=== PATIENT | female | born 1945 | race African-American/Black ===

== ENCOUNTER → 2016-07-29 | Emergency (ER) | payer OTHER ==
[2016-07-29 15:05] VITALS: BP 192/117; PULSE 115; TEMP 99.6; BMI 33.2
== END | disposition left against medical advice (07) ==
LOC: EDBD → JER 14:40
DX: Z53.21 Procedure and treatment not carried out due to patient leaving prior to being seen by health care provider (principal)
CPT/HCPCS: 99281-25

== ENCOUNTER 2020-01-14 19:24 | Inpatient (IN) | payer OTHER ==
--- NOTE | 2020-01-14 20:00 | PDOC ---
History of Present Illness - General Stated Complaint: WEAKNESS Time Seen by Provider: 01/14/20 19:37 - History of Present Illness Initial Comments: Pt is 74yo F brought by EMS from [facility] for unresponsiveness x2days. Unresponsive to verbal or painful stimulation. Spoke with patients daughter who states that patient had stroke 3 months ago and has been declining since then. States that the patient was awake yesterday, but unwell. States that patient has been awake, responsive, moving extremities, however is bedbound and aphasic. PMH: HTN, HLD, stroke w/ aphasia, pressure ulcer, ESRD on HD Meds: acetaminophen, amlodipine, atorvastatin, clopidogrel, labetalol, ursodiol, valsartan, nephrovite, famotidine, albuterol tPA Exclusion checklist 3-4.5h - Time Elapsed Date last known well: 01/13/20 Time last known well: 16:00 Elaspsed time: 1 Day(s) and 9 Hour(s) and 52 Minutes - Thrombolytic Therapy Candidate Is patient eligible for thrombolytic therapy: No - Exclusion Criteria 3-4.5 hr SBP greater than 185 or DBP greater than 110mmHg despite tx: No Recent IC/spinal surgery,head trauma or stroke<3mos.: Yes Blding diathesis(low plt ct, inc PTT,INR>1.7 or use of NOAC): No Blood glucose concentration less than 50mg/dL (2.7mmol/L): No - Relative Exclusion Criteria 3-4.5 hr IV/IA thrombolysis/thrombectomy @ another hosp prior arrival: No : No Stroke severity too mild (non-disabling): No Recent acute NE (w/in previous 3 months): No Major surgery or serious trauma w/in previous 14 days: No Recent GI or hemorrhage (w/in previous 21 days): No - Add'l Relative Exclusion 3-4.5 hr Age > 80: No Hx of both diabetes AND prior ischemic stroke: No Taking an oral anticoagulant regardless of INR: No - Ineligibility reason(s) Reasons No tPA given: Outside of window - delayed arrival NIH Stroke Scale - Last Known Well Date/Time & Onset Date Last Known Well: 01/13/20 Time Last Known Well: 16:00 - Initial Evaluation Level of consciousness: Not alert, requires repeat stimulation to attend Ask patient the month and their age: Both incorrect Ask patient to open & close eyes; make fist and let go: Both incorrect Best gaze (horizontal eye movement): Normal Visual field testing: Bilateral hemianopia (blind including cortical blindness) Facial paresis (Show teeth/raise eyebrows/close eyes tight): Normal symmetrical movement Motor Function: Left Arm: No movement Motor Function: Right Arm: No movement Motor Function: Left Leg: No movement Motor Function: Right Leg: No movement Limb Ataxia: Untestable (Joint fused or limb amputated), explain: Sensory(Use pinprick test arms,legs,trunk,face/side to side): Mild to moderate decrease in sensation Best language (Describe picture, name items, read sentences): Mute Dysarthria (read several words): Near unintelligible or unable to speak Extinction and Inattention: Profound nickolas-inattention or extinction to more than one modality - Total Score NIH Stroke Scale Score: 33 Past History - Medical History Allergies/Adverse Reactions: Allergies Allergy/AdvReac Type Severity Reaction Status Date / Time propofol AdvReac Verified 07/29/16 15:05 Home Medications: Ambulatory Orders Furosemide [Lasix -] 40 mg PO DAILY 08/07/14 Minoxidil 5 mg PO DAILY 08/07/14 Amlodipine Besylate [Norvasc -] 10 mg PO DAILY #30 tablet 05/14/16 Docusate Sodium [Colace -] 100 mg PO BID #60 capsule 05/14/16 Furosemide [Lasix -] 40 mg PO DAILY #0 tablet 05/14/16 Furosemide [Lasix -] 40 mg PO DAILY #30 tablet 05/14/16 Isosorbide Mononitrate [Imdur -] 60 mg PO DAILY #30 tab.sr.24h 05/14/16 Labetalol HCl [Normodyne -] 300 mg PO TID #270 tablet 05/14/16 Minoxidil 5 mg PO DAILY #60 tablet 05/14/16 Minoxidil [Minoxidil -] 5 mg PO DAILY tablet 05/14/16 Pantoprazole Sodium [Protonix -] 40 mg PO DAILY #30 tablet.ec 05/14/16 hydrALAZINE HCL [Apresoline -] 100 mg PO TID #180 tablet 05/14/16 Anemia: No Asthma: No Cancer: No Cardiac Disorders: No CVA: No COPD: No CHF: No Dementia: No Diabetes: Yes Dialysis: Yes GI Disorders: Yes (GERD) Disorders: No HTN: Yes Hypercholesterolemia: No Liver Disease: No Seizures: No Thyroid Disease: No - Surgical History Abdominal Surgery: No Appendectomy: No Cardiac Surgery: No Cholecystectomy: No Lung Surgery: No Neurologic Surgery: No Orthopedic Surgery: No - Immunization History Immunization Up to Date: Yes - Psycho-Social/Smoking History Smoking Status: No Smoking History: Never smoked Have you smoked in the past 12 months: No Number of Cigarettes Smoked Daily: 0 Review of Systems - Review of Systems Able to Perform ROS?: No Comments:: unable to obtain ROS to due unresponsiveness *Physical Exam - Physical Exam General: thin appearing CV: tachycardic, normal S1,S2, systolic murmur, no peripheral edema Resp: CTA b/l, equal breath sounds b/l, no wheezing, crackles Neuro: 0/5 motor strength b/l extremities, fixed constricted L pupil, minimally responsive to painful stimuli ED Treatment Course - LABORATORY CBC & Chemistry Diagram: 01/14/20 20:10 01/14/20 20:10 - ADDITIONAL ORDERS Additional order review: Laboratory Results 01/14/20 19:49 POC Glucometer 282 01/14/20 19:49 POC Glucometer 282 - RADIOLOGY Radiology Studies Ordered: Category Date Time Status HEAD CT WITHOUT CONTRAST [CT] Stat CT Scan 01/14/20 19:49 Ordered CHEST X-RAY PORTABLE* [RAD] Stat Radiology 01/14/20 19:47 Ordered Medical Decision Making - Medical Decision Making Pt is a 74yo F with Hx of CVA w/ aphasia and L paralysis, ESRD on HD MWF, HTN, HLD, who presents from [facility] for unresponsiveness. Vital Signs Period Temp Pulse Resp BP Sys/Ramirez Pulse Ox Last 24 Hr 98.2 F-98.2 F 111 19 122/69 90 DDx: CVA, sepsis, electrolyte abnormality, uremia Plan: labs, CT head and neck, CXR, EKG CBC with leukocytosis (WBC 17.7), lactate 3.2; CMP with hyperkalemia (5.9), elevated LFTs, elevated troponin (0.22), hypoalbuminemia Head CT with acute cerebral edema in R parietal, temporal, occipital; CT spine with no acute cervical spine fracture or dislocation; CXR with midline airway, appropriate vascular markings, no blunting of costophrenic angle, no cardiomegaly, no consolidation/patchiness On arrival, patient was saturating 90%, and put on 3L NC. On re-assessment, patient is slightly more responsive, grimacing to verbal stimuli, moving all 4 extremities, no gag reflex, continues to be tachycardic. Given tachycardia, leukocytosis, elevated lactate, pt was given 1 dose of vancomycin and 1L bolus of fluids with 75cc/hr drip, as per renal recommendations. She will receive dialysis tomorrow. Consulted Renal (Dr. Chowdhury), consulted neuro (Dr. Newman) Code status discussed with Cristal, patients daughter - DNR, not DNI Repeat Lactate trending up. Ordered ABG, BMP, and repeat lactate. Case discussed with Marguerite Gallo. Accepts for admission to ICU. No intubation at this time. Disposition Admit to ICU Discharge - Discharge Information Problems reviewed: Yes Clinical Impression/Diagnosis: Stroke Condition: Guarded - Admission Yes - Follow up/Referral - Patient Discharge Instructions - Post Discharge Activity
[2020-01-14 20:42] LABS: BASO % 0.7 % (0-2.0); EOS % 0.5 % (0-4.5); HEMOGLOBIN 11.9 GM/dL (10.7-15.3); LYMPH % 10.7 % (8-40); MCH 31.2 pg (25.7-33.7); MCHC 32.1 g/dl (32.0-36.0); MEAN CELL VOLUME 97.1 fl (80-96); MEAN PLT VOLUME 9.3 fl (7.5-11.1); MONO % 6.7 % (3.8-10.2); NEUT % 81.4 % (42.8-82.8); PLATELET COUNT 588 K/MM3 (134-434); RBC 3.81 M/mm3 (3.60-5.2); WHITE BLOOD COUNT 17.7 K/mm3 (4.0-10.0)
[2020-01-14 20:48] LABS: INR 1.02 (0.83-1.09)
[2020-01-14 20:50] LABS: ACTIVATED PTT 29.7 SECONDS (25.2-36.5)
[2020-01-14 21:04] LABS: VENOUS BASE EXCESS -2.2 mmol/L (-2-2); VENOUS O2 SATURATION 91.9 % (70-80); VENOUS PH 7.309 (7.310-7.410)
[2020-01-14 21:08] LABS: ALBUMIN 2.3 g/dl (3.4-5.0); BILIRUBIN,TOTAL 0.7 mg/dL (0.2-1); BLOOD UREA NITROGEN 62.4 mg/dL (7-18); CALCIUM 9.8 mg/dL (8.5-10.1); CREATININE 5.7 mg/dL (0.55-1.3); POTASSIUM 5.9 mmol/L (3.5-5.1); TOT PROT 8.1 g/dl (6.4-8.2)
--- NOTE | 2020-01-14 21:18 | PDOC ---
Documentation entered by Reyna Victor SCRIBE, acting as scribe for Sera Brown MD. Sera Brown MD: This documentation has been prepared by the scribe, Reyna Victor SCRIBE, under my direction and personally reviewed by me in its entirety. I confirm that the documentation accurately reflects all work, treatment, procedures, and medical decision making performed by me. Attending Attestation - Resident Resident Name: Janet Devi - ED Attending Attestation I have performed the following: I have examined & evaluated the patient, The case was reviewed & discussed with the resident, I agree w/resident's findings & plan, Exceptions are as noted - HPI HPI: 01/14/20 19:51 Patient is a 74 year old female with a significant past medical history of ESRD, hypertension, DMII, GERD, HTN, and HL, who presents to the ED, BIBA, for being unresponsive x2 days. HPI is limited to the patient being unresponsive. Allergies: propofol - Physicial Exam PE: 01/14/20 21:12 cachetic 74 yo [facility] who has been nonresponsive today. head no scalp laceration lungs no wheezing cvs tachycardia abdomen flat skin warm and dry neuro nonverbal ,does not respond to sternal rub 01/14/20 22:36 - Medical Decision Making 01/14/20 21:17 PMH DM,dememtia, left sided weakness daughter states this pt had a stroke 3 months ago and has been nonverbal since that time she is bed bound at baseline according to the daughter 01/14/20 22:06 ct scan head reveals : there is right pareital,occipital and temporal lobe suggestive of acute CVA no acute intracranial bleed I spoke with Dr Kelvin Hogan ,radiologist, and there is no midline shift, no mass effect pt is not tpa candidate,outside the time window Neurology was contacted , Dr Plascencia Hogshead Inspector Dr Raman Chowdhury was consulted and will have her go to dialysis Wednesday01/15/20 00:29 pt is now alert,nonverbal at baseline 01/15/20 17:38 Discharge - Discharge Information Problems reviewed: Yes Clinical Impression/Diagnosis: Stroke Condition: Guarded - Follow up/Referral - Patient Discharge Instructions - Post Discharge Activity
[2020-01-14] MEDS ORDERED: VANCOMYCIN 1 GM in D5W (PRE-DOCKED) 1,000 MG/250 ML IVPB STA (22:04)
[2020-01-14] MEDS ORDERED: SODIUM CHLORIDE 250 ML IV PRN (22:28)
[2020-01-14] MEDS ORDERED: SODIUM CHLORIDE 0.9% 500 ML INFUS.BAG IV ONE (22:30)
[2020-01-14] MEDS ORDERED: SODIUM CHLORIDE 1,000 ML IV SCH (22:45)
[2020-01-14] MEDS ORDERED: VANCOMYCIN 1 GRAM (PRE-DOCKED) 1,000 MG/250 ML BAG IVPB ONE (23:01)
[2020-01-14 23:14] LABS: ANISOCYTOSIS 2+
[2020-01-14] MEDS ORDERED: CALCIUM GLUCONATE 10% - 1,000 MG/10 ML VIAL IVPB ONE (23:15)
[2020-01-14] MEDS ORDERED: DEXTROSE 50%-WATER - 25 GM/50 ML VIAL IVPUSH ONE (23:16)
[2020-01-14] MEDS ORDERED: INSULIN REGULAR HUMAN 100 UNITS/ML *VIAL IVPUSH STA (23:17)
[2020-01-14] MEDS ORDERED: DEXTROSE 50%-WATER 25 GM/50 ML DISP.SYRIN ONE (23:20)
[2020-01-14] MEDS ORDERED: CALCIUM GLUCONATE 10% - 1,000 MG/10 ML VIAL ONE (23:20)
[2020-01-15 01:53] LABS: ALLENS TEST POSITIVE
[2020-01-15 01:56] LABS: ARTERIAL BLOOD GAS BASE EXCESS -5.4 mmol/L (-2-2); ARTERIAL BLOOD GAS PO2 161.5 mmHg (80-100); ARTERIAL BLOOD GAS pH 7.333 (7.350-7.450)
[2020-01-15 02:30] LABS: BLOOD UREA NITROGEN 64.9 mg/dL (7-18); CALCIUM 9.6 mg/dL (8.5-10.1); CREATININE 5.8 mg/dL (0.55-1.3); POTASSIUM 3.5 mmol/L (3.5-5.1)
--- NOTE | 2020-01-15 06:23 | CONSULT ---
Consult Consult Specialty:: PULM/CCM Referred by:: Kevin Saleh Reason for Consultation:: AMS - History of Present Illness Chief Complaint: AMS History of Present Illness: 74 year old female with medical history of ESRD (on HD), hypertension, DMII, GERD, HTN, HL, aphasia and stroke 3 months ago, admitted to ICU fro ED for progressive weakness and reported unresponsiveness. Head CT showed (01/13) right pareital, occipital and temporal lobe suggestive of acute CVA no acute intracranial bleed (neurology consulted). Patient is a DNR but not DNI. 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 No: AFIB, Aneurysm, Aortic Insufficiency, Aortic Stenosis, CAD, CHF, Deep Vein Thrombosis, Hyperlipdemia, NH, Mitral Insufficiency, Mitral Stenosis, Other Pulmonary: Yes: Previously Intubated Renal/: Yes: Renal Failure, Hemodialysis. No: Renal Inusuff, Cancer, Hematuria, Neurogenic Bladder, Renal Calculi, UTI, Other ...: No - Past Surgical History Past Surgical History: Yes: AV Fistula/Graft. No: None, AAA Repair, AICD, Amputation, Appendectomy, Arthrosocopy, Bariatric Surgery, Breast Biopsy, Bypass, CABG, Carotid Endarterectomy, Cataract Removal, Cholecystectomy, Colectomy, Colonoscopy, Colostomy, Craniotomy, , Cystectomy, Hernia Repair, Hysterectomy, Ileal Conduit, Ileosotomy, Joint Replacement, Kidney Transplant, Laminectomy, Liver Transplant, Mastectomy, Nephrectomy, Oopherectomy, Permanent Pacemaker, Splenectomy, Stent, Thoracotomy, Tonsillectomy, Tubal Ligation, Upper Endoscopy, Valve Replacement, Vein Stripping/Ligation - Alcohol/Substance Use Hx Alcohol Use: No - Smoking History Smoking history: Never smoked Have you smoked in the past 12 months: No Aproximately how many cigarettes per day: 0 - Social History Usual Living Arrangement: With Child Home Medications - Allergies Allergies/Adverse Reactions: Allergies Allergy/AdvReac Type Severity Reaction Status Date / Time propofol AdvReac Verified 07/29/16 15:05 - Home Medications Home Medications: Ambulatory Orders Albuterol Sulfate Inhaler - [Ventolin Hfa Inhaler -] 1 - 2 inh PO QID 01/15/20 Amlodipine Besylate 10 mg PO DAILY 01/15/20 Atorvastatin Ca [Lipitor] 40 mg PO HS 01/15/20 Clopidogrel Bisulfate [Clopidogrel] 75 mg PO DAILY 01/15/20 Famotidine [Pepcid -] 40 mg PO DAILY 01/15/20 Labetalol HCl [Normodyne -] 200 mg PO BID 01/15/20 Ursodiol [Actigal] 300 mg PO BID 01/15/20 Valsartan 160 mg PO DAILY 01/15/20 Review of Systems Unable to obtain ROS, reason: unable to obtain - Review of Systems Respiratory: reports: Other (intubated) Gastrointestinal: reports: Vomiting Physical Exam Vital Signs: Vital Signs Temperature 100.8 F H 01/15/20 02:00 Pulse Rate 92 H 01/15/20 04:00 Respiratory Rate 15 01/15/20 04:00 Blood Pressure 135/74 01/15/20 04:00 O2 Sat by Pulse Oximetry (%) 100 01/15/20 01:38 Constitutional: Yes: Cachectic Eyes: Yes: WNL, Conjunctiva Clear, EOM Intact HENT: Yes: WNL, Atraumatic, Normocephalic Neck: Yes: WNL, Supple, Trachea Midline Cardiovascular: Yes: WNL, Regular Rate and Rhythm, Pulse Irregular Respiratory: Yes: WNL, Regular, CTA Bilaterally Gastrointestinal: Yes: WNL, Normal Bowel Sounds ...Rectal Exam: Yes: Deferred Renal/: Yes: WNL Breast(s): Yes: WNL Musculoskeletal: Yes: Muscle Weakness, Other (Some movement in RUE and RLE with pain) Edema: Yes Edema: LUE: 1+, RUE: 1+ Integumentary: Yes: WNL Neurological: Yes: Aphasia, Weakness Labs: CBC, BMP 01/14/20 20:10 01/15/20 01:38 Imaging - Results X-ray: Image Reviewed (Personal read: no opacities noted) Problem List - Problems (1) ESRD on dialysis Code(s): N18.6 - END STAGE RENAL DISEASE; Z99.2 - DEPENDENCE ON RENAL DIALYSIS (2) Altered mental status Code(s): R41.82 - ALTERED MENTAL STATUS, UNSPECIFIED (3) Diabetes Code(s): E11.9 - TYPE 2 DIABETES MELLITUS WITHOUT COMPLICATIONS (4) Lactic acidosis Code(s): E87.2 - ACIDOSIS (5) Pneumonia, aspiration Code(s): J69.0 - PNEUMONITIS DUE TO INHALATION OF FOOD AND VOMIT Assessment/Plan 74yo F with Hx of CVA w/ aphasia and L paralysis, ESRD on HD MWF, HTN, HLD admitted to ICU for lethargy/unresponsiveness. -Neuro checks -Neuro consulted -Continue IVF as per renal, will probably receive HD today -Titrate FiO2 for SaO2>92% -Keep NPO -Empiric abx for possible aspiration PNA -Follow up on cultures -Fingersticks -Insulin coverage scale Dispo: Patient DNR not DNI
[2020-01-15] MEDS ORDERED: ACETAMINOPHEN 1000 MG/100 ML VIAL (NON FORMULARY) IVPB ONE (06:39)
[2020-01-15] MEDS: INSULIN SLIDING SCALE (NOVOLOG) 1 VIAL SQ SCH ×4 (07:52→21:15)
[2020-01-15 09:05] LABS: HEMATOCRIT 40.3 % (32.4-45.2); HEMOGLOBIN 12.5 GM/dL (10.7-15.3); MCH 30.6 pg (25.7-33.7); MEAN CELL VOLUME 98.7 fl (80-96); MEAN PLT VOLUME 9.2 fl (7.5-11.1); PLATELET COUNT 504 K/MM3 (134-434); RBC 4.08 M/mm3 (3.60-5.2); RDW 21.6 % (11.6-15.6); WHITE BLOOD COUNT 17.1 K/mm3 (4.0-10.0)
--- NOTE | 2020-01-15 09:35 | EKG ---
Test Reason : Blood Pressure : / mmHG Vent. Rate : 113 BPM Atrial Rate : 113 BPM P-R Int : 152 ms QRS Dur : 120 ms QT Int : 370 ms P-R-T Axes : 075 -09 180 degrees QTc Int : 507 ms SINUS TACHYCARDIA LEFT VENTRICULAR HYPERTROPHY WITH QRS WIDENING IVCD ABNORMAL ECG WHEN COMPARED WITH ECG OF 10-MAY-2016 15:43, No significant changes Confirmed by Olga Lidia Brennan ([id number]) on 01/15/2020 9:35:02 AM Referred By: Confirmed By:Olga Lidia Brennan
[2020-01-15 09:40] LABS: ALBUMIN 2.3 g/dl (3.4-5.0); BILIRUBIN,TOTAL 0.7 mg/dL (0.2-1); CALCIUM 9.7 mg/dL (8.5-10.1); PHOSPHOROUS 2.6 mg/dL (2.5-4.9); POTASSIUM 4.5 mmol/L (3.5-5.1); TOT PROT 8.3 g/dl (6.4-8.2)
--- NOTE | 2020-01-15 09:48 | CON.NEURO ---
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 No: AFIB, Aneurysm, Aortic Insufficiency, Aortic Stenosis, CAD, CHF, Deep Vein Thrombosis, Hyperlipdemia, CA, Mitral Insufficiency, Mitral Stenosis, Other Pulmonary: Yes: Previously Intubated Renal/: Yes: Renal Failure, Hemodialysis. No: Renal Inusuff, Cancer, Hematuria, Neurogenic Bladder, Renal Calculi, UTI, Other ...: No - Past Surgical History Past Surgical History: Yes: AV Fistula/Graft. No: None, AAA Repair, AICD, Amputation, Appendectomy, Arthrosocopy, Bariatric Surgery, Breast Biopsy, Bypass, CABG, Carotid Endarterectomy, Cataract Removal, Cholecystectomy, Colectomy, Colonoscopy, Colostomy, Craniotomy, , Cystectomy, Hernia Repair, Hysterectomy, Ileal Conduit, Ileosotomy, Joint Replacement, Kidney Transplant, Laminectomy, Liver Transplant, Mastectomy, Nephrectomy, Oopherectomy, Permanent Pacemaker, Splenectomy, Stent, Thoracotomy, Tonsillectomy, Tubal Ligation, Upper Endoscopy, Valve Replacement, Vein Stripping/Ligation - Alcohol/Substance Use Hx Alcohol Use: No - Smoking History Smoking history: Never smoked Have you smoked in the past 12 months: No Aproximately how many cigarettes per day: 0 - Social History Usual Living Arrangement: With Child Home Medications - Allergies Allergies/Adverse Reactions: Allergies Allergy/AdvReac Type Severity Reaction Status Date / Time propofol AdvReac Verified 07/29/16 15:05 - Home Medications Home Medications: Ambulatory Orders Albuterol Sulfate Inhaler - [Ventolin Hfa Inhaler -] 1 - 2 inh PO QID 01/15/20 Amlodipine Besylate 10 mg PO DAILY 01/15/20 Atorvastatin Ca [Lipitor] 40 mg PO HS 01/15/20 Clopidogrel Bisulfate [Clopidogrel] 75 mg PO DAILY 01/15/20 Famotidine [Pepcid -] 40 mg PO DAILY 01/15/20 Labetalol HCl [Normodyne -] 200 mg PO BID 01/15/20 Ursodiol [Actigal] 300 mg PO BID 01/15/20 Valsartan 160 mg PO DAILY 01/15/20 Physical Exam-Neuro Vital Signs: Vital Signs Temperature 100.7 F H 01/15/20 08:42 Pulse Rate 90 01/15/20 08:42 Respiratory Rate 17 01/15/20 09:00 Blood Pressure 128/72 01/15/20 08:42 O2 Sat by Pulse Oximetry (%) 100 01/15/20 01:38 Labs: CBC, BMP 01/15/20 08:40 01/15/20 08:40 INR, PTT INR 1.02 (0.83-1.09) 01/14/20 20:10 Assessment/Plan cc Unreponsiveness HPI 74 year old female brought patient from [place] for unreponsivness for two days p rior to admission. Patient has history of stroke three months ago and has been decline since than. Patinet has been awake two days agoa and slowly became aphasic and unreponsive. Patient has no seizure, she has high wbc and suspected to have aspiration pneumonia. Patient has large right mca cerebral edema. She is intubated and not on any sedation and no reponse to painful stimuli her nih score was 33 and she was out of window for tpa on arriaval PMH: HTN, HLD, stroke w/ aphasia, pressure ulcer, ESRD on HD Meds: acetaminophen, amlodipine, atorvastatin, clopidogrel, labetalol, ursodiol, valsartan, nephrovite, famotidine, albuterol Allergies/Adverse Reactions: Allergies Allergy/AdvReac Type Severity Reaction Status Date / Time propofol AdvReac Verified 07/29/16 15:05 Home Medications: Furosemide [Lasix -] 40 mg PO DAILY 08/07/14 Minoxidil 5 mg PO DAILY 08/07/14 Amlodipine Besylate [Norvasc -] 10 mg PO DAILY #30 tablet 05/14/16 Docusate Sodium [Colace -] 100 mg PO BID #60 capsule 05/14/16 Furosemide [Lasix -] 40 mg PO DAILY #0 tablet 05/14/16 Furosemide [Lasix -] 40 mg PO DAILY #30 tablet 05/14/16 Isosorbide Mononitrate [Imdur -] 60 mg PO DAILY #30 tab.sr.24h 05/14/16 Labetalol HCl [Normodyne -] 300 mg PO TID #270 tablet 05/14/16 Minoxidil 5 mg PO DAILY #60 tablet 05/14/16 Minoxidil [Minoxidil -] 5 mg PO DAILY tablet 05/14/16 Pantoprazole Sodium [Protonix -] 40 mg PO DAILY #30 tablet.ec 05/14/16 hydrALAZINE HCL [Apresoline -] 100 mg PO TID #180 tablet 05/14/16 ROS,FH,SH reviewed in chart NEUROLOGICAL EXAMINATION comatose intubated and no reponse to pain or verba stimuli neck is supple afebrile pupils is small sluggsihly reactive gag and corneal reflex is present bp is maintained ct head showed large right mca cerebral edema Assessment/Plan 1. Lare right mca acute stroke with aspiriation pneumoia ,cme with unreponsiveness, no knwn seizure ?? suffered anoxic injury, patient is intuabted and no reponse to pain or verbal stimuli Plan: prongnosis is poor - continue antiplatelet and statin -repeat ct can be obtained tomorrow - eeg can be obtained - supportive care, Abx as per Primary dvt prophylaxis, Pippa sol so much Norman Plascencia MD
[2020-01-15] MEDS ORDERED: PIPERACILLIN/TAZOB 2.25 GM 2.25 GM in DEXTROSE 5%-WATER - 50 ML IVPB SCH (10:00)
--- NOTE | 2020-01-15 10:37 | CON.NEP ---
Consult Consult Specialty:: Nephrology - History of Present Illness History of Present Illness: 74 year old female with medical history of ESRD (on HD), hypertension, DMII, GERD, HTN, HL, aphasia and stroke 3 months ago, admitted to ICU fro ED for progressive weakness and reported unresponsiveness. Head CT showed (01/13) right pareital, occipital and temporal lobe suggestive of acute CVA no acute intracr anial bleed (neurology consulted) Pt is well known to me. She has been losing a lot of weight. Her BP was always an issue but she seemed to be noncomplaint with meds. She was admitted many times to [facility] and after last admission for cva was transferred to SNF where she is dialyzed as well. She has been aphasic since her last stroke. Of note years ago an attempt was made to create a fistula but she became very bradycardic after she was given midazolam, fentanyl and then propofol. 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 No: AFIB, Aneurysm, Aortic Insufficiency, Aortic Stenosis, CAD, CHF, Deep Vein Thrombosis, Hyperlipdemia, PR, Mitral Insufficiency, Mitral Stenosis, Other Pulmonary: Yes: Previously Intubated Renal/: Yes: Renal Failure, Hemodialysis. No: Renal Inusuff, Cancer, Hematuria, Neurogenic Bladder, Renal Calculi, UTI, Other ...: No - Past Surgical History Past Surgical History: Yes: AV Fistula/Graft. No: None, AAA Repair, AICD, Amputation, Appendectomy, Arthrosocopy, Bariatric Surgery, Breast Biopsy, Bypass, CABG, Carotid Endarterectomy, Cataract Removal, Cholecystectomy, Colectomy, Colonoscopy, Colostomy, Craniotomy, , Cystectomy, Hernia Repair, Hysterectomy, Ileal Conduit, Ileosotomy, Joint Replacement, Kidney Transplant, Laminectomy, Liver Transplant, Mastectomy, Nephrectomy, Oopherectomy, Permanent Pacemaker, Splenectomy, Stent, Thoracotomy, Tonsillectomy, Tubal Ligation, Upper Endoscopy, Valve Replacement, Vein Stripping/Ligation - Alcohol/Substance Use Hx Alcohol Use: No - Smoking History Smoking history: Never smoked Have you smoked in the past 12 months: No Aproximately how many cigarettes per day: 0 - Social History Usual Living Arrangement: With Child Home Medications - Allergies Allergies/Adverse Reactions: Allergies Allergy/AdvReac Type Severity Reaction Status Date / Time propofol AdvReac Verified 07/29/16 15:05 - Home Medications Home Medications: Ambulatory Orders Albuterol Sulfate Inhaler - [Ventolin Hfa Inhaler -] 1 - 2 inh PO QID 01/15/20 Amlodipine Besylate 10 mg PO DAILY 01/15/20 Atorvastatin Ca [Lipitor] 40 mg PO HS 01/15/20 Clopidogrel Bisulfate [Clopidogrel] 75 mg PO DAILY 01/15/20 Famotidine [Pepcid -] 40 mg PO DAILY 01/15/20 Labetalol HCl [Normodyne -] 200 mg PO BID 01/15/20 Ursodiol [Actigal] 300 mg PO BID 01/15/20 Valsartan 160 mg PO DAILY 01/15/20 Review of Systems Unable to obtain ROS, reason: pt is unresponsive Nephrology Consult - Height Height: 5 ft 5 in - Weight Weight: 77 lb 5 oz - BMI Body Mass Index (BMI): 12.8 - Lab Results CBC,BMP: CBC, BMP 01/15/20 08:40 01/15/20 08:40 Anion Gap: Anion Gap Anion Gap 15 MMOL/L (8-16) 01/15/20 08:40 - Imaging Chest X-ray: Report Reviewed - Physical Examination Vital Signs: Vital Signs Temperature 100.7 F H 01/15/20 08:42 Pulse Rate 90 01/15/20 08:42 Respiratory Rate 17 01/15/20 09:00 Blood Pressure 128/72 01/15/20 08:42 O2 Sat by Pulse Oximetry (%) 100 01/15/20 01:38 Constitutional: Yes: No Distress, Thin Eyes: Yes: Conjunctiva Clear HENT: Yes: Atraumatic Neck: Yes: Supple, Trachea Midline Cardiovascular: Yes: Regular Rate and Rhythm Respiratory: Yes: Regular, CTA Bilaterally Gastrointestinal: Yes: Normal Bowel Sounds Access for Hemodialysis: Permacath Edema: No Peripheral Pulses WNL: Yes Wound/Incision: Yes: Clean/Dry Neurological: Yes: Unresponsive Assessment/Plan IMPRESSION esrd h/o very poorly controlled htn for years now resulting in 2 cva's. Last one was 3 months ago HTN dementia at baseline PLAN will be dialyzed neurology eval noted continue plavix will follow HD orders [facility]
--- NOTE | 2020-01-15 14:06 | PN ---
Progress Note (short form) - Note Progress Note: TRANSFER NOTE Subjective: Patient was seen and evaluated, on 4L nasal canula satting 98%, and responded only to sternal rub. Objective: General: responsive only to sternal rub, cachectic, on 4L nasal canula Head: nontraumatic, normocephalic Eyes: pinpoint pupils, mildly reactive to light Heart: S1, S2, RRR, mild systolic murmur Lungs: CTAB Abdomen: deflated/shrunken, decreased BS Extremities: cold to touch, cachectic, dry, decreased cap refill Hospital Course: 74 yo F with PMHx of ESRD on HD, HTN, DM, GERD, HLD, CVA who presented from [place] due to two days of non-responsiveness. Per daughter, the patient had a stroke 3 months ago and has been aphasic and bed bound since then. ED course was remarkable for fever, leukocytosis, lactate 3.2 (now risen to 5.8), and head CT showing acute R temporoparietal cortical infarct and subacute L frontal cortical infarct. Patient admitted to ICU for tenuous condition. Patient has been breathing comfortably on 4L nasal canula. Nephrology and Neurology were consulted, HD today per nephro and continue antiplatelet, statin, repeat CT tomorrow, and EEG per neuro. Patient has been optimized for transfer to the stroke floor. #Neuro AMS likely due to stroke - started clopidogrel #Cardio HTN (currently normotensive), HLD - continued home atorvastatin #Renal ESRD lactic acidosis - receiving HD today #Endo DM2 without complications - insulin SS #ID leukocytosis - on broad spectrum abx #FEN - IVF NS - replete lytes PRN - nutrition - dietary consult pending
[2020-01-15 15:19] LABS: ANISOCYTOSIS 1+; MACROCYTOSIS 1+
[2020-01-15 15:21] LABS: PLATELET ESTIMATE ADEQUATE
--- NOTE | 2020-01-15 15:43 | PN ---
Progress Note (short form) - Note Progress Note: ID consult dictated imp/reccd new cva leukocytosis esrd/hd cannot r/o aspiration repeat cxray cultures zosyn got vancomycin last night overall prognosis is poor
--- NOTE | 2020-01-15 16:05 | HP ---
Admitting History and Physical - Primary Care Physician PCP: Frederic Helms - Admission History of Present Illness: Pt seen/ examined in icu chart reviewed Case d/w icu team Pt known to me from recent admission [facility] Unresponsive History Source: Medical Record Limitations to Obtaining History: Clinical Condition - Past Medical History UPPER CUTTER OUT: Yes: CVA, Dementia Cardiovascular: Yes: HTN, Murmur, Pulmonary Hypertension. No: AFIB, Aneurysm, Aortic Insufficiency, Aortic Stenosis, CAD, CHF, Deep Vein Thrombosis, Hyperlipdemia, DE, Mitral Insufficiency, Mitral Stenosis, Other Pulmonary: Yes: Previously Intubated Renal/: Yes: Renal Failure, Hemodialysis. No: Renal Inusuff, Cancer, Hematuria, Neurogenic Bladder, Renal Calculi, UTI, Other ...: No - Past Surgical History Past Surgical History: Yes: AV Fistula/Graft. No: None, AAA Repair, AICD, Amputation, Appendectomy, Arthrosocopy, Bariatric Surgery, Breast Biopsy, Bypass, CABG, Carotid Endarterectomy, Cataract Removal, Cholecystectomy, Colectomy, Colonoscopy, Colostomy, Craniotomy, , Cystectomy, Hernia Repair, Hysterectomy, Ileal Conduit, Ileosotomy, Joint Replacement, Kidney Transplant, Laminectomy, Liver Transplant, Mastectomy, Nephrectomy, Oopherectomy, Permanent Pacemaker, Splenectomy, Stent, Thoracotomy, Tonsillectomy, Tubal Ligation, Upper Endoscopy, Valve Replacement, Vein Stripping/Ligation - Smoking History Smoking history: Never smoked Have you smoked in the past 12 months: No Aproximately how many cigarettes per day: 0 - Alcohol/Substance Use Hx Alcohol Use: No Home Medications - Allergies Allergies/Adverse Reactions: Allergies Allergy/AdvReac Type Severity Reaction Status Date / Time propofol AdvReac Verified 07/29/16 15:05 - Home Medications Home Medications: Ambulatory Orders Albuterol Sulfate Inhaler - [Ventolin Hfa Inhaler -] 1 - 2 inh PO QID 01/15/20 Amlodipine Besylate 10 mg PO DAILY 01/15/20 Atorvastatin Ca [Lipitor] 40 mg PO HS 01/15/20 Clopidogrel Bisulfate [Clopidogrel] 75 mg PO DAILY 01/15/20 Famotidine [Pepcid -] 40 mg PO DAILY 01/15/20 Labetalol HCl [Normodyne -] 200 mg PO BID 01/15/20 Ursodiol [Actigal] 300 mg PO BID 01/15/20 Valsartan 160 mg PO DAILY 01/15/20 Physical Examination Vital Signs: Vital Signs Temperature 100.7 F H 01/15/20 08:42 Pulse Rate 84 01/15/20 15:30 Respiratory Rate 16 01/15/20 15:30 Blood Pressure 93/76 01/15/20 15:30 O2 Sat by Pulse Oximetry (%) 100 01/15/20 01:38 Constitutional: Yes: Other (unresponsive) Neck: Yes: Supple Cardiovascular: Yes: Regular Rate and Rhythm Respiratory: Yes: Diminished Gastrointestinal: Yes: Soft Edema: LLE: 1+, RLE: 1+ Neurological: Yes: Unresponsive Labs: CBC, BMP 01/15/20 08:40 01/15/20 08:40 Imaging - Results Chest X-ray: Report Reviewed Cat Scan: Report Reviewed EKG: Report Reviewed Problem List - Problems (1) Stroke Code(s): I63.9 - CEREBRAL INFARCTION, UNSPECIFIED (2) Pneumonia, aspiration Code(s): J69.0 - PNEUMONITIS DUE TO INHALATION OF FOOD AND VOMIT (3) Diabetes Code(s): E11.9 - TYPE 2 DIABETES MELLITUS WITHOUT COMPLICATIONS (4) ESRD on dialysis Code(s): N18.6 - END STAGE RENAL DISEASE; Z99.2 - DEPENDENCE ON RENAL DIALYSIS Assessment/Plan Discussed with icu team Continue present care Abx NGT Prognosis poor Pt is dnr Will follow Cc time approx 40 min
--- NOTE | 2020-01-15 18:24 | CONS ---
INFECTIOUS DISEASE CONSULTATION DATE OF CONSULTATION: 01/15/2020 REQUESTING PHYSICIAN: The ICU service. This is a 74-year-old woman with a history of end-stage renal disease. She is on dialysis. She is status post multiple admissions to [facility], and she ultimately had a stroke with aphasia 3 months ago and was from there sent to the assisted. She is now admitted to the ICU after she was sent to the ER from the assisted where she was noted to be unresponsive. She had a CAT scan done on arrival to the ER that showed a right parietal, occipital, and temporal lobe CVA that appeared to be acute/subacute. No bleeding was noted. She was out of the window for any kind of tPA and admitted to the ICU. I am asked to see her because now her white count is up, and there is concern for infection. PAST MEDICAL HISTORY: CVA, dementia, hypertension, pulmonary hypertension. She has had respiratory failure and been intubated in the past. End-stage renal disease on dialysis via PermCath. She has never had a fistula. SURGICAL HISTORY: Notable for PermCath. ALLERGIES: She is allergic to PROPOFOL; MULTIPLE OTHER SEDATIVES cause her bradycardia according to the renal notes. MEDICATIONS AT THE LONG TERM: Include albuterol, amlodipine, atorvastatin, Plavix, famotidine, labetalol, Actigall, and losartan. REVIEW OF SYSTEMS: Patient is unresponsive. FAMILY HISTORY: Not obtainable. PHYSICAL EXAMINATION: Vital Signs: Current temperature is 100.7. She is on dialysis. Pulse is 78. Respiratory rate is 15. Blood pressure is 110/81. She is being dialyzed. HEENT: She is normocephalic. She will not open her eyes. Lungs: Diminished breath sounds at the bases. Heart: Regular rate and rhythm. Abdomen: Soft, nontender. Extremities: Without edema. LABORATORY DATA: White count is 17, hemoglobin is 12.5, platelets are 504. BUN is 63 and creatinine 6. Lactic acid is 5.8. AST of 123, ALT is 96, alkaline phosphatase of 185. COVID PCR is pending. Cultures were drawn and are pending as well. She received vancomycin, has just been started on Zosyn. She had a head CT that, as previously stated, showed acute right temporoparietal cortical infarct and a subacute left frontal cortical infarct. In summary, this is an unfortunate, elderly woman with end-stage renal disease on dialysis with new CVA and leukocytosis. Cannot rule out aspiration pneumonia. Would repeat a chest x-ray. Cultures are pending. She got vancomycin. Would continue Zosyn, adjusted for renal failure. Overall prognosis is poor. PIETER MATHEWS M.D. [id number] MTDD
[2020-01-15] MEDS: SODIUM CHLORIDE 1,000 ML IV SCH (18:39)
[2020-01-15] MEDS: PIPERACILLIN/TAZOB 2.25 GM 2.25 GM in DEXTROSE 5%-WATER - 50 ML IVPB SCH (18:44)
[2020-01-15] MEDS ORDERED: PIPERACILLIN/TAZOBACTAM 2.25 GM VIAL IVPB ONE ×2 (18:55→21:12)
[2020-01-15] MEDS ORDERED: DEXTROSE 5%-WATER - 50 ML IVPB ONE ×2 (18:55→21:12)
[2020-01-15] MEDS: CLOPIDOGREL BISULFATE 75 MG TABLET (FP) PO SCH (19:29)
[2020-01-15] MEDS: ATORVASTATIN CA 40 MG TABLET (FP) PO SCH (21:15)
[2020-01-16] MEDS: PIPERACILLIN/TAZOB 2.25 GM 2.25 GM in DEXTROSE 5%-WATER - 50 ML IVPB SCH ×3 (01:28→18:15)
[2020-01-16 06:55] LABS: BASO % 0.4 % (0-2.0); HEMATOCRIT 34.6 % (32.4-45.2); HEMOGLOBIN 11.3 GM/dL (10.7-15.3); LYMPH % 11.8 % (8-40); MCH 32.2 pg (25.7-33.7); MCHC 32.8 g/dl (32.0-36.0); MEAN CELL VOLUME 98.2 fl (80-96); MEAN PLT VOLUME 9.2 fl (7.5-11.1); MONO % 8.4 % (3.8-10.2); NEUT % 78.4 % (42.8-82.8); PLATELET COUNT 367 K/MM3 (134-434); RBC 3.52 M/mm3 (3.60-5.2); RDW 20.8 % (11.6-15.6); WHITE BLOOD COUNT 9.2 K/mm3 (4.0-10.0)
[2020-01-16 06:59] LABS: ALBUMIN 1.7 g/dl (3.4-5.0); BILIRUBIN,TOTAL 0.6 mg/dL (0.2-1); CALCIUM 7.8 mg/dL (8.5-10.1); CREATININE 3.1 mg/dL (0.55-1.3); MAGNESIUM 1.9 mg/dL (1.8-2.4); PHOSPHOROUS 2.7 mg/dL (2.5-4.9); POTASSIUM 3.4 mmol/L (3.5-5.1)
[2020-01-16] MEDS: INSULIN SLIDING SCALE (NOVOLOG) 1 VIAL SQ SCH ×4 (09:17→22:03)
[2020-01-16] MEDS ORDERED: PIPERACILLIN/TAZOBACTAM 2.25 GM VIAL IVPB ONE ×2 (09:36→22:01)
[2020-01-16] MEDS ORDERED: DEXTROSE 5%-WATER - 50 ML IVPB ONE ×2 (09:36→22:01)
[2020-01-16] MEDS: CLOPIDOGREL BISULFATE 75 MG TABLET (FP) PO SCH (09:49)
--- NOTE | 2020-01-16 11:00 | PN ---
Progress Note, Physician Chief Complaint: POORLY RESPONSIVE NOT VERBALLY RESPONSIVE TEMPS DOWN AFEBRILE BREATHING NON-LABORED WBC IMPROVED BC PRELIM NO GROWTH - Current Medication List Current Medications: Active Medications Atorvastatin Calcium (Lipitor -) 40 mg PO HS [facility] Last Admin: 01/15/20 21:15 Dose: 40 mg Documented by: Clopidogrel Bisulfate (Plavix -) 75 mg PO DAILY [facility] Last Admin: 01/16/20 09:49 Dose: 75 mg Documented by: Sodium Chloride (Normal Saline -) 250 mls @ 3,000 mls/hr IV PRN PRN PRN Reason: Hypotension during Dialysis Stop: 01/15/20 22:28 Sodium Chloride (Normal Saline -) 1,000 mls @ 150 mls/hr IV ASDIR [facility] Last Admin: 01/15/20 18:39 Dose: 150 mls/hr Documented by: Piperacillin Sod/Tazobactam (Sod 2.25 gm/ Dextrose) 50 mls @ 100 mls/hr IVPB Q8H-IV [facility]; Protocol Last Admin: 01/16/20 09:49 Dose: 100 mls/hr Documented by: Insulin Aspart (Novolog Vial Sliding Scale -) 1 vial SQ ACHS [facility]; Protocol Last Admin: 01/16/20 09:17 Dose: Not Given Documented by: - Objective Vital Signs: Vital Signs Temperature 98.7 F 01/16/20 08:00 Pulse Rate 100 H 01/16/20 08:00 Respiratory Rate 24 H 01/16/20 09:00 Blood Pressure 109/66 01/16/20 08:00 O2 Sat by Pulse Oximetry (%) 100 01/15/20 01:38 Constitutional: Yes: No Distress Cardiovascular: Yes: Regular Rate and Rhythm, S1, S2 Respiratory: Yes: CTA Bilaterally Gastrointestinal: Yes: Normal Bowel Sounds, Soft. No: Tenderness Extremities: Yes: Other (+ CONTRACTURES LIMBS COOL) Edema: Yes Edema: LLE: 1+, RLE: 1+ Labs: CBC, BMP 01/16/20 06:10 01/16/20 06:10 INR, PTT INR 1.02 (0.83-1.09) 01/14/20 20:10 Assessment/Plan S/P ACUTE CVA ALTERED MENTATION PROBABLE ASP RLL PNEUMONIA ESRD FEVER/ LEUKOCYTOSIS IMPROVED OBS CONTINUE EMPIRIC ZOSYN VENTILATORY SUPPORT CRITICAL CARE TIME 35MIN
--- NOTE | 2020-01-16 11:05 | PN ---
Teaching Attending Note Name of Resident: Susan Butler ATTENDING PHYSICIAN STATEMENT I saw and evaluated the patient. I reviewed the resident's note and discussed the case with the resident. I agree with the resident's findings and plan as documented. SUBJECTIVE: Patient seen and examined in the ICU. Remains lethargic but protecting her airway and hemodynamics have been stable. Breathing is non-labored on NC O2. No acute events overnight. Intake & Output 01/13/20 01/14/20 01/15/20 01/16/20 23:59 23:59 23:59 23:59 Intake Total 2115 1850 Output Total 0 500 Balance 0 1615 1850 Weight 100 lb 77 lb 5 oz 77 lb 5 oz Last Vital Signs Temp Pulse Resp BP Pulse Ox 98.7 F 100 H 24 H 109/66 100 01/16/20 08:00 01/16/20 08:00 01/16/20 09:00 01/16/20 08:00 01/15/20 01:38 Active Medications Atorvastatin Calcium (Lipitor -) 40 mg PO HS [facility] Last Admin: 01/15/20 21:15 Dose: 40 mg Documented by: Clopidogrel Bisulfate (Plavix -) 75 mg PO DAILY [facility] Last Admin: 01/16/20 09:49 Dose: 75 mg Documented by: Sodium Chloride (Normal Saline -) 250 mls @ 3,000 mls/hr IV PRN PRN PRN Reason: Hypotension during Dialysis Stop: 01/15/20 22:28 Sodium Chloride (Normal Saline -) 1,000 mls @ 150 mls/hr IV ASDIR [facility] Last Admin: 01/15/20 18:39 Dose: 150 mls/hr Documented by: Piperacillin Sod/Tazobactam (Sod 2.25 gm/ Dextrose) 50 mls @ 100 mls/hr IVPB Q8H-IV [facility]; Protocol Last Admin: 01/16/20 09:49 Dose: 100 mls/hr Documented by: Insulin Aspart (Novolog Vial Sliding Scale -) 1 vial SQ ACHS [facility]; Protocol Last Admin: 01/16/20 09:17 Dose: Not Given Documented by: Constitutional: Yes: Cachectic Eyes: Yes: WNL, Conjunctiva Clear, EOM Intact HENT: Yes: WNL, Atraumatic, Normocephalic Neck: Yes: WNL, Supple, Trachea Midline Cardiovascular: Yes: WNL, Regular Rate and Rhythm, Pulse Irregular Respiratory: Yes: WNL, Regular, CTA Bilaterally Gastrointestinal: Yes: WNL, Normal Bowel Sounds ...Rectal Exam: Yes: Deferred Renal/: Yes: WNL Breast(s): Yes: WNL Musculoskeletal: Yes: Muscle Weakness, Other (Some movement in RUE and RLE with pain) Edema: Yes Edema: LUE: 1+, RUE: 1+ Integumentary: Yes: WNL Neurological: Yes: Aphasia, Weakness Labs: Laboratory Results - last 24 hr 01/15/20 01/15/20 01/15/20 00:30 08:40 08:40 WBC 17.1 H RBC Hgb Hct MCV MCH MCHC RDW Plt Count MPV Absolute Neuts (auto) Total Counted 100 Neutrophils % Neutrophils % (Manual) 79.0 Band Neutrophils % 2.0 Lymphocytes % Lymphocytes % (Manual) 13.0 Monocytes % Monocytes % (Manual) 4 Eosinophils % Eosinophils % (Manual) 0.0 Basophils % Basophils % (Manual) 1.0 Nucleated RBC % 0 Metamyelocytes 1 Hypochromia 1+ Platelet Estimate Adequate Platelet Comment Large platelets Anisocytosis 1+ Macrocytosis 1+ Sodium 142 Potassium 4.5 Chloride 106 Carbon Dioxide 21 Anion Gap 15 BUN 63.0 H Creatinine 6.0 H Est GFR (CKD-EPI)AfAm 7.26 Est GFR (CKD-EPI)NonAf 6.27 POC Glucometer Random Glucose 239 H Lactic Acid Calcium 9.7 Phosphorus 2.6 Magnesium Total Bilirubin 0.7 AST 123 H ALT 96 H Alkaline Phosphatase 185 H Total Protein 8.3 H Albumin 2.3 L Beta-Hydroxybutyrate 8.7 H COVID-19 ([place]) Not detected 01/15/20 01/15/20 01/15/20 09:58 12:15 18:19 WBC RBC Hgb Hct MCV MCH MCHC RDW Plt Count MPV Absolute Neuts (auto) Total Counted Neutrophils % Neutrophils % (Manual) Band Neutrophils % Lymphocytes % Lymphocytes % (Manual) Monocytes % Monocytes % (Manual) Eosinophils % Eosinophils % (Manual) Basophils % Basophils % (Manual) Nucleated RBC % Metamyelocytes Hypochromia Platelet Estimate Platelet Comment Anisocytosis Macrocytosis Sodium Potassium Chloride Carbon Dioxide Anion Gap BUN Creatinine Est GFR (CKD-EPI)AfAm Est GFR (CKD-EPI)NonAf POC Glucometer 106 150 Random Glucose Lactic Acid 5.8 H* Calcium Phosphorus Magnesium Total Bilirubin AST ALT Alkaline Phosphatase Total Protein Albumin Beta-Hydroxybutyrate COVID-19 ([place]) 01/15/20 01/16/20 01/16/20 21:05 06:10 06:10 WBC 9.2 RBC 3.52 L Hgb 11.3 Hct 34.6 MCV 98.2 H MCH 32.2 MCHC 32.8 RDW 20.8 H Plt Count 367 D MPV 9.2 Absolute Neuts (auto) 7.2 Total Counted Neutrophils % 78.4 Neutrophils % (Manual) Band Neutrophils % Lymphocytes % 11.8 Lymphocytes % (Manual) Monocytes % 8.4 Monocytes % (Manual) Eosinophils % 1.0 D Eosinophils % (Manual) Basophils % 0.4 Basophils % (Manual) Nucleated RBC % 0 Metamyelocytes Hypochromia Platelet Estimate Platelet Comment Anisocytosis Macrocytosis Sodium 145 Potassium 3.4 L Chloride 110 H Carbon Dioxide 24 Anion Gap 11 BUN 28.0 H Creatinine 3.1 H Est GFR (CKD-EPI)AfAm 16.14 Est GFR (CKD-EPI)NonAf 13.92 POC Glucometer 164 Random Glucose 136 H Lactic Acid Calcium 7.8 L Phosphorus 2.7 Magnesium 1.9 Total Bilirubin 0.6 AST 85 H ALT 56 Alkaline Phosphatase 125 H Total Protein 6.0 L Albumin 1.7 L Beta-Hydroxybutyrate COVID-19 ([place]) Imaging - Results X-ray: Image Reviewed (Personal read: no opacities noted) Problem List - Problems (1) ESRD on dialysis Code(s): N18.6 - END STAGE RENAL DISEASE; Z99.2 - DEPENDENCE ON RENAL DIALYSIS (2) Altered mental status Code(s): R41.82 - ALTERED MENTAL STATUS, UNSPECIFIED (3) Diabetes Code(s): E11.9 - TYPE 2 DIABETES MELLITUS WITHOUT COMPLICATIONS (4) Lactic acidosis Code(s): E87.2 - ACIDOSIS (5) Pneumonia, aspiration Code(s): J69.0 - PNEUMONITIS DUE TO INHALATION OF FOOD AND VOMIT Assessment/Plan History of CVA with aphasia and Left paralysis ESRD on HD MWF HTN HLD CT head per Neuro Aspiration precautions Supplemental O2 as needed Empiric ABX per ID Follow cultures VTE prophylaxis DNR / DNI 4W / 4S monitoring Dr Alonzo
[2020-01-16] MEDS ORDERED: POTASSIUM CHLORIDE TABS 20 MEQ TABLET.ER (FP) PO ONE (11:15)
--- NOTE | 2020-01-16 11:20 | PN ---
Progress Note (short form) - Note Progress Note: non verbal events noted pt examined in ICU Vital Signs - 24 hr 01/15/20 01/15/20 01/15/20 13:55 14:00 14:30 Temperature Pulse Rate 99 H 99 H 87 Respiratory 15 17 16 Rate Blood Pressure 120/73 125/75 112/74 01/15/20 01/15/20 01/15/20 15:00 15:30 16:00 Temperature Pulse Rate 100 H 84 15 L Respiratory 16 16 16 Rate Blood Pressure 106/76 93/76 107/85 01/15/20 01/15/20 01/15/20 16:30 17:00 17:05 Temperature Pulse Rate 78 75 80 Respiratory 15 18 18 Rate Blood Pressure 110/81 110/80 121/84 01/15/20 01/15/20 01/15/20 19:37 20:00 22:00 Temperature Pulse Rate 103 H 89 Respiratory 18 23 H 22 H Rate Blood Pressure 105/66 109/66 01/16/20 01/16/20 01/16/20 00:17 02:00 04:00 Temperature 98.7 F Pulse Rate 88 90 86 Respiratory 19 19 20 Rate Blood Pressure 115/63 104/61 116/93 01/16/20 01/16/20 08:00 09:00 Temperature 98.7 F Pulse Rate 100 H Respiratory 24 H 24 H Rate Blood Pressure 109/66 Current Medications Generic Name Dose Route Start Last Admin Trade Name Freq PRN Reason Stop Dose Admin Atorvastatin Calcium 40 mg 01/15/20 22:00 01/15/20 21:15 Lipitor - PO 40 mg HS [facility] Administration Clopidogrel Bisulfate 75 mg 01/15/20 10:00 01/16/20 09:49 Plavix - PO 75 mg DAILY [facility] Administration Sodium Chloride 250 mls @ 3,000 mls/hr 01/14/20 22:28 Normal Saline - IV 01/15/20 22:28 PRN PRN Hypotension during Dialysis Sodium Chloride 1,000 mls @ 150 mls/hr 01/15/20 13:39 01/15/20 18:39 Normal Saline - IV 150 mls/hr ASDIR [facility] Administration Piperacillin Sod/Tazobactam 50 mls @ 100 mls/hr 01/15/20 18:45 01/16/20 09:49 Sod 2.25 gm/ Dextrose IVPB 100 mls/hr Q8H-IV [facility] Administration Protocol Insulin Aspart 1 vial 01/15/20 07:00 01/16/20 09:17 Novolog Vial Sliding Scale - SQ Not Given ACHS [facility] Protocol Laboratory Results - last 24 hr 01/15/20 01/15/20 01/15/20 00:30 08:40 12:15 WBC 17.1 H RBC Hgb Hct MCV MCH MCHC RDW Plt Count MPV Absolute Neuts (auto) Total Counted 100 Neutrophils % Neutrophils % (Manual) 79.0 Band Neutrophils % 2.0 Lymphocytes % Lymphocytes % (Manual) 13.0 Monocytes % Monocytes % (Manual) 4 Eosinophils % Eosinophils % (Manual) 0.0 Basophils % Basophils % (Manual) 1.0 Nucleated RBC % 0 Metamyelocytes 1 Hypochromia 1+ Platelet Estimate Adequate Platelet Comment Large platelets Anisocytosis 1+ Macrocytosis 1+ Sodium Potassium Chloride Carbon Dioxide Anion Gap BUN Creatinine Est GFR (CKD-EPI)AfAm Est GFR (CKD-EPI)NonAf POC Glucometer 106 Random Glucose Calcium Phosphorus Magnesium Total Bilirubin AST ALT Alkaline Phosphatase Total Protein Albumin COVID-19 ([place]) Not detected 01/15/20 01/15/20 01/16/20 18:19 21:05 06:10 WBC 9.2 RBC 3.52 L Hgb 11.3 Hct 34.6 MCV 98.2 H MCH 32.2 MCHC 32.8 RDW 20.8 H Plt Count 367 D MPV 9.2 Absolute Neuts (auto) 7.2 Total Counted Neutrophils % 78.4 Neutrophils % (Manual) Band Neutrophils % Lymphocytes % 11.8 Lymphocytes % (Manual) Monocytes % 8.4 Monocytes % (Manual) Eosinophils % 1.0 D Eosinophils % (Manual) Basophils % 0.4 Basophils % (Manual) Nucleated RBC % 0 Metamyelocytes Hypochromia Platelet Estimate Platelet Comment Anisocytosis Macrocytosis Sodium Potassium Chloride Carbon Dioxide Anion Gap BUN Creatinine Est GFR (CKD-EPI)AfAm Est GFR (CKD-EPI)NonAf POC Glucometer 150 164 Random Glucose Calcium Phosphorus Magnesium Total Bilirubin AST ALT Alkaline Phosphatase Total Protein Albumin COVID-19 ([place]) 01/16/20 01/16/20 06:10 12:11 WBC RBC Hgb Hct MCV MCH MCHC RDW Plt Count MPV Absolute Neuts (auto) Total Counted Neutrophils % Neutrophils % (Manual) Band Neutrophils % Lymphocytes % Lymphocytes % (Manual) Monocytes % Monocytes % (Manual) Eosinophils % Eosinophils % (Manual) Basophils % Basophils % (Manual) Nucleated RBC % Metamyelocytes Hypochromia Platelet Estimate Platelet Comment Anisocytosis Macrocytosis Sodium 145 Potassium 3.4 L Chloride 110 H Carbon Dioxide 24 Anion Gap 11 BUN 28.0 H Creatinine 3.1 H Est GFR (CKD-EPI)AfAm 16.14 Est GFR (CKD-EPI)NonAf 13.92 POC Glucometer 70 Random Glucose 136 H Calcium 7.8 L Phosphorus 2.7 Magnesium 1.9 Total Bilirubin 0.6 AST 85 H ALT 56 Alkaline Phosphatase 125 H Total Protein 6.0 L Albumin 1.7 L COVID-19 ([place]) S1 S2 RRR Lungs decreased Abd- soft, NT No edema awake, not responding to questions A/P Acute right temporoparietal infarct previous CVA ESRD on HD aspiration pneumonia --- mainlining airway on Nasal canula -- NG feeding -- on iv antibiotics -- poor prognosis --- continue with meds Problem List - Problems (1) Altered mental status Code(s): R41.82 - ALTERED MENTAL STATUS, UNSPECIFIED (2) Lactic acidosis Code(s): E87.2 - ACIDOSIS (3) Pneumonia, aspiration Code(s): J69.0 - PNEUMONITIS DUE TO INHALATION OF FOOD AND VOMIT (4) Stroke Code(s): I63.9 - CEREBRAL INFARCTION, UNSPECIFIED (5) ESRD on dialysis Code(s): N18.6 - END STAGE RENAL DISEASE; Z99.2 - DEPENDENCE ON RENAL DIALYSIS (6) Hypertension Code(s): I10 - ESSENTIAL (PRIMARY) HYPERTENSION
--- NOTE | 2020-01-16 14:04 | PN ---
Progress Note (short form) - Note Progress Note: RENAL pt is unresponsive, but comfortable Last Vital Signs Temp Pulse Resp BP Pulse Ox 98.0 F 95 H 26 H 131/76 100 01/16/20 10:00 01/16/20 10:00 01/16/20 10:00 01/16/20 10:00 01/15/20 01:38 lungs clear cvs s1s2 rr abd soft ext no edema neuro unresponsive CBC, BMP 01/16/20 06:10 01/16/20 06:10 Current Medications Generic Name Dose Route Start Last Admin Trade Name Freq PRN Reason Stop Dose Admin Atorvastatin Calcium 40 mg 01/15/20 22:00 01/15/20 21:15 Lipitor - PO 40 mg HS JOSE Administration Clopidogrel Bisulfate 75 mg 01/15/20 10:00 01/16/20 09:49 Plavix - PO 75 mg DAILY [facility] Administration Sodium Chloride 250 mls @ 3,000 mls/hr 01/14/20 22:28 Normal Saline - IV 01/15/20 22:28 PRN PRN Hypotension during Dialysis Sodium Chloride 1,000 mls @ 150 mls/hr 01/15/20 13:39 01/15/20 18:39 Normal Saline - IV 150 mls/hr ASDIR [facility] Administration Piperacillin Sod/Tazobactam 50 mls @ 100 mls/hr 01/15/20 18:45 01/16/20 09:49 Sod 2.25 gm/ Dextrose IVPB 100 mls/hr Q8H-IV [facility] Administration Protocol Insulin Aspart 1 vial 01/15/20 07:00 01/16/20 12:15 Novolog Vial Sliding Scale - SQ Not Given ACHS [facility] Protocol IMPRESSION esrd htn s/p cva x 2 hypokalemia PLAN will dialyze tomorrow await covid test report feed continue other managment MV
[2020-01-16] MEDS ORDERED: SODIUM CHLORIDE 250 ML IV PRN (14:05)
--- NOTE | 2020-01-16 14:14 | PN ---
Physical Exam: SUBJECTIVE: Patient was seen and evaluated, on 3L nasal canula satting 98%, and responded only to sternal rub. No acute events overnight. Patient had an NG tube placed. Had 500cc removed during HD yesterday. OBJECTIVE: Vital Signs Period Temp Pulse Resp BP Sys/Ramirez Pulse Ox Last 24 Hr 97.9 F-98.7 F 15-103 15-26 93-133/61-93 General: responsive only to sternal rub, cachectic, on 4L nasal canula Head: nontraumatic, normocephalic Eyes: pinpoint pupils, mildly reactive to light Heart: S1, S2, RRR, mild systolic murmur Lungs: CTAB Abdomen: deflated/shrunken, decreased BS Extremities: cold to touch, cachectic, dry, decreased cap refill Laboratory Results - last 24 hr 01/15/20 01/15/20 01/15/20 00:30 08:40 18:19 WBC 17.1 H RBC Hgb Hct MCV MCH MCHC RDW Plt Count MPV Absolute Neuts (auto) Total Counted 100 Neutrophils % Neutrophils % (Manual) 79.0 Band Neutrophils % 2.0 Lymphocytes % Lymphocytes % (Manual) 13.0 Monocytes % Monocytes % (Manual) 4 Eosinophils % Eosinophils % (Manual) 0.0 Basophils % Basophils % (Manual) 1.0 Nucleated RBC % 0 Metamyelocytes 1 Hypochromia 1+ Platelet Estimate Adequate Platelet Comment Large platelets Anisocytosis 1+ Macrocytosis 1+ Sodium Potassium Chloride Carbon Dioxide Anion Gap BUN Creatinine Est GFR (CKD-EPI)AfAm Est GFR (CKD-EPI)NonAf POC Glucometer 150 Random Glucose Calcium Phosphorus Magnesium Total Bilirubin AST ALT Alkaline Phosphatase Total Protein Albumin COVID-19 ([facility]) Not detected 01/15/20 01/16/20 01/16/20 21:05 06:10 06:10 WBC 9.2 RBC 3.52 L Hgb 11.3 Hct 34.6 MCV 98.2 H MCH 32.2 MCHC 32.8 RDW 20.8 H Plt Count 367 D MPV 9.2 Absolute Neuts (auto) 7.2 Total Counted Neutrophils % 78.4 Neutrophils % (Manual) Band Neutrophils % Lymphocytes % 11.8 Lymphocytes % (Manual) Monocytes % 8.4 Monocytes % (Manual) Eosinophils % 1.0 D Eosinophils % (Manual) Basophils % 0.4 Basophils % (Manual) Nucleated RBC % 0 Metamyelocytes Hypochromia Platelet Estimate Platelet Comment Anisocytosis Macrocytosis Sodium 145 Potassium 3.4 L Chloride 110 H Carbon Dioxide 24 Anion Gap 11 BUN 28.0 H Creatinine 3.1 H Est GFR (CKD-EPI)AfAm 16.14 Est GFR (CKD-EPI)NonAf 13.92 POC Glucometer 164 Random Glucose 136 H Calcium 7.8 L Phosphorus 2.7 Magnesium 1.9 Total Bilirubin 0.6 AST 85 H ALT 56 Alkaline Phosphatase 125 H Total Protein 6.0 L Albumin 1.7 L COVID-19 ([facility]) 01/16/20 12:11 WBC RBC Hgb Hct MCV MCH MCHC RDW Plt Count MPV Absolute Neuts (auto) Total Counted Neutrophils % Neutrophils % (Manual) Band Neutrophils % Lymphocytes % Lymphocytes % (Manual) Monocytes % Monocytes % (Manual) Eosinophils % Eosinophils % (Manual) Basophils % Basophils % (Manual) Nucleated RBC % Metamyelocytes Hypochromia Platelet Estimate Platelet Comment Anisocytosis Macrocytosis Sodium Potassium Chloride Carbon Dioxide Anion Gap BUN Creatinine Est GFR (CKD-EPI)AfAm Est GFR (CKD-EPI)NonAf POC Glucometer 70 Random Glucose Calcium Phosphorus Magnesium Total Bilirubin AST ALT Alkaline Phosphatase Total Protein Albumin COVID-19 ([facility]) Active Medications Generic Name Dose Route Start Last Admin Trade Name Freq PRN Reason Stop Dose Admin Atorvastatin Calcium 40 mg 01/15/20 22:00 01/15/20 21:15 Lipitor - PO 40 mg HS JOSE Administration Clopidogrel Bisulfate 75 mg 01/15/20 10:00 01/16/20 09:49 Plavix - PO 75 mg DAILY JOSE Administration Sodium Chloride 250 mls @ 3,000 mls/hr 01/14/20 22:28 Normal Saline - IV 01/15/20 22:28 PRN PRN Hypotension during Dialysis Sodium Chloride 1,000 mls @ 150 mls/hr 01/15/20 13:39 01/15/20 18:39 Normal Saline - IV 150 mls/hr ASDIR JOSE Administration Piperacillin Sod/Tazobactam 50 mls @ 100 mls/hr 01/15/20 18:45 01/16/20 09:49 Sod 2.25 gm/ Dextrose IVPB 100 mls/hr Q8H-IV JOSE Administration Protocol Sodium Chloride 250 mls @ 3,000 mls/hr 01/16/20 14:05 Normal Saline - IV 01/17/20 14:05 PRN PRN Hypotension during Dialysis Insulin Aspart 1 vial 01/15/20 07:00 01/16/20 12:15 Novolog Vial Sliding Scale - SQ Not Given ACHS [facility] Protocol ASSESSMENT/PLAN: 74 yo F with PMHx of ESRD on HD, HTN, DM, GERD, HLD, CVA who presented from [place] due to two days of non-responsiveness. Per daughter, the patient had a stroke 3 months ago and has been aphasic and bed bound since then. ED course was remarkable for fever, leukocytosis, lactate 3.2, and head CT showing acute R temporoparietal cortical infarct and subacute L frontal cortical infarct. Patient admitted to ICU for tenuous condition. Patient has been breathing comfortably on 4L nasal canula. Received HD yesterday. Patient has been optimized for transfer to the stroke floor. #Neuro AMS likely due to stroke - continue clopidogrel - repeat head CT today #Cardio HTN (currently normotensive), HLD - continued home atorvastatin #Renal ESRD lactic acidosis - received HD yesterday (-500cc) #Endo DM2 without complications - insulin SS #ID leukocytosis - on broad spectrum abx #FEN - IVF NS - replete lytes PRN - nutrition - glucerna 10cc/h, will increase to 20cc/h tomorrow. #PPX - DVT: SCDs Visit type - Emergency Visit Emergency Visit: Yes ED Registration Date: 01/15/20 Care time: The patient presented to the Emergency Department on the above date and was hospitalized for further evaluation of their emergent condition. - New Patient This patient is new to me today: No - Critical Care Critical Care patient: Yes Total Critical Care Time (in minutes): 37 Critical Care Statement: The care of this patient involved high complexity decision making to prevent further life threatening deterioration of the patient's condition and/or to evaluate & treat vital organ system(s) failure or risk of failure. ATTENDING PHYSICIAN STATEMENT I saw and evaluated the patient. I reviewed the resident's note and discussed the case with the resident. I agree with the resident's findings and plan as documented. SUBJECTIVE: OBJECTIVE: ASSESSMENT AND PLAN:
[2020-01-16] MEDS: SODIUM CHLORIDE 1,000 ML IV SCH (14:39)
[2020-01-16] MEDS ORDERED: POTASSIUM CHLORIDE ORAL LIQUID 20 MEQ/15 ML PO ONE (14:42)
--- NOTE | 2020-01-16 14:46 | PN ---
Progress Note (short form) - Note Progress Note: 74 year old female brought patient from [place] for unreponsivness for two days prior to admission. Patient has history of stroke three months ago and has been decline since than. Sherinet has been awake two days agoa and slowly became aphasic and unreponsive. Patient has no seizure, she has high wbc and suspected to have aspiration pneumonia. Patient has large right mca cerebral edema. She is intubated and not on any sedation and no reponse to painful stimuli her nih score was 33 and she was out of window for tpa on arriaval.Patient is still unreponsive. no seizure like activity. NEUROLOGICAL EXAMINATION comatose and very minimal response to painfl stimuli neck is supple afebrile pupils is small sluggsihly reactive gag and corneal reflex is present bp is maintained ct head showed large right mca cerebral edema Assessment/Plan 1. Lare right mca acute stroke with aspiriation pneumoia ,cme with unreponsiveness, no knwn seizure ?? suffered anoxic injury, patient is intuabted and no reponse to pain or verbal stimuli Plan: prongnosis is poor - continue antiplatelet and statin -repeat ct head - eeg pending - supportive care, Abx as per Primary dvt prophylaxis, Pippa sol so much Norman Plascencia MD
[2020-01-16] MEDS: ATORVASTATIN CA 40 MG TABLET (FP) PO SCH (22:03)
[2020-01-17] MEDS: PIPERACILLIN/TAZOB 2.25 GM 2.25 GM in DEXTROSE 5%-WATER - 50 ML IVPB SCH ×3 (01:35→18:25)
[2020-01-17] MEDS: INSULIN SLIDING SCALE (NOVOLOG) 1 VIAL SQ SCH ×4 (06:20→23:07)
[2020-01-17] MEDS ORDERED: ACETAMINOPHEN 325 MG TABLET (FP) PO PRN (06:23)
--- NOTE | 2020-01-17 08:36 | PN ---
Progress Note (short form) - Note Progress Note: RENAL remains in icu not interactive but breathing spontaneously Last Vital Signs Temp Pulse Resp BP Pulse Ox 100.2 F H 114 H 16 137/78 100 01/17/20 06:00 01/17/20 06:00 01/17/20 06:00 01/17/20 06:00 01/15/20 01:38 lungs clear cvs s1s2 rr abd soft ext no edema neuro poorly responsive CBC, BMP 01/16/20 06:10 01/16/20 06:10 Current Medications Generic Name Dose Route Start Last Admin Trade Name Freq PRN Reason Stop Dose Admin Acetaminophen 650 mg 01/17/20 06:23 Tylenol - PO Q6H PRN Fever Or Pain Atorvastatin Calcium 40 mg 01/15/20 22:00 01/16/20 22:03 Lipitor - PO 40 mg HS JOSE Administration Clopidogrel Bisulfate 75 mg 01/15/20 10:00 01/16/20 09:49 Plavix - PO 75 mg DAILY JOSE Administration Sodium Chloride 1,000 mls @ 150 mls/hr 01/15/20 13:39 01/16/20 14:39 Normal Saline - IV 150 mls/hr ASDIR JOSE Administration Piperacillin Sod/Tazobactam 50 mls @ 100 mls/hr 01/15/20 18:45 01/17/20 01:35 Sod 2.25 gm/ Dextrose IVPB 100 mls/hr Q8H-IV JOSE Administration Protocol Sodium Chloride 250 mls @ 3,000 mls/hr 01/16/20 14:05 Normal Saline - IV 01/17/20 14:05 PRN PRN Hypotension during Dialysis Insulin Aspart 1 vial 01/15/20 07:00 01/17/20 06:20 Novolog Vial Sliding Scale - SQ 2 units ACHS JOSE Administration Protocol IMPRESSION esrd htn s/p cva x 2 hypokalemia covid 19 neg PLAN will dialyze today continue other managment would reduce ivf neuro follow up dialyze against a 3k bath MV
[2020-01-17 08:47] LABS: BASO % 0.2 % (0-2.0); EOS % 1.3 % (0-4.5); HEMATOCRIT 33.2 % (32.4-45.2); HEMOGLOBIN 10.5 GM/dL (10.7-15.3); LYMPH % 7.1 % (8-40); MCH 30.7 pg (25.7-33.7); MCHC 31.7 g/dl (32.0-36.0); MEAN CELL VOLUME 96.8 fl (80-96); MEAN PLT VOLUME 8.9 fl (7.5-11.1); MONO % 7.5 % (3.8-10.2); NEUT % 83.9 % (42.8-82.8); PLATELET COUNT 333 K/MM3 (134-434); RBC 3.43 M/mm3 (3.60-5.2); RDW 20.9 % (11.6-15.6); WHITE BLOOD COUNT 11.1 K/mm3 (4.0-10.0)
--- NOTE | 2020-01-17 09:06 | PN ---
Physical Exam: SUBJECTIVE: Patient was seen and evaluated, on 2L nasal canula satting 100%, and responded only to sternal rub. No acute events overnight but noted that temperature is uptrending to 100.2 max. Patient has an NG tube placed. OBJECTIVE: Vital Signs Period Temp Pulse Resp BP Sys/Ramirez Pulse Ox Last 24 Hr 97.9 F-100.2 F 83-116 14-26 113-144/59-82 General: responsive only to sternal rub, cachectic, on 2L nasal canula Head: nontraumatic, normocephalic Eyes: pinpoint pupils, mildly reactive to light Heart: S1, S2, RRR, mild systolic murmur Lungs: CTAB Abdomen: deflated/shrunken, decreased BS Extremities: feet cold to touch, cachectic, dry, decreased cap refill, hands warm to touch Laboratory Results - last 24 hr 01/15/20 01/15/20 01/15/20 00:30 14:50 14:50 WBC RBC Hgb Hct MCV MCH MCHC RDW Plt Count MPV Absolute Neuts (auto) Neutrophils % Lymphocytes % Monocytes % Eosinophils % Basophils % Nucleated RBC % POC Glucometer COVID-19 ([facility]) Not detected Hep Bs Antigen Negative Hep C Ab Diagnostic 0.1 01/16/20 01/16/20 01/16/20 12:11 18:17 21:59 WBC RBC Hgb Hct MCV MCH MCHC RDW Plt Count MPV Absolute Neuts (auto) Neutrophils % Lymphocytes % Monocytes % Eosinophils % Basophils % Nucleated RBC % POC Glucometer 70 89 77 COVID-19 ([facility]) Hep Bs Antigen Hep C Ab Diagnostic 01/17/20 01/17/20 06:05 08:30 WBC 11.1 H RBC 3.43 L Hgb 10.5 L Hct 33.2 MCV 96.8 H MCH 30.7 MCHC 31.7 L RDW 20.9 H Plt Count 333 MPV 8.9 Absolute Neuts (auto) 9.3 H Neutrophils % 83.9 H Lymphocytes % 7.1 L D Monocytes % 7.5 Eosinophils % 1.3 Basophils % 0.2 Nucleated RBC % 0 POC Glucometer 188 COVID-19 ([facility]) Hep Bs Antigen Hep C Ab Diagnostic Active Medications Generic Name Dose Route Start Last Admin Trade Name Freq PRN Reason Stop Dose Admin Acetaminophen 650 mg 01/17/20 06:23 Tylenol - PO Q6H PRN Fever Or Pain Atorvastatin Calcium 40 mg 01/15/20 22:00 01/16/20 22:03 Lipitor - PO 40 mg HS JOSE Administration Clopidogrel Bisulfate 75 mg 01/15/20 10:00 01/16/20 09:49 Plavix - PO 75 mg DAILY JOSE Administration Piperacillin Sod/Tazobactam 50 mls @ 100 mls/hr 01/15/20 18:45 01/17/20 01:35 Sod 2.25 gm/ Dextrose IVPB 100 mls/hr Q8H-IV JOSE Administration Protocol Sodium Chloride 250 mls @ 3,000 mls/hr 01/16/20 14:05 Normal Saline - IV 01/17/20 14:05 PRN PRN Hypotension during Dialysis Sodium Chloride 1,000 mls @ 50 mls/hr 01/17/20 09:02 Normal Saline - IV ASDIR JOSE Insulin Aspart 1 vial 01/15/20 07:00 01/17/20 06:20 Novolog Vial Sliding Scale - SQ 2 units ACHS JOSE Administration Protocol ASSESSMENT/PLAN: 74 yo F with PMHx of ESRD on HD, HTN, DM, GERD, HLD, CVA who presented from [place] due to two days of non-responsiveness. Per daughter, the patient had a stroke 3 months ago and has been aphasic and bed bound since then. ED course was remark able for fever, leukocytosis, lactate 3.2, and head CT showing acute R temporoparietal cortical infarct and subacute L frontal cortical infarct. Patient admitted to ICU for tenuous condition. Cardio, palliative, neuro, and neuroSurg have been consulted. Patient has been breathing comfortably on 4L nasal canula. Received HD yesterday. Repeat head CT revealed worsening edema of R infarct with midline shift to the L. Per neurology and neurosurgery no further changes in management is indicated. Patient has been optimized for transfer to the stroke floor. #Neuro AMS likely due to stroke - continue clopidogrel - repeat head CT today - showed increase size of R infarct and edema with significant mass effects and midline shift to the L (L infarct comparable to prior CT) - telephone conversation with Dr. Plascencia and Dr. Josh Ortiz: edema most likely due to recent events - sometimes may not see herniation in elderly due to baseline cerebral atrophy. In conclusion, patient is not a candidate for any interventional procedure. - per cardio rec: palliative care eval and they left a message with daughter for call back to discuss GOC #Cardio HTN (currently normotensive), HLD - continued home atorvastatin #Renal ESRD lactic acidosis - received HD 01/15/2020 (-500cc) -- repeat today against 3K bath per nephro recs #Pulm concern for aspiration pneumonia - placed on aspiration precautions - day 3 sozyn #Endo DM2 without complications - BGM ISS ACHS #ID leukocytosis - unclear etiology; possibly reactive vs aspiration pneumonia - on broad spectrum abx -- day 3 of sozyn - temperature uptrending - continue monitoring, tylenol ordered (not administered) - blood cultures NGTD #FEN - IVF NS 50 - replete lytes PRN - nutrition - increased glucerna to 20cc/h #PPX - DVT: SCDs Visit type - Emergency Visit Emergency Visit: Yes ED Registration Date: 01/15/20 Care time: The patient presented to the Emergency Department on the above date and was hospitalized for further evaluation of their emergent condition. - New Patient This patient is new to me today: No - Critical Care Critical Care patient: Yes Total Critical Care Time (in minutes): 37 Critical Care Statement: The care of this patient involved high complexity decision making to prevent further life threatening deterioration of the patient's condition and/or to evaluate & treat vital organ system(s) failure or risk of failure. ATTENDING PHYSICIAN STATEMENT I saw and evaluated the patient. I reviewed the resident's note and discussed the case with the resident. I agree with the resident's findings and plan as documented. SUBJECTIVE: OBJECTIVE: ASSESSMENT AND PLAN:
[2020-01-17 09:15] LABS: ALBUMIN 1.5 g/dl (3.4-5.0); BILIRUBIN,TOTAL 0.6 mg/dL (0.2-1); BLOOD UREA NITROGEN 35.1 mg/dL (7-18); CALCIUM 7.9 mg/dL (8.5-10.1); CREATININE 3.9 mg/dL (0.55-1.3); PHOSPHOROUS 3.2 mg/dL (2.5-4.9); POTASSIUM 4.1 mmol/L (3.5-5.1); TOT PROT 5.6 g/dl (6.4-8.2)
[2020-01-17] MEDS: CLOPIDOGREL BISULFATE 75 MG TABLET (FP) PO SCH (09:22)
[2020-01-17] MEDS: SODIUM CHLORIDE 1,000 ML IV SCH (09:22)
--- NOTE | 2020-01-17 10:57 | PN ---
Teaching Attending Note Name of Resident: Susan Butler ATTENDING PHYSICIAN STATEMENT I saw and evaluated the patient. I reviewed the resident's note and discussed the case with the resident. I agree with the resident's findings and plan as documented. SUBJECTIVE: Pt seen and examined in the ICU. Lethargic, poorly responsive. Low grade temps overnight. OBJECTIVE: Vital Signs Period Temp Pulse Resp BP Sys/Ramirez Pulse Ox Last 24 Hr 97.9 F-100.2 F 83-116 14-26 113-144/59-82 Intake & Output 01/14/20 01/15/20 01/16/20 01/17/20 23:59 23:59 23:59 23:59 Intake Total 2115 4440 1230 Output Total 0 500 Balance 0 1615 4440 1230 Weight 45.359 kg 35.068 kg 34.927 kg 39.463 kg Gen: lethargic Heart: RRR Lung: scattered rhonchi Abd: soft, nontender Ext: no edema CBC, BMP 01/17/20 08:30 01/17/20 08:30 Active Medications Acetaminophen (Tylenol -) 650 mg PO Q6H PRN PRN Reason: Fever Or Pain Atorvastatin Calcium (Lipitor -) 40 mg PO HS JOSE Last Admin: 01/16/20 22:03 Dose: 40 mg Documented by: Clopidogrel Bisulfate (Plavix -) 75 mg PO DAILY JOSE Last Admin: 01/17/20 09:22 Dose: 75 mg Documented by: Piperacillin Sod/Tazobactam (Sod 2.25 gm/ Dextrose) 50 mls @ 100 mls/hr IVPB Q8H-IV JOSE; Protocol Last Admin: 01/17/20 09:22 Dose: 100 mls/hr Documented by: Sodium Chloride (Normal Saline -) 250 mls @ 3,000 mls/hr IV PRN PRN PRN Reason: Hypotension during Dialysis Stop: 01/17/20 14:05 Sodium Chloride (Normal Saline -) 1,000 mls @ 50 mls/hr IV ASDIR JOSE Last Admin: 01/17/20 09:22 Dose: 50 mls/hr Documented by: Insulin Aspart (Novolog Vial Sliding Scale -) 1 vial SQ ACHS JOSE; Protocol Last Admin: 01/17/20 06:20 Dose: 2 units Documented by: ASSESSMENT AND PLAN: Acute CVA Pneumonia likely Aspiration ESRD on HD HTN DM Hyperlipidemia h/o CVA - continue antibiotics - aspiration precautions - O2 to keep SpO2 >90% - statin, plavix - EEG per neuro - DVT prophylaxis - poor prognosis - can monitor on telemetry
--- NOTE | 2020-01-17 11:29 | PN ---
Progress Note, Physician Chief Complaint: POORLY RESPONSIVE LOW GRADE TEMPS BREATHING NON-LABORED WBC SL ELEVATED BC NO GROWTH - Current Medication List Current Medications: Active Medications Acetaminophen (Tylenol -) 650 mg PO Q6H PRN PRN Reason: Fever Or Pain Atorvastatin Calcium (Lipitor -) 40 mg PO HS JOSE Last Admin: 01/16/20 22:03 Dose: 40 mg Documented by: Clopidogrel Bisulfate (Plavix -) 75 mg PO DAILY JOSE Last Admin: 01/17/20 09:22 Dose: 75 mg Documented by: Piperacillin Sod/Tazobactam (Sod 2.25 gm/ Dextrose) 50 mls @ 100 mls/hr IVPB Q8H-IV JOSE; Protocol Last Admin: 01/17/20 09:22 Dose: 100 mls/hr Documented by: Sodium Chloride (Normal Saline -) 250 mls @ 3,000 mls/hr IV PRN PRN PRN Reason: Hypotension during Dialysis Stop: 01/17/20 14:05 Sodium Chloride (Normal Saline -) 1,000 mls @ 50 mls/hr IV ASDIR JOSE Last Admin: 01/17/20 09:22 Dose: 50 mls/hr Documented by: Insulin Aspart (Novolog Vial Sliding Scale -) 1 vial SQ ACHS [facility]; Protocol Last Admin: 01/17/20 06:20 Dose: 2 units Documented by: - Objective Vital Signs: Vital Signs Temperature 100.0 F H 01/17/20 10:00 Pulse Rate 97 H 01/17/20 10:00 Respiratory Rate 24 H 01/17/20 10:00 Blood Pressure 132/74 01/17/20 10:00 O2 Sat by Pulse Oximetry (%) 100 01/15/20 01:38 Constitutional: Yes: No Distress, Cachectic Cardiovascular: Yes: Regular Rate and Rhythm, S1, S2 Respiratory: Yes: Mechanically Ventilated Gastrointestinal: Yes: Normal Bowel Sounds, Soft Edema: No Labs: CBC, BMP 01/17/20 08:30 01/17/20 08:30 INR, PTT INR 1.02 (0.83-1.09) 01/14/20 20:10 Assessment/Plan S/P ACUTE CVA ALTERED MENTATION PROBABLE ASP RLL PNEUMONIA ESRD FEVER/ LEUKOCYTOSIS IMPROVED OBS CONTINUE EMPIRIC ZOSYN VENTILATORY SUPPORT
--- NOTE | 2020-01-17 11:54 | PN ---
Progress Note (short form) - Note Progress Note: non verbal events noted pt examined in ICU lethargic opens eyes to painful stimuli Vital Signs - 24 hr 01/16/20 01/16/20 01/16/20 14:00 16:00 18:00 Temperature 98.2 F 98.6 F Pulse Rate 83 85 91 H Respiratory 18 16 21 H Rate Blood Pressure 133/71 139/71 131/61 01/16/20 01/16/20 01/16/20 20:00 20:37 22:00 Temperature 99.3 F Pulse Rate 103 H 112 H Respiratory 23 H 23 H 14 Rate Blood Pressure 113/59 L 125/64 01/17/20 01/17/20 01/17/20 00:00 02:00 04:00 Temperature 99.8 F H Pulse Rate 116 H 115 H 111 H Respiratory 17 14 17 Rate Blood Pressure 141/77 144/82 133/70 01/17/20 01/17/20 01/17/20 06:00 08:00 09:00 Temperature 100.2 F H Pulse Rate 114 H 109 H Respiratory 16 26 H 24 H Rate Blood Pressure 137/78 135/78 01/17/20 01/17/20 10:00 12:00 Temperature 100.0 F H Pulse Rate 97 H 108 H Respiratory 24 H 24 H Rate Blood Pressure 132/74 144/77 Current Medications Generic Name Dose Route Start Last Admin Trade Name Freq PRN Reason Stop Dose Admin Acetaminophen 650 mg 01/17/20 06:23 Tylenol - PO Q6H PRN Fever Or Pain Atorvastatin Calcium 40 mg 01/15/20 22:00 01/16/20 22:03 Lipitor - PO 40 mg HS JOSE Administration Clopidogrel Bisulfate 75 mg 01/15/20 10:00 01/17/20 09:22 Plavix - PO 75 mg DAILY JOSE Administration Piperacillin Sod/Tazobactam 50 mls @ 100 mls/hr 01/15/20 18:45 01/17/20 09:22 Sod 2.25 gm/ Dextrose IVPB 100 mls/hr Q8H-IV JOSE Administration Protocol Sodium Chloride 250 mls @ 3,000 mls/hr 01/16/20 14:05 Normal Saline - IV 01/17/20 14:05 PRN PRN Hypotension during Dialysis Sodium Chloride 1,000 mls @ 50 mls/hr 01/17/20 09:02 01/17/20 09:22 Normal Saline - IV 50 mls/hr ASDIR JOSE Administration Insulin Aspart 1 vial 01/15/20 07:00 01/17/20 06:20 Novolog Vial Sliding Scale - SQ 2 units ACHS JOSE Administration Protocol Laboratory Results - last 24 hr 01/15/20 01/15/20 01/16/20 14:50 14:50 18:17 WBC RBC Hgb Hct MCV MCH MCHC RDW Plt Count MPV Absolute Neuts (auto) Neutrophils % Lymphocytes % Monocytes % Eosinophils % Basophils % Nucleated RBC % Sodium Potassium Chloride Carbon Dioxide Anion Gap BUN Creatinine Est GFR (CKD-EPI)AfAm Est GFR (CKD-EPI)NonAf POC Glucometer 89 Random Glucose Calcium Phosphorus Magnesium Total Bilirubin AST ALT Alkaline Phosphatase Total Protein Albumin Hep Bs Antigen Negative Hep C Ab Diagnostic 0.1 01/16/20 01/17/20 01/17/20 21:59 06:05 08:30 WBC 11.1 H RBC 3.43 L Hgb 10.5 L Hct 33.2 MCV 96.8 H MCH 30.7 MCHC 31.7 L RDW 20.9 H Plt Count 333 MPV 8.9 Absolute Neuts (auto) 9.3 H Neutrophils % 83.9 H Lymphocytes % 7.1 L D Monocytes % 7.5 Eosinophils % 1.3 Basophils % 0.2 Nucleated RBC % 0 Sodium Potassium Chloride Carbon Dioxide Anion Gap BUN Creatinine Est GFR (CKD-EPI)AfAm Est GFR (CKD-EPI)NonAf POC Glucometer 77 188 Random Glucose Calcium Phosphorus Magnesium Total Bilirubin AST ALT Alkaline Phosphatase Total Protein Albumin Hep Bs Antigen Hep C Ab Diagnostic 01/17/20 08:30 WBC RBC Hgb Hct MCV MCH MCHC RDW Plt Count MPV Absolute Neuts (auto) Neutrophils % Lymphocytes % Monocytes % Eosinophils % Basophils % Nucleated RBC % Sodium 146 H Potassium 4.1 Chloride 116 H Carbon Dioxide 23 Anion Gap 7 L BUN 35.1 H Creatinine 3.9 H Est GFR (CKD-EPI)AfAm 12.23 Est GFR (CKD-EPI)NonAf 10.55 POC Glucometer Random Glucose 196 H Calcium 7.9 L Phosphorus 3.2 Magnesium 2.0 Total Bilirubin 0.6 AST 78 H ALT 45 Alkaline Phosphatase 149 H Total Protein 5.6 L Albumin 1.5 L Hep Bs Antigen Hep C Ab Diagnostic S1 S2 RRR Lungs decreased Abd- soft, NT No edema awake, not responding to questions A/P Acute right temporoparietal infarct previous CVA ESRD on HD aspiration pneumonia --- maintaining airway on Nasal canula -- NG feeding -- CT head repeat shows worsening edema, infarct -- on iv antibiotics -- poor prognosis --- continue with meds -- palliative care eval -- left a message with daughter for call back -- need to discuss GOC Problem List - Problems (1) Altered mental status Code(s): R41.82 - ALTERED MENTAL STATUS, UNSPECIFIED (2) Lactic acidosis Code(s): E87.2 - ACIDOSIS (3) Pneumonia, aspiration Code(s): J69.0 - PNEUMONITIS DUE TO INHALATION OF FOOD AND VOMIT (4) Stroke Code(s): I63.9 - CEREBRAL INFARCTION, UNSPECIFIED (5) ESRD on dialysis Code(s): N18.6 - END STAGE RENAL DISEASE; Z99.2 - DEPENDENCE ON RENAL DIALYSIS (6) Hypertension Code(s): I10 - ESSENTIAL (PRIMARY) HYPERTENSION
--- NOTE | 2020-01-17 14:37 | PN ---
Progress Note (short form) - Note Progress Note: NEUROSURGERY CONSULT DICTATED Chart reviewed Pt examined CT scan reviewed No history available from pt [facility] resident with HTN, HLD, stroke w/ baseline aphasia, pressure ulcer, ESRD on HD brought in for unresponsiveness of two days [employer]. Sstroke three months ago and has continued to decline. Awake previously and became aphasic and unresponsive at that time. No witnessed seizure, and suspected to have aspiration pneumonia. Patient has large right MCA infarct with shift. PE: HEENT- NC/AT; neck- supple; Cor- RR; Lungs- decreased BS at bases; Abd- benign; Ext- no obvious signs of DVT Eyes open to pain; not following commands CN- L facial droop; Motor- slight withdrawing to pain R UE; Sensation- difficult to assess; DTR- 1+, b toes downgoing WCB 11.1 (down); Hgb 10.5; Cr 3.9, BUN 35.[address] (2011): mild periventricular small vessel dz; no stroke or HCP Head CT (01-14-2020): R posterior/lateral fronto-parietal ischemic stroke. L frontal convexity stroke; moderate to marked periventricular small vessel dz Head CT (01-17-2020): Large R MCA well demarcated infarct with mass effect Acute large R MCA and chronic L MCA stroke Prognosis extremely poor given poor neurological condition, large size of MCA stroke, underlying medical conditions including ESRD and prior MCA stroke Neurosurgical intervention not recommended D/w ICU team
--- NOTE | 2020-01-17 22:54 | PN ---
Progress Note (short form) - Note Progress Note: 4 year old female brought patient from [place] for unreponsivness for two days prior to admission. Patient has history of stroke three months ago and has been decline since than. Patinet has been awake two days agoa and slowly became aphasic and unreponsive. Patient has no seizure, she has high wbc and suspected to have aspiration pneumonia. Patient has large right mca cerebral edema. She is intubated and not on any sedation and no reponse to painful stimuli her nih score was 33 and she was out of window for tpa on arriaval.Patient is still unreponsive. no seizure like activity. repeat ct head showed there is interval change with midline shift due to cerebral edema on right side NEUROLOGICAL EXAMINATION comatose and very minimal response to painfl stimuli neck is supple afebrile pupils is small sluggsihly reactive gag and corneal reflex is present bp is maintained ct head showed large right mca cerebral edema repeat ct head on january 16 showed interval change Assessment/Plan 1. Lare right mca acute stroke with aspiriation pneumoia ,came with unreponsiveness, patient has old left mca stroke now she has bihemispheric stroke with minimal reponsivness Plan: prongnosis is poor - neurosurgery consult appreciated - continue antiplatelet and statin - supportive care, Abx as per Primary dvt prophylaxis, 35 minute cc time Pippa sol so much Norman Plascencia MD
[2020-01-17] MEDS: ATORVASTATIN CA 40 MG TABLET (FP) PO SCH (23:06)
[2020-01-18] MEDS ORDERED: DEXTROSE 5%-WATER - 50 ML IVPB ONE ×3 (01:13→16:49)
[2020-01-18] MEDS ORDERED: PIPERACILLIN/TAZOBACTAM 2.25 GM VIAL IVPB ONE ×3 (01:13→16:49)
[2020-01-18] MEDS: PIPERACILLIN/TAZOB 2.25 GM 2.25 GM in DEXTROSE 5%-WATER - 50 ML IVPB SCH ×3 (01:18→17:17)
[2020-01-18] MEDS: INSULIN SLIDING SCALE (NOVOLOG) 1 VIAL SQ SCH ×5 (02:30→22:19)
[2020-01-18 07:23] LABS: BASO % 0.3 % (0-2.0); EOS % 1.7 % (0-4.5); HEMATOCRIT 31.2 % (32.4-45.2); LYMPH % 8.3 % (8-40); MCH 31.2 pg (25.7-33.7); MCHC 32.1 g/dl (32.0-36.0); MEAN CELL VOLUME 97.2 fl (80-96); MEAN PLT VOLUME 9.2 fl (7.5-11.1); MONO % 7.1 % (3.8-10.2); NEUT % 82.6 % (42.8-82.8); PLATELET COUNT 326 K/MM3 (134-434); RBC 3.21 M/mm3 (3.60-5.2); RDW 20.9 % (11.6-15.6); WHITE BLOOD COUNT 12.7 K/mm3 (4.0-10.0)
[2020-01-18 07:42] LABS: ALBUMIN 1.2 g/dl (3.4-5.0); BILIRUBIN,TOTAL 0.4 mg/dL (0.2-1); BLOOD UREA NITROGEN 33.7 mg/dL (7-18); CREATININE 3.7 mg/dL (0.55-1.3); MAGNESIUM 1.6 mg/dL (1.8-2.4); PHOSPHOROUS 2.5 mg/dL (2.5-4.9); POTASSIUM 3.2 mmol/L (3.5-5.1); TOT PROT 4.5 g/dl (6.4-8.2)
[2020-01-18 07:55] LABS: CALCIUM 6.6 mg/dL (8.5-10.1)
--- NOTE | 2020-01-18 08:56 | PN ---
Progress Note (short form) - Note Progress Note: NEUROSURGERY In telemetry [facility] resident with HTN, HLD, stroke w/ baseline aphasia, pressure ulcer, ESRD on HD brought in for unresponsiveness of two days [employer]. Sstroke three months ago and has continued to decline. Awake previously and became aphasic and unresponsive at that time. No witnessed seizure, and suspected to have aspiration pneumonia. Patient has large right MCA infarct with shift. PE: Tmax 100, VSS HEENT- NC/AT; neck- supple; Cor- RR; Lungs- decreased BS at bases; Abd- benign; Ext- no obvious signs of DVT Eyes closed; not following commands CN- L facial droop; Motor- minimal flexing/withdrawing to pain R UE; Sensation- difficult to assess; DTR- B toes downgoing head CT (2014): mild periventricular small vessel dz; no bleed, stroke or HCP Head CT (01-14-2020): R posterior/lateral fronto-parietal ischemic stroke. L frontal convexity stroke; moderate to marked periventricular small vessel dz Head CT (01-17-2020): Large R MCA well demarcated infarct with mass effect Acute large R MCA and chronic L MCA stroke Prognosis extremely poor given poor neurological condition, large size of R MCA stroke, underlying medical conditions including ESRD and prior L MCA stroke Neurosurgical intervention not recommended
[2020-01-18 08:57] LABS: ANISOCYTOSIS 1+; MACROCYTOSIS 0; PLATELET ESTIMATE NORMAL
[2020-01-18] MEDS: SODIUM CHLORIDE 1,000 ML IV SCH ×2 (09:39→22:07)
[2020-01-18] MEDS: CLOPIDOGREL BISULFATE 75 MG TABLET (FP) PO SCH (09:39)
--- NOTE | 2020-01-18 11:16 | PN ---
Progress Note (short form) - Note Progress Note: RENAL pt is being monitored in telemetry Has been found to have a large mca stroke with some deviation but neurosurgery declines intervention Last Vital Signs Temp Pulse Resp BP Pulse Ox 99.8 F H 116 H 21 H 160/93 100 01/18/20 09:28 01/18/20 09:28 01/18/20 09:28 01/18/20 09:28 01/18/20 09:28 lungs clear cvs s1s2 rr abd soft ext no edema neuro unresponsive CBC, BMP 01/18/20 06:10 01/18/20 06:10 Current Medications Generic Name Dose Route Start Last Admin Trade Name Freq PRN Reason Stop Dose Admin Acetaminophen 650 mg 01/17/20 06:23 Tylenol - PO Q6H PRN Fever Or Pain Atorvastatin Calcium 40 mg 01/15/20 22:00 01/17/20 23:06 Lipitor - PO 40 mg HS JOSE Administration Clopidogrel Bisulfate 75 mg 01/18/20 10:00 01/18/20 09:39 Plavix - PO 75 mg DAILY JOSE Administration Piperacillin Sod/Tazobactam 50 mls @ 100 mls/hr 01/15/20 18:45 01/18/20 09:40 Sod 2.25 gm/ Dextrose IVPB 100 mls/hr Q8H-IV JOSE Administration Protocol Sodium Chloride 250 mls @ 3,000 mls/hr 01/16/20 14:05 Normal Saline - IV 01/17/20 14:05 PRN PRN Hypotension during Dialysis Sodium Chloride 1,000 mls @ 50 mls/hr 01/17/20 09:02 01/18/20 09:39 Normal Saline - IV Not Given ASDIR JOSE Insulin Aspart 1 vial 01/17/20 22:15 01/18/20 06:10 Novolog Vial Sliding Scale - SQ Not Given ACHS JOSE Protocol IMPRESSION esrd htn s/p cva x 2 hypokalemia covid 19 neg PLAN will dialyze tomorrow continue other managment would reduce ivf neuro follow up dialyze against a 3k bath GOC- holding dialysis at this point maybe the best option MV
--- NOTE | 2020-01-18 12:33 | PN ---
Progress Note (short form) - Note Progress Note: non verbal events noted lethargic opens eyes to painful stimuli Vital Signs - 24 hr 01/17/20 01/17/20 01/17/20 14:00 16:00 18:00 Temperature 99.8 F H Pulse Rate 96 H 111 H 95 H Respiratory 23 H 22 H 23 H Rate Blood Pressure 137/76 156/80 142/76 O2 Sat by Pulse Oximetry (%) 01/17/20 01/17/20 01/18/20 21:00 22:00 01:30 Temperature 97.7 F 98.3 F Pulse Rate 108 H 107 H Respiratory 24 H 20 24 H Rate Blood Pressure 138/84 131/73 O2 Sat by Pulse 96 96 Oximetry (%) 01/18/20 01/18/20 01/18/20 05:00 09:00 09:28 Temperature 98.3 F 99.8 F H Pulse Rate 101 H 116 H Respiratory 24 H 21 H Rate Blood Pressure 129/68 160/93 O2 Sat by Pulse 100 100 Oximetry (%) 01/18/20 12:09 Temperature 100.1 F H Pulse Rate 113 H Respiratory 20 Rate Blood Pressure 137/83 O2 Sat by Pulse 96 Oximetry (%) Current Medications Generic Name Dose Route Start Last Admin Trade Name Freq PRN Reason Stop Dose Admin Acetaminophen 650 mg 01/17/20 06:23 Tylenol - PO Q6H PRN Fever Or Pain Atorvastatin Calcium 40 mg 01/15/20 22:00 01/17/20 23:06 Lipitor - PO 40 mg HS JOSE Administration Clopidogrel Bisulfate 75 mg 01/18/20 10:00 01/18/20 09:39 Plavix - PO 75 mg DAILY JOSE Administration Piperacillin Sod/Tazobactam 50 mls @ 100 mls/hr 01/15/20 18:45 01/18/20 09:40 Sod 2.25 gm/ Dextrose IVPB 100 mls/hr Q8H-IV JOSE Administration Protocol Sodium Chloride 1,000 mls @ 50 mls/hr 01/17/20 09:02 01/18/20 09:39 Normal Saline - IV Not Given ASDIR JOSE Sodium Chloride 250 mls @ 3,000 mls/hr 01/18/20 11:16 Normal Saline - IV 01/19/20 11:16 PRN PRN Hypotension during Dialysis Insulin Aspart 1 vial 01/17/20 22:15 01/18/20 12:02 Novolog Vial Sliding Scale - SQ 3 units ACHS JOSE Administration Protocol Laboratory Results - last 24 hr 01/17/20 01/17/20 01/17/20 13:36 18:28 23:05 WBC RBC Hgb Hct MCV MCH MCHC RDW Plt Count MPV Absolute Neuts (auto) Neutrophils % Lymphocytes % Monocytes % Eosinophils % Basophils % Nucleated RBC % Hypochromia Platelet Estimate Polychromasia Poikilocytosis Anisocytosis Microcytosis Macrocytosis [place] Cells Sodium Potassium Chloride Carbon Dioxide Anion Gap BUN Creatinine Est GFR (CKD-EPI)AfAm Est GFR (CKD-EPI)NonAf POC Glucometer 86 152 154 Random Glucose Calcium Phosphorus Magnesium Total Bilirubin AST ALT Alkaline Phosphatase Total Protein Albumin 01/18/20 01/18/20 01/18/20 05:26 06:10 06:10 WBC 12.7 H RBC 3.21 L Hgb 10.0 L Hct 31.2 L MCV 97.2 H MCH 31.2 MCHC 32.1 RDW 20.9 H Plt Count 326 MPV 9.2 Absolute Neuts (auto) 10.5 H Neutrophils % 82.6 Lymphocytes % 8.3 Monocytes % 7.1 Eosinophils % 1.7 Basophils % 0.3 Nucleated RBC % 0 Hypochromia 0 Platelet Estimate Normal Polychromasia 1+ Poikilocytosis 1+ Anisocytosis 1+ Microcytosis 1+ Macrocytosis 0 [place] Cells 1+ Sodium 151 H Potassium 3.2 L Chloride 123 H Carbon Dioxide 19 L Anion Gap 9 BUN 33.7 H Creatinine 3.7 H Est GFR (CKD-EPI)AfAm 13.03 Est GFR (CKD-EPI)NonAf 11.24 POC Glucometer 81 Random Glucose 119 H Calcium 6.6 L* Phosphorus 2.5 Magnesium 1.6 L Total Bilirubin 0.4 AST 56 H ALT 32 Alkaline Phosphatase 146 H Total Protein 4.5 L Albumin 1.2 L S1 S2 RRR Lungs decreased Abd- soft, NT No edema awake, not responding to questions A/P Acute right temporoparietal infarct previous CVA ESRD on HD aspiration pneumonia --- maintaining airway on Nasal canula -- NG feeding -- CT head repeat shows worsening edema, infarct -- on iv antibiotics -- poor prognosis --- continue with meds -- palliative care eval -- chance of meaningful recovery is poor Problem List - Problems (1) Altered mental status Code(s): R41.82 - ALTERED MENTAL STATUS, UNSPECIFIED (2) Lactic acidosis Code(s): E87.2 - ACIDOSIS (3) Pneumonia, aspiration Code(s): J69.0 - PNEUMONITIS DUE TO INHALATION OF FOOD AND VOMIT (4) Stroke Code(s): I63.9 - CEREBRAL INFARCTION, UNSPECIFIED (5) ESRD on dialysis Code(s): N18.6 - END STAGE RENAL DISEASE; Z99.2 - DEPENDENCE ON RENAL DIALYSIS (6) Hypertension Code(s): I10 - ESSENTIAL (PRIMARY) HYPERTENSION
--- NOTE | 2020-01-18 13:08 | PN ---
Progress Note (short form) - Note Progress Note: PULMONARY Lethargic, poorly responsive. Vital Signs Period Temp Pulse Resp BP Sys/Ramirez Pulse Ox Last 24 Hr 97.7 F-100.1 F 95-116 20-24 129-160/68-93 96-100 Gen: lethargic Heart: RRR Lung: decreased breath sounds at the bases Abd: soft, nontender Ext: no edema CBC, BMP 01/18/20 06:10 01/18/20 06:10 Active Medications Acetaminophen (Tylenol -) 650 mg PO Q6H PRN PRN Reason: Fever Or Pain Atorvastatin Calcium (Lipitor -) 40 mg PO HS JOSE Last Admin: 01/17/20 23:06 Dose: 40 mg Documented by: Clopidogrel Bisulfate (Plavix -) 75 mg PO DAILY JOSE Last Admin: 01/18/20 09:39 Dose: 75 mg Documented by: Piperacillin Sod/Tazobactam (Sod 2.25 gm/ Dextrose) 50 mls @ 100 mls/hr IVPB Q8H-IV JOSE; Protocol Last Admin: 01/18/20 09:40 Dose: 100 mls/hr Documented by: Sodium Chloride (Normal Saline -) 1,000 mls @ 50 mls/hr IV ASDIR JOSE Last Admin: 01/18/20 09:39 Dose: Not Given Documented by: Sodium Chloride (Normal Saline -) 250 mls @ 3,000 mls/hr IV PRN PRN PRN Reason: Hypotension during Dialysis Stop: 01/19/20 11:16 Insulin Aspart (Novolog Vial Sliding Scale -) 1 vial SQ ACHS JOSE; Protocol Last Admin: 01/18/20 12:02 Dose: 3 units Documented by: A/P Acute CVA Pneumonia likely Aspiration ESRD on HD HTN DM Hyperlipidemia h/o CVA - continue antibiotics - aspiration precautions - O2 to keep SpO2 >90% - statin, plavix - EEG per neuro - DVT prophylaxis - poor prognosis
--- NOTE | 2020-01-18 14:03 | PN ---
Progress Note (short form) - Note Progress Note: 74 year old female brought patient from [place] for unreponsivness for two days prior to admission. Patient has history of stroke three months ago and has been decline since than. Sherinet has been awake two days agoa and slowly became aphasic and unreponsive. Patient has no seizure, she has high wbc and suspected to have aspiration pneumonia. Patient has large right mca cerebral edema. She is intubated and not on any sedation and no reponse to painful stimuli her nih score was 33 and she was out of window for tpa on arriaval.Patient is still unreponsive. no seizure like activity. repeat ct head showed there is interval change with midline shift due to cerebral edema on right side patient transferred to floor, DNR and palliative care has been consulted chart reviewed and spoke to nursing staff. NEUROLOGICAL EXAMINATION comatose and very minimal response to painfl stimuli neck is supple afebrile pupils is small sluggsihly reactive gag and corneal reflex is present bp is maintained ct head showed large right mca cerebral edema repeat ct head on january 16 showed interval change Assessment/Plan 1. Lare right mca acute stroke with aspiriation pneumoia ,came with unreponsiveness, patient has old left mca stroke now she has bihemispheric stroke with minimal reponsivness Plan: prongnosis is poor - neurosurgery consult appreciated - continue antiplatelet and statin - abx for aspiration pneumonia dvt prophylaxis, Pippa sol so much Norman Plascencia MD
--- NOTE | 2020-01-18 16:20 | PN ---
Progress Note, Physician Chief Complaint: POORLY RESPONSIVE LOW GRADE TEMPS BREATHING NON-LABORED WBC SL ELEVATED BC NO GROWTH - Current Medication List Current Medications: Active Medications Acetaminophen (Tylenol -) 650 mg PO Q6H PRN PRN Reason: Fever Or Pain Atorvastatin Calcium (Lipitor -) 40 mg PO HS JOSE Last Admin: 01/17/20 23:06 Dose: 40 mg Documented by: Clopidogrel Bisulfate (Plavix -) 75 mg PO DAILY JOSE Last Admin: 01/18/20 09:39 Dose: 75 mg Documented by: Piperacillin Sod/Tazobactam (Sod 2.25 gm/ Dextrose) 50 mls @ 100 mls/hr IVPB Q8H-IV JOSE; Protocol Last Admin: 01/18/20 09:40 Dose: 100 mls/hr Documented by: Sodium Chloride (Normal Saline -) 1,000 mls @ 50 mls/hr IV ASDIR JOSE Last Admin: 01/18/20 09:39 Dose: Not Given Documented by: Sodium Chloride (Normal Saline -) 250 mls @ 3,000 mls/hr IV PRN PRN PRN Reason: Hypotension during Dialysis Stop: 01/19/20 11:16 Insulin Aspart (Novolog Vial Sliding Scale -) 1 vial SQ ACHS [facility]; Protocol Last Admin: 01/18/20 12:02 Dose: 3 units Documented by: - Objective Vital Signs: Vital Signs Temperature 99.9 F H 01/18/20 14:07 Pulse Rate 112 H 01/18/20 14:07 Respiratory Rate 16 01/18/20 14:07 Blood Pressure 120/66 01/18/20 14:07 O2 Sat by Pulse Oximetry (%) 96 01/18/20 12:09 Constitutional: Yes: No Distress, Cachectic Cardiovascular: Yes: Regular Rate and Rhythm, S1, S2 Respiratory: Yes: CTA Bilaterally, Diminished Gastrointestinal: Yes: Normal Bowel Sounds, Soft. No: Tenderness Edema: No Labs: CBC, BMP 01/18/20 06:10 01/18/20 06:10 INR, PTT INR 1.02 (0.83-1.09) 01/14/20 20:10 Assessment/Plan S/P ACUTE CVA ALTERED MENTATION PROBABLE ASP RLL PNEUMONIA ESRD FEVER/ LEUKOCYTOSIS OBS CONTINUE EMPIRIC ZOSYN VENTILATORY SUPPORT
--- NOTE | 2020-01-18 16:59 | CONS ---
DATE OF CONSULTATION: DATE OF DICTATION: 01/17/2020 REQUESTING PHYSICIAN: Dr. Susan Butler CHIEF COMPLAINT: Large right MCA ischemic stroke. HISTORY OF PRESENT ILLNESS: The patient is a 74-year-old female with history of hypertension, hypercholesterolemia, prior stroke with baseline aphasia, pressure ulcer, and end-stage renal disease on hemodialysis, was [facility] in from [facility] because of unresponsiveness approximately 2 days prior to admission. Her admission to [facility] started approximately 48 hours earlier. She did suffer a stroke 3 months ago and has some baseline speech difficulties, and her neurological status has continued to decline by report. She, however, was awake and became unresponsive a couple days ago. There were no witnessed seizures. She was also suspected of having an aspiration pneumonia. No history was available from the patient. PAST MEDICAL HISTORY: Significant for hypertension, stroke, hypercholesterolemia, end-stage renal disease on hemodialysis. MEDICATIONS: Include Zosyn, Lipitor, insulin, Plavix. ALLERGIES: PROPOFOL. SOCIAL HISTORY: She is a [facility] resident. She is retired. REVIEW OF SYSTEMS: Otherwise negative for major constitutional, head, neck, cardiovascular, pulmonary, gastrointestinal, genitourinary, endocrinologic, neurological, psychological problems except for the above. She has no history of being COVID positive by report. PHYSICAL EXAMINATION: Vital Signs: Maximum temperature 100. Most recent temperature is 99.8. Blood pressure is 137/76 with pulse rate 96. O2 saturation is 98%. HEENT: Examination shows her to be normocephalic, atraumatic, anicteric. Neck: Supple, with no carotid bruit. Coronary: Examination demonstrated regular rhythm but tachycardic. Lungs: Show decreased breath sounds at the bases. Abdomen: Benign. Extremities: Examination shows no obvious signs of DVT. Neurologic: The patient is obtunded. She does not follow commands. She does not verbalize. She does not open her eyes to voice or pain. Cranial nerve examination shows left facial droop. Motor examination shows the right upper extremity to withdraw or flex slightly to pain. Sensory examination is unable to test. Deep tendon reflexes are 1+ throughout. Bilateral toes are downgoing. LABORATORY: Examination shows a white blood cell count 11.1, previously was 17.7. Hemoglobin is 10.5 and platelet count is 333,000. INR is 1.02. Serum sodium is 146 and potassium is 4.1. BUN is 35.1 and creatinine 3.9. Calcium is 7.9. COVID serology was negative. Blood cultures were negative. IMAGING: CT scan of the head initially done on January 13 at approximately 8 p.m. showed a chronic left frontal infarct, likely from her reported stroke 3 months ago. There is a large right temporoparietal cortical infarct noted. There is no midline shift. There is periventricular small vessel disease. This is compared to a prior CT scan from 2014 which demonstrated mild periventricular small vessel disease. There was no hydrocephalus or large territory infarct noted at that time. A followup CT scan from January 16 demonstrated a well-demarcated right MCA stroke of the entire MCA distribution. There is mass effect on the lateral ventricle as well as midline with right to left shift of about 9 mm. The prior lateral frontal convexity stroke is once again noted. IMPRESSION: 1. Acute right middle cerebral artery and chronic left middle cerebral artery infarct. 2. Hypertension. 3. End-stage renal disease on hemodialysis. RECOMMENDATION: The patient presented with neurological deterioration for approximately 48 hours prior to admission. She had a well-defined right MCA infarct at the time of her admission which has further extended to the entire MCA distribution. There is mass effect and midline shift. Because of her very poor baseline neurological function, prior stroke, and her age, she is not likely to make a functional recovery given the extent of the infarct. No neurosurgical intervention is recommended at this time because of the above. Further management by the medical team and neurologist is recommended. Her blood pressure should be maintained, and nutritional support should be considered. The patient is also being treated for presumptive aspiration pneumonia, which is a further complicating issue. The above was discussed with the ICU team, including attending. DENIA NOLEN M.D. [id number] MTDEne
[2020-01-18] MEDS: ATORVASTATIN CA 40 MG TABLET (FP) PO SCH (22:08)
[2020-01-19] MEDS ORDERED: PIPERACILLIN/TAZOBACTAM 2.25 GM VIAL IVPB ONE ×3 (01:26→18:25)
[2020-01-19] MEDS ORDERED: DEXTROSE 5%-WATER - 50 ML IVPB ONE ×3 (01:26→18:25)
[2020-01-19] MEDS: PIPERACILLIN/TAZOB 2.25 GM 2.25 GM in DEXTROSE 5%-WATER - 50 ML IVPB SCH ×3 (01:31→18:29)
[2020-01-19] MEDS: INSULIN SLIDING SCALE (NOVOLOG) 1 VIAL SQ SCH ×4 (06:45→22:13)
--- NOTE | 2020-01-19 09:23 | PN ---
Progress Note (short form) - Note Progress Note: NEUROSURGERY In telemetry PE: Tmax 100.1, VSS; O2 sat 100% HEENT- NC/AT; neck- supple; Cor- RR; Lungs- decreased BS at bases; Abd- benign; Ext- no obvious signs of DVT Eyes closed; not following commands; poorly responsive CN- L facial droop; Motor- minimal flexing to pain L UE; Sensation- difficult to assess; DTR- B toes downgoing Acute large R MCA and chronic L MCA stroke Seen by ID for possible asp pneumonia Prognosis extremely poor given poor neurological condition, large size of R MCA stroke, underlying medical conditions including ESRD and prior L MCA stroke Neurosurgical intervention not recommended, will sign off, please reconsult prn On Zosyn for coverage per ID On Plavix per neurology
--- NOTE | 2020-01-19 10:34 | PN ---
Progress Note, Physician History of Present Illness: PULMONARY POORLY RESPONSIVE ,-RESP DISTRESS,ON NASAL O2 - Current Medication List Current Medications: Active Medications Acetaminophen (Tylenol -) 650 mg PO Q6H PRN PRN Reason: Fever Or Pain Atorvastatin Calcium (Lipitor -) 40 mg PO HS [facility] Last Admin: 01/18/20 22:08 Dose: 40 mg Documented by: Clopidogrel Bisulfate (Plavix -) 75 mg PO DAILY [facility] Last Admin: 01/18/20 09:39 Dose: 75 mg Documented by: Piperacillin Sod/Tazobactam (Sod 2.25 gm/ Dextrose) 50 mls @ 100 mls/hr IVPB Q8H-IV JOSE; Protocol Last Admin: 01/19/20 01:31 Dose: 100 mls/hr Documented by: Sodium Chloride (Normal Saline -) 1,000 mls @ 50 mls/hr IV ASDIR [facility] Last Admin: 01/18/20 22:07 Dose: 50 mls/hr Documented by: Sodium Chloride (Normal Saline -) 250 mls @ 3,000 mls/hr IV PRN PRN PRN Reason: Hypotension during Dialysis Stop: 01/19/20 11:16 Insulin Aspart (Novolog Vial Sliding Scale -) 1 vial SQ ACHS [facility]; Protocol Last Admin: 01/19/20 06:45 Dose: 2 units Documented by: - Objective Vital Signs: Vital Signs Temperature 97.8 F 01/19/20 06:00 Pulse Rate 100 H 01/19/20 06:00 Respiratory Rate 22 H 01/19/20 06:00 Blood Pressure 153/88 01/19/20 06:00 O2 Sat by Pulse Oximetry (%) 100 01/18/20 22:00 Constitutional: Yes: Well Nourished, Obese, Other (POORLY RESPONSIVE) HENT: Yes: WNL Neck: Yes: WNL Cardiovascular: Yes: Regular Rate and Rhythm, S1, S2 Respiratory: Yes: Diminished, Other (POOR INSPIRATORY EFFORT) Gastrointestinal: Yes: Normal Bowel Sounds, Soft Extremities: Yes: WNL Edema: No Labs: Problem List - Problems (1) Altered mental status Code(s): R41.82 - ALTERED MENTAL STATUS, UNSPECIFIED (2) Pneumonia, aspiration Code(s): J69.0 - PNEUMONITIS DUE TO INHALATION OF FOOD AND VOMIT (3) Stroke Code(s): I63.9 - CEREBRAL INFARCTION, UNSPECIFIED (4) Hypertension Code(s): I10 - ESSENTIAL (PRIMARY) HYPERTENSION (5) ESRD on dialysis Code(s): N18.6 - END STAGE RENAL DISEASE; Z99.2 - DEPENDENCE ON RENAL DIALYSIS Assessment/Plan A/P Acute CVA Pneumonia likely Aspiration ESRD on HD HTN DM Hyperlipidemia h/o CVA - continue antibiotics - aspiration precautions - O2 to keep SpO2 >90% - statin, plavix - DVT prophylaxis - poor prognosis - f/u chest x-ray DR RAMIREZ
--- NOTE | 2020-01-19 10:38 | PN ---
Progress Note (short form) - Note Progress Note: VAscular Surgery Sacral ulcer stage 3. Pt has slough in center. Start santyl daily. Please offload area. Will continue to follow Anup Lomax DO
[2020-01-19] MEDS: SODIUM CHLORIDE 1,000 ML IV SCH (10:57)
[2020-01-19] MEDS: CLOPIDOGREL BISULFATE 75 MG TABLET (FP) PO SCH (10:58)
--- NOTE | 2020-01-19 12:04 | PN ---
Progress Note, Physician History of Present Illness: Pt seen/ examined comfortable poorly responsive to painful stimuli only All f/u noted - Current Medication List Current Medications: Active Medications Acetaminophen (Tylenol -) 650 mg PO Q6H PRN PRN Reason: Fever Or Pain Atorvastatin Calcium (Lipitor -) 40 mg PO HS JOSE Last Admin: 01/18/20 22:08 Dose: 40 mg Documented by: Clopidogrel Bisulfate (Plavix -) 75 mg PO DAILY [facility] Last Admin: 01/19/20 10:58 Dose: 75 mg Documented by: Collagenase (Santyl -) 1 applic TP DAILY [facility]; Protocol Piperacillin Sod/Tazobactam (Sod 2.25 gm/ Dextrose) 50 mls @ 100 mls/hr IVPB Q8H-IV JOSE; Protocol Last Admin: 01/19/20 10:58 Dose: 100 mls/hr Documented by: Sodium Chloride (Normal Saline -) 1,000 mls @ 50 mls/hr IV ASDIR [facility] Last Admin: 01/19/20 10:57 Dose: 50 mls/hr Documented by: Sodium Chloride (Normal Saline -) 250 mls @ 3,000 mls/hr IV PRN PRN PRN Reason: Hypotension during Dialysis Stop: 01/19/20 11:16 Insulin Aspart (Novolog Vial Sliding Scale -) 1 vial SQ ACHS [facility]; Protocol Last Admin: 01/19/20 06:45 Dose: 2 units Documented by: - Objective Vital Signs: Vital Signs Temperature 97.8 F 01/19/20 06:00 Pulse Rate 100 H 01/19/20 06:00 Respiratory Rate 22 H 01/19/20 06:00 Blood Pressure 153/88 01/19/20 06:00 O2 Sat by Pulse Oximetry (%) 100 01/18/20 22:00 Constitutional: Yes: Other (poorly responsive) Neck: Yes: Supple Cardiovascular: Yes: Regular Rate and Rhythm Respiratory: Yes: Diminished Gastrointestinal: Yes: Soft Wound/Incision: Yes: Other (sacral decubitus -Stage 3) Labs: CBC, BMP 01/18/20 06:10 01/18/20 06:10 INR, PTT INR 1.02 (0.83-1.09) 01/14/20 20:10 Problem List - Problems (1) Stroke Code(s): I63.9 - CEREBRAL INFARCTION, UNSPECIFIED (2) Pneumonia, aspiration Code(s): J69.0 - PNEUMONITIS DUE TO INHALATION OF FOOD AND VOMIT (3) Diabetes Code(s): E11.9 - TYPE 2 DIABETES MELLITUS WITHOUT COMPLICATIONS (4) ESRD on dialysis Code(s): N18.6 - END STAGE RENAL DISEASE; Z99.2 - DEPENDENCE ON RENAL DIALYSIS Assessment/Plan A/P Acute right temporoparietal infarct -- Large MCA aspiration pneumonia ESRD -HD NG feeding CONTINUE PRESENT CARE ABX PALLIATIVE CARE PROGNOSIS POOR PT IS DNR
--- NOTE | 2020-01-19 12:31 | PN ---
Progress Note, Physician Chief Complaint: POORLY RESPONSIVE AFEBRILE BREATHING NON-LABORED WBC SL ELEVATED BC NO GROWTH - Current Medication List Current Medications: Active Medications Acetaminophen (Tylenol -) 650 mg PO Q6H PRN PRN Reason: Fever Or Pain Atorvastatin Calcium (Lipitor -) 40 mg PO HS JOSE Last Admin: 01/18/20 22:08 Dose: 40 mg Documented by: Clopidogrel Bisulfate (Plavix -) 75 mg PO DAILY JOSE Last Admin: 01/19/20 10:58 Dose: 75 mg Documented by: Collagenase (Santyl -) 1 applic TP DAILY JOSE; Protocol Piperacillin Sod/Tazobactam (Sod 2.25 gm/ Dextrose) 50 mls @ 100 mls/hr IVPB Q8H-IV JOSE; Protocol Last Admin: 01/19/20 10:58 Dose: 100 mls/hr Documented by: Sodium Chloride (Normal Saline -) 1,000 mls @ 50 mls/hr IV ASDIR JOSE Last Admin: 01/19/20 10:57 Dose: 50 mls/hr Documented by: Sodium Chloride (Normal Saline -) 250 mls @ 3,000 mls/hr IV PRN PRN PRN Reason: Hypotension during Dialysis Stop: 01/19/20 11:16 Insulin Aspart (Novolog Vial Sliding Scale -) 1 vial SQ ACHS JOSE; Protocol Last Admin: 01/19/20 06:45 Dose: 2 units Documented by: - Objective Vital Signs: Vital Signs Temperature 97.8 F 01/19/20 06:00 Pulse Rate 100 H 01/19/20 06:00 Respiratory Rate 22 H 01/19/20 06:00 Blood Pressure 153/88 01/19/20 06:00 O2 Sat by Pulse Oximetry (%) 100 01/18/20 22:00 Constitutional: Yes: No Distress Eyes: Yes: Conjunctiva Clear Cardiovascular: Yes: Regular Rate and Rhythm, S1, S2 Respiratory: Yes: Diminished Gastrointestinal: Yes: Normal Bowel Sounds, Soft. No: Tenderness Edema: Yes Edema: LLE: 1+, RLE: 1+ Labs: CBC, BMP 01/18/20 06:10 01/18/20 06:10 INR, PTT INR 1.02 (0.83-1.09) 01/14/20 20:10 Assessment/Plan S/P ACUTE CVA ALTERED MENTATION PROBABLE ASP RLL PNEUMONIA ESRD FEVER/ LEUKOCYTOSIS OBS CONTINUE EMPIRIC ZOSYN VENTILATORY SUPPORT
[2020-01-19] MEDS: COLLAGENASE CLOSTRIDIUM HIST. 30 GRAMS TUBE TP SCH (12:32)
--- NOTE | 2020-01-19 12:51 | PN ---
Progress Note (short form) - Note Progress Note: 74 year old female brought patient from [place] for unreponsivness for two days prior to admission. Patient has history of stroke three months ago and has been decline since than. Sherinet has been awake two days agoa and slowly became aphasic and unreponsive. Patient has no seizure, she has high wbc and suspected to have aspiration pneumonia. Patient has large right mca cerebral edema. She is intubated and not on any sedation and no reponse to painful stimuli her nih score was 33 and she was out of window for tpa on arriaval.Patient is still unreponsive. no seizure like activity. repeat ct head showed there is interval change with midline shift due to cerebral edema on right side no new compalin, continue to remain less responsive , and afebril NEUROLOGICAL EXAMINATION comatose and very minimal response to painfl stimuli neck is supple afebrile pupils is small sluggsihly reactive gag and corneal reflex is present bp is maintained ct head showed large right mca cerebral edema repeat ct head on january 16 showed interval change Assessment/Plan 1. 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
--- NOTE | 2020-01-19 16:04 | PN ---
Progress Note (short form) - Note Progress Note: RENAL pt is being monitored in telemetry Has been found to have a large mca stroke with some deviation but neurosurgery declines intervention today appears status quo I ordered hd for today but due to logistical issues she wont be able to get dialyzed Last Vital Signs Temp Pulse Resp BP Pulse Ox 97.8 F 100 H 22 H 153/88 100 01/19/20 06:00 01/19/20 06:00 01/19/20 06:00 01/19/20 06:00 01/18/20 22:00 lungs clear cvs s1s2 rr abd soft ext no edema neuro unresponsive CBC, BMP 01/18/20 06:10 01/18/20 06:10 Current Medications Generic Name Dose Route Start Last Admin Trade Name Freq PRN Reason Stop Dose Admin Acetaminophen 650 mg 01/17/20 06:23 Tylenol - PO Q6H PRN Fever Or Pain Atorvastatin Calcium 40 mg 01/15/20 22:00 01/18/20 22:08 Lipitor - PO 40 mg HS JOSE Administration Clopidogrel Bisulfate 75 mg 01/18/20 10:00 01/19/20 10:58 Plavix - PO 75 mg DAILY JOSE Administration Collagenase 1 applic 01/19/20 10:45 01/19/20 12:32 Santyl - TP 1 applic DAILY JOSE Administration Protocol Piperacillin Sod/Tazobactam 50 mls @ 100 mls/hr 01/15/20 18:45 01/19/20 10:58 Sod 2.25 gm/ Dextrose IVPB 100 mls/hr Q8H-IV JOSE Administration Protocol Sodium Chloride 1,000 mls @ 50 mls/hr 01/17/20 09:02 01/19/20 10:57 Normal Saline - IV 50 mls/hr ASDIR JOSE Administration Sodium Chloride 250 mls @ 3,000 mls/hr 01/18/20 11:16 Normal Saline - IV 01/19/20 11:16 PRN PRN Hypotension during Dialysis Insulin Aspart 1 vial 01/17/20 22:15 01/19/20 12:36 Novolog Vial Sliding Scale - SQ 2 units ACHS JOSE Administration Protocol IMPRESSION esrd htn s/p cva x 2 hypokalemia covid 19 neg PLAN Will plan to dialyze tomorrow unless there is a change in overall plan would repeat labs agaion tomorrow would use orders written for today, tomorrow MV MV
[2020-01-19] MEDS: ATORVASTATIN CA 40 MG TABLET (FP) PO SCH (21:56)
[2020-01-20] MEDS ORDERED: PIPERACILLIN/TAZOBACTAM 2.25 GM VIAL IVPB ONE ×3 (01:22→18:21)
[2020-01-20] MEDS ORDERED: DEXTROSE 5%-WATER - 50 ML IVPB ONE ×3 (01:23→18:21)
[2020-01-20] MEDS: PIPERACILLIN/TAZOB 2.25 GM 2.25 GM in DEXTROSE 5%-WATER - 50 ML IVPB SCH ×3 (01:42→17:24)
[2020-01-20] MEDS: INSULIN SLIDING SCALE (NOVOLOG) 1 VIAL SQ SCH ×4 (06:26→23:35)
--- NOTE | 2020-01-20 10:24 | PN ---
Progress Note, Physician Chief Complaint: UNRESPONSIVE JUST COMPLETED DIALYSIS AFEBRILE BREATHING NON-LABORED WBC SL ELEVATED BC NO GROWTH - Current Medication List Current Medications: Active Medications Acetaminophen (Tylenol -) 650 mg PO Q6H PRN PRN Reason: Fever Or Pain Atorvastatin Calcium (Lipitor -) 40 mg PO HS JOSE Last Admin: 01/19/20 21:56 Dose: 40 mg Documented by: Clopidogrel Bisulfate (Plavix -) 75 mg PO DAILY JOSE Last Admin: 01/19/20 10:58 Dose: 75 mg Documented by: Collagenase (Santyl -) 1 applic TP DAILY [facility]; Protocol Last Admin: 01/19/20 12:32 Dose: 1 applic Documented by: Piperacillin Sod/Tazobactam (Sod 2.25 gm/ Dextrose) 50 mls @ 100 mls/hr IVPB Q8H-IV JOSE; Protocol Last Admin: 01/20/20 01:42 Dose: 100 mls/hr Documented by: Sodium Chloride (Normal Saline -) 1,000 mls @ 50 mls/hr IV ASDIR [facility] Last Admin: 01/19/20 10:57 Dose: 50 mls/hr Documented by: Sodium Chloride (Normal Saline -) 250 mls @ 3,000 mls/hr IV PRN PRN PRN Reason: Hypotension during Dialysis Stop: 01/20/20 11:17 Insulin Aspart (Novolog Vial Sliding Scale -) 1 vial SQ ACHS [facility]; Protocol Last Admin: 01/20/20 06:26 Dose: Not Given Documented by: - Objective Vital Signs: Vital Signs Temperature 97.7 F 01/20/20 06:55 Pulse Rate 120 H 01/20/20 08:30 Respiratory Rate 20 01/20/20 08:30 Blood Pressure 114/77 01/20/20 08:30 O2 Sat by Pulse Oximetry (%) 100 01/20/20 06:00 Constitutional: Yes: No Distress Eyes: Yes: Conjunctiva Clear Cardiovascular: Yes: Regular Rate and Rhythm, S1, S2 Respiratory: Yes: CTA Bilaterally, Diminished Gastrointestinal: Yes: Normal Bowel Sounds, Soft. No: Tenderness Edema: No Labs: CBC, BMP 01/18/20 06:10 01/18/20 06:10 INR, PTT INR 1.02 (0.83-1.09) 01/14/20 20:10 Assessment/Plan S/P ACUTE CVA ALTERED MENTATION PROBABLE ASP RLL PNEUMONIA ESRD FEVER/ LEUKOCYTOSIS OBS CONTINUE EMPIRIC ZOSYN VENTILATORY SUPPORT PROGNOSIS POOR
[2020-01-20] MEDS: SODIUM CHLORIDE 1,000 ML IV SCH (11:11)
[2020-01-20] MEDS: CLOPIDOGREL BISULFATE 75 MG TABLET (FP) PO SCH (11:11)
[2020-01-20] MEDS: COLLAGENASE CLOSTRIDIUM HIST. 30 GRAMS TUBE TP SCH (11:12)
[2020-01-20] MEDS ORDERED: SODIUM CHLORIDE 250 ML IV PRN (11:16)
--- NOTE | 2020-01-20 12:16 | PN ---
Progress Note (short form) - Note Progress Note: non verbal events noted lethargic opens eyes to painful stimuli Vital Signs - 24 hr 01/19/20 01/19/20 01/19/20 14:00 18:00 21:00 Temperature 97.7 F 98.4 F Pulse Rate 110 H 107 H Respiratory 18 20 Rate Blood Pressure 141/79 145/89 O2 Sat by Pulse 100 100 Oximetry (%) 01/19/20 01/20/20 01/20/20 22:00 02:00 06:00 Temperature 98.9 F 98.9 F 98.4 F Pulse Rate 114 H 112 H 108 H Respiratory 20 18 18 Rate Blood Pressure 159/90 160/96 157/91 O2 Sat by Pulse 100 100 Oximetry (%) 01/20/20 01/20/20 01/20/20 06:55 07:00 07:15 Temperature 97.7 F Pulse Rate 108 H 105 H 113 H Respiratory 20 20 20 Rate Blood Pressure 151/95 154/82 162/104 H O2 Sat by Pulse Oximetry (%) 01/20/20 01/20/20 01/20/20 07:30 08:00 08:15 Temperature Pulse Rate 122 H 124 H 124 H Respiratory 20 20 20 Rate Blood Pressure 142/97 137/73 114/77 O2 Sat by Pulse Oximetry (%) 01/20/20 01/20/20 01/20/20 08:30 09:00 09:30 Temperature Pulse Rate 120 H 112 H 112 H Respiratory 20 20 20 Rate Blood Pressure 114/77 126/84 132/84 O2 Sat by Pulse Oximetry (%) 01/20/20 01/20/20 10:00 10:10 Temperature 0 F L 98.2 F Pulse Rate 110 H 108 H Respiratory 20 20 Rate Blood Pressure 112/72 156/78 O2 Sat by Pulse Oximetry (%) Current Medications Generic Name Dose Route Start Last Admin Trade Name Freq PRN Reason Stop Dose Admin Acetaminophen 650 mg 01/17/20 06:23 Tylenol - PO Q6H PRN Fever Or Pain Atorvastatin Calcium 40 mg 01/15/20 22:00 01/19/20 21:56 Lipitor - PO 40 mg HS JOSE Administration Clopidogrel Bisulfate 75 mg 01/18/20 10:00 01/20/20 11:11 Plavix - PO 75 mg DAILY JOSE Administration Collagenase 1 applic 01/19/20 10:45 01/20/20 11:12 Santyl - TP 1 applic DAILY JOSE Administration Protocol Piperacillin Sod/Tazobactam 50 mls @ 100 mls/hr 01/15/20 18:45 01/20/20 11:13 Sod 2.25 gm/ Dextrose IVPB 100 mls/hr Q8H-IV JOSE Administration Protocol Sodium Chloride 1,000 mls @ 50 mls/hr 01/17/20 09:02 01/20/20 11:11 Normal Saline - IV 50 mls/hr ASDIR JOSE Administration Insulin Aspart 1 vial 01/17/20 22:15 01/20/20 11:13 Novolog Vial Sliding Scale - SQ 2 units ACHS JOSE Administration Protocol Laboratory Results - last 24 hr 01/19/20 22:09 POC Glucometer 176 S1 S2 RRR Lungs decreased Abd- soft, NT No edema awake, not responding to questions A/P Acute right temporoparietal infarct previous CVA ESRD on HD aspiration pneumonia --- maintaining airway on Nasal canula -- NG feeding -- CT head repeat shows worsening edema, infarct -- on iv antibiotics -- poor prognosis --- continue with meds -- palliative care eval -- chance of meaningful recovery is poor Problem List - Problems (1) Altered mental status Code(s): R41.82 - ALTERED MENTAL STATUS, UNSPECIFIED (2) Lactic acidosis Code(s): E87.2 - ACIDOSIS (3) Pneumonia, aspiration Code(s): J69.0 - PNEUMONITIS DUE TO INHALATION OF FOOD AND VOMIT (4) Stroke Code(s): I63.9 - CEREBRAL INFARCTION, UNSPECIFIED (5) ESRD on dialysis Code(s): N18.6 - END STAGE RENAL DISEASE; Z99.2 - DEPENDENCE ON RENAL DIALYSIS (6) Hypertension Code(s): I10 - ESSENTIAL (PRIMARY) HYPERTENSION
--- NOTE | 2020-01-20 14:45 | PN ---
Progress Note (short form) - Note Progress Note: Lethargic but arousbale to noxious stimuli. Not able to answer questions. No acute events overnight. Intake & Output 01/17/20 01/18/20 01/19/20 01/20/20 23:59 23:59 23:59 23:59 Intake Total 1310 1085 1660 1360 Output Total 0 1800 Balance 1310 1085 1660 -440 Weight 87 lb 90 lb 94 lb 0.4 oz Last Vital Signs Temp Pulse Resp BP Pulse Ox 98.2 F 108 H 20 156/78 100 01/20/20 10:10 01/20/20 10:10 01/20/20 10:10 01/20/20 10:10 01/20/20 09:00 Active Medications Acetaminophen (Tylenol -) 650 mg PO Q6H PRN PRN Reason: Fever Or Pain Atorvastatin Calcium (Lipitor -) 40 mg PO HS [facility] Last Admin: 01/19/20 21:56 Dose: 40 mg Documented by: Clopidogrel Bisulfate (Plavix -) 75 mg PO DAILY [facility] Last Admin: 01/20/20 11:11 Dose: 75 mg Documented by: Collagenase (Santyl -) 1 applic TP DAILY [facility]; Protocol Last Admin: 01/20/20 11:12 Dose: 1 applic Documented by: Piperacillin Sod/Tazobactam (Sod 2.25 gm/ Dextrose) 50 mls @ 100 mls/hr IVPB Q8H-IV JOSE; Protocol Last Admin: 01/20/20 11:13 Dose: 100 mls/hr Documented by: Sodium Chloride (Normal Saline -) 1,000 mls @ 50 mls/hr IV ASDIR JOSE Last Admin: 01/20/20 11:11 Dose: 50 mls/hr Documented by: Insulin Aspart (Novolog Vial Sliding Scale -) 1 vial SQ ACHS JOSE; Protocol Last Admin: 01/20/20 11:13 Dose: 2 units Documented by: Constitutional: Yes: Lethargic, NAD HENT: Yes: WNL Neck: Yes: WNL Cardiovascular: Yes: Regular Rate and Rhythm, S1, S2 Respiratory: Yes: Diminished Gastrointestinal: Yes: Normal Bowel Sounds, Soft Extremities: Yes: WNL Edema: No Labs: Laboratory Results - last 24 hr 01/19/20 22:09 POC Glucometer 176 Problem List - Problems (1) Altered mental status Code(s): R41.82 - ALTERED MENTAL STATUS, UNSPECIFIED (2) Pneumonia, aspiration Code(s): J69.0 - PNEUMONITIS DUE TO INHALATION OF FOOD AND VOMIT (3) Stroke Code(s): I63.9 - CEREBRAL INFARCTION, UNSPECIFIED (4) Hypertension Code(s): I10 - ESSENTIAL (PRIMARY) HYPERTENSION (5) ESRD on dialysis Code(s): N18.6 - END STAGE RENAL DISEASE; Z99.2 - DEPENDENCE ON RENAL DIALYSIS Assessment/Plan Acute CVA Pneumonia likely Aspiration ESRD on HD HTN DM Hyperlipidemia h/o CVA - ABX - aspiration precautions - O2 to keep SpO2 >90% - statin, plavix - DVT prophylaxis - poor prognosis - GOC being discussed Dr Alonzo
--- NOTE | 2020-01-20 14:59 | PN ---
Progress Note, Physician Chief Complaint: Pt dialyzed earlier today She is poorly responsive and in no distress Will need a PEG and to be resuscitated if necessary as per dtr No recent labs - Current Medication List Current Medications: Active Medications Acetaminophen (Tylenol -) 650 mg PO Q6H PRN PRN Reason: Fever Or Pain Atorvastatin Calcium (Lipitor -) 40 mg PO HS JOSE Last Admin: 01/19/20 21:56 Dose: 40 mg Documented by: Clopidogrel Bisulfate (Plavix -) 75 mg PO DAILY JOSE Last Admin: 01/20/20 11:11 Dose: 75 mg Documented by: Collagenase (Santyl -) 1 applic TP DAILY JOSE; Protocol Last Admin: 01/20/20 11:12 Dose: 1 applic Documented by: Piperacillin Sod/Tazobactam (Sod 2.25 gm/ Dextrose) 50 mls @ 100 mls/hr IVPB Q8H-IV JOSE; Protocol Last Admin: 01/20/20 11:13 Dose: 100 mls/hr Documented by: Sodium Chloride (Normal Saline -) 1,000 mls @ 50 mls/hr IV ASDIR [facility]SE Last Admin: 01/20/20 11:11 Dose: 50 mls/hr Documented by: Insulin Aspart (Novolog Vial Sliding Scale -) 1 vial SQ ACHS JOSE; Protocol Last Admin: 01/20/20 11:13 Dose: 2 units Documented by: - Objective Vital Signs: Vital Signs Temperature 98.2 F 01/20/20 10:10 Pulse Rate 108 H 01/20/20 10:10 Respiratory Rate 20 01/20/20 10:10 Blood Pressure 156/78 01/20/20 10:10 O2 Sat by Pulse Oximetry (%) 100 01/20/20 09:00 Constitutional: Yes: No Distress Neck: Yes: Other (RIJ Perm Cath) Cardiovascular: Yes: S1, S2 Respiratory: Yes: CTA Bilaterally Gastrointestinal: Yes: Soft. No: Tenderness Edema: No Neurological: Yes: Other (Poorly responsive) Labs: CBC, BMP 01/18/20 06:10 01/18/20 06:10 INR, PTT INR 1.02 (0.83-1.09) 01/14/20 20:10 Assessment/Plan Acute CVA Pneumonia likely Aspiration ESRD on HD HTN DM Hyperlipidemia Anemia Plan For PEG Replace K as needed Rpt labs in am and if still hypernatremic change to D5 1/2 NS Statin Plavix DVT and GI prophylaxis as per primary care Dr Horta
[2020-01-20] MEDS: ATORVASTATIN CA 40 MG TABLET (FP) PO SCH (23:31)
[2020-01-21] MEDS ORDERED: DEXTROSE 5%-WATER - 50 ML IVPB ONE ×3 (01:19→16:48)
[2020-01-21] MEDS ORDERED: PIPERACILLIN/TAZOBACTAM 2.25 GM VIAL IVPB ONE ×3 (01:19→16:48)
[2020-01-21] MEDS: PIPERACILLIN/TAZOB 2.25 GM 2.25 GM in DEXTROSE 5%-WATER - 50 ML IVPB SCH ×3 (01:35→17:55)
[2020-01-21] MEDS: INSULIN SLIDING SCALE (NOVOLOG) 1 VIAL SQ SCH ×4 (06:02→22:24)
--- NOTE | 2020-01-21 07:47 | PN ---
Progress Note (short form) - Note Progress Note: GI CONSULT DICTATED ATTEMPTED TO CONTACT FAMILY AT [phone] WELL [phone] WITHOUT RESPONSE . WE WILL F/U WITH THEM TOMORROW AND DISCUSS THE RISK AND BENEFIT OF PEG TUBE PLACEMENT FOR NOW REC NGT FEEDS / PALLIATIVE CARE F/U
[2020-01-21] MEDS: SODIUM CHLORIDE 1,000 ML IV SCH (09:57)
[2020-01-21] MEDS: COLLAGENASE CLOSTRIDIUM HIST. 30 GRAMS TUBE TP SCH (09:57)
[2020-01-21] MEDS: CLOPIDOGREL BISULFATE 75 MG TABLET (FP) PO SCH (10:01)
--- NOTE | 2020-01-21 10:26 | PN ---
Progress Note, Physician Chief Complaint: Pt remains poorly responsive and in no distress Will need a PEG and to be resuscitated if necessary as per dtr No recent labs since they could not be drawn given her poor venous access - Current Medication List Current Medications: Active Medications Acetaminophen (Tylenol -) 650 mg PO Q6H PRN PRN Reason: Fever Or Pain Atorvastatin Calcium (Lipitor -) 40 mg PO HS JOSE Last Admin: 01/20/20 23:31 Dose: Not Given Documented by: Clopidogrel Bisulfate (Plavix -) 75 mg PO DAILY JOSE Last Admin: 01/21/20 10:01 Dose: 75 mg Documented by: Collagenase (Santyl -) 1 applic TP DAILY JOSE; Protocol Last Admin: 01/21/20 09:57 Dose: 1 applic Documented by: Piperacillin Sod/Tazobactam (Sod 2.25 gm/ Dextrose) 50 mls @ 100 mls/hr IVPB Q8H-IV JOSE; Protocol Last Admin: 01/21/20 09:58 Dose: 100 mls/hr Documented by: Sodium Chloride (Normal Saline -) 1,000 mls @ 50 mls/hr IV ASDIR JOSE Last Admin: 01/21/20 09:57 Dose: 50 mls/hr Documented by: Insulin Aspart (Novolog Vial Sliding Scale -) 1 vial SQ ACHS JOSE; Protocol Last Admin: 01/21/20 06:02 Dose: Not Given Documented by: - Objective Vital Signs: Vital Signs Temperature 98.4 F 01/21/20 09:56 Pulse Rate 100 H 01/21/20 09:56 Respiratory Rate 20 01/21/20 09:56 Blood Pressure 150/80 01/21/20 09:56 O2 Sat by Pulse Oximetry (%) 100 01/20/20 22:00 Constitutional: Yes: No Distress Cardiovascular: Yes: S1, S2 Respiratory: Yes: Other (Equal air entry B/L) Gastrointestinal: Yes: Soft. No: Distention Edema: No Labs: CBC, BMP 01/18/20 06:10 01/18/20 06:10 INR, PTT INR 1.02 (0.83-1.09) 01/14/20 20:10 Assessment/Plan Acute CVA Pneumonia likely Aspiration ESRD on HD HTN DM Hyperlipidemia Anemia Plan Next HD 01/22 and to rpt labs pre HD if they can not be drawn peripherally Abx GI to see pt for PEG insertion Statin Plavix DVT and GI prophylaxis as per primary care- Consider addition of an antacid Prognosis poor Dr Horta
--- NOTE | 2020-01-21 12:53 | PN ---
Progress Note (short form) - Note Progress Note: non verbal events noted lethargic opens eyes to painful stimuli Vital Signs - 24 hr 01/20/20 01/20/20 01/20/20 18:00 21:00 22:00 Temperature 99.5 F 98.0 F Pulse Rate 115 H 116 H Respiratory 20 20 Rate Blood Pressure 148/87 141/82 O2 Sat by Pulse 100 100 100 Oximetry (%) 01/21/20 01/21/20 01/21/20 02:00 06:59 09:00 Temperature 100.7 F H 98.7 F Pulse Rate 111 H 113 H Respiratory 19 20 20 Rate Blood Pressure 139/77 137/71 O2 Sat by Pulse 100 Oximetry (%) 01/21/20 09:56 Temperature 98.4 F Pulse Rate 100 H Respiratory 20 Rate Blood Pressure 150/80 O2 Sat by Pulse Oximetry (%) Current Medications Generic Name Dose Route Start Last Admin Trade Name Freq PRN Reason Stop Dose Admin Acetaminophen 650 mg 01/17/20 06:23 Tylenol - PO Q6H PRN Fever Or Pain Atorvastatin Calcium 40 mg 01/15/20 22:00 01/20/20 23:31 Lipitor - PO Not Given HS JOSE Clopidogrel Bisulfate 75 mg 01/18/20 10:00 01/21/20 10:01 Plavix - PO 75 mg DAILY JOSE Administration Collagenase 1 applic 01/19/20 10:45 01/21/20 09:57 Santyl - TP 1 applic DAILY JOSE Administration Protocol Piperacillin Sod/Tazobactam 50 mls @ 100 mls/hr 01/15/20 18:45 01/21/20 09:58 Sod 2.25 gm/ Dextrose IVPB 100 mls/hr Q8H-IV JOSE Administration Protocol Sodium Chloride 1,000 mls @ 50 mls/hr 01/17/20 09:02 01/21/20 09:57 Normal Saline - IV 50 mls/hr ASDIR JOSE Administration Insulin Aspart 1 vial 01/17/20 22:15 01/21/20 11:35 Novolog Vial Sliding Scale - SQ 2 units ACHS JOSE Administration Protocol Laboratory Results - last 24 hr 01/20/20 01/20/20 01/21/20 17:19 23:34 05:54 POC Glucometer 97 153 136 S1 S2 RRR Lungs decreased Abd- soft, NT No edema awake, not responding to questions A/P Acute right temporoparietal infarct previous CVA ESRD on HD aspiration pneumonia --- maintaining airway on Nasal canula -- NG feeding -- CT head repeat shows worsening edema, infarct -- on iv antibiotics -- poor prognosis --- continue with meds -- palliative care eval -- chance of meaningful recovery is poor Problem List - Problems (1) Altered mental status Code(s): R41.82 - ALTERED MENTAL STATUS, UNSPECIFIED (2) Lactic acidosis Code(s): E87.2 - ACIDOSIS (3) Pneumonia, aspiration Code(s): J69.0 - PNEUMONITIS DUE TO INHALATION OF FOOD AND VOMIT (4) Stroke Code(s): I63.9 - CEREBRAL INFARCTION, UNSPECIFIED (5) ESRD on dialysis Code(s): N18.6 - END STAGE RENAL DISEASE; Z99.2 - DEPENDENCE ON RENAL DIALYSIS (6) Hypertension Code(s): I10 - ESSENTIAL (PRIMARY) HYPERTENSION
--- NOTE | 2020-01-21 14:15 | PN ---
Progress Note (short form) - Note Progress Note: Lethargic but arousbale to noxious stimuli. Not able to answer questions. No acute events overnight. Intake & Output 01/18/20 01/19/20 01/20/20 01/21/20 23:59 23:59 23:59 23:59 Intake Total 1085 1660 2440 350 Output Total 1800 Balance 1085 1660 640 350 Weight 90 lb 94 lb 0.4 oz Last Vital Signs Temp Pulse Resp BP Pulse Ox 98.4 F 100 H 20 150/80 100 01/21/20 09:56 01/21/20 09:56 01/21/20 09:56 01/21/20 09:56 01/21/20 09:00 Last Vital Signs Temp Pulse Resp BP Pulse Ox 98.4 F 100 H 20 150/80 100 01/21/20 09:56 01/21/20 09:56 01/21/20 09:56 01/21/20 09:56 01/21/20 09:00 Constitutional: Yes: Lethargic, NAD HENT: Yes: WNL Neck: Yes: WNL Cardiovascular: Yes: Regular Rate and Rhythm, S1, S2 Respiratory: Yes: Diminished Gastrointestinal: Yes: Normal Bowel Sounds, Soft Extremities: Yes: WNL Edema: No Labs: Laboratory Results - last 24 hr 01/20/20 01/20/20 01/21/20 17:19 23:34 05:54 POC Glucometer 97 153 136 Problem List - Problems (1) Altered mental status Code(s): R41.82 - ALTERED MENTAL STATUS, UNSPECIFIED (2) Pneumonia, aspiration Code(s): J69.0 - PNEUMONITIS DUE TO INHALATION OF FOOD AND VOMIT (3) Stroke Code(s): I63.9 - CEREBRAL INFARCTION, UNSPECIFIED (4) Hypertension Code(s): I10 - ESSENTIAL (PRIMARY) HYPERTENSION (5) ESRD on dialysis Code(s): N18.6 - END STAGE RENAL DISEASE; Z99.2 - DEPENDENCE ON RENAL DIALYSIS Assessment/Plan Acute CVA Pneumonia likely Aspiration ESRD on HD HTN DM Hyperlipidemia h/o CVA - ABX - aspiration precautions - O2 to keep SpO2 >90% - statin, plavix - DVT prophylaxis - poor prognosis - GOC being discussed Dr Alonzo
[2020-01-21] MEDS: ATORVASTATIN CA 40 MG TABLET (FP) PO SCH (22:24)
[2020-01-22] MEDS ORDERED: PIPERACILLIN/TAZOBACTAM 2.25 GM VIAL IVPB ONE ×3 (01:51→16:35)
[2020-01-22] MEDS ORDERED: DEXTROSE 5%-WATER - 50 ML IVPB ONE ×3 (01:51→16:35)
[2020-01-22] MEDS: PIPERACILLIN/TAZOB 2.25 GM 2.25 GM in DEXTROSE 5%-WATER - 50 ML IVPB SCH ×3 (02:13→17:10)
[2020-01-22] MEDS: INSULIN SLIDING SCALE (NOVOLOG) 1 VIAL SQ SCH ×4 (06:31→21:28)
--- NOTE | 2020-01-22 09:34 | CONS ---
DATE OF CONSULTATION: DATE OF DICTATION: 01/21/2020 HISTORY OF PRESENT ILLNESS: The patient is a 74-year-old female with a past medical history of end stage renal disease on hemodialysis, hypertension, diabetes, reflux disease, hyperlipidemia, a stroke 3 months ago who was admitted to the ICU for complaints of weakness and unresponsiveness. Her CT of the head on the revealed a right parietal occipital temporal lobe acute CVA. This consultation is for PEG tube placement. This patient has not been able to swallow secondary to underlying comorbidity and stroke. The patient is nonverbal and does not offer any additional surgery. PAST MEDICAL AND SURGICAL HISTORY: As listed in the HPI with the addition of aortic stenosis, CHF, DVT, ALLERGIES: PROPOFOL. SOCIAL HISTORY: Does not smoke, drink, or use drugs. FAMILY HISTORY: Noncontributory. REVIEW OF SYSTEMS: Unable to obtain secondary to underlying CVA. MEDICATIONS: Reviewed including albuterol, amlodipine, atorvastatin, clopidogrel, Pepcid, labetalol, ursodiol, valsartan. PHYSICAL EXAMINATION: Vital Signs: Temperature max from the is 100.7, presently 98.4, pulse 100, blood pressure 150/80, respiratory rate 12, and pulse oximetry 100% on room air. General: No acute distress. HEENT: Anicteric sclera. Cardiovascular: S1 and S2. Regular, rate, and rhythm. Lungs: Bilaterally clear anteriorly with auscultation. Abdomen: Soft and nontender. No surgical scar. Extremities: Without edema. LABORATORY DATA: White blood cell count 12.7, hemoglobin 10, hematocrit 31, MCV 97, platelet count 326. INR 1. Sodium 151, potassium 3.2, BUN 33, creatinine 3.7. Lactic acid was not drawn today. Total bilirubin 0.4, AST 56, ALT 32, alkaline phosphatase 146. COVID testing is negative from the . She had a chest x-ray on the which revealed the NG tube in the tip of the stomach. IMPRESSION: Dysphagia secondary to underlying cerebrovascular accident. PLAN: Continue with NG tube feeds. Full aspiration precaution. Correct electrolyte abnormalities. I reached out to the family at 2 separate numbers with no response today regarding the risk and benefit of potential percutaneous gastrostomy tube placement. We will try to get in contact with the family once again tomorrow. For now, palliative care should be involved with the case regarding goals of care and a family meeting. We will follow up with the family regarding further management of this patient. DO SHAWANDA QUIJANO/[id number]
[2020-01-22] MEDS: COLLAGENASE CLOSTRIDIUM HIST. 30 GRAMS TUBE TP SCH (10:11)
[2020-01-22] MEDS: CLOPIDOGREL BISULFATE 75 MG TABLET (FP) PO SCH (10:11)
[2020-01-22] MEDS: SODIUM CHLORIDE 1,000 ML IV SCH (10:12)
--- NOTE | 2020-01-22 10:25 | PN ---
Progress Note, Physician History of Present Illness: Pt seen/ examined chart reviewed d/w Rn also poorly responsive to painful stimuli All f/u noted Peg to be planned per family wishes - Current Medication List Current Medications: Active Medications Acetaminophen (Tylenol -) 650 mg PO Q6H PRN PRN Reason: Fever Or Pain Atorvastatin Calcium (Lipitor -) 40 mg PO HS [facility] Last Admin: 01/21/20 22:24 Dose: 40 mg Documented by: Clopidogrel Bisulfate (Plavix -) 75 mg PO DAILY [facility] Last Admin: 01/21/20 10:01 Dose: 75 mg Documented by: Collagenase (Santyl -) 1 applic TP DAILY JOSE; Protocol Last Admin: 01/21/20 09:57 Dose: 1 applic Documented by: Piperacillin Sod/Tazobactam (Sod 2.25 gm/ Dextrose) 50 mls @ 100 mls/hr IVPB Q8H-IV JOSE; Protocol Last Admin: 01/22/20 02:13 Dose: 100 mls/hr Documented by: Sodium Chloride (Normal Saline -) 1,000 mls @ 50 mls/hr IV ASDIR [facility] Last Admin: 01/21/20 09:57 Dose: 50 mls/hr Documented by: Insulin Aspart (Novolog Vial Sliding Scale -) 1 vial SQ ACHS [facility]; Protocol Last Admin: 01/22/20 06:31 Dose: 3 units Documented by: - Objective Vital Signs: Vital Signs Temperature 98.5 F 01/22/20 06:59 Pulse Rate 123 H 01/22/20 06:59 Respiratory Rate 20 01/22/20 06:59 Blood Pressure 159/86 01/22/20 06:59 O2 Sat by Pulse Oximetry (%) 97 01/21/20 22:00 Constitutional: Yes: Other (poorly responsive) Neck: Yes: Supple Cardiovascular: Yes: Regular Rate and Rhythm Respiratory: Yes: Diminished Gastrointestinal: Yes: Soft Labs: CBC, BMP 01/18/20 06:10 01/18/20 06:10 INR, PTT INR 1.02 (0.83-1.09) 01/14/20 20:10 Problem List - Problems (1) Stroke Code(s): I63.9 - CEREBRAL INFARCTION, UNSPECIFIED (2) Pneumonia, aspiration Code(s): J69.0 - PNEUMONITIS DUE TO INHALATION OF FOOD AND VOMIT (3) Diabetes Code(s): E11.9 - TYPE 2 DIABETES MELLITUS WITHOUT COMPLICATIONS (4) ESRD on dialysis Code(s): N18.6 - END STAGE RENAL DISEASE; Z99.2 - DEPENDENCE ON RENAL DIALYSIS Assessment/Plan A/P Acute right temporoparietal infarct -- Large MCA aspiration pneumonia ESRD -HD NG feeding CONTINUE PRESENT CARE ABX PALLIATIVE CARE following PEg to be planned Prognosis poor Pt is DNR Labs ordered Will follow
--- NOTE | 2020-01-22 11:29 | PN ---
Progress Note (short form) - Note Progress Note: RENAL pt is being monitored in telemetry Has been found to have a large mca stroke with some deviation but neurosurgery declines intervention today appears status quo I ordered hd for today but due to logistical issues she wont be able to get dialyzed Last Vital Signs Temp Pulse Resp BP Pulse Ox 98.8 F 98 H 19 140/79 96 01/22/20 10:00 01/22/20 10:00 01/22/20 10:00 01/22/20 10:00 01/22/20 10:00 lungs clear cvs s1s2 rr abd soft ext no edema neuro unresponsive CBC, BMP 01/18/20 06:10 01/18/20 06:10 Current Medications Generic Name Dose Route Start Last Admin Trade Name Freq PRN Reason Stop Dose Admin Acetaminophen 650 mg 01/17/20 06:23 Tylenol - PO Q6H PRN Fever Or Pain Atorvastatin Calcium 40 mg 01/15/20 22:00 01/21/20 22:24 Lipitor - PO 40 mg HS JOSE Administration Clopidogrel Bisulfate 75 mg 01/18/20 10:00 01/22/20 10:11 Plavix - PO 75 mg DAILY JOSE Administration Collagenase 1 applic 01/19/20 10:45 01/22/20 10:11 Santyl - TP 1 applic DAILY JOSE Administration Protocol Piperacillin Sod/Tazobactam 50 mls @ 100 mls/hr 01/15/20 18:45 01/22/20 10:11 Sod 2.25 gm/ Dextrose IVPB 100 mls/hr Q8H-IV JOSE Administration Protocol Sodium Chloride 1,000 mls @ 50 mls/hr 01/17/20 09:02 01/22/20 10:12 Normal Saline - IV Not Given ASDIR JOSE Insulin Aspart 1 vial 01/17/20 22:15 01/22/20 06:31 Novolog Vial Sliding Scale - SQ 3 units ACHS JOSE Administration Protocol IMPRESSION esrd htn s/p cva x 2 hypokalemia covid 19 neg PLAN would repeat labs again tomorrow will write orders continue other management MV
--- NOTE | 2020-01-22 11:37 | PN ---
Progress Note, Physician Chief Complaint: UNRESPONSIVE LOW GRADE TEMP BREATHING NON-LABORED WBC SL ELEVATED BC NO GROWTH - Current Medication List Current Medications: Active Medications Acetaminophen (Tylenol -) 650 mg PO Q6H PRN PRN Reason: Fever Or Pain Atorvastatin Calcium (Lipitor -) 40 mg PO HS [facility] Last Admin: 01/21/20 22:24 Dose: 40 mg Documented by: Clopidogrel Bisulfate (Plavix -) 75 mg PO DAILY [facility] Last Admin: 01/22/20 10:11 Dose: 75 mg Documented by: Collagenase (Santyl -) 1 applic TP DAILY JOSE; Protocol Last Admin: 01/22/20 10:11 Dose: 1 applic Documented by: Piperacillin Sod/Tazobactam (Sod 2.25 gm/ Dextrose) 50 mls @ 100 mls/hr IVPB Q8H-IV JOSE; Protocol Last Admin: 01/22/20 10:11 Dose: 100 mls/hr Documented by: Sodium Chloride (Normal Saline -) 1,000 mls @ 50 mls/hr IV ASDIR [facility]SE Last Admin: 01/22/20 10:12 Dose: Not Given Documented by: Insulin Aspart (Novolog Vial Sliding Scale -) 1 vial SQ ACHS JOSE; Protocol Last Admin: 01/22/20 06:31 Dose: 3 units Documented by: - Objective Vital Signs: Vital Signs Temperature 98.8 F 01/22/20 10:00 Pulse Rate 98 H 01/22/20 10:00 Respiratory Rate 19 01/22/20 10:00 Blood Pressure 140/79 01/22/20 10:00 O2 Sat by Pulse Oximetry (%) 96 01/22/20 10:00 Eyes: Yes: Conjunctiva Clear Cardiovascular: Yes: Regular Rate and Rhythm, S1 Respiratory: Yes: Diminished Gastrointestinal: Yes: Soft, Abdomen, Obese. No: Tenderness Labs: CBC, BMP 01/18/20 06:10 01/18/20 06:10 INR, PTT INR 1.02 (0.83-1.09) 01/14/20 20:10 Assessment/Plan S/P ACUTE CVA ALTERED MENTATION PROBABLE ASP RLL PNEUMONIA ESRD FEVER/ LEUKOCYTOSIS OBS CONTINUE EMPIRIC ZOSYN FOR FEEDING TUBE- WILL SWITCH TO ANTIBIOTICS VIA GT WHEN PLACED VENTILATORY SUPPORT PROGNOSIS POOR
--- NOTE | 2020-01-22 13:57 | PN ---
Progress Note (short form) - Note Progress Note: Poorly responsive. No intervention due to poor overall outcome. No acute events overnight. Intake & Output 01/19/20 01/20/20 01/21/20 01/22/20 23:59 23:59 23:59 23:59 Intake Total 1660 2440 1750 630 Output Total 1800 Balance 1682 486 9684 630 Weight 94 lb 0.4 oz 92 lb 0.4 oz Last Vital Signs Temp Pulse Resp BP Pulse Ox 99.4 F 99 H 19 149/78 100 01/22/20 13:42 01/22/20 13:42 01/22/20 13:42 01/22/20 13:42 01/22/20 13:42 Active Medications Acetaminophen (Tylenol -) 650 mg PO Q6H PRN PRN Reason: Fever Or Pain Atorvastatin Calcium (Lipitor -) 40 mg PO HS [facility] Last Admin: 01/21/20 22:24 Dose: 40 mg Documented by: Clopidogrel Bisulfate (Plavix -) 75 mg PO DAILY [facility] Last Admin: 01/22/20 10:11 Dose: 75 mg Documented by: Collagenase (Santyl -) 1 applic TP DAILY [facility]; Protocol Last Admin: 01/22/20 10:11 Dose: 1 applic Documented by: Piperacillin Sod/Tazobactam (Sod 2.25 gm/ Dextrose) 50 mls @ 100 mls/hr IVPB Q8H-IV [facility]; Protocol Last Admin: 01/22/20 10:11 Dose: 100 mls/hr Documented by: Sodium Chloride (Normal Saline -) 1,000 mls @ 50 mls/hr IV ASDIR [facility] Last Admin: 01/22/20 10:12 Dose: Not Given Documented by: Insulin Aspart (Novolog Vial Sliding Scale -) 1 vial SQ ACHS [facility]; Protocol Last Admin: 01/22/20 11:36 Dose: 2 units Documented by: Constitutional: Yes: Poorly responsive, NAD HENT: Yes: WNL Neck: Yes: WNL Cardiovascular: Yes: Regular Rate and Rhythm, S1, S2 Respiratory: Yes: Diminished Gastrointestinal: Yes: Normal Bowel Sounds, Soft Extremities: Yes: WNL Edema: No Labs: Problem List - Problems (1) Altered mental status Code(s): R41.82 - ALTERED MENTAL STATUS, UNSPECIFIED (2) Pneumonia, aspiration Code(s): J69.0 - PNEUMONITIS DUE TO INHALATION OF FOOD AND VOMIT (3) Stroke Code(s): I63.9 - CEREBRAL INFARCTION, UNSPECIFIED (4) Hypertension Code(s): I10 - ESSENTIAL (PRIMARY) HYPERTENSION (5) ESRD on dialysis Code(s): N18.6 - END STAGE RENAL DISEASE; Z99.2 - DEPENDENCE ON RENAL DIALYSIS Assessment/Plan Acute CVA : poor overall outcome for intervention Pneumonia likely Aspiration ESRD on HD HTN DM Hyperlipidemia h/o CVA - ABX - aspiration precautions - O2 to keep SpO2 >90% - VTE prophylaxis - poor prognosis - GOC being discussed Dr Alonzo
--- NOTE | 2020-01-22 16:18 | PN ---
Progress Note (short form) - Note Progress Note: Per Dr. Hernandez's note from today, family want G tube placed. Would consider IR placement of gastrostomy. Consult placed for Dr. Peng.
--- NOTE | 2020-01-22 16:32 | PN ---
Progress Note (short form) - Note Progress Note: 74 year old female brought patient from [place] for unreponsivness for two days prior to admission. Patient has history of stroke three months ago and has been decline since than. Patinet has been awake two days agoa and slowly became aphasic and unreponsive. Patient has no seizure, she has high wbc and suspected to have aspiration pneumonia. Patient has large right mca cerebral edema. She is intubated and not on any sedation and no reponse to painful stimuli her nih score was 33 and she was out of window for tpa on arriaval.Patient is still unreponsive. no seizure like activity. repeat ct head showed there is interval change with midline shift due to cerebral edema on right side Patient remains unreponsive, peg tube is being planned NEUROLOGICAL EXAMINATION comatose and very minimal response to painfl stimuli neck is supple afebrile pupils is small sluggsihly reactive gag and corneal reflex is present bp is maintained ct head showed large right mca cerebral edema repeat ct head on january 16 showed interval change Assessment/Plan 1. Lare right mca acute stroke with aspiriation pneumoia ,came with unreponsiveness, patient has old left mca stroke now she has bihemispheric stroke with minimal reponsivness, no seizure , no fever , wbc remain high Plan: prongnosis is poor - peg tube is being planned - continue antiplatelet and statin - abx for aspiration pneumonia as Per ID dvt prophylaxis, Pippa sol so much Norman Plascencia MD
[2020-01-22] MEDS: ATORVASTATIN CA 40 MG TABLET (FP) PO SCH (21:28)
[2020-01-23] MEDS ORDERED: PIPERACILLIN/TAZOBACTAM 2.25 GM VIAL IVPB ONE ×3 (01:08→16:25)
[2020-01-23] MEDS ORDERED: DEXTROSE 5%-WATER - 50 ML IVPB ONE ×3 (01:08→16:25)
[2020-01-23] MEDS: SODIUM CHLORIDE 1,000 ML IV SCH ×2 (02:50→10:41)
[2020-01-23] MEDS: PIPERACILLIN/TAZOB 2.25 GM 2.25 GM in DEXTROSE 5%-WATER - 50 ML IVPB SCH ×3 (02:51→17:12)
[2020-01-23] MEDS: INSULIN SLIDING SCALE (NOVOLOG) 1 VIAL SQ SCH ×4 (06:19→21:56)
--- NOTE | 2020-01-23 09:53 | PN ---
Progress Note, Physician History of Present Illness: pulmonary unresponsive,-resp distress - Current Medication List Current Medications: Active Medications Acetaminophen (Tylenol -) 650 mg PO Q6H PRN PRN Reason: Fever Or Pain Atorvastatin Calcium (Lipitor -) 40 mg PO HS [facility] Last Admin: 01/22/20 21:28 Dose: 40 mg Documented by: Clopidogrel Bisulfate (Plavix -) 75 mg PO DAILY [facility] Last Admin: 01/22/20 10:11 Dose: 75 mg Documented by: Collagenase (Santyl -) 1 applic TP DAILY JOSE; Protocol Last Admin: 01/22/20 10:11 Dose: 1 applic Documented by: Piperacillin Sod/Tazobactam (Sod 2.25 gm/ Dextrose) 50 mls @ 100 mls/hr IVPB Q8H-IV JOSE; Protocol Last Admin: 01/23/20 02:51 Dose: 100 mls/hr Documented by: Sodium Chloride (Normal Saline -) 1,000 mls @ 50 mls/hr IV ASDIR JOSE Last Admin: 01/23/20 02:50 Dose: 50 mls/hr Documented by: Insulin Aspart (Novolog Vial Sliding Scale -) 1 vial SQ ACHS JOSE; Protocol Last Admin: 01/23/20 06:19 Dose: 3 units Documented by: - Objective Vital Signs: Vital Signs Temperature 99.3 F 01/23/20 08:30 Pulse Rate 102 H 01/23/20 08:30 Respiratory Rate 18 01/23/20 08:30 Blood Pressure 161/74 01/23/20 08:30 O2 Sat by Pulse Oximetry (%) 100 01/23/20 08:31 Constitutional: Yes: Well Nourished, Other (unresponsive) Eyes: Yes: WNL HENT: Yes: WNL Neck: Yes: WNL Cardiovascular: Yes: Regular Rate and Rhythm, S1, S2 Respiratory: Yes: Diminished Gastrointestinal: Yes: Normal Bowel Sounds, Soft Extremities: Yes: WNL Edema: No Labs: Problem List - Problems (1) Altered mental status Code(s): R41.82 - ALTERED MENTAL STATUS, UNSPECIFIED (2) Pneumonia, aspiration Code(s): J69.0 - PNEUMONITIS DUE TO INHALATION OF FOOD AND VOMIT (3) Stroke Code(s): I63.9 - CEREBRAL INFARCTION, UNSPECIFIED (4) Hypertension Code(s): I10 - ESSENTIAL (PRIMARY) HYPERTENSION (5) ESRD on dialysis Code(s): N18.6 - END STAGE RENAL DISEASE; Z99.2 - DEPENDENCE ON RENAL DIALYSIS Assessment/Plan A/P Acute CVA Pneumonia likely Aspiration ESRD on HD HTN DM Hyperlipidemia h/o CVA - continue antibiotics - aspiration precautions - O2 to keep SpO2 >90% - statin, plavix - DVT prophylaxis - poor prognosis DR RAMIREZ
[2020-01-23] MEDS ORDERED: SODIUM CHLORIDE 250 ML IV PRN ×2 (10:04→10:08)
[2020-01-23] MEDS: COLLAGENASE CLOSTRIDIUM HIST. 30 GRAMS TUBE TP SCH (10:41)
[2020-01-23] MEDS: CLOPIDOGREL BISULFATE 75 MG TABLET (FP) PO SCH (10:41)
--- NOTE | 2020-01-23 13:06 | PN ---
Progress Note (short form) - Note Progress Note: non verbal events noted lethargic opens eyes to painful stimuli Vital Signs - 24 hr 01/22/20 01/22/20 01/22/20 13:42 18:00 21:00 Temperature 99.4 F 97.9 F Pulse Rate 99 H 94 H Respiratory 19 20 Rate Blood Pressure 149/78 134/68 O2 Sat by Pulse 100 99 Oximetry (%) 01/22/20 01/23/20 01/23/20 22:10 02:00 06:00 Temperature 99 F 98.8 F 98.9 F Pulse Rate 102 H 96 H 102 H Respiratory 20 19 20 Rate Blood Pressure 147/75 169/91 152/70 O2 Sat by Pulse 99 Oximetry (%) 01/23/20 01/23/20 01/23/20 08:30 08:31 12:10 Temperature 99.3 F 99.1 F Pulse Rate 102 H 114 H Respiratory 18 18 Rate Blood Pressure 161/74 188/109 H O2 Sat by Pulse 100 100 Oximetry (%) 01/23/20 01/23/20 12:15 12:45 Temperature Pulse Rate 120 H 119 H Respiratory 18 18 Rate Blood Pressure 189/118 H 161/101 H O2 Sat by Pulse Oximetry (%) Current Medications Generic Name Dose Route Start Last Admin Trade Name Freq PRN Reason Stop Dose Admin Acetaminophen 650 mg 01/17/20 06:23 Tylenol - PO Q6H PRN Fever Or Pain Atorvastatin Calcium 40 mg 01/15/20 22:00 01/22/20 21:28 Lipitor - PO 40 mg HS JOSE Administration Clopidogrel Bisulfate 75 mg 01/18/20 10:00 01/23/20 10:41 Plavix - PO 75 mg DAILY JOSE Administration Collagenase 1 applic 01/19/20 10:45 01/23/20 10:41 Santyl - TP 1 applic DAILY JOSE Administration Protocol Piperacillin Sod/Tazobactam 50 mls @ 100 mls/hr 01/15/20 18:45 01/23/20 10:41 Sod 2.25 gm/ Dextrose IVPB 100 mls/hr Q8H-IV JOSE Administration Protocol Sodium Chloride 1,000 mls @ 50 mls/hr 01/17/20 09:02 01/23/20 10:41 Normal Saline - IV 50 mls/hr ASDIR JOSE Administration Sodium Chloride 250 mls @ 3,000 mls/hr 01/23/20 10:08 Normal Saline - IV PRN PRN Hypotension during Dialysis Insulin Aspart 1 vial 01/17/20 22:15 01/23/20 11:34 Novolog Vial Sliding Scale - SQ 2 units ACHS JOSE Administration Protocol Laboratory Results - last 24 hr 01/22/20 01/23/20 16:51 05:56 POC Glucometer 151 218 S1 S2 RRR Lungs decreased Abd- soft, NT No edema awake, not responding to questions A/P Acute right temporoparietal infarct previous CVA ESRD on HD aspiration pneumonia --- maintaining airway on Nasal canula -- NG feeding -- CT head repeat shows worsening edema, infarct -- on iv antibiotics -- poor prognosis --- continue with meds -- palliative care eval -- chance of meaningful recovery is poor -- GI eval noted, for IR to placepeg tube -- will hold off plavix Problem List - Problems (1) Altered mental status Code(s): R41.82 - ALTERED MENTAL STATUS, UNSPECIFIED (2) Lactic acidosis Code(s): E87.2 - ACIDOSIS (3) Pneumonia, aspiration Code(s): J69.0 - PNEUMONITIS DUE TO INHALATION OF FOOD AND VOMIT (4) Stroke Code(s): I63.9 - CEREBRAL INFARCTION, UNSPECIFIED (5) ESRD on dialysis Code(s): N18.6 - END STAGE RENAL DISEASE; Z99.2 - DEPENDENCE ON RENAL DIALYSIS (6) Hypertension Code(s): I10 - ESSENTIAL (PRIMARY) HYPERTENSION
[2020-01-23 13:12] LABS: BASO % 0.5 % (0-2.0); EOS % 2.1 % (0-4.5); HEMATOCRIT 32.6 % (32.4-45.2); HEMOGLOBIN 10.3 GM/dL (10.7-15.3); LYMPH % 10.5 % (8-40); MCH 30.8 pg (25.7-33.7); MCHC 31.5 g/dl (32.0-36.0); MEAN CELL VOLUME 97.9 fl (80-96); MEAN PLT VOLUME 9.6 fl (7.5-11.1); MONO % 6.1 % (3.8-10.2); NEUT % 80.8 % (42.8-82.8); PLATELET COUNT 354 K/MM3 (134-434); RBC 3.33 M/mm3 (3.60-5.2); RDW 20.1 % (11.6-15.6); WHITE BLOOD COUNT 14.5 K/mm3 (4.0-10.0)
[2020-01-23 13:23] LABS: INR 1.11 (0.83-1.09); PROTHROMBIN TIME (PATIENT) 13.1 SEC (9.7-13.0)
[2020-01-23 13:38] LABS: ALBUMIN 1.4 g/dl (3.4-5.0); BILIRUBIN,TOTAL 0.3 mg/dL (0.2-1); BLOOD UREA NITROGEN 52.7 mg/dL (7-18); CALCIUM 8.2 mg/dL (8.5-10.1); CREATININE 5.1 mg/dL (0.55-1.3); PHOSPHOROUS 3.6 mg/dL (2.5-4.9); POTASSIUM 4.6 mmol/L (3.5-5.1); TOT PROT 5.8 g/dl (6.4-8.2)
--- NOTE | 2020-01-23 18:22 | PN ---
Progress Note (short form) - Note Progress Note: RENAL pt is being monitored in telemetry Has been found to have a large mca stroke with some deviation but neurosurgery declines intervention today appears status quo was dialyzed today without problems, i ordered pre hd blood work Last Vital Signs Temp Pulse Resp BP Pulse Ox 99.1 F 111 H 18 132/83 100 01/23/20 12:10 01/23/20 15:20 01/23/20 15:20 01/23/20 15:20 01/23/20 08:31 lungs clear cvs s1s2 rr abd soft ext upper ext edema neuro unresponsive CBC, BMP 01/23/20 12:25 01/23/20 12:25 Current Medications Generic Name Dose Route Start Last Admin Trade Name Freq PRN Reason Stop Dose Admin Acetaminophen 650 mg 01/17/20 06:23 Tylenol - PO Q6H PRN Fever Or Pain Atorvastatin Calcium 40 mg 01/15/20 22:00 01/22/20 21:28 Lipitor - PO 40 mg HS JOSE Administration Collagenase 1 applic 01/19/20 10:45 01/23/20 10:41 Santyl - TP 1 applic DAILY JOSE Administration Protocol Enalapril Maleate 10 mg 01/24/20 10:00 Vasotec - PO DAILY JOSE Piperacillin Sod/Tazobactam 50 mls @ 100 mls/hr 01/15/20 18:45 01/23/20 17:12 Sod 2.25 gm/ Dextrose IVPB 100 mls/hr Q8H-IV JOSE Administration Protocol Sodium Chloride 250 mls @ 3,000 mls/hr 01/23/20 10:08 Normal Saline - IV PRN PRN Hypotension during Dialysis Insulin Aspart 1 vial 01/17/20 22:15 01/23/20 16:44 Novolog Vial Sliding Scale - SQ Not Given ACHS JOSE Protocol IMPRESSION esrd htn s/p cva x 2 hypokalemia covid 19 neg hypernatremia PLAN would consider increasing free water contiue feeding palliative care consult might be useful to help with end of life care MV
[2020-01-23] MEDS: ATORVASTATIN CA 40 MG TABLET (FP) PO SCH (21:53)
--- NOTE | 2020-01-23 23:05 | PN ---
Progress Note (short form) - Note Progress Note: 74 year old female brought patient from [place] for unreponsivness for two days prior to admission. Patient has history of stroke three months ago and has been decline since than. Patinet has been awake two days agoa and slowly became aphasic and unreponsive. Patient has no seizure, she has high wbc and suspected to have aspiration pneumonia. Patient has large right mca cerebral edema. still waiting for peg tube placement, patient is stable. NEUROLOGICAL EXAMINATION comatose and very minimal response to painfl stimuli neck is supple afebrile pupils is small sluggsihly reactive gag and corneal reflex is present bp is maintained ct head showed large right mca cerebral edema repeat ct head on january 16 showed interval change Assessment/Plan 1. Lare right mca acute stroke with aspiriation pneumoia ,came with unreponsiveness, patient has old left mca stroke now she has bihemispheric stroke with minimal reponsivness, no seizure , no fever , wbc remain high Plan: prongnosis is poor - peg tube is being planned - continue antiplatelet and statin dvt prophylaxis, Pippa sol so much Norman Plascencia MD
[2020-01-24] MEDS ORDERED: DEXTROSE 5%-WATER - 50 ML IVPB ONE ×3 (01:20→17:18)
[2020-01-24] MEDS ORDERED: PIPERACILLIN/TAZOBACTAM 2.25 GM VIAL IVPB ONE ×3 (01:20→17:17)
[2020-01-24] MEDS: PIPERACILLIN/TAZOB 2.25 GM 2.25 GM in DEXTROSE 5%-WATER - 50 ML IVPB SCH ×3 (02:00→17:19)
[2020-01-24] MEDS: INSULIN SLIDING SCALE (NOVOLOG) 1 VIAL SQ SCH ×4 (06:41→21:46)
[2020-01-24] MEDS: ENALAPRIL MALEATE 10 MG TABLET (FP) PO SCH (10:35)
[2020-01-24] MEDS: COLLAGENASE CLOSTRIDIUM HIST. 30 GRAMS TUBE TP SCH (10:35)
--- NOTE | 2020-01-24 11:56 | PN ---
Progress Note, Physician History of Present Illness: PULMONARY NO CHANGE,UNRESPONSIVE ON NASAL O2,SATTING WELL. FEBRILE - Current Medication List Current Medications: Active Medications Acetaminophen (Tylenol -) 650 mg PO Q6H PRN PRN Reason: Fever Or Pain Last Admin: 01/24/20 11:16 Dose: 650 mg Documented by: Atorvastatin Calcium (Lipitor -) 40 mg PO HS [facility] Last Admin: 01/23/20 21:53 Dose: 40 mg Documented by: Collagenase (Santyl -) 1 applic TP DAILY [facility]; Protocol Last Admin: 01/24/20 10:35 Dose: 1 applic Documented by: Enalapril Maleate (Vasotec -) 10 mg PO DAILY [facility] Last Admin: 01/24/20 10:35 Dose: 10 mg Documented by: Piperacillin Sod/Tazobactam (Sod 2.25 gm/ Dextrose) 50 mls @ 100 mls/hr IVPB Q8H-IV [facility]; Protocol Last Admin: 01/24/20 10:34 Dose: 100 mls/hr Documented by: Sodium Chloride (Normal Saline -) 250 mls @ 3,000 mls/hr IV PRN PRN PRN Reason: Hypotension during Dialysis Insulin Aspart (Novolog Vial Sliding Scale -) 1 vial SQ ACHS [facility]; Protocol Last Admin: 01/24/20 11:16 Dose: 2 units Documented by: - Objective Vital Signs: Vital Signs Temperature 101.1 F H 01/24/20 10:00 Pulse Rate 109 H 01/24/20 10:00 Respiratory Rate 18 01/24/20 10:00 Blood Pressure 129/68 01/24/20 10:00 O2 Sat by Pulse Oximetry (%) 99 01/24/20 10:00 Constitutional: Yes: Thin, Other (UNRESPONSIVE) Eyes: Yes: WNL HENT: Yes: WNL Neck: Yes: WNL Cardiovascular: Yes: Regular Rate and Rhythm, S1, S2 Respiratory: Yes: Diminished Gastrointestinal: Yes: Normal Bowel Sounds, Soft Extremities: Yes: WNL Edema: No Labs: CBC, BMP 01/23/20 12:25 Problem List - Problems (1) Altered mental status Code(s): R41.82 - ALTERED MENTAL STATUS, UNSPECIFIED (2) Pneumonia, aspiration Code(s): J69.0 - PNEUMONITIS DUE TO INHALATION OF FOOD AND VOMIT (3) Stroke Code(s): I63.9 - CEREBRAL INFARCTION, UNSPECIFIED (4) Hypertension Code(s): I10 - ESSENTIAL (PRIMARY) HYPERTENSION (5) ESRD on dialysis Code(s): N18.6 - END STAGE RENAL DISEASE; Z99.2 - DEPENDENCE ON RENAL DIALYSIS Assessment/Plan A/P Acute CVA Pneumonia likely Aspiration ESRD on HD HTN DM Hyperlipidemia h/o CVA Fever - antibiotics aas per ID - aspiration precautions - O2 to keep SpO2 >90% - statin, plavix - DVT prophylaxis - poor prognosis - chest x-ray today DR RAMIREZ
--- NOTE | 2020-01-24 15:14 | PN ---
Progress Note (short form) - Note Progress Note: non verbal spiked temp this AM events noted lethargic opens eyes to painful stimuli Vital Signs - 24 hr 01/23/20 01/23/20 01/23/20 18:00 21:00 22:00 Temperature 97.4 F L 97.7 F Pulse Rate 101 H 104 H Respiratory 20 20 Rate Blood Pressure 135/81 143/78 O2 Sat by Pulse 96 96 Oximetry (%) 01/24/20 01/24/20 01/24/20 02:00 06:00 10:00 Temperature 99.5 F 99.7 F H 101.1 F H Pulse Rate 105 H 121 H 109 H Respiratory 19 20 18 Rate Blood Pressure 156/82 159/86 129/68 O2 Sat by Pulse 99 Oximetry (%) 01/24/20 14:32 Temperature 100.9 F H Pulse Rate 116 H Respiratory 18 Rate Blood Pressure 124/78 O2 Sat by Pulse 96 Oximetry (%) Current Medications Generic Name Dose Route Start Last Admin Trade Name Freq PRN Reason Stop Dose Admin Acetaminophen 650 mg 01/17/20 06:23 01/24/20 11:16 Tylenol - PO 650 mg Q6H PRN Administration Fever Or Pain Atorvastatin Calcium 40 mg 01/15/20 22:00 01/23/20 21:53 Lipitor - PO 40 mg HS JO[facility] Administration Collagenase 1 applic 01/19/20 10:45 01/24/20 10:35 Santyl - TP 1 applic DAILY [facility] Administration Protocol Enalapril Maleate 10 mg 01/24/20 10:00 01/24/20 10:35 Vasotec - PO 10 mg DAILY [facility] Administration Piperacillin Sod/Tazobactam 50 mls @ 100 mls/hr 01/15/20 18:45 01/24/20 10:34 Sod 2.25 gm/ Dextrose IVPB 100 mls/hr Q8H-IV [facility] Administration Protocol Sodium Chloride 250 mls @ 3,000 mls/hr 01/23/20 10:08 Normal Saline - IV PRN PRN Hypotension during Dialysis Insulin Aspart 1 vial 01/17/20 22:15 01/24/20 11:16 Novolog Vial Sliding Scale - SQ 2 units ACHS JOSE Administration Protocol Laboratory Results - last 24 hr 01/23/20 01/23/20 01/24/20 16:39 21:55 11:16 POC Glucometer 145 215 151 S1 S2 RRR Lungs decreased Abd- soft, NT No edema awake, not responding to questions A/P Acute right temporoparietal infarct previous CVA ESRD on HD aspiration pneumonia --- maintaining airway on Nasal canula -- NG feeding -- CT head repeat shows worsening edema, infarct -- on iv antibiotics -- reculture -- no diarrhea -- poor prognosis --- continue with meds -- palliative care eval -- chance of meaningful recovery is poor -- GI eval noted, for IR to place peg tube -- will hold off plavix Problem List - Problems (1) Altered mental status Code(s): R41.82 - ALTERED MENTAL STATUS, UNSPECIFIED (2) Lactic acidosis Code(s): E87.2 - ACIDOSIS (3) Pneumonia, aspiration Code(s): J69.0 - PNEUMONITIS DUE TO INHALATION OF FOOD AND VOMIT (4) Stroke Code(s): I63.9 - CEREBRAL INFARCTION, UNSPECIFIED (5) ESRD on dialysis Code(s): N18.6 - END STAGE RENAL DISEASE; Z99.2 - DEPENDENCE ON RENAL DIALYSIS (6) Hypertension Code(s): I10 - ESSENTIAL (PRIMARY) HYPERTENSION
[2020-01-24] MEDS: ATORVASTATIN CA 40 MG TABLET (FP) PO SCH (21:46)
--- NOTE | 2020-01-24 23:06 | PN ---
Progress Note (short form) - Note Progress Note: 74 year old female brought patient from [place] for unreponsivness for two days prior to admission. Patient has history of stroke three months ago and has been decline since than. Patinet has been awake two days agoa and slowly became aphasic and unreponsive. Patient has no seizure, she has high wbc and suspected to have aspiration pneumonia. Patient has large right mca cerebral edema. still unreponsive, spikes fever today, aspiration penumonia NEUROLOGICAL EXAMINATION comatose and very minimal response to painfl stimuli neck is supple afebrile pupils is small sluggsihly reactive gag and corneal reflex is present bp is maintained ct head showed large right mca cerebral edema repeat ct head on january 16 showed interval change Assessment/Plan 1. Lare right mca acute stroke with aspiriation pneumoia ,came with unreponsiveness, patient has old left mca stroke now she has bihemispheric stroke with minimal reponsivness, no seizure , no fever , wbc remain high Plan: prongnosis is poor - continue abx - continue antiplatelet and statin dvt prophylaxis, Pippa sol so much Norman Plascencia MD
[2020-01-25] MEDS ORDERED: PIPERACILLIN/TAZOBACTAM 2.25 GM VIAL IVPB ONE ×3 (00:52→16:53)
[2020-01-25] MEDS ORDERED: DEXTROSE 5%-WATER - 50 ML IVPB ONE ×3 (00:52→16:53)
[2020-01-25] MEDS: PIPERACILLIN/TAZOB 2.25 GM 2.25 GM in DEXTROSE 5%-WATER - 50 ML IVPB SCH ×3 (01:06→17:02)
[2020-01-25] MEDS: INSULIN SLIDING SCALE (NOVOLOG) 1 VIAL SQ SCH ×4 (06:31→22:08)
[2020-01-25 09:54] LABS: HEMATOCRIT 30.5 % (32.4-45.2); HEMOGLOBIN 9.7 GM/dL (10.7-15.3); MCH 31.4 pg (25.7-33.7); MCHC 31.8 g/dl (32.0-36.0); MEAN CELL VOLUME 98.5 fl (80-96); MEAN PLT VOLUME 9.8 fl (7.5-11.1); PLATELET COUNT 349 K/MM3 (134-434); RBC 3.09 M/mm3 (3.60-5.2); RDW 20.1 % (11.6-15.6); WHITE BLOOD COUNT 14.3 K/mm3 (4.0-10.0)
[2020-01-25 10:13] LABS: BLOOD UREA NITROGEN 43.6 mg/dL (7-18); CALCIUM 8.1 mg/dL (8.5-10.1); CREATININE 4.1 mg/dL (0.55-1.3); POTASSIUM 4.9 mmol/L (3.5-5.1)
[2020-01-25] MEDS ORDERED: SODIUM CHLORIDE 250 ML IV PRN ×2 (10:29→10:30)
--- NOTE | 2020-01-25 10:29 | PN ---
Progress Note (short form) - Note Progress Note: RENAL Being dialyzed currently no apparent changes Last Vital Signs Temp Pulse Resp BP Pulse Ox 98.6 F 109 H 21 H 120/71 96 01/25/20 10:00 01/25/20 10:00 01/25/20 10:00 01/25/20 10:00 01/25/20 10:00 lungs clear cvs s1s2 rr abd soft ext upper ext edema neuro unresponsive CBC, BMP 01/25/20 08:40 01/25/20 08:40 Current Medications Generic Name Dose Route Start Last Admin Trade Name Freq PRN Reason Stop Dose Admin Acetaminophen 650 mg 01/17/20 06:23 01/24/20 11:16 Tylenol - PO 650 mg Q6H PRN Administration Fever Or Pain Atorvastatin Calcium 40 mg 01/15/20 22:00 01/24/20 21:46 Lipitor - PO 40 mg HS JOSE Administration Collagenase 1 applic 01/19/20 10:45 01/24/20 10:35 Santyl - TP 1 applic DAILY JOSE Administration Protocol Enalapril Maleate 10 mg 01/24/20 10:00 01/24/20 10:35 Vasotec - PO 10 mg DAILY JOSE Administration Piperacillin Sod/Tazobactam 50 mls @ 100 mls/hr 01/15/20 18:45 01/25/20 01:06 Sod 2.25 gm/ Dextrose IVPB 100 mls/hr Q8H-IV JOSE Administration Protocol Sodium Chloride 250 mls @ 3,000 mls/hr 01/23/20 10:08 Normal Saline - IV PRN PRN Hypotension during Dialysis Insulin Aspart 1 vial 01/17/20 22:15 01/25/20 06:31 Novolog Vial Sliding Scale - SQ 3 units ACHS JOSE Administration Protocol IMPRESSION esrd htn s/p cva x 2 hypokalemia resolved covid 19 neg hypernatremia PLAN no changes GOC keep on k 2 bath MV
[2020-01-25] MEDS: COLLAGENASE CLOSTRIDIUM HIST. 30 GRAMS TUBE TP SCH (12:13)
[2020-01-25] MEDS: ENALAPRIL MALEATE 10 MG TABLET (FP) PO SCH (12:13)
--- NOTE | 2020-01-25 12:59 | PN ---
Progress Note (short form) - Note Progress Note: non verbal afebrile no diarrhea events noted lethargic opens eyes to painful stimuli Vital Signs - 24 hr 01/24/20 01/24/20 01/24/20 14:32 18:00 21:00 Temperature 100.9 F H 98.4 F Pulse Rate 116 H 108 H Respiratory 18 20 Rate Blood Pressure 124/78 111/59 L O2 Sat by Pulse 96 96 100 Oximetry (%) 01/24/20 01/25/20 01/25/20 22:00 06:00 08:25 Temperature 97.5 F L 98.9 F 98.6 F Pulse Rate 100 H 112 H 108 H Respiratory 20 22 H 20 Rate Blood Pressure 116/66 118/71 135/79 O2 Sat by Pulse 95 97 Oximetry (%) 01/25/20 01/25/20 01/25/20 08:30 09:00 09:30 Temperature Pulse Rate 108 H 108 H 112 H Respiratory 20 20 20 Rate Blood Pressure 120/71 107/71 117/77 O2 Sat by Pulse Oximetry (%) 01/25/20 01/25/20 01/25/20 10:00 10:30 11:00 Temperature 98.6 F Pulse Rate 107 H 109 H 109 H Respiratory 20 20 20 Rate Blood Pressure 107/66 102/65 90/56 L O2 Sat by Pulse 96 Oximetry (%) 01/25/20 01/25/20 11:30 11:40 Temperature Pulse Rate 105 H 100 H Respiratory 20 20 Rate Blood Pressure 100/64 114/63 O2 Sat by Pulse Oximetry (%) Current Medications Generic Name Dose Route Start Last Admin Trade Name Jovanq PRN Reason Stop Dose Admin Acetaminophen 650 mg 01/17/20 06:23 01/24/20 11:16 Tylenol - PO 650 mg Q6H PRN Administration Fever Or Pain Atorvastatin Calcium 40 mg 01/15/20 22:00 01/24/20 21:46 Lipitor - PO 40 mg HS JOSE Administration Collagenase 1 applic 01/19/20 10:45 01/25/20 12:13 Santyl - TP 1 applic DAILY JOSE Administration Protocol Enalapril Maleate 10 mg 01/24/20 10:00 01/25/20 12:13 Vasotec - PO 10 mg DAILY JOSE Administration Piperacillin Sod/Tazobactam 50 mls @ 100 mls/hr 01/15/20 18:45 07/23/20 12:13 Sod 2.25 gm/ Dextrose IVPB 100 mls/hr Q8H-IV JOSE Administration Protocol Sodium Chloride 250 mls @ 3,000 mls/hr 01/25/20 10:29 Normal Saline - IV 01/26/20 10:29 PRN PRN Hypotension during Dialysis Sodium Chloride 250 mls @ 3,000 mls/hr 01/25/20 10:30 Normal Saline - IV 01/26/20 10:30 PRN PRN Hypotension during Dialysis Insulin Aspart 1 vial 01/17/20 22:15 01/25/20 12:14 Novolog Vial Sliding Scale - SQ Not Given ACHS JOSE Protocol Microbiology 01/14/20 20:10 Blood - Peripheral Venous Blood Culture - Final NO GROWTH AFTER 5 DAYS INCUBATION 01/14/20 20:10 Blood - Peripheral Venous Blood Culture - Final NO GROWTH AFTER 5 DAYS INCUBATION Laboratory Results - last 24 hr 01/22/20 01/24/20 01/25/20 11:35 21:46 06:25 WBC RBC Hgb Hct MCV MCH MCHC RDW Plt Count MPV Sodium Potassium Chloride Carbon Dioxide Anion Gap BUN Creatinine Est GFR (CKD-EPI)AfAm Est GFR (CKD-EPI)NonAf POC Glucometer 165 146 207 Random Glucose Calcium 01/25/20 01/25/20 01/25/20 08:40 08:40 12:12 WBC 14.3 H RBC 3.09 L Hgb 9.7 L Hct 30.5 L MCV 98.5 H MCH 31.4 MCHC 31.8 L RDW 20.1 H Plt Count 349 MPV 9.8 Sodium 146 H Potassium 4.9 Chloride 108 H Carbon Dioxide 32 Anion Gap 5 L BUN 43.6 H Creatinine 4.1 H Est GFR (CKD-EPI)AfAm 11.51 Est GFR (CKD-EPI)NonAf 9.93 POC Glucometer 140 Random Glucose 228 H Calcium 8.1 L S1 S2 RRR Lungs decreased Abd- soft, NT No edema awake, not responding to questions A/P Acute right temporoparietal infarct previous CVA ESRD on HD aspiration pneumonia --- maintaining airway on Nasal canula -- NG feeding -- CT head repeat shows worsening edema, infarct -- on iv antibiotics -- reculture-- pending so far -- no diarrhea -- poor prognosis --- continue with meds -- palliative care eval -- chance of meaningful recovery is poor -- GI eval noted, for IR to place peg tube -- will hold off plavix for peg tube -- wbc same Problem List - Problems (1) Altered mental status Code(s): R41.82 - ALTERED MENTAL STATUS, UNSPECIFIED (2) Lactic acidosis Code(s): E87.2 - ACIDOSIS (3) Pneumonia, aspiration Code(s): J69.0 - PNEUMONITIS DUE TO INHALATION OF FOOD AND VOMIT (4) Stroke Code(s): I63.9 - CEREBRAL INFARCTION, UNSPECIFIED (5) ESRD on dialysis Code(s): N18.6 - END STAGE RENAL DISEASE; Z99.2 - DEPENDENCE ON RENAL DIALYSIS (6) Hypertension Code(s): I10 - ESSENTIAL (PRIMARY) HYPERTENSION
--- NOTE | 2020-01-25 13:22 | PN ---
Progress Note (short form) - Note Progress Note: 74 year old female brought patient from [place] for unreponsivness for two days prior to admission. Patient has history of stroke three months ago and has been decline since than. Patinet has been awake two days agoa and slowly became aphasic and unreponsive. Patient has no seizure, she has high wbc and suspected to have aspiration pneumonia. Patient has large right mca cerebral edema. still unreponsive, spikes fever today, aspiration penumonia , patient is waiting for peg tube placement NEUROLOGICAL EXAMINATION comatose and very minimal response to painfl stimuli neck is supple afebrile pupils is small sluggsihly reactive gag and corneal reflex is present bp is maintained ct head showed large right mca cerebral edema repeat ct head on january 16 showed interval change Assessment/Plan 1. Lare right mca acute stroke with aspiriation pneumoia ,came with unreponsiveness, patient has old left mca stroke now she has bihemispheric stroke with minimal reponsivness, no seizure , no fever , wbc remain high Plan: prongnosis is poor - continue abx wiating for peg tube placemen - continue antiplatelet and statin dvt prophylaxis, Pippa sol so much Norman Plascencia MD
[2020-01-25] MEDS ORDERED: FLUCONAZOLE 150 MG TABLET PO ONE (14:30)
--- NOTE | 2020-01-25 15:16 | PN ---
Progress Note (short form) - Note Progress Note: Poorly responsive. NAD on NC O2. No acute events overnight. Intake & Output 01/22/20 01/23/20 01/24/20 01/25/20 23:59 23:59 23:59 23:59 Intake Total 630 1650 330 970 Output Total 1500 1500 Balance 630 150 330 -530 Weight 92 lb 0.4 oz Last Vital Signs Temp Pulse Resp BP Pulse Ox 98.3 F 100 H 20 124/66 96 01/25/20 14:22 01/25/20 11:40 01/25/20 14:22 01/25/20 14:22 01/25/20 10:00 Active Medications Acetaminophen (Tylenol -) 650 mg PO Q6H PRN PRN Reason: Fever Or Pain Last Admin: 01/24/20 11:16 Dose: 650 mg Documented by: Atorvastatin Calcium (Lipitor -) 40 mg PO HS JOSE Last Admin: 01/24/20 21:46 Dose: 40 mg Documented by: Collagenase (Santyl -) 1 applic TP DAILY JOSE; Protocol Last Admin: 01/25/20 12:13 Dose: 1 applic Documented by: Enalapril Maleate (Vasotec -) 10 mg PO DAILY JOSE Last Admin: 01/25/20 12:13 Dose: 10 mg Documented by: Piperacillin Sod/Tazobactam (Sod 2.25 gm/ Dextrose) 50 mls @ 100 mls/hr IVPB Q8H-IV JOSE; Protocol Last Admin: 01/25/20 12:13 Dose: 100 mls/hr Documented by: Sodium Chloride (Normal Saline -) 250 mls @ 3,000 mls/hr IV PRN PRN PRN Reason: Hypotension during Dialysis Stop: 01/26/20 10:29 Sodium Chloride (Normal Saline -) 250 mls @ 3,000 mls/hr IV PRN PRN PRN Reason: Hypotension during Dialysis Stop: 01/26/20 10:30 Insulin Aspart (Novolog Vial Sliding Scale -) 1 vial SQ ACHS JOSE; Protocol Last Admin: 01/25/20 12:14 Dose: Not Given Documented by: Constitutional: Yes: Poorly responsive, NAD HENT: Yes: WNL Neck: Yes: WNL Cardiovascular: Yes: Regular Rate and Rhythm, S1, S2 Respiratory: Yes: Diminished Gastrointestinal: Yes: Normal Bowel Sounds, Soft Extremities: Yes: WNL Edema: No Labs: Laboratory Results - last 24 hr 01/22/20 01/24/20 01/25/20 11:35 21:46 06:25 WBC RBC Hgb Hct MCV MCH MCHC RDW Plt Count MPV Sodium Potassium Chloride Carbon Dioxide Anion Gap BUN Creatinine Est GFR (CKD-EPI)AfAm Est GFR (CKD-EPI)NonAf POC Glucometer 165 146 207 Random Glucose Calcium 01/25/20 01/25/20 01/25/20 08:40 08:40 12:12 WBC 14.3 H RBC 3.09 L Hgb 9.7 L Hct 30.5 L MCV 98.5 H MCH 31.4 MCHC 31.8 L RDW 20.1 H Plt Count 349 MPV 9.8 Sodium 146 H Potassium 4.9 Chloride 108 H Carbon Dioxide 32 Anion Gap 5 L BUN 43.6 H Creatinine 4.1 H Est GFR (CKD-EPI)AfAm 11.51 Est GFR (CKD-EPI)NonAf 9.93 POC Glucometer 140 Random Glucose 228 H Calcium 8.1 L Problem List - Problems (1) Altered mental status Code(s): R41.82 - ALTERED MENTAL STATUS, UNSPECIFIED (2) Pneumonia, aspiration Code(s): J69.0 - PNEUMONITIS DUE TO INHALATION OF FOOD AND VOMIT (3) Stroke Code(s): I63.9 - CEREBRAL INFARCTION, UNSPECIFIED (4) Hypertension Code(s): I10 - ESSENTIAL (PRIMARY) HYPERTENSION (5) ESRD on dialysis Code(s): N18.6 - END STAGE RENAL DISEASE; Z99.2 - DEPENDENCE ON RENAL DIALYSIS Assessment/Plan Acute CVA : poor overall outcome for intervention Pneumonia likely Aspiration ESRD on HD HTN DM Hyperlipidemia h/o CVA - ABX - aspiration precautions - O2 to keep SpO2 >90% - VTE prophylaxis - poor overall prognosis - GOC being discussed Dr Alonzo
--- NOTE | 2020-01-25 17:00 | PN ---
Progress Note (short form) - Note Progress Note: Vascular Surgery Pt seen and examined. Stage 3 Sacral ulcer. Continue santyl. would not debride, will end up exposing bone. offload area. Anup Lomax DO
--- NOTE | 2020-01-25 21:34 | PN ---
Progress Note, Physician Chief Complaint: UNRESPONSIVE TEMP NOTED BREATHING NON-LABORED WBC SL ELEVATED BC NO GROWTH - Current Medication List Current Medications: Active Medications Acetaminophen (Tylenol -) 650 mg PO Q6H PRN PRN Reason: Fever Or Pain Last Admin: 01/24/20 11:16 Dose: 650 mg Documented by: Atorvastatin Calcium (Lipitor -) 40 mg PO HS JOSE Last Admin: 01/24/20 21:46 Dose: 40 mg Documented by: Collagenase (Santyl -) 1 applic TP DAILY [facility]; Protocol Last Admin: 01/25/20 12:13 Dose: 1 applic Documented by: Enalapril Maleate (Vasotec -) 10 mg PO DAILY JOSE Last Admin: 01/25/20 12:13 Dose: 10 mg Documented by: Piperacillin Sod/Tazobactam (Sod 2.25 gm/ Dextrose) 50 mls @ 100 mls/hr IVPB Q8H-IV JOSE; Protocol Last Admin: 01/25/20 17:02 Dose: 100 mls/hr Documented by: Sodium Chloride (Normal Saline -) 250 mls @ 3,000 mls/hr IV PRN PRN PRN Reason: Hypotension during Dialysis Stop: 01/26/20 10:29 Sodium Chloride (Normal Saline -) 250 mls @ 3,000 mls/hr IV PRN PRN PRN Reason: Hypotension during Dialysis Stop: 01/26/20 10:30 Insulin Aspart (Novolog Vial Sliding Scale -) 1 vial SQ ACHS [facility]; Protocol Last Admin: 01/25/20 17:02 Dose: 2 units Documented by: - Objective Vital Signs: Vital Signs Temperature 97.9 F 01/25/20 18:00 Pulse Rate 98 H 01/25/20 18:00 Respiratory Rate 19 01/25/20 18:00 Blood Pressure 133/65 01/25/20 18:00 O2 Sat by Pulse Oximetry (%) 95 01/25/20 18:00 Constitutional: Yes: No Distress Cardiovascular: Yes: Regular Rate and Rhythm, S1, S2 Respiratory: Yes: CTA Bilaterally Gastrointestinal: Yes: Normal Bowel Sounds, Soft Edema: No Labs: CBC, BMP 01/25/20 08:40 01/25/20 08:40 INR, PTT INR 1.11 (0.83-1.09) H 01/23/20 12:25 Assessment/Plan S/P ACUTE CVA ALTERED MENTATION PROBABLE ASP RLL PNEUMONIA ESRD FEVER/ LEUKOCYTOSIS OBS CONTINUE EMPIRIC ZOSYN RECULTURE FOR RECURRENT TEMP
[2020-01-25] MEDS: ATORVASTATIN CA 40 MG TABLET (FP) PO SCH (22:05)
[2020-01-26] MEDS ORDERED: PIPERACILLIN/TAZOBACTAM 2.25 GM VIAL IVPB ONE ×3 (01:33→16:59)
[2020-01-26] MEDS ORDERED: DEXTROSE 5%-WATER - 50 ML IVPB ONE ×3 (01:33→16:59)
[2020-01-26] MEDS: PIPERACILLIN/TAZOB 2.25 GM 2.25 GM in DEXTROSE 5%-WATER - 50 ML IVPB SCH ×3 (01:55→17:07)
[2020-01-26] MEDS: INSULIN SLIDING SCALE (NOVOLOG) 1 VIAL SQ SCH ×4 (06:26→22:55)
[2020-01-26 08:35] LABS: HEMATOCRIT 30.8 % (32.4-45.2); HEMOGLOBIN 9.7 GM/dL (10.7-15.3); MCH 31.2 pg (25.7-33.7); MCHC 31.6 g/dl (32.0-36.0); MEAN CELL VOLUME 98.9 fl (80-96); MEAN PLT VOLUME 10.1 fl (7.5-11.1); PLATELET COUNT 323 K/MM3 (134-434); RBC 3.11 M/mm3 (3.60-5.2); RDW 19.5 % (11.6-15.6); WHITE BLOOD COUNT 15.3 K/mm3 (4.0-10.0)
[2020-01-26] MEDS: ENALAPRIL MALEATE 10 MG TABLET (FP) PO SCH (09:37)
[2020-01-26] MEDS: COLLAGENASE CLOSTRIDIUM HIST. 30 GRAMS TUBE TP SCH (09:37)
--- NOTE | 2020-01-26 10:37 | PN ---
Progress Note, Physician History of Present Illness: Pt seen/ examined chart reviewed d/w Rn also overall condition same All f/u noted Peg under IR Guidance -- Possible today Afebrile but wbc elevated - Current Medication List Current Medications: Active Medications Acetaminophen (Tylenol -) 650 mg PO Q6H PRN PRN Reason: Fever Or Pain Last Admin: 01/24/20 11:16 Dose: 650 mg Documented by: Atorvastatin Calcium (Lipitor -) 40 mg PO HS JOSE Last Admin: 01/25/20 22:05 Dose: 40 mg Documented by: Collagenase (Santyl -) 1 applic TP DAILY JOSE; Protocol Last Admin: 01/26/20 09:37 Dose: 1 applic Documented by: Enalapril Maleate (Vasotec -) 10 mg PO DAILY [facility] Last Admin: 01/26/20 09:37 Dose: 10 mg Documented by: Piperacillin Sod/Tazobactam (Sod 2.25 gm/ Dextrose) 50 mls @ 100 mls/hr IVPB Q8H-IV JOSE; Protocol Last Admin: 01/26/20 09:37 Dose: 100 mls/hr Documented by: Sodium Chloride (Normal Saline -) 250 mls @ 3,000 mls/hr IV PRN PRN PRN Reason: Hypotension during Dialysis Stop: 01/26/20 10:29 Sodium Chloride (Normal Saline -) 250 mls @ 3,000 mls/hr IV PRN PRN PRN Reason: Hypotension during Dialysis Stop: 01/26/20 10:30 Insulin Aspart (Novolog Vial Sliding Scale -) 1 vial SQ ACHS [facility]; Protocol Last Admin: 01/26/20 06:26 Dose: 2 units Documented by: - Objective Vital Signs: Vital Signs Temperature 98.8 F 01/26/20 09:30 Pulse Rate 107 H 01/26/20 09:30 Respiratory Rate 20 01/26/20 09:30 Blood Pressure 123/63 01/26/20 09:30 O2 Sat by Pulse Oximetry (%) 95 01/26/20 09:30 Cardiovascular: Yes: Regular Rate and Rhythm Respiratory: Yes: Diminished Gastrointestinal: Yes: Soft Labs: CBC, BMP 01/26/20 08:00 01/25/20 08:40 INR, PTT INR 1.11 (0.83-1.09) H 01/23/20 12:25 Problem List - Problems (1) Stroke Code(s): I63.9 - CEREBRAL INFARCTION, UNSPECIFIED (2) Pneumonia, aspiration Code(s): J69.0 - PNEUMONITIS DUE TO INHALATION OF FOOD AND VOMIT (3) Diabetes Code(s): E11.9 - TYPE 2 DIABETES MELLITUS WITHOUT COMPLICATIONS (4) ESRD on dialysis Code(s): N18.6 - END STAGE RENAL DISEASE; Z99.2 - DEPENDENCE ON RENAL DIALYSIS Assessment/Plan A/P Acute right temporoparietal infarct -- Large MCA aspiration pneumonia ESRD -HD NG feeding CONTINUE PRESENT CARE ABX PALLIATIVE CARE following PEg to be planned under IR guidance Leukocytosis Prognosis poor Pt is DNR Free water with feeding D/W RN and manager presentation also Will follow
--- NOTE | 2020-01-26 14:11 | PN ---
Progress Note, Physician Chief Complaint: UNRESPONSIVE TEMPS DOWN BUT WBC TRENDING UPWARD BREATHING NON-LABORED NO DIARRHEA BC 01/23 NO GROWTH - Current Medication List Current Medications: Active Medications Acetaminophen (Tylenol -) 650 mg PO Q6H PRN PRN Reason: Fever Or Pain Last Admin: 01/24/20 11:16 Dose: 650 mg Documented by: Atorvastatin Calcium (Lipitor -) 40 mg PO HS JOSE Last Admin: 01/25/20 22:05 Dose: 40 mg Documented by: Collagenase (Santyl -) 1 applic TP DAILY JOSE; Protocol Last Admin: 01/26/20 09:37 Dose: 1 applic Documented by: Enalapril Maleate (Vasotec -) 10 mg PO DAILY JOSE Last Admin: 01/26/20 09:37 Dose: 10 mg Documented by: Piperacillin Sod/Tazobactam (Sod 2.25 gm/ Dextrose) 50 mls @ 100 mls/hr IVPB Q8H-IV JOSE; Protocol Last Admin: 01/26/20 09:37 Dose: 100 mls/hr Documented by: Sodium Chloride (Normal Saline -) 250 mls @ 3,000 mls/hr IV PRN PRN PRN Reason: Hypotension during Dialysis Stop: 01/26/20 10:29 Sodium Chloride (Normal Saline -) 250 mls @ 3,000 mls/hr IV PRN PRN PRN Reason: Hypotension during Dialysis Stop: 01/26/20 10:30 Insulin Aspart (Novolog Vial Sliding Scale -) 1 vial SQ ACHS [facility]; Protocol Last Admin: 01/26/20 11:54 Dose: 2 units Documented by: - Objective Vital Signs: Vital Signs Temperature 99.2 F 01/26/20 13:44 Pulse Rate 117 H 01/26/20 13:44 Respiratory Rate 01/26/20 13:44 Blood Pressure 125/74 01/26/20 13:44 O2 Sat by Pulse Oximetry (%) 94 L 01/26/20 13:44 Constitutional: Yes: No Distress Eyes: Yes: Conjunctiva Clear Cardiovascular: Yes: Regular Rate and Rhythm, S1, S2 Respiratory: Yes: Diminished Gastrointestinal: Yes: Normal Bowel Sounds, Soft. No: Tenderness Edema: Yes Labs: CBC, BMP 01/26/20 08:00 01/25/20 08:40 INR, PTT INR 1.11 (0.83-1.09) H 01/23/20 12:25 Assessment/Plan S/P ACUTE CVA ALTERED MENTATION PROBABLE ASP RLL PNEUMONIA ESRD LEUKOCYTOSIS OBS DAY #10 EMPIRIC ZOSYN WILL D/C ANTIBIOTIC, RECULTURE OFF FOR RECURRENT TEMP/INC WBC
[2020-01-26] MEDS ORDERED: SODIUM CHLORIDE 250 ML IV PRN ×2 (14:39→20:45)
--- NOTE | 2020-01-26 14:42 | PN ---
Progress Note, Physician History of Present Illness: Pt seen and examined. SHe remains lethargic. - Current Medication List Current Medications: Active Medications Acetaminophen (Tylenol -) 650 mg PO Q6H PRN PRN Reason: Fever Or Pain Last Admin: 01/24/20 11:16 Dose: 650 mg Documented by: Atorvastatin Calcium (Lipitor -) 40 mg PO HS JOSE Last Admin: 01/25/20 22:05 Dose: 40 mg Documented by: Collagenase (Santyl -) 1 applic TP DAILY JO[facility]; Protocol Last Admin: 01/26/20 09:37 Dose: 1 applic Documented by: Enalapril Maleate (Vasotec -) 10 mg PO DAILY JOSE Last Admin: 01/26/20 09:37 Dose: 10 mg Documented by: Piperacillin Sod/Tazobactam (Sod 2.25 gm/ Dextrose) 50 mls @ 100 mls/hr IVPB Q8H-IV JOSE; Protocol Last Admin: 01/26/20 09:37 Dose: 100 mls/hr Documented by: Sodium Chloride (Normal Saline -) 250 mls @ 3,000 mls/hr IV PRN PRN PRN Reason: Hypotension during Dialysis Stop: 01/26/20 10:29 Sodium Chloride (Normal Saline -) 250 mls @ 3,000 mls/hr IV PRN PRN PRN Reason: Hypotension during Dialysis Stop: 01/26/20 10:30 Sodium Chloride (Normal Saline -) 250 mls @ 3,000 mls/hr IV PRN PRN PRN Reason: Hypotension during Dialysis Stop: 01/27/20 14:39 Insulin Aspart (Novolog Vial Sliding Scale -) 1 vial SQ ACHS [facility]; Protocol Last Admin: 01/26/20 11:54 Dose: 2 units Documented by: - Objective Vital Signs: Vital Signs Temperature 99.2 F 01/26/20 13:44 Pulse Rate 117 H 01/26/20 13:44 Respiratory Rate 20 01/26/20 13:44 Blood Pressure 125/74 01/26/20 13:44 O2 Sat by Pulse Oximetry (%) 94 L 01/26/20 13:44 Constitutional: Yes: Calm Eyes: Yes: Conjunctiva Clear HENT: Yes: Atraumatic Cardiovascular: Yes: S1, S2 Gastrointestinal: Yes: Soft Genitourinary: Yes: Incontinence Musculoskeletal: Yes: Muscle Weakness Edema: Yes Edema: LLE: Trace, RLE: Trace Neurological: Yes: Lethargy Labs: CBC, BMP 01/26/20 08:00 01/25/20 08:40 INR, PTT INR 1.11 (0.83-1.09) H 01/23/20 12:25 Assessment/Plan Current Medications Generic Name Dose Route Start Last Admin Trade Name Mellisa PRN Reason Stop Dose Admin Acetaminophen 650 mg 01/17/20 06:23 01/24/20 11:16 Tylenol - PO 650 mg Q6H PRN Administration Fever Or Pain Atorvastatin Calcium 40 mg 01/15/20 22:00 01/25/20 22:05 Lipitor - PO 40 mg HS JOSE Administration Collagenase 1 applic 01/19/20 10:45 01/26/20 09:37 Santyl - TP 1 applic DAILY JOSE Administration Protocol Enalapril Maleate 10 mg 01/24/20 10:00 01/26/20 09:37 Vasotec - PO 10 mg DAILY JOSE Administration Piperacillin Sod/Tazobactam 50 mls @ 100 mls/hr 01/15/20 18:45 01/26/20 09:37 Sod 2.25 gm/ Dextrose IVPB 100 mls/hr Q8H-IV JOSE Administration Protocol Sodium Chloride 250 mls @ 3,000 mls/hr 01/25/20 10:29 Normal Saline - IV 01/26/20 10:29 PRN PRN Hypotension during Dialysis Sodium Chloride 250 mls @ 3,000 mls/hr 01/25/20 10:30 Normal Saline - IV 01/26/20 10:30 PRN PRN Hypotension during Dialysis Sodium Chloride 250 mls @ 3,000 mls/hr 01/26/20 14:39 Normal Saline - IV 01/27/20 14:39 PRN PRN Hypotension during Dialysis Insulin Aspart 1 vial 01/17/20 22:15 01/26/20 11:54 Novolog Vial Sliding Scale - SQ 2 units ACHS JOSE Administration Protocol Impression 1. esrd 2. Acute right temporoparietal infarct 3. previous CVA 4. aspiration pneumonia 5. htn 6. hld Plan - HD tomorrow - cont current management - orders written - discuss GOC with family
--- NOTE | 2020-01-26 15:53 | PN ---
Progress Note (short form) - Note Progress Note: Remains lethargic. NAD on NC O2. No acute events overnight. Intake & Output 01/23/20 01/24/20 01/25/20 01/26/20 23:59 23:59 23:59 23:59 Intake Total 7260 936 6604 980 Output Total 1500 1500 Balance 150 330 110 980 Last Vital Signs Temp Pulse Resp BP Pulse Ox 99.2 F 117 H 20 125/74 94 L 01/26/20 13:44 01/26/20 13:44 01/26/20 13:44 01/26/20 13:44 01/26/20 13:44 Active Medications Acetaminophen (Tylenol -) 650 mg PO Q6H PRN PRN Reason: Fever Or Pain Last Admin: 01/24/20 11:16 Dose: 650 mg Documented by: Atorvastatin Calcium (Lipitor -) 40 mg PO HS JOSE Last Admin: 01/25/20 22:05 Dose: 40 mg Documented by: Collagenase (Santyl -) 1 applic TP DAILY [facility]; Protocol Last Admin: 01/26/20 09:37 Dose: 1 applic Documented by: Enalapril Maleate (Vasotec -) 10 mg PO DAILY [facility] Last Admin: 01/26/20 09:37 Dose: 10 mg Documented by: Piperacillin Sod/Tazobactam (Sod 2.25 gm/ Dextrose) 50 mls @ 100 mls/hr IVPB Q8H-IV JO[facility]; Protocol Last Admin: 01/26/20 09:37 Dose: 100 mls/hr Documented by: Sodium Chloride (Normal Saline -) 250 mls @ 3,000 mls/hr IV PRN PRN PRN Reason: Hypotension during Dialysis Stop: 01/27/20 14:39 Insulin Aspart (Novolog Vial Sliding Scale -) 1 vial SQ ACHS [facility]; Protocol Last Admin: 01/26/20 11:54 Dose: 2 units Documented by: Constitutional: Yes: Lethargic, NAD HENT: Yes: WNL Neck: Yes: WNL Cardiovascular: Yes: Regular Rate and Rhythm, S1, S2 Respiratory: Yes: Diminished Gastrointestinal: Yes: Normal Bowel Sounds, Soft Extremities: Yes: WNL Edema: No Labs: Laboratory Results - last 24 hr 01/25/20 01/26/20 17:00 08:00 WBC 15.3 H RBC 3.11 L Hgb 9.7 L Hct 30.8 L MCV 98.9 H MCH 31.2 MCHC 31.6 L RDW 19.5 H Plt Count 323 MPV 10.1 POC Glucometer 176 Problem List - Problems (1) Altered mental status Code(s): R41.82 - ALTERED MENTAL STATUS, UNSPECIFIED (2) Pneumonia, aspiration Code(s): J69.0 - PNEUMONITIS DUE TO INHALATION OF FOOD AND VOMIT (3) Stroke Code(s): I63.9 - CEREBRAL INFARCTION, UNSPECIFIED (4) Hypertension Code(s): I10 - ESSENTIAL (PRIMARY) HYPERTENSION (5) ESRD on dialysis Code(s): N18.6 - END STAGE RENAL DISEASE; Z99.2 - DEPENDENCE ON RENAL DIALYSIS Assessment/Plan Acute CVA Pneumonia likely Aspiration ESRD on HD HTN DM Hyperlipidemia h/o CVA - ABX - aspiration precautions - O2 to keep SpO2 >90% - VTE prophylaxis - poor overall prognosis Dr Alonzo
--- NOTE | 2020-01-26 19:36 | RAPID ---
Physical Examination Vital Signs: Vital Signs Temperature 99.2 F 01/26/20 13:44 Pulse Rate 117 H 01/26/20 13:44 Respiratory Rate 20 01/26/20 13:44 Blood Pressure 125/74 01/26/20 13:44 O2 Sat by Pulse Oximetry (%) 94 L 01/26/20 13:44 Labs: CBC, BMP 01/26/20 08:00 01/25/20 08:40 Rapid Response - Rapid Response Assessment: Rapid Response Called at 7:30pm. Patient reported to be desaturating in the 60's on facemask O2 after being adjusted in bed. Patient is non-responsive. Patient was initially DNR however the Patients family was contacted, and they explicitly requested for the patient to be intubated after being explained the risks associated. The family also explicitly requested for patient to be full code. Anesthesia was called and patient was intubated. Troponin, CBC, CMP, Lactic Acid ordered. Patient transferred to ICU
[2020-01-26] MEDS ORDERED: PT OWN MED DRAWER 7, Y5N ONE (20:22)
--- NOTE | 2020-01-26 20:38 | HOSP ---
Subjective - Review of Symptoms Events since last encounter: Hospitalist Encounter Rapid Response called overhead Arrived to bedside, patient is unresponsive, tachycardia with hypoxia. Patient placed on NRB Chest Xray obtained earlier this evening showed complete opacity to R- side. Tube feedings stopped Patient's daughter contacted by Dr Miguel, IM resident regarding advanced directives- she agrees to intubation, and rescinded the DNR. Patient is now a Full Code Anesthesiologist paged overhead for intubation Patient will be transferred to ICU. Physical Examination Vital Signs: Vital Signs Temperature 98.0 F 01/26/20 18:00 Pulse Rate 126 H 01/26/20 18:00 Respiratory Rate 01/26/20 18:00 Blood Pressure 122/79 01/26/20 18:00 O2 Sat by Pulse Oximetry (%) 93 L 01/26/20 18:00 Labs: CBC, BMP 01/26/20 08:00 01/25/20 08:40 Hospitalist Encounter Assessment: 74 year old female with a past medical history of ESRD (on HD), Hypertension, DMII, GERD, HTN, HLD, Aphasia and Sroke 3 months ago, admitted to ICU fro ED for progressive weakness and reported unresponsiveness Head CT showed (01/13) right pareital, occipital and temporal lobe suggestive of acute CVA no acute intracranial bleed Outcome: Patient intubated By Dr Pereira Patient transferred to ICU Critical Care Total Critical Care Time (in minutes): 40 Critical Care Statement: The care of this patient involved high complexity decision making to prevent further life threatening deterioration of the patient's condition and/or to evaluate & treat vital organ system(s) failure or risk of failure.
[2020-01-26] MEDS ORDERED: MEROPENEM 1 GM in DEXTROSE 5%-WATER 100 ML IVPB ONE (20:40)
[2020-01-26] MEDS ORDERED: VANCOMYCIN 1 GM in D5W (PRE-DOCKED) 1,000 MG/250 ML IVPB ONE (20:40)
--- NOTE | 2020-01-26 20:46 | PN ---
Physical Exam: ICU Resident Service Note SUBJECTIVE: Patient seen and examined. Rapid response was calledon [address] [place]; patient noted to be saturating in the 70s, with increased work of breathing. Rapid response Team in communication with patient's family rescinded DNR, and requested to go forward with intubation and full code. Noted chest radiograph from earlier today with complete opacification of right lung (not seen on prior chest radiograph); concerning for atelectasis, mucus plugging and likely aspiration. OBJECTIVE: Vital Signs Period Temp Pulse Resp BP Sys/Ramirez Pulse Ox Last 24 Hr 97.7 F-99.2 F 94-126 18-20 118-136/60-79 93-100 GENERAL: Intubated, minimal grimace to sternal rub. HEENT: NC/AT, pupils 2mm, sluggishly reactive to light. Dry mucous membranes, LUNGS: Intubated. Mechanical breath sounds equal, with bilateral coarse rhonchi. HEART: Tachycardic. S1, S2 without murmur, rub or gallop. ABDOMEN: Soft, nontender, nondistended. Hypoactive bowel sounds. EXTREMITIES: 1+ pulses bilaterally, cool. 2+ edema bilaterally. NEUROLOGICAL: minimally responsive, grimace to sternal rub. SKIN: Warm, dry. Stage III sacral ulcer 7.5cm x 7cm Laboratory Results - last 24 hr 01/26/20 08:00 WBC 15.3 H RBC 3.11 L Hgb 9.7 L Hct 30.8 L MCV 98.9 H MCH 31.2 MCHC 31.6 L RDW 19.5 H Plt Count 323 MPV 10.1 Active Medications Generic Name Dose Route Start Last Admin Trade Name Jovanq PRN Reason Stop Dose Admin Acetaminophen 650 mg 01/17/20 06:23 01/24/20 11:16 Tylenol - PO 650 mg Q6H PRN Administration Fever Or Pain Atorvastatin Calcium 40 mg 01/15/20 22:00 01/25/20 22:05 Lipitor - PO 40 mg HS JOSE Administration Chlorhexidine Gluconate 1 applic 01/26/20 22:00 Hibiclens For Decolonization - TP HS JOSE Collagenase 1 applic 01/19/20 10:45 01/26/20 09:37 Santyl - TP 1 applic DAILY JOSE Administration Protocol Enalapril Maleate 10 mg 01/24/20 10:00 01/26/20 09:37 Vasotec - PO 10 mg DAILY JOSE Administration Piperacillin Sod/Tazobactam 50 mls @ 100 mls/hr 01/15/20 18:45 01/26/20 17:07 Sod 2.25 gm/ Dextrose IVPB 100 mls/hr Q8H-IV JOSE Administration Protocol Sodium Chloride 250 mls @ 3,000 mls/hr 01/26/20 14:39 Normal Saline - IV 01/27/20 14:39 PRN PRN Hypotension during Dialysis Meropenem 1 gm/ Dextrose 100 mls @ 200 mls/hr 01/26/20 20:40 IVPB 01/26/20 21:09 ONCE ONE Insulin Aspart 1 vial 01/17/20 22:15 01/26/20 17:07 Novolog Vial Sliding Scale - SQ 2 units ACHS JOSE Administration Protocol Mupirocin 1 applic 01/26/20 22:00 Bactroban Ointment (For Decolonization) - NS 01/31/20 21:59 BID JOSE Vancomycin HCl 1,000 mg 01/26/20 20:40 Vancomycin (Pre-Docked) IVPB 01/26/20 20:41 ONCE ONE Protocol ASSESSMENT/PLAN: Patient is a 74 year old female with history of CVA, ESRD on hemodialysis, hypertension, hyperlipidemia, diabetes mellitus admitted to ICU for acute hypoxic respiratory failure. Neurologic History of multiple CVA -Sedated with Fentanyl. Minimally responsive at baseline. -Continue Atorvastatin. -Appears Plavix was held in anticipation of ?PEG tube placement. Will need to clarify with Neurology, reinstate once clinically appropriate. Cardiac History of hypertension History of hyperlipidemia -Currently holding home antihypertensives. -Cardiac monitoring while in ICU -Troponin at 0.22. Appears unchanged from prior study on 01/13. Likely demand, will continue to trend. Obtain EKG. Pulmonary Acute hypoxic respiratory failure. -Chest radiograph reveals complete right sided opacification. Likely secondary to aspiration, mucus plugging. Less likely concern for PE given acute change in chest radiograph that explains hypoxia. -Intubated 7.5f tube, 22cm at teeth by anesthesia during rapid response -ABG 7.48 - CO2 39 - O2 69 -HCO3 28. -AC/ VC, RR16, TV400, FiO2 50%, PEEP 5 Infectious disease Aspiration pneumonia Sacral ulcer -Patient has been treated with Zosyn (day #10). Given concern for recurrent aspiration, will broaden coverage with one time dose Meropenem, Vancomycin. -ID recommendations appreciated Nephrologic ESRD on Hemodialysis -Next hemodialysis tentatively scheduled for 01/26 -Nephrology recommendations appreciated Endocrine History of diabetes mellitus -HgbA1c -Fingerstick blood glucose monitoring -Insulin sliding scale FEN -No IV fluids indicated -Follow BMP -NPO for now. Feeds held in setting of aspiration Prophylaxis -SCds bilateral lower extremities Lines/Tubes/Drains -Endotracheal 7.5f tube, 22cm (01/25) -Left sided A line was placed by Anesthesiologist (Dr. Kevin Irving) for emergent access. Subsequently removed. -Left femoral central venous catheter (01/25) Disposition -Admit to ICU Visit type - Emergency Visit Emergency Visit: Yes ED Registration Date: 01/15/20 Care time: The patient presented to the Emergency Department on the above date a nd was hospitalized for further evaluation of their emergent condition. - New Patient This patient is new to me today: No - Critical Care Critical Care patient: Yes Total Critical Care Time (in minutes): 36 Critical Care Statement: The care of this patient involved high complexity decision making to prevent further life threatening deterioration of the patient's condition and/or to evaluate & treat vital organ system(s) failure or risk of failure. - Medication Review Med list reviewed for High Risk Meds patients 65 and older: Yes ATTENDING PHYSICIAN STATEMENT I saw and evaluated the patient. I reviewed the resident's note and discussed the case with the resident. I agree with the resident's findings and plan as documented. SUBJECTIVE: OBJECTIVE: ASSESSMENT AND PLAN:
[2020-01-26] MEDS ORDERED: VANCOMYCIN 1 GRAM (PRE-DOCKED) 1,000 MG/250 ML BAG IVPB ONE ×2 (21:00→22:45)
[2020-01-26] MEDS ORDERED: FENTANYL IVPB 500 MCG/100 ML BAG IVPB SCH (21:15)
[2020-01-26 21:28] LABS: ARTERIAL BLOOD GAS BASE EXCESS 4.7 mmol/L (-2-2); ARTERIAL BLOOD GAS pH 7.481 (7.350-7.450)
[2020-01-26 21:29] LABS: ALLENS TEST POSITIVE
[2020-01-26 21:30] LABS: VENT MODE A/C; VENT RATE 14
[2020-01-26] MEDS ORDERED: MEROPENEM 1 GM VIAL (RESTRICTED TO ID) IVPB ONE (22:35)
[2020-01-26] MEDS ORDERED: DEXTROSE 5%-WATER 100 ML IVPB ONE (22:35)
[2020-01-26] MEDS: MUPIROCIN 2% TOPICAL OINTMENT FOR DECOLONIZATION NS SCH (22:46)
[2020-01-26] MEDS: CHLORHEXIDINE GLUCONATE 4% CLEANSER FOR DECOLONIZATION TP SCH (22:46)
[2020-01-26 23:51] LABS: BASO % 0.7 % (0-2.0); EOS % 0.7 % (0-4.5); HEMATOCRIT 30.9 % (32.4-45.2); HEMOGLOBIN 9.8 GM/dL (10.7-15.3); LYMPH % 6.7 % (8-40); MCHC 31.7 g/dl (32.0-36.0); MEAN CELL VOLUME 97.8 fl (80-96); MEAN PLT VOLUME 9.8 fl (7.5-11.1); MONO % 5.2 % (3.8-10.2); NEUT % 86.7 % (42.8-82.8); PLATELET COUNT 368 K/MM3 (134-434); RBC 3.16 M/mm3 (3.60-5.2); RDW 19.3 % (11.6-15.6); WHITE BLOOD COUNT 16.4 K/mm3 (4.0-10.0)
[2020-01-27 00:51] LABS: ALBUMIN 1.2 g/dl (3.4-5.0); BILIRUBIN,TOTAL 0.2 mg/dL (0.2-1); BLOOD UREA NITROGEN 38.9 mg/dL (7-18); CALCIUM 8.4 mg/dL (8.5-10.1); CREATININE 3.4 mg/dL (0.55-1.3); POTASSIUM 4.1 mmol/L (3.5-5.1); TOT PROT 5.5 g/dl (6.4-8.2)
[2020-01-27] MEDS ORDERED: MORPHINE SULFATE 2 MG/ML VIAL IVPUSH ONE (00:59)
[2020-01-27] MEDS ORDERED: MORPHINE SULFATE 2 MG/ML VIAL ONE (01:07)
[2020-01-27] MEDS ORDERED: DEXTROSE 5%-WATER - 50 ML IVPB ONE ×3 (03:14→17:58)
[2020-01-27] MEDS ORDERED: PIPERACILLIN/TAZOBACTAM 2.25 GM VIAL IVPB ONE ×3 (03:14→17:58)
[2020-01-27] MEDS: PIPERACILLIN/TAZOB 2.25 GM 2.25 GM in DEXTROSE 5%-WATER - 50 ML IVPB SCH ×3 (03:18→18:04)
--- NOTE | 2020-01-27 03:22 | PROC ---
Central Line Insertion Indication: Poor Venous Access Risks and Benefits Explained: Yes Consent on Chart: Yes Central Line: Triple Lumen Catheter Anesthesia: 1% Lidocaine Sterile Technique: Yes Ultrasound Guided Assistance: Yes Position: Left Femoral Post Insertion: Yes: Bilateral Breath Sounds, Bilateral Chest Expansion, Chest X-Ray Ordered Sterile Dressing Applied: Yes Remarks: Initially attempt was made for internal jugular central venous line, however aborted after unsuccessful attempts. Chest radiograph ordered. Lines supervised by on-call hospitalist attending Dr. Tomlinson
[2020-01-27] MEDS: FENTANYL IVPB 500 MCG/100 ML BAG IVPB SCH ×3 (04:56→23:56)
[2020-01-27 05:50] LABS: HEMATOCRIT 30.3 % (32.4-45.2); HEMOGLOBIN 9.6 GM/dL (10.7-15.3); MCH 30.6 pg (25.7-33.7); MCHC 31.6 g/dl (32.0-36.0); MEAN CELL VOLUME 96.6 fl (80-96); MEAN PLT VOLUME 9.4 fl (7.5-11.1); PLATELET COUNT 385 K/MM3 (134-434); RBC 3.13 M/mm3 (3.60-5.2); RDW 19.7 % (11.6-15.6); WHITE BLOOD COUNT 19.2 K/mm3 (4.0-10.0)
[2020-01-27] MEDS: INSULIN SLIDING SCALE (NOVOLOG) 1 VIAL SQ SCH ×4 (06:08→21:52)
[2020-01-27] MEDS ORDERED: DEXTROSE 50%-WATER 25 GM/50 ML DISP.SYRIN ONE ×2 (06:17→12:28)
[2020-01-27 06:22] LABS: ALBUMIN 1.2 g/dl (3.4-5.0); BILIRUBIN,TOTAL 0.3 mg/dL (0.2-1); BLOOD UREA NITROGEN 38.7 mg/dL (7-18); CALCIUM 7.6 mg/dL (8.5-10.1); CREATININE 3.3 mg/dL (0.55-1.3); MAGNESIUM 2.1 mg/dL (1.8-2.4); PHOSPHOROUS 3.1 mg/dL (2.5-4.9); POTASSIUM 3.9 mmol/L (3.5-5.1); TOT PROT 5.5 g/dl (6.4-8.2)
[2020-01-27] MEDS ORDERED: DEXTROSE 50%-WATER - 25 GM/50 ML VIAL IVPUSH ONE (06:39)
[2020-01-27] MEDS: ALBUMIN HUMAN 25% 12.5 GM/50 ML VIAL IVPB SCH ×4 (08:30→10:15)
--- NOTE | 2020-01-27 09:02 | PN ---
Progress Note (short form) - Note Progress Note: Pulm/CCM Progress Note Pt seen and examined in the ICU. HD done today. Remains intubating and sedated. RASS -5. Vent adjusted. Hypo glycemic. Added D5 drip. Active Medications Chlorhexidine Gluconate (Hibiclens For Decolonization -) 1 applic TP HS JOSE Last Admin: 01/26/20 22:46 Dose: 1 applic Documented by: Collagenase (Santyl -) 1 applic TP DAILY JOSE; Protocol Last Admin: 01/27/20 12:05 Dose: 1 applic Documented by: Piperacillin Sod/Tazobactam (Sod 2.25 gm/ Dextrose) 50 mls @ 100 mls/hr IVPB Q8H-IV JOSE; Protocol Last Admin: 01/27/20 10:05 Dose: 100 mls/hr Documented by: Sodium Chloride (Normal Saline -) 250 mls @ 3,000 mls/hr IV PRN PRN PRN Reason: Hypotension during Dialysis Stop: 01/27/20 14:39 Fentanyl (Sublimaze Ivpb) 500 mcg in 100 mls @ 1 mls/hr IVPB TITR JOSE; Protocol Last Admin: 01/27/20 04:56 Dose: 25 mcg/hr, 5 mls/hr Documented by: Dextrose/Sodium Chloride (D5-Ns -) 1,000 mls @ 25 mls/hr IV ASDIR [facility] Last Admin: 01/27/20 12:35 Dose: 25 mls/hr Documented by: Insulin Aspart (Novolog Vial Sliding Scale -) 1 vial SQ ACHS [facility]; Protocol Last Admin: 01/27/20 12:32 Dose: Not Given Documented by: Mupirocin (Bactroban Ointment (For Decolonization) -) 1 applic NS BID [facility] Stop: 01/31/20 21:59 Last Admin: 01/27/20 10:05 Dose: 1 applic Documented by: Vital Signs Period Temp Pulse Resp BP Sys/Ramirez Pulse Ox Last 24 Hr 97.4 F-98.7 F 70-126 12-20 86-143/54-99 90-100 Intake & Output 01/24/20 01/25/20 01/26/20 01/27/20 23:59 23:59 23:59 23:59 Intake Total 330 1610 1110 320 Output Total 1500 Balance 323 638 8886 320 Vent: AC/VC 14/400/70/5 Gen: Intuabted and sedated Neuro: RASS-5 Lungs: CTA CV: S1S2, tachy Ext: Warm; 2+ edema CBC,CMP WBC 19.2 K/mm3 (4.0-10.0) H 01/27/20 05:00 RBC 3.13 M/mm3 (3.60-5.2) L 01/27/20 05:00 Hgb 9.6 GM/dL (10.7-15.3) L 01/27/20 05:00 Hct 30.3 % (32.4-45.2) L 01/27/20 05:00 MCV 96.6 fl (80-96) H 01/27/20 05:00 MCH 30.6 pg (25.7-33.7) 01/27/20 05:00 MCHC 31.6 g/dl (32.0-36.0) L 01/27/20 05:00 RDW 19.7 % (11.6-15.6) H 01/27/20 05:00 Plt Count 385 K/MM3 (134-434) 01/27/20 05:00 MPV 9.4 fl (7.5-11.1) 01/27/20 05:00 Absolute Neuts (auto) 14.2 K/mm3 (1.5-8.0) H 01/26/20 23:40 Total Counted 100 01/15/20 08:40 Neutrophils % 86.7 % (42.8-82.8) H 01/26/20 23:40 Neutrophils % (Manual) 79.0 % (42.8-82.8) 01/15/20 08:40 Band Neutrophils % 2.0 % 01/15/20 08:40 Lymphocytes % 6.7 % (8-40) L D 01/26/20 23:40 Lymphocytes % (Manual) 13.0 % (8-40) 01/15/20 08:40 Monocytes % 5.2 % (3.8-10.2) 01/26/20 23:40 Monocytes % (Manual) 4 % (3.8-10.2) 01/15/20 08:40 Eosinophils % 0.7 % (0-4.5) 01/26/20 23:40 Eosinophils % (Manual) 0.0 % (0-4.5) 01/15/20 08:40 Basophils % 0.7 % (0-2.0) 01/26/20 23:40 Basophils % (Manual) 1.0 % (0-2.0) 01/15/20 08:40 Nucleated RBC % 0 % (0-0) 01/26/20 23:40 Metamyelocytes 1 % (0-2) 01/15/20 08:40 Hypochromia 0 01/18/20 06:10 Platelet Estimate Normal 01/18/20 06:10 Platelet Comment No clumping noted 01/15/20 08:40 Platelet Comment Large platelets 01/15/20 08:40 Polychromasia 1+ 01/18/20 06:10 Poikilocytosis 1+ 01/18/20 06:10 Anisocytosis 1+ 01/18/20 06:10 Microcytosis 1+ 01/18/20 06:10 Macrocytosis 0 01/18/20 06:10 [facility] Cells 1+ 01/18/20 06:10 Sodium 145 mmol/L (136-145) 01/27/20 05:00 Potassium 3.9 mmol/L (3.5-5.1) 01/27/20 05:00 Chloride 108 mmol/L (98-107) H 01/27/20 05:00 Carbon Dioxide 32 mmol/L (21-32) 01/27/20 05:00 Anion Gap 6 MMOL/L (8-16) L 01/27/20 05:00 BUN 38.7 mg/dL (7-18) H 01/27/20 05:00 Creatinine 3.3 mg/dL (0.55-1.3) H 01/27/20 05:00 Est GFR (CKD-EPI)AfAm 14.96 01/27/20 05:00 Est GFR (CKD-EPI)NonAf 12.91 01/27/20 05:00 POC Glucometer 84 UNITS (80-120) 01/27/20 13:58 Random Glucose 56 mg/dL (74-106) L 01/27/20 05:00 Lactic Acid 1.9 mmol/L (0.4-2.0) 01/26/20 23:40 Calcium 7.6 mg/dL (8.5-10.1) L 01/27/20 05:00 Phosphorus 3.1 mg/dL (2.5-4.9) 01/27/20 05:00 Magnesium 2.1 mg/dL (1.8-2.4) 01/27/20 05:00 Total Bilirubin 0.3 mg/dL (0.2-1) 01/27/20 05:00 AST 45 U/L (15-37) H 01/27/20 05:00 ALT 16 U/L (13-61) 01/27/20 05:00 Alkaline Phosphatase 151 U/L (45-117) H 01/27/20 05:00 Troponin I 0.32 ng/ml (0.00-0.05) H 01/27/20 05:00 Total Protein 5.5 g/dl (6.4-8.2) L 01/27/20 05:00 Albumin 1.2 g/dl (3.4-5.0) L 01/27/20 05:00 Beta-Hydroxybutyrate 8.7 mg/dL (0.2-2.8) H 01/15/20 08:40 TSH 1.32 uIU/ml (0.358-3.74) 01/14/20 20:10 Microbiology 01/24/20 12:51 Blood - Peripheral Venous Blood Culture - Preliminary NO GROWTH OBTAINED AFTER 72 HOURS, INCUBATION TO CONTINUE FOR 2 DAYS. 01/24/20 12:42 Blood - Peripheral Venous Blood Culture - Preliminary NO GROWTH OBTAINED AFTER 72 HOURS, INCUBATION TO CONTINUE FOR 2 DAYS. 01/14/20 20:10 Blood - Peripheral Venous Blood Culture - Final NO GROWTH AFTER 5 DAYS INCUBATION 01/14/20 20:10 Blood - Peripheral Venous Blood Culture - Final NO GROWTH AFTER 5 DAYS INCUBATION CXR: ETT 5cm above kyle; Lt neck emphysema; Rt IJ TDC. Lung dubon mostly clear Assessment/Plan Acute CVA Pneumonia likely Aspiration ESRD on HD HTN DM Hyperlipidemia h/o CVA -LTVV; goal plat<30 -Wean FiO2 for O2 sat >92% -Pulm toilet; aspiration precautions -Sedation for vent synchrony -Wean sedation to assess mental status -Cont empiric antib coverage -D5NS IVF -Monitor BMP and electrolytes -HD as per nephrology -VTE prophylaxis and GI proph -Poor overall prognosis -Cont goals of care discussion with family Sasha Monte, ACNP CCT 35 mins
[2020-01-27] MEDS: MUPIROCIN 2% TOPICAL OINTMENT FOR DECOLONIZATION NS SCH ×2 (10:05→21:52)
[2020-01-27 12:02] LABS: ALLENS TEST POSITIVE; ARTERIAL BLD GAS O2 SATURATION 99.8 mmHg (95-98); ARTERIAL BLOOD GAS BASE EXCESS 7.9 mmol/L (-2-2); ARTERIAL BLOOD GAS PO2 389.2 mmHg (80-100); ARTERIAL BLOOD GAS pH 7.527 (7.350-7.450)
[2020-01-27 12:03] LABS: VENT MODE A/C; VENT RATE 14
[2020-01-27] MEDS: COLLAGENASE CLOSTRIDIUM HIST. 30 GRAMS TUBE TP SCH (12:05)
--- NOTE | 2020-01-27 12:12 | PN ---
Progress Note (short form) - Note Progress Note: s/p rapid response for acute respiratory failure intubated- on ventilator in ICU Vital Signs - 24 hr 01/26/20 01/26/20 01/26/20 18:00 20:17 20:41 Temperature 98.0 F 98.6 F Pulse Rate 126 H 116 H 109 H Respiratory 20 14 14 Rate Blood Pressure 122/79 104/68 96/54 L O2 Sat by Pulse 93 L 95 90 L Oximetry (%) 01/26/20 01/26/20 01/26/20 20:48 20:57 21:00 Temperature Pulse Rate 109 H 109 H 109 H Respiratory 14 16 18 Rate Blood Pressure 86/58 L 98/62 O2 Sat by Pulse 96 99 100 Oximetry (%) 01/26/20 01/26/20 01/26/20 22:00 23:00 23:57 Temperature 98.6 F 98.7 F Pulse Rate 102 H 101 H Respiratory 14 14 14 Rate Blood Pressure 133/83 138/83 O2 Sat by Pulse 91 L 98 100 Oximetry (%) 01/27/20 01/27/20 01/27/20 01:00 02:00 03:00 Temperature Pulse Rate 98 H 90 90 Respiratory 14 15 15 Rate Blood Pressure 143/82 140/80 133/80 O2 Sat by Pulse 99 97 98 Oximetry (%) 01/27/20 01/27/20 01/27/20 04:00 04:58 05:00 Temperature 97.4 F L Pulse Rate 93 H 91 H Respiratory 14 14 14 Rate Blood Pressure 118/74 118/77 O2 Sat by Pulse 97 100 99 Oximetry (%) 01/27/20 01/27/20 01/27/20 06:00 07:15 07:30 Temperature Pulse Rate 85 80 80 Respiratory 14 14 14 Rate Blood Pressure 122/75 128/75 115/74 O2 Sat by Pulse 100 Oximetry (%) 01/27/20 01/27/20 01/27/20 08:00 08:20 08:30 Temperature Pulse Rate 82 80 78 Respiratory 14 14 14 Rate Blood Pressure 93/69 88/64 L 90/65 O2 Sat by Pulse Oximetry (%) 01/27/20 01/27/20 01/27/20 08:41 09:00 09:24 Temperature Pulse Rate 78 86 Respiratory 14 14 14 Rate Blood Pressure 111/69 104/67 O2 Sat by Pulse 98 98 Oximetry (%) 01/27/20 01/27/20 01/27/20 09:30 10:00 10:30 Temperature Pulse Rate 74 75 74 Respiratory 14 14 14 Rate Blood Pressure 116/63 103/99 113/70 O2 Sat by Pulse Oximetry (%) 01/27/20 01/27/20 01/27/20 10:45 10:55 12:06 Temperature Pulse Rate 74 76 70 Respiratory 14 14 14 Rate Blood Pressure 113/70 112/68 143/70 O2 Sat by Pulse 98 Oximetry (%) 01/27/20 12:53 Temperature Pulse Rate Respiratory 14 Rate Blood Pressure O2 Sat by Pulse 97 Oximetry (%) Current Medications Generic Name Dose Route Start Last Admin Trade Name Freq PRN Reason Stop Dose Admin Chlorhexidine Gluconate 1 applic 01/26/20 22:00 01/26/20 22:46 Hibiclens For Decolonization - TP 1 applic HS JOSE Administration Collagenase 1 applic 01/27/20 10:00 01/27/20 12:05 Santyl - TP 1 applic DAILY JOSE Administration Protocol Piperacillin Sod/Tazobactam 50 mls @ 100 mls/hr 01/27/20 02:00 01/27/20 10:05 Sod 2.25 gm/ Dextrose IVPB 100 mls/hr Q8H-IV JOSE Administration Protocol Sodium Chloride 250 mls @ 3,000 mls/hr 01/26/20 20:45 Normal Saline - IV 01/27/20 14:39 PRN PRN Hypotension during Dialysis Fentanyl 500 mcg in 100 mls @ 1 mls/hr 01/27/20 03:45 01/27/20 16:20 Sublimaze Ivpb IVPB 50 mcg/hr TITR JOSE 10 mls/hr Administration Protocol 5 MCG/HR Dextrose/Sodium Chloride 1,000 mls @ 25 mls/hr 01/27/20 12:30 01/27/20 12:35 D5-Ns - IV 25 mls/hr ASDIR JOSE Administration Insulin Aspart 1 vial 01/26/20 22:00 01/27/20 12:32 Novolog Vial Sliding Scale - SQ Not Given ACHS JOSE Protocol Mupirocin 1 applic 01/26/20 22:00 01/27/20 10:05 Bactroban Ointment (For Decolonization) - NS 01/31/20 21:59 1 applic BID JOSE Administration Laboratory Results - last 24 hr 01/26/20 01/26/20 01/26/20 19:20 21:20 22:48 WBC RBC Hgb Hct MCV MCH MCHC RDW Plt Count MPV Absolute Neuts (auto) Neutrophils % Lymphocytes % Monocytes % Eosinophils % Basophils % Nucleated RBC % Anticoagulation Therapy No Result Required. Puncture Site Right radial Patient Temperature No Result Required. ABG pH 7.481 H ABG pCO2 39.00 ABG pO2 69.0 L ABG HCO3 28.5 H ABG O2 Sat (Measured) 95.0 ABG O2 Content No Result Required. ABG Base Excess 4.7 H Sai Test Positive Patient On Oxygen Yes O2 Delivery Device Vent Oxygen Flow Rate No Result Required. Vent Mode A/c Vent Rate 14 Mechanical Rate No Result Required. PEEP 5.0 Pressure Support Vent 400 Sodium Potassium Chloride Carbon Dioxide Anion Gap BUN Creatinine Est GFR (CKD-EPI)AfAm Est GFR (CKD-EPI)NonAf POC Glucometer 164 Random Glucose Lactic Acid Calcium Phosphorus Magnesium Total Bilirubin AST ALT Alkaline Phosphatase Troponin I Total Protein Albumin 01/26/20 01/26/20 01/26/20 23:40 23:40 23:40 WBC 16.4 H RBC 3.16 L Hgb 9.8 L Hct 30.9 L MCV 97.8 H MCH 31.0 MCHC 31.7 L RDW 19.3 H Plt Count 368 MPV 9.8 Absolute Neuts (auto) 14.2 H Neutrophils % 86.7 H Lymphocytes % 6.7 L D Monocytes % 5.2 Eosinophils % 0.7 Basophils % 0.7 Nucleated RBC % 0 Anticoagulation Therapy Puncture Site Patient Temperature ABG pH ABG pCO2 ABG pO2 ABG HCO3 ABG O2 Sat (Measured) ABG O2 Content ABG Base Excess Sia Test Patient On Oxygen O2 Delivery Device Oxygen Flow Rate Vent Mode Vent Rate Mechanical Rate PEEP Pressure Support Vent Sodium 146 H Potassium 4.1 Chloride 108 H Carbon Dioxide 30 Anion Gap 8 BUN 38.9 H Creatinine 3.4 H Est GFR (CKD-EPI)AfAm 14.43 Est GFR (CKD-EPI)NonAf 12.45 POC Glucometer Random Glucose 138 H Lactic Acid 1.9 Calcium 8.4 L Phosphorus Magnesium Total Bilirubin 0.2 AST 45 H ALT 16 Alkaline Phosphatase 197 H Troponin I 0.22 H Total Protein 5.5 L Albumin 1.2 L 01/27/20 01/27/20 01/27/20 05:00 05:00 06:07 WBC 19.2 H RBC 3.13 L Hgb 9.6 L Hct 30.3 L MCV 96.6 H MCH 30.6 MCHC 31.6 L RDW 19.7 H Plt Count 385 MPV 9.4 Absolute Neuts (auto) Neutrophils % Lymphocytes % Monocytes % Eosinophils % Basophils % Nucleated RBC % Anticoagulation Therapy Puncture Site Patient Temperature ABG pH ABG pCO2 ABG pO2 ABG HCO3 ABG O2 Sat (Measured) ABG O2 Content ABG Base Excess Sai Test Patient On Oxygen O2 Delivery Device Oxygen Flow Rate Vent Mode Vent Rate Mechanical Rate PEEP Pressure Support Vent Sodium 145 Potassium 3.9 Chloride 108 H Carbon Dioxide 32 Anion Gap 6 L BUN 38.7 H Creatinine 3.3 H Est GFR (CKD-EPI)AfAm 14.96 Est GFR (CKD-EPI)NonAf 12.91 POC Glucometer 35 Random Glucose 56 L Lactic Acid Calcium 7.6 L Phosphorus 3.1 Magnesium 2.1 Total Bilirubin 0.3 AST 45 H ALT 16 Alkaline Phosphatase 151 H Troponin I 0.32 H Total Protein 5.5 L Albumin 1.2 L 01/27/20 01/27/20 01/27/20 07:05 11:53 12:27 WBC RBC Hgb Hct MCV MCH MCHC RDW Plt Count MPV Absolute Neuts (auto) Neutrophils % Lymphocytes % Monocytes % Eosinophils % Basophils % Nucleated RBC % Anticoagulation Therapy No Result Required. Puncture Site Left radial Patient Temperature No Result Required. ABG pH 7.527 H ABG pCO2 38.50 ABG pO2 389.2 H ABG HCO3 31.2 H ABG O2 Sat (Measured) 99.8 H ABG O2 Content No Result Required. ABG Base Excess 7.9 H Sai Test Positive Patient On Oxygen Yes O2 Delivery Device No Result Required. Oxygen Flow Rate 70 Vent Mode A/c Vent Rate 14 Mechanical Rate No Result Required. PEEP 5.0 Pressure Support Vent 400 Sodium Potassium Chloride Carbon Dioxide Anion Gap BUN Creatinine Est GFR (CKD-EPI)AfAm Est GFR (CKD-EPI)NonAf POC Glucometer 119 36 Random Glucose Lactic Acid Calcium Phosphorus Magnesium Total Bilirubin AST ALT Alkaline Phosphatase Troponin I Total Protein Albumin 01/27/20 01/27/20 01/27/20 12:40 13:58 16:28 WBC RBC Hgb Hct MCV MCH MCHC RDW Plt Count MPV Absolute Neuts (auto) Neutrophils % Lymphocytes % Monocytes % Eosinophils % Basophils % Nucleated RBC % Anticoagulation Therapy Puncture Site Patient Temperature ABG pH ABG pCO2 ABG pO2 ABG HCO3 ABG O2 Sat (Measured) ABG O2 Content ABG Base Excess Sai Test Patient On Oxygen O2 Delivery Device Oxygen Flow Rate Vent Mode Vent Rate Mechanical Rate PEEP Pressure Support Vent Sodium Potassium Chloride Carbon Dioxide Anion Gap BUN Creatinine Est GFR (CKD-EPI)AfAm Est GFR (CKD-EPI)NonAf POC Glucometer 83 84 72 Random Glucose Lactic Acid Calcium Phosphorus Magnesium Total Bilirubin AST ALT Alkaline Phosphatase Troponin I Total Protein Albumin intubated S1 S2 RRR Lungs decreased Abd- soft, NT No edema sedated A/P Acute right temporoparietal infarct previous CVA ESRD on HD aspiration pneumonia acute respiratory failure -- NG feeding -- on sedation -- iv antibiotics -- pt is now FULL CODE -- continue with current care -- poor prognosis Problem List - Problems (1) Altered mental status Code(s): R41.82 - ALTERED MENTAL STATUS, UNSPECIFIED (2) Lactic acidosis Code(s): E87.2 - ACIDOSIS (3) Pneumonia, aspiration Code(s): J69.0 - PNEUMONITIS DUE TO INHALATION OF FOOD AND VOMIT (4) Stroke Code(s): I63.9 - CEREBRAL INFARCTION, UNSPECIFIED (5) ESRD on dialysis Code(s): N18.6 - END STAGE RENAL DISEASE; Z99.2 - DEPENDENCE ON RENAL DIALYSIS (6) Hypertension Code(s): I10 - ESSENTIAL (PRIMARY) HYPERTENSION
[2020-01-27] MEDS ORDERED: DEXTROSE 5%-NORMAL SALINE 1,000 ML IV SCH (12:30)
[2020-01-27] MEDS ORDERED: DEXTROSE 50%-WATER - 25 GM/50 ML VIAL IVPUSH PRN (12:33)
--- NOTE | 2020-01-27 15:19 | PN ---
Progress Note, Physician History of Present Illness: Pt seen and examined at bedside. She is now in the ICU. She was intubated for resp failure. - Current Medication List Current Medications: Active Medications Chlorhexidine Gluconate (Hibiclens For Decolonization -) 1 applic TP HS [facility] Last Admin: 01/26/20 22:46 Dose: 1 applic Documented by: Collagenase (Santyl -) 1 applic TP DAILY JOSE; Protocol Last Admin: 01/27/20 12:05 Dose: 1 applic Documented by: Piperacillin Sod/Tazobactam (Sod 2.25 gm/ Dextrose) 50 mls @ 100 mls/hr IVPB Q8H-IV JOSE; Protocol Last Admin: 01/27/20 10:05 Dose: 100 mls/hr Documented by: Sodium Chloride (Normal Saline -) 250 mls @ 3,000 mls/hr IV PRN PRN PRN Reason: Hypotension during Dialysis Stop: 01/27/20 14:39 Fentanyl (Sublimaze Ivpb) 500 mcg in 100 mls @ 1 mls/hr IVPB TITR [facility]; Protocol Last Admin: 01/27/20 04:56 Dose: 25 mcg/hr, 5 mls/hr Documented by: Dextrose/Sodium Chloride (D5-Ns -) 1,000 mls @ 25 mls/hr IV ASDIR [facility] Last Admin: 01/27/20 12:35 Dose: 25 mls/hr Documented by: Insulin Aspart (Novolog Vial Sliding Scale -) 1 vial SQ ACHS [facility]; Protocol Last Admin: 01/27/20 12:32 Dose: Not Given Documented by: Mupirocin (Bactroban Ointment (For Decolonization) -) 1 applic NS BID [facility] Stop: 01/31/20 21:59 Last Admin: 01/27/20 10:05 Dose: 1 applic Documented by: - Objective Vital Signs: Vital Signs Temperature 97.4 F L 01/27/20 04:00 Pulse Rate 70 01/27/20 12:06 Respiratory Rate 14 01/27/20 12:53 Blood Pressure 143/70 01/27/20 12:06 O2 Sat by Pulse Oximetry (%) 97 01/27/20 12:53 Constitutional: Yes: Calm Eyes: Yes: Conjunctiva Clear Cardiovascular: Yes: S1, S2 Respiratory: Yes: Mechanically Ventilated Gastrointestinal: Yes: Soft Genitourinary: Yes: Incontinence Musculoskeletal: Yes: Muscle Weakness Edema: No Neurological: Yes: Lethargy Labs: CBC, BMP 01/27/20 05:00 01/27/20 05:00 INR, PTT INR 1.11 (0.83-1.09) H 01/23/20 12:25 - ....Imaging Chest X-ray: Report Reviewed Problem List - Problems (1) ESRD on dialysis Code(s): N18.6 - END STAGE RENAL DISEASE; Z99.2 - DEPENDENCE ON RENAL DIALYSIS Assessment/Plan Current Medications Generic Name Dose Route Start Last Admin Trade Name Freq PRN Reason Stop Dose Admin Chlorhexidine Gluconate 1 applic 01/26/20 22:00 01/26/20 22:46 Hibiclens For Decolonization - TP 1 applic HS JOSE Administration Collagenase 1 applic 01/27/20 10:00 01/27/20 12:05 Santyl - TP 1 applic DAILY JOSE Administration Protocol Piperacillin Sod/Tazobactam 50 mls @ 100 mls/hr 01/27/20 02:00 01/27/20 10:05 Sod 2.25 gm/ Dextrose IVPB 100 mls/hr Q8H-IV JOSE Administration Protocol Sodium Chloride 250 mls @ 3,000 mls/hr 01/26/20 20:45 Normal Saline - IV 01/27/20 14:39 PRN PRN Hypotension during Dialysis Fentanyl 500 mcg in 100 mls @ 1 mls/hr 01/27/20 03:45 01/27/20 04:56 Sublimaze Ivpb IVPB 25 mcg/hr TITR JOSE 5 mls/hr Administration Protocol 5 MCG/HR Dextrose/Sodium Chloride 1,000 mls @ 25 mls/hr 01/27/20 12:30 01/27/20 12:35 D5-Ns - IV 25 mls/hr ASDIR JO[facility] Administration Insulin Aspart 1 vial 01/26/20 22:00 01/27/20 12:32 Novolog Vial Sliding Scale - SQ Not Given ACHS JOSE Protocol Mupirocin 1 applic 01/26/20 22:00 01/27/20 10:05 Bactroban Ointment (For Decolonization) - NS 01/31/20 21:59 1 applic BID JOSE Administration Impression 1. esrd 2. Acute right temporoparietal infarct 3. previous CVA 4. aspiration pneumonia 5. htn 6. hld 7. acute resp failure Plan - HD today at bedside in ICU - vents support - nepro for feeds - cont ICU care - discuss GOC with family - unable to UF much as she was hypotensive
[2020-01-27] MEDS: CHLORHEXIDINE GLUCONATE 4% CLEANSER FOR DECOLONIZATION TP SCH (21:52)
[2020-01-27] MEDS: DEXTROSE 10%-WATER - 1,000 ML IV SCH (22:09)
[2020-01-28] MEDS ORDERED: DEXTROSE 5%-WATER - 50 ML IVPB ONE ×2 (02:04→10:00)
[2020-01-28] MEDS ORDERED: PIPERACILLIN/TAZOBACTAM 2.25 GM VIAL IVPB ONE ×2 (02:04→10:00)
[2020-01-28] MEDS: PIPERACILLIN/TAZOB 2.25 GM 2.25 GM in DEXTROSE 5%-WATER - 50 ML IVPB SCH ×2 (02:08→10:01)
[2020-01-28 06:20] LABS: HEMATOCRIT 25.3 % (32.4-45.2); MCH 30.9 pg (25.7-33.7); MCHC 31.6 g/dl (32.0-36.0); MEAN CELL VOLUME 97.7 fl (80-96); MEAN PLT VOLUME 9.9 fl (7.5-11.1); PLATELET COUNT 306 K/MM3 (134-434); RBC 2.59 M/mm3 (3.60-5.2); RDW 19.7 % (11.6-15.6); WHITE BLOOD COUNT 11.9 K/mm3 (4.0-10.0)
[2020-01-28 06:55] LABS: ARTERIAL BLD GAS O2 SATURATION 97.9 mmHg (95-98); ARTERIAL BLOOD GAS PO2 106.2 mmHg (80-100); ARTERIAL BLOOD GAS pH 7.418 (7.350-7.450)
[2020-01-28 06:57] LABS: ALLENS TEST POSITIVE
[2020-01-28 06:58] LABS: VENT MODE A/C; VENT RATE 12
[2020-01-28 07:02] LABS: ALBUMIN 1.8 g/dl (3.4-5.0); BILIRUBIN,DIRECT 0.1 mg/dL (0.0-0.2); BILIRUBIN,TOTAL 0.3 mg/dL (0.2-1); BLOOD UREA NITROGEN 22.2 mg/dL (7-18); CALCIUM 8.3 mg/dL (8.5-10.1); CREATININE 2.4 mg/dL (0.55-1.3); MAGNESIUM 2.1 mg/dL (1.8-2.4); PHOSPHOROUS 3.7 mg/dL (2.5-4.9); TOT PROT 5.4 g/dl (6.4-8.2)
[2020-01-28] MEDS: INSULIN SLIDING SCALE (NOVOLOG) 1 VIAL SQ SCH ×4 (07:21→22:07)
[2020-01-28] MEDS: FENTANYL IVPB 500 MCG/100 ML BAG IVPB SCH (07:55)
--- NOTE | 2020-01-28 08:09 | PN ---
Progress Note (short form) - Note Progress Note: Pulm/CCM Pt seen and examined in the ICU. Last HD on 01/26. Remains intubated, off sedation at this time, RASS -2, not following commands. Vent ACPC 12/350/30%/+5. Corrected hypoglycemia, on D10 at 25 ml/hr Active Medications Chlorhexidine Gluconate (Hibiclens For Decolonization -) 1 applic TP HS [facility] Last Admin: 01/27/20 21:52 Dose: 1 applic Documented by: Collagenase (Santyl -) 1 applic TP DAILY [facility]; Protocol Last Admin: 01/28/20 10:01 Dose: 1 applic Documented by: Piperacillin Sod/Tazobactam (Sod 2.25 gm/ Dextrose) 50 mls @ 100 mls/hr IVPB Q8H-IV [facility]; Protocol Last Admin: 01/28/20 10:01 Dose: 100 mls/hr Documented by: Sodium Chloride (Normal Saline -) 250 mls @ 3,000 mls/hr IV PRN PRN PRN Reason: Hypotension during Dialysis Stop: 01/27/20 14:39 Fentanyl (Sublimaze Ivpb) 500 mcg in 100 mls @ 1 mls/hr IVPB TITR [facility]; Protocol Last Titration: 01/28/20 07:55 Dose: 0 mcg/hr, 0 mls/hr Documented by: Dextrose (D10w -) 1,000 mls @ 25 mls/hr IV ASDIR [facility] Last Admin: 01/27/20 22:09 Dose: 25 mls/hr Documented by: Insulin Aspart (Novolog Vial Sliding Scale -) 1 vial SQ ACHS [facility]; Protocol Last Admin: 01/28/20 11:47 Dose: Not Given Documented by: Mupirocin (Bactroban Ointment (For Decolonization) -) 1 applic NS BID [facility] Stop: 01/31/20 21:59 Last Admin: 01/28/20 10:02 Dose: 1 applic Documented by: Vital Signs Period Temp Pulse Resp BP Sys/Ramirez Pulse Ox Last 24 Hr 97.1 F-97.7 F 74-86 10-19 88-134/50-80 97-100 Intake & Output 01/25/20 01/26/20 01/27/20 01/28/20 23:59 23:59 23:59 23:59 Intake Total 1610 1110 639 420 Output Total 1500 0 0 Balance 110 1110 639 420 Gen: Intuabted, off sedation Neuro: RASS-2,-3 Lungs: CTA CV: S1S2 Ext: Warm; 2+ edema CBC, BMP 01/28/20 05:40 01/28/20 05:40 Microbiology 01/24/20 12:51 Blood - Peripheral Venous Blood Culture - Preliminary NO GROWTH OBTAINED AFTER 72 HOURS, INCUBATION TO CONTINUE FOR 2 DAYS. 01/24/20 12:42 Blood - Peripheral Venous Blood Culture - Preliminary NO GROWTH OBTAINED AFTER 72 HOURS, INCUBATION TO CONTINUE FOR 2 DAYS. 01/14/20 20:10 Blood - Peripheral Venous Blood Culture - Final NO GROWTH AFTER 5 DAYS INCUBATION 01/14/20 20:10 Blood - Peripheral Venous Blood Culture - Final NO GROWTH AFTER 5 DAYS INCUBATION Assessment/Plan Acute CVA Pneumonia likely Aspiration ESRD on HD HTN DM Hyperlipidemia h/o CVA -LTVV; goal plat<30 -Wean FiO2 for O2 sat >92% -Pulm toilet; aspiration precautions -Sedation vacation -Cont empiric antib coverage -D10 at 25 ml/hr -Monitor BMP and electrolytes -HD as per nephrology -Renal recs appreciated -VTE prophylaxis and GI proph -Will start TF -Poor overall prognosis -Cont goals of care discussion with family Margueritekaylah Gallo, ACNP [id number] Problem List - Problems (1) ESRD on dialysis Code(s): N18.6 - END STAGE RENAL DISEASE; Z99.2 - DEPENDENCE ON RENAL DIALYSIS (2) Altered mental status Code(s): R41.82 - ALTERED MENTAL STATUS, UNSPECIFIED (3) Diabetes Code(s): E11.9 - TYPE 2 DIABETES MELLITUS WITHOUT COMPLICATIONS (4) Lactic acidosis Code(s): E87.2 - ACIDOSIS (5) Pneumonia, aspiration Code(s): J69.0 - PNEUMONITIS DUE TO INHALATION OF FOOD AND VOMIT
[2020-01-28] MEDS: COLLAGENASE CLOSTRIDIUM HIST. 30 GRAMS TUBE TP SCH (10:01)
[2020-01-28] MEDS: MUPIROCIN 2% TOPICAL OINTMENT FOR DECOLONIZATION NS SCH ×2 (10:02→22:06)
[2020-01-28] MEDS ORDERED: DEXTROSE 50%-WATER 25 GM/50 ML DISP.SYRIN ONE (11:44)
--- NOTE | 2020-01-28 12:19 | PN ---
Progress Note (short form) - Note Progress Note: s/p rapid response for acute respiratory failure she opens eyes intubated- on ventilator in ICU Vital Signs - 24 hr 01/27/20 01/27/20 01/27/20 16:25 17:17 17:22 Temperature Pulse Rate 75 75 Respiratory 14 12 14 Rate Blood Pressure 134/62 120/62 O2 Sat by Pulse 100 100 Oximetry (%) 01/27/20 01/27/20 01/27/20 18:29 19:00 20:00 Temperature Pulse Rate 75 75 74 Respiratory 14 12 12 Rate Blood Pressure 110/59 L 104/54 L 105/54 L O2 Sat by Pulse 100 100 100 Oximetry (%) 01/27/20 01/27/20 01/27/20 20:42 21:00 22:00 Temperature 97.1 F L Pulse Rate 77 78 Respiratory 12 12 12 Rate Blood Pressure 99/50 L 97/50 L O2 Sat by Pulse 100 100 100 Oximetry (%) 01/27/20 01/27/20 01/28/20 23:42 23:47 00:00 Temperature Pulse Rate 79 84 Respiratory 12 12 19 Rate Blood Pressure 99/60 93/56 L O2 Sat by Pulse 99 100 100 Oximetry (%) 01/28/20 01/28/20 01/28/20 01:00 02:00 03:00 Temperature 97.7 F Pulse Rate 85 86 85 Respiratory 14 12 11 Rate Blood Pressure 106/57 L 98/54 L 91/52 L O2 Sat by Pulse 100 99 100 Oximetry (%) 01/28/20 01/28/20 01/28/20 04:00 04:35 05:00 Temperature Pulse Rate 86 85 Respiratory 11 12 10 Rate Blood Pressure 88/53 L 89/53 L O2 Sat by Pulse 100 100 Oximetry (%) 01/28/20 01/28/20 01/28/20 06:00 08:07 09:00 Temperature 97.2 F L Pulse Rate 85 80 Respiratory 12 12 Rate Blood Pressure 102/56 L O2 Sat by Pulse 100 100 100 Oximetry (%) 01/28/20 01/28/20 01/28/20 10:00 11:44 14:00 Temperature 97.6 F Pulse Rate 79 81 Respiratory 12 10 13 Rate Blood Pressure 113/60 119/61 O2 Sat by Pulse 100 99 95 Oximetry (%) Current Medications Generic Name Dose Route Start Last Admin Trade Name Freq PRN Reason Stop Dose Admin Chlorhexidine Gluconate 1 applic 01/26/20 22:00 01/27/20 21:52 Hibiclens For Decolonization - TP 1 applic HS JOSE Administration Collagenase 1 applic 01/27/20 10:00 01/28/20 10:01 Santyl - TP 1 applic DAILY JOSE Administration Protocol Piperacillin Sod/Tazobactam 50 mls @ 100 mls/hr 01/27/20 02:00 01/28/20 10:01 Sod 2.25 gm/ Dextrose IVPB 100 mls/hr Q8H-IV JOSE Administration Protocol Sodium Chloride 250 mls @ 3,000 mls/hr 01/26/20 20:45 Normal Saline - IV 01/27/20 14:39 PRN PRN Hypotension during Dialysis Fentanyl 500 mcg in 100 mls @ 1 mls/hr 01/27/20 03:45 01/28/20 07:55 Sublimaze Ivpb IVPB 0 mcg/hr TITR JOSE 0 mls/hr Titration Protocol 5 MCG/HR Dextrose 1,000 mls @ 25 mls/hr 01/27/20 21:45 01/27/20 22:09 D10w - IV 25 mls/hr ASDIR JOSE Administration Insulin Aspart 1 vial 01/28/20 07:00 01/28/20 11:47 Novolog Vial Sliding Scale - SQ Not Given ACHS JOSE Protocol Mupirocin 1 applic 01/26/20 22:00 01/28/20 10:02 Bactroban Ointment (For Decolonization) - NS 01/31/20 21:59 1 applic BID JOSE Administration Laboratory Results - last 24 hr 01/27/20 01/27/20 01/28/20 16:28 21:41 00:05 WBC RBC Hgb Hct MCV MCH MCHC RDW Plt Count MPV Anticoagulation Therapy Puncture Site Patient Temperature ABG pH ABG pCO2 ABG pO2 ABG HCO3 ABG O2 Sat (Measured) ABG O2 Content ABG Base Excess Sai Test Patient On Oxygen O2 Delivery Device Oxygen Flow Rate Vent Mode Vent Rate Mechanical Rate PEEP Pressure Support Vent Sodium Potassium Chloride Carbon Dioxide Anion Gap BUN Creatinine Est GFR (CKD-EPI)AfAm Est GFR (CKD-EPI)NonAf POC Glucometer 72 61 105 Random Glucose Calcium Phosphorus Magnesium Total Bilirubin Direct Bilirubin AST ALT Alkaline Phosphatase Total Protein Albumin 01/28/20 01/28/20 01/28/20 05:40 05:40 06:00 WBC 11.9 H RBC 2.59 L Hgb 8.0 L Hct 25.3 L D MCV 97.7 H MCH 30.9 MCHC 31.6 L RDW 19.7 H Plt Count 306 D MPV 9.9 Anticoagulation Therapy No Result Required. Puncture Site Left radial Patient Temperature No Result Required. ABG pH 7.418 ABG pCO2 45.90 H ABG pO2 106.2 H ABG HCO3 29.0 H ABG O2 Sat (Measured) 97.9 ABG O2 Content No Result Required. ABG Base Excess 4.0 H Sai Test Positive Patient On Oxygen Yes O2 Delivery Device Vent Oxygen Flow Rate 30% Vent Mode A/c Vent Rate 12 Mechanical Rate Yes PEEP 5.0 Pressure Support Vent 350 Sodium 142 Potassium 4.0 Chloride 104 Carbon Dioxide 32 Anion Gap 6 L BUN 22.2 H Creatinine 2.4 H Est GFR (CKD-EPI)AfAm 21.99 Est GFR (CKD-EPI)NonAf 18.97 POC Glucometer Random Glucose 190 H Calcium 8.3 L Phosphorus 3.7 Magnesium 2.1 Total Bilirubin 0.3 Direct Bilirubin 0.1 AST 47 H ALT 17 Alkaline Phosphatase 141 H Total Protein 5.4 L Albumin 1.8 L 01/28/20 01/28/20 01/28/20 06:00 07:19 11:41 WBC RBC Hgb Hct MCV MCH MCHC RDW Plt Count MPV Anticoagulation Therapy Puncture Site Patient Temperature ABG pH ABG pCO2 ABG pO2 ABG HCO3 ABG O2 Sat (Measured) ABG O2 Content ABG Base Excess Sai Test Patient On Oxygen O2 Delivery Device Oxygen Flow Rate Vent Mode Vent Rate Mechanical Rate PEEP Pressure Support Vent Sodium Potassium Chloride Carbon Dioxide Anion Gap BUN Creatinine Est GFR (CKD-EPI)AfAm Est GFR (CKD-EPI)NonAf POC Glucometer 152 141 14 Random Glucose Calcium Phosphorus Magnesium Total Bilirubin Direct Bilirubin AST ALT Alkaline Phosphatase Total Protein Albumin 01/28/20 01/28/20 11:44 14:30 WBC 12.7 H RBC 2.60 L Hgb 8.1 L Hct 25.6 L MCV 98.3 H MCH 31.3 MCHC 31.8 L RDW 19.7 H Plt Count 306 MPV 10.1 Anticoagulation Therapy Puncture Site Patient Temperature ABG pH ABG pCO2 ABG pO2 ABG HCO3 ABG O2 Sat (Measured) ABG O2 Content ABG Base Excess Sai Test Patient On Oxygen O2 Delivery Device Oxygen Flow Rate Vent Mode Vent Rate Mechanical Rate PEEP Pressure Support Vent Sodium Potassium Chloride Carbon Dioxide Anion Gap BUN Creatinine Est GFR (CKD-EPI)AfAm Est GFR (CKD-EPI)NonAf POC Glucometer 131 Random Glucose Calcium Phosphorus Magnesium Total Bilirubin Direct Bilirubin AST ALT Alkaline Phosphatase Total Protein Albumin intubated S1 S2 RRR Lungs decreased Abd- soft, NT No edema sedated A/P Acute right temporoparietal infarct previous CVA ESRD on HD aspiration pneumonia acute respiratory failure -- NG feeding to start -- on sedation -- iv antibiotics -- pt is now FULL CODE -- continue with current care -- poor prognosis -- palliative care eval- family wants everything to be done Problem List - Problems (1) Altered mental status Code(s): R41.82 - ALTERED MENTAL STATUS, UNSPECIFIED (2) Lactic acidosis Code(s): E87.2 - ACIDOSIS (3) Pneumonia, aspiration Code(s): J69.0 - PNEUMONITIS DUE TO INHALATION OF FOOD AND VOMIT (4) Stroke Code(s): I63.9 - CEREBRAL INFARCTION, UNSPECIFIED (5) ESRD on dialysis Code(s): N18.6 - END STAGE RENAL DISEASE; Z99.2 - DEPENDENCE ON RENAL DIALYSIS (6) Hypertension Code(s): I10 - ESSENTIAL (PRIMARY) HYPERTENSION
[2020-01-28 15:23] LABS: HEMATOCRIT 25.6 % (32.4-45.2); HEMOGLOBIN 8.1 GM/dL (10.7-15.3); MCH 31.3 pg (25.7-33.7); MCHC 31.8 g/dl (32.0-36.0); MEAN CELL VOLUME 98.3 fl (80-96); MEAN PLT VOLUME 10.1 fl (7.5-11.1); PLATELET COUNT 306 K/MM3 (134-434); RDW 19.7 % (11.6-15.6); WHITE BLOOD COUNT 12.7 K/mm3 (4.0-10.0)
--- NOTE | 2020-01-28 15:53 | PN ---
Progress Note, Physician History of Present Illness: Pt seen and examined at bedside. She remains in the ICU. She remains intubated. - Current Medication List Current Medications: Active Medications Chlorhexidine Gluconate (Hibiclens For Decolonization -) 1 applic TP HS [facility] Last Admin: 01/27/20 21:52 Dose: 1 applic Documented by: Collagenase (Santyl -) 1 applic TP DAILY [facility]; Protocol Last Admin: 01/28/20 10:01 Dose: 1 applic Documented by: Piperacillin Sod/Tazobactam (Sod 2.25 gm/ Dextrose) 50 mls @ 100 mls/hr IVPB Q8H-IV [facility]; Protocol Last Admin: 01/28/20 10:01 Dose: 100 mls/hr Documented by: Sodium Chloride (Normal Saline -) 250 mls @ 3,000 mls/hr IV PRN PRN PRN Reason: Hypotension during Dialysis Stop: 01/27/20 14:39 Fentanyl (Sublimaze Ivpb) 500 mcg in 100 mls @ 1 mls/hr IVPB TITR [facility]; Protocol Last Titration: 01/28/20 07:55 Dose: 0 mcg/hr, 0 mls/hr Documented by: Dextrose (D10w -) 1,000 mls @ 25 mls/hr IV ASDIR [facility] Last Admin: 01/27/20 22:09 Dose: 25 mls/hr Documented by: Insulin Aspart (Novolog Vial Sliding Scale -) 1 vial SQ ACHS [facility]; Protocol Last Admin: 01/28/20 11:47 Dose: Not Given Documented by: Mupirocin (Bactroban Ointment (For Decolonization) -) 1 applic NS BID [facility] Stop: 01/31/20 21:59 Last Admin: 01/28/20 10:02 Dose: 1 applic Documented by: - Objective Vital Signs: Vital Signs Temperature 97.6 F 01/28/20 14:00 Pulse Rate 81 01/28/20 14:00 Respiratory Rate 13 01/28/20 14:00 Blood Pressure 119/61 01/28/20 14:00 O2 Sat by Pulse Oximetry (%) 95 01/28/20 14:00 Constitutional: Yes: Calm Eyes: Yes: Conjunctiva Clear HENT: Yes: Atraumatic Neck: Yes: Supple Cardiovascular: Yes: S1, S2 Respiratory: Yes: Mechanically Ventilated Gastrointestinal: Yes: Normal Bowel Sounds, Soft Genitourinary: Yes: Incontinence Musculoskeletal: Yes: Muscle Weakness Edema: No Neurological: Yes: Lethargy Labs: CBC, BMP 01/28/20 14:30 01/28/20 05:40 INR, PTT INR 1.11 (0.83-1.09) H 01/23/20 12:25 Problem List - Problems (1) ESRD on dialysis Code(s): N18.6 - END STAGE RENAL DISEASE; Z99.2 - DEPENDENCE ON RENAL DIALYSIS Assessment/Plan Current Medications Generic Name Dose Route Start Last Admin Trade Name Freq PRN Reason Stop Dose Admin Chlorhexidine Gluconate 1 applic 01/26/20 22:00 01/27/20 21:52 Hibiclens For Decolonization - TP 1 applic HS JOSE Administration Collagenase 1 applic 01/27/20 10:00 01/28/20 10:01 Santyl - TP 1 applic DAILY JOSE Administration Protocol Piperacillin Sod/Tazobactam 50 mls @ 100 mls/hr 01/27/20 02:00 01/28/20 10:01 Sod 2.25 gm/ Dextrose IVPB 100 mls/hr Q8H-IV JOSE Administration Protocol Sodium Chloride 250 mls @ 3,000 mls/hr 01/26/20 20:45 Normal Saline - IV 01/27/20 14:39 PRN PRN Hypotension during Dialysis Fentanyl 500 mcg in 100 mls @ 1 mls/hr 01/27/20 03:45 01/28/20 07:55 Sublimaze Ivpb IVPB 0 mcg/hr TITR JOSE 0 mls/hr Titration Protocol 5 MCG/HR Dextrose 1,000 mls @ 25 mls/hr 01/27/20 21:45 01/27/20 22:09 D10w - IV 25 mls/hr ASDIR JO[facility] Administration Insulin Aspart 1 vial 01/28/20 07:00 01/28/20 11:47 Novolog Vial Sliding Scale - SQ Not Given ACHS JO[facility] Protocol Mupirocin 1 applic 01/26/20 22:00 01/28/20 10:02 Bactroban Ointment (For Decolonization) - NS 01/31/20 21:59 1 applic BID JOSE Administration Impression 1. esrd 2. Acute right temporoparietal infarct 3. previous CVA 4. aspiration pneumonia 5. htn 6. hld 7. acute resp failure Plan - cont vent support - next HD on Wednesday - monito lytes - vents support - follow cxr - discussed with ICU team
--- NOTE | 2020-01-28 17:30 | EKG ---
Test Reason : Blood Pressure : / mmHG Vent. Rate : 073 BPM Atrial Rate : 073 BPM P-R Int : 158 ms QRS Dur : 134 ms QT Int : 500 ms P-R-T Axes : 065 -11 210 degrees QTc Int : 550 ms NORMAL SINUS RHYTHM LEFT BUNDLE BRANCH BLOCK ABNORMAL ECG WHEN COMPARED WITH ECG OF 14-JAN-2020 20:01, VENT. RATE HAS DECREASED BY 40 BPM LEFT BUNDLE BRANCH BLOCK IS NOW PRESENT Confirmed by MD Dennis, Paul ([id number]) on 01/28/2020 5:30:07 PM Referred By: Evelyn GUADALUPE Confirmed By:Paul Collins MD
[2020-01-28] MEDS: CHLORHEXIDINE GLUCONATE 4% CLEANSER FOR DECOLONIZATION TP SCH (22:06)
[2020-01-29] MEDS ORDERED: PIPERACILLIN/TAZOBACTAM 2.25 GM VIAL IVPB ONE ×3 (01:41→16:55)
[2020-01-29] MEDS ORDERED: DEXTROSE 5%-WATER - 50 ML IVPB ONE ×3 (01:41→16:55)
[2020-01-29] MEDS: PIPERACILLIN/TAZOB 2.25 GM 2.25 GM in DEXTROSE 5%-WATER - 50 ML IVPB SCH ×4 (02:11→20:17)
[2020-01-29 06:47] LABS: BASO % 0.5 % (0-2.0); EOS % 1.1 % (0-4.5); HEMATOCRIT 24.5 % (32.4-45.2); HEMOGLOBIN 7.9 GM/dL (10.7-15.3); MCH 31.3 pg (25.7-33.7); MCHC 32.4 g/dl (32.0-36.0); MEAN CELL VOLUME 96.6 fl (80-96); MEAN PLT VOLUME 9.8 fl (7.5-11.1); MONO % 6.3 % (3.8-10.2); NEUT % 83.1 % (42.8-82.8); PLATELET COUNT 368 K/MM3 (134-434); RBC 2.53 M/mm3 (3.60-5.2); RDW 19.1 % (11.6-15.6); WHITE BLOOD COUNT 11.1 K/mm3 (4.0-10.0)
[2020-01-29 07:09] LABS: ALBUMIN 1.5 g/dl (3.4-5.0); BILIRUBIN,TOTAL 0.3 mg/dL (0.2-1); BLOOD UREA NITROGEN 28.2 mg/dL (7-18); CALCIUM 8.3 mg/dL (8.5-10.1); MAGNESIUM 2.1 mg/dL (1.8-2.4); PHOSPHOROUS 4.5 mg/dL (2.5-4.9); POTASSIUM 4.2 mmol/L (3.5-5.1); TOT PROT 5.1 g/dl (6.4-8.2)
[2020-01-29] MEDS: INSULIN SLIDING SCALE (NOVOLOG) 1 VIAL SQ SCH ×4 (07:28→23:01)
[2020-01-29] MEDS: FENTANYL IVPB 500 MCG/100 ML BAG IVPB SCH (07:57)
--- NOTE | 2020-01-29 08:57 | PN ---
Physical Exam: SUBJECTIVE: Patient seen and examined. Pt remains intubated. OBJECTIVE: Vital Signs Period Temp Pulse Resp BP Sys/Ramirez Pulse Ox Last 24 Hr 97.6 F-98.3 F 79-87 10-20 113-141/60-79 92-100 GENERAL: Pt is responsive to touch. Grimaces to sternal rub. HEENT: NCAT, ETT in place. Pupils constricted and sluggish to light b/l. LUNGS: Intubated. b/l rhonchi present. HEART: Regular rate and rhythm. No murmurs. ABDOMEN: Bowel sounds present. Hypoactive. Soft, non-distended. EXTREMITIES: 1+ pitting edema b/l lower extremities. SKIN: Warm, dry Laboratory Last Values WBC 11.1 K/mm3 (4.0-10.0) H 01/29/20 05:40 RBC 2.53 M/mm3 (3.60-5.2) L 01/29/20 05:40 Hgb 7.9 GM/dL (10.7-15.3) L 01/29/20 05:40 Hct 24.5 % (32.4-45.2) L 01/29/20 05:40 MCV 96.6 fl (80-96) H 01/29/20 05:40 MCH 31.3 pg (25.7-33.7) 01/29/20 05:40 MCHC 32.4 g/dl (32.0-36.0) 01/29/20 05:40 RDW 19.1 % (11.6-15.6) H 01/29/20 05:40 Plt Count 368 K/MM3 (134-434) D 01/29/20 05:40 MPV 9.8 fl (7.5-11.1) 01/29/20 05:40 Absolute Neuts (auto) 9.2 K/mm3 (1.5-8.0) H 01/29/20 05:40 Total Counted 100 01/15/20 08:40 Neutrophils % 83.1 % (42.8-82.8) H 01/29/20 05:40 Neutrophils % (Manual) 79.0 % (42.8-82.8) 01/15/20 08:40 Band Neutrophils % 2.0 % 01/15/20 08:40 Lymphocytes % 9.0 % (8-40) D 01/29/20 05:40 Lymphocytes % (Manual) 13.0 % (8-40) 01/15/20 08:40 Monocytes % 6.3 % (3.8-10.2) 01/29/20 05:40 Monocytes % (Manual) 4 % (3.8-10.2) 01/15/20 08:40 Eosinophils % 1.1 % (0-4.5) 01/29/20 05:40 Eosinophils % (Manual) 0.0 % (0-4.5) 01/15/20 08:40 Basophils % 0.5 % (0-2.0) 01/29/20 05:40 Basophils % (Manual) 1.0 % (0-2.0) 01/15/20 08:40 Nucleated RBC % 0 % (0-0) 01/29/20 05:40 Metamyelocytes 1 % (0-2) 01/15/20 08:40 Hypochromia 0 01/18/20 06:10 Platelet Estimate Normal 01/18/20 06:10 Platelet Comment No clumping noted 01/15/20 08:40 Platelet Comment Large platelets 01/15/20 08:40 Polychromasia 1+ 01/18/20 06:10 Poikilocytosis 1+ 01/18/20 06:10 Anisocytosis 1+ 01/18/20 06:10 Microcytosis 1+ 01/18/20 06:10 Macrocytosis 0 01/18/20 06:10 [place] Cells 1+ 01/18/20 06:10 PT with INR 13.10 SEC (9.7-13.0) H 01/23/20 12:25 INR 1.11 (0.83-1.09) H 01/23/20 12:25 PTT (Actin FS) 29.7 SECONDS (25.2-36.5) 01/14/20 20:10 Anticoagulation Therapy No Result Required. 01/28/20 06:00 Puncture Site Left radial 01/28/20 06:00 Patient Temperature No Result Required. 01/28/20 06:00 ABG pH 7.418 (7.350-7.450) 01/28/20 06:00 ABG pCO2 45.90 mmHg (35-45) H 01/28/20 06:00 ABG pO2 106.2 mmHg (80-100) H 01/28/20 06:00 ABG HCO3 29.0 mmol/L (22-27) H 01/28/20 06:00 ABG O2 Sat (Measured) 97.9 mmHg (95-98) 01/28/20 06:00 ABG O2 Content No Result Required. 01/28/20 06:00 ABG Base Excess 4.0 mmol/L (-2-2) H 01/28/20 06:00 Sai Test Positive 01/28/20 06:00 VBG pH 7.309 (7.310-7.410) L 01/14/20 20:30 POC VBG pCO2 50.0 mmHg (38-52) 01/14/20 20:30 POC VBG pO2 68.5 mmHg (28-48) H 01/14/20 20:30 VBG HCO3 24.6 mmol/L (23-29) 01/14/20 20:30 VBG O2 Sat (Rayray) 91.9 % (70-80) H 01/14/20 20:30 VBG Base Excess -2.2 mmol/L (-2-2) L 01/14/20 20:30 Patient On Oxygen Yes 01/28/20 06:00 O2 Delivery Device Vent 01/28/20 06:00 Oxygen Flow Rate 30% 01/28/20 06:00 Vent Mode A/c 01/28/20 06:00 Vent Rate 12 01/28/20 06:00 Mechanical Rate Yes 01/28/20 06:00 PEEP 5.0 cmH2O 01/28/20 06:00 Pressure Support Vent 350 01/28/20 06:00 Sodium 141 mmol/L (136-145) 01/29/20 05:40 Potassium 4.2 mmol/L (3.5-5.1) 01/29/20 05:40 Chloride 103 mmol/L (98-107) 01/29/20 05:40 Carbon Dioxide 31 mmol/L (21-32) 01/29/20 05:40 Anion Gap 8 MMOL/L (8-16) 01/29/20 05:40 BUN 28.2 mg/dL (7-18) H 01/29/20 05:40 Creatinine 3.0 mg/dL (0.55-1.3) H 01/29/20 05:40 Est GFR (CKD-EPI)AfAm 16.79 01/29/20 05:40 Est GFR (CKD-EPI)NonAf 14.49 01/29/20 05:40 POC Glucometer 132 UNITS (80-120) 01/29/20 11:24 Random Glucose 143 mg/dL (74-106) H 01/29/20 05:40 Lactic Acid 1.9 mmol/L (0.4-2.0) 01/26/20 23:40 Calcium 8.3 mg/dL (8.5-10.1) L 01/29/20 05:40 Phosphorus 4.5 mg/dL (2.5-4.9) 01/29/20 05:40 Magnesium 2.1 mg/dL (1.8-2.4) 01/29/20 05:40 Total Bilirubin 0.3 mg/dL (0.2-1) 01/29/20 05:40 Direct Bilirubin 0.1 mg/dL (0.0-0.2) 01/28/20 05:40 AST 41 U/L (15-37) H 01/29/20 05:40 ALT 16 U/L (13-61) 01/29/20 05:40 Alkaline Phosphatase 152 U/L (45-117) H 01/29/20 05:40 Troponin I 0.32 ng/ml (0.00-0.05) H 01/27/20 05:00 Total Protein 5.1 g/dl (6.4-8.2) L 01/29/20 05:40 Albumin 1.5 g/dl (3.4-5.0) L 01/29/20 05:40 Beta-Hydroxybutyrate 8.7 mg/dL (0.2-2.8) H 01/15/20 08:40 TSH 1.32 uIU/ml (0.358-3.74) 01/14/20 20:10 COVID-19 ([facility]) Not detected (Not Detected) 01/15/20 00:30 Hep Bs Antigen Negative (Negative) 01/15/20 14:50 Hep C Ab Diagnostic 0.1 s/co ratio (0.0-0.9) 01/15/20 14:50 Active Medications Chlorhexidine Gluconate (Hibiclens For Decolonization -) 1 applic TP HS [facility] Last Admin: 01/28/20 22:06 Dose: 1 applic Documented by: Collagenase (Santyl -) 1 applic TP DAILY [facility]; Protocol Last Admin: 01/28/20 10:01 Dose: 1 applic Documented by: Piperacillin Sod/Tazobactam (Sod 2.25 gm/ Dextrose) 50 mls @ 100 mls/hr IVPB Q8H-IV [facility]; Protocol Last Admin: 01/29/20 10:42 Dose: 100 mls/hr Documented by: Sodium Chloride (Normal Saline -) 250 mls @ 3,000 mls/hr IV PRN PRN PRN Reason: Hypotension during Dialysis Stop: 01/27/20 14:39 Fentanyl (Sublimaze Ivpb) 500 mcg in 100 mls @ 1 mls/hr IVPB TITR [facility]; Protocol Last Admin: 01/29/20 07:57 Dose: Not Given Documented by: Insulin Aspart (Novolog Vial Sliding Scale -) 1 vial SQ ACHS [facility]; Protocol Last Admin: 01/29/20 11:26 Dose: Not Given Documented by: Mupirocin (Bactroban Ointment (For Decolonization) -) 1 applic NS BID [facility] Stop: 01/31/20 21:59 Last Admin: 01/29/20 10:42 Dose: 1 applic Documented by: ASSESSMENT/PLAN: 74 year old female w/ PMH of CVA, ESRD on HD, HTN, HLD, DM, sacral ulcer a dmitted to ICU for acute hypoxic respiratory failure. Pt was on 4S with SpO2 ~70 with increased work of breathing. Thus, rapid response called. Family was notified of pt's condition and rescinded DNR. Pt is currently intubated and sedated. CXR showed complete opacification of R lung, concern for atelectasis and aspiration. Neuro CVA history -Off sedation, minimally responsive at baseline. -Follow repeat head CT -Hold plavix for pending PEG tube placement. Cardiac PMH HTN PMH HLD -Held home labetolol, valsartan, amlodipine Pulmonary Acute hypoxic respiratory failure -CXR on 01/27 shows pleural rxn and atelectasis at b/l bases. -AC/VC 12/350/30%5 Renal ESRD on HD -Last HD 01/26, next HD tomorrow. -Cr 3 -Nephro consulted. ID Aspiration PNA Sacral ulcer -Continue Zosyn (day 13). -ID consulted. Endocrine Diabetes mellitus -ISS +BGM FEN -NS 250 mls -follow electrolyes and replete as needed -Feeds at 30 (nepro) Px -DVT: SCD b/l LTD -ETT 01/26 -NGT 01/26 -L femoral 01/26 Family discussion: Goals of care discussion. Full code. Dispo: Continue ICU monitoring Visit type - Emergency Visit Emergency Visit: Yes ED Registration Date: 01/15/20 Care time: The patient presented to the Emergency Department on the above date and was hospitalized for further evaluation of their emergent condition. - New Patient This patient is new to me today: Yes Date on this admission: 01/29/20 - Critical Care Critical Care patient: Yes Total Critical Care Time (in minutes): 38 Critical Care Statement: The care of this patient involved high complexity decision making to prevent further life threatening deterioration of the patient's condition and/or to evaluate & treat vital organ system(s) failure or risk of failure. - Medication Review Med list reviewed for High Risk Meds patients 65 and older: Yes ATTENDING PHYSICIAN STATEMENT I saw and evaluated the patient. I reviewed the resident's note and discussed the case with the resident. I agree with the resident's findings and plan as documented. SUBJECTIVE: OBJECTIVE: ASSESSMENT AND PLAN:
[2020-01-29] MEDS ORDERED: PT OWN MED DRAWER 7, Y5N ONE (10:23)
[2020-01-29] MEDS: MUPIROCIN 2% TOPICAL OINTMENT FOR DECOLONIZATION NS SCH ×2 (10:42→23:02)
--- NOTE | 2020-01-29 11:03 | PN ---
Progress Note, Physician History of Present Illness: Pt seen/ examined in icu chart is reviewed d/w Rn also Intubated now Family has reascended DNR - Current Medication List Current Medications: Active Medications Chlorhexidine Gluconate (Hibiclens For Decolonization -) 1 applic TP HS [facility] Last Admin: 01/28/20 22:06 Dose: 1 applic Documented by: Collagenase (Santyl -) 1 applic TP DAILY [facility]; Protocol Last Admin: 01/28/20 10:01 Dose: 1 applic Documented by: Piperacillin Sod/Tazobactam (Sod 2.25 gm/ Dextrose) 50 mls @ 100 mls/hr IVPB Q8H-IV [facility]; Protocol Last Admin: 01/29/20 10:42 Dose: 100 mls/hr Documented by: Sodium Chloride (Normal Saline -) 250 mls @ 3,000 mls/hr IV PRN PRN PRN Reason: Hypotension during Dialysis Stop: 01/27/20 14:39 Fentanyl (Sublimaze Ivpb) 500 mcg in 100 mls @ 1 mls/hr IVPB TITR [facility]; Protocol Last Admin: 01/29/20 07:57 Dose: Not Given Documented by: Insulin Aspart (Novolog Vial Sliding Scale -) 1 vial SQ ACHS [facility]; Protocol Last Admin: 01/29/20 07:28 Dose: Not Given Documented by: Mupirocin (Bactroban Ointment (For Decolonization) -) 1 applic NS BID [facility] Stop: 01/31/20 21:59 Last Admin: 01/29/20 10:42 Dose: 1 applic Documented by: - Objective Vital Signs: Vital Signs Temperature 98.3 F 01/29/20 06:00 Pulse Rate 82 01/29/20 08:16 Respiratory Rate 12 01/29/20 08:16 Blood Pressure 141/79 01/29/20 06:00 O2 Sat by Pulse Oximetry (%) 100 01/29/20 08:16 Cardiovascular: Yes: Regular Rate and Rhythm Respiratory: Yes: Diminished Gastrointestinal: Yes: Soft Edema: No Labs: CBC, BMP 01/29/20 05:40 01/29/20 05:40 INR, PTT INR 1.11 (0.83-1.09) H 01/23/20 12:25 Problem List - Problems (1) Stroke Code(s): I63.9 - CEREBRAL INFARCTION, UNSPECIFIED (2) Pneumonia, aspiration Code(s): J69.0 - PNEUMONITIS DUE TO INHALATION OF FOOD AND VOMIT (3) Diabetes Code(s): E11.9 - TYPE 2 DIABETES MELLITUS WITHOUT COMPLICATIONS (4) ESRD on dialysis Code(s): N18.6 - END STAGE RENAL DISEASE; Z99.2 - DEPENDENCE ON RENAL DIALYSIS Assessment/Plan A/P Acute right temporoparietal infarct -- Large MCA aspiration pneumonia ESRD -HD Respiratory failure Intubated Overall condition poor Resuscitation will be futile Will discuss with icu team Family wants everything to be done Palliative team to follow Ethics Committee ? will continue to follow Same treatment for now Prognosis poor
--- NOTE | 2020-01-29 11:50 | PN ---
Teaching Attending Note Name of Resident: Kiley Devi ATTENDING PHYSICIAN STATEMENT I saw and evaluated the patient. I reviewed the resident's note and discussed the case with the resident. I agree with the resident's findings and plan as documented. SUBJECTIVE: Patient seen and examined in the ICU. Remains intubated. No sedation and minimally responsive. AC Mode of vent. Intake & Output 01/26/20 01/27/20 01/28/20 01/29/20 23:59 23:59 23:59 23:59 Intake Total 1110 639 795 505 Output Total 0 0 Balance 1110 639 795 505 Last Vital Signs Temp Pulse Resp BP Pulse Ox 98.3 F 90 12 154/74 100 01/29/20 06:00 01/29/20 10:00 01/29/20 11:39 01/29/20 10:00 01/29/20 11:39 Active Medications Chlorhexidine Gluconate (Hibiclens For Decolonization -) 1 applic TP HS [facility] Last Admin: 01/28/20 22:06 Dose: 1 applic Documented by: Collagenase (Santyl -) 1 applic TP DAILY [facility]; Protocol Last Admin: 01/28/20 10:01 Dose: 1 applic Documented by: Piperacillin Sod/Tazobactam (Sod 2.25 gm/ Dextrose) 50 mls @ 100 mls/hr IVPB Q8H-IV [facility]; Protocol Last Admin: 01/29/20 10:42 Dose: 100 mls/hr Documented by: Sodium Chloride (Normal Saline -) 250 mls @ 3,000 mls/hr IV PRN PRN PRN Reason: Hypotension during Dialysis Stop: 01/27/20 14:39 Fentanyl (Sublimaze Ivpb) 500 mcg in 100 mls @ 1 mls/hr IVPB TITR [facility]; Protocol Last Admin: 01/29/20 07:57 Dose: Not Given Documented by: Insulin Aspart (Novolog Vial Sliding Scale -) 1 vial SQ ACHS [facility]; Protocol Last Admin: 01/29/20 11:26 Dose: Not Given Documented by: Mupirocin (Bactroban Ointment (For Decolonization) -) 1 applic NS BID [facility] Stop: 01/31/20 21:59 Last Admin: 01/29/20 10:42 Dose: 1 applic Documented by: Gen: Intubated, minimally responsive off sedation Lungs: Vented, few scattered rhonchi CV: S1S2 Ext: (+) PP 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 FRAME CHANGER: minimally responsive to noxious stimuli Laboratory Results - last 24 hr 01/28/20 01/28/20 01/28/20 14:30 16:10 16:11 WBC 12.7 H RBC 2.60 L Hgb 8.1 L Hct 25.6 L MCV 98.3 H MCH 31.3 MCHC 31.8 L RDW 19.7 H Plt Count 306 MPV 10.1 Absolute Neuts (auto) Neutrophils % Lymphocytes % Monocytes % Eosinophils % Basophils % Nucleated RBC % Sodium Potassium Chloride Carbon Dioxide Anion Gap BUN Creatinine Est GFR (CKD-EPI)AfAm Est GFR (CKD-EPI)NonAf POC Glucometer 100 119 Random Glucose Calcium Phosphorus Magnesium Total Bilirubin AST ALT Alkaline Phosphatase Total Protein Albumin 01/28/20 01/29/20 01/29/20 22:00 05:40 05:40 WBC 11.1 H RBC 2.53 L Hgb 7.9 L Hct 24.5 L MCV 96.6 H MCH 31.3 MCHC 32.4 RDW 19.1 H Plt Count 368 D MPV 9.8 Absolute Neuts (auto) 9.2 H Neutrophils % 83.1 H Lymphocytes % 9.0 D Monocytes % 6.3 Eosinophils % 1.1 Basophils % 0.5 Nucleated RBC % 0 Sodium 141 Potassium 4.2 Chloride 103 Carbon Dioxide 31 Anion Gap 8 BUN 28.2 H Creatinine 3.0 H Est GFR (CKD-EPI)AfAm 16.79 Est GFR (CKD-EPI)NonAf 14.49 POC Glucometer 124 Random Glucose 143 H Calcium 8.3 L Phosphorus 4.5 Magnesium 2.1 Total Bilirubin 0.3 AST 41 H ALT 16 Alkaline Phosphatase 152 H Total Protein 5.1 L Albumin 1.5 L 01/29/20 01/29/20 06:35 11:24 WBC RBC Hgb Hct MCV MCH MCHC RDW Plt Count MPV Absolute Neuts (auto) Neutrophils % Lymphocytes % Monocytes % Eosinophils % Basophils % Nucleated RBC % Sodium Potassium Chloride Carbon Dioxide Anion Gap BUN Creatinine Est GFR (CKD-EPI)AfAm Est GFR (CKD-EPI)NonAf POC Glucometer 105 132 Random Glucose Calcium Phosphorus Magnesium Total Bilirubin AST ALT Alkaline Phosphatase Total Protein Albumin Problem List - Problems (1) ESRD on dialysis Code(s): N18.6 - END STAGE RENAL DISEASE; Z99.2 - DEPENDENCE ON RENAL DIALYSIS (2) Altered mental status Code(s): R41.82 - ALTERED MENTAL STATUS, UNSPECIFIED (3) Diabetes Code(s): E11.9 - TYPE 2 DIABETES MELLITUS WITHOUT COMPLICATIONS (4) Lactic acidosis Code(s): E87.2 - ACIDOSIS (5) Pneumonia, aspiration Code(s): J69.0 - PNEUMONITIS DUE TO INHALATION OF FOOD AND VOMIT Assessment/Plan Acute Respiratory Failure Acute CVA Pneumonia likely Aspiration ESRD on HD HTN DM Hyperlipidemia h/o CVA -LTVV; goal plat<30 -Wean FiO2 for O2 sat >92% -Pulm toilet; aspiration precautions -Monitor off sedation -empiric ABX coverage -Monitor BMP and electrolytes -HD as per nephrology -VTE prophylaxis and GI proph -Poor overall grave prognosis -Cont goals of care discussion with family Dr Alonzo Critical care time spent in reviewing chart, evaluating patient and formulating plan - 36 minutes.
[2020-01-29] MEDS: COLLAGENASE CLOSTRIDIUM HIST. 30 GRAMS TUBE TP SCH (16:05)
--- NOTE | 2020-01-29 17:20 | CONSULT ---
Consult Consult Specialty:: Palliative care Referred by:: Stefany Vega Reason for Consultation:: Goals of care - History of Present Illness Chief Complaint: CVA, respiratory failure, aspiration History of Present Illness: 74yo F [facility] jail 01[place]20 for unresponsiveness x2days. Unresponsive to verbal or painful stimulation. Patient had stroke 3 months ago and has been declining since then. At baseline patient was awake, responsive, moving extremities, however was bedbound and aphasic. Patient has no seizure, she has high wbc and suspected to have aspiration pneumonia. Patient has large right mca cerebral edema. patient was intubated as family cancelled dnr . patient remain intubated, minimal response to pain. Palliative care consult called for goals of care. 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 No: AFIB, Aneurysm, Aortic Insufficiency, Aortic Stenosis, CAD, CHF, Deep Vein Thrombosis, Hyperlipdemia, PR, Mitral Insufficiency, Mitral Stenosis, Other Pulmonary: Yes: Previously Intubated Renal/: Yes: Renal Failure, Hemodialysis. No: Renal Inusuff, Cancer, H ematuria, Neurogenic Bladder, Renal Calculi, UTI, Other ...: No - Past Surgical History Past Surgical History: Yes: AV Fistula/Graft. No: None, AAA Repair, AICD, Amputation, Appendectomy, Arthrosocopy, Bariatric Surgery, Breast Biopsy, Bypass, CABG, Carotid Endarterectomy, Cataract Removal, Cholecystectomy, Colectomy, Colonoscopy, Colostomy, Craniotomy, , Cystectomy, Hernia Repair, Hysterectomy, Ileal Conduit, Ileosotomy, Joint Replacement, Kidney Transplant, Laminectomy, Liver Transplant, Mastectomy, Nephrectomy, Oopherectomy, Permanent Pacemaker, Splenectomy, Stent, Thoracotomy, Tonsillectomy, Tubal Ligation, Upper Endoscopy, Valve Replacement, Vein Stripping/Ligation - Alcohol/Substance Use Hx Alcohol Use: No - Smoking History Smoking history: Never smoked Have you smoked in the past 12 months: No Aproximately how many cigarettes per day: 0 - Social History Usual Living Arrangement: Skilled Nursing Home Medications - Allergies Allergies/Adverse Reactions: Allergies Allergy/AdvReac Type Severity Reaction Status Date / Time propofol AdvReac Verified 07/29/16 15:05 - Home Medications Home Medications: Ambulatory Orders Albuterol Sulfate Inhaler - [Ventolin Hfa Inhaler -] 1 - 2 inh PO QID 01/15/20 Amlodipine Besylate 10 mg PO DAILY 01/15/20 Atorvastatin Ca [Lipitor] 40 mg PO HS 01/15/20 Clopidogrel Bisulfate [Clopidogrel] 75 mg PO DAILY 01/15/20 Famotidine [Pepcid -] 40 mg PO DAILY 01/15/20 Labetalol HCl [Normodyne -] 200 mg PO BID 01/15/20 Ursodiol [Actigal] 300 mg PO BID 01/15/20 Valsartan 160 mg PO DAILY 01/15/20 Family Medical History Family History: Unable to Obtain Review of Systems Unable to obtain ROS, reason: intubated Physical Exam Vital Signs: Vital Signs Temperature 98.3 F 01/29/20 06:00 Pulse Rate 94 H 01/29/20 14:00 Respiratory Rate 17 01/29/20 15:37 Blood Pressure 147/79 01/29/20 14:00 O2 Sat by Pulse Oximetry (%) 100 01/29/20 15:37 Constitutional: Yes: Cachectic Respiratory: Yes: Mechanically Ventilated Neurological: Yes: Unresponsive Labs: CBC, BMP 01/29/20 05:40 01/29/20 05:40 Imaging - Results Chest X-ray: Report Reviewed Cat Scan: Report Reviewed Problem List - Problems (1) Altered mental status Code(s): R41.82 - ALTERED MENTAL STATUS, UNSPECIFIED (2) Pneumonia, aspiration Code(s): J69.0 - PNEUMONITIS DUE TO INHALATION OF FOOD AND VOMIT (3) Stroke Code(s): I63.9 - CEREBRAL INFARCTION, UNSPECIFIED (4) ESRD on dialysis Code(s): N18.6 - END STAGE RENAL DISEASE; Z99.2 - DEPENDENCE ON RENAL DIALYSIS Assessment/Plan 74yo F admitted from jail 01/14/20 for unresponsiveness x2days. Unresponsive to verbal or painful stimulation. Patient had stroke 3 months ago and has been declining since then. At baseline patient was awake, responsive, moving extremities, however was bedbound and aphasic. Patient suspected to have aspiration pneumonia. Patient with large right mca cerebral edema. patient was intubated on 01/25 as family cancelled dnr . patient remain intubated, minimal response to pain. Acute CVA Pneumonia likely Aspiration ESRD on HD HTN DM Hyperlipidemia h/o CVA ac respiratory failure, intubated, on 30% Fio2, sedated ct shows minimal hemorrhagic conversion. Prognosis poor. Patient with multiorgan failure, mechanically ventilated, unresponsive, dysphagia, aspiration risk Placement of PEG will not prevent aspiration and patient will be at high risk of recurrent aspiration pneumonitis along with risk of pressure sores, uti due to bedbound status. CPR would be medically futile in this patient. Chances of meaningful recovery are slim. Family requesting all supportive measures to continue. Patient remains a full c ode. Will follow. COntinue discussions regarding GOC with family. Thankyou for allowing me to participate in the care of this patient. Please call with questions. Thomas Angelo MD [phone] Total time for chart review, examination, coordination of care- 50 minutes
--- NOTE | 2020-01-29 18:25 | PN ---
Progress Note, Physician History of Present Illness: Pt seen and examined at bedside. SHe remains in the ICU. She remains intubated. - Current Medication List Current Medications: Active Medications Chlorhexidine Gluconate (Hibiclens For Decolonization -) 1 applic TP HS [facility] Last Admin: 01/28/20 22:06 Dose: 1 applic Documented by: Collagenase (Santyl -) 1 applic TP DAILY [facility]; Protocol Last Admin: 01/29/20 16:05 Dose: 1 applic Documented by: Piperacillin Sod/Tazobactam (Sod 2.25 gm/ Dextrose) 50 mls @ 100 mls/hr IVPB Q8H-IV [facility]; Protocol Last Admin: 01/29/20 17:38 Dose: 100 mls/hr Documented by: Sodium Chloride (Normal Saline -) 250 mls @ 3,000 mls/hr IV PRN PRN PRN Reason: Hypotension during Dialysis Stop: 01/27/20 14:39 Fentanyl (Sublimaze Ivpb) 500 mcg in 100 mls @ 1 mls/hr IVPB TITR [facility]; Protocol Last Admin: 01/29/20 07:57 Dose: Not Given Documented by: Insulin Aspart (Novolog Vial Sliding Scale -) 1 vial SQ ACHS [facility]; Protocol Last Admin: 01/29/20 16:54 Dose: Not Given Documented by: Mupirocin (Bactroban Ointment (For Decolonization) -) 1 applic NS BID [facility] Stop: 01/31/20 21:59 Last Admin: 01/29/20 10:42 Dose: 1 applic Documented by: - Objective Vital Signs: Vital Signs Temperature 97.4 F L 01/29/20 18:00 Pulse Rate 95 H 01/29/20 18:00 Respiratory Rate 01/29/20 18:00 Blood Pressure 144/70 01/29/20 18:00 O2 Sat by Pulse Oximetry (%) 100 01/29/20 15:37 Constitutional: Yes: Calm Eyes: Yes: Conjunctiva Clear HENT: Yes: Atraumatic Cardiovascular: Yes: S1, S2 Respiratory: Yes: Mechanically Ventilated Gastrointestinal: Yes: Soft Genitourinary: Yes: Incontinence Musculoskeletal: Yes: Muscle Weakness Integumentary: Yes: WNL Neurological: Yes: Lethargy Labs: CBC, BMP 01/29/20 05:40 01/29/20 05:40 INR, PTT INR 1.11 (0.83-1.09) H 01/23/20 12:25 - ....Imaging Cat Scan: Report Reviewed Problem List - Problems (1) ESRD on dialysis Code(s): N18.6 - END STAGE RENAL DISEASE; Z99.2 - DEPENDENCE ON RENAL DIALYSIS Assessment/Plan Current Medications Generic Name Dose Route Start Last Admin Trade Name Freq PRN Reason Stop Dose Admin Chlorhexidine Gluconate 1 applic 01/26/20 22:00 01/28/20 22:06 Hibiclens For Decolonization - TP 1 applic HS [facility] Administration Collagenase 1 applic 01/27/20 10:00 01/29/20 16:05 Santyl - TP 1 applic DAILY [facility] Administration Protocol Piperacillin Sod/Tazobactam 50 mls @ 100 mls/hr 01/27/20 02:00 01/29/20 17:38 Sod 2.25 gm/ Dextrose IVPB 100 mls/hr Q8H-IV [facility] Administration Protocol Sodium Chloride 250 mls @ 3,000 mls/hr 01/26/20 20:45 Normal Saline - IV 01/27/20 14:39 PRN PRN Hypotension during Dialysis Fentanyl 500 mcg in 100 mls @ 1 mls/hr 01/27/20 03:45 01/29/20 07:57 Sublimaze Ivpb IVPB Not Given TITR [facility] Protocol 5 MCG/HR Insulin Aspart 1 vial 01/28/20 07:00 01/29/20 16:54 Novolog Vial Sliding Scale - SQ Not Given ACHS [facility] Protocol Mupirocin 1 applic 01/26/20 22:00 01/29/20 10:42 Bactroban Ointment (For Decolonization) - NS 01/31/20 21:59 1 applic BID [facility] Administration Impression 1. esrd 2. Acute right temporoparietal infarct 3. previous CVA 4. aspiration pneumonia 5. htn 6. hld 7. acute resp failure Plan - cont vent support - ct shows minimal hemorrhagic conversion - evaluate for HD tomorrow - monitor lytes - discussed with ICU team
[2020-01-29] MEDS: DEXTROSE 10%-WATER - 1,000 ML IV SCH (20:17)
--- NOTE | 2020-01-29 22:26 | PN ---
Progress Note (short form) - Note Progress Note: 74 year old female brought patient from [place] for unreponsivness for two days prior to admission. Patient has history of stroke three months ago and has been decline since than. Patinet has been awake two days agoa and slowly became aphasic and unreponsive. Patient has no seizure, she has high wbc and suspected to have aspiration pneumonia. Patient has large right mca cerebral edema. patient was intubated as family cancelled dnr . patient remain intubated, minimal response to pain NEUROLOGICAL EXAMINATION comatose remain intubated and off sedation today and very minimal response to painfl stimuli neck is supple afebrile pupils is small sluggsihly reactive gag and corneal reflex is present bp is maintained ct head showed large right mca cerebral edema with miniml hemorrhagic transformation repeat ct head done on january 28 Assessment/Plan 1. Lare right mca acute stroke with with hemorrhagic transofrmation. aspiriation pneumoia ,came with unreponsiveness, patient has old left mca stroke now she has bihemispheric stroke with minimal reponsivness, -Aspiration pneumonia Plan: prongnosis is poor - continue abx - dvt prophylaxis, Pippa sol so much Norman Plascencia MD
[2020-01-29] MEDS: CHLORHEXIDINE GLUCONATE 4% CLEANSER FOR DECOLONIZATION TP SCH (23:02)
[2020-01-30] MEDS ORDERED: PIPERACILLIN/TAZOBACTAM 2.25 GM VIAL IVPB ONE ×2 (00:37→09:05)
[2020-01-30] MEDS ORDERED: DEXTROSE 5%-WATER - 50 ML IVPB ONE ×2 (00:37→09:05)
[2020-01-30] MEDS: PIPERACILLIN/TAZOB 2.25 GM 2.25 GM in DEXTROSE 5%-WATER - 50 ML IVPB SCH ×2 (01:44→09:19)
[2020-01-30] MEDS: FENTANYL IVPB 500 MCG/100 ML BAG IVPB SCH (06:31)
[2020-01-30] MEDS: INSULIN SLIDING SCALE (NOVOLOG) 1 VIAL SQ SCH ×4 (06:31→23:39)
[2020-01-30 07:08] LABS: ARTERIAL BLD GAS O2 SATURATION 96.9 mmHg (95-98); ARTERIAL BLOOD GAS BASE EXCESS 4.1 mmol/L (-2-2); ARTERIAL BLOOD GAS PO2 85.8 mmHg (80-100); ARTERIAL BLOOD GAS pH 7.456 (7.350-7.450)
[2020-01-30 07:10] LABS: ALLENS TEST POSITIVE
[2020-01-30 07:11] LABS: VENT MODE A/C; VENT RATE 12
[2020-01-30 07:25] LABS: BASO % 0.7 % (0-2.0); EOS % 1.4 % (0-4.5); LYMPH % 12.9 % (8-40); MCH 31.4 pg (25.7-33.7); MCHC 32.3 g/dl (32.0-36.0); MEAN CELL VOLUME 97.2 fl (80-96); MEAN PLT VOLUME 9.6 fl (7.5-11.1); MONO % 7.8 % (3.8-10.2); NEUT % 77.2 % (42.8-82.8); PLATELET COUNT 379 K/MM3 (134-434); RBC 2.88 M/mm3 (3.60-5.2); RDW 18.9 % (11.6-15.6); WHITE BLOOD COUNT 10.2 K/mm3 (4.0-10.0)
[2020-01-30 07:57] LABS: ALBUMIN 1.4 g/dl (3.4-5.0); BILIRUBIN,TOTAL 0.3 mg/dL (0.2-1); BLOOD UREA NITROGEN 35.6 mg/dL (7-18); CREATININE 3.7 mg/dL (0.55-1.3); MAGNESIUM 2.3 mg/dL (1.8-2.4); PHOSPHOROUS 4.3 mg/dL (2.5-4.9); POTASSIUM 4.1 mmol/L (3.5-5.1); TOT PROT 5.4 g/dl (6.4-8.2)
--- NOTE | 2020-01-30 08:54 | PN ---
Physical Exam: SUBJECTIVE: Patient seen and examined in the ICU. Pt remains intubated. No acute overnight events. OBJECTIVE: Vital Signs Period Temp Pulse Resp BP Sys/Ramirez Pulse Ox Last 24 Hr 97.4 F-97.6 F 86-100 10-20 121-154/60-79 100-100 GENERAL: Pulls away from sternal rub. HEENT: NCAT, ETT in place, NGT in place. Pupils constricted and sluggish to light. LUNGS: scattered rhonchi b/l HEART: S1, S2 present. Tachycardic, regular rhythm. No murmurs. ABDOMEN: Bowel sounds present in all 4 quadrants, soft, non-distended. EXTREMITIES: SCDs in place b/l. No edema. SKIN: Warm, dry. Laboratory Last Values WBC 10.2 K/mm3 (4.0-10.0) H 01/30/20 06:15 RBC 2.88 M/mm3 (3.60-5.2) L 01/30/20 06:15 Hgb 9.0 GM/dL (10.7-15.3) L 01/30/20 06:15 Hct 28.0 % (32.4-45.2) L 01/30/20 06:15 MCV 97.2 fl (80-96) H 01/30/20 06:15 MCH 31.4 pg (25.7-33.7) 01/30/20 06:15 MCHC 32.3 g/dl (32.0-36.0) 01/30/20 06:15 RDW 18.9 % (11.6-15.6) H 01/30/20 06:15 Plt Count 379 K/MM3 (134-434) 01/30/20 06:15 MPV 9.6 fl (7.5-11.1) 01/30/20 06:15 Absolute Neuts (auto) 7.9 K/mm3 (1.5-8.0) 01/30/20 06:15 Total Counted 100 01/15/20 08:40 Neutrophils % 77.2 % (42.8-82.8) 01/30/20 06:15 Neutrophils % (Manual) 79.0 % (42.8-82.8) 01/15/20 08:40 Band Neutrophils % 2.0 % 01/15/20 08:40 Lymphocytes % 12.9 % (8-40) D 01/30/20 06:15 Lymphocytes % (Manual) 13.0 % (8-40) 01/15/20 08:40 Monocytes % 7.8 % (3.8-10.2) 01/30/20 06:15 Monocytes % (Manual) 4 % (3.8-10.2) 01/15/20 08:40 Eosinophils % 1.4 % (0-4.5) 01/30/20 06:15 Eosinophils % (Manual) 0.0 % (0-4.5) 01/15/20 08:40 Basophils % 0.7 % (0-2.0) 01/30/20 06:15 Basophils % (Manual) 1.0 % (0-2.0) 01/15/20 08:40 Nucleated RBC % 0 % (0-0) 01/30/20 06:15 Metamyelocytes 1 % (0-2) 01/15/20 08:40 Hypochromia 0 01/18/20 06:10 Platelet Estimate Normal 01/18/20 06:10 Platelet Comment No clumping noted 01/15/20 08:40 Platelet Comment Large platelets 01/15/20 08:40 Polychromasia 1+ 01/18/20 06:10 Poikilocytosis 1+ 01/18/20 06:10 Anisocytosis 1+ 01/18/20 06:10 Microcytosis 1+ 01/18/20 06:10 Macrocytosis 0 01/18/20 06:10 Andrea Cells 1+ 01/18/20 06:10 PT with INR 13.10 SEC (9.7-13.0) H 01/23/20 12:25 INR 1.11 (0.83-1.09) H 01/23/20 12:25 PTT (Actin FS) 29.7 SECONDS (25.2-36.5) 01/14/20 20:10 Anticoagulation Therapy No Result Required. 01/30/20 07:00 Puncture Site Right radial 01/30/20 07:00 Patient Temperature No Result Required. 01/30/20 07:00 ABG pH 7.456 (7.350-7.450) H 01/30/20 07:00 ABG pCO2 41.10 mmHg (35-45) 01/30/20 07:00 ABG pO2 85.8 mmHg (80-100) 01/30/20 07:00 ABG HCO3 28.3 mmol/L (22-27) H 01/30/20 07:00 ABG O2 Sat (Measured) 96.9 mmHg (95-98) 01/30/20 07:00 ABG O2 Content No Result Required. 01/30/20 07:00 ABG Base Excess 4.1 mmol/L (-2-2) H 01/30/20 07:00 Sai Test Positive 01/30/20 07:00 VBG pH 7.309 (7.310-7.410) L 01/14/20 20:30 POC VBG pCO2 50.0 mmHg (38-52) 01/14/20 20:30 POC VBG pO2 68.5 mmHg (28-48) H 01/14/20 20:30 VBG HCO3 24.6 mmol/L (23-29) 01/14/20 20:30 VBG O2 Sat (Rayray) 91.9 % (70-80) H 01/14/20 20:30 VBG Base Excess -2.2 mmol/L (-2-2) L 01/14/20 20:30 Patient On Oxygen Yes 01/30/20 07:00 O2 Delivery Device Vent 01/30/20 07:00 Oxygen Flow Rate 30% 01/30/20 07:00 Vent Mode A/c 01/30/20 07:00 Vent Rate 12 01/30/20 07:00 Mechanical Rate Yes 01/30/20 07:00 PEEP 5.0 cmH2O 01/30/20 07:00 Pressure Support Vent 350 01/30/20 07:00 Sodium 140 mmol/L (136-145) 01/30/20 06:15 Potassium 4.1 mmol/L (3.5-5.1) 01/30/20 06:15 Chloride 102 mmol/L (98-107) 01/30/20 06:15 Carbon Dioxide 27 mmol/L (21-32) 01/30/20 06:15 Anion Gap 11 MMOL/L (8-16) 01/30/20 06:15 BUN 35.6 mg/dL (7-18) H 01/30/20 06:15 Creatinine 3.7 mg/dL (0.55-1.3) H 01/30/20 06:15 Est GFR (CKD-EPI)AfAm 13.03 01/30/20 06:15 Est GFR (CKD-EPI)NonAf 11.24 01/30/20 06:15 POC Glucometer 154 UNITS (80-120) 01/30/20 06:30 Random Glucose 153 mg/dL (74-106) H 01/30/20 06:15 Lactic Acid 1.9 mmol/L (0.4-2.0) 01/26/20 23:40 Calcium 8.0 mg/dL (8.5-10.1) L 01/30/20 06:15 Phosphorus 4.3 mg/dL (2.5-4.9) 01/30/20 06:15 Magnesium 2.3 mg/dL (1.8-2.4) 01/30/20 06:15 Total Bilirubin 0.3 mg/dL (0.2-1) 01/30/20 06:15 Direct Bilirubin 0.1 mg/dL (0.0-0.2) 01/28/20 05:40 AST 39 U/L (15-37) H 01/30/20 06:15 ALT 15 U/L (13-61) 01/30/20 06:15 Alkaline Phosphatase 241 U/L (45-117) H 01/30/20 06:15 Troponin I 0.32 ng/ml (0.00-0.05) H 01/27/20 05:00 Total Protein 5.4 g/dl (6.4-8.2) L 01/30/20 06:15 Albumin 1.4 g/dl (3.4-5.0) L 01/30/20 06:15 Beta-Hydroxybutyrate 8.7 mg/dL (0.2-2.8) H 01/15/20 08:40 TSH 1.32 uIU/ml (0.358-3.74) 01/14/20 20:10 COVID-19 ([facility]) Not detected (Not Detected) 01/15/20 00:30 Hep Bs Antigen Negative (Negative) 01/15/20 14:50 Hep C Ab Diagnostic 0.1 s/co ratio (0.0-0.9) 01/15/20 14:50 Active Medications Chlorhexidine Gluconate (Hibiclens For Decolonization -) 1 applic TP HS JOSE Last Admin: 01/29/20 23:02 Dose: 1 applic Documented by: Collagenase (Santyl -) 1 applic TP DAILY JOSE; Protocol Last Admin: 01/29/20 16:05 Dose: 1 applic Documented by: Piperacillin Sod/Tazobactam (Sod 2.25 gm/ Dextrose) 50 mls @ 100 mls/hr IVPB Q8H-IV JOSE; Protocol Last Admin: 01/30/20 01:44 Dose: 100 mls/hr Documented by: Sodium Chloride (Normal Saline -) 250 mls @ 3,000 mls/hr IV PRN PRN PRN Reason: Hypotension during Dialysis Stop: 01/27/20 14:39 Fentanyl (Sublimaze Ivpb) 500 mcg in 100 mls @ 1 mls/hr IVPB TITR JOSE; Protocol Last Admin: 01/30/20 06:31 Dose: Not Given Documented by: Insulin Aspart (Novolog Vial Sliding Scale -) 1 vial SQ ACHS [facility]; Protocol Last Admin: 01/30/20 06:31 Dose: Not Given Documented by: Mupirocin (Bactroban Ointment (For Decolonization) -) 1 applic NS BID JOSE Stop: 01/31/20 21:59 Last Admin: 01/29/20 23:02 Dose: 1 applic Documented by: ASSESSMENT/PLAN: 74 year old female w/ PMH of CVA, ESRD on HD, HTN, HLD, DM, sacral ulcer admitted to ICU for acute hypoxic respiratory failure. Pt was on 4S with SpO2 ~70 with increased work of breathing. Thus, rapid response called. Family was notified of pt's condition and rescinded DNR. Received HD today. Pt tolerated CPAP mode for 20 minutes. RSBI was 67. Extubated today. GOC discussion ongoing. Neuro CVA history Bihemispheric stroke with minimal responsiveness -Off sedation, minimally responsive at baseline. -Hold plavix for pending PEG tube placement 01/30. -CT head showed moderate size subacute infarct in L frontal lobe. Large R MCA subacute infarct w/ suggestion of interval minimal hemorrhagic transformation seen in R frontal lobe. -Neuro consulted. Cardiac PMH HTN PMH HLD -Held home labetolol, valsartan, amlodipine Pulmonary Acute hypoxic respiratory failure Aspiration PNA -CXR on 01/29 shows better aeration at R base. -Place on CPAP mode for 20 minutes, tolerated well. Saturated 100%. RSBI 67. Extubated today and placed on ventimask. Saturating at 100%. Renal ESRD on HD -HD today 01/29. -Cr 3.7 -Nephro consulted. Continue current management. Consider withholding HD given futility. May not be able to remove much fluid given current tachycardia. ID Aspiration PNA Sacral ulcer -Discontinue Zosyn (on zosyn since 01/14) -Continue application Collegenase (Santyl) -ID consulted. Recommended discontinue zosyn and reculture off for current temperature and increased WBC. -COVID negative Endocrine Diabetes mellitus Hypokalemia, resolved -ISS +BGM FEN -NS 250 mls -follow electrolytes and replete as needed -Feeds at 40 (nepro) Px -DVT: SCD b/l LTD -NGT 01/26 Family discussion: Goals of care discussion ongoing. Full code. Palliative care saw pt, discussed GOC with daughter. Pt's daughter would like to see pt before making decision. Spoke to family at bedside. Understood pt's risks of aspiration. Requested older adult social work specialist for further conversation of resources. Also wanted to proceed with PEG tube placement (scheduled tomorrow). Dispo: Continue ICU monitoring Visit type - Emergency Visit Emergency Visit: Yes ED Registration Date: 01/15/20 Care time: The patient presented to the Emergency Department on the above date and was hospitalized for further evaluation of their emergent condition. - New Patient This patient is new to me today: No - Critical Care Critical Care patient: Yes Total Critical Care Time (in minutes): 40 Critical Care Statement: The care of this patient involved high complexity decision making to prevent further life threatening deterioration of the patient's condition and/or to evaluate & treat vital organ system(s) failure or risk of failure. - Medication Review Med list reviewed for High Risk Meds patients 65 and older: Yes ATTENDING PHYSICIAN STATEMENT I saw and evaluated the patient. I reviewed the resident's note and discussed the case with the resident. I agree with the resident's findings and plan as documented. SUBJECTIVE: OBJECTIVE: ASSESSMENT AND PLAN:
--- NOTE | 2020-01-30 09:07 | PN ---
Progress Note (short form) - Note Progress Note: Palliative care f/up 74yo F admitted from [facility] 01/14/20 for unresponsiveness x2days. Unresponsive to verbal or painful stimulation. Patient had stroke 3 months ago and has been declining since then. At baseline patient was awake, responsive, moving extremities, however was bedbound and aphasic. Patient suspected to have aspiration pneumonia. Patient with large right mca cerebral edema. patient was intubated on 01/25 as family cancelled dnr . patient remain intubated, minimal response to pain. Acute CVA Pneumonia likely Aspiration ESRD on HD HTN DM Hyperlipidemia h/o CVA ac respiratory failure, intubated, on 30% Fio2, sedated ct shows minimal hemorrhagic conversion. Prognosis poor. remains intubated, on vent 30% fio2 unresponsive off sedation + NGT feeds Patient with multiorgan failure, mechanically ventilated, unresponsive, dysphagia, aspiration risk Placement of PEG will not prevent aspiration and patient will be at high risk of recurrent aspiration pneumonitis along with risk of pressure sores, uti due to bedbound status. CPR would be medically futile in this patient. Chances of meaningful recovery are slim. I spoke to pt's daughter Kelsey today. We discussed Sharona's bihemispheric stroke, unresponsiveness, respiratory failure. We also discussed risk of recurrent aspiration, poor quality of life - even if she were to recover from this episode it is unlikely she will be able to walk/ talk or eat for herself. We discussed DNR/ compassionate extubation with morphine for comfort. Kelsey would like to visit her mom with her sister today before she can make that decision will try to arrange. Problem List - Problems (1) Altered mental status Code(s): R41.82 - ALTERED MENTAL STATUS, UNSPECIFIED (2) Pneumonia, aspiration Code(s): J69.0 - PNEUMONITIS DUE TO INHALATION OF FOOD AND VOMIT (3) Stroke Code(s): I63.9 - CEREBRAL INFARCTION, UNSPECIFIED (4) ESRD on dialysis Code(s): N18.6 - END STAGE RENAL DISEASE; Z99.2 - DEPENDENCE ON RENAL DIALYSIS
[2020-01-30] MEDS: COLLAGENASE CLOSTRIDIUM HIST. 30 GRAMS TUBE TP SCH (09:19)
[2020-01-30] MEDS: MUPIROCIN 2% TOPICAL OINTMENT FOR DECOLONIZATION NS SCH ×2 (09:20→23:38)
--- NOTE | 2020-01-30 09:49 | PN ---
Progress Note (short form) - Note Progress Note: RENAL Being dialyzed currently required intubation over weekend and has had some reexpansion of lung she is unresponsive Last Vital Signs Temp Pulse Resp BP Pulse Ox 97.6 F 105 H 22 H 160/80 100 01/30/20 06:00 01/30/20 08:40 01/30/20 09:00 01/30/20 08:40 01/30/20 09:00 lungs clear cvs s1s2 rr abd soft ext upper ext edema neuro unresponsive CBC, BMP 01/30/20 06:15 01/30/20 06:15 Current Medications Generic Name Dose Route Start Last Admin Trade Name Freq PRN Reason Stop Dose Admin Chlorhexidine Gluconate 1 applic 01/26/20 22:00 01/29/20 23:02 Hibiclens For Decolonization - TP 1 applic HS JOSE Administration Collagenase 1 applic 01/27/20 10:00 01/30/20 09:19 Santyl - TP 1 applic DAILY JOSE Administration Protocol Piperacillin Sod/Tazobactam 50 mls @ 100 mls/hr 01/27/20 02:00 01/30/20 09:19 Sod 2.25 gm/ Dextrose IVPB 100 mls/hr Q8H-IV JOSE Administration Protocol Sodium Chloride 250 mls @ 3,000 mls/hr 01/26/20 20:45 Normal Saline - IV 01/27/20 14:39 PRN PRN Hypotension during Dialysis Fentanyl 500 mcg in 100 mls @ 1 mls/hr 01/27/20 03:45 01/30/20 06:31 Sublimaze Ivpb IVPB Not Given TITR JOSE Protocol 5 MCG/HR Insulin Aspart 1 vial 01/28/20 07:00 01/30/20 06:31 Novolog Vial Sliding Scale - SQ Not Given ACHS JOSE Protocol Mupirocin 1 applic 01/26/20 22:00 01/30/20 09:20 Bactroban Ointment (For Decolonization) - NS 01/31/20 21:59 1 applic BID JOSE Administration IMPRESSION esrd htn s/p cva x 2 hypokalemia resolved covid 19 neg hypernatremia PLAN no changes would need to consider withholding hd given futility keep on k 2 bath may not be able to removemuch fluid given current tachycardia MV
[2020-01-30] MEDS ORDERED: SODIUM CHLORIDE 250 ML IV PRN (09:51)
--- NOTE | 2020-01-30 11:03 | PN ---
Progress Note (short form) - Note Progress Note: undergoing dialysis not on sedation poorly responsive intubated- on ventilator in ICU Vital Signs - 24 hr 01/29/20 01/29/20 01/29/20 11:39 14:00 15:37 Temperature Pulse Rate 94 H Respiratory 10 20 17 Rate Blood Pressure 147/79 O2 Sat by Pulse 100 100 100 Oximetry (%) 01/29/20 01/29/20 01/29/20 18:00 20:30 21:00 Temperature 97.4 F L Pulse Rate 95 H Respiratory 20 14 Rate Blood Pressure 144/70 O2 Sat by Pulse 100 100 Oximetry (%) 01/29/20 01/30/20 01/30/20 22:00 00:20 02:00 Temperature 97.5 F L Pulse Rate 87 86 Respiratory 15 14 14 Rate Blood Pressure 136/66 121/60 O2 Sat by Pulse 100 Oximetry (%) 01/30/20 01/30/20 01/30/20 04:07 06:00 08:00 Temperature 97.6 F Pulse Rate 100 H 96 H Respiratory 15 19 12 Rate Blood Pressure 138/77 143/75 O2 Sat by Pulse 100 100 Oximetry (%) 01/30/20 01/30/20 01/30/20 08:35 08:40 09:00 Temperature Pulse Rate 105 H 105 H Respiratory 20 19 22 H Rate Blood Pressure 143/75 160/80 O2 Sat by Pulse 100 Oximetry (%) 01/30/20 01/30/20 01/30/20 09:10 09:40 10:00 Temperature 98.4 F Pulse Rate 102 H 126 H 121 H Respiratory 25 H 28 H 23 H Rate Blood Pressure 136/73 128/90 140/78 O2 Sat by Pulse 100 Oximetry (%) 01/30/20 10:10 Temperature Pulse Rate 119 H Respiratory 25 H Rate Blood Pressure 140/78 O2 Sat by Pulse Oximetry (%) Current Medications Generic Name Dose Route Start Last Admin Trade Name Freq PRN Reason Stop Dose Admin Chlorhexidine Gluconate 1 applic 01/26/20 22:00 01/29/20 23:02 Hibiclens For Decolonization - TP 1 applic HS JOSE Administration Collagenase 1 applic 01/27/20 10:00 01/30/20 09:19 Santyl - TP 1 applic DAILY JOSE Administration Protocol Piperacillin Sod/Tazobactam 50 mls @ 100 mls/hr 01/27/20 02:00 01/30/20 09:19 Sod 2.25 gm/ Dextrose IVPB 100 mls/hr Q8H-IV JOSE Administration Protocol Sodium Chloride 250 mls @ 3,000 mls/hr 01/26/20 20:45 Normal Saline - IV 01/27/20 14:39 PRN PRN Hypotension during Dialysis Fentanyl 500 mcg in 100 mls @ 1 mls/hr 01/27/20 03:45 01/30/20 06:31 Sublimaze Ivpb IVPB Not Given TITR JOSE Protocol 5 MCG/HR Sodium Chloride 250 mls @ 3,000 mls/hr 01/30/20 09:51 Normal Saline - IV 01/31/20 09:51 PRN PRN Hypotension during Dialysis Insulin Aspart 1 vial 01/28/20 07:00 01/30/20 06:31 Novolog Vial Sliding Scale - SQ Not Given ACHS JOSE Protocol Mupirocin 1 applic 01/26/20 22:00 01/30/20 09:20 Bactroban Ointment (For Decolonization) - NS 01/31/20 21:59 1 applic BID JOSE Administration Laboratory Results - last 24 hr 01/29/20 01/29/20 01/29/20 11:24 16:44 23:00 WBC RBC Hgb Hct MCV MCH MCHC RDW Plt Count MPV Absolute Neuts (auto) Neutrophils % Lymphocytes % Monocytes % Eosinophils % Basophils % Nucleated RBC % Anticoagulation Therapy Puncture Site Patient Temperature ABG pH ABG pCO2 ABG pO2 ABG HCO3 ABG O2 Sat (Measured) ABG O2 Content ABG Base Excess Sai Test Patient On Oxygen O2 Delivery Device Oxygen Flow Rate Vent Mode Vent Rate Mechanical Rate PEEP Pressure Support Vent Sodium Potassium Chloride Carbon Dioxide Anion Gap BUN Creatinine Est GFR (CKD-EPI)AfAm Est GFR (CKD-EPI)NonAf POC Glucometer 132 121 224 Random Glucose Calcium Phosphorus Magnesium Total Bilirubin AST ALT Alkaline Phosphatase Total Protein Albumin 01/30/20 01/30/20 01/30/20 06:15 06:15 06:30 WBC 10.2 H RBC 2.88 L Hgb 9.0 L Hct 28.0 L MCV 97.2 H MCH 31.4 MCHC 32.3 RDW 18.9 H Plt Count 379 MPV 9.6 Absolute Neuts (auto) 7.9 Neutrophils % 77.2 Lymphocytes % 12.9 D Monocytes % 7.8 Eosinophils % 1.4 Basophils % 0.7 Nucleated RBC % 0 Anticoagulation Therapy Puncture Site Patient Temperature ABG pH ABG pCO2 ABG pO2 ABG HCO3 ABG O2 Sat (Measured) ABG O2 Content ABG Base Excess Sai Test Patient On Oxygen O2 Delivery Device Oxygen Flow Rate Vent Mode Vent Rate Mechanical Rate PEEP Pressure Support Vent Sodium 140 Potassium 4.1 Chloride 102 Carbon Dioxide 27 Anion Gap 11 BUN 35.6 H Creatinine 3.7 H Est GFR (CKD-EPI)AfAm 13.03 Est GFR (CKD-EPI)NonAf 11.24 POC Glucometer 154 Random Glucose 153 H Calcium 8.0 L Phosphorus 4.3 Magnesium 2.3 Total Bilirubin 0.3 AST 39 H ALT 15 Alkaline Phosphatase 241 H Total Protein 5.4 L Albumin 1.4 L 01/30/20 07:00 WBC RBC Hgb Hct MCV MCH MCHC RDW Plt Count MPV Absolute Neuts (auto) Neutrophils % Lymphocytes % Monocytes % Eosinophils % Basophils % Nucleated RBC % Anticoagulation Therapy No Result Required. Puncture Site Right radial Patient Temperature No Result Required. ABG pH 7.456 H ABG pCO2 41.10 ABG pO2 85.8 ABG HCO3 28.3 H ABG O2 Sat (Measured) 96.9 ABG O2 Content No Result Required. ABG Base Excess 4.1 H Sai Test Positive Patient On Oxygen Yes O2 Delivery Device Vent Oxygen Flow Rate 30% Vent Mode A/c Vent Rate 12 Mechanical Rate Yes PEEP 5.0 Pressure Support Vent 350 Sodium Potassium Chloride Carbon Dioxide Anion Gap BUN Creatinine Est GFR (CKD-EPI)AfAm Est GFR (CKD-EPI)NonAf POC Glucometer Random Glucose Calcium Phosphorus Magnesium Total Bilirubin AST ALT Alkaline Phosphatase Total Protein Albumin intubated S1 S2 RRR Lungs decreased Abd- soft, NT No edema sedated ct head showed large right mca cerebral edema with minimal hemorrhagic transformation repeat ct head done on january 28 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 ESRD on HD aspiration pneumonia acute respiratory failure -- palliative care on the case -- iv antibiotics -- pt is now FULL CODE -- continue with current care -- poor prognosis -- peg tube placement may not be beneficial as she can have aspiration with GT feedings -- chance of meaningful recovery are now poor -- daughters to come and see the pt today and make decision regarding further care Problem List - Problems (1) Altered mental status Code(s): R41.82 - ALTERED MENTAL STATUS, UNSPECIFIED (2) Lactic acidosis Code(s): E87.2 - ACIDOSIS (3) Pneumonia, aspiration Code(s): J69.0 - PNEUMONITIS DUE TO INHALATION OF FOOD AND VOMIT (4) Stroke Code(s): I63.9 - CEREBRAL INFARCTION, UNSPECIFIED (5) ESRD on dialysis Code(s): N18.6 - END STAGE RENAL DISEASE; Z99.2 - DEPENDENCE ON RENAL DIALYSIS (6) Hypertension Code(s): I10 - ESSENTIAL (PRIMARY) HYPERTENSION
--- NOTE | 2020-01-30 12:55 | PN ---
Teaching Attending Note Name of Resident: Kiley Devi ATTENDING PHYSICIAN STATEMENT I saw and evaluated the patient. I reviewed the resident's note and discussed the case with the resident. I agree with the resident's findings and plan as documented. SUBJECTIVE: Patient seen and examined in the ICU. Remains intubated. No sedation and remains poorly responsive. AC Mode of vent. On HD. Intake & Output 01/27/20 01/28/20 01/29/20 01/30/20 23:59 23:59 23:59 23:59 Intake Total 827 991 4635 600 Output Total 0 0 0 900 Balance 677 845 1595 -300 Last Vital Signs Temp Pulse Resp BP Pulse Ox 98.4 F 104 H 16 128/68 100 01/30/20 10:00 01/30/20 12:02 01/30/20 12:02 01/30/20 12:02 01/30/20 10:00 Active Medications Chlorhexidine Gluconate (Hibiclens For Decolonization -) 1 applic TP HS JOSE Last Admin: 01/29/20 23:02 Dose: 1 applic Documented by: Collagenase (Santyl -) 1 applic TP DAILY JOSE; Protocol Last Admin: 01/30/20 09:19 Dose: 1 applic Documented by: Piperacillin Sod/Tazobactam (Sod 2.25 gm/ Dextrose) 50 mls @ 100 mls/hr IVPB Q8H-IV JOSE; Protocol Last Admin: 01/30/20 09:19 Dose: 100 mls/hr Documented by: Sodium Chloride (Normal Saline -) 250 mls @ 3,000 mls/hr IV PRN PRN PRN Reason: Hypotension during Dialysis Stop: 01/27/20 14:39 Fentanyl (Sublimaze Ivpb) 500 mcg in 100 mls @ 1 mls/hr IVPB TITR JOSE; Protocol Last Admin: 01/30/20 06:31 Dose: Not Given Documented by: Sodium Chloride (Normal Saline -) 250 mls @ 3,000 mls/hr IV PRN PRN PRN Reason: Hypotension during Dialysis Stop: 01/31/20 09:51 Insulin Aspart (Novolog Vial Sliding Scale -) 1 vial SQ ACHS JOSE; Protocol Last Admin: 01/30/20 11:52 Dose: Not Given Documented by: Mupirocin (Bactroban Ointment (For Decolonization) -) 1 applic NS BID JOSE Stop: 01/31/20 21:59 Last Admin: 01/30/20 09:20 Dose: 1 applic Documented by: Gen: Intubated, poorly responsive off sedation Lungs: Vented, few scattered rhonchi CV: S1S2 Ext: (+) 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 Laboratory Results - last 24 hr 01/29/20 01/29/20 01/30/20 16:44 23:00 06:15 WBC 10.2 H RBC 2.88 L Hgb 9.0 L Hct 28.0 L MCV 97.2 H MCH 31.4 MCHC 32.3 RDW 18.9 H Plt Count 379 MPV 9.6 Absolute Neuts (auto) 7.9 Neutrophils % 77.2 Lymphocytes % 12.9 D Monocytes % 7.8 Eosinophils % 1.4 Basophils % 0.7 Nucleated RBC % 0 Anticoagulation Therapy Puncture Site Patient Temperature ABG pH ABG pCO2 ABG pO2 ABG HCO3 ABG O2 Sat (Measured) ABG O2 Content ABG Base Excess Sai Test Patient On Oxygen O2 Delivery Device Oxygen Flow Rate Vent Mode Vent Rate Mechanical Rate PEEP Pressure Support Vent Sodium Potassium Chloride Carbon Dioxide Anion Gap BUN Creatinine Est GFR (CKD-EPI)AfAm Est GFR (CKD-EPI)NonAf POC Glucometer 121 224 Random Glucose Calcium Phosphorus Magnesium Total Bilirubin AST ALT Alkaline Phosphatase Total Protein Albumin 01/30/20 01/30/20 01/30/20 06:15 06:30 07:00 WBC RBC Hgb Hct MCV MCH MCHC RDW Plt Count MPV Absolute Neuts (auto) Neutrophils % Lymphocytes % Monocytes % Eosinophils % Basophils % Nucleated RBC % Anticoagulation Therapy No Result Required. Puncture Site Right radial Patient Temperature No Result Required. ABG pH 7.456 H ABG pCO2 41.10 ABG pO2 85.8 ABG HCO3 28.3 H ABG O2 Sat (Measured) 96.9 ABG O2 Content No Result Required. ABG Base Excess 4.1 H Sai Test Positive Patient On Oxygen Yes O2 Delivery Device Vent Oxygen Flow Rate 30% Vent Mode A/c Vent Rate 12 Mechanical Rate Yes PEEP 5.0 Pressure Support Vent 350 Sodium 140 Potassium 4.1 Chloride 102 Carbon Dioxide 27 Anion Gap 11 BUN 35.6 H Creatinine 3.7 H Est GFR (CKD-EPI)AfAm 13.03 Est GFR (CKD-EPI)NonAf 11.24 POC Glucometer 154 Random Glucose 153 H Calcium 8.0 L Phosphorus 4.3 Magnesium 2.3 Total Bilirubin 0.3 AST 39 H ALT 15 Alkaline Phosphatase 241 H Total Protein 5.4 L Albumin 1.4 L 01/30/20 11:41 WBC RBC Hgb Hct MCV MCH MCHC RDW Plt Count MPV Absolute Neuts (auto) Neutrophils % Lymphocytes % Monocytes % Eosinophils % Basophils % Nucleated RBC % Anticoagulation Therapy Puncture Site Patient Temperature ABG pH ABG pCO2 ABG pO2 ABG HCO3 ABG O2 Sat (Measured) ABG O2 Content ABG Base Excess Sai Test Patient On Oxygen O2 Delivery Device Oxygen Flow Rate Vent Mode Vent Rate Mechanical Rate PEEP Pressure Support Vent Sodium Potassium Chloride Carbon Dioxide Anion Gap BUN Creatinine Est GFR (CKD-EPI)AfAm Est GFR (CKD-EPI)NonAf POC Glucometer 195 Random Glucose Calcium Phosphorus Magnesium Total Bilirubin AST ALT Alkaline Phosphatase Total Protein Albumin Problem List - Problems (1) ESRD on dialysis Code(s): N18.6 - END STAGE RENAL DISEASE; Z99.2 - DEPENDENCE ON RENAL DIALYSIS (2) Altered mental status Code(s): R41.82 - ALTERED MENTAL STATUS, UNSPECIFIED (3) Diabetes Code(s): E11.9 - TYPE 2 DIABETES MELLITUS WITHOUT COMPLICATIONS (4) Lactic acidosis Code(s): E87.2 - ACIDOSIS (5) Pneumonia, aspiration Code(s): J69.0 - PNEUMONITIS DUE TO INHALATION OF FOOD AND VOMIT Assessment/Plan Acute Respiratory Failure Acute CVA Pneumonia likely Aspiration ESRD on HD HTN DM Hyperlipidemia h/o CVA -LTVV; goal plat<30 -Pulm toilet; aspiration precautions -Monitor off sedation -ABX coverage -Monitor BMP and electrolytes -HD as per nephrology -VTE prophylaxis and GI proph -Poor overall grave prognosis -Cont goals of care discussion with family -Wean trials as tolerated Dr Alonzo Critical care time spent in reviewing chart, evaluating patient and formulating plan - 36 minutes.
--- NOTE | 2020-01-30 16:45 | PN ---
Progress Note, Physician Chief Complaint: EXTUBATED UNRESPONSIVE AFEBRILE WBC IMPROVED BREATHING NON-LABORED - Current Medication List Current Medications: Active Medications Chlorhexidine Gluconate (Hibiclens For Decolonization -) 1 applic TP HS [facility] Last Admin: 01/29/20 23:02 Dose: 1 applic Documented by: Collagenase (Santyl -) 1 applic TP DAILY [facility]; Protocol Last Admin: 01/30/20 09:19 Dose: 1 applic Documented by: Sodium Chloride (Normal Saline -) 250 mls @ 3,000 mls/hr IV PRN PRN PRN Reason: Hypotension during Dialysis Stop: 01/27/20 14:39 Fentanyl (Sublimaze Ivpb) 500 mcg in 100 mls @ 1 mls/hr IVPB TITR [facility]; Protocol Last Admin: 01/30/20 06:31 Dose: Not Given Documented by: Sodium Chloride (Normal Saline -) 250 mls @ 3,000 mls/hr IV PRN PRN PRN Reason: Hypotension during Dialysis Stop: 01/31/20 09:51 Insulin Aspart (Novolog Vial Sliding Scale -) 1 vial SQ ACHS [facility]; Protocol Last Admin: 01/30/20 16:37 Dose: Not Given Documented by: Mupirocin (Bactroban Ointment (For Decolonization) -) 1 applic NS BID [facility] Stop: 01/31/20 21:59 Last Admin: 01/30/20 09:20 Dose: 1 applic Documented by: - Objective Vital Signs: Vital Signs Temperature 98.9 F 01/30/20 14:24 Pulse Rate 104 H 01/30/20 14:24 Respiratory Rate 18 01/30/20 14:24 Blood Pressure 140/71 01/30/20 14:24 O2 Sat by Pulse Oximetry (%) 100 01/30/20 14:24 Constitutional: Yes: No Distress, Cachectic Cardiovascular: Yes: Regular Rate and Rhythm, S1, S2 Respiratory: Yes: Diminished Gastrointestinal: Yes: Normal Bowel Sounds, Soft. No: Tenderness Edema: No Labs: CBC, BMP 01/30/20 06:15 01/30/20 06:15 INR, PTT INR 1.11 (0.83-1.09) H 01/23/20 12:25 Assessment/Plan S/P ACUTE CVA S/P RESP FAILURE/ EXTUBATION PROBABLE ASP RLL PNEUMONIA ESRD LEUKOCYTOSIS IMPROVED OBS ON EMPIRIC ZOSYN SINCE 01/15/20 WILL D/C ANTIBIOTIC, RECULTURE OFF FOR RECURRENT TEMP/INC WBC
[2020-01-30] MEDS: CHLORHEXIDINE GLUCONATE 4% CLEANSER FOR DECOLONIZATION TP SCH (23:38)
[2020-01-31] MEDS: INSULIN SLIDING SCALE (NOVOLOG) 1 VIAL SQ SCH ×4 (06:44→22:30)
[2020-01-31 07:23] LABS: BASO % 1.3 % (0-2.0); EOS % 1.9 % (0-4.5); HEMOGLOBIN 9.3 GM/dL (10.7-15.3); LYMPH % 15.2 % (8-40); MCH 31.2 pg (25.7-33.7); MCHC 31.9 g/dl (32.0-36.0); MEAN CELL VOLUME 97.8 fl (80-96); MEAN PLT VOLUME 9.6 fl (7.5-11.1); NEUT % 73.6 % (42.8-82.8); RBC 2.97 M/mm3 (3.60-5.2); RDW 18.7 % (11.6-15.6); WHITE BLOOD COUNT 10.5 K/mm3 (4.0-10.0)
[2020-01-31 07:40] LABS: ALBUMIN 1.4 g/dl (3.4-5.0); BILIRUBIN,TOTAL 0.4 mg/dL (0.2-1); BLOOD UREA NITROGEN 16.6 mg/dL (7-18); CALCIUM 7.6 mg/dL (8.5-10.1); MAGNESIUM 2.1 mg/dL (1.8-2.4); TOT PROT 5.4 g/dl (6.4-8.2)
[2020-01-31 07:42] LABS: CREATININE 2.1 mg/dL (0.55-1.3)
[2020-01-31] MEDS: MUPIROCIN 2% TOPICAL OINTMENT FOR DECOLONIZATION NS SCH (09:14)
[2020-01-31] MEDS: COLLAGENASE CLOSTRIDIUM HIST. 30 GRAMS TUBE TP SCH (09:14)
[2020-01-31 09:20] LABS: PLATELET ESTIMATE INCREASED
[2020-01-31 10:04] LABS: PLATELET COUNT 424 K/MM3 (134-434)
--- NOTE | 2020-01-31 11:14 | PN ---
Progress Note (short form) - Note Progress Note: Transfer note: Subjective: Pt is 74 yo F with PMH CVA, ESRD (on HD), HTN, HLD, DM, sacral ulcer. Pt was originally located 4S and was desaturating to SpO2 ~70's with increased work of breathing, most likely due to aspiration. Pt was admitted to ICU for acute hypoxic respiratory failure. Objective: Last Vital Signs Temp Pulse Resp BP Pulse Ox 98.3 F 88 17 153/78 96 01/31/20 02:00 01/31/20 08:00 01/31/20 09:00 01/31/20 08:00 01/31/20 09:00 General: Minimally responsive to sternal rub. HEENT: NCAT, pupils constricted and sluggish to light. Cardio: S1, S2 present. Regular rate and rhythm, no murmurs Pulmonary: Scattered b/l rhonchi Abd: bowel sounds present, soft, non-distended. Extremities: warm, dry, no edema Assessment/Plan: Pt is 74 yo F with PMH CVA, ESRD (on HD), HTN, HLD, DM, sacral ulcer admitted to ICU for acute hypoxic respiratory failure. Pt was originally located 4S and was desaturating to SpO2 ~70's with increased work of breathing, most likely due to aspiration. Rapid response was called and family notified of event. Family subsequently rescinded DNR. Pt was intubated 01/26 and was placed on full code status. Pt was on minimal vent settings and was placed on CPAP mode on 01/29 and monitored. Pt tolerated CPAP well for 20 minutes. RSBI = 67 and was subsequently extubated and placed on ventimask. Pt tolerated ventimask overnight, saturating well at 100%. Pt is pending PEG tube placement scheduled for 01/30. Pt was minimally responsive at baseline. Goals of care discussion ongoing with family. Palliative care on board with goals of care discussion. Pt is hemodynamically stable and optimized for transfer to medical surgical floor. Problem list: Neuro CVA history Bihemispheric stroke with minimal responsiveness -Off sedation, minimally responsive at baseline. -Hold plavix for pending PEG tube placement 01/30. -CT head showed moderate size subacute infarct in L frontal lobe. Large R MCA subacute infarct w/ suggestion of interval minimal hemorrhagic transformation seen in R frontal lobe. -Neuro consulted. Cardiac PMH HTN PMH HLD -Held home labetolol, valsartan, amlodipine Pulmonary Acute hypoxic respiratory failure Aspiration PNA -CXR on 01/30 shows L lower lobe infiltrateatelectasis. -Place on CPAP mode for 20 minutes, tolerated well. Saturated 100%. RSBI 67. Extubated 01/29 and placed on ventimask. Saturating at 100%. Renal ESRD on HD -Last HD 01/29. -Cr 3.7 -Nephro consulted. Continue current management. Consider withholding HD given futility. May not be able to remove much fluid given current tachycardia. ID Aspiration PNA Sacral ulcer -Discontinue Zosyn (on zosyn since 01/14) -Continue application Collegenase (Santyl) -ID consulted. Recommended discontinue zosyn and reculture off for current temperature and increased WBC. -COVID negative Endocrine Diabetes mellitus Hypokalemia, resolved -ISS + BGM FEN -NS 250 mls -follow electrolytes and replete as needed -Feeds at 40 (nepro) Px -DVT: SCD b/l LTD -NGT 01/26 Family discussion: Goals of care discussion ongoing. Full code. Palliative care saw pt, discussed GOC with daughter. Pt's daughter would like to see pt before making decision. Spoke to family at bedside. Understood pt's risks of aspiration. Requested social worker psychiatric for further conversation of resources. Also wanted to proceed with PEG tube placement. Dispo: Transfer to med-surg
--- NOTE | 2020-01-31 11:39 | PN ---
Teaching Attending Note Name of Resident: Kiley Devi ATTENDING PHYSICIAN STATEMENT I saw and evaluated the patient. I reviewed the resident's note and discussed the case with the resident. I agree with the resident's findings and plan as documented. SUBJECTIVE: Pt seen and examined in the ICU. Extubated yesterday without incident. Pt poorly responsive but saturating well on nasal cannula. OBJECTIVE: Vital Signs Period Temp Pulse Resp BP Sys/Ramirez Pulse Ox Last 24 Hr 97.1 F-98.9 F 74-108 13-19 113-159/62-81 96-100 Intake & Output 01/28/20 01/29/20 01/30/20 01/31/20 23:59 23:59 23:59 23:59 Intake Total 795 1065 2170 Output Total 0 0 900 Balance 795 1065 1270 Gen: NAD at rest Heart: RRR Lung: bilateral rhonchi Abd: soft, nontender Ext: no edema CBC, BMP 01/31/20 06:10 01/31/20 06:00 Active Medications Chlorhexidine Gluconate (Hibiclens For Decolonization -) 1 applic TP HS JOSE Last Admin: 01/30/20 23:38 Dose: 1 applic Documented by: Collagenase (Santyl -) 1 applic TP DAILY JOSE; Protocol Last Admin: 01/31/20 09:14 Dose: 1 applic Documented by: Sodium Chloride (Normal Saline -) 250 mls @ 3,000 mls/hr IV PRN PRN PRN Reason: Hypotension during Dialysis Stop: 01/31/20 09:51 Insulin Aspart (Novolog Vial Sliding Scale -) 1 vial SQ ACHS JOSE; Protocol Last Admin: 01/31/20 11:30 Dose: Not Given Documented by: Mupirocin (Bactroban Ointment (For Decolonization) -) 1 applic NS BID JOSE Stop: 01/31/20 21:59 Last Admin: 01/31/20 09:14 Dose: 1 applic Documented by: ASSESSMENT AND PLAN: Acute Hypoxic Respiratory Failure Acute CVA Pneumonia likely Aspiration ESRD on HD HTN DM Hyperlipidemia h/o CVA - completed antibiotics - O2 to keep SpO2 >90% - HD per renal - aspiration precautions - enteral feeds - DVT prophylaxis - continue discussions regarding goals of care, advanced directives - can monitor on floor
[2020-01-31] MEDS: DEXTROSE 5%-LACTATED RINGERS 1,000 ML IV SCH (12:00)
--- NOTE | 2020-01-31 14:24 | PN ---
Progress Note (short form) - Note Progress Note: RENAL In ICU extubated required intubation over weekend and has had some reexpansion of lung she is unresponsive Last Vital Signs Temp Pulse Resp BP Pulse Ox 97.1 F L 90 18 158/84 98 01/31/20 10:00 01/31/20 12:00 01/31/20 12:00 01/31/20 12:00 01/31/20 10:00 lungs clear cvs s1s2 rr abd soft ext upper ext edema neuro unresponsive CBC, BMP 01/31/20 06:10 01/31/20 06:00 Current Medications Generic Name Dose Route Start Last Admin Trade Name Freq PRN Reason Stop Dose Admin Chlorhexidine Gluconate 1 applic 01/26/20 22:00 01/30/20 23:38 Hibiclens For Decolonization - TP 1 applic HS JOSE Administration Collagenase 1 applic 01/27/20 10:00 01/31/20 09:14 Santyl - TP 1 applic DAILY JOSE Administration Protocol Sodium Chloride 250 mls @ 3,000 mls/hr 01/30/20 09:51 Normal Saline - IV 01/31/20 09:51 PRN PRN Hypotension during Dialysis Dextrose/Lactated Ringer's 1,000 mls @ 42 mls/hr 01/31/20 12:00 D5-Lr - IV ASDIR JOSE Insulin Aspart 1 vial 01/28/20 07:00 01/31/20 11:30 Novolog Vial Sliding Scale - SQ Not Given ACHS JOSE Protocol Mupirocin 1 applic 01/26/20 22:00 01/31/20 09:14 Bactroban Ointment (For Decolonization) - NS 01/31/20 21:59 1 applic BID JOSE Administration IMPRESSION esrd htn s/p cva x 2 hypokalemia resolved covid 19 neg hypernatremia resolved PLAN no changes will reevaluate tomorrow for possible HD MV
--- NOTE | 2020-01-31 15:10 | PN ---
Physical Exam: SUBJECTIVE: Patient seen and examined. Pt remained minimally responsive. No acute overnight events. OBJECTIVE: Vital Signs Period Temp Pulse Resp BP Sys/Ramirez Pulse Ox Last 24 Hr 97.1 F-98.4 F 74-100 14-18 129-159/73-84 96-100 GENERAL: The patient is off sedation, remained minimally responsive. Pt slightly pulls away from sternal rub. HEENT: NCAT, on nasal cannula. Pupils constricted, sluggish reaction to light b/l. LUNGS: scattered rhonchi b/l HEART: Regular rate and rhythm, S1, S2 without murmur ABDOMEN: Soft nondistended, bowel sounds present in all 4 quadrants. EXTREMITIES: warm, well-perfused, no edema. SKIN: Warm, dry Laboratory Last Values WBC 10.5 K/mm3 (4.0-10.0) H 01/31/20 06:10 RBC 2.97 M/mm3 (3.60-5.2) L 01/31/20 06:10 Hgb 9.3 GM/dL (10.7-15.3) L 01/31/20 06:10 Hct 29.0 % (32.4-45.2) L 01/31/20 06:10 MCV 97.8 fl (80-96) H 01/31/20 06:10 MCH 31.2 pg (25.7-33.7) 01/31/20 06:10 MCHC 31.9 g/dl (32.0-36.0) L 01/31/20 06:10 RDW 18.7 % (11.6-15.6) H 01/31/20 06:10 Plt Count 424 K/MM3 (134-434) 01/31/20 06:10 MPV 9.6 fl (7.5-11.1) 01/31/20 06:10 Absolute Neuts (auto) 7.8 K/mm3 (1.5-8.0) 01/31/20 06:10 Total Counted 100 01/15/20 08:40 Neutrophils % 73.6 % (42.8-82.8) 01/31/20 06:10 Neutrophils % (Manual) 79.0 % (42.8-82.8) 01/15/20 08:40 Band Neutrophils % 2.0 % 01/15/20 08:40 Lymphocytes % 15.2 % (8-40) 01/31/20 06:10 Lymphocytes % (Manual) 13.0 % (8-40) 01/15/20 08:40 Monocytes % 8.0 % (3.8-10.2) 01/31/20 06:10 Monocytes % (Manual) 4 % (3.8-10.2) 01/15/20 08:40 Eosinophils % 1.9 % (0-4.5) 01/31/20 06:10 Eosinophils % (Manual) 0.0 % (0-4.5) 01/15/20 08:40 Basophils % 1.3 % (0-2.0) 01/31/20 06:10 Basophils % (Manual) 1.0 % (0-2.0) 01/15/20 08:40 Nucleated RBC % 0 % (0-0) 01/31/20 06:10 Metamyelocytes 1 % (0-2) 01/15/20 08:40 Hypochromia 0 01/18/20 06:10 Platelet Estimate Increased 01/31/20 06:10 Platelet Comment No clumping noted 01/15/20 08:40 Platelet Comment Large platelets 01/15/20 08:40 Polychromasia 1+ 01/18/20 06:10 Poikilocytosis 1+ 01/18/20 06:10 Anisocytosis 1+ 01/18/20 06:10 Microcytosis 1+ 01/18/20 06:10 Macrocytosis 0 01/18/20 06:10 [place] Cells 1+ 01/18/20 06:10 PT with INR 13.10 SEC (9.7-13.0) H 01/23/20 12:25 INR 1.11 (0.83-1.09) H 01/23/20 12:25 PTT (Actin FS) 29.7 SECONDS (25.2-36.5) 01/14/20 20:10 Anticoagulation Therapy No Result Required. 01/30/20 07:00 Puncture Site Right radial 01/30/20 07:00 Patient Temperature No Result Required. 01/30/20 07:00 ABG pH 7.456 (7.350-7.450) H 01/30/20 07:00 ABG pCO2 41.10 mmHg (35-45) 01/30/20 07:00 ABG pO2 85.8 mmHg (80-100) 01/30/20 07:00 ABG HCO3 28.3 mmol/L (22-27) H 01/30/20 07:00 ABG O2 Sat (Measured) 96.9 mmHg (95-98) 01/30/20 07:00 ABG O2 Content No Result Required. 01/30/20 07:00 ABG Base Excess 4.1 mmol/L (-2-2) H 01/30/20 07:00 Sai Test Positive 01/30/20 07:00 VBG pH 7.309 (7.310-7.410) L 01/14/20 20:30 POC VBG pCO2 50.0 mmHg (38-52) 01/14/20 20:30 POC VBG pO2 68.5 mmHg (28-48) H 01/14/20 20:30 VBG HCO3 24.6 mmol/L (23-29) 01/14/20 20:30 VBG O2 Sat (Rayray) 91.9 % (70-80) H 01/14/20 20:30 VBG Base Excess -2.2 mmol/L (-2-2) L 01/14/20 20:30 Patient On Oxygen Yes 01/30/20 07:00 O2 Delivery Device Vent 01/30/20 07:00 Oxygen Flow Rate 30% 01/30/20 07:00 Vent Mode A/c 01/30/20 07:00 Vent Rate 12 01/30/20 07:00 Mechanical Rate Yes 01/30/20 07:00 PEEP 5.0 cmH2O 01/30/20 07:00 Pressure Support Vent 350 01/30/20 07:00 Sodium 136 mmol/L (136-145) 01/31/20 06:00 Potassium 4.0 mmol/L (3.5-5.1) 01/31/20 06:00 Chloride 99 mmol/L (98-107) 01/31/20 06:00 Carbon Dioxide 27 mmol/L (21-32) 01/31/20 06:00 Anion Gap 11 MMOL/L (8-16) 01/31/20 06:00 BUN 16.6 mg/dL (7-18) 01/31/20 06:00 Creatinine 2.1 mg/dL (0.55-1.3) H 01/31/20 06:00 Est GFR (CKD-EPI)AfAm 25.84 01/31/20 06:00 Est GFR (CKD-EPI)NonAf 22.30 01/31/20 06:00 POC Glucometer 95 UNITS (80-120) 01/31/20 11:25 Random Glucose 104 mg/dL (74-106) 01/31/20 06:00 Lactic Acid 1.9 mmol/L (0.4-2.0) 01/26/20 23:40 Calcium 7.6 mg/dL (8.5-10.1) L 01/31/20 06:00 Phosphorus 3.0 mg/dL (2.5-4.9) 01/31/20 06:00 Magnesium 2.1 mg/dL (1.8-2.4) 01/31/20 06:00 Total Bilirubin 0.4 mg/dL (0.2-1) 01/31/20 06:00 Direct Bilirubin 0.1 mg/dL (0.0-0.2) 01/28/20 05:40 AST 82 U/L (15-37) H 01/31/20 06:00 ALT 18 U/L (13-61) 01/31/20 06:00 Alkaline Phosphatase 163 U/L (45-117) H 01/31/20 06:00 Troponin I 0.32 ng/ml (0.00-0.05) H 01/27/20 05:00 Total Protein 5.4 g/dl (6.4-8.2) L 01/31/20 06:00 Albumin 1.4 g/dl (3.4-5.0) L 01/31/20 06:00 Beta-Hydroxybutyrate 8.7 mg/dL (0.2-2.8) H 01/15/20 08:40 TSH 1.32 uIU/ml (0.358-3.74) 01/14/20 20:10 COVID-19 ([facility]) Not detected (Not Detected) 01/15/20 00:30 Hep Bs Antigen Negative (Negative) 01/15/20 14:50 Hep C Ab Diagnostic 0.1 s/co ratio (0.0-0.9) 01/15/20 14:50 Active Medications Chlorhexidine Gluconate (Hibiclens For Decolonization -) 1 applic TP HS JOSE Last Admin: 01/30/20 23:38 Dose: 1 applic Documented by: Collagenase (Santyl -) 1 applic TP DAILY JOSE; Protocol Last Admin: 01/31/20 09:14 Dose: 1 applic Documented by: Sodium Chloride (Normal Saline -) 250 mls @ 3,000 mls/hr IV PRN PRN PRN Reason: Hypotension during Dialysis Stop: 01/31/20 09:51 Dextrose/Lactated Ringer's (D5-Lr -) 1,000 mls @ 42 mls/hr IV ASDIR [facility] Insulin Aspart (Novolog Vial Sliding Scale -) 1 vial SQ ACHS JOSE; Protocol Last Admin: 01/31/20 11:30 Dose: Not Given Documented by: Mupirocin (Bactroban Ointment (For Decolonization) -) 1 applic NS BID [facility] Stop: 01/31/20 21:59 Last Admin: 01/31/20 09:14 Dose: 1 applic Documented by: ASSESSMENT/PLAN: 74 year old female w/ PMH of CVA, ESRD on HD, HTN, HLD, DM, sacral ulcer admitted to ICU for acute hypoxic respiratory failure. Pt was on 4S with SpO2 ~70 with increased work of breathing. Thus, rapid response called. Family was notified of pt's condition and rescinded DNR. Received HD 01/29. Pt tolerated CPAP mode for 20 minutes. RSBI was 67. Extubated 01/29. GOC discussion ongoing. No acute overnight events. Pt for PEG tube placement today (01/30). Neuro CVA history Bihemispheric stroke with minimal responsiveness -Off sedation, minimally responsive at baseline. -Hold plavix for pending PEG tube placement 01/30. -CT head showed moderate size subacute infarct in L frontal lobe. Large R MCA subacute infarct w/ suggestion of interval minimal hemorrhagic transformation seen in R frontal lobe. -Neuro consulted. Cardiac PMH HTN PMH HLD -Held home labetolol, valsartan, amlodipine Pulmonary Acute hypoxic respiratory failure Aspiration PNA -CXR on 01/30 - progressive density in L base, atelectasis/infiltrates. -Place on CPAP mode for 20 minutes, tolerated well. Saturated 100%. RSBI 67. Extubated 01/29 and placed on ventimask. Saturating at 100%. Renal ESRD on HD -Cr 2.1 -Nephro consulted. Continue current management. HD for tomorrow. ID Aspiration PNA Sacral ulcer -Discontinue Zosyn (on zosyn since 01/14) -Continue application Collegenase (Santyl) -ID consulted. Recommended discontinue zosyn and reculture off for current temperature and increased WBC. -COVID negative Endocrine Diabetes mellitus Hypokalemia, resolved -ISS +BGM FEN -D5/LR @ 42 -follow electrolytes and replete as needed -Feeds at 40 (nepro) Px -DVT: SCD b/l LTD -NGT 01/26 Family discussion: Goals of care discussion ongoing. Full code. Palliative care saw pt, discussed GOC with family. Dispo: Continue ICU monitoring. PEG placement today. Visit type - Emergency Visit Emergency Visit: Yes ED Registration Date: 01/15/20 Care time: The patient presented to the Emergency Department on the above date and was hospitalized for further evaluation of their emergent condition. - New Patient This patient is new to me today: No - Critical Care Critical Care patient: Yes Total Critical Care Time (in minutes): 36 Critical Care Statement: The care of this patient involved high complexity decision making to prevent further life threatening deterioration of the patient's condition and/or to evaluate & treat vital organ system(s) failure or risk of failure. - Medication Review Med list reviewed for High Risk Meds patients 65 and older: Yes ATTENDING PHYSICIAN STATEMENT I saw and evaluated the patient. I reviewed the resident's note and discussed the case with the resident. I agree with the resident's findings and plan as documented. SUBJECTIVE: OBJECTIVE: ASSESSMENT AND PLAN:
[2020-01-31] MEDS ORDERED: LABETALOL HCL 5 MG/1 ML (100MG/20 ML VIAL) IVPUSH ONE (16:59)
--- NOTE | 2020-01-31 17:52 | PN ---
Progress Note (short form) - Note Progress Note: extubated yesterday-- maintaining on NC not in distress Vital Signs - 24 hr 01/30/20 01/30/20 01/30/20 18:00 20:20 21:00 Temperature 98.4 F Pulse Rate 100 H 85 Pulse Rate [ Right Upper Arm ] Respiratory 16 Rate Respiratory Rate [Right Upper Arm] Blood Pressure 147/77 Blood Pressure [Right Upper Arm] O2 Sat by Pulse 100 100 Oximetry (%) O2 Sat by Pulse Oximetry (%) [ Right Upper Arm ] 01/30/20 01/31/20 01/31/20 22:00 02:00 04:20 Temperature 97.9 F 98.3 F Pulse Rate 85 90 74 Pulse Rate [ Right Upper Arm ] Respiratory 18 15 14 Rate Respiratory Rate [Right Upper Arm] Blood Pressure 159/81 129/79 138/73 Blood Pressure [Right Upper Arm] O2 Sat by Pulse 100 100 100 Oximetry (%) O2 Sat by Pulse Oximetry (%) [ Right Upper Arm ] 01/31/20 01/31/20 01/31/20 08:00 09:00 10:00 Temperature 97.1 F L Pulse Rate 88 89 Pulse Rate [ Right Upper Arm ] Respiratory 17 17 17 Rate Respiratory Rate [Right Upper Arm] Blood Pressure 153/78 152/77 Blood Pressure [Right Upper Arm] O2 Sat by Pulse 100 96 98 Oximetry (%) O2 Sat by Pulse Oximetry (%) [ Right Upper Arm ] 01/31/20 01/31/20 01/31/20 12:00 14:00 15:09 Temperature 97.7 F Pulse Rate 90 83 97 H Pulse Rate [ Right Upper Arm ] Respiratory 18 18 20 Rate Respiratory Rate [Right Upper Arm] Blood Pressure 158/84 174/85 H 160/82 Blood Pressure [Right Upper Arm] O2 Sat by Pulse 98 100 Oximetry (%) O2 Sat by Pulse Oximetry (%) [ Right Upper Arm ] 01/31/20 01/31/20 01/31/20 15:50 16:00 16:10 Temperature Pulse Rate Pulse Rate [ 97 H 100 H 98 H Right Upper Arm ] Respiratory Rate Respiratory 20 20 20 Rate [Right Upper Arm] Blood Pressure Blood Pressure 168/86 176/92 H 179/99 H [Right Upper Arm] O2 Sat by Pulse Oximetry (%) O2 Sat by Pulse 100 100 100 Oximetry (%) [ Right Upper Arm ] 01/31/20 01/31/20 01/31/20 16:16 17:00 17:41 Temperature 97 F L Pulse Rate 91 H 93 H 94 H Pulse Rate [ Right Upper Arm ] Respiratory 20 18 20 Rate Respiratory Rate [Right Upper Arm] Blood Pressure 173/98 H 175/95 H 153/90 Blood Pressure [Right Upper Arm] O2 Sat by Pulse 100 Oximetry (%) O2 Sat by Pulse Oximetry (%) [ Right Upper Arm ] Current Medications Generic Name Dose Route Start Last Admin Trade Name Freamadou PRN Reason Stop Dose Admin Chlorhexidine Gluconate 1 applic 01/26/20 22:00 01/30/20 23:38 Hibiclens For Decolonization - TP 1 applic HS JOSE Administration Collagenase 1 applic 01/27/20 10:00 01/31/20 09:14 Santyl - TP 1 applic DAILY JOSE Administration Protocol Sodium Chloride 250 mls @ 3,000 mls/hr 01/30/20 09:51 Normal Saline - IV 01/31/20 09:51 PRN PRN Hypotension during Dialysis Dextrose/Lactated Ringer's 1,000 mls @ 42 mls/hr 01/31/20 12:00 01/31/20 12:00 D5-Lr - IV 42 mls/hr ASDIR JOSE Administration Insulin Aspart 1 vial 01/28/20 07:00 01/31/20 17:41 Novolog Vial Sliding Scale - SQ Not Given ACHS JOSE Protocol Mupirocin 1 applic 01/26/20 22:00 01/31/20 09:14 Bactroban Ointment (For Decolonization) - NS 01/31/20 21:59 1 applic BID JOSE Administration Laboratory Results - last 24 hr 01/30/20 01/31/20 01/31/20 23:18 06:00 06:10 WBC 10.5 H RBC 2.97 L Hgb 9.3 L Hct 29.0 L MCV 97.8 H MCH 31.2 MCHC 31.9 L RDW 18.7 H Plt Count 424 MPV 9.6 Absolute Neuts (auto) 7.8 Neutrophils % 73.6 Lymphocytes % 15.2 Monocytes % 8.0 Eosinophils % 1.9 Basophils % 1.3 Nucleated RBC % 0 Platelet Estimate Increased Sodium 136 Potassium 4.0 Chloride 99 Carbon Dioxide 27 Anion Gap 11 BUN 16.6 Creatinine 2.1 H Est GFR (CKD-EPI)AfAm 25.84 Est GFR (CKD-EPI)NonAf 22.30 POC Glucometer 127 Random Glucose 104 Calcium 7.6 L Phosphorus 3.0 Magnesium 2.1 Total Bilirubin 0.4 AST 82 H ALT 18 Alkaline Phosphatase 163 H Total Protein 5.4 L Albumin 1.4 L 01/31/20 01/31/20 01/31/20 06:28 11:25 17:33 WBC RBC Hgb Hct MCV MCH MCHC RDW Plt Count MPV Absolute Neuts (auto) Neutrophils % Lymphocytes % Monocytes % Eosinophils % Basophils % Nucleated RBC % Platelet Estimate Sodium Potassium Chloride Carbon Dioxide Anion Gap BUN Creatinine Est GFR (CKD-EPI)AfAm Est GFR (CKD-EPI)NonAf POC Glucometer 101 95 82 Random Glucose Calcium Phosphorus Magnesium Total Bilirubin AST ALT Alkaline Phosphatase Total Protein Albumin intubated S1 S2 RRR Lungs decreased Abd- soft, NT No edema sedated ct head showed large right mca cerebral edema with minimal hemorrhagic transformation repeat ct head done on january 28 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 ESRD on HD aspiration pneumonia acute respiratory failure -- palliative care on the case -- iv antibiotics -- pt is now FULL CODE -- continue with current care -- poor prognosis -- peg tube placement may not be beneficial as she can have aspiration with GT feedings-- pt will be getting peg placed today as per family request --i discussed with one of pt's daughters- Pino-- she works in [employer] - I explained the poor prognosis, the risks of infections, worsening bed sores, aspiration pneumonia, worsening stroke She will be speaking with family --family to come tomorrow to discuss with palliative care Problem List - Problems (1) Altered mental status Code(s): R41.82 - ALTERED MENTAL STATUS, UNSPECIFIED (2) Lactic acidosis Code(s): E87.2 - ACIDOSIS (3) Pneumonia, aspiration Code(s): J69.0 - PNEUMONITIS DUE TO INHALATION OF FOOD AND VOMIT (4) Stroke Code(s): I63.9 - CEREBRAL INFARCTION, UNSPECIFIED (5) ESRD on dialysis Code(s): N18.6 - END STAGE RENAL DISEASE; Z99.2 - DEPENDENCE ON RENAL DIALYSIS (6) Hypertension Code(s): I10 - ESSENTIAL (PRIMARY) HYPERTENSION
--- NOTE | 2020-01-31 19:48 | PROC ---
Procedure Note Procedure: Pt returned from IR into ICU bed 2 after PEG tube placement by Dr. Denton, noted significant bleeding from around the skin site which did not stopped after 15 min of compression and surgicel. Noted bleeding likely from the skin site, closed surgical laceration with 4-0 nylon suture to both sides of the new PEG tube along with surgicel. Noted decreased bleeding 15 min after sutures. H/H, PT, PTT and INR orders placed approx [address] Lopez informed
[2020-01-31 19:51] LABS: INR 1.06 (0.83-1.09); PROTHROMBIN TIME (PATIENT) 12.5 SEC (9.7-13.0)
[2020-01-31] MEDS: CHLORHEXIDINE GLUCONATE 4% CLEANSER FOR DECOLONIZATION TP SCH (22:30)
[2020-02-01] MEDS ORDERED: ACETYLCYSTEINE 20% 200MG/ML 30 ML VIAL *FOR ORAL / INH USE ONLY NEB SCH (04:45)
[2020-02-01] MEDS ORDERED: ALBUTEROL SO4 0.083% IH SOL 2.5 MG/3 ML VIAL.NEB. NEB ONE (04:50)
[2020-02-01] MEDS ORDERED: ACETYLCYSTEINE 20% 200MG/ML 4 ML VIAL *FOR ORAL / INH USE ONLY ONE (04:50)
[2020-02-01] MEDS: INSULIN SLIDING SCALE (NOVOLOG) 1 VIAL SQ SCH ×4 (06:29→22:45)
[2020-02-01] MEDS: ACETYLCYSTEINE 20% 200MG/ML 30 ML VIAL *FOR ORAL / INH USE ONLY NEB SCH ×3 (07:00→20:51)
[2020-02-01] MEDS: ALBUTEROL SO4 0.083% IH SOL 2.5 MG/3 ML VIAL.NEB. NEB PRN ×3 (07:01→20:51)
[2020-02-01 07:19] LABS: ARTERIAL BLD GAS O2 SATURATION 95.6 mmHg (95-98); ARTERIAL BLOOD GAS BASE EXCESS 3.7 mmol/L (-2-2); ARTERIAL BLOOD GAS PO2 73.5 mmHg (80-100); ARTERIAL BLOOD GAS pH 7.467 (7.350-7.450)
[2020-02-01 07:32] LABS: BASO % 0.9 % (0-2.0); EOS % 0.7 % (0-4.5); HEMATOCRIT 22.1 % (32.4-45.2); HEMOGLOBIN 7.2 GM/dL (10.7-15.3); LYMPH % 12.4 % (8-40); MCH 31.2 pg (25.7-33.7); MCHC 32.6 g/dl (32.0-36.0); MEAN CELL VOLUME 95.8 fl (80-96); MEAN PLT VOLUME 9.4 fl (7.5-11.1); MONO % 7.1 % (3.8-10.2); NEUT % 78.9 % (42.8-82.8); PLATELET COUNT 508 K/MM3 (134-434); RBC 2.31 M/mm3 (3.60-5.2); RDW 18.2 % (11.6-15.6); WHITE BLOOD COUNT 11.4 K/mm3 (4.0-10.0)
[2020-02-01 07:41] LABS: BLOOD UREA NITROGEN 31.6 mg/dL (7-18); TOT PROT 5.4 g/dl (6.4-8.2)
[2020-02-01 07:43] LABS: ALBUMIN 1.4 g/dl (3.4-5.0); BILIRUBIN,TOTAL 0.3 mg/dL (0.2-1); CREATININE 2.8 mg/dL (0.55-1.3); PHOSPHOROUS 4.6 mg/dL (2.5-4.9)
--- NOTE | 2020-02-01 10:21 | PN ---
Progress Note (short form) - Note Progress Note: RENAL In ICU extubated required intubation over weekend and has had some reexpansion of lung she is unresponsive Last Vital Signs Temp Pulse Resp BP Pulse Ox 97.7 F 108 H 30 H 113/67 100 02/01/20 06:00 02/01/20 08:00 02/01/20 08:00 02/01/20 08:00 02/01/20 08:00 lungs clear cvs s1s2 rr abd soft ext upper ext edema neuro unresponsive CBC, BMP 02/01/20 06:45 02/01/20 06:45 Current Medications Generic Name Dose Route Start Last Admin Trade Name Freq PRN Reason Stop Dose Admin Acetylcysteine 600 mg 02/01/20 04:19 02/01/20 07:00 Mucomyst 20 Oral / Inh Use Only* NEB 02/01/20 20:01 600 mg RQID JOSE Administration Albuterol Sulfate 1 amp 02/01/20 04:30 02/01/20 07:01 Ventolin 0.083% Nebulizer Soln - NEB 1 amp Q4H PRN Administration SHORT OF BREATH/WHEEZING Chlorhexidine Gluconate 1 applic 01/26/20 22:00 01/31/20 22:30 Hibiclens For Decolonization - TP 1 applic HS JOSE Administration Collagenase 1 applic 01/27/20 10:00 01/31/20 09:14 Santyl - TP 1 applic DAILY JOSE Administration Protocol Sodium Chloride 250 mls @ 3,000 mls/hr 01/30/20 09:51 Normal Saline - IV 01/31/20 09:51 PRN PRN Hypotension during Dialysis Dextrose/Lactated Ringer's 1,000 mls @ 42 mls/hr 01/31/20 12:00 01/31/20 12:00 D5-Lr - IV 42 mls/hr ASDIR JOSE Administration Insulin Aspart 1 vial 01/28/20 07:00 02/01/20 06:29 Novolog Vial Sliding Scale - SQ Not Given ACHS JOSE Protocol IMPRESSION esrd htn s/p cva x 2- unresponsive hypokalemia resolved covid 19 neg hypernatremia resolved PLAN will dialyze repeat labs possible transfusion MV
[2020-02-01] MEDS ORDERED: SODIUM CHLORIDE 250 ML IV PRN (10:22)
--- NOTE | 2020-02-01 10:28 | PN ---
Progress Note (short form) - Note Progress Note: extubated -- maintaining on NC not in distress win[place] when examined did not open eyes to command had bleeding from peg site yesterday- sutured - no further bleeding going down to IR for KUB to determine if Peg tube to be used Vital Signs - 24 hr 01/30/20 01/30/20 01/30/20 18:00 20:20 21:00 Temperature 98.4 F Pulse Rate 100 H 85 Pulse Rate [ Right Upper Arm ] Respiratory 16 Rate Respiratory Rate [Right Upper Arm] Blood Pressure 147/77 Blood Pressure [Right Upper Arm] O2 Sat by Pulse 100 100 Oximetry (%) O2 Sat by Pulse Oximetry (%) [ Right Upper Arm ] 01/30/20 01/31/20 01/31/20 22:00 02:00 04:20 Temperature 97.9 F 98.3 F Pulse Rate 85 90 74 Pulse Rate [ Right Upper Arm ] Respiratory 18 15 14 Rate Respiratory Rate [Right Upper Arm] Blood Pressure 159/81 129/79 138/73 Blood Pressure [Right Upper Arm] O2 Sat by Pulse 100 100 100 Oximetry (%) O2 Sat by Pulse Oximetry (%) [ Right Upper Arm ] 01/31/20 01/31/20 01/31/20 08:00 09:00 10:00 Temperature 97.1 F L Pulse Rate 88 89 Pulse Rate [ Right Upper Arm ] Respiratory 17 17 17 Rate Respiratory Rate [Right Upper Arm] Blood Pressure 153/78 152/77 Blood Pressure [Right Upper Arm] O2 Sat by Pulse 100 96 98 Oximetry (%) O2 Sat by Pulse Oximetry (%) [ Right Upper Arm ] 01/31/20 01/31/20 01/31/20 12:00 14:00 15:09 Temperature 97.7 F Pulse Rate 90 83 97 H Pulse Rate [ Right Upper Arm ] Respiratory 18 18 20 Rate Respiratory Rate [Right Upper Arm] Blood Pressure 158/84 174/85 H 160/82 Blood Pressure [Right Upper Arm] O2 Sat by Pulse 98 100 Oximetry (%) O2 Sat by Pulse Oximetry (%) [ Right Upper Arm ] 01/31/20 01/31/20 01/31/20 15:50 16:00 16:10 Temperature Pulse Rate Pulse Rate [ 97 H 100 H 98 H Right Upper Arm ] Respiratory Rate Respiratory 20 20 20 Rate [Right Upper Arm] Blood Pressure Blood Pressure 168/86 176/92 H 179/99 H [Right Upper Arm] O2 Sat by Pulse Oximetry (%) O2 Sat by Pulse 100 100 100 Oximetry (%) [ Right Upper Arm ] 01/31/20 01/31/20 01/31/20 16:16 17:00 17:41 Temperature 97 F L Pulse Rate 91 H 93 H 94 H Pulse Rate [ Right Upper Arm ] Respiratory 20 18 20 Rate Respiratory Rate [Right Upper Arm] Blood Pressure 173/98 H 175/95 H 153/90 Blood Pressure [Right Upper Arm] O2 Sat by Pulse 100 Oximetry (%) O2 Sat by Pulse Oximetry (%) [ Right Upper Arm ] Current Medications Generic Name Dose Route Start Last Admin Trade Name Freq PRN Reason Stop Dose Admin Chlorhexidine Gluconate 1 applic 01/26/20 22:00 01/30/20 23:38 Hibiclens For Decolonization - TP 1 applic HS JOSE Administration Collagenase 1 applic 01/27/20 10:00 01/31/20 09:14 Santyl - TP 1 applic DAILY JOSE Administration Protocol Sodium Chloride 250 mls @ 3,000 mls/hr 01/30/20 09:51 Normal Saline - IV 01/31/20 09:51 PRN PRN Hypotension during Dialysis Dextrose/Lactated Ringer's 1,000 mls @ 42 mls/hr 01/31/20 12:00 01/31/20 12:00 D5-Lr - IV 42 mls/hr ASDIR JOSE Administration Insulin Aspart 1 vial 01/28/20 07:00 01/31/20 17:41 Novolog Vial Sliding Scale - SQ Not Given ACHS [facility] Protocol Mupirocin 1 applic 01/26/20 22:00 01/31/20 09:14 Bactroban Ointment (For Decolonization) - NS 01/31/20 21:59 1 applic BID JOSE Administration Laboratory Results - last 24 hr 01/30/20 01/31/20 01/31/20 23:18 06:00 06:10 WBC 10.5 H RBC 2.97 L Hgb 9.3 L Hct 29.0 L MCV 97.8 H MCH 31.2 MCHC 31.9 L RDW 18.7 H Plt Count 424 MPV 9.6 Absolute Neuts (auto) 7.8 Neutrophils % 73.6 Lymphocytes % 15.2 Monocytes % 8.0 Eosinophils % 1.9 Basophils % 1.3 Nucleated RBC % 0 Platelet Estimate Increased Sodium 136 Potassium 4.0 Chloride 99 Carbon Dioxide 27 Anion Gap 11 BUN 16.6 Creatinine 2.1 H Est GFR (CKD-EPI)AfAm 25.84 Est GFR (CKD-EPI)NonAf 22.30 POC Glucometer 127 Random Glucose 104 Calcium 7.6 L Phosphorus 3.0 Magnesium 2.1 Total Bilirubin 0.4 AST 82 H ALT 18 Alkaline Phosphatase 163 H Total Protein 5.4 L Albumin 1.4 L 01/31/20 01/31/20 01/31/20 06:28 11:25 17:33 WBC RBC Hgb Hct MCV MCH MCHC RDW Plt Count MPV Absolute Neuts (auto) Neutrophils % Lymphocytes % Monocytes % Eosinophils % Basophils % Nucleated RBC % Platelet Estimate Sodium Potassium Chloride Carbon Dioxide Anion Gap BUN Creatinine Est GFR (CKD-EPI)AfAm Est GFR (CKD-EPI)NonAf POC Glucometer 101 95 82 Random Glucose Calcium Phosphorus Magnesium Total Bilirubin AST ALT Alkaline Phosphatase Total Protein Albumin intubated S1 S2 RRR left side edematous Lungs decreased Abd- soft, NT, GT+ No edema sedated ct head showed large right mca cerebral edema with minimal hemorrhagic transformation repeat ct head done on january 28 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 - I explained the poor prognosis, the risks of infections, worsening bed sores, aspiration pneumonia, worsening stroke She will be speaking with family --family will discuss about GOC -- I spoke with trimming caser Problem List - Problems (1) Altered mental status Code(s): R41.82 - ALTERED MENTAL STATUS, UNSPECIFIED (2) Lactic acidosis Code(s): E87.2 - ACIDOSIS (3) Pneumonia, aspiration Code(s): J69.0 - PNEUMONITIS DUE TO INHALATION OF FOOD AND VOMIT (4) Stroke Code(s): I63.9 - CEREBRAL INFARCTION, UNSPECIFIED (5) ESRD on dialysis Code(s): N18.6 - END STAGE RENAL DISEASE; Z99.2 - DEPENDENCE ON RENAL DIALYSIS (6) Hypertension Code(s): I10 - ESSENTIAL (PRIMARY) HYPERTENSION
[2020-02-01] MEDS: COLLAGENASE CLOSTRIDIUM HIST. 30 GRAMS TUBE TP SCH (10:36)
--- NOTE | 2020-02-01 11:11 | PN ---
Physical Exam: SUBJECTIVE: Patient seen and examined. Pt remained extubated and minimally responsive. Peg tube placed yesterday. Overnight, pt had bleeding at the Peg tube site, despite compression for 15 minutes and surgiceal. 2 additional stitches and surgiceal were placed. Bleeding stopped. OBJECTIVE: Vital Signs Period Temp Pulse Resp BP Sys/Ramirez Pulse Ox Last 24 Hr 97 F-97.7 F 83-114 18-30 103-179/62-99 98-100 GENERAL: Minimally responsive HEENT: NCAT, pupils constricted and sluggish to light. LUNGS: Decreased lung sounds in the bases, rales at the L bronchus, scattered rhonchi HEART: Tachycardic. S1, S2 without murmur ABDOMEN: Soft, nondistended, bowel sounds present. Peg tube in place and is dry. EXTREMITIES: warm, well-perfused, no edema. SKIN: Warm, dry Laboratory Last Values WBC 11.4 K/mm3 (4.0-10.0) H 02/01/20 06:45 RBC 2.31 M/mm3 (3.60-5.2) L 02/01/20 06:45 Hgb 7.2 GM/dL (10.7-15.3) L 02/01/20 06:45 Hct 22.1 % (32.4-45.2) L D 02/01/20 06:45 MCV 95.8 fl (80-96) 02/01/20 06:45 MCH 31.2 pg (25.7-33.7) 02/01/20 06:45 MCHC 32.6 g/dl (32.0-36.0) 02/01/20 06:45 RDW 18.2 % (11.6-15.6) H 02/01/20 06:45 Plt Count 508 K/MM3 (134-434) H 02/01/20 06:45 MPV 9.4 fl (7.5-11.1) 02/01/20 06:45 Absolute Neuts (auto) 9.0 K/mm3 (1.5-8.0) H 02/01/20 06:45 Total Counted 100 01/15/20 08:40 Neutrophils % 78.9 % (42.8-82.8) 02/01/20 06:45 Neutrophils % (Manual) 79.0 % (42.8-82.8) 01/15/20 08:40 Band Neutrophils % 2.0 % 01/15/20 08:40 Lymphocytes % 12.4 % (8-40) 02/01/20 06:45 Lymphocytes % (Manual) 13.0 % (8-40) 01/15/20 08:40 Monocytes % 7.1 % (3.8-10.2) 02/01/20 06:45 Monocytes % (Manual) 4 % (3.8-10.2) 01/15/20 08:40 Eosinophils % 0.7 % (0-4.5) 02/01/20 06:45 Eosinophils % (Manual) 0.0 % (0-4.5) 01/15/20 08:40 Basophils % 0.9 % (0-2.0) 02/01/20 06:45 Basophils % (Manual) 1.0 % (0-2.0) 01/15/20 08:40 Nucleated RBC % 0 % (0-0) 02/01/20 06:45 Metamyelocytes 1 % (0-2) 01/15/20 08:40 Hypochromia 0 01/18/20 06:10 Platelet Estimate Increased 01/31/20 06:10 Platelet Comment No clumping noted 01/15/20 08:40 Platelet Comment Large platelets 01/15/20 08:40 Polychromasia 1+ 01/18/20 06:10 Poikilocytosis 1+ 01/18/20 06:10 Anisocytosis 1+ 01/18/20 06:10 Microcytosis 1+ 01/18/20 06:10 Macrocytosis 0 01/18/20 06:10 [place] Cells 1+ 01/18/20 06:10 PT with INR 12.50 SEC (9.7-13.0) 01/31/20 18:50 INR 1.06 (0.83-1.09) 01/31/20 18:50 PTT (Actin FS) 29.0 SECONDS (25.2-36.5) 01/31/20 18:50 Anticoagulation Therapy No Result Required. 02/01/20 06:48 Puncture Site No Result Required. 02/01/20 06:48 Patient Temperature No Result Required. 02/01/20 06:48 ABG pH 7.467 (7.350-7.450) H 02/01/20 06:48 ABG pCO2 39.10 mmHg (35-45) 02/01/20 06:48 ABG pO2 73.5 mmHg (80-100) L 02/01/20 06:48 ABG HCO3 27.6 mmol/L (22-27) H 02/01/20 06:48 ABG O2 Sat (Measured) 95.6 mmHg (95-98) 02/01/20 06:48 ABG O2 Content No Result Required. 02/01/20 06:48 ABG Base Excess 3.7 mmol/L (-2-2) H 02/01/20 06:48 Sai Test No Result Required. 02/01/20 06:48 VBG pH 7.309 (7.310-7.410) L 01/14/20 20:30 POC VBG pCO2 50.0 mmHg (38-52) 01/14/20 20:30 POC VBG pO2 68.5 mmHg (28-48) H 01/14/20 20:30 VBG HCO3 24.6 mmol/L (23-29) 01/14/20 20:30 VBG O2 Sat (Rayray) 91.9 % (70-80) H 01/14/20 20:30 VBG Base Excess -2.2 mmol/L (-2-2) L 01/14/20 20:30 Patient On Oxygen Yes 02/01/20 06:48 O2 Delivery Device Nc 02/01/20 06:48 Oxygen Flow Rate 4l 02/01/20 06:48 Vent Mode No Result Required. 02/01/20 06:48 Vent Rate No Result Required. 02/01/20 06:48 Mechanical Rate No Result Required. 02/01/20 06:48 PEEP No Result Required. 02/01/20 06:48 Pressure Support Vent No Result Required. 02/01/20 06:48 Sodium 137 mmol/L (136-145) 02/01/20 06:45 Potassium 4.0 mmol/L (3.5-5.1) 02/01/20 06:45 Chloride 98 mmol/L (98-107) 02/01/20 06:45 Carbon Dioxide 30 mmol/L (21-32) 02/01/20 06:45 Anion Gap 9 MMOL/L (8-16) 02/01/20 06:45 BUN 31.6 mg/dL (7-18) H 02/01/20 06:45 Creatinine 2.8 mg/dL (0.55-1.3) H 02/01/20 06:45 Est GFR (CKD-EPI)AfAm 18.25 02/01/20 06:45 Est GFR (CKD-EPI)NonAf 15.75 02/01/20 06:45 POC Glucometer 133 UNITS (80-120) 02/01/20 06:12 Random Glucose 156 mg/dL (74-106) H 02/01/20 06:45 Lactic Acid 1.9 mmol/L (0.4-2.0) 01/26/20 23:40 Calcium 8.0 mg/dL (8.5-10.1) L 02/01/20 06:45 Phosphorus 4.6 mg/dL (2.5-4.9) 02/01/20 06:45 Magnesium 2.0 mg/dL (1.8-2.4) 02/01/20 06:45 Total Bilirubin 0.3 mg/dL (0.2-1) 02/01/20 06:45 Direct Bilirubin 0.1 mg/dL (0.0-0.2) 01/28/20 05:40 AST 55 U/L (15-37) H 02/01/20 06:45 ALT 16 U/L (13-61) 02/01/20 06:45 Alkaline Phosphatase 127 U/L (45-117) H 02/01/20 06:45 Troponin I 0.32 ng/ml (0.00-0.05) H 01/27/20 05:00 Total Protein 5.4 g/dl (6.4-8.2) L 02/01/20 06:45 Albumin 1.4 g/dl (3.4-5.0) L 02/01/20 06:45 Beta-Hydroxybutyrate 8.7 mg/dL (0.2-2.8) H 01/15/20 08:40 TSH 1.32 uIU/ml (0.358-3.74) 01/14/20 20:10 COVID-19 ([facility]) Not detected (Not Detected) 01/15/20 00:30 Hep Bs Antigen Negative (Negative) 01/15/20 14:50 Hep C Ab Diagnostic 0.1 s/co ratio (0.0-0.9) 01/15/20 14:50 Crossmatch See Detail 01/31/20 06:15 Active Medications Acetylcysteine (Mucomyst 20 Oral / Inh Use Only*) 600 mg NEB RQID JOSE Stop: 02/01/20 20:01 Last Admin: 02/01/20 07:00 Dose: 600 mg Documented by: Albuterol Sulfate (Ventolin 0.083% Nebulizer Soln -) 1 amp NEB Q4H PRN PRN Reason: SHORT OF BREATH/WHEEZING Last Admin: 02/01/20 07:01 Dose: 1 amp Documented by: Chlorhexidine Gluconate (Hibiclens For Decolonization -) 1 applic TP HS JOSE Last Admin: 01/31/20 22:30 Dose: 1 applic Documented by: Collagenase (Santyl -) 1 applic TP DAILY JOSE; Protocol Last Admin: 02/01/20 10:36 Dose: 1 applic Documented by: Dextrose/Lactated Ringer's (D5-Lr -) 1,000 mls @ 42 mls/hr IV ASDIR [facility] Last Admin: 01/31/20 12:00 Dose: 42 mls/hr Documented by: Sodium Chloride (Normal Saline -) 250 mls @ 3,000 mls/hr IV PRN PRN PRN Reason: Hypotension during Dialysis Stop: 02/02/20 10:22 Insulin Aspart (Novolog Vial Sliding Scale -) 1 vial SQ ACHS JOSE; Protocol Last Admin: 02/01/20 06:29 Dose: Not Given Documented by: ASSESSMENT/PLAN: 74 year old female w/ PMH of CVA, ESRD on HD, HTN, HLD, DM, sacral ulcer admitted to ICU for acute hypoxic respiratory failure. Pt was on 4S with SpO2 ~70 with increased work of breathing. Thus, rapid response called. Family was notified of pt's condition and rescinded DNR. Received HD 01/29. Pt tolerated CPA P mode for 20 minutes. RSBI was 67. Extubated 01/29. GOC discussion ongoing. Pt received Peg tube 01/30. Overnight, pt had bleeding at the Peg tube site, despite compression for 15 minutes and surgiceal. 2 additional stitches and surgiceal were placed. Bleeding stopped. Pt is hemodynamically stable and is optimized for transfer. Neuro CVA history Bihemispheric stroke with minimal responsiveness -Off sedation, minimally responsive at baseline. -assess mental status. -CT head showed moderate size subacute infarct in L frontal lobe. Large R MCA subacute infarct w/ suggestion of interval minimal hemorrhagic transformation seen in R frontal lobe. -Neuro consulted. Recommendations appreciated. -Plavix held for Peg placement. Cardiac PMH HTN PMH HLD -Held home labetolol, valsartan, amlodipine -Monitor and maintain MAP>65 -Monitor and transfuse to keep Hb>8 Pulmonary Acute hypoxic respiratory failure Aspiration PNA -CXR on 01/31 - L lung atelectasis w/ L side mediastinal shift -Placed on CPAP mode for 20 minutes, tolerated well. Saturated 100%. RSBI 67. Extubated 01/29. On 2L NC. Saturating at 100%. -c/w Acetylcysteine, albuterol -c/w Chest physiotherapy and positional therapy -c/w suction of nasal/oropharynx GI s/p PEG placement -to be sent to IR for KUB to determine if peg tube can be used Renal ESRD on HD -Cr 2.8 -Nephro consulted. Continue current management. HD today 01/31. ID Aspiration PNA Sacral ulcer -Discontinue Zosyn (on zosyn since 01/14) -Continue application Collegenase (Santyl) -ID consulted. Recommended discontinue zosyn and reculture off for current temperature and increased WBC. -COVID negative Endocrine Diabetes mellitus Hypokalemia, resolved -ISS +BGM FEN -D5/LR @ 42, NS -follow electrolytes and replete as needed -Feeds at 40 (nepro) Px -DVT: SCD b/l -GI: PPI LTD -NGT 01/26 Family discussion/code status: Goals of care discussion ongoing. Palliative care saw pt, discussed GOC with family. FULL CODE. Dispo: Medically optimized for transfer. Visit type - Emergency Visit Emergency Visit: Yes ED Registration Date: 01/15/20 Care time: The patient presented to the Emergency Department on the above date and was hospitalized for further evaluation of their emergent condition. - New Patient This patient is new to me today: No - Critical Care Critical Care patient: Yes Total Critical Care Time (in minutes): 38 Critical Care Statement: The care of this patient involved high complexity decision making to prevent further life threatening deterioration of the patient's condition and/or to evaluate & treat vital organ system(s) failure or risk of failure. - Medication Review Med list reviewed for High Risk Meds patients 65 and older: Yes ATTENDING PHYSICIAN STATEMENT I saw and evaluated the patient. I reviewed the resident's note and discussed the case with the resident. I agree with the resident's findings and plan as documented. SUBJECTIVE: OBJECTIVE: ASSESSMENT AND PLAN:
--- NOTE | 2020-02-01 11:13 | PN ---
Teaching Attending Note Name of Resident: Kiley Devi ATTENDING PHYSICIAN STATEMENT I saw and evaluated the patient. I reviewed the resident's note and discussed the case with the resident. I agree with the resident's findings and plan as documented. SUBJECTIVE: Patient seen and examined in the ICU. Remains extubated. Poorly responsive. S/P PEG yesterday. CXR: Left opacification with slight mediastinal shift consistent with atelectasis. Gen: Extubated, poorly responsive off sedation, breathing non-labored Lungs: Diminished on the left, Intake & Output 01/29/20 01/30/20 01/31/20 02/01/20 23:59 23:59 23:59 23:59 Intake Total 1065 2170 469 Output Total 0 900 0 Balance 1065 1270 0 469 Last Vital Signs Temp Pulse Resp BP Pulse Ox 97.7 F 108 H 30 H 113/67 100 02/01/20 06:00 02/01/20 08:00 02/01/20 08:00 02/01/20 08:00 02/01/20 08:00 Active Medications Acetylcysteine (Mucomyst 20 Oral / Inh Use Only*) 600 mg NEB RQID JOSE Stop: 02/01/20 20:01 Last Admin: 02/01/20 07:00 Dose: 600 mg Documented by: Albuterol Sulfate (Ventolin 0.083% Nebulizer Soln -) 1 amp NEB Q4H PRN PRN Reason: SHORT OF BREATH/WHEEZING Last Admin: 02/01/20 07:01 Dose: 1 amp Documented by: Chlorhexidine Gluconate (Hibiclens For Decolonization -) 1 applic TP HS COUNTS INCLUDE 234 BEDS AT THE [facility] Last Admin: 01/31/20 22:30 Dose: 1 applic Documented by: Collagenase (Santyl -) 1 applic TP DAILY JOSE; Protocol Last Admin: 02/01/20 10:36 Dose: 1 applic Documented by: Dextrose/Lactated Ringer's (D5-Lr -) 1,000 mls @ 42 mls/hr IV ASDIR JOSE Last Admin: 01/31/20 12:00 Dose: 42 mls/hr Documented by: Sodium Chloride (Normal Saline -) 250 mls @ 3,000 mls/hr IV PRN PRN PRN Reason: Hypotension during Dialysis Stop: 02/02/20 10:22 Insulin Aspart (Novolog Vial Sliding Scale -) 1 vial SQ ACHS COUNTS INCLUDE 234 BEDS AT THE [facility]; Protocol Last Admin: 02/01/20 06:29 Dose: Not Given Documented by: few scattered rhonchi CV: S1S2 Ext: (+) PP PRACTICAL NURSING FACULTY: poorly responsive to noxious stimuli Laboratory Results - last 24 hr 01/31/20 01/31/20 01/31/20 06:15 11:25 17:33 WBC RBC Hgb Hct MCV MCH MCHC RDW Plt Count MPV Absolute Neuts (auto) Neutrophils % Lymphocytes % Monocytes % Eosinophils % Basophils % Nucleated RBC % PT with INR INR PTT (Actin FS) Anticoagulation Therapy Puncture Site Patient Temperature ABG pH ABG pCO2 ABG pO2 ABG HCO3 ABG O2 Sat (Measured) ABG O2 Content ABG Base Excess Sai Test Patient On Oxygen O2 Delivery Device Oxygen Flow Rate Vent Mode Vent Rate Mechanical Rate PEEP Pressure Support Vent Sodium Potassium Chloride Carbon Dioxide Anion Gap BUN Creatinine Est GFR (CKD-EPI)AfAm Est GFR (CKD-EPI)NonAf POC Glucometer 95 82 Random Glucose Calcium Phosphorus Magnesium Total Bilirubin AST ALT Alkaline Phosphatase Total Protein Albumin Crossmatch See Detail 01/31/20 01/31/20 02/01/20 18:50 22:26 06:12 WBC RBC Hgb Hct MCV MCH MCHC RDW Plt Count MPV Absolute Neuts (auto) Neutrophils % Lymphocytes % Monocytes % Eosinophils % Basophils % Nucleated RBC % PT with INR 12.50 INR 1.06 PTT (Actin FS) 29.0 Anticoagulation Therapy Puncture Site Patient Temperature ABG pH ABG pCO2 ABG pO2 ABG HCO3 ABG O2 Sat (Measured) ABG O2 Content ABG Base Excess Sai Test Patient On Oxygen O2 Delivery Device Oxygen Flow Rate Vent Mode Vent Rate Mechanical Rate PEEP Pressure Support Vent Sodium Potassium Chloride Carbon Dioxide Anion Gap BUN Creatinine Est GFR (CKD-EPI)AfAm Est GFR (CKD-EPI)NonAf POC Glucometer 108 133 Random Glucose Calcium Phosphorus Magnesium Total Bilirubin AST ALT Alkaline Phosphatase Total Protein Albumin Crossmatch 02/01/20 02/01/20 02/01/20 06:45 06:45 06:48 WBC 11.4 H RBC 2.31 L Hgb 7.2 L Hct 22.1 L D MCV 95.8 MCH 31.2 MCHC 32.6 RDW 18.2 H Plt Count 508 H MPV 9.4 Absolute Neuts (auto) 9.0 H Neutrophils % 78.9 Lymphocytes % 12.4 Monocytes % 7.1 Eosinophils % 0.7 Basophils % 0.9 Nucleated RBC % 0 PT with INR INR PTT (Actin FS) Anticoagulation Therapy No Result Required. Puncture Site No Result Required. Patient Temperature No Result Required. ABG pH 7.467 H ABG pCO2 39.10 ABG pO2 73.5 L ABG HCO3 27.6 H ABG O2 Sat (Measured) 95.6 ABG O2 Content No Result Required. ABG Base Excess 3.7 H Sai Test No Result Required. Patient On Oxygen Yes O2 Delivery Device Nc Oxygen Flow Rate 4l Vent Mode No Result Required. Vent Rate No Result Required. Mechanical Rate No Result Required. PEEP No Result Required. Pressure Support Vent No Result Required. Sodium 137 Potassium 4.0 Chloride 98 Carbon Dioxide 30 Anion Gap 9 BUN 31.6 H Creatinine 2.8 H Est GFR (CKD-EPI)AfAm 18.25 Est GFR (CKD-EPI)NonAf 15.75 POC Glucometer Random Glucose 156 H Calcium 8.0 L Phosphorus 4.6 Magnesium 2.0 Total Bilirubin 0.3 AST 55 H ALT 16 Alkaline Phosphatase 127 H Total Protein 5.4 L Albumin 1.4 L Crossmatch Problem List - Problems (1) ESRD on dialysis Code(s): N18.6 - END STAGE RENAL DISEASE; Z99.2 - DEPENDENCE ON RENAL DIALYSIS (2) Altered mental status Code(s): R41.82 - ALTERED MENTAL STATUS, UNSPECIFIED (3) Diabetes Code(s): E11.9 - TYPE 2 DIABETES MELLITUS WITHOUT COMPLICATIONS (4) Lactic acidosis Code(s): E87.2 - ACIDOSIS (5) Pneumonia, aspiration Code(s): J69.0 - PNEUMONITIS DUE TO INHALATION OF FOOD AND VOMIT Assessment/Plan Acute Respiratory Failure Acute CVA Pneumonia likely Aspiration ESRD on HD HTN DM Hyperlipidemia h/o CVA -Chest PT and positional therapy -ABX coverage -Monitor BMP and electrolytes -HD as per nephrology -VTE prophylaxis and GI proph -Poor overall grave prognosis -Cont goals of care discussion with family -Floor Dr Alonzo
[2020-02-01 12:38] LABS: HEMATOCRIT 22.2 % (32.4-45.2); HEMOGLOBIN 7.2 GM/dL (10.7-15.3); MCH 31.6 pg (25.7-33.7); MCHC 32.4 g/dl (32.0-36.0); MEAN CELL VOLUME 97.5 fl (80-96); MEAN PLT VOLUME 9.2 fl (7.5-11.1); PLATELET COUNT 470 K/MM3 (134-434); RBC 2.28 M/mm3 (3.60-5.2); RDW 18.3 % (11.6-15.6); WHITE BLOOD COUNT 9.6 K/mm3 (4.0-10.0)
--- NOTE | 2020-02-01 12:54 | PN ---
Progress Note (short form) - Note Progress Note: Transfer note Subjective: 74 year old female w/ PMH of CVA, ESRD on HD, HTN, HLD, DM, sacral ulcer admitted who presented to ED from long term for unresponsiveness for 2days. Unresponsive to verbal or painful stimulation. Pt's daughter stated that patient had stroke 3 months ago and had been declining since then. Daughter stated that the patient was awake the day before going to ED, but felt unwell. Daughter states that patient had been awake, responsive, moving extremities, however is bed-bound and aphasic at baseline. Pt is being admitted to the ICU for acute hypoxic respiratory failure. Objective: Last Vital Signs Temp Pulse Resp BP Pulse Ox 97.9 F 118 H 30 H 93/65 94 L 02/01/20 10:02/01/20 13:02/01/20 13:02/01/20 13:02/01/20 10:00 GENERAL: Minimally responsive to sternal rub HEENT: NCAT, pupils constricted and sluggish to light. LUNGS: Decreased lung sounds in the bases, rales at the L bronchus, scattered rhonchi HEART: Tachycardic. S1, S2 without murmur ABDOMEN: Soft, nondistended, bowel sounds present. Peg tube in place and is dry. EXTREMITIES: warm, well-perfused, no edema. SKIN: Warm, dry A/P: 74 year old female w/ PMH of CVA, ESRD on HD, HTN, HLD, DM, sacral ulcer admitted who presented to ED from long term for unresponsiveness for 2days. Unresponsive to verbal or painful stimulation. Pt's daughter stated that patient had stroke 3 months ago and had been declining since then. Daughter stated that the patient was awake the day before going to ED, but felt unwell. Daughter states that patient had been awake, responsive, moving extremities, however is bed-bound and aphasic at baseline. CT head showed subacute infarct with minimal hemorrhagic transformation. Pt on the floors had SpO2 ~70 with increased work of breathing. Thus, rapid response called. Family was notified of pt's condition and rescinded DNR. Pt was intubated 01/26 and admitted to the ICU for acute hypoxic respiratory failure. Pt tolerated CPAP mode and was extubated 01/29. Pt received Peg tube 01/30. Subsequent CXR shows L lung atelectasis w/ L side mediastinal shift, likely from mucus plug. Pt receiving HD today (01/31). GOC discussion ongoing. Pt is currently hemodynamically stable and is optimized for transfer. Neuro CVA history Bihemispheric stroke with minimal responsiveness -Off sedation, minimally responsive at baseline. -assess mental status. -CT head showed moderate size subacute infarct in L frontal lobe. Large R MCA subacute infarct w/ suggestion of interval minimal hemorrhagic transformation s een in R frontal lobe. -Neuro consulted. Recommendations appreciated. -Plavix held for Peg placement. Cardiac PMH HTN PMH HLD -Held home labetolol, valsartan, amlodipine -Monitor and maintain MAP>65 -Monitor and transfuse to keep Hb>8. Today Hb 7.2, will hold off on transfusion and trend H/H. Pulmonary Acute hypoxic respiratory failure Aspiration PNA -CXR on 01/31 - L lung atelectasis w/ L side mediastinal shift, likely mucus plug -ABG pH 7.467, CO2 39, O2 73.5, HcO3 27.6 -Placed on CPAP mode for 20 minutes, tolerated well. Saturated 100%. RSBI 67. Extubated 01/29. On 2L NC. Saturating at 100%. -c/w Acetylcysteine, albuterol -c/w Chest physiotherapy and positional therapy -c/w deep suction of nasal/oropharynx GI s/p PEG placement -to be sent to IR for KUB to determine if peg tube can be used Renal ESRD on HD -Cr 2.8 -Nephro consulted. Continue current management. HD today 01/31. ID Aspiration PNA Sacral ulcer -Discontinue Zosyn (on zosyn since 01/14) -Afebrile -Continue application Collegenase (Santyl) -ID consulted. Recommended discontinue zosyn and reculture off for current temperature and increased WBC. -COVID negative Endocrine Diabetes mellitus Hypokalemia, resolved -ISS +BGM FEN -D5/LR @ 42, NS -follow electrolytes and replete as needed -Feeds held (nepro) due to aspiration risk Px -DVT: SCD b/l -GI: PPI LTD -NGT 01/26 Family discussion/code status: Goals of care discussion ongoing. Palliative care saw pt, discussed GOC with family. FULL CODE. Dispo: Medically optimized for transfer.
[2020-02-01] MEDS: DEXTROSE 5%-LACTATED RINGERS 1,000 ML IV SCH ×2 (17:14→18:14)
[2020-02-01] MEDS: PANTOPRAZOLE SODIUM 40 MG VIAL IVPUSH SCH (18:15)
[2020-02-01] MEDS ORDERED: PT OWN MED DRAWER 7, Y5N ONE (20:21)
[2020-02-01] MEDS: CHLORHEXIDINE GLUCONATE 4% CLEANSER FOR DECOLONIZATION TP SCH (22:45)
[2020-02-02] MEDS: INSULIN SLIDING SCALE (NOVOLOG) 1 VIAL SQ SCH ×4 (07:19→23:03)
--- NOTE | 2020-02-02 07:50 | PN ---
Physical Exam: SUBJECTIVE: Patient seen and examined. Remains extubated. Pt is still minimally responsive. No acute events overnight. OBJECTIVE: Vital Signs Period Temp Pulse Resp BP Sys/Ramirez Pulse Ox Last 24 Hr 97.3 F-98.8 F 101-118 15-30 85-123/55-75 94-100 GENERAL: Minimally responsive HEENT: NCAT, pupils less constricted today. Sluggish to light. LUNGS: Decreased lung sounds in the bases, rales at the L bronchus, scattered rhonchi HEART: Tachycardic. S1, S2 without murmur ABDOMEN: Soft, nondistended, bowel sounds present. Peg tube in place and is dry. EXTREMITIES: warm, well-perfused, 2+ pitting edema in b/l lower and upper extremity. SKIN: Warm, dry Laboratory Last Values WBC 8.5 K/mm3 (4.0-10.0) 02/02/20 09:00 RBC 1.99 M/mm3 (3.60-5.2) L 02/02/20 09:00 Hgb 6.4 GM/dL (10.7-15.3) L* 02/02/20 09:00 Hct 19.2 % (32.4-45.2) L 02/02/20 09:00 MCV 96.8 fl (80-96) H 02/02/20 09:00 MCH 32.0 pg (25.7-33.7) 02/02/20 09:00 MCHC 33.0 g/dl (32.0-36.0) 02/02/20 09:00 RDW 18.4 % (11.6-15.6) H 02/02/20 09:00 Plt Count 435 K/MM3 (134-434) H 02/02/20 09:00 MPV 8.7 fl (7.5-11.1) 02/02/20 09:00 Absolute Neuts (auto) 7.5 K/mm3 (1.5-8.0) 02/02/20 09:00 Total Counted 100 01/15/20 08:40 Neutrophils % 88.2 % (42.8-82.8) H 02/02/20 09:00 Neutrophils % (Manual) 79.0 % (42.8-82.8) 01/15/20 08:40 Band Neutrophils % 2.0 % 01/15/20 08:40 Lymphocytes % 4.9 % (8-40) L D 02/02/20 09:00 Lymphocytes % (Manual) 13.0 % (8-40) 01/15/20 08:40 Monocytes % 6.3 % (3.8-10.2) 02/02/20 09:00 Monocytes % (Manual) 4 % (3.8-10.2) 01/15/20 08:40 Eosinophils % 0.3 % (0-4.5) 02/02/20 09:00 Eosinophils % (Manual) 0.0 % (0-4.5) 01/15/20 08:40 Basophils % 0.3 % (0-2.0) 02/02/20 09:00 Basophils % (Manual) 1.0 % (0-2.0) 01/15/20 08:40 Nucleated RBC % 0 % (0-0) 02/02/20 09:00 Metamyelocytes 1 % (0-2) 01/15/20 08:40 Hypochromia 0 01/18/20 06:10 Platelet Estimate Increased 01/31/20 06:10 Platelet Comment No clumping noted 01/15/20 08:40 Platelet Comment Large platelets 01/15/20 08:40 Polychromasia 1+ 01/18/20 06:10 Poikilocytosis 1+ 01/18/20 06:10 Anisocytosis 1+ 01/18/20 06:10 Microcytosis 1+ 01/18/20 06:10 Macrocytosis 0 01/18/20 06:10 Bypro Cells 1+ 01/18/20 06:10 PT with INR 12.50 SEC (9.7-13.0) 01/31/20 18:50 INR 1.06 (0.83-1.09) 01/31/20 18:50 PTT (Actin FS) 29.0 SECONDS (25.2-36.5) 01/31/20 18:50 Anticoagulation Therapy No Result Required. 02/01/20 06:48 Puncture Site No Result Required. 02/01/20 06:48 Patient Temperature No Result Required. 02/01/20 06:48 ABG pH 7.467 (7.350-7.450) H 02/01/20 06:48 ABG pCO2 39.10 mmHg (35-45) 02/01/20 06:48 ABG pO2 73.5 mmHg (80-100) L 02/01/20 06:48 ABG HCO3 27.6 mmol/L (22-27) H 02/01/20 06:48 ABG O2 Sat (Measured) 95.6 mmHg (95-98) 02/01/20 06:48 ABG O2 Content No Result Required. 02/01/20 06:48 ABG Base Excess 3.7 mmol/L (-2-2) H 02/01/20 06:48 Sai Test No Result Required. 02/01/20 06:48 VBG pH 7.309 (7.310-7.410) L 01/14/20 20:30 POC VBG pCO2 50.0 mmHg (38-52) 01/14/20 20:30 POC VBG pO2 68.5 mmHg (28-48) H 01/14/20 20:30 VBG HCO3 24.6 mmol/L (23-29) 01/14/20 20:30 VBG O2 Sat (Rayray) 91.9 % (70-80) H 01/14/20 20:30 VBG Base Excess -2.2 mmol/L (-2-2) L 01/14/20 20:30 Patient On Oxygen Yes 02/01/20 06:48 O2 Delivery Device Nc 02/01/20 06:48 Oxygen Flow Rate 4l 02/01/20 06:48 Vent Mode No Result Required. 02/01/20 06:48 Vent Rate No Result Required. 02/01/20 06:48 Mechanical Rate No Result Required. 02/01/20 06:48 PEEP No Result Required. 02/01/20 06:48 Pressure Support Vent No Result Required. 02/01/20 06:48 Sodium 142 mmol/L (136-145) 02/02/20 09:00 Potassium 3.0 mmol/L (3.5-5.1) L 02/02/20 09:00 Chloride 102 mmol/L (98-107) 02/02/20 09:00 Carbon Dioxide 30 mmol/L (21-32) 02/02/20 09:00 Anion Gap 10 MMOL/L (8-16) 02/02/20 09:00 BUN 19.5 mg/dL (7-18) H 02/02/20 09:00 Creatinine 2.1 mg/dL (0.55-1.3) H 02/02/20 09:00 Est GFR (CKD-EPI)AfAm 25.84 02/02/20 09:00 Est GFR (CKD-EPI)NonAf 22.30 02/02/20 09:00 POC Glucometer 81 UNITS (80-120) 02/02/20 11:00 Random Glucose 156 mg/dL (74-106) H 02/02/20 09:00 Lactic Acid 1.9 mmol/L (0.4-2.0) 01/26/20 23:40 Calcium 7.7 mg/dL (8.5-10.1) L 02/02/20 09:00 Phosphorus 2.8 mg/dL (2.5-4.9) 02/02/20 09:00 Magnesium 1.9 mg/dL (1.8-2.4) 02/02/20 09:00 Total Bilirubin 0.3 mg/dL (0.2-1) 02/02/20 09:00 Direct Bilirubin 0.1 mg/dL (0.0-0.2) 01/28/20 05:40 AST 44 U/L (15-37) H 02/02/20 09:00 ALT 15 U/L (13-61) 02/02/20 09:00 Alkaline Phosphatase 117 U/L (45-117) 02/02/20 09:00 Troponin I 0.32 ng/ml (0.00-0.05) H 01/27/20 05:00 Total Protein 5.3 g/dl (6.4-8.2) L 02/02/20 09:00 Albumin 1.4 g/dl (3.4-5.0) L 02/02/20 09:00 Beta-Hydroxybutyrate 8.7 mg/dL (0.2-2.8) H 01/15/20 08:40 TSH 1.32 uIU/ml (0.358-3.74) 01/14/20 20:10 COVID-19 ([facility]) Not detected (Not Detected) 01/15/20 00:30 Hep Bs Antigen Negative (Negative) 01/15/20 14:50 Hep C Ab Diagnostic 0.1 s/co ratio (0.0-0.9) 01/15/20 14:50 Blood Type O POSITIVE 02/01/20 11:10 Antibody Screen Negative 02/01/20 11:10 Crossmatch See Detail 02/01/20 11:10 Active Medications Albuterol Sulfate (Ventolin 0.083% Nebulizer Soln -) 1 amp NEB Q4H PRN PRN Reason: SHORT OF BREATH/WHEEZING Last Admin: 02/01/20 20:51 Dose: 1 amp Documented by: Chlorhexidine Gluconate (Hibiclens For Decolonization -) 1 applic TP HS JOSE Last Admin: 02/01/20 22:45 Dose: 1 applic Documented by: Collagenase (Santyl -) 1 applic TP DAILY JOSE; Protocol Last Admin: 02/02/20 09:33 Dose: 1 applic Documented by: Insulin Aspart (Novolog Vial Sliding Scale -) 1 vial SQ ACHS JOSE; Protocol Last Admin: 02/02/20 07:19 Dose: Not Given Documented by: Pantoprazole Sodium (Protonix Iv) 40 mg IVPUSH DAILY JOSE Last Admin: 02/02/20 09:33 Dose: 40 mg Documented by: ASSESSMENT/PLAN: ASSESSMENT/PLAN: 74 year old female w/ PMH of CVA, ESRD on HD, HTN, HLD, DM, sacral ulcer admitted to ICU for acute hypoxic respiratory failure. Pt was on 4S with SpO2 ~70 with increased work of breathing. Thus, rapid response called. Family was notified of pt's condition and rescinded DNR. Received HD 01/29. Pt tolerated CPAP mode for 20 minutes. RSBI was 67. Extubated 01/29. GOC discussion ongoing. Pt received Peg tube 01/30. Overnight, pt had bleeding at the Peg tube site, despite compression for 15 minutes and surgiceal. 2 additional stitches and surgiceal were placed. Bleeding stopped. Pt is hemodynamically stable. No acute overnight events. Pt is to go to IR to test usability of peg tube. Neuro CVA history Bihemispheric stroke with minimal responsiveness -Off sedation, minimally responsive at baseline. -assess mental status. -CT head showed moderate size subacute infarct in L frontal lobe. Large R MCA subacute infarct w/ suggestion of interval minimal hemorrhagic transformation seen in R frontal lobe. -Neuro consulted. Recommendations appreciated. -Plavix held for Peg placement. Cardiac PMH HTN PMH HLD -Held home labetolol, valsartan, amlodipine, given soft bp. -Held lipitor, given transaminitis -Monitor and maintain MAP>65 -Monitor and transfuse to keep Hb>8 -Hb today 6.4, will transfuse 1 uPRB Pulmonary Acute hypoxic respiratory failure Aspiration PNA -CXR on 02/01 - L lung atelectasis w/ L side mediastinal shift -Placed on CPAP mode for 20 minutes, tolerated well. Saturated 100%. RSBI 67. Extubated 01/29. On 2L NC. Saturating at 100%. -c/w albuterol -c/w Chest physiotherapy and positional therapy -c/w suction of nasal/oropharynx -Spoke to respiratory in regards to curved suction to reach mucus plug in L bronchus, however, respiratory therapist and plastics fabrication supervisor stated there is no "closed-loop" suction to use for this pt and that the curved suction is only compatible to pt's on a ventilator. GI s/p PEG placement Transaminitis -to be sent to IR for KUB to determine if peg tube can be used -2 sutures placed on each side of peg tube on 01/30. Must be removed in 5 days. Renal Hypokalemia ESRD on HD -Nephro consulted. Continue current management. Last HD was 01/31. Will dialyze again 02/03. -repleted potassium -No daily labs. Labs to be drawn during dialysis. ID Aspiration PNA Sacral ulcer -Discontinued Zosyn (on zosyn since 01/14) -Continue application Collegenase (Santyl) -ID consulted. Recommended discontinue zosyn and reculture off for current temperature and increased WBC. -COVID negative Endocrine Diabetes mellitus Hypokalemia, resolved -ISS +BGM FEN -d/c fluids -follow electrolytes and replete as needed -Feeds at 35 (nepro) as per dietary Px -DVT: SCD b/l -GI: PPI LTD -NGT 01/26 Family discussion/code status: Goals of care discussion ongoing. Palliative care saw pt, discussed GOC with family. FULL CODE. Dispo: Medically optimized for transfer. Visit type - Emergency Visit Emergency Visit: Yes ED Registration Date: 01/15/20 Care time: The patient presented to the Emergency Department on the above date and was hospitalized for further evaluation of their emergent condition. - New Patient This patient is new to me today: No - Critical Care Critical Care patient: Yes Total Critical Care Time (in minutes): 38 Critical Care Statement: The care of this patient involved high complexity decision making to prevent further life threatening deterioration of the patient's condition and/or to evaluate & treat vital organ system(s) failure or risk of failure. - Medication Review Med list reviewed for High Risk Meds patients 65 and older: Yes ATTENDING PHYSICIAN STATEMENT I saw and evaluated the patient. I reviewed the resident's note and discussed the case with the resident. I agree with the resident's findings and plan as documented. SUBJECTIVE: OBJECTIVE: ASSESSMENT AND PLAN:
[2020-02-02] MEDS: PANTOPRAZOLE SODIUM 40 MG VIAL IVPUSH SCH (09:33)
[2020-02-02] MEDS: COLLAGENASE CLOSTRIDIUM HIST. 30 GRAMS TUBE TP SCH (09:33)
[2020-02-02 09:45] LABS: BASO % 0.3 % (0-2.0); EOS % 0.3 % (0-4.5); HEMATOCRIT 19.2 % (32.4-45.2); LYMPH % 4.9 % (8-40); MEAN CELL VOLUME 96.8 fl (80-96); MEAN PLT VOLUME 8.7 fl (7.5-11.1); MONO % 6.3 % (3.8-10.2); NEUT % 88.2 % (42.8-82.8); PLATELET COUNT 435 K/MM3 (134-434); RBC 1.99 M/mm3 (3.60-5.2); RDW 18.4 % (11.6-15.6); WHITE BLOOD COUNT 8.5 K/mm3 (4.0-10.0)
[2020-02-02 10:01] LABS: HEMOGLOBIN 6.4 GM/dL (10.7-15.3)
[2020-02-02 10:10] LABS: ALBUMIN 1.4 g/dl (3.4-5.0); BILIRUBIN,TOTAL 0.3 mg/dL (0.2-1); BLOOD UREA NITROGEN 19.5 mg/dL (7-18); CALCIUM 7.7 mg/dL (8.5-10.1); CREATININE 2.1 mg/dL (0.55-1.3); MAGNESIUM 1.9 mg/dL (1.8-2.4); PHOSPHOROUS 2.8 mg/dL (2.5-4.9); TOT PROT 5.3 g/dl (6.4-8.2)
--- NOTE | 2020-02-02 10:15 | PN ---
Progress Note (short form) - Note Progress Note: Palliative care f/up 74yo F admitted [facility] for unresponsiveness x2days. Unresponsive to verbal or painful stimulation. Patient had stroke 3 months ago and has been declining since then. At baseline patient was awake, responsive, moving extremities, however was bedbound and aphasic. Patient suspected to have aspiration pneumonia. Patient with large right mca cerebral edema. patient was intubated on 01/25 as family cancelled dnr . patient remain intubated, minimal response to pain. Acute CVA Pneumonia likely Aspiration ESRD on HD HTN DM Hyperlipidemia h/o CVA ac respiratory failure, intubated, on 30% Fio2, sedated ct shows minimal hemorrhagic conversion. Prognosis poor. extubated- on 6 L N.C o2 s/p PEG unresponsive off sedation Patient with multiorgan failure, mechanically ventilated, unresponsive, dysphagia, aspiration risk Placement of PEG will not prevent aspiration and patient remains at high risk of recurrent aspiration pneumonitis along with risk of pressure sores, uti due to bedbound status. CPR would be medically futile in this patient. Chances of meaningful recovery are slim. I have had detailed discussions with pt's daughter Kelsey. We discussed Sharona's bihemispheric stroke, unresponsiveness, respiratory failure. We also discussed risk of recurrent aspiration, poor quality of life - even if she were to recover from this episode it is unlikely she will be able to walk/ talk or eat for herself. We discussed DNR. She has been extubated. she remains a full code as per family's wishes for now. Will sign off for now. Please reconsult prn. Problem List - Problems (1) Altered mental status Code(s): R41.82 - ALTERED MENTAL STATUS, UNSPECIFIED (2) Pneumonia, aspiration Code(s): J69.0 - PNEUMONITIS DUE TO INHALATION OF FOOD AND VOMIT (3) Stroke Code(s): I63.9 - CEREBRAL INFARCTION, UNSPECIFIED (4) ESRD on dialysis Code(s): N18.6 - END STAGE RENAL DISEASE; Z99.2 - DEPENDENCE ON RENAL DIALYSIS
--- NOTE | 2020-02-02 10:57 | PN ---
Progress Note, Physician History of Present Illness: pt seen/ examined in icu chart is reviewed Extubated Unresponsive - Current Medication List Current Medications: Active Medications Albuterol Sulfate (Ventolin 0.083% Nebulizer Soln -) 1 amp NEB Q4H PRN PRN Reason: SHORT OF BREATH/WHEEZING Last Admin: 02/01/20 20:51 Dose: 1 amp Documented by: Chlorhexidine Gluconate (Hibiclens For Decolonization -) 1 applic TP HS JOSE Last Admin: 02/01/20 22:45 Dose: 1 applic Documented by: Collagenase (Santyl -) 1 applic TP DAILY JOSE; Protocol Last Admin: 02/02/20 09:33 Dose: 1 applic Documented by: Insulin Aspart (Novolog Vial Sliding Scale -) 1 vial SQ ACHS [facility]; Protocol Last Admin: 02/02/20 07:19 Dose: Not Given Documented by: Pantoprazole Sodium (Protonix Iv) 40 mg IVPUSH DAILY [facility] Last Admin: 02/02/20 09:33 Dose: 40 mg Documented by: - Objective Vital Signs: Vital Signs Temperature 98.6 F 02/02/20 08:00 Pulse Rate 118 H 02/02/20 08:00 Respiratory Rate 18 02/02/20 09:00 Blood Pressure 125/73 02/02/20 08:00 O2 Sat by Pulse Oximetry (%) 98 02/02/20 09:00 Constitutional: Yes: Other (unresponsive) Neck: Yes: Supple Cardiovascular: Yes: Regular Rate and Rhythm Respiratory: Yes: Diminished Gastrointestinal: Yes: Soft Labs: CBC, BMP 02/02/20 09:00 02/02/20 09:00 INR, PTT INR 1.06 (0.83-1.09) 01/31/20 18:50 Problem List - Problems (1) Stroke Code(s): I63.9 - CEREBRAL INFARCTION, UNSPECIFIED (2) Pneumonia, aspiration Code(s): J69.0 - PNEUMONITIS DUE TO INHALATION OF FOOD AND VOMIT (3) Diabetes Code(s): E11.9 - TYPE 2 DIABETES MELLITUS WITHOUT COMPLICATIONS (4) ESRD on dialysis Code(s): N18.6 - END STAGE RENAL DISEASE; Z99.2 - DEPENDENCE ON RENAL DIALYSIS Assessment/Plan A/P Acute right temporoparietal infarct -- Large MCA aspiration pneumonia ESRD -HD Respiratory failure Continue prsent care Overall condition poor Resuscitation will be futile Family wants everything to be done Palliative team following Same treatment for now Prognosis poor will continue to follow
--- NOTE | 2020-02-02 11:55 | PN ---
Teaching Attending Note Name of Resident: Kiley Devi ATTENDING PHYSICIAN STATEMENT I saw and evaluated the patient. I reviewed the resident's note and discussed the case with the resident. I agree with the resident's findings and plan as documented. SUBJECTIVE: Patient seen and examined in the ICU. Remains extubated. Remains poorly responsive. CXR: Left opacification with slight mediastinal shift consistent with atelectasis. Intake & Output 01/30/20 01/31/20 02/01/20 02/02/20 23:59 23:59 23:59 23:59 Intake Total 2170 1121 504 Output Total 900 0 878 Balance 1270 0 243 504 Last Vital Signs Temp Pulse Resp BP Pulse Ox 98.6 F 118 H 18 125/73 98 02/02/20 08:00 02/02/20 08:00 02/02/20 09:00 02/02/20 08:00 02/02/20 09:00 Active Medications Albuterol Sulfate (Ventolin 0.083% Nebulizer Soln -) 1 amp NEB Q4H PRN PRN Reason: SHORT OF BREATH/WHEEZING Last Admin: 02/01/20 20:51 Dose: 1 amp Documented by: Chlorhexidine Gluconate (Hibiclens For Decolonization -) 1 applic TP HS JOSE Last Admin: 02/01/20 22:45 Dose: 1 applic Documented by: Collagenase (Santyl -) 1 applic TP DAILY JOSE; Protocol Last Admin: 02/02/20 09:33 Dose: 1 applic Documented by: Insulin Aspart (Novolog Vial Sliding Scale -) 1 vial SQ ACHS JOSE; Protocol Last Admin: 02/02/20 11:34 Dose: Not Given Documented by: Pantoprazole Sodium (Protonix Iv) 40 mg IVPUSH DAILY JOSE Last Admin: 02/02/20 09:33 Dose: 40 mg Documented by: Gen: Extubated, poorly responsive off sedation, breathing non-labored Lungs: Diminished on the left, few scattered rhonchi CV: S1S2 Ext: (+) 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 SPECIALIST: poorly responsive to noxious stimuli Laboratory Results - last 24 hr 01/31/20 02/01/20 02/01/20 06:15 11:10 11:10 WBC 9.6 RBC 2.28 L Hgb 7.2 L Hct 22.2 L MCV 97.5 H MCH 31.6 MCHC 32.4 RDW 18.3 H Plt Count 470 H MPV 9.2 Absolute Neuts (auto) Neutrophils % Lymphocytes % Monocytes % Eosinophils % Basophils % Nucleated RBC % Sodium Potassium Chloride Carbon Dioxide Anion Gap BUN Creatinine Est GFR (CKD-EPI)AfAm Est GFR (CKD-EPI)NonAf POC Glucometer Random Glucose Calcium Phosphorus Magnesium Total Bilirubin AST ALT Alkaline Phosphatase Total Protein Albumin Blood Type Cancelled O POSITIVE Antibody Screen Cancelled Negative Crossmatch See Detail See Detail 02/01/20 02/01/20 02/01/20 12:29 16:54 22:40 WBC RBC Hgb Hct MCV MCH MCHC RDW Plt Count MPV Absolute Neuts (auto) Neutrophils % Lymphocytes % Monocytes % Eosinophils % Basophils % Nucleated RBC % Sodium Potassium Chloride Carbon Dioxide Anion Gap BUN Creatinine Est GFR (CKD-EPI)AfAm Est GFR (CKD-EPI)NonAf POC Glucometer 202 137 105 Random Glucose Calcium Phosphorus Magnesium Total Bilirubin AST ALT Alkaline Phosphatase Total Protein Albumin Blood Type Antibody Screen Crossmatch 02/02/20 02/02/20 02/02/20 06:36 09:00 09:00 WBC 8.5 RBC 1.99 L Hgb 6.4 L* Hct 19.2 L MCV 96.8 H MCH 32.0 MCHC 33.0 RDW 18.4 H Plt Count 435 H MPV 8.7 Absolute Neuts (auto) 7.5 Neutrophils % 88.2 H Lymphocytes % 4.9 L D Monocytes % 6.3 Eosinophils % 0.3 Basophils % 0.3 Nucleated RBC % 0 Sodium 142 Potassium 3.0 L Chloride 102 Carbon Dioxide 30 Anion Gap 10 BUN 19.5 H Creatinine 2.1 H Est GFR (CKD-EPI)AfAm 25.84 Est GFR (CKD-EPI)NonAf 22.30 POC Glucometer 116 Random Glucose 156 H Calcium 7.7 L Phosphorus 2.8 Magnesium 1.9 Total Bilirubin 0.3 AST 44 H ALT 15 Alkaline Phosphatase 117 Total Protein 5.3 L Albumin 1.4 L Blood Type Antibody Screen Crossmatch 02/02/20 11:00 WBC RBC Hgb Hct MCV MCH MCHC RDW Plt Count MPV Absolute Neuts (auto) Neutrophils % Lymphocytes % Monocytes % Eosinophils % Basophils % Nucleated RBC % Sodium Potassium Chloride Carbon Dioxide Anion Gap BUN Creatinine Est GFR (CKD-EPI)AfAm Est GFR (CKD-EPI)NonAf POC Glucometer 81 Random Glucose Calcium Phosphorus Magnesium Total Bilirubin AST ALT Alkaline Phosphatase Total Protein Albumin Blood Type Antibody Screen Crossmatch Problem List - Problems (1) ESRD on dialysis Code(s): N18.6 - END STAGE RENAL DISEASE; Z99.2 - DEPENDENCE ON RENAL DIALYSIS (2) Altered mental status Code(s): R41.82 - ALTERED MENTAL STATUS, UNSPECIFIED (3) Diabetes Code(s): E11.9 - TYPE 2 DIABETES MELLITUS WITHOUT COMPLICATIONS (4) Lactic acidosis Code(s): E87.2 - ACIDOSIS (5) Pneumonia, aspiration Code(s): J69.0 - PNEUMONITIS DUE TO INHALATION OF FOOD AND VOMIT Assessment/Plan Acute Respiratory Failure Acute CVA Pneumonia likely Aspiration ESRD on HD HTN DM Hyperlipidemia h/o CVA -Chest PT and positional therapy -ABX coverage -Monitor BMP and electrolytes -HD as per nephrology -VTE prophylaxis and GI proph -Poor overall prognosis -Cont goals of care discussion with family -Floor Dr Alonzo
--- NOTE | 2020-02-02 13:49 | PN ---
Progress Note (short form) - Note Progress Note: RENAL In ICU extubated required intubation over weekend she is unresponsive Last Vital Signs Temp Pulse Resp BP Pulse Ox 98.6 F 112 H 18 118/63 98 02/02/20 08:00 02/02/20 12:00 02/02/20 12:00 02/02/20 12:00 02/02/20 12:00 lungs clear cvs s1s2 rr abd soft ext upper ext edema neuro unresponsive CBC, BMP 02/02/20 09:00 02/02/20 09:00 Current Medications Current Medications Generic Name Dose Route Start Last Admin Trade Name Freq PRN Reason Stop Dose Admin Albuterol Sulfate 1 amp 02/01/20 04:30 02/01/20 20:51 Ventolin 0.083% Nebulizer Soln - NEB 1 amp Q4H PRN Administration SHORT OF BREATH/WHEEZING Chlorhexidine Gluconate 1 applic 01/26/20 22:00 02/01/20 22:45 Hibiclens For Decolonization - TP 1 applic HS JOSE Administration Collagenase 1 applic 01/27/20 10:00 02/02/20 09:33 Santyl - TP 1 applic DAILY JOSE Administration Protocol Insulin Aspart 1 vial 01/28/20 07:00 02/02/20 11:34 Novolog Vial Sliding Scale - SQ Not Given ACHS JOSE Protocol Pantoprazole Sodium 40 mg 02/01/20 17:15 02/02/20 09:33 Protonix Iv IVPUSH 40 mg DAILY JOSE Administration IMPRESSION esrd htn s/p cva x 2- unresponsive hypokalemia resolved covid 19 neg hypernatremia resolved PLAN continue transfusion will dialyze again tomorrow prognosis is very poor and should consider withdrawal of HD MV
[2020-02-02] MEDS: KCL 10 MEQ IVPB 10 MEQ/100 ML INFUS.BAG IVPB SCH (14:18)
[2020-02-02 18:12] LABS: HEMATOCRIT 15.8 % (32.4-45.2); MCH 31.7 pg (25.7-33.7); MCHC 32.5 g/dl (32.0-36.0); MEAN CELL VOLUME 97.6 fl (80-96); MEAN PLT VOLUME 8.4 fl (7.5-11.1); PLATELET COUNT 477 K/MM3 (134-434); RBC 1.62 M/mm3 (3.60-5.2); RDW 18.2 % (11.6-15.6); WHITE BLOOD COUNT 8.9 K/mm3 (4.0-10.0)
--- NOTE | 2020-02-02 18:26 | PROC ---
Procedure Note Procedure: Pt had multiple peripheral lines infiltrate, noted subcutaneous air on CT in arms. Contrast extravsated after US guided line placed (good blood return noted after placement) likely vein ruptured. Due to extravasation of contrast, arm elevated, warm compresses placed and ordered to continue warm compresses and elevate arm with frequent checks of the arm. Pt hemoglobin reported 5.1, blood pulled from CL. Possibly dilution. Repeat CBC sent prior to another unit of PRBC reported 6.4. Discussed case with Dr. Lopez, requests GI consult and states add on tests such including LDH, haptoglobin, D-dimer, fibrinogen, pt/INR, PTT with new cultures to rule out hemolysis, DIC, infection. Stool occult sent 40 CC sterile water placed into PED tube, no blood when 40 CC aspirated Central Line Insertion Indication: Poor Venous Access ( ) Risks and Benefits Explained: Yes (HCP called and consents by ifeoma) Central Line: Triple Lumen Catheter Anesthesia: 1% Lidocaine Sterile Technique: Yes Ultrasound Guided Assistance: Yes Position: Left Internal Jugular Post Insertion: Yes: Bilateral Breath Sounds, Bilateral Chest Expansion, Chest X-Ray Ordered Sterile Dressing Applied: Yes
[2020-02-02 18:28] LABS: HEMOGLOBIN 5.1 GM/dL (10.7-15.3)
[2020-02-02] MEDS ORDERED: ALBUTEROL SO4 0.083% IH SOL 2.5 MG/3 ML VIAL.NEB. NEB PRN (18:48)
[2020-02-02 19:15] LABS: MCH 31.2 pg (25.7-33.7); MEAN CELL VOLUME 97.5 fl (80-96); MEAN PLT VOLUME 8.6 fl (7.5-11.1); PLATELET COUNT 464 K/MM3 (134-434); RBC 2.05 M/mm3 (3.60-5.2); RDW 18.2 % (11.6-15.6); WHITE BLOOD COUNT 9.2 K/mm3 (4.0-10.0)
[2020-02-02 19:18] LABS: HEMOGLOBIN 6.4 GM/dL (10.7-15.3)
[2020-02-02 20:56] LABS: INR 1.56 (0.83-1.09); PROTHROMBIN TIME (PATIENT) 18.5 SEC (9.7-13.0)
[2020-02-02 20:59] LABS: ACTIVATED PTT 39.3 SECONDS (25.2-36.5)
[2020-02-02] MEDS ORDERED: CHLORHEXIDINE GLUCONATE 4% CLEANSER FOR DECOLONIZATION TP SCH (22:00)
[2020-02-02] MEDS ORDERED: DEXTROSE 50%-WATER - 25 GM/50 ML VIAL IVPUSH ONE (23:04)
[2020-02-02] MEDS ORDERED: DEXTROSE 50%-WATER 25 GM/50 ML DISP.SYRIN ONE (23:12)
[2020-02-03] MEDS ORDERED: DEXTROSE 50%-WATER - 25 GM/50 ML VIAL IVPUSH PRN ×3 (01:05→11:25)
[2020-02-03] MEDS ORDERED: DEXTROSE 50%-WATER - 25 GM/50 ML VIAL IVPUSH ONE (01:05)
[2020-02-03] MEDS ORDERED: DEXTROSE 5%-LACTATED RINGERS 1,000 ML IV SCH (01:15)
[2020-02-03] MEDS: KCL 10 MEQ IVPB 10 MEQ/100 ML INFUS.BAG IVPB SCH ×2 (03:08→05:09)
[2020-02-03 03:31] LABS: HEMATOCRIT 22.8 % (32.4-45.2); HEMOGLOBIN 7.7 GM/dL (10.7-15.3); MCH 30.7 pg (25.7-33.7); MCHC 33.5 g/dl (32.0-36.0); MEAN CELL VOLUME 91.6 fl (80-96); MEAN PLT VOLUME 8.3 fl (7.5-11.1); PLATELET COUNT 383 K/MM3 (134-434); RBC 2.49 M/mm3 (3.60-5.2); RDW 19.1 % (11.6-15.6); WHITE BLOOD COUNT 10.3 K/mm3 (4.0-10.0)
[2020-02-03] MEDS: INSULIN SLIDING SCALE (NOVOLOG) 1 VIAL SQ SCH ×4 (06:00→18:01)
--- NOTE | 2020-02-03 08:52 | PN ---
Physical Exam: SUBJECTIVE: Patient seen and examined. Pt is minimally responsive at baseline. Pt remains extubated, currently on NC. Overnight, central line placed due to poor venous access. CT abd done due to investigation of dropping H/H, however, resulted in extravasation of contrast of L arm. Elevated coags debbie concern for DIC, thus heme/onc and GI consult placed. Elevated Given BG 41, 1 amp D5 given. OBJECTIVE: Vital Signs Period Temp Pulse Resp BP Sys/Ramirez Pulse Ox Last 24 Hr 98 F-99.4 F 110-120 18-24 118-138/55-75 94-100 GENERAL: Minimal response to sternal rub. HEENT: NCAT, pupils constricted and sluggish to light. LUNGS: Decreased lung sounds in the bases, worsening scattered rhonchi b/l. HEART: Tachycardic. S1, S2 without murmur. ABDOMEN: Soft, nondistended, bowel sounds present. Peg tube in place and is dry. EXTREMITIES: warm, well-perfused, 2+ pitting edema in b/l lower and upper extr emity. SKIN: Warm, dry Laboratory Last Values WBC 10.3 K/mm3 (4.0-10.0) H 02/03/20 03:15 RBC 2.49 M/mm3 (3.60-5.2) L 02/03/20 03:15 Hgb 7.7 GM/dL (10.7-15.3) L 02/03/20 03:15 Hct 22.8 % (32.4-45.2) L 02/03/20 03:15 MCV 91.6 fl (80-96) 02/03/20 03:15 MCH 30.7 pg (25.7-33.7) 02/03/20 03:15 MCHC 33.5 g/dl (32.0-36.0) 02/03/20 03:15 RDW 19.1 % (11.6-15.6) H 02/03/20 03:15 Plt Count 383 K/MM3 (134-434) 02/03/20 03:15 MPV 8.3 fl (7.5-11.1) 02/03/20 03:15 Absolute Neuts (auto) 7.5 K/mm3 (1.5-8.0) 02/02/20 09:00 Total Counted 100 01/15/20 08:40 Neutrophils % 88.2 % (42.8-82.8) H 02/02/20 09:00 Neutrophils % (Manual) 79.0 % (42.8-82.8) 01/15/20 08:40 Band Neutrophils % 2.0 % 01/15/20 08:40 Lymphocytes % 4.9 % (8-40) L D 02/02/20 09:00 Lymphocytes % (Manual) 13.0 % (8-40) 01/15/20 08:40 Monocytes % 6.3 % (3.8-10.2) 02/02/20 09:00 Monocytes % (Manual) 4 % (3.8-10.2) 01/15/20 08:40 Eosinophils % 0.3 % (0-4.5) 02/02/20 09:00 Eosinophils % (Manual) 0.0 % (0-4.5) 01/15/20 08:40 Basophils % 0.3 % (0-2.0) 02/02/20 09:00 Basophils % (Manual) 1.0 % (0-2.0) 01/15/20 08:40 Nucleated RBC % 0 % (0-0) 02/02/20 09:00 Metamyelocytes 1 % (0-2) 01/15/20 08:40 Hypochromia 0 01/18/20 06:10 Platelet Estimate Increased 01/31/20 06:10 Platelet Comment No clumping noted 01/15/20 08:40 Platelet Comment Large platelets 01/15/20 08:40 Polychromasia 1+ 01/18/20 06:10 Poikilocytosis 1+ 01/18/20 06:10 Anisocytosis 1+ 01/18/20 06:10 Microcytosis 1+ 01/18/20 06:10 Macrocytosis 0 01/18/20 06:10 [place] Cells 1+ 01/18/20 06:10 PT with INR 18.50 SEC (9.7-13.0) H 02/02/20 20:30 INR 1.56 (0.83-1.09) H 02/02/20 20:30 PTT (Actin FS) 39.3 SECONDS (25.2-36.5) H 02/02/20 20:30 Fibrinogen > 500.0 mg/dL (238-498) H 02/02/20 20:30 D-Dimer 1385 ng/ml (0-500) H 02/02/20 20:30 Anticoagulation Therapy No Result Required. 02/01/20 06:48 Puncture Site No Result Required. 02/01/20 06:48 Patient Temperature No Result Required. 02/01/20 06:48 ABG pH 7.467 (7.350-7.450) H 02/01/20 06:48 ABG pCO2 39.10 mmHg (35-45) 02/01/20 06:48 ABG pO2 73.5 mmHg (80-100) L 02/01/20 06:48 ABG HCO3 27.6 mmol/L (22-27) H 02/01/20 06:48 ABG O2 Sat (Measured) 95.6 mmHg (95-98) 02/01/20 06:48 ABG O2 Content No Result Required. 02/01/20 06:48 ABG Base Excess 3.7 mmol/L (-2-2) H 02/01/20 06:48 Sai Test No Result Required. 02/01/20 06:48 VBG pH 7.309 (7.310-7.410) L 01/14/20 20:30 POC VBG pCO2 50.0 mmHg (38-52) 01/14/20 20:30 POC VBG pO2 68.5 mmHg (28-48) H 01/14/20 20:30 VBG HCO3 24.6 mmol/L (23-29) 01/14/20 20:30 VBG O2 Sat (Rayray) 91.9 % (70-80) H 01/14/20 20:30 VBG Base Excess -2.2 mmol/L (-2-2) L 01/14/20 20:30 Patient On Oxygen Yes 02/01/20 06:48 O2 Delivery Device Nc 02/01/20 06:48 Oxygen Flow Rate 4l 02/01/20 06:48 Vent Mode No Result Required. 02/01/20 06:48 Vent Rate No Result Required. 02/01/20 06:48 Mechanical Rate No Result Required. 02/01/20 06:48 PEEP No Result Required. 02/01/20 06:48 Pressure Support Vent No Result Required. 02/01/20 06:48 Sodium 142 mmol/L (136-145) 02/02/20 09:00 Potassium 3.0 mmol/L (3.5-5.1) L 02/02/20 09:00 Chloride 102 mmol/L (98-107) 02/02/20 09:00 Carbon Dioxide 30 mmol/L (21-32) 02/02/20 09:00 Anion Gap 10 MMOL/L (8-16) 02/02/20 09:00 BUN 19.5 mg/dL (7-18) H 02/02/20 09:00 Creatinine 2.1 mg/dL (0.55-1.3) H 02/02/20 09:00 Est GFR (CKD-EPI)AfAm 25.84 02/02/20 09:00 Est GFR (CKD-EPI)NonAf 22.30 02/02/20 09:00 POC Glucometer 64 UNITS (80-120) 02/03/20 05:49 Random Glucose 156 mg/dL (74-106) H 02/02/20 09:00 Lactic Acid 1.9 mmol/L (0.4-2.0) 01/26/20 23:40 Calcium 7.7 mg/dL (8.5-10.1) L 02/02/20 09:00 Phosphorus 2.8 mg/dL (2.5-4.9) 02/02/20 09:00 Magnesium 1.9 mg/dL (1.8-2.4) 02/02/20 09:00 Iron 10 ug/dL (50-175) L 02/02/20 20:30 TIBC 53 ug/dL (250-450) L 02/02/20 20:30 Iron Saturation 18 % (17.5-39) 02/02/20 20:30 Unsaturated IBC 43 ug/dL (200-275) L 02/02/20 20:30 Ferritin 3483.5 ng/ml (8-388) H 02/02/20 20:30 Total Bilirubin 0.3 mg/dL (0.2-1) 02/02/20 09:00 Direct Bilirubin 0.1 mg/dL (0.0-0.2) 01/28/20 05:40 AST 44 U/L (15-37) H 02/02/20 09:00 ALT 15 U/L (13-61) 02/02/20 09:00 Alkaline Phosphatase 117 U/L (45-117) 02/02/20 09:00 LD Total 422 U/L (84-246) H 02/02/20 20:30 Troponin I 0.32 ng/ml (0.00-0.05) H 01/27/20 05:00 Total Protein 5.3 g/dl (6.4-8.2) L 02/02/20 09:00 Albumin 1.4 g/dl (3.4-5.0) L 02/02/20 09:00 Beta-Hydroxybutyrate 8.7 mg/dL (0.2-2.8) H 01/15/20 08:40 TSH 1.32 uIU/ml (0.358-3.74) 01/14/20 20:10 Stool Occult Blood Positive (NEGATIVE) 02/02/20 21:00 COVID-19 ([facility]) Not detected (Not Detected) 01/15/20 00:30 Hep Bs Antigen Negative (Negative) 01/15/20 14:50 Hep C Ab Diagnostic 0.1 s/co ratio (0.0-0.9) 01/15/20 14:50 Blood Type O POSITIVE 02/01/20 11:10 Antibody Screen Negative 02/01/20 11:10 Direct Antiglob Test Positive (NEGATIVE) 02/02/20 19:35 Crossmatch See Detail 02/01/20 11:10 Active Medications Albuterol Sulfate (Ventolin 0.083% Nebulizer Soln -) 1 amp NEB Q4H PRN PRN Reason: SHORT OF BREATH/WHEEZING Chlorhexidine Gluconate (Hibiclens For Decolonization -) 1 applic TP HS JOSE Collagenase (Santyl -) 1 applic TP DAILY JOSE; Protocol Dextrose (D50w (Vial) -) 25 gm IVPUSH PRN PRN PRN Reason: HYPOGLYCEMIA Stop: 02/04/20 12:00 Insulin Aspart (Novolog Vial Sliding Scale -) 1 vial SQ ACHS JOSE; Protocol Last Admin: 02/03/20 06:00 Dose: Not Given Documented by: Mupirocin (Bactroban Ointment (For Decolonization) -) 1 applic NS BID JOSE Stop: 02/08/20 09:59 Pantoprazole Sodium (Protonix Iv) 40 mg IVPUSH DAILY JOSE Last Admin: 02/02/20 09:33 Dose: 40 mg Documented by: ASSESSMENT/PLAN: 74 year old female w/ PMH of CVA, ESRD on HD, HTN, HLD, DM, sacral ulcer admitted to ICU for acute hypoxic respiratory failure. Pt was on 4S with SpO2 ~7 0 with increased work of breathing. Thus, rapid response called. Family was notified of pt's condition and rescinded DNR. Received HD 01/29. Pt tolerated CPAP mode for 20 minutes. RSBI was 67. Extubated 01/29. GOC discussion ongoing. Pt received Peg tube 01/30. Overnight, pt had bleeding at the Peg tube site, despite compression for 15 minutes and surgiceal. 2 additional stitches and surgiceal were placed. Bleeding stopped. Overnight, central line placed due to poor venous access. CT abd done due to investigation of dropping H/H, however, resulted in extravasation of contrast of L arm. Elevated coags debbie concern for DIC, thus heme/onc and GI consult placed. Elevated Given BG 41, 1 amp D5 given. Neuro CVA history Bihemispheric stroke with minimal responsiveness -Off sedation, minimally responsive at baseline. -assess mental status. -CT head showed moderate size subacute infarct in L frontal lobe. Large R MCA subacute infarct w/ suggestion of interval minimal hemorrhagic transformation seen in R frontal lobe. -Neuro consulted. Recommendations appreciated. -Plavix due to bleeding. Cardiac PMH HTN PMH HLD -Held home labetolol, valsartan, amlodipine, given soft bp. -Held lipitor, given transaminitis -Monitor and maintain MAP>65 -Monitor and transfuse to keep Hb>8 -Hb today 7.7, transfuse 1 uPRB -Cardio consulted. Troponin 5.2. Recommended aily EKG, trend trops. Start 12.5 mg metoprolol BID. -Heme/Onc consulted. -Tele monitor showed change. EKG showed tachycardia, L bundle branch block. Troponin 5.2. Pulmonary Atelectasis Acute hypoxic respiratory failure Aspiration PNA -CXR on 02/01 - L lung atelectasis w/ L side mediastinal shift -Placed on CPAP mode for 20 minutes, tolerated well. Saturated 100%. RSBI 67. Extubated 01/29. On 2L NC. Saturating at 100%. -d/c albuterol -c/w Chest physiotherapy and positional therapy -c/w suction of nasal/oropharynx -Spoke to respiratory in regards to curved suction to reach mucus plug in L bronchus, however, respiratory therapist and maintenance of way supervisor stated there is no "closed-loop" suction to use for this pt and that the curved suction is only compatible to pt's on a ventilator. GI s/p PEG placement Transaminitis -2 sutures placed on each side of peg tube on 01/30. Must be removed in 5 days. Renal Hypokalemia, improved ESRD on HD -Nephro consulted. Continue current management. Received dialysis today (02/02). ID Aspiration PNA Sacral ulcer -Discontinued Zosyn (on zosyn since 01/14) -Continue application Collegenase (Santyl) -ID consulted. Recommended discontinue zosyn and reculture off for current temperature and increased WBC. -COVID negative Endocrine Hypoglycemia, improved Diabetes mellitus Hypokalemia, resolved -ISS + BGM -1 amp D5 given FEN -No standing fluids -follow electrolytes and replete as needed -Feeds at 35 (nepro) as per dietary Px -DVT: SCD b/l -GI: PPI LTD -NGT 01/26 Family discussion/code status: Goals of care discussion ongoing. Palliative care saw pt, discussed GOC with family. FULL CODE. Spoke to daughter Kelsey, updated her on pt's grave prognosis. Dispo: Continue to monitor in ICU Visit type - Emergency Visit Emergency Visit: Yes ED Registration Date: 01/15/20 Care time: The patient presented to the Emergency Department on the above date and was hospitalized for further evaluation of their emergent condition. - New Patient This patient is new to me today: No - Critical Care Critical Care patient: Yes Total Critical Care Time (in minutes): 39 Critical Care Statement: The care of this patient involved high complexity decision making to prevent further life threatening deterioration of the patient's condition and/or to evaluate & treat vital organ system(s) failure or risk of failure. - Medication Review Med list reviewed for High Risk Meds patients 65 and older: Yes ATTENDING PHYSICIAN STATEMENT I saw and evaluated the patient. I reviewed the resident's note and discussed the case with the resident. I agree with the resident's findings and plan as documented. SUBJECTIVE: OBJECTIVE: ASSESSMENT AND PLAN:
[2020-02-03] MEDS ORDERED: ALBUTEROL SO4 0.083% IH SOL 2.5 MG/3 ML VIAL.NEB. NEB PRN (08:59)
--- NOTE | 2020-02-03 08:59 | PN ---
Progress Note (short form) - Note Progress Note: RENAL pt on telemetry she is unresponsive Last Vital Signs Temp Pulse Resp BP Pulse Ox 98.3 F 118 H 22 H 119/63 94 L 02/03/20 08:00 02/03/20 08:00 02/03/20 08:00 02/03/20 08:00 02/03/20 08:00 lungs clear cvs s1s2 rr abd soft ext upper ext edema neuro unresponsive CBC, BMP 02/03/20 03:15 02/02/20 09:00 Current Medications Generic Name Dose Route Start Last Admin Trade Name Freq PRN Reason Stop Dose Admin Albuterol Sulfate 1 amp 02/02/20 18:48 Ventolin 0.083% Nebulizer Soln - NEB Q4H PRN SHORT OF BREATH/WHEEZING Chlorhexidine Gluconate 1 applic 02/03/20 22:00 Hibiclens For Decolonization - TP HS JOSE Collagenase 1 applic 02/03/20 10:00 Santyl - TP DAILY JOSE Protocol Dextrose 25 gm 02/03/20 01:05 D50w (Vial) - IVPUSH 02/04/20 12:00 PRN PRN HYPOGLYCEMIA Insulin Aspart 1 vial 02/02/20 22:00 02/03/20 06:00 Novolog Vial Sliding Scale - SQ Not Given ACHS JOSE Protocol Mupirocin 1 applic 02/03/20 10:00 Bactroban Ointment (For Decolonization) - NS 02/08/20 09:59 BID JOSE Pantoprazole Sodium 40 mg 02/01/20 17:15 02/02/20 09:33 Protonix Iv IVPUSH 40 mg DAILY JOSE Administration IMPRESSION esrd htn s/p cva x 2- unresponsive hypokalemia resolved covid 19 neg hypernatremia resolved PLAN will dialyze again today repeat bmp MV
[2020-02-03] MEDS ORDERED: SODIUM CHLORIDE 250 ML IV PRN (09:18)
--- NOTE | 2020-02-03 09:34 | CON.HO ---
Consult - text type - Consultation Consultation Note: 74 year old female with medical history of ESRD (on HD), hypertension, DMII, GERD, HTN, HL, aphasia and stroke 3 months ago, admitted to ICU fro ED for progressive weakness and reported unresponsiveness. 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 No: AFIB, Aneurysm, Aortic Insufficiency, Aortic Stenosis, CAD, CHF, Deep Vein Thrombosis, Hyperlipdemia, GA, Mitral Insufficiency, Mitral Stenosis, Other Pulmonary: Yes: Previously Intubated Renal/: Yes: Renal Failure, Hemodialysis. No: Renal Inusuff, Cancer, Hematuria, Neurogenic Bladder, Renal Calculi, UTI, Other ...: No - Past Surgical History Past Surgical History: Yes: AV Fistula/Graft. No: None, AAA Repair, AICD, Amputation, Appendectomy, Arthrosocopy, Bariatric Surgery, Breast Biopsy, Bypass, CABG, Carotid Endarterectomy, Cataract Removal, Cholecystectomy, Colectomy, Colonoscopy, Colostomy, Craniotomy, , Cystectomy, Hernia Repair, Hysterectomy, Ileal Conduit, Ileosotomy, Joint Replacement, Kidney Transplant, Laminectomy, Liver Transplant, Mastectomy, Nephrectomy, Oopherectomy, Permanent Pacemaker, Splenectomy, Stent, Thoracotomy, Tonsillectomy, Tubal Ligation, Upper Endoscopy, Valve Replacement, Vein Stripping/Ligation - Alcohol/Substance Use Hx Alcohol Use: No - Smoking History Smoking history: Never smoked Have you smoked in the past 12 months: No Aproximately how many cigarettes per day: 0 - Social History Usual Living Arrangement: With Child Home Medications - Allergies Allergies/Adverse Reactions: Allergies Allergy/AdvReac Type Severity Reaction Status Date / Time propofol AdvReac Verified 07/29/16 15:05 - Home Medications Home Medications: Ambulatory Orders Albuterol Sulfate Inhaler - [Ventolin Hfa Inhaler -] 1 - 2 inh PO QID 01/15/20 Amlodipine Besylate 10 mg PO DAILY 01/15/20 Atorvastatin Ca [Lipitor] 40 mg PO HS 01/15/20 Clopidogrel Bisulfate [Clopidogrel] 75 mg PO DAILY 01/15/20 Famotidine [Pepcid -] 40 mg PO DAILY 01/15/20 Labetalol HCl [Normodyne -] 200 mg PO BID 01/15/20 Ursodiol [Actigal] 300 mg PO BID 01/15/20 Valsartan 160 mg PO DAILY 01/15/20 Review of Systems Unable to obtain ROS, reason: unable to obtain - Review of Systems Respiratory: reports: Other (intubated) Gastrointestinal: reports: Vomiting Physical Exam Vital Signs: T-97.3 BP-147/79 Constitutional: Yes: Cachectic Cardiovascular: Yes: WNL, Regular Rate and Rhythm, Pulse Irregular Respiratory: Yes: WNL, Regular, CTA Bilaterally Gastrointestinal: Yes: WNL, Normal Bowel Sound) Edema: Yes Neurological: Yes: Aphasia, Weakness Labs/Meds reviewed Imaging - Results X-ray: Image Reviewed (Personal read: no opacities noted Assessment/Plan 74yo F with Hx of CVA w/ aphasia and L paralysis, ESRD on HD MWF, HTN, HLD admitted to ICU for lethargy/unresponsiveness. Acute Respiratory Failure Acute CVA Pneumonia likely Aspiration ESRD on HD HTN DM Hyperlipidemia h/o CVA s/p PEG tube placement on 01/31/20 Anemia Dropping hemolglobin---- ? blood loss worsening anemia of chronic disease s/p PEG tube placement 01/30 f/u CT GI consult Unlikely hemolysis : Sapna+ but LDH marginally elevated. Haptoglobin pending r/o dic, ? aspirationpneumonia Goals of care discussion
[2020-02-03] MEDS ORDERED: COLLAGENASE CLOSTRIDIUM HIST. 30 GRAMS TUBE TP SCH (10:00)
--- NOTE | 2020-02-03 10:23 | PN ---
Teaching Attending Note Name of Resident: Kiley Devi ATTENDING PHYSICIAN STATEMENT I saw and evaluated the patient. I reviewed the resident's note and discussed the case with the resident. I agree with the resident's findings and plan as documented. SUBJECTIVE: Pt seen and examined in the ICU. Tachycardic this AM. Transfused 2 units PRBC o vernight. Pt poorly responsive but saturating well on nasal cannula. OBJECTIVE: Vital Signs Period Temp Pulse Resp BP Sys/Ramirez Pulse Ox Last 24 Hr 98 F-99.4 F 110-120 18-24 118-147/55-75 94-100 Intake & Output 01/31/20 02/01/20 02/02/20 02/03/20 23:59 23:59 23:59 23:59 Intake Total 1121 814 800 Output Total 0 878 Balance 0 243 814 800 Weight 50.884 kg Gen: NAD at rest Heart: RRR Lung: bilateral rhonchi Abd: soft, nontender Ext: no edema CBC, BMP 02/03/20 03:15 02/02/20 09:00 Active Medications Chlorhexidine Gluconate (Hibiclens For Decolonization -) 1 applic TP HS JOSE Collagenase (Santyl -) 1 applic TP DAILY JOSE; Protocol Dextrose (D50w (Vial) -) 25 gm IVPUSH PRN PRN PRN Reason: HYPOGLYCEMIA Stop: 02/04/20 12:00 Sodium Chloride (Normal Saline -) 250 mls @ 3,000 mls/hr IV PRN PRN PRN Reason: Hypotension during Dialysis Stop: 02/04/20 09:19 Insulin Aspart (Novolog Vial Sliding Scale -) 1 vial SQ ACHS JOSE; Protocol Mupirocin (Bactroban Ointment (For Decolonization) -) 1 applic NS BID JOSE Stop: 02/08/20 09:59 Pantoprazole Sodium (Protonix Iv) 40 mg IVPUSH DAILY JOSE ASSESSMENT AND PLAN: Acute Hypoxic Respiratory Failure Acute CVA Pneumonia likely Aspiration Acute Blood Loss Anemia ESRD on HD HTN DM Hyperlipidemia h/o CVA - EKG, cardiac markers - completed antibiotics - O2 to keep SpO2 >90% - HD per renal - aspiration precautions - enteral feeds - DVT prophylaxis - continue discussions regarding goals of care, advanced directives - continue ICU monitoring
[2020-02-03] MEDS: PANTOPRAZOLE SODIUM 40 MG VIAL IVPUSH SCH (10:50)
[2020-02-03] MEDS: MUPIROCIN 2% TOPICAL OINTMENT FOR DECOLONIZATION NS SCH ×2 (10:51→21:59)
[2020-02-03] MEDS: COLLAGENASE CLOSTRIDIUM HIST. 30 GRAMS TUBE TP SCH (10:52)
--- NOTE | 2020-02-03 11:04 | PN.GI ---
GI Progress Note Subjective: Called to reevaluate worsening of anemia Had G-Tube placed 01/30 by IR. By description, large external clot noted around G-tube stoma that was cleared by primary team. Suture applied to the G-Tube site and surgicel appeared to have been placed under the external bolster. - Objective Vital Signs: Vital Signs Temperature 98.3 F 02/03/20 08:00 Pulse Rate 110 H 02/03/20 09:00 Respiratory Rate 18 02/03/20 09:00 Blood Pressure 147/69 02/03/20 09:00 O2 Sat by Pulse Oximetry (%) 99 02/03/20 09:00 Constitutional: Calm, Other (Non-verbal) Eyes: No: Sclera Icterus Cardiovascular: Yes: Tachycardia Respiratory: Yes: Diminished (at bases bilaterally with poor insp effort) Gastrointestinal Inspection: Yes: Other (G-Tube LUQ w/ external cushions sutured to the skin noted under external bolster. There was surgicel under the bolster with dried blood. NGT was lavaged with 500 CC sterile water. There was clear, non-bloody return.) ...Auscultate: Yes: Normoactive Bowel Sounds ...Palpate: Yes: Soft. No: Tenderness ...Percussion: No: Tympanitic Edema: No (No LE edema) Neurological: Yes: Alert Labs: CBC, BMP 02/03/20 03:15 INR, PTT INR 1.56 (0.83-1.09) H 02/02/20 20:30 Fibrinogen > 500.0 mg/dL (238-498) H 02/02/20 20:30 Problem List - Problems (1) Anemia Assessment/Plan: Acxute worsening of chronic anemia, likely from stomal bleed. No evidence of acute GI bleed Advise: Surgical evaluation if continued bleeding at stomal on site manager for further active bleeding Transfusion parameters per PMD No GI interventions planned at this time If no surgical interventions required, resume tube feeds per primary team Aspiration precauitions Recall GI as needed Code(s): D64.9 - ANEMIA, UNSPECIFIED
[2020-02-03] MEDS ORDERED: DEXTROSE 50%-WATER 25 GM/50 ML DISP.SYRIN ONE (11:28)
[2020-02-03 11:41] LABS: BASO % 0.2 % (0-2.0); EOS % 0.2 % (0-4.5); HEMOGLOBIN 7.7 GM/dL (10.7-15.3); LYMPH % 7.2 % (8-40); MCH 30.8 pg (25.7-33.7); MCHC 33.4 g/dl (32.0-36.0); MEAN CELL VOLUME 92.1 fl (80-96); MEAN PLT VOLUME 8.7 fl (7.5-11.1); MONO % 5.7 % (3.8-10.2); NEUT % 86.7 % (42.8-82.8); PLATELET COUNT 398 K/MM3 (134-434); RBC 2.49 M/mm3 (3.60-5.2); RDW 19.5 % (11.6-15.6); WHITE BLOOD COUNT 10.6 K/mm3 (4.0-10.0)
[2020-02-03 12:12] LABS: ALBUMIN 1.3 g/dl (3.4-5.0); BILIRUBIN,TOTAL 0.3 mg/dL (0.2-1); BLOOD UREA NITROGEN 23.8 mg/dL (7-18); CALCIUM 7.8 mg/dL (8.5-10.1); CREATININE 2.8 mg/dL (0.55-1.3); MAGNESIUM 1.8 mg/dL (1.8-2.4); PHOSPHOROUS 3.3 mg/dL (2.5-4.9); POTASSIUM 3.5 mmol/L (3.5-5.1); TOT PROT 5.2 g/dl (6.4-8.2)
--- NOTE | 2020-02-03 12:51 | PN ---
Progress Note, Physician History of Present Illness: pt seen/ examined in icu chart is reviewed Unresponsive All f/u noted d/w ICu resident also s/p transfusion Gi f/u also noted regarding PEG - Current Medication List Current Medications: Active Medications Chlorhexidine Gluconate (Hibiclens For Decolonization -) 1 applic TP HS JOSE Collagenase (Santyl -) 1 applic TP DAILY JOSE; Protocol Last Admin: 02/03/20 10:52 Dose: 1 applic Documented by: Sodium Chloride (Normal Saline -) 250 mls @ 3,000 mls/hr IV PRN PRN PRN Reason: Hypotension during Dialysis Stop: 02/04/20 09:19 Insulin Aspart (Novolog Vial Sliding Scale -) 1 vial SQ ACHS JOSE; Protocol Last Admin: 02/03/20 11:47 Dose: Not Given Documented by: Mupirocin (Bactroban Ointment (For Decolonization) -) 1 applic NS BID JOSE Stop: 02/08/20 09:59 Last Admin: 02/03/20 10:51 Dose: 1 applic Documented by: Pantoprazole Sodium (Protonix Iv) 40 mg IVPUSH DAILY JOSE Last Admin: 02/03/20 10:50 Dose: 40 mg Documented by: - Objective Vital Signs: Vital Signs Temperature 98.3 F 02/03/20 08:00 Pulse Rate 113 H 02/03/20 11:30 Respiratory Rate 19 02/03/20 11:30 Blood Pressure 146/68 02/03/20 11:30 O2 Sat by Pulse Oximetry (%) 99 02/03/20 09:00 Constitutional: Yes: Other (unresponsive) Neck: Yes: Supple Cardiovascular: Yes: Regular Rate and Rhythm Respiratory: Yes: Diminished Gastrointestinal: Yes: Soft, Other (peg +) Edema: No Labs: CBC, BMP 02/03/20 09:00 02/03/20 10:30 INR, PTT INR 1.56 (0.83-1.09) H 02/02/20 20:30 Fibrinogen > 500.0 mg/dL (238-498) H 02/02/20 20:30 Problem List - Problems (1) Stroke Code(s): I63.9 - CEREBRAL INFARCTION, UNSPECIFIED (2) Pneumonia, aspiration Code(s): J69.0 - PNEUMONITIS DUE TO INHALATION OF FOOD AND VOMIT (3) Diabetes Code(s): E11.9 - TYPE 2 DIABETES MELLITUS WITHOUT COMPLICATIONS (4) ESRD on dialysis Code(s): N18.6 - END STAGE RENAL DISEASE; Z99.2 - DEPENDENCE ON RENAL DIALYSIS Assessment/Plan A/P Acute right temporoparietal infarct -- Large MCA aspiration pneumonia ESRD -HD Respiratory failure Anemia s/p PEG Continue present care Overall condition poor Resuscitation will be futile Family wants everything to be done Palliative team following Same treatment for now Prognosis poor Transfuse prn Dialysis per renal- today will continue to follow
--- NOTE | 2020-02-03 13:23 | PN ---
Physical Exam: SUBJECTIVE: Patient seen and examined OBJECTIVE: Vital Signs Period Temp Pulse Resp BP Sys/Ramirez Pulse Ox Last 24 Hr 98 F-99.4 F 110-120 18-24 119-147/53-75 94-100 GENERAL: The patient is awake, alert, and fully oriented, in no acute distress. HEAD: Normal with no signs of trauma. EYES: PERRL, extraocular movements intact, sclera anicteric, conjunctiva clear. No ptosis. ENT: Ears normal, nares patent, oropharynx clear without exudates, moist mucous membranes. NECK: Trachea midline, full range of motion, supple. LUNGS: Breath sounds equal, clear to auscultation bilaterally, no wheezes, no crackles, no accessory muscle use. HEART: Regular rate and rhythm, S1, S2 without murmur, rub or gallop. ABDOMEN: Soft, nontender, nondistended, normoactive bowel sounds, no guarding, no rebound, no hepatosplenomegaly, no masses. EXTREMITIES: 2+ pulses, warm, well-perfused, no edema. NEUROLOGICAL: Cranial nerves II through XII grossly intact. Normal speech, gait not observed. PSYCH: Normal mood, normal affect. SKIN: Warm, dry, normal turgor, no rashes or lesions noted Laboratory Results - last 24 hr 02/01/20 02/02/20 02/02/20 11:10 17:04 17:40 WBC 8.9 RBC 1.62 L Hgb 5.1 L* Hct 15.8 L D MCV 97.6 H MCH 31.7 MCHC 32.5 RDW 18.2 H Plt Count 477 H MPV 8.4 Absolute Neuts (auto) Neutrophils % Lymphocytes % Monocytes % Eosinophils % Basophils % Nucleated RBC % PT with INR INR PTT (Actin FS) Fibrinogen D-Dimer Sodium Potassium Chloride Carbon Dioxide Anion Gap BUN Creatinine Est GFR (CKD-EPI)AfAm Est GFR (CKD-EPI)NonAf POC Glucometer 109 Random Glucose Calcium Phosphorus Magnesium Iron TIBC Iron Saturation Unsaturated IBC Ferritin Total Bilirubin AST ALT Alkaline Phosphatase LD Total Creatine Kinase Troponin I Total Protein Albumin Stool Occult Blood Blood Type O POSITIVE Antibody Screen Negative Direct Antiglob Test Crossmatch See Detail 02/02/20 02/02/20 02/02/20 18:45 19:35 20:30 WBC 9.2 RBC 2.05 L Hgb 6.4 L* Hct 20.0 L D MCV 97.5 H MCH 31.2 MCHC 32.0 RDW 18.2 H Plt Count 464 H MPV 8.6 Absolute Neuts (auto) Neutrophils % Lymphocytes % Monocytes % Eosinophils % Basophils % Nucleated RBC % PT with INR INR PTT (Actin FS) Fibrinogen D-Dimer Sodium Potassium Chloride Carbon Dioxide Anion Gap BUN Creatinine Est GFR (CKD-EPI)AfAm Est GFR (CKD-EPI)NonAf POC Glucometer Random Glucose Calcium Phosphorus Magnesium Iron 10 L TIBC 53 L Iron Saturation 18 Unsaturated IBC 43 L Ferritin 3483.5 H Total Bilirubin AST ALT Alkaline Phosphatase LD Total 422 H Creatine Kinase Troponin I Total Protein Albumin Stool Occult Blood Blood Type Antibody Screen Direct Antiglob Test Positive Crossmatch See Detail 02/02/20 02/02/20 02/02/20 20:30 20:30 21:00 WBC RBC Hgb Hct MCV MCH MCHC RDW Plt Count MPV Absolute Neuts (auto) Neutrophils % Lymphocytes % Monocytes % Eosinophils % Basophils % Nucleated RBC % PT with INR 18.50 H INR 1.56 H PTT (Actin FS) 39.3 H Fibrinogen > 500.0 H D-Dimer 1385 H Sodium Potassium Chloride Carbon Dioxide Anion Gap BUN Creatinine Est GFR (CKD-EPI)AfAm Est GFR (CKD-EPI)NonAf POC Glucometer Random Glucose Calcium Phosphorus Magnesium Iron TIBC Iron Saturation Unsaturated IBC Ferritin Total Bilirubin AST ALT Alkaline Phosphatase LD Total Creatine Kinase Troponin I Total Protein Albumin Stool Occult Blood Positive Blood Type Antibody Screen Direct Antiglob Test Crossmatch 02/02/20 02/03/20 02/03/20 22:59 00:19 02:56 WBC RBC Hgb Hct MCV MCH MCHC RDW Plt Count MPV Absolute Neuts (auto) Neutrophils % Lymphocytes % Monocytes % Eosinophils % Basophils % Nucleated RBC % PT with INR INR PTT (Actin FS) Fibrinogen D-Dimer Sodium Potassium Chloride Carbon Dioxide Anion Gap BUN Creatinine Est GFR (CKD-EPI)AfAm Est GFR (CKD-EPI)NonAf POC Glucometer 41 60 123 Random Glucose Calcium Phosphorus Magnesium Iron TIBC Iron Saturation Unsaturated IBC Ferritin Total Bilirubin AST ALT Alkaline Phosphatase LD Total Creatine Kinase Troponin I Total Protein Albumin Stool Occult Blood Blood Type Antibody Screen Direct Antiglob Test Crossmatch 02/03/20 02/03/20 02/03/20 03:15 05:49 09:00 WBC 10.3 H 10.6 H RBC 2.49 L 2.49 L Hgb 7.7 L 7.7 L Hct 22.8 L 23.0 L MCV 91.6 92.1 MCH 30.7 30.8 MCHC 33.5 33.4 RDW 19.1 H 19.5 H Plt Count 383 398 MPV 8.3 8.7 Absolute Neuts (auto) 9.2 H Neutrophils % 86.7 H Lymphocytes % 7.2 L D Monocytes % 5.7 Eosinophils % 0.2 Basophils % 0.2 Nucleated RBC % 0 PT with INR INR PTT (Actin FS) Fibrinogen D-Dimer Sodium Potassium Chloride Carbon Dioxide Anion Gap BUN Creatinine Est GFR (CKD-EPI)AfAm Est GFR (CKD-EPI)NonAf POC Glucometer 64 Random Glucose Calcium Phosphorus Magnesium Iron TIBC Iron Saturation Unsaturated IBC Ferritin Total Bilirubin AST ALT Alkaline Phosphatase LD Total Creatine Kinase Troponin I Total Protein Albumin Stool Occult Blood Blood Type Antibody Screen Direct Antiglob Test Crossmatch 02/03/20 02/03/20 10:30 11:22 WBC RBC Hgb Hct MCV MCH MCHC RDW Plt Count MPV Absolute Neuts (auto) Neutrophils % Lymphocytes % Monocytes % Eosinophils % Basophils % Nucleated RBC % PT with INR INR PTT (Actin FS) Fibrinogen D-Dimer Sodium 141 Potassium 3.5 Chloride 104 Carbon Dioxide 31 Anion Gap 7 L BUN 23.8 H Creatinine 2.8 H Est GFR (CKD-EPI)AfAm 18.25 Est GFR (CKD-EPI)NonAf 15.75 POC Glucometer 68 Random Glucose 151 H Calcium 7.8 L Phosphorus 3.3 Magnesium 1.8 Iron TIBC Iron Saturation Unsaturated IBC Ferritin Total Bilirubin 0.3 AST 32 ALT 14 Alkaline Phosphatase 140 H LD Total 368 H Creatine Kinase 61 Troponin I 5.21 H* Total Protein 5.2 L Albumin 1.3 L Stool Occult Blood Blood Type Antibody Screen Direct Antiglob Test Crossmatch Active Medications Generic Name Dose Route Start Last Admin Trade Name Freq PRN Reason Stop Dose Admin Chlorhexidine Gluconate 1 applic 02/03/20 22:00 Hibiclens For Decolonization - TP HS JOSE Collagenase 1 applic 02/03/20 10:00 02/03/20 10:52 Santyl - TP 1 applic DAILY JOSE Administration Protocol Sodium Chloride 250 mls @ 3,000 mls/hr 02/03/20 09:18 Normal Saline - IV 02/04/20 09:19 PRN PRN Hypotension during Dialysis Insulin Aspart 1 vial 02/03/20 11:00 02/03/20 11:47 Novolog Vial Sliding Scale - SQ Not Given ACHS [facility] Protocol Mupirocin 1 applic 02/03/20 10:00 02/03/20 10:51 Bactroban Ointment (For Decolonization) - NS 02/08/20 09:59 1 applic BID JOSE Administration Pantoprazole Sodium 40 mg 02/03/20 10:00 02/03/20 10:50 Protonix Iv IVPUSH 40 mg DAILY JOSE Administration ASSESSMENT/PLAN: ATTENDING PHYSICIAN STATEMENT I saw and evaluated the patient. I reviewed the resident's note and discussed the case with the resident. I agree with the resident's findings and plan as documented. SUBJECTIVE: OBJECTIVE: ASSESSMENT AND PLAN:
--- NOTE | 2020-02-03 13:52 | CON.CARD ---
Consult Consult Specialty:: Cardiology - History of Present Illness History of Present Illness: 74 year old female with medical history of ESRD (on HD), hypertension, DMII, GERD, HTN, HL, aphasia and stroke 3 months ago, admitted to ICU fro ED for progressive weakness and reported unresponsiveness. Head CT showed (01/13) right pareital, occipital and temporal lobe suggestive of acute CVA no acute intracr anial bleed ; Prolonged ICU course complicated by Acxute worsening of chronic anemia, likely from stomal bleed. Elevated TNIs most likely anemia induced ischemia. - History Source History Provided By: Medical Record - Past Medical History [place]: Yes: CVA, Dementia Cardio/Vascular: Yes: HTN, Murmur, Pulmonary Hypertension. No: AFIB, Aneurysm, Aortic Insufficiency, Aortic Stenosis, CAD, CHF, Deep Vein Thrombosis, Hyperlipdemia, RI, Mitral Insufficiency, Mitral Stenosis, Other Pulmonary: Yes: Previously Intubated Renal/: Yes: Renal Failure, Hemodialysis. No: Renal Inusuff, Cancer, Hematuria, Neurogenic Bladder, Renal Calculi, UTI, Other ...: No - Past Surgical History Past Surgical History: Yes: AV Fistula/Graft. No: None, AAA Repair, AICD, Amputation, Appendectomy, Arthrosocopy, Bariatric Surgery, Breast Biopsy, Bypass, CABG, Carotid Endarterectomy, Cataract Removal, Cholecystectomy, Colectomy, Colonoscopy, Colostomy, Craniotomy, , Cystectomy, Hernia Repair, Hysterectomy, Ileal Conduit, Ileosotomy, Joint Replacement, Kidney Transplant, Laminectomy, Liver Transplant, Mastectomy, Nephrectomy, Oopherectomy, Permanent Pacemaker, Splenectomy, Stent, Thoracotomy, Tonsillectomy, Tubal Ligation, Upper Endoscopy, Valve Replacement, Vein Stripping/Ligation - Alcohol/Substance Use Hx Alcohol Use: No - Smoking History Smoking history: Never smoked Have you smoked in the past 12 months: No Aproximately how many cigarettes per day: 0 - Social History Usual Living Arrangement: Care Home Home Medications - Allergies Allergies/Adverse Reactions: Allergies Allergy/AdvReac Type Severity Reaction Status Date / Time propofol AdvReac Verified 07/29/16 15:05 - Home Medications Home Medications: Ambulatory Orders Albuterol Sulfate Inhaler - [Ventolin Hfa Inhaler -] 1 - 2 inh PO QID 01/15/20 Amlodipine Besylate 10 mg PO DAILY 01/15/20 Atorvastatin Ca [Lipitor] 40 mg PO HS 01/15/20 Clopidogrel Bisulfate [Clopidogrel] 75 mg PO DAILY 01/15/20 Famotidine [Pepcid -] 40 mg PO DAILY 01/15/20 Labetalol HCl [Normodyne -] 200 mg PO BID 01/15/20 Ursodiol [Actigal] 300 mg PO BID 01/15/20 Valsartan 160 mg PO DAILY 01/15/20 Review of Systems Unable to obtain ROS, reason: unresponsive Vital Signs: Vital Signs Temperature 98.3 F 02/03/20 08:00 Pulse Rate 110 H 02/03/20 13:00 Respiratory Rate 23 H 02/03/20 13:00 Blood Pressure 133/65 02/03/20 13:00 O2 Sat by Pulse Oximetry (%) 100 02/03/20 11:29 Constitutional: Yes: Well Nourished, No Distress, Calm Eyes: Yes: WNL, Conjunctiva Clear, EOM Intact HENT: Yes: WNL, Atraumatic, Normocephalic Neck: Yes: WNL, Supple, Trachea Midline Respiratory: Yes: Diminished, Mechanically Ventilated Gastrointestinal: Yes: WNL, Normal Bowel Sounds Renal/: Yes: WNL Cardiovascular: Yes: WNL, Regular Rate and Rhythm Musculoskeletal: Yes: WNL Extremities: Yes: WNL Integumentary: Yes: WNL ...Motor Strength: WNL - Other Data Labs, Other Data: CBC, BMP 02/03/20 09:00 02/03/20 10:30 INR, PTT INR 1.56 (0.83-1.09) H 02/02/20 20:30 Fibrinogen > 500.0 mg/dL (238-498) H 02/02/20 20:30 Troponin, BNP 02/03/20 10:30 Troponin I 5.21 H* Troponin, BNP 02/03/20 10:30 Troponin I 5.21 H* Imaging - Results Chest X-ray: Image Reviewed EKG: Image Reviewed (01-26- sr lbbb rep abn new LBBB and st changes? ischemia) Problem List - Problems (1) Altered mental status Code(s): R41.82 - ALTERED MENTAL STATUS, UNSPECIFIED (2) Anemia Code(s): D64.9 - ANEMIA, UNSPECIFIED (3) Lactic acidosis Code(s): E87.2 - ACIDOSIS (4) Pneumonia, aspiration Code(s): J69.0 - PNEUMONITIS DUE TO INHALATION OF FOOD AND VOMIT (5) Stroke Code(s): I63.9 - CEREBRAL INFARCTION, UNSPECIFIED (6) Clotted dialysis access Code(s): T82.49XA - OTH COMPLICATION OF VASCULAR DIALYSIS CATHETER, INIT ENCNTR (7) Diabetes Code(s): E11.9 - TYPE 2 DIABETES MELLITUS WITHOUT COMPLICATIONS (8) ESRD on dialysis Code(s): N18.6 - END STAGE RENAL DISEASE; Z99.2 - DEPENDENCE ON RENAL DIALYSIS (9) Hypertension Code(s): I10 - ESSENTIAL (PRIMARY) HYPERTENSION (10) SOB (shortness of breath) Code(s): R06.02 - SHORTNESS OF BREATH Assessment/Plan Acute right temporoparietal infarct -- Large MCA aspiration pneumonia ESRD -HD Respiratory failure severe Anemia New elevated TNIs - most likely due to demand ischemia due to severe anemia. New LBBB 7-25-20 s/p PEG Plan; serial TNIs serial EKGs keep HCT around 30% Metoprolol 12.5 BID ASA if cleared by Neuro and GI ECHO Further cardiac w/u will depend on mental status recovery cc time spent 70 min
[2020-02-03] MEDS ORDERED: METOPROLOL TARTRATE 5 MG/5 ML VIAL IVPUSH ONE (20:05)
[2020-02-03] MEDS: METOPROLOL TARTRATE 25 MG TABLET (FP) PO SCH (21:46)
[2020-02-03] MEDS: CHLORHEXIDINE GLUCONATE 4% CLEANSER FOR DECOLONIZATION TP SCH (21:59)
[2020-02-03] MEDS ORDERED: METOPROLOL TARTRATE 25 MG TABLET (FP) PO SCH (22:00)
[2020-02-03] MEDS ORDERED: ACETAMINOPHEN 1000 MG/100 ML VIAL (NON FORMULARY) IVPB ONE (22:07)
[2020-02-04] MEDS: INSULIN SLIDING SCALE (NOVOLOG) 1 VIAL SQ SCH ×4 (00:02→17:44)
[2020-02-04 07:15] LABS: BASO % 0.3 % (0-2.0); EOS % 0.5 % (0-4.5); HEMATOCRIT 27.7 % (32.4-45.2); HEMOGLOBIN 9.3 GM/dL (10.7-15.3); LYMPH % 6.5 % (8-40); MCH 30.4 pg (25.7-33.7); MCHC 33.6 g/dl (32.0-36.0); MEAN CELL VOLUME 90.5 fl (80-96); MEAN PLT VOLUME 8.5 fl (7.5-11.1); MONO % 6.3 % (3.8-10.2); NEUT % 86.4 % (42.8-82.8); PLATELET COUNT 372 K/MM3 (134-434); RBC 3.06 M/mm3 (3.60-5.2); RDW 18.6 % (11.6-15.6); WHITE BLOOD COUNT 13.1 K/mm3 (4.0-10.0)
[2020-02-04 07:46] LABS: ALBUMIN 1.3 g/dl (3.4-5.0); BILIRUBIN,TOTAL 0.5 mg/dL (0.2-1); BLOOD UREA NITROGEN 14.9 mg/dL (7-18); CALCIUM 7.9 mg/dL (8.5-10.1); MAGNESIUM 1.8 mg/dL (1.8-2.4); PHOSPHOROUS 2.9 mg/dL (2.5-4.9); POTASSIUM 3.3 mmol/L (3.5-5.1); TOT PROT 5.2 g/dl (6.4-8.2)
[2020-02-04] MEDS ORDERED: KCL 10 MEQ IVPB 10 MEQ/100 ML INFUS.BAG IVPB SCH (08:30)
--- NOTE | 2020-02-04 09:27 | PN ---
Progress Note (short form) - Note Progress Note: RENAL pt on telemetry she is unresponsive Last Vital Signs Temp Pulse Resp BP Pulse Ox 98.5 F 94 H 18 147/82 100 02/04/20 06:00 02/04/20 08:00 02/04/20 08:00 02/04/20 08:00 02/04/20 08:00 lungs clear cvs s1s2 rr abd soft ext upper ext edema neuro unresponsive CBC, BMP 02/04/20 05:00 02/04/20 05:00 Current Medications Generic Name Dose Route Start Last Admin Trade Name Freq PRN Reason Stop Dose Admin Chlorhexidine Gluconate 1 applic 02/03/20 22:00 02/03/20 21:59 Hibiclens For Decolonization - TP 1 applic HS JOSE Administration Collagenase 1 applic 02/03/20 10:00 02/03/20 10:52 Santyl - TP 1 applic DAILY JOSE Administration Protocol Sodium Chloride 250 mls @ 3,000 mls/hr 02/03/20 09:18 Normal Saline - IV 02/04/20 09:19 PRN PRN Hypotension during Dialysis Insulin Aspart 1 vial 02/03/20 17:30 02/04/20 05:53 Novolog Vial Sliding Scale - SQ Not Given Q6HPO JOSE Protocol Metoprolol Tartrate 12.5 mg 02/03/20 22:00 02/03/20 21:46 Lopressor - PO 12.5 mg BID JOSE Administration Mupirocin 1 applic 02/03/20 10:00 02/03/20 21:59 Bactroban Ointment (For Decolonization) - NS 02/08/20 09:59 1 applic BID JOSE Administration Pantoprazole Sodium 40 mg 02/03/20 10:00 02/03/20 10:50 Protonix Iv IVPUSH 40 mg DAILY JOSE Administration IMPRESSION esrd htn s/p cva x 2- unresponsive hypokalemia resolved covid 19 neg hypernatremia resolved PLAN GOC repeat HD in 2 days replace rebecca WOODALL
[2020-02-04] MEDS: METOPROLOL TARTRATE 25 MG TABLET (FP) PO SCH ×2 (10:06→21:07)
[2020-02-04] MEDS: MUPIROCIN 2% TOPICAL OINTMENT FOR DECOLONIZATION NS SCH ×2 (10:06→21:07)
[2020-02-04] MEDS: PANTOPRAZOLE SODIUM 40 MG VIAL IVPUSH SCH (10:07)
--- NOTE | 2020-02-04 10:42 | PN ---
Teaching Attending Note Name of Resident: Juanito Brown ATTENDING PHYSICIAN STATEMENT I saw and evaluated the patient. I reviewed the resident's note and discussed the case with the resident. I agree with the resident's findings and plan as documented. SUBJECTIVE: Pt seen and examined in the ICU. Less tachycardic this AM. Pt poorly responsive but saturating well on nasal cannula. OBJECTIVE: Vital Signs Period Temp Pulse Resp BP Sys/Ramirez Pulse Ox Last 24 Hr 97.8 F-99 F 76-118 14-27 110-161/53-92 85-100 Intake & Output 02/01/20 02/02/20 02/03/20 02/04/20 23:59 23:59 23:59 23:59 Intake Total 1271 644 0283 20 Output Total 878 2800 0 Balance 243 814 -1000 20 Weight 50.884 kg 44.089 kg Gen: NAD at rest Heart: RRR Lung: bilateral rhonchi Abd: soft, nontender Ext: no edema CBC, BMP 02/04/20 05:00 02/04/20 05:00 Active Medications Chlorhexidine Gluconate (Hibiclens For Decolonization -) 1 applic TP HS [facility] Last Admin: 02/03/20 21:59 Dose: 1 applic Documented by: Collagenase (Santyl -) 1 applic TP DAILY JOSE; Protocol Last Admin: 02/03/20 10:52 Dose: 1 applic Documented by: Sodium Chloride (Normal Saline -) 250 mls @ 3,000 mls/hr IV PRN PRN PRN Reason: Hypotension during Dialysis Stop: 02/04/20 09:19 Insulin Aspart (Novolog Vial Sliding Scale -) 1 vial SQ Q6HPO [facility]; Protocol Last Admin: 02/04/20 05:53 Dose: Not Given Documented by: Metoprolol Tartrate (Lopressor -) 12.5 mg PO BID [facility] Last Admin: 02/04/20 10:06 Dose: 12.5 mg Documented by: Mupirocin (Bactroban Ointment (For Decolonization) -) 1 applic NS BID [facility] Stop: 02/08/20 09:59 Last Admin: 02/04/20 10:06 Dose: 1 applic Documented by: Pantoprazole Sodium (Protonix Iv) 40 mg IVPUSH DAILY [facility] Last Admin: 02/04/20 10:07 Dose: 40 mg Documented by: ASSESSMENT AND PLAN: Acute Hypoxic Respiratory Failure Acute CVA Pneumonia likely Aspiration Acute Blood Loss Anemia ESRD on HD HTN DM Hyperlipidemia h/o CVA - trend cardiac enzymes - completed antibiotics - lasix today - monitor urine output, creatinine - O2 to keep SpO2 >90% - HD per renal - aspiration precautions - enteral feeds - DVT prophylaxis - continue discussions regarding goals of care, advanced directives - continue ICU monitoring
[2020-02-04] MEDS ORDERED: DEXTROSE 50%-WATER 25 GM/50 ML DISP.SYRIN ONE (11:36)
[2020-02-04] MEDS ORDERED: DEXTROSE 50%-WATER - 25 GM/50 ML VIAL IVPUSH ONE (11:40)
[2020-02-04] MEDS ORDERED: FUROSEMIDE 40 MG/4 ML INJECTABLE VIAL IVPUSH ONE (11:50)
--- NOTE | 2020-02-04 11:58 | PN ---
Physical Exam: SUBJECTIVE: Patient seen and examined. No acute events overnight. Afebrile and asymptomatic. OBJECTIVE: Vital Signs Period Temp Pulse Resp BP Sys/Ramirez Pulse Ox Last 24 Hr 97.8 F-99 F 74-118 14-27 110-161/60-92 85-100 GENERAL: Minimal response to sternal rub. Awake but not alert or oriented HEENT: NCAT, LUNGS: Decreased lung sounds in the bases, worsening scattered rhonchi b/l. Crackles heard b/l HEART: Tachycardic. S1, S2 without murmur. ABDOMEN: Soft, nondistended, bowel sounds present. Peg tube in place and is dry. EXTREMITIES: warm, well-perfused, 2+ pitting edema in b/l lower and upper extremity. Right foot appears cold SKIN: Warm, dry Laboratory Results - last 24 hr 02/01/20 02/02/20 02/02/20 11:10 19:35 20:30 WBC RBC Hgb Hct MCV MCH MCHC RDW Plt Count MPV Absolute Neuts (auto) Neutrophils % Lymphocytes % Monocytes % Eosinophils % Basophils % Nucleated RBC % Haptoglobin 246 Sodium Potassium Chloride Carbon Dioxide Anion Gap BUN Creatinine Est GFR (CKD-EPI)AfAm Est GFR (CKD-EPI)NonAf POC Glucometer Random Glucose Calcium Phosphorus Magnesium Total Bilirubin AST ALT Alkaline Phosphatase LD Total Creatine Kinase Troponin I Total Protein Albumin Blood Type O POSITIVE Antibody Screen Negative Crossmatch See Detail See Detail 02/03/20 02/03/20 02/03/20 09:00 10:30 15:19 WBC 10.6 H RBC 2.49 L Hgb 7.7 L Hct 23.0 L MCV 92.1 MCH 30.8 MCHC 33.4 RDW 19.5 H Plt Count 398 MPV 8.7 Absolute Neuts (auto) 9.2 H Neutrophils % 86.7 H Lymphocytes % 7.2 L D Monocytes % 5.7 Eosinophils % 0.2 Basophils % 0.2 Nucleated RBC % 0 Haptoglobin Sodium 141 Potassium 3.5 Chloride 104 Carbon Dioxide 31 Anion Gap 7 L BUN 23.8 H Creatinine 2.8 H Est GFR (CKD-EPI)AfAm 18.25 Est GFR (CKD-EPI)NonAf 15.75 POC Glucometer 115 Random Glucose 151 H Calcium 7.8 L Phosphorus 3.3 Magnesium 1.8 Total Bilirubin 0.3 AST 32 ALT 14 Alkaline Phosphatase 140 H LD Total 368 H Creatine Kinase 61 Troponin I 5.21 H* Total Protein 5.2 L Albumin 1.3 L Blood Type Antibody Screen Crossmatch 02/03/20 02/03/20 02/04/20 23:32 23:40 05:00 WBC 13.1 H RBC 3.06 L Hgb 9.3 L Hct 27.7 L D MCV 90.5 MCH 30.4 MCHC 33.6 RDW 18.6 H Plt Count 372 MPV 8.5 Absolute Neuts (auto) 11.3 H Neutrophils % 86.4 H Lymphocytes % 6.5 L Monocytes % 6.3 Eosinophils % 0.5 D Basophils % 0.3 Nucleated RBC % 0 Haptoglobin Sodium Potassium Chloride Carbon Dioxide Anion Gap BUN Creatinine Est GFR (CKD-EPI)AfAm Est GFR (CKD-EPI)NonAf POC Glucometer 120 Random Glucose Calcium Phosphorus Magnesium Total Bilirubin AST ALT Alkaline Phosphatase LD Total Creatine Kinase Troponin I 5.40 H* Total Protein Albumin Blood Type Antibody Screen Crossmatch 02/04/20 02/04/20 02/04/20 05:00 05:39 11:31 WBC RBC Hgb Hct MCV MCH MCHC RDW Plt Count MPV Absolute Neuts (auto) Neutrophils % Lymphocytes % Monocytes % Eosinophils % Basophils % Nucleated RBC % Haptoglobin Sodium 141 Potassium 3.3 L Chloride 105 Carbon Dioxide 29 Anion Gap 7 L BUN 14.9 Creatinine 2.0 H Est GFR (CKD-EPI)AfAm 27.41 Est GFR (CKD-EPI)NonAf 23.65 POC Glucometer 106 67 Random Glucose 109 H Calcium 7.9 L Phosphorus 2.9 Magnesium 1.8 Total Bilirubin 0.5 AST 28 ALT 13 Alkaline Phosphatase 163 H LD Total Creatine Kinase Troponin I 5.59 H* Total Protein 5.2 L Albumin 1.3 L Blood Type Antibody Screen Crossmatch Active Medications Generic Name Dose Route Start Last Admin Trade Name Freq PRN Reason Stop Dose Admin Chlorhexidine Gluconate 1 applic 02/03/20 22:00 02/03/20 21:59 Hibiclens For Decolonization - TP 1 applic HS JOSE Administration Collagenase 1 applic 02/03/20 10:00 02/03/20 10:52 Santyl - TP 1 applic DAILY JOSE Administration Protocol Dextrose 25 gm 02/04/20 11:40 D50w (Vial) - IVPUSH 02/04/20 11:41 NOW ONE Sodium Chloride 250 mls @ 3,000 mls/hr 02/03/20 09:18 Normal Saline - IV 02/04/20 09:19 PRN PRN Hypotension during Dialysis Insulin Aspart 1 vial 02/03/20 17:30 02/04/20 05:53 Novolog Vial Sliding Scale - SQ Not Given Q6HPO [facility] Protocol Metoprolol Tartrate 12.5 mg 02/03/20 22:00 02/04/20 10:06 Lopressor - PO 12.5 mg BID JOSE Administration Mupirocin 1 applic 02/03/20 10:00 02/04/20 10:06 Bactroban Ointment (For Decolonization) - NS 02/08/20 09:59 1 applic BID JOSE Administration Pantoprazole Sodium 40 mg 02/03/20 10:00 02/04/20 10:07 Protonix Iv IVPUSH 40 mg DAILY JOSE Administration ASSESSMENT/PLAN: 74 year old female w/ PMH of CVA, ESRD on HD, HTN, HLD, DM, sacral ulcer admitted to ICU for acute hypoxic respiratory failure likely 2/2 to aspiration pna and bleeding Peg tube site. Neuro CVA history Off sedation Hold Plavix due to bleeding. Cardiac Held home labetolol, valsartan, amlodipine, given soft bp. Held lipitor, given transaminitis Monitor and maintain MAP>65 Monitor and transfuse to keep Hb>8 s/p 1 uPRB Cardio consulted. Troponin trending. Daily EKG, trend trops. cont 12.5 mg metoprolol BID. Heme/Onc consulted. Pulmonary Acute hypoxic respiratory failure Aspiration PNA c/w Chest physiotherapy and positional therapy c/w suction of nasal/oropharynx GI s/p PEG placement Transaminitis GI recom cont PEG use for feeds Will confirm with PMD before starting feeds -2 sutures placed on each side of peg tube on 01/30. Renal Hypokalemia ESRD on HD, next dialysis in 2 days Nephro consulted. Continue current management. Received dialysis today (02/02). repleted potassium No daily labs. Labs to be drawn during dialysis. ID Aspiration PNA Sacral ulcer Continue application Collegenase (Santyl) ID consulted. COVID negative Endocrine Hypoglycemia Diabetes mellitus Hypokalemia, resolved ISS + BGM 1 amp D5 given FEN No standing fluids follow electrolytes and replete as needed Feeds at 35 (nepro) on hold, will confirm the pmd Px DVT: SCD b/l GI: PPI LTD NGT 01/26 Family discussion/code status: Goals of care discussion ongoing. Palliative care saw pt, discussed GOC with family. FULL CODE. ATTENDING PHYSICIAN STATEMENT I saw and evaluated the patient. I reviewed the resident's note and discussed the case with the resident. I agree with the resident's findings and plan as documented. SUBJECTIVE: OBJECTIVE: ASSESSMENT AND PLAN:
[2020-02-04] MEDS: COLLAGENASE CLOSTRIDIUM HIST. 30 GRAMS TUBE TP SCH (13:00)
--- NOTE | 2020-02-04 15:35 | PN ---
Progress Note, Physician History of Present Illness: 74 year old female with medical history of ESRD (on HD), hypertension, DMII, GERD, HTN, HL, aphasia and stroke 3 months ago, admitted to ICU fro ED for progressive weakness and reported unresponsiveness. Head CT showed (01/13) right pareital, occipital and temporal lobe suggestive of acute CVA no acute intracranial bleed ; Prolonged ICU course complicated by Acxute worsening of chronic anemia, likely from stomal bleed. Elevated TNIs most likely anemia induced ischemia. - Current Medication List Current Medications: Active Medications Chlorhexidine Gluconate (Hibiclens For Decolonization -) 1 applic TP HS [facility] Last Admin: 02/03/20 21:59 Dose: 1 applic Documented by: Collagenase (Santyl -) 1 applic TP DAILY [facility]; Protocol Last Admin: 02/03/20 10:52 Dose: 1 applic Documented by: Sodium Chloride (Normal Saline -) 250 mls @ 3,000 mls/hr IV PRN PRN PRN Reason: Hypotension during Dialysis Stop: 02/04/20 09:19 Insulin Aspart (Novolog Vial Sliding Scale -) 1 vial SQ Q6HPO [facility]; Protocol Last Admin: 02/04/20 12:00 Dose: Not Given Documented by: Metoprolol Tartrate (Lopressor -) 12.5 mg PO BID [facility] Last Admin: 02/04/20 10:06 Dose: 12.5 mg Documented by: Mupirocin (Bactroban Ointment (For Decolonization) -) 1 applic NS BID [facility] Stop: 02/08/20 09:59 Last Admin: 02/04/20 10:06 Dose: 1 applic Documented by: Pantoprazole Sodium (Protonix Iv) 40 mg IVPUSH DAILY [facility] Last Admin: 02/04/20 10:07 Dose: 40 mg Documented by: - Objective Vital Signs: Vital Signs Temperature 98.6 F 02/04/20 14:00 Pulse Rate 95 H 02/04/20 14:00 Respiratory Rate 14 02/04/20 14:00 Blood Pressure 146/75 02/04/20 14:00 O2 Sat by Pulse Oximetry (%) 99 02/04/20 14:00 Eyes: Yes: WNL, Conjunctiva Clear, EOM Intact HENT: Yes: WNL, Atraumatic, Normocephalic Neck: Yes: WNL, Supple, Trachea Midline Cardiovascular: Yes: WNL, Regular Rate and Rhythm Respiratory: Yes: WNL, Regular, CTA Bilaterally Gastrointestinal: Yes: WNL, Normal Bowel Sounds Genitourinary: Yes: WNL Musculoskeletal: Yes: WNL Extremities: Yes: WNL Edema: No Integumentary: Yes: WNL Labs: CBC, BMP 02/04/20 05:00 02/04/20 05:00 INR, PTT INR 1.56 (0.83-1.09) H 02/02/20 20:30 Fibrinogen > 500.0 mg/dL (238-498) H 02/02/20 20:30 Problem List - Problems (1) Altered mental status Code(s): R41.82 - ALTERED MENTAL STATUS, UNSPECIFIED (2) Anemia Code(s): D64.9 - ANEMIA, UNSPECIFIED (3) Lactic acidosis Code(s): E87.2 - ACIDOSIS (4) Pneumonia, aspiration Code(s): J69.0 - PNEUMONITIS DUE TO INHALATION OF FOOD AND VOMIT (5) Stroke Code(s): I63.9 - CEREBRAL INFARCTION, UNSPECIFIED (6) Clotted dialysis access Code(s): T82.49XA - OTH COMPLICATION OF VASCULAR DIALYSIS CATHETER, INIT ENCNTR (7) Diabetes Code(s): E11.9 - TYPE 2 DIABETES MELLITUS WITHOUT COMPLICATIONS (8) ESRD on dialysis Code(s): N18.6 - END STAGE RENAL DISEASE; Z99.2 - DEPENDENCE ON RENAL DIALYSIS (9) Hypertension Code(s): I10 - ESSENTIAL (PRIMARY) HYPERTENSION (10) SOB (shortness of breath) Code(s): R06.02 - SHORTNESS OF BREATH Assessment/Plan Acute right temporoparietal infarct -- Large MCA aspiration pneumonia ESRD -HD Respiratory failure severe Anemia New elevated TNIs - most likely due to demand ischemia due to severe anemia. New LBBB 7-25-20 s/p PEG Plan; serial TNIs serial EKGs keep HCT around 30% Increase Metoprolol to 25 BID ASA if cleared by Neuro and GI ECHO Further cardiac w/u will depend on mental status recovery cc time spent 36 min
[2020-02-04] MEDS: CHLORHEXIDINE GLUCONATE 4% CLEANSER FOR DECOLONIZATION TP SCH (21:07)
[2020-02-05] MEDS ORDERED: ACETAMINOPHEN 325 MG TABLET (FP) PO PRN (00:08)
[2020-02-05] MEDS: INSULIN SLIDING SCALE (NOVOLOG) 1 VIAL SQ SCH ×4 (00:16→17:44)
[2020-02-05] MEDS: ACETAMINOPHEN 650 MG/20.3 ML ORAL SOLUTION (CUPS) PO PRN (01:00)
[2020-02-05] MEDS ORDERED: METOPROLOL TARTRATE 5 MG/5 ML VIAL IVPUSH ONE (02:12)
[2020-02-05] MEDS ORDERED: METOPROLOL TARTRATE 5 MG/5 ML VIAL ONE (02:15)
[2020-02-05] MEDS ORDERED: amLODIPine BESYLATE 10 MG TABLET (FP) PO SCH (06:27)
[2020-02-05] MEDS ORDERED: guaiFENesin 200 MG/10 ML 10 ML UNIT-DOSE CUPS PO PRN (06:39)
[2020-02-05] MEDS: amLODIPine BESYLATE 10 MG TABLET (FP) NGT SCH (06:43)
[2020-02-05 06:54] LABS: HEMATOCRIT 27.3 % (32.4-45.2); HEMOGLOBIN 8.9 GM/dL (10.7-15.3); MCH 29.9 pg (25.7-33.7); MCHC 32.6 g/dl (32.0-36.0); MEAN CELL VOLUME 91.8 fl (80-96); MEAN PLT VOLUME 8.2 fl (7.5-11.1); PLATELET COUNT 308 K/MM3 (134-434); RBC 2.97 M/mm3 (3.60-5.2); RDW 18.6 % (11.6-15.6)
--- NOTE | 2020-02-05 07:07 | PN ---
Physical Exam: SUBJECTIVE: Patient seen and examined. No acute events overnight. Pt remains minimally responsive. OBJECTIVE: Vital Signs Period Temp Pulse Resp BP Sys/Ramirez Pulse Ox Last 24 Hr 97.8 F-98.7 F 70-102 11-18 140-159/70-86 96-100 GENERAL: Opens eyes spontaneously, but remains minimally responsive. Does not follow commands. HEENT: NCAT, pupils sluggish to light. LUNGS: Decreased lung sounds in the bases, less rhonchi b/l. HEART: Regular rate and rhythm. S1, S2 without murmur. ABDOMEN: Soft, nondistended, bowel sounds present. Peg tube in place, without bleeding. EXTREMITIES: warm, well-perfused, 2+ pitting edema in b/l lower extremities SKIN: Warm, dry Laboratory Last Values WBC 15.0 K/mm3 (4.0-10.0) H 02/05/20 06:00 RBC 2.97 M/mm3 (3.60-5.2) L 02/05/20 06:00 Hgb 8.9 GM/dL (10.7-15.3) L 02/05/20 06:00 Hct 27.3 % (32.4-45.2) L 02/05/20 06:00 MCV 91.8 fl (80-96) 02/05/20 06:00 MCH 29.9 pg (25.7-33.7) 02/05/20 06:00 MCHC 32.6 g/dl (32.0-36.0) 02/05/20 06:00 RDW 18.6 % (11.6-15.6) H 02/05/20 06:00 Plt Count 308 K/MM3 (134-434) 02/05/20 06:00 MPV 8.2 fl (7.5-11.1) 02/05/20 06:00 Absolute Neuts (auto) 11.3 K/mm3 (1.5-8.0) H 02/04/20 05:00 Total Counted 100 01/15/20 08:40 Neutrophils % 86.4 % (42.8-82.8) H 02/04/20 05:00 Neutrophils % (Manual) 79.0 % (42.8-82.8) 01/15/20 08:40 Band Neutrophils % 2.0 % 01/15/20 08:40 Lymphocytes % 6.5 % (8-40) L 02/04/20 05:00 Lymphocytes % (Manual) 13.0 % (8-40) 01/15/20 08:40 Monocytes % 6.3 % (3.8-10.2) 02/04/20 05:00 Monocytes % (Manual) 4 % (3.8-10.2) 01/15/20 08:40 Eosinophils % 0.5 % (0-4.5) D 02/04/20 05:00 Eosinophils % (Manual) 0.0 % (0-4.5) 01/15/20 08:40 Basophils % 0.3 % (0-2.0) 02/04/20 05:00 Basophils % (Manual) 1.0 % (0-2.0) 01/15/20 08:40 Nucleated RBC % 0 % (0-0) 02/04/20 05:00 Metamyelocytes 1 % (0-2) 01/15/20 08:40 Hypochromia 0 01/18/20 06:10 Platelet Estimate Increased 01/31/20 06:10 Platelet Comment No clumping noted 01/15/20 08:40 Platelet Comment Large platelets 01/15/20 08:40 Polychromasia 1+ 01/18/20 06:10 Poikilocytosis 1+ 01/18/20 06:10 Anisocytosis 1+ 01/18/20 06:10 Microcytosis 1+ 01/18/20 06:10 Macrocytosis 0 01/18/20 06:10 [place] Cells 1+ 01/18/20 06:10 Haptoglobin 246 mg/dL (42-346) 02/02/20 20:30 PT with INR 18.50 SEC (9.7-13.0) H 02/02/20 20:30 INR 1.56 (0.83-1.09) H 02/02/20 20:30 PTT (Actin FS) 39.3 SECONDS (25.2-36.5) H 02/02/20 20:30 Fibrinogen 448.0 mg/dL (238-498) 02/05/20 06:00 D-Dimer 1385 ng/ml (0-500) H 02/02/20 20:30 Anticoagulation Therapy No Result Required. 02/01/20 06:48 Puncture Site No Result Required. 02/01/20 06:48 Patient Temperature No Result Required. 02/01/20 06:48 ABG pH 7.467 (7.350-7.450) H 02/01/20 06:48 ABG pCO2 39.10 mmHg (35-45) 02/01/20 06:48 ABG pO2 73.5 mmHg (80-100) L 02/01/20 06:48 ABG HCO3 27.6 mmol/L (22-27) H 02/01/20 06:48 ABG O2 Sat (Measured) 95.6 mmHg (95-98) 02/01/20 06:48 ABG O2 Content No Result Required. 02/01/20 06:48 ABG Base Excess 3.7 mmol/L (-2-2) H 02/01/20 06:48 Sai Test No Result Required. 02/01/20 06:48 VBG pH 7.309 (7.310-7.410) L 01/14/20 20:30 POC VBG pCO2 50.0 mmHg (38-52) 01/14/20 20:30 POC VBG pO2 68.5 mmHg (28-48) H 01/14/20 20:30 VBG HCO3 24.6 mmol/L (23-29) 01/14/20 20:30 VBG O2 Sat (Rayray) 91.9 % (70-80) H 01/14/20 20:30 VBG Base Excess -2.2 mmol/L (-2-2) L 01/14/20 20:30 Patient On Oxygen Yes 02/01/20 06:48 O2 Delivery Device Nc 02/01/20 06:48 Oxygen Flow Rate 4l 02/01/20 06:48 Vent Mode No Result Required. 02/01/20 06:48 Vent Rate No Result Required. 02/01/20 06:48 Mechanical Rate No Result Required. 02/01/20 06:48 PEEP No Result Required. 02/01/20 06:48 Pressure Support Vent No Result Required. 02/01/20 06:48 Sodium 144 mmol/L (136-145) 02/05/20 06:00 Potassium 3.1 mmol/L (3.5-5.1) L 02/05/20 06:00 Chloride 106 mmol/L (98-107) 02/05/20 06:00 Carbon Dioxide 28 mmol/L (21-32) 02/05/20 06:00 Anion Gap 11 MMOL/L (8-16) 02/05/20 06:00 BUN 20.6 mg/dL (7-18) H 02/05/20 06:00 Creatinine 2.7 mg/dL (0.55-1.3) H 02/05/20 06:00 Est GFR (CKD-EPI)AfAm 19.07 02/05/20 06:00 Est GFR (CKD-EPI)NonAf 16.46 02/05/20 06:00 POC Glucometer 129 UNITS (80-120) 02/05/20 12:02 Random Glucose 141 mg/dL (74-106) H 02/05/20 06:00 Lactic Acid 1.9 mmol/L (0.4-2.0) 01/26/20 23:40 Calcium 7.7 mg/dL (8.5-10.1) L 02/05/20 06:00 Phosphorus 2.9 mg/dL (2.5-4.9) 02/04/20 05:00 Magnesium 1.8 mg/dL (1.8-2.4) 02/04/20 05:00 Iron 10 ug/dL (50-175) L 02/02/20 20:30 TIBC 53 ug/dL (250-450) L 02/02/20 20:30 Iron Saturation 18 % (17.5-39) 02/02/20 20:30 Unsaturated IBC 43 ug/dL (200-275) L 02/02/20 20:30 Ferritin 3483.5 ng/ml (8-388) H 02/02/20 20:30 Total Bilirubin 0.5 mg/dL (0.2-1) 02/04/20 05:00 Direct Bilirubin 0.1 mg/dL (0.0-0.2) 01/28/20 05:40 AST 28 U/L (15-37) 02/04/20 05:00 ALT 13 U/L (13-61) 02/04/20 05:00 Alkaline Phosphatase 163 U/L (45-117) H 02/04/20 05:00 LD Total 368 U/L (84-246) H 02/03/20 10:30 Creatine Kinase 61 U/L (26-192) 02/03/20 10:30 Troponin I 5.26 ng/ml (0.00-0.05) H* 02/05/20 06:00 Total Protein 5.2 g/dl (6.4-8.2) L 02/04/20 05:00 Albumin 1.3 g/dl (3.4-5.0) L 02/04/20 05:00 Beta-Hydroxybutyrate 8.7 mg/dL (0.2-2.8) H 01/15/20 08:40 TSH 1.32 uIU/ml (0.358-3.74) 01/14/20 20:10 Stool Occult Blood Positive (NEGATIVE) 02/02/20 21:00 COVID-19 ([place]) Not detected (Not Detected) 01/15/20 00:30 Hep Bs Antigen Negative (Negative) 01/15/20 14:50 Hep C Ab Diagnostic 0.1 s/co ratio (0.0-0.9) 01/15/20 14:50 Blood Type O POSITIVE 02/01/20 11:10 Antibody Screen Negative 02/01/20 11:10 Direct Antiglob Test Positive (NEGATIVE) 02/02/20 19:35 Crossmatch See Detail 02/02/20 19:35 Active Medications Acetaminophen (Tylenol Oral Solution -) 650 mg PO Q6H PRN PRN Reason: PAIN LEVEL 4 - 6 Last Admin: 02/05/20 01:00 Dose: 650 mg Documented by: Amlodipine Besylate (Norvasc -) 10 mg NGT DAILY [facility] Last Admin: 02/05/20 06:43 Dose: 10 mg Documented by: Chlorhexidine Gluconate (Hibiclens For Decolonization -) 1 applic TP HS [facility] Last Admin: 02/04/20 21:07 Dose: 1 applic Documented by: Collagenase (Santyl -) 1 applic TP DAILY [facility]; Protocol Last Admin: 02/04/20 13:00 Dose: 1 applic Documented by: Guaifenesin (Robitussin -) 10 ml PO Q4H PRN PRN Reason: COUGH Sodium Chloride (Normal Saline -) 250 mls @ 3,000 mls/hr IV PRN PRN PRN Reason: Hypotension during Dialysis Stop: 02/04/20 09:19 Potassium Chloride (Potassium Chloride 10 Meq Premix Ivpb -) 10 meq in 100 mls @ 100 mls/hr IVPB Q60M [facility] Stop: 02/05/20 11:59 Last Admin: 02/05/20 08:19 Dose: 100 mls/hr Documented by: Insulin Aspart (Novolog Vial Sliding Scale -) 1 vial SQ Q6HPO [facility]; Protocol Last Admin: 02/05/20 06:20 Dose: Not Given Documented by: Metoprolol Tartrate (Lopressor -) 25 mg PO BID [facility] Last Admin: 02/04/20 21:07 Dose: 25 mg Documented by: Mupirocin (Bactroban Ointment (For Decolonization) -) 1 applic NS BID [facility] Stop: 02/08/20 09:59 Last Admin: 02/04/20 21:07 Dose: 1 applic Documented by: Pantoprazole Sodium (Protonix Iv) 40 mg IVPUSH DAILY [facility] Last Admin: 02/04/20 10:07 Dose: 40 mg Documented by: ASSESSMENT/PLAN: 74 year old female w/ PMH of CVA, ESRD on HD, HTN, HLD, DM, sacral ulcer admitted to ICU for acute hypoxic respiratory failure. Pt was on 4S with SpO2 ~70 with increased work of breathing. Thus, rapid response called. Pt was intubated and admitted to ICU for acute hypoxic respiratory failure. Family was notified of pt's condition and rescinded DNR. Pt tolerated CPAP mode and was extubated 01/29. GOC discussion ongoing. Pt received Peg tube 01/30. Overnight, pt had bleeding at the Peg tube site, despite compression for 15 minutes and surgiceal. 2 additional stitches and surgiceal were placed. Bleeding stopped. Sutures removed 02/04. Peg tube site remained dry and not bleeding. CT abd done due to investigation of dropping H/H, however, resulted in extravasation of contrast of L arm. Elevated coags debbie concern for DIC. Tele monitor showed rhythm changes, troponin elevated (5.2). EKG suggested NSTEMI, however, holding AC due to persistently dropping H/H. Neuro CVA history Bihemispheric stroke with minimal responsiveness -Off sedation, minimally responsive at baseline. -assess mental status. -CT head showed moderate size subacute infarct in L frontal lobe. Large R MCA subacute infarct w/ suggestion of interval minimal hemorrhagic transformation seen in R frontal lobe. -Neuro consulted. Recommendations appreciated. -Hold Plavix due to bleeding. Cardiac NSTEMI PMH HTN PMH HLD -Held home labetolol, valsartan, amlodipine, given soft bp. -Held lipitor, given transaminitis -Monitor and maintain MAP>65 -Monitor H/H and transfuse to keep Hb>8 -Cardio consulted. Troponin 5.2. Recommended daily EKG, trend trops. Continue 25 mg metoprolol BID. Lasix today. Echo. Further cardiac workup depending on mental status. Keep Hct 30%. -Heme/Onc consulted. -Tele monitor showed change. EKG showed L bundle branch block. Troponin 5.2. Pulmonary Atelectasis Acute hypoxic respiratory failure Aspiration PNA -CXR on 02/03 - improved, better aeration of L lung. -Placed on CPAP mode for 20 minutes, tolerated well. Saturated 100%. RSBI 67. Extubated 01/29. On 2L NC. Saturating at 100%. -c/w Chest physiotherapy and positional therapy -c/w suction of nasal/oropharynx -Spoke to respiratory in regards to curved suction to reach mucus plug in L bronchus, however, respiratory therapist and railroad car cleaning supervisor stated there is no "closed-loop" suction to use for this pt and that the curved suction is only compatible to pt's on a ventilator. -aspiration precautions GI s/p PEG placement Transaminitis -Peg tube site no longer bleeding. Renal Hypokalemia, improved ESRD on HD -Nephro consulted. Continue current management. Received dialysis (02/02). Next HD 02/05. -monitor I/O's ID Aspiration PNA Sacral ulcer -Discontinued Zosyn -Continue application Collegenase (Santyl) -ID consulted. Recommended discontinue zosyn and reculture off for current temperature and increased WBC. -COVID negative Endocrine Hypoglycemia, improved Diabetes mellitus Hypokalemia, resolved -ISS + BGM FEN -No standing fluids -follow electrolytes and replete as needed -Feeds at 35 (nepro) as per dietary Px -DVT: SCD b/l -GI: PPI LTD -Peg 01/30 Family discussion/code status: Goals of care discussion ongoing. Palliative care saw pt, discussed GOC with family. FULL CODE. Dispo: Continue to monitor in ICU Visit type - Emergency Visit Emergency Visit: Yes ED Registration Date: 01/15/20 Care time: The patient presented to the Emergency Department on the above date and was hospitalized for further evaluation of their emergent condition. - New Patient This patient is new to me today: No - Critical Care Critical Care patient: Yes Total Critical Care Time (in minutes): 39 Critical Care Statement: The care of this patient involved high complexity decision making to prevent further life threatening deterioration of the patient's condition and/or to evaluate & treat vital organ system(s) failure or risk of failure. - Medication Review Med list reviewed for High Risk Meds patients 65 and older: Yes ATTENDING PHYSICIAN STATEMENT I saw and evaluated the patient. I reviewed the resident's note and discussed the case with the resident. I agree with the resident's findings and plan as documented. SUBJECTIVE: OBJECTIVE: ASSESSMENT AND PLAN:
[2020-02-05 07:14] LABS: BLOOD UREA NITROGEN 20.6 mg/dL (7-18); CALCIUM 7.7 mg/dL (8.5-10.1); CREATININE 2.7 mg/dL (0.55-1.3); POTASSIUM 3.1 mmol/L (3.5-5.1)
[2020-02-05] MEDS: KCL 10 MEQ IVPB 10 MEQ/100 ML INFUS.BAG IVPB SCH ×3 (08:19→10:40)
--- NOTE | 2020-02-05 08:40 | PN ---
Progress Note, Physician History of Present Illness: 74 year old female with medical history of ESRD (on HD), hypertension, DMII, GERD, HTN, HL, aphasia and stroke 3 months ago, admitted to ICU fro ED for progressive weakness and reported unresponsiveness. Head CT showed (01/13) right pareital, occipital and temporal lobe suggestive of acute CVA no acute intracranial bleed ; Prolonged ICU course complicated by Acxute worsening of chronic anemia, likely from stomal bleed. Elevated TNIs most likely anemia induced ischemia. - Current Medication List Current Medications: Active Medications Acetaminophen (Tylenol Oral Solution -) 650 mg PO Q6H PRN PRN Reason: PAIN LEVEL 4 - 6 Last Admin: 02/05/20 01:00 Dose: 650 mg Documented by: Amlodipine Besylate (Norvasc -) 10 mg NGT DAILY [facility] Last Admin: 02/05/20 06:43 Dose: 10 mg Documented by: Chlorhexidine Gluconate (Hibiclens For Decolonization -) 1 applic TP HS [facility] Last Admin: 02/04/20 21:07 Dose: 1 applic Documented by: Collagenase (Santyl -) 1 applic TP DAILY [facility]; Protocol Last Admin: 02/04/20 13:00 Dose: 1 applic Documented by: Guaifenesin (Robitussin -) 10 ml PO Q4H PRN PRN Reason: COUGH Sodium Chloride (Normal Saline -) 250 mls @ 3,000 mls/hr IV PRN PRN PRN Reason: Hypotension during Dialysis Stop: 02/04/20 09:19 Potassium Chloride (Potassium Chloride 10 Meq Premix Ivpb -) 10 meq in 100 mls @ 100 mls/hr IVPB Q60M [facility] Stop: 02/05/20 11:59 Last Admin: 02/05/20 08:19 Dose: 100 mls/hr Documented by: Insulin Aspart (Novolog Vial Sliding Scale -) 1 vial SQ Q6HPO [facility]; Protocol Last Admin: 02/05/20 06:20 Dose: Not Given Documented by: Metoprolol Tartrate (Lopressor -) 25 mg PO BID [facility] Last Admin: 02/04/20 21:07 Dose: 25 mg Documented by: Mupirocin (Bactroban Ointment (For Decolonization) -) 1 applic NS BID [facility] Stop: 02/08/20 09:59 Last Admin: 02/04/20 21:07 Dose: 1 applic Documented by: Pantoprazole Sodium (Protonix Iv) 40 mg IVPUSH DAILY [facility] Last Admin: 02/04/20 10:07 Dose: 40 mg Documented by: - Objective Vital Signs: Vital Signs Temperature 97.8 F 02/05/20 06:00 Pulse Rate 88 02/05/20 06:00 Respiratory Rate 11 02/05/20 06:00 Blood Pressure 157/77 02/05/20 06:00 O2 Sat by Pulse Oximetry (%) 100 02/05/20 06:00 Eyes: Yes: WNL, Conjunctiva Clear, EOM Intact HENT: Yes: WNL, Atraumatic, Normocephalic Neck: Yes: WNL, Supple, Trachea Midline Cardiovascular: Yes: WNL, Regular Rate and Rhythm Respiratory: Yes: WNL, Regular, CTA Bilaterally Gastrointestinal: Yes: WNL, Normal Bowel Sounds Genitourinary: Yes: WNL Musculoskeletal: Yes: WNL Extremities: Yes: WNL Edema: No Integumentary: Yes: WNL Labs: CBC, BMP 02/05/20 06:00 02/05/20 06:00 INR, PTT INR 1.56 (0.83-1.09) H 02/02/20 20:30 Fibrinogen 448.0 mg/dL (238-498) 02/05/20 06:00 Problem List - Problems (1) Altered mental status Code(s): R41.82 - ALTERED MENTAL STATUS, UNSPECIFIED (2) Anemia Code(s): D64.9 - ANEMIA, UNSPECIFIED (3) Lactic acidosis Code(s): E87.2 - ACIDOSIS (4) Pneumonia, aspiration Code(s): J69.0 - PNEUMONITIS DUE TO INHALATION OF FOOD AND VOMIT (5) Stroke Code(s): I63.9 - CEREBRAL INFARCTION, UNSPECIFIED (6) Clotted dialysis access Code(s): T82.49XA - OTH COMPLICATION OF VASCULAR DIALYSIS CATHETER, INIT ENCNTR (7) Diabetes Code(s): E11.9 - TYPE 2 DIABETES MELLITUS WITHOUT COMPLICATIONS (8) ESRD on dialysis Code(s): N18.6 - END STAGE RENAL DISEASE; Z99.2 - DEPENDENCE ON RENAL DIALYSIS (9) Hypertension Code(s): I10 - ESSENTIAL (PRIMARY) HYPERTENSION (10) SOB (shortness of breath) Code(s): R06.02 - SHORTNESS OF BREATH Assessment/Plan Acute right temporoparietal infarct -- Large MCA aspiration pneumonia ESRD -HD Respiratory failure severe Anemia New elevated TNIs - most likely due to demand ischemia due to severe anemia. New LBBB 7-25-20 s/p PEG Nl EF Moderater MR moderate PHT Plan; serial TNIs serial EKGs keep HCT around 30% Cont Metoprolol to 25 BID ASA if cleared by Neuro and GI Further cardiac w/u will depend on mental status recovery cc time spent 36 min
[2020-02-05] MEDS: PANTOPRAZOLE SODIUM 40 MG VIAL IVPUSH SCH (09:21)
[2020-02-05] MEDS: MUPIROCIN 2% TOPICAL OINTMENT FOR DECOLONIZATION NS SCH ×2 (09:36→21:17)
[2020-02-05] MEDS: METOPROLOL TARTRATE 25 MG TABLET (FP) PO SCH ×2 (09:36→21:17)
--- NOTE | 2020-02-05 09:59 | EKG ---
Test Reason : Blood Pressure : / mmHG Vent. Rate : 093 BPM Atrial Rate : 093 BPM P-R Int : 156 ms QRS Dur : 142 ms QT Int : 432 ms P-R-T Axes : 046 016 192 degrees QTc Int : 537 ms NORMAL SINUS RHYTHM LEFT BUNDLE BRANCH BLOCK ABNORMAL ECG WHEN COMPARED WITH ECG OF 03-FEB-2020 14:50, NO SIGNIFICANT CHANGE WAS FOUND Confirmed by Olga Lidia Brennan ([id number]) on 02/05/2020 9:58:55 AM Referred By: KATHY PALACIO DR Confirmed By:Olga Lidia Brennan
[2020-02-05] MEDS ORDERED: guaiFENesin/D-METHORPHAN TAB.ER.12H PO SCH (10:00)
--- NOTE | 2020-02-05 10:01 | EKG ---
Test Reason : Blood Pressure : / mmHG Vent. Rate : 093 BPM Atrial Rate : 093 BPM P-R Int : 158 ms QRS Dur : 138 ms QT Int : 418 ms P-R-T Axes : 060 037 203 degrees QTc Int : 519 ms NORMAL SINUS RHYTHM LEFT BUNDLE BRANCH BLOCK ABNORMAL ECG WHEN COMPARED WITH ECG OF 04-FEB-2020 10:27, NO SIGNIFICANT CHANGE WAS FOUND Confirmed by Olga Lidia Brennan ([id number]) on 02/05/2020 10:01:41 AM Referred By: Confirmed By:Olga Lidia Brennan
--- NOTE | 2020-02-05 10:08 | EKG ---
Test Reason : Blood Pressure : / mmHG Vent. Rate : 111 BPM Atrial Rate : 111 BPM P-R Int : 168 ms QRS Dur : 128 ms QT Int : 372 ms P-R-T Axes : 068 053 186 degrees QTc Int : 505 ms SINUS TACHYCARDIA LEFT BUNDLE BRANCH BLOCK ABNORMAL ECG WHEN COMPARED WITH ECG OF 27-JAN-2020 10:07, VENT. RATE HAS INCREASED BY 38 BPM QUESTIONABLE CHANGE IN QRS AXIS T WAVE INVERSION NO LONGER EVIDENT IN ANTERIOR LEADS Confirmed by Olga Lidia Brennan ([id number]) on 02/05/2020 10:08:06 AM Referred By: Alma Rosa ODOM Confirmed By:Olga Lidia Brennan
--- NOTE | 2020-02-05 11:17 | PN ---
Progress Note (short form) - Note Progress Note: RENAL pt on telemetry she is unresponsive Last Vital Signs Temp Pulse Resp BP Pulse Ox 97.8 F 88 18 158/81 100 02/05/20 06:00 02/05/20 08:00 02/05/20 08:00 02/05/20 08:00 02/05/20 10:00 lungs clear cvs s1s2 rr +DAVE abd soft ext upper ext edema neuro unresponsive CBC, BMP 02/05/20 06:00 02/05/20 06:00 Current Medications Generic Name Dose Route Start Last Admin Trade Name Freq PRN Reason Stop Dose Admin Acetaminophen 650 mg 02/05/20 00:53 02/05/20 01:00 Tylenol Oral Solution - PO 650 mg Q6H PRN Administration PAIN LEVEL 4 - 6 Amlodipine Besylate 10 mg 02/05/20 06:45 02/05/20 06:43 Norvasc - NGT 10 mg DAILY JOSE Administration Chlorhexidine Gluconate 1 applic 02/03/20 22:00 02/04/20 21:07 Hibiclens For Decolonization - TP 1 applic HS [facility] Administration Collagenase 1 applic 02/03/20 10:00 02/04/20 13:00 Santyl - TP 1 applic DAILY [facility] Administration Protocol Guaifenesin 10 ml 02/05/20 06:39 Robitussin - PO Q4H PRN COUGH Sodium Chloride 250 mls @ 3,000 mls/hr 02/03/20 09:18 Normal Saline - IV 02/04/20 09:19 PRN PRN Hypotension during Dialysis Insulin Aspart 1 vial 02/03/20 17:30 02/05/20 06:20 Novolog Vial Sliding Scale - SQ Not Given Q6HPO [facility] Protocol Metoprolol Tartrate 25 mg 02/04/20 22:00 02/05/20 09:36 Lopressor - PO 25 mg BID [facility] Administration Mupirocin 1 applic 02/03/20 10:00 02/05/20 09:36 Bactroban Ointment (For Decolonization) - NS 02/08/20 09:59 1 applic BID [facility] Administration Pantoprazole Sodium 40 mg 02/03/20 10:00 02/05/20 09:21 Protonix Iv IVPUSH 40 mg DAILY [facility] Administration IMPRESSION esrd htn s/p cva x 2- unresponsive hypokalemia resolved covid 19 neg hypernatremia resolved PLAN GOC hd tomorrow replace rebecca WOODALL
[2020-02-05] MEDS: COLLAGENASE CLOSTRIDIUM HIST. 30 GRAMS TUBE TP SCH (12:00)
--- NOTE | 2020-02-05 12:20 | ECHO ---
Name: FRED BEAR Exam:Adult Echocardiogram Study Date: 02/05/2020 11:34 AM Age: 74 yrs Reason For Study: CHF Height: 65 in Weight: 96 lb BSA: 1.4 m2 MMode/2D Measurements & Calculations IVSd: 1.5 cm Ao root diam: 2.7 cm LVIDd: 3.1 cm LA dimension: 2.3 cm LVIDs: 2.3 cm LVPWd: 0.88 cm EDV(Teich): 38.4 ml LVOT diam: 2.0 cm ESV(Teich): 18.1 ml LAV (MOD-bp): 35.0 ml Doppler Measurements & Calculations MV E max keo: 106.0 cm/sec Ao V2 max: 155.3 cm/sec MV A max keo: 136.2 cm/sec Ao max P.7 mmHg MV E/A: 0.78 MV dec time: 0.08 sec PARUL(V,D): 1.2 cm2 LV V1 max P.4 mmHg MR max keo: 639.7 cm/sec LV V1 max: 60.1 cm/sec MR max P.2 mmHg TR max keo: 318.3 cm/sec PA V2 max: 141.2 cm/sec TR max P.7 mmHg PA max P.2 mmHg Med Peak E' Keo: 3.3 cm/sec PI Vmax: 177.8 cm/sec Med E/e': 32.5 Lat Peak E' Keo: 6.6 cm/sec Lat E/e': 16.0 Procedure Study Quality: Fair. Left Ventricle The left ventricular cavity is small. There is moderate concentric left ventricular hypertrophy. The left ventricular ejection fraction is normal. Ejection Fraction = 55-60%. The transmitral spectral Doppler flow pattern is suggestive of impaired LV relaxation. Right Ventricle The right ventricle is normal size. There is mild right ventricular hypertrophy. The right ventricula r systolic function is normal. Atria Normal left and right atrial size and function. Mitral Valve The mitral valve is grossly normal. There is moderate mitral regurgitation. Tricuspid Valve The tricuspid valve is not well visualized, but is grossly normal. There is mild tricuspid regurgitat ion. There is moderate pulmonary hypertension. Right ventricular systolic pressure is elevated at 50-60mmH g. Aortic Valve Mildly calcified. No hemodynamically significant valvular aortic stenosis. No aortic regurgitation is present. Pulmonic Valve The pulmonic valve is not well seen, but is grossly normal. Great Vessels The aortic root is normal size. Pericardium/Pleura There is no pericardial effusion. Interpretation Summary LV: Small size, mild-moderate LVH, normal systolic function, EF 55-60%, impaired relaxation RV; Normal size, mild RVH,normal systolic function Atria: Normal sizes MV: Moderate MR AV: Mildly calcified TV: Mild-moderate TR, PAP 55 mmHg,moderate pulmonary HTN. Olga Lidia Brennan 02/05/2020 12:20 PM
--- NOTE | 2020-02-05 12:55 | PN ---
Teaching Attending Note Name of Resident: Iván Antunez ATTENDING PHYSICIAN STATEMENT I saw and evaluated the patient. I reviewed the resident's note and discussed the case with the resident. I agree with the resident's findings and plan as documented. SUBJECTIVE: Pt seen and examined in the ICU. Pt poorly responsive but saturating well on nasal cannula. No fevers recorded. OBJECTIVE: Vital Signs Period Temp Pulse Resp BP Sys/Ramirez Pulse Ox Last 24 Hr 97.8 F-98.7 F 70-102 11-18 140-159/70-86 96-100 Intake & Output 02/02/20 02/03/20 02/04/20 02/05/20 23:59 23:59 23:59 23:59 Intake Total 814 1800 180 250 Output Total 2800 0 0 Balance 814 -1000 180 250 Weight 50.884 kg 44.089 kg 43.817 kg Gen: NAD at rest Heart: RRR Lung: less rhonchi Abd: soft, nontender Ext: no edema CBC, BMP 02/05/20 06:00 02/05/20 06:00 Active Medications Acetaminophen (Tylenol Oral Solution -) 650 mg PO Q6H PRN PRN Reason: PAIN LEVEL 4 - 6 Last Admin: 02/05/20 01:00 Dose: 650 mg Documented by: Amlodipine Besylate (Norvasc -) 10 mg NGT DAILY [facility] Last Admin: 02/05/20 06:43 Dose: 10 mg Documented by: Chlorhexidine Gluconate (Hibiclens For Decolonization -) 1 applic TP HS [facility] Last Admin: 02/04/20 21:07 Dose: 1 applic Documented by: Collagenase (Santyl -) 1 applic TP DAILY [facility]; Protocol Last Admin: 02/04/20 13:00 Dose: 1 applic Documented by: Guaifenesin (Robitussin -) 10 ml PO Q4H PRN PRN Reason: COUGH Sodium Chloride (Normal Saline -) 250 mls @ 3,000 mls/hr IV PRN PRN PRN Reason: Hypotension during Dialysis Stop: 02/04/20 09:19 Insulin Aspart (Novolog Vial Sliding Scale -) 1 vial SQ Q6HPO [facility]; Protocol Last Admin: 02/05/20 12:09 Dose: Not Given Documented by: Metoprolol Tartrate (Lopressor -) 25 mg PO BID [facility] Last Admin: 02/05/20 09:36 Dose: 25 mg Documented by: Mupirocin (Bactroban Ointment (For Decolonization) -) 1 applic NS BID [facility] Stop: 02/08/20 09:59 Last Admin: 02/05/20 09:36 Dose: 1 applic Documented by: Pantoprazole Sodium (Protonix Iv) 40 mg IVPUSH DAILY [facility] Last Admin: 02/05/20 09:21 Dose: 40 mg Documented by: ASSESSMENT AND PLAN: Acute Hypoxic Respiratory Failure Acute CVA Pneumonia likely Aspiration Acute Blood Loss Anemia ESRD on HD HTN DM Hyperlipidemia h/o CVA - trend cardiac enzymes - completed antibiotics - lasix today - monitor urine output, creatinine - O2 to keep SpO2 >90% - HD per renal - aspiration precautions - enteral feeds - DVT prophylaxis - continue discussions regarding goals of care, advanced directives - can monitor on floor
[2020-02-05] MEDS ORDERED: FUROSEMIDE 40 MG/4 ML INJECTABLE VIAL IVPUSH ONE (14:15)
[2020-02-05] MEDS: CHLORHEXIDINE GLUCONATE 4% CLEANSER FOR DECOLONIZATION TP SCH (21:17)
--- NOTE | 2020-02-05 22:31 | PN ---
Progress Note (short form) - Note Progress Note: extubated -- maintaining on NC not in distress winces when examined open eyes random no bleeding at GT site s/p PRBC Vital Signs - 24 hr 02/05/20 02/05/20 02/05/20 00:00 00:29 02:00 Temperature 98.7 F Pulse Rate 93 H 76 Respiratory 17 16 Rate Blood Pressure 159/86 154/80 O2 Sat by Pulse 100 100 100 Oximetry (%) 02/05/20 02/05/20 02/05/20 02:20 02:35 03:00 Temperature Pulse Rate 89 70 Respiratory 14 Rate Blood Pressure 154/80 140/70 O2 Sat by Pulse 100 100 Oximetry (%) 02/05/20 02/05/20 02/05/20 04:00 06:00 08:00 Temperature 97.8 F Pulse Rate 74 88 88 Respiratory 16 11 18 Rate Blood Pressure 148/84 157/77 158/81 O2 Sat by Pulse 100 100 100 Oximetry (%) 02/05/20 02/05/20 02/05/20 08:56 10:00 12:09 Temperature 98.7 F Pulse Rate 73 75 Respiratory 18 18 Rate Blood Pressure 147/76 145/74 O2 Sat by Pulse 100 100 100 Oximetry (%) Current Medications Generic Name Dose Route Start Last Admin Trade Name Freq PRN Reason Stop Dose Admin Acetaminophen 650 mg 02/05/20 00:53 02/05/20 01:00 Tylenol Oral Solution - PO 650 mg Q6H PRN Administration PAIN LEVEL 4 - 6 Amlodipine Besylate 10 mg 02/05/20 06:45 02/05/20 06:43 Norvasc - NGT 10 mg DAILY [facility] Administration Chlorhexidine Gluconate 1 applic 02/03/20 22:00 02/05/20 21:17 Hibiclens For Decolonization - TP 1 applic HS [facility] Administration Collagenase 1 applic 02/03/20 10:00 02/05/20 12:00 Santyl - TP 1 applic DAILY [facility] Administration Protocol Guaifenesin 10 ml 02/05/20 06:39 Robitussin - PO Q4H PRN COUGH Sodium Chloride 250 mls @ 3,000 mls/hr 02/03/20 09:18 Normal Saline - IV 02/04/20 09:19 PRN PRN Hypotension during Dialysis Insulin Aspart 1 vial 02/03/20 17:30 02/05/20 17:44 Novolog Vial Sliding Scale - SQ Not Given Q6HPO [facility] Protocol Metoprolol Tartrate 25 mg 02/04/20 22:00 02/05/20 21:17 Lopressor - PO 25 mg BID JO[facility] Administration Mupirocin 1 applic 02/03/20 10:00 02/05/20 21:17 Bactroban Ointment (For Decolonization) - NS 02/08/20 09:59 1 applic BID [facility] Administration Pantoprazole Sodium 40 mg 02/03/20 10:00 02/05/20 09:21 Protonix Iv IVPUSH 40 mg DAILY [facility] Administration Laboratory Results - last 24 hr 02/01/20 02/02/20 02/05/20 11:10 19:35 00:01 WBC RBC Hgb Hct MCV MCH MCHC RDW Plt Count MPV Fibrinogen Sodium Potassium Chloride Carbon Dioxide Anion Gap BUN Creatinine Est GFR (CKD-EPI)AfAm Est GFR (CKD-EPI)NonAf POC Glucometer Random Glucose Calcium Troponin I 5.38 H* Blood Type O POSITIVE Antibody Screen Negative Crossmatch See Detail See Detail 02/05/20 02/05/20 02/05/20 00:12 06:00 06:00 WBC 15.0 H RBC 2.97 L Hgb 8.9 L Hct 27.3 L MCV 91.8 MCH 29.9 MCHC 32.6 RDW 18.6 H Plt Count 308 MPV 8.2 Fibrinogen Sodium 144 Potassium 3.1 L Chloride 106 Carbon Dioxide 28 Anion Gap 11 BUN 20.6 H Creatinine 2.7 H Est GFR (CKD-EPI)AfAm 19.07 Est GFR (CKD-EPI)NonAf 16.46 POC Glucometer 98 Random Glucose 141 H Calcium 7.7 L Troponin I 5.26 H* Blood Type Antibody Screen Crossmatch 02/05/20 02/05/20 02/05/20 06:00 06:01 12:02 WBC RBC Hgb Hct MCV MCH MCHC RDW Plt Count MPV Fibrinogen 448.0 Sodium Potassium Chloride Carbon Dioxide Anion Gap BUN Creatinine Est GFR (CKD-EPI)AfAm Est GFR (CKD-EPI)NonAf POC Glucometer 135 129 Random Glucose Calcium Troponin I Blood Type Antibody Screen Crossmatch 02/05/20 02/05/20 17:39 21:13 WBC RBC Hgb Hct MCV MCH MCHC RDW Plt Count MPV Fibrinogen Sodium Potassium Chloride Carbon Dioxide Anion Gap BUN Creatinine Est GFR (CKD-EPI)AfAm Est GFR (CKD-EPI)NonAf POC Glucometer 123 140 Random Glucose Calcium Troponin I Blood Type Antibody Screen Crossmatch S1 S2 RRR left side edematous Lungs decreased Abd- soft, NT, GT+ No edema ct head showed large right mca cerebral edema with minimal hemorrhagic transformation repeat ct head done on january 28 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 ESRD on HD aspiration pneumonia acute respiratory failure -- palliative care on the case --completed iv antibiotics -- pt is FULL CODE -- continue with current care -- poor prognosis --start peg tube feedings -- monitor for fever, aspiration-- assistant director of public works eval for rate Problem List - Problems (1) Altered mental status Code(s): R41.82 - ALTERED MENTAL STATUS, UNSPECIFIED (2) Lactic acidosis Code(s): E87.2 - ACIDOSIS (3) Pneumonia, aspiration Code(s): J69.0 - PNEUMONITIS DUE TO INHALATION OF FOOD AND VOMIT (4) Stroke Code(s): I63.9 - CEREBRAL INFARCTION, UNSPECIFIED (5) ESRD on dialysis Code(s): N18.6 - END STAGE RENAL DISEASE; Z99.2 - DEPENDENCE ON RENAL DIALYSIS (6) Hypertension Code(s): I10 - ESSENTIAL (PRIMARY) HYPERTENSION
[2020-02-06] MEDS: INSULIN SLIDING SCALE (NOVOLOG) 1 VIAL SQ SCH ×5 (00:33→23:35)
--- NOTE | 2020-02-06 07:09 | PN ---
Physical Exam: SUBJECTIVE: Patient seen and examined. Pt remained minimally responsive. OBJECTIVE: Vital Signs Period Temp Pulse Resp BP Sys/Ramirez Pulse Ox Last 24 Hr 98.4 F-99.1 F 73-99 15-30 145-164/74-100 90-100 GENERAL: minimally responsive HEENT: NCAT, pupils sluggish CARDIAC: regular rate and rhythm. +S1, S2, no murmurs. PULMONARY: decreased breath sounds. scattered rhonchi GI: Peg tube in place. Soft, bowel sounds present, non-distended. EXTREMITIES: Upper extremities cool to the touch SKIN: Cyanotic fingertips Laboratory Last Values WBC 17.6 K/mm3 (4.0-10.0) H 02/06/20 05:55 RBC 3.14 M/mm3 (3.60-5.2) L 02/06/20 05:55 Hgb 9.6 GM/dL (10.7-15.3) L 02/06/20 05:55 Hct 29.2 % (32.4-45.2) L 02/06/20 05:55 MCV 93.2 fl (80-96) 02/06/20 05:55 MCH 30.6 pg (25.7-33.7) 02/06/20 05:55 MCHC 32.9 g/dl (32.0-36.0) 02/06/20 05:55 RDW 18.7 % (11.6-15.6) H 02/06/20 05:55 Plt Count 297 K/MM3 (134-434) 02/06/20 05:55 MPV 8.6 fl (7.5-11.1) 02/06/20 05:55 Absolute Neuts (auto) 15.5 K/mm3 (1.5-8.0) H 02/06/20 05:55 Total Counted 100 01/15/20 08:40 Neutrophils % 87.9 % (42.8-82.8) H 02/06/20 05:55 Neutrophils % (Manual) 79.0 % (42.8-82.8) 01/15/20 08:40 Band Neutrophils % 2.0 % 01/15/20 08:40 Lymphocytes % 6.4 % (8-40) L 02/06/20 05:55 Lymphocytes % (Manual) 13.0 % (8-40) 01/15/20 08:40 Monocytes % 4.2 % (3.8-10.2) 02/06/20 05:55 Monocytes % (Manual) 4 % (3.8-10.2) 01/15/20 08:40 Eosinophils % 1.1 % (0-4.5) D 02/06/20 05:55 Eosinophils % (Manual) 0.0 % (0-4.5) 01/15/20 08:40 Basophils % 0.4 % (0-2.0) 02/06/20 05:55 Basophils % (Manual) 1.0 % (0-2.0) 01/15/20 08:40 Nucleated RBC % 0 % (0-0) 02/06/20 05:55 Metamyelocytes 1 % (0-2) 01/15/20 08:40 Hypochromia 0 01/18/20 06:10 Platelet Estimate Increased 01/31/20 06:10 Platelet Comment No clumping noted 01/15/20 08:40 Platelet Comment Large platelets 01/15/20 08:40 Polychromasia 1+ 01/18/20 06:10 Poikilocytosis 1+ 01/18/20 06:10 Anisocytosis 1+ 01/18/20 06:10 Microcytosis 1+ 01/18/20 06:10 Macrocytosis 0 01/18/20 06:10 Freedom Cells 1+ 01/18/20 06:10 Haptoglobin 246 mg/dL (42-346) 02/02/20 20:30 PT with INR 18.50 SEC (9.7-13.0) H 02/02/20 20:30 INR 1.56 (0.83-1.09) H 02/02/20 20:30 PTT (Actin FS) 39.3 SECONDS (25.2-36.5) H 02/02/20 20:30 Fibrinogen 448.0 mg/dL (238-498) 02/05/20 06:00 D-Dimer 1385 ng/ml (0-500) H 02/02/20 20:30 Anticoagulation Therapy No Result Required. 02/01/20 06:48 Puncture Site No Result Required. 02/01/20 06:48 Patient Temperature No Result Required. 02/01/20 06:48 ABG pH 7.467 (7.350-7.450) H 02/01/20 06:48 ABG pCO2 39.10 mmHg (35-45) 02/01/20 06:48 ABG pO2 73.5 mmHg (80-100) L 02/01/20 06:48 ABG HCO3 27.6 mmol/L (22-27) H 02/01/20 06:48 ABG O2 Sat (Measured) 95.6 mmHg (95-98) 02/01/20 06:48 ABG O2 Content No Result Required. 02/01/20 06:48 ABG Base Excess 3.7 mmol/L (-2-2) H 02/01/20 06:48 Sai Test No Result Required. 02/01/20 06:48 VBG pH 7.309 (7.310-7.410) L 01/14/20 20:30 POC VBG pCO2 50.0 mmHg (38-52) 01/14/20 20:30 POC VBG pO2 68.5 mmHg (28-48) H 01/14/20 20:30 VBG HCO3 24.6 mmol/L (23-29) 01/14/20 20:30 VBG O2 Sat (Rayray) 91.9 % (70-80) H 01/14/20 20:30 VBG Base Excess -2.2 mmol/L (-2-2) L 01/14/20 20:30 Patient On Oxygen Yes 02/01/20 06:48 O2 Delivery Device Nc 02/01/20 06:48 Oxygen Flow Rate 4l 02/01/20 06:48 Vent Mode No Result Required. 02/01/20 06:48 Vent Rate No Result Required. 02/01/20 06:48 Mechanical Rate No Result Required. 02/01/20 06:48 PEEP No Result Required. 02/01/20 06:48 Pressure Support Vent No Result Required. 02/01/20 06:48 Sodium 143 mmol/L (136-145) 02/06/20 05:55 Potassium 3.4 mmol/L (3.5-5.1) L 02/06/20 05:55 Chloride 105 mmol/L (98-107) 02/06/20 05:55 Carbon Dioxide 26 mmol/L (21-32) 02/06/20 05:55 Anion Gap 12 MMOL/L (8-16) 02/06/20 05:55 BUN 30.6 mg/dL (7-18) H 02/06/20 05:55 Creatinine 3.1 mg/dL (0.55-1.3) H 02/06/20 05:55 Est GFR (CKD-EPI)AfAm 16.14 02/06/20 05:55 Est GFR (CKD-EPI)NonAf 13.92 02/06/20 05:55 POC Glucometer 100 UNITS (80-120) 02/06/20 11:16 Random Glucose 147 mg/dL (74-106) H 02/06/20 05:55 Lactic Acid 1.9 mmol/L (0.4-2.0) 01/26/20 23:40 Calcium 7.8 mg/dL (8.5-10.1) L 02/06/20 05:55 Phosphorus 2.4 mg/dL (2.5-4.9) L 02/06/20 05:55 Magnesium 2.0 mg/dL (1.8-2.4) 02/06/20 05:55 Iron 10 ug/dL (50-175) L 02/02/20 20:30 TIBC 53 ug/dL (250-450) L 02/02/20 20:30 Iron Saturation 18 % (17.5-39) 02/02/20 20:30 Unsaturated IBC 43 ug/dL (200-275) L 02/02/20 20:30 Ferritin 3483.5 ng/ml (8-388) H 02/02/20 20:30 Total Bilirubin 0.5 mg/dL (0.2-1) 02/06/20 05:55 Direct Bilirubin 0.1 mg/dL (0.0-0.2) 01/28/20 05:40 AST 21 U/L (15-37) 02/06/20 05:55 ALT 12 U/L (13-61) L 02/06/20 05:55 Alkaline Phosphatase 234 U/L (45-117) H 02/06/20 05:55 LD Total 368 U/L (84-246) H 02/03/20 10:30 Creatine Kinase 61 U/L (26-192) 02/03/20 10:30 Troponin I 5.11 ng/ml (0.00-0.05) H* 02/06/20 05:55 Total Protein 5.3 g/dl (6.4-8.2) L 02/06/20 05:55 Albumin 1.2 g/dl (3.4-5.0) L 02/06/20 05:55 Beta-Hydroxybutyrate 8.7 mg/dL (0.2-2.8) H 01/15/20 08:40 TSH 1.32 uIU/ml (0.358-3.74) 01/14/20 20:10 Stool Occult Blood Positive (NEGATIVE) 02/02/20 21:00 COVID-19 ([facility]) Not detected (Not Detected) 01/15/20 00:30 Hep Bs Antigen Negative (Negative) 01/15/20 14:50 Hep C Ab Diagnostic 0.1 s/co ratio (0.0-0.9) 01/15/20 14:50 Blood Type O POSITIVE 02/01/20 11:10 Antibody Screen Negative 02/01/20 11:10 Direct Antiglob Test Positive (NEGATIVE) 02/02/20 19:35 Crossmatch See Detail 02/02/20 19:35 Active Medications Acetaminophen (Tylenol Oral Solution -) 650 mg PO Q6H PRN PRN Reason: PAIN LEVEL 4 - 6 Last Admin: 02/05/20 01:00 Dose: 650 mg Documented by: Albuterol/Ipratropium (Duoneb -) 1 amp NEB RQID [facility] Last Admin: 02/06/20 11:45 Dose: 1 amp Documented by: Amlodipine Besylate (Norvasc -) 10 mg NGT DAILY [facility] Last Admin: 02/06/20 10:49 Dose: Not Given Documented by: Chlorhexidine Gluconate (Hibiclens For Decolonization -) 1 applic TP HS [facility] Last Admin: 02/05/20 21:17 Dose: 1 applic Documented by: Collagenase (Santyl -) 1 applic TP DAILY [facility]; Protocol Last Admin: 02/06/20 10:48 Dose: 1 applic Documented by: Guaifenesin (Robitussin -) 10 ml PO Q4H PRN PRN Reason: COUGH Sodium Chloride (Normal Saline -) 250 mls @ 3,000 mls/hr IV PRN PRN PRN Reason: Hypotension during Dialysis Stop: 02/04/20 09:19 Insulin Aspart (Novolog Vial Sliding Scale -) 1 vial SQ Q6HPO [facility]; Protocol Last Admin: 02/06/20 05:33 Dose: Not Given Documented by: Metoprolol Tartrate (Lopressor -) 25 mg PO BID [facility] Last Admin: 02/06/20 10:48 Dose: Not Given Documented by: Mupirocin (Bactroban Ointment (For Decolonization) -) 1 applic NS BID [facility] Stop: 02/08/20 09:59 Last Admin: 02/06/20 10:48 Dose: 1 applic Documented by: Pantoprazole Sodium (Protonix Iv) 40 mg IVPUSH DAILY [facility] Last Admin: 02/06/20 10:48 Dose: 40 mg Documented by: ASSESSMENT/PLAN: 74 year old female w/ PMH of CVA, ESRD on HD, HTN, HLD, DM, sacral ulcer admitted to ICU for acute hypoxic respiratory failure. Pt was on 4S with SpO2 ~70 with increased work of breathing. Thus, rapid response called. Pt was intubated and admitted to ICU for acute hypoxic respiratory failure. Family was notified of pt's condition and rescinded DNR. Pt tolerated CPAP mode and was extubated 01/29. GOC discussion ongoing. Pt received Peg tube 01/30. Overnight, pt had bleeding at the Peg tube site, despite compression for 15 minutes and surgiceal. 2 additional stitches and surgiceal were placed. Bleeding stopped. Sutures removed 02/04. Peg tube site remained dry and not bleeding. CT abd done due to investigation of dropping H/H, however, resulted in extravasation of contrast of L arm. Elevated coags debbie concern for DIC. Tele monitor showed rhythm changes, troponin elevated (5.2). EKG suggested NSTEMI, however, holding AC due to persistently dropping H/H. Neuro CVA history Bihemispheric stroke with minimal responsiveness -Off sedation, minimally responsive at baseline. -assess mental status. -CT head showed moderate size subacute infarct in L frontal lobe. Large R MCA subacute infarct w/ suggestion of interval minimal hemorrhagic transformation seen in R frontal lobe. -Neuro consulted. Recommendations appreciated. -Hold Plavix due to bleeding. Cardiac PMH HTN PMH HLD -Held home labetolol, valsartan, amlodipine, given soft bp. -Held lipitor, given transaminitis -Monitor and maintain MAP>65 -Monitor H/H and transfuse to keep Hb>8 -Cardio consulted. Recommended trend elevated troponins, daily EKG. Continue 25 mg metoprolol BID. Lasix today. Echo. Further cardiac workup depending on mental status. Keep Hct 30%. -Heme/Onc consulted. -Tele monitor showed change. EKG showed L bundle branch block. -Echo showed LV EF 55-60%, imparied relaxation, moderate pulmonary HTN. EKG with no changes, persistent L bundle branch block, normal sinus -Elevated troponin likely due to anemia induced ischemia. Troponin downtrending. Pulmonary Atelectasis Acute hypoxic respiratory failure Aspiration PNA -CXR on 02/05 - L pulmonary and pleural changes. -Extubated 01/29. -c/w Chest physiotherapy and positional therapy -c/w suction of nasal/oropharynx -Spoke to respiratory in regards to curved suction to reach mucus plug in L bronchus, however, respiratory therapist and administrative nursing supervisor stated there is no "closed-loop" suction to use for this pt and that the curved suction is only compatible to pt's on a ventilator. -aspiration precautions -c/w guaifenesin, duoneb -ABG shows metabolic alkalosis -Supplemental O2 to keep SpO2 >90% GI s/p PEG placement Transaminitis -Peg tube placed 01/30 Renal Hypokalemia, improved ESRD on HD -Nephro consulted. Continue current management. Received dialysis 02/05 with 3 K bath. -monitor I/O's ID Aspiration PNA Sacral ulcer Leukocytosis -Afebrile -Discontinued Zosyn -Continue application Collegenase (Santyl) -ID consulted. Recommended discontinue zosyn and reculture off for current temperature and increased WBC. -COVID negative -f/u C Diff Endocrine Hypoglycemia, improved Diabetes mellitus Hypokalemia, resolved -ISS + BGM FEN -No standing fluids -follow electrolytes and replete as needed -Feeds at 35 (nepro) as per dietary Px -DVT: SCD b/l -GI: PPI LTD -Peg 01/30 -[facility] 02/01 -Permacath R side Family discussion/code status: Goals of care discussion ongoing. Palliative care saw pt, discussed GOC with family. Dr. Vega spoke to family about GOC. FULL CODE. 02/05 Spoke to daughter Kelsey about pt's current status. Dispo: Continue to monitor in ICU Visit type - Emergency Visit Emergency Visit: Yes ED Registration Date: 01/15/20 Care time: The patient presented to the Emergency Department on the above date and was hospitalized for further evaluation of their emergent condition. - New Patient This patient is new to me today: No - Critical Care Critical Care patient: Yes Total Critical Care Time (in minutes): 37 Critical Care Statement: The care of this patient involved high complexity decision making to prevent further life threatening deterioration of the patient's condition and/or to evaluate & treat vital organ system(s) failure or risk of failure. - Medication Review Med list reviewed for High Risk Meds patients 65 and older: Yes ATTENDING PHYSICIAN STATEMENT I saw and evaluated the patient. I reviewed the resident's note and discussed the case with the resident. I agree with the resident's findings and plan as documented. SUBJECTIVE: OBJECTIVE: ASSESSMENT AND PLAN:
[2020-02-06 07:36] LABS: BASO % 0.4 % (0-2.0); EOS % 1.1 % (0-4.5); HEMATOCRIT 29.2 % (32.4-45.2); HEMOGLOBIN 9.6 GM/dL (10.7-15.3); LYMPH % 6.4 % (8-40); MCH 30.6 pg (25.7-33.7); MCHC 32.9 g/dl (32.0-36.0); MEAN CELL VOLUME 93.2 fl (80-96); MEAN PLT VOLUME 8.6 fl (7.5-11.1); MONO % 4.2 % (3.8-10.2); NEUT % 87.9 % (42.8-82.8); PLATELET COUNT 297 K/MM3 (134-434); RBC 3.14 M/mm3 (3.60-5.2); RDW 18.7 % (11.6-15.6); WHITE BLOOD COUNT 17.6 K/mm3 (4.0-10.0)
[2020-02-06 08:39] LABS: ALBUMIN 1.2 g/dl (3.4-5.0); BILIRUBIN,TOTAL 0.5 mg/dL (0.2-1); BLOOD UREA NITROGEN 30.6 mg/dL (7-18); CALCIUM 7.8 mg/dL (8.5-10.1); CREATININE 3.1 mg/dL (0.55-1.3); PHOSPHOROUS 2.4 mg/dL (2.5-4.9); POTASSIUM 3.4 mmol/L (3.5-5.1); TOT PROT 5.3 g/dl (6.4-8.2)
--- NOTE | 2020-02-06 10:17 | PN ---
Progress Note (short form) - Note Progress Note: late note entry--- 02/04/20 visit Patient was seen and examined in ICU chart was reviewed Overall condition same Poorly responsive Vitals--stable physical exam Poorly responsive Neck supple Lungs= diminished Heart sounds-regular Abdomen-soft Extremities-no edema Labs-noted Assessment and plan Overall condition same Acute CVA Status post PEG Other problems as listed Continue present care Prognosis poor Palliative care team following Will continue to follow Problem List - Problems (1) Stroke Code(s): I63.9 - CEREBRAL INFARCTION, UNSPECIFIED (2) Pneumonia, aspiration Code(s): J69.0 - PNEUMONITIS DUE TO INHALATION OF FOOD AND VOMIT (3) Diabetes Code(s): E11.9 - TYPE 2 DIABETES MELLITUS WITHOUT COMPLICATIONS (4) ESRD on dialysis Code(s): N18.6 - END STAGE RENAL DISEASE; Z99.2 - DEPENDENCE ON RENAL DIALYSIS
[2020-02-06] MEDS ORDERED: PT OWN MED DRAWER 7, Y5N ONE (10:28)
[2020-02-06] MEDS: COLLAGENASE CLOSTRIDIUM HIST. 30 GRAMS TUBE TP SCH (10:48)
[2020-02-06] MEDS: MUPIROCIN 2% TOPICAL OINTMENT FOR DECOLONIZATION NS SCH ×2 (10:48→21:00)
[2020-02-06] MEDS: METOPROLOL TARTRATE 25 MG TABLET (FP) PO SCH ×3 (10:48→21:00)
[2020-02-06] MEDS: PANTOPRAZOLE SODIUM 40 MG VIAL IVPUSH SCH (10:48)
[2020-02-06] MEDS: amLODIPine BESYLATE 10 MG TABLET (FP) NGT SCH ×2 (10:49→16:56)
--- NOTE | 2020-02-06 11:40 | PN ---
Progress Note (short form) - Note Progress Note: RENAL pt on telemetry she is unresponsive currently on dialysis. I reduced uf rate because of tachycardia Last Vital Signs Temp Pulse Resp BP Pulse Ox 98.1 F 105 H 26 H 127/63 89 L 02/06/20 08:50 02/06/20 10:55 02/06/20 10:55 02/06/20 10:55 02/06/20 10:00 lungs clear cvs s1s2 rr +DAVE abd soft ext upper ext edema neuro unresponsive CBC, BMP 02/06/20 05:55 02/06/20 05:55 Current Medications Generic Name Dose Route Start Last Admin Trade Name Freq PRN Reason Stop Dose Admin Acetaminophen 650 mg 02/05/20 00:53 02/05/20 01:00 Tylenol Oral Solution - PO 650 mg Q6H PRN Administration PAIN LEVEL 4 - 6 Albuterol/Ipratropium 1 amp 02/06/20 12:00 Duoneb - NEB RQID [facility] Amlodipine Besylate 10 mg 02/05/20 06:45 02/06/20 10:49 Norvasc - NGT Not Given DAILY [facility] Chlorhexidine Gluconate 1 applic 02/03/20 22:00 02/05/20 21:17 Hibiclens For Decolonization - TP 1 applic HS [facility] Administration Collagenase 1 applic 02/03/20 10:00 02/06/20 10:48 Santyl - TP 1 applic DAILY [facility] Administration Protocol Guaifenesin 10 ml 02/05/20 06:39 Robitussin - PO Q4H PRN COUGH Sodium Chloride 250 mls @ 3,000 mls/hr 02/03/20 09:18 Normal Saline - IV 02/04/20 09:19 PRN PRN Hypotension during Dialysis Insulin Aspart 1 vial 02/03/20 17:30 02/06/20 05:33 Novolog Vial Sliding Scale - SQ Not Given Q6HPO [facility] Protocol Metoprolol Tartrate 25 mg 02/04/20 22:00 02/06/20 10:48 Lopressor - PO Not Given BID [facility] Mupirocin 1 applic 02/03/20 10:00 02/06/20 10:48 Bactroban Ointment (For Decolonization) - NS 02/08/20 09:59 1 applic BID [facility] Administration Pantoprazole Sodium 40 mg 02/03/20 10:00 02/06/20 10:48 Protonix Iv IVPUSH 40 mg DAILY [facility] Administration IMPRESSION esrd htn s/p cva x 2- unresponsive hypokalemia resolved covid 19 neg hypernatremia resolved PLAN Being dialyzed now against a 3 k bath no other active renal issues MV
[2020-02-06] MEDS: ALBUTEROL SO4 2.5/IPRATROPIUM 0.5 INH SOL 3 ML VIAL.NEB. NEB SCH (11:45)
--- NOTE | 2020-02-06 12:44 | PN ---
Teaching Attending Note Name of Resident: Kiley Devi ATTENDING PHYSICIAN STATEMENT I saw and evaluated the patient. I reviewed the resident's note and discussed the case with the resident. I agree with the resident's findings and plan as documented. SUBJECTIVE: Pt seen and examined in the ICU. Dialyzed this AM. Pt poorly responsive, hypoxic on nasal cannula, placed on ventimask. No fevers recorded. OBJECTIVE: Vital Signs Period Temp Pulse Resp BP Sys/Ramirez Pulse Ox Last 24 Hr 97.8 F-99.1 F 84-106 15-30 100-164/52-100 89-99 Intake & Output 02/03/20 02/04/20 02/05/20 02/06/20 23:59 23:59 23:59 23:59 Intake Total 1800 180 950 820 Output Total 2800 0 0 1600 Balance -1000 180 950 -780 Weight 50.884 kg 44.089 kg 43.817 kg 44.633 kg Gen: NAD at rest Heart: RRR Lung: less rhonchi Abd: soft, nontender Ext: no edema CBC, BMP 02/06/20 05:55 02/06/20 05:55 Active Medications Acetaminophen (Tylenol Oral Solution -) 650 mg PO Q6H PRN PRN Reason: PAIN LEVEL 4 - 6 Last Admin: 02/05/20 01:00 Dose: 650 mg Documented by: Albuterol/Ipratropium (Duoneb -) 1 amp NEB RQID [facility] Last Admin: 02/06/20 11:45 Dose: 1 amp Documented by: Amlodipine Besylate (Norvasc -) 10 mg NGT DAILY [facility] Last Admin: 02/06/20 10:49 Dose: Not Given Documented by: Chlorhexidine Gluconate (Hibiclens For Decolonization -) 1 applic TP HS [facility] Last Admin: 02/05/20 21:17 Dose: 1 applic Documented by: Collagenase (Santyl -) 1 applic TP DAILY [facility]; Protocol Last Admin: 02/06/20 10:48 Dose: 1 applic Documented by: Guaifenesin (Robitussin -) 10 ml PO Q4H PRN PRN Reason: COUGH Sodium Chloride (Normal Saline -) 250 mls @ 3,000 mls/hr IV PRN PRN PRN Reason: Hypotension during Dialysis Stop: 02/04/20 09:19 Insulin Aspart (Novolog Vial Sliding Scale -) 1 vial SQ Q6HPO [facility]; Protocol Last Admin: 02/06/20 05:33 Dose: Not Given Documented by: Metoprolol Tartrate (Lopressor -) 25 mg PO BID [facility] Last Admin: 02/06/20 10:48 Dose: Not Given Documented by: Mupirocin (Bactroban Ointment (For Decolonization) -) 1 applic NS BID [facility] Stop: 02/08/20 09:59 Last Admin: 02/06/20 10:48 Dose: 1 applic Documented by: Pantoprazole Sodium (Protonix Iv) 40 mg IVPUSH DAILY [facility] Last Admin: 02/06/20 10:48 Dose: 40 mg Documented by: ASSESSMENT AND PLAN: Acute Hypoxic Respiratory Failure Acute CVA Pneumonia likely Aspiration Acute Blood Loss Anemia ESRD on HD HTN DM Hyperlipidemia h/o CVA - completed antibiotics - monitor urine output, creatinine - O2 to keep SpO2 >90% - HD per renal - aspiration precautions - enteral feeds - DVT prophylaxis - continue discussions regarding goals of care, advanced directives - can monitor on floor
--- NOTE | 2020-02-06 13:48 | PN ---
Progress Note, Physician Chief Complaint: Pt intubated; unresponsive History of Present Illness: Ms. Galeas is a 74 year old black female with a significant past medical history of ESRD, hypertension, DMII, GERD, HTN, and HL, who presents to the ED, BIBA, and unresponsive x2 days. ESRD (on HD), hypertension, DMII, GERD, HTN, HL, aphasia and stroke [address] showed (01/13) right parietal, occipital and temporal lobe suggestive of acute CVA; no acute intracranial bleed ; Prolonged ICU course complicated by Acute worsening of chronic anemia, likely from stomal bleed. Elevated TNIs most likely anemia- induced ischemia. - Current Medication List Current Medications: Active Medications Acetaminophen (Tylenol Oral Solution -) 650 mg PO Q6H PRN PRN Reason: PAIN LEVEL 4 - 6 Last Admin: 02/05/20 01:00 Dose: 650 mg Documented by: Albuterol/Ipratropium (Duoneb -) 1 amp NEB RQID [facility] Last Admin: 02/06/20 11:45 Dose: 1 amp Documented by: Amlodipine Besylate (Norvasc -) 10 mg NGT DAILY [facility] Last Admin: 02/06/20 10:49 Dose: Not Given Documented by: Chlorhexidine Gluconate (Hibiclens For Decolonization -) 1 applic TP HS [facility] Last Admin: 02/05/20 21:17 Dose: 1 applic Documented by: Collagenase (Santyl -) 1 applic TP DAILY [facility]; Protocol Last Admin: 02/06/20 10:48 Dose: 1 applic Documented by: Guaifenesin (Robitussin -) 10 ml PO Q4H PRN PRN Reason: COUGH Sodium Chloride (Normal Saline -) 250 mls @ 3,000 mls/hr IV PRN PRN PRN Reason: Hypotension during Dialysis Stop: 02/04/20 09:19 Insulin Aspart (Novolog Vial Sliding Scale -) 1 vial SQ Q6HPO [facility]; Protocol Last Admin: 02/06/20 05:33 Dose: Not Given Documented by: Metoprolol Tartrate (Lopressor -) 25 mg PO BID [facility] Last Admin: 02/06/20 10:48 Dose: Not Given Documented by: Mupirocin (Bactroban Ointment (For Decolonization) -) 1 applic NS BID [facility] Stop: 02/08/20 09:59 Last Admin: 02/06/20 10:48 Dose: 1 applic Documented by: Pantoprazole Sodium (Protonix Iv) 40 mg IVPUSH DAILY [facility] Last Admin: 02/06/20 10:48 Dose: 40 mg Documented by: - Objective Vital Signs: Vital Signs Temperature 98.1 F 02/06/20 08:50 Pulse Rate 98 H 02/06/20 12:00 Respiratory Rate 26 H 02/06/20 12:00 Blood Pressure 142/71 02/06/20 12:00 O2 Sat by Pulse Oximetry (%) 89 L 02/06/20 10:00 Constitutional: Yes: Thin, Other Eyes: Yes: Other (difficult to appreciate: closed tightly) HENT: Yes: Other Neck: Yes: Decreased ROM Cardiovascular: Yes: S1, S2 (split) Respiratory: Yes: Diminished (left base), Mechanically Ventilated Gastrointestinal: Yes: Other (tense) Genitourinary: Yes: Vasquez Present. No: Anuria Breast(s): Yes: WNL Musculoskeletal: Yes: Muscle Weakness, Other (arms turned in) Extremities: Yes: Cool Edema: Yes Edema: LLE: Trace, RLE: Trace Peripheral Pulses WNL: Yes Integumentary: Yes: WNL Neurological: Yes: Unresponsive Psychiatric: Yes: Other Labs: CBC, BMP 02/06/20 05:55 02/06/20 05:55 INR, PTT INR 1.56 (0.83-1.09) H 02/02/20 20:30 Fibrinogen 448.0 mg/dL (238-498) 02/05/20 06:00 Abnormal Lab Results 02/01/20 02/06/20 02/06/20 11:10 05:55 05:55 WBC 17.6 H RBC 3.14 L Hgb 9.6 L Hct 29.2 L RDW 18.7 H Absolute Neuts (auto) 15.5 H Neutrophils % 87.9 H Lymphocytes % 6.4 L ABG pH ABG pO2 ABG HCO3 ABG O2 Sat (Measured) ABG Base Excess Potassium 3.4 L BUN 30.6 H Creatinine 3.1 H Random Glucose 147 H Calcium 7.8 L Phosphorus 2.4 L ALT 12 L Alkaline Phosphatase 234 H Troponin I 5.11 H* Total Protein 5.3 L Albumin 1.2 L Crossmatch See Detail 02/06/20 02/06/20 02/07/20 14:07 15:22 05:30 WBC 16.7 H RBC 3.07 L Hgb 9.2 L Hct 28.5 L RDW 18.2 H Absolute Neuts (auto) 14.9 H Neutrophils % 89.0 H Lymphocytes % 5.6 L ABG pH 7.503 H ABG pO2 56.3 L ABG HCO3 29.6 H ABG O2 Sat (Measured) 91.8 L ABG Base Excess 6.1 H Potassium BUN Creatinine Random Glucose Calcium Phosphorus ALT Alkaline Phosphatase Troponin I 4.74 H* Total Protein Albumin Crossmatch 02/07/20 05:30 WBC RBC Hgb Hct RDW Absolute Neuts (auto) Neutrophils % Lymphocytes % ABG pH ABG pO2 ABG HCO3 ABG O2 Sat (Measured) ABG Base Excess Potassium 3.4 L BUN 24.0 H Creatinine 2.3 H Random Glucose 241 H Calcium 7.7 L Phosphorus 1.5 L ALT 10 L Alkaline Phosphatase 279 H Troponin I Total Protein 5.3 L Albumin 1.2 L Crossmatch - ....Imaging Chest X-ray: Image Reviewed EKG: Image Reviewed (NSR; LBBB) Assessment/Plan Acute right temporoparietal infarct -- Large MCA aspiration pneumonia ESRD -HD Respiratory failure severe Anemia New elevated TNIs - most likely due to demand ischemia due to severe anemia. New LBBB 7-25-20 s/p PEG Nl EF Moderater MR moderate PHT Plan: Replete K+ and PO4+ TNi trending down EKG: NSR; LBBB keep HCT around 30% Continue Metoprolol tartrate 25 BID Start ASA if cleared by Neuro and GI Further cardiac w/u will depend on mental status recovery cc time spent 35 min
[2020-02-06 14:51] LABS: ARTERIAL BLD GAS O2 SATURATION 91.8 mmHg (95-98); ARTERIAL BLOOD GAS BASE EXCESS 6.1 mmol/L (-2-2); ARTERIAL BLOOD GAS PO2 56.3 mmHg (80-100); ARTERIAL BLOOD GAS pH 7.503 (7.350-7.450)
[2020-02-06 15:02] LABS: ALLENS TEST POSITIVE
--- NOTE | 2020-02-06 16:18 | PN ---
Teaching Attending Note Name of Resident: Kelvin Lyn ATTENDING PHYSICIAN STATEMENT I saw and evaluated the patient. I reviewed the resident's note and discussed the case with the resident. I agree with the resident's findings and plan as documented. SUBJECTIVE: Sedated. OBJECTIVE: ASSESSMENT AND PLAN: 74 y/o lady with Hx of CVA w/ aphasia and L paralysis, ESRD on HD MWF, HTN, HLD admitted to ICU for lethargy/unresponsiveness. Acute Respiratory Failure Acute CVA Pneumonia likely Aspiration ESRD on HD HTN DM Hyperlipidemia h/o CVA s/p PEG tube placement on 01/31/20 Anemia Dropping hemoglobin---- worsening anemia of chronic disease and blood loss (+FOBT). Transfused pRBC s/p PEG tube placement 01/30 f/u CT GI consult Unlikely hemolysis : Sapna+ but LDH marginally elevated. Haptoglobin pending r/o dic, ? aspiration pneumonia Goals of care discussion
[2020-02-06] MEDS: CHLORHEXIDINE GLUCONATE 4% CLEANSER FOR DECOLONIZATION TP SCH (21:00)
[2020-02-06] MEDS: ACETAMINOPHEN 650 MG/20.3 ML ORAL SOLUTION (CUPS) PO PRN (21:01)
--- NOTE | 2020-02-06 21:34 | PN ---
Progress Note (short form) - Note Progress Note: extubated -- maintaining on NC not in distress winces when examined open eyes random no bleeding at GT site s/p PRBC Vital Signs - 24 hr 02/05/20 02/06/20 02/06/20 22:00 00:00 02:00 Temperature 99.1 F 98.9 F Pulse Rate 84 92 H 94 H Respiratory 15 20 22 H Rate Blood Pressure 159/90 160/91 162/100 O2 Sat by Pulse 92 L 90 L 93 L Oximetry (%) 02/06/20 02/06/20 02/06/20 04:00 06:00 08:40 Temperature 98.4 F 97.8 F Pulse Rate 90 94 H 102 H Respiratory 21 H 22 H 25 H Rate Blood Pressure 164/91 158/86 154/71 O2 Sat by Pulse 93 L 91 L 99 Oximetry (%) 02/06/20 02/06/20 02/06/20 08:50 08:55 09:00 Temperature 98.1 F Pulse Rate 104 H 106 H Respiratory 24 H 24 H 24 H Rate Blood Pressure 154/71 155/80 O2 Sat by Pulse 99 Oximetry (%) 02/06/20 02/06/20 02/06/20 09:25 09:55 10:00 Temperature Pulse Rate 101 H 105 H 105 H Respiratory 24 H 22 H 22 H Rate Blood Pressure 100/52 L 121/72 121/68 O2 Sat by Pulse 90 L Oximetry (%) 02/06/20 02/06/20 02/06/20 10:25 10:55 11:25 Temperature Pulse Rate 102 H 105 H 104 H Respiratory 21 H 26 H 30 H Rate Blood Pressure 121/68 127/63 101/53 L O2 Sat by Pulse Oximetry (%) 02/06/20 02/06/20 02/06/20 11:55 12:00 14:00 Temperature Pulse Rate 101 H 97 H 103 H Respiratory 24 H 21 H 22 H Rate Blood Pressure 103/61 141/71 146/74 O2 Sat by Pulse 88 L Oximetry (%) 02/06/20 02/06/20 02/06/20 16:00 18:00 20:11 Temperature 98.4 F Pulse Rate 98 H 96 H Respiratory 24 H 24 H Rate Blood Pressure 159/76 152/70 O2 Sat by Pulse 96 96 Oximetry (%) Current Medications Generic Name Dose Route Start Last Admin Trade Name Freq PRN Reason Stop Dose Admin Acetaminophen 650 mg 02/05/20 00:53 02/06/20 21:01 Tylenol Oral Solution - PO 650 mg Q6H PRN Administration PAIN LEVEL 4 - 6 Albuterol/Ipratropium 1 amp 02/06/20 12:00 02/06/20 11:45 Duoneb - NEB 1 amp RQID JOSE Administration Amlodipine Besylate 10 mg 02/05/20 06:45 02/06/20 16:56 Norvasc - NGT 10 mg DAILY JOSE Administration Chlorhexidine Gluconate 1 applic 02/03/20 22:00 02/06/20 21:00 Hibiclens For Decolonization - TP 1 applic HS JOSE Administration Collagenase 1 applic 02/03/20 10:00 02/06/20 10:48 Santyl - TP 1 applic DAILY JOSE Administration Protocol Guaifenesin 10 ml 02/05/20 06:39 Robitussin - PO Q4H PRN COUGH Sodium Chloride 250 mls @ 3,000 mls/hr 02/03/20 09:18 Normal Saline - IV 02/04/20 09:19 PRN PRN Hypotension during Dialysis Insulin Aspart 1 vial 02/03/20 17:30 02/06/20 17:13 Novolog Vial Sliding Scale - SQ Not Given Q6HPO [facility] Protocol Metoprolol Tartrate 25 mg 02/04/20 22:00 02/06/20 21:00 Lopressor - PO 25 mg BID JOSE Administration Mupirocin 1 applic 02/03/20 10:00 02/06/20 21:00 Bactroban Ointment (For Decolonization) - NS 02/08/20 09:59 1 applic BID JOSE Administration Pantoprazole Sodium 40 mg 02/03/20 10:00 02/06/20 10:48 Protonix Iv IVPUSH 40 mg DAILY JOSE Administration Laboratory Results - last 24 hr 02/01/20 02/06/20 02/06/20 11:10 05:32 05:55 WBC 17.6 H RBC 3.14 L Hgb 9.6 L Hct 29.2 L MCV 93.2 MCH 30.6 MCHC 32.9 RDW 18.7 H Plt Count 297 MPV 8.6 Absolute Neuts (auto) 15.5 H Neutrophils % 87.9 H Lymphocytes % 6.4 L Monocytes % 4.2 Eosinophils % 1.1 D Basophils % 0.4 Nucleated RBC % 0 Anticoagulation Therapy Puncture Site Patient Temperature ABG pH ABG pCO2 ABG pO2 ABG HCO3 ABG O2 Sat (Measured) ABG O2 Content ABG Base Excess Sai Test Patient On Oxygen O2 Delivery Device Oxygen Flow Rate Vent Mode Vent Rate Mechanical Rate PEEP Pressure Support Vent Sodium Potassium Chloride Carbon Dioxide Anion Gap BUN Creatinine Est GFR (CKD-EPI)AfAm Est GFR (CKD-EPI)NonAf POC Glucometer 143 Random Glucose Calcium Phosphorus Magnesium Total Bilirubin AST ALT Alkaline Phosphatase Troponin I Total Protein Albumin Blood Type O POSITIVE Antibody Screen Negative Crossmatch See Detail 02/06/20 02/06/20 02/06/20 05:55 11:16 14:07 WBC RBC Hgb Hct MCV MCH MCHC RDW Plt Count MPV Absolute Neuts (auto) Neutrophils % Lymphocytes % Monocytes % Eosinophils % Basophils % Nucleated RBC % Anticoagulation Therapy No Result Required. Puncture Site Right radial Patient Temperature No Result Required. ABG pH 7.503 H ABG pCO2 38.60 ABG pO2 56.3 L ABG HCO3 29.6 H ABG O2 Sat (Measured) 91.8 L ABG O2 Content No Result Required. ABG Base Excess 6.1 H Sai Test Positive Patient On Oxygen Yes O2 Delivery Device V/m Oxygen Flow Rate 50 Vent Mode No Result Required. Vent Rate No Result Required. Mechanical Rate No Result Required. PEEP No Result Required. Pressure Support Vent No Result Required. Sodium 143 Potassium 3.4 L Chloride 105 Carbon Dioxide 26 Anion Gap 12 BUN 30.6 H Creatinine 3.1 H Est GFR (CKD-EPI)AfAm 16.14 Est GFR (CKD-EPI)NonAf 13.92 POC Glucometer 100 Random Glucose 147 H Calcium 7.8 L Phosphorus 2.4 L Magnesium 2.0 Total Bilirubin 0.5 AST 21 ALT 12 L Alkaline Phosphatase 234 H Troponin I 5.11 H* Total Protein 5.3 L Albumin 1.2 L Blood Type Antibody Screen Crossmatch 02/06/20 02/06/20 15:22 16:35 WBC RBC Hgb Hct MCV MCH MCHC RDW Plt Count MPV Absolute Neuts (auto) Neutrophils % Lymphocytes % Monocytes % Eosinophils % Basophils % Nucleated RBC % Anticoagulation Therapy Puncture Site Patient Temperature ABG pH ABG pCO2 ABG pO2 ABG HCO3 ABG O2 Sat (Measured) ABG O2 Content ABG Base Excess Sai Test Patient On Oxygen O2 Delivery Device Oxygen Flow Rate Vent Mode Vent Rate Mechanical Rate PEEP Pressure Support Vent Sodium Potassium Chloride Carbon Dioxide Anion Gap BUN Creatinine Est GFR (CKD-EPI)AfAm Est GFR (CKD-EPI)NonAf POC Glucometer 128 Random Glucose Calcium Phosphorus Magnesium Total Bilirubin AST ALT Alkaline Phosphatase Troponin I 4.74 H* Total Protein Albumin Blood Type Antibody Screen Crossmatch S1 S2 RRR left side edematous Lungs decreased Abd- soft, NT, GT+ No edema ct head showed large right mca cerebral edema with minimal hemorrhagic tr ansformation repeat ct head done on january 28 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 ESRD on HD aspiration pneumonia acute respiratory failure -- palliative care on the case --completed iv antibiotics -- pt is FULL CODE -- continue with current care -- poor prognosis --start peg tube feedings -- monitor for fever, aspiration-- privacy director eval for rate Problem List - Problems (1) Altered mental status Code(s): R41.82 - ALTERED MENTAL STATUS, UNSPECIFIED (2) Lactic acidosis Code(s): E87.2 - ACIDOSIS (3) Pneumonia, aspiration Code(s): J69.0 - PNEUMONITIS DUE TO INHALATION OF FOOD AND VOMIT (4) Stroke Code(s): I63.9 - CEREBRAL INFARCTION, UNSPECIFIED (5) ESRD on dialysis Code(s): N18.6 - END STAGE RENAL DISEASE; Z99.2 - DEPENDENCE ON RENAL DIALYSIS (6) Hypertension Code(s): I10 - ESSENTIAL (PRIMARY) HYPERTENSION
[2020-02-07] MEDS: INSULIN SLIDING SCALE (NOVOLOG) 1 VIAL SQ SCH ×3 (06:07→17:23)
[2020-02-07 06:30] LABS: BASO % 0.2 % (0-2.0); EOS % 0.6 % (0-4.5); HEMATOCRIT 28.5 % (32.4-45.2); HEMOGLOBIN 9.2 GM/dL (10.7-15.3); LYMPH % 5.6 % (8-40); MCH 30.1 pg (25.7-33.7); MCHC 32.4 g/dl (32.0-36.0); MEAN CELL VOLUME 92.8 fl (80-96); MEAN PLT VOLUME 8.7 fl (7.5-11.1); MONO % 4.6 % (3.8-10.2); PLATELET COUNT 272 K/MM3 (134-434); RBC 3.07 M/mm3 (3.60-5.2); RDW 18.2 % (11.6-15.6); WHITE BLOOD COUNT 16.7 K/mm3 (4.0-10.0)
[2020-02-07 06:52] LABS: ALBUMIN 1.2 g/dl (3.4-5.0); BILIRUBIN,TOTAL 0.4 mg/dL (0.2-1); CALCIUM 7.7 mg/dL (8.5-10.1); CREATININE 2.3 mg/dL (0.55-1.3); PHOSPHOROUS 1.5 mg/dL (2.5-4.9); POTASSIUM 3.4 mmol/L (3.5-5.1); TOT PROT 5.3 g/dl (6.4-8.2)
--- NOTE | 2020-02-07 07:23 | PN ---
Physical Exam: SUBJECTIVE: Patient seen and examined. No acute events overnight. OBJECTIVE: Vital Signs Period Temp Pulse Resp BP Sys/Ramirez Pulse Ox Last 24 Hr 97.6 F-100.2 F 88-106 16-30 100-159/52-80 88-99 GENERAL: minimally responsive HEENT: NCAT, pupils sluggish. On nasal cannula. CARDIAC: regular rate and rhythm. +S1, S2, no murmurs. PULMONARY: Decreased breath sounds. scattered rhonchi GI: Peg tube in place. Soft, bowel sounds present, non-distended. EXTREMITIES: Upper extremities cool to the touch SKIN: Cyanotic fingertips Laboratory Last Values WBC 16.7 K/mm3 (4.0-10.0) H 02/07/20 05:30 RBC 3.07 M/mm3 (3.60-5.2) L 02/07/20 05:30 Hgb 9.2 GM/dL (10.7-15.3) L 02/07/20 05:30 Hct 28.5 % (32.4-45.2) L 02/07/20 05:30 MCV 92.8 fl (80-96) 02/07/20 05:30 MCH 30.1 pg (25.7-33.7) 02/07/20 05:30 MCHC 32.4 g/dl (32.0-36.0) 02/07/20 05:30 RDW 18.2 % (11.6-15.6) H 02/07/20 05:30 Plt Count 272 K/MM3 (134-434) 02/07/20 05:30 MPV 8.7 fl (7.5-11.1) 02/07/20 05:30 Absolute Neuts (auto) 14.9 K/mm3 (1.5-8.0) H 02/07/20 05:30 Total Counted 100 01/15/20 08:40 Neutrophils % 89.0 % (42.8-82.8) H 02/07/20 05:30 Neutrophils % (Manual) 79.0 % (42.8-82.8) 01/15/20 08:40 Band Neutrophils % 2.0 % 01/15/20 08:40 Lymphocytes % 5.6 % (8-40) L 02/07/20 05:30 Lymphocytes % (Manual) 13.0 % (8-40) 01/15/20 08:40 Monocytes % 4.6 % (3.8-10.2) 02/07/20 05:30 Monocytes % (Manual) 4 % (3.8-10.2) 01/15/20 08:40 Eosinophils % 0.6 % (0-4.5) 02/07/20 05:30 Eosinophils % (Manual) 0.0 % (0-4.5) 01/15/20 08:40 Basophils % 0.2 % (0-2.0) 02/07/20 05:30 Basophils % (Manual) 1.0 % (0-2.0) 01/15/20 08:40 Nucleated RBC % 0 % (0-0) 02/07/20 05:30 Metamyelocytes 1 % (0-2) 01/15/20 08:40 Hypochromia 0 01/18/20 06:10 Platelet Estimate Increased 01/31/20 06:10 Platelet Comment No clumping noted 01/15/20 08:40 Platelet Comment Large platelets 01/15/20 08:40 Polychromasia 1+ 01/18/20 06:10 Poikilocytosis 1+ 01/18/20 06:10 Anisocytosis 1+ 01/18/20 06:10 Microcytosis 1+ 01/18/20 06:10 Macrocytosis 0 01/18/20 06:10 Andrea Cells 1+ 01/18/20 06:10 Haptoglobin 246 mg/dL (42-346) 02/02/20 20:30 PT with INR 18.50 SEC (9.7-13.0) H 02/02/20 20:30 INR 1.56 (0.83-1.09) H 02/02/20 20:30 PTT (Actin FS) 39.3 SECONDS (25.2-36.5) H 02/02/20 20:30 Fibrinogen 448.0 mg/dL (238-498) 02/05/20 06:00 D-Dimer 1385 ng/ml (0-500) H 02/02/20 20:30 Anticoagulation Therapy No Result Required. 02/06/20 14:07 Puncture Site Right radial 02/06/20 14:07 Patient Temperature No Result Required. 02/06/20 14:07 ABG pH 7.503 (7.350-7.450) H 02/06/20 14:07 ABG pCO2 38.60 mmHg (35-45) 02/06/20 14:07 ABG pO2 56.3 mmHg (80-100) L 02/06/20 14:07 ABG HCO3 29.6 mmol/L (22-27) H 02/06/20 14:07 ABG O2 Sat (Measured) 91.8 mmHg (95-98) L 02/06/20 14:07 ABG O2 Content No Result Required. 02/06/20 14:07 ABG Base Excess 6.1 mmol/L (-2-2) H 02/06/20 14:07 Sai Test Positive 02/06/20 14:07 VBG pH 7.309 (7.310-7.410) L 01/14/20 20:30 POC VBG pCO2 50.0 mmHg (38-52) 01/14/20 20:30 POC VBG pO2 68.5 mmHg (28-48) H 01/14/20 20:30 VBG HCO3 24.6 mmol/L (23-29) 01/14/20 20:30 VBG O2 Sat (Rayray) 91.9 % (70-80) H 01/14/20 20:30 VBG Base Excess -2.2 mmol/L (-2-2) L 01/14/20 20:30 Patient On Oxygen Yes 02/06/20 14:07 O2 Delivery Device V/m 02/06/20 14:07 Oxygen Flow Rate 50 02/06/20 14:07 Vent Mode No Result Required. 02/06/20 14:07 Vent Rate No Result Required. 02/06/20 14:07 Mechanical Rate No Result Required. 02/06/20 14:07 PEEP No Result Required. 02/06/20 14:07 Pressure Support Vent No Result Required. 02/06/20 14:07 Sodium 141 mmol/L (136-145) 02/07/20 05:30 Potassium 3.4 mmol/L (3.5-5.1) L 02/07/20 05:30 Chloride 104 mmol/L (98-107) 02/07/20 05:30 Carbon Dioxide 27 mmol/L (21-32) 02/07/20 05:30 Anion Gap 10 MMOL/L (8-16) 02/07/20 05:30 BUN 24.0 mg/dL (7-18) H 02/07/20 05:30 Creatinine 2.3 mg/dL (0.55-1.3) H 02/07/20 05:30 Est GFR (CKD-EPI)AfAm 23.15 02/07/20 05:30 Est GFR (CKD-EPI)NonAf 19.98 02/07/20 05:30 POC Glucometer 195 UNITS (80-120) 02/07/20 06:04 Random Glucose 241 mg/dL (74-106) H 02/07/20 05:30 Lactic Acid 1.9 mmol/L (0.4-2.0) 01/26/20 23:40 Calcium 7.7 mg/dL (8.5-10.1) L 02/07/20 05:30 Phosphorus 1.5 mg/dL (2.5-4.9) L 02/07/20 05:30 Magnesium 2.0 mg/dL (1.8-2.4) 02/07/20 05:30 Iron 10 ug/dL (50-175) L 02/02/20 20:30 TIBC 53 ug/dL (250-450) L 02/02/20 20:30 Iron Saturation 18 % (17.5-39) 02/02/20 20:30 Unsaturated IBC 43 ug/dL (200-275) L 02/02/20 20:30 Ferritin 3483.5 ng/ml (8-388) H 02/02/20 20:30 Total Bilirubin 0.4 mg/dL (0.2-1) 02/07/20 05:30 Direct Bilirubin 0.1 mg/dL (0.0-0.2) 01/28/20 05:40 AST 23 U/L (15-37) 02/07/20 05:30 ALT 10 U/L (13-61) L 02/07/20 05:30 Alkaline Phosphatase 279 U/L (45-117) H 02/07/20 05:30 LD Total 368 U/L (84-246) H 02/03/20 10:30 Creatine Kinase 61 U/L (26-192) 02/03/20 10:30 Troponin I 4.74 ng/ml (0.00-0.05) H* 02/06/20 15:22 Total Protein 5.3 g/dl (6.4-8.2) L 02/07/20 05:30 Albumin 1.2 g/dl (3.4-5.0) L 02/07/20 05:30 Beta-Hydroxybutyrate 8.7 mg/dL (0.2-2.8) H 01/15/20 08:40 TSH 1.32 uIU/ml (0.358-3.74) 01/14/20 20:10 Stool Occult Blood Positive (NEGATIVE) 02/02/20 21:00 COVID-19 ([facility]) Not detected (Not Detected) 01/15/20 00:30 Hep Bs Antigen Negative (Negative) 01/15/20 14:50 Hep C Ab Diagnostic 0.1 s/co ratio (0.0-0.9) 01/15/20 14:50 Blood Type O POSITIVE 02/01/20 11:10 Antibody Screen Negative 02/01/20 11:10 Direct Antiglob Test Positive (NEGATIVE) 02/02/20 19:35 Crossmatch See Detail 02/02/20 19:35 Active Medications Acetaminophen (Tylenol Oral Solution -) 650 mg PO Q6H PRN PRN Reason: PAIN LEVEL 4 - 6 Last Admin: 02/06/20 21:01 Dose: 650 mg Documented by: Albuterol/Ipratropium (Duoneb -) 1 amp NEB RQID [facility] Last Admin: 02/06/20 11:45 Dose: 1 amp Documented by: Amlodipine Besylate (Norvasc -) 10 mg NGT DAILY [facility] Last Admin: 02/06/20 16:56 Dose: 10 mg Documented by: Chlorhexidine Gluconate (Hibiclens For Decolonization -) 1 applic TP HS [facility] Last Admin: 02/06/20 21:00 Dose: 1 applic Documented by: Collagenase (Santyl -) 1 applic TP DAILY [facility]; Protocol Last Admin: 02/06/20 10:48 Dose: 1 applic Documented by: Guaifenesin (Robitussin -) 10 ml PO Q4H PRN PRN Reason: COUGH Sodium Chloride (Normal Saline -) 250 mls @ 3,000 mls/hr IV PRN PRN PRN Reason: Hypotension during Dialysis Stop: 02/04/20 09:19 Insulin Aspart (Novolog Vial Sliding Scale -) 1 vial SQ Q6HPO JOSE; Protocol Last Admin: 02/07/20 06:07 Dose: Not Given Documented by: Metoprolol Tartrate (Lopressor -) 25 mg PO BID [facility] Last Admin: 02/06/20 21:00 Dose: 25 mg Documented by: Mupirocin (Bactroban Ointment (For Decolonization) -) 1 applic NS BID [facility] Stop: 02/08/20 09:59 Last Admin: 02/06/20 21:00 Dose: 1 applic Documented by: Pantoprazole Sodium (Protonix Iv) 40 mg IVPUSH DAILY [facility] Last Admin: 02/06/20 10:48 Dose: 40 mg Documented by: ASSESSMENT/PLAN: 74 year old female w/ PMH of CVA, ESRD on HD, HTN, HLD, DM, sacral ulcer admitted to ICU for acute hypoxic respiratory failure. Pt was on 4S with SpO2 ~70 with increased work of breathing. Thus, rapid response called. Pt was intubated and admitted to ICU for acute hypoxic respiratory failure. Family was notified of pt's condition and rescinded DNR. Pt tolerated CPAP mode and was extubated 01/29. GOC discussion ongoing. Pt received Peg tube 01/30. Overnight, pt had bleeding at the Peg tube site, despite compression for 15 minutes and surgiceal. 2 additional stitches and surgiceal were placed. Bleeding stopped. Sutures removed 02/04. Peg tube site remained dry and not bleeding. CT abd done due to investigation of dropping H/H, however, resulted in extravasation of contrast of L arm. Elevated coags debbie concern for DIC. Tele monitor showed rhythm changes, troponin elevated (5.2). EKG suggested NSTEMI, however, holding AC due to persistently dropping H/H. Pt is currently saturating well on NC and is hemodynamically stable. Pt is medically optimized and can be further managed in the medical surgical floor. Neuro CVA history Bihemispheric stroke with minimal responsiveness -Off sedation, minimally responsive at baseline. -assess mental status. -CT head showed moderate size subacute infarct in L frontal lobe. Large R MCA subacute infarct w/ suggestion of interval minimal hemorrhagic transformation seen in R frontal lobe. -Neuro consulted. Recommendations appreciated. -Hold Plavix due to bleeding. Cardiac PMH HTN PMH HLD -c/w labetolol, amlodipine -Held lipitor, given transaminitis -Monitor and maintain MAP>65 -Monitor H/H and transfuse to keep Hb>8 -Cardio consulted. Recommended trend elevated troponins, daily EKG. -Continue 25 mg metoprolol BID, amlodipine. Lasix today. Echo. Further cardiac workup depending on mental status. Keep Hct 30%. -Heme/Onc consulted. -Tele monitor showed change. EKG showed L bundle branch block. -Echo showed LV EF 55-60%, impaired relaxation, moderate pulmonary HTN. EKG with no changes, persistent L bundle branch block, normal sinus -Elevated troponin likely due to anemia induced ischemia. Troponin down trending. Pulmonary Atelectasis Acute hypoxic respiratory failure Aspiration PNA -CXR on 02/05 - L pulmonary and pleural changes. Improved aeration of L lung. -Extubated 01/29. -c/w Chest physiotherapy and positional therapy -c/w suction of nasal/oropharynx -Spoke to respiratory in regards to curved suction to reach mucus plug in L bronchus, however, respiratory therapist and supervisor tank storage stated there is no "closed-loop" suction to use for this pt and that the curved suction is only compatible to pt's on a ventilator. -aspiration precautions -c/w guaifenesin, duoneb -ABG shows metabolic alkalosis -Supplemental O2 to keep SpO2 >90%, currently saturating 100% on 4L NC GI s/p PEG placement Transaminitis -Peg tube placed 01/30 Renal Hypokalemia, improved ESRD on HD -Nephro consulted. Continue current management. Received dialysis 02/05 with 3 K bath. Will receive HD on 02/07 with K bath. -monitor I/O's ID Aspiration PNA Sacral ulcer Leukocytosis -Afebrile -Completed antibiotics course. -Continue application Collegenase (Santyl) -ID consulted. -COVID negative -C diff negative -blood cultures negative thus far Endocrine Hypoglycemia, improved Diabetes mellitus Hypokalemia -ISS + BGM FEN -No standing fluids -follow electrolytes and replete as needed -Feeds at 35 (nepro) as per dietary Px -DVT: SCD b/l -GI: PPI LTD -Peg 01/30 -[facility] 02/01 -Permacath R side Family discussion/code status: Goals of care discussion ongoing. Palliative care saw pt, discussed GOC with family. Dr. Vega spoke to family about GOC. FULL CODE. 02/06 Spoke to daughter Kelsey about pt's current status and poor prognosis. Dispo: Transfer to medical surgical floor for further management. Visit type - Emergency Visit Emergency Visit: Yes ED Registration Date: 01/15/20 Care time: The patient presented to the Emergency Department on the above date and was hospitalized for further evaluation of their emergent condition. - New Patient This patient is new to me today: No - Critical Care Critical Care patient: Yes Total Critical Care Time (in minutes): 36 Critical Care Statement: The care of this patient involved high complexity decision making to prevent further life threatening deterioration of the patient's condition and/or to evaluate & treat vital organ system(s) failure or risk of failure. - Medication Review Med list reviewed for High Risk Meds patients 65 and older: Yes ATTENDING PHYSICIAN STATEMENT I saw and evaluated the patient. I reviewed the resident's note and discussed the case with the resident. I agree with the resident's findings and plan as documented. SUBJECTIVE: OBJECTIVE: ASSESSMENT AND PLAN:
[2020-02-07] MEDS: ALBUTEROL SO4 2.5/IPRATROPIUM 0.5 INH SOL 3 ML VIAL.NEB. NEB SCH ×4 (08:15→22:53)
[2020-02-07] MEDS ORDERED: POTASSIUM PHOSPHATE 15 MM in DEXTROSE 5%-WATER - 250 ML IVPB ONE (09:00)
[2020-02-07] MEDS: PANTOPRAZOLE SODIUM 40 MG VIAL IVPUSH SCH (10:33)
[2020-02-07] MEDS: METOPROLOL TARTRATE 25 MG TABLET (FP) PO SCH ×2 (10:33→21:21)
[2020-02-07] MEDS: amLODIPine BESYLATE 10 MG TABLET (FP) NGT SCH (10:33)
[2020-02-07] MEDS: COLLAGENASE CLOSTRIDIUM HIST. 30 GRAMS TUBE TP SCH (10:34)
[2020-02-07] MEDS: MUPIROCIN 2% TOPICAL OINTMENT FOR DECOLONIZATION NS SCH ×2 (10:34→21:21)
--- NOTE | 2020-02-07 11:36 | PN ---
Teaching Attending Note Name of Resident: Kiley Devi ATTENDING PHYSICIAN STATEMENT I saw and evaluated the patient. I reviewed the resident's note and discussed the case with the resident. I agree with the resident's findings and plan as documented. SUBJECTIVE: Pt seen and examined in the ICU. Pt poorly responsive, saturating better on jonathan timask, placed on nasal cannula. Low grade temps. OBJECTIVE: Vital Signs Period Temp Pulse Resp BP Sys/Ramirez Pulse Ox Last 24 Hr 97.6 F-100.2 F 88-103 16-26 103-159/61-80 88-99 Intake & Output 02/04/20 02/05/20 02/06/20 02/07/20 23:59 23:59 23:59 23:59 Intake Total 003 604 9122 576 Output Total 0 0 1600 Balance 180 950 -510 576 Weight 44.089 kg 43.817 kg 44.633 kg 44.543 kg Gen: NAD at rest Heart: RRR Lung: less rhonchi Abd: soft, nontender Ext: no edema CBC, BMP 02/07/20 05:30 02/07/20 05:30 Active Medications Acetaminophen (Tylenol Oral Solution -) 650 mg PO Q6H PRN PRN Reason: PAIN LEVEL 4 - 6 Last Admin: 02/06/20 21:01 Dose: 650 mg Documented by: Albuterol/Ipratropium (Duoneb -) 1 amp NEB RQID [facility] Last Admin: 02/07/20 08:15 Dose: 1 amp Documented by: Amlodipine Besylate (Norvasc -) 10 mg NGT DAILY [facility] Last Admin: 02/07/20 10:33 Dose: 10 mg Documented by: Chlorhexidine Gluconate (Hibiclens For Decolonization -) 1 applic TP HS [facility] Last Admin: 02/06/20 21:00 Dose: 1 applic Documented by: Collagenase (Santyl -) 1 applic TP DAILY [facility]; Protocol Last Admin: 02/07/20 10:34 Dose: 1 applic Documented by: Guaifenesin (Robitussin -) 10 ml PO Q4H PRN PRN Reason: COUGH Sodium Chloride (Normal Saline -) 250 mls @ 3,000 mls/hr IV PRN PRN PRN Reason: Hypotension during Dialysis Stop: 02/04/20 09:19 Potassium Phosphate 15 mm/ (Dextrose) 255 mls @ 62.5 mls/hr IVPB ONCE ONE Stop: 02/07/20 13:04 Last Admin: 02/07/20 11:24 Dose: 62.5 mls/hr Documented by: Insulin Aspart (Novolog Vial Sliding Scale -) 1 vial SQ Q6HPO [facility]; Protocol Last Admin: 02/07/20 06:07 Dose: Not Given Documented by: Metoprolol Tartrate (Lopressor -) 25 mg PO BID [facility] Last Admin: 02/07/20 10:33 Dose: 25 mg Documented by: Mupirocin (Bactroban Ointment (For Decolonization) -) 1 applic NS BID [facility] Stop: 02/08/20 09:59 Last Admin: 02/07/20 10:34 Dose: 1 applic Documented by: Pantoprazole Sodium (Protonix Iv) 40 mg IVPUSH DAILY [facility] Last Admin: 02/07/20 10:33 Dose: 40 mg Documented by: ASSESSMENT AND PLAN: Acute Hypoxic Respiratory Failure Acute CVA Pneumonia likely Aspiration Acute Blood Loss Anemia ESRD on HD HTN DM Hyperlipidemia h/o CVA - completed antibiotics - monitor urine output, creatinine - O2 to keep SpO2 >90% - HD per renal - aspiration precautions - enteral feeds - DVT prophylaxis - continue discussions regarding goals of care, advanced directives - can monitor on floor
--- NOTE | 2020-02-07 12:42 | PN ---
Progress Note (short form) - Note Progress Note: -- maintaining on NC not in distress open eyes random no bleeding at GT site Vital Signs - 24 hr 02/06/20 02/06/20 02/06/20 14:00 16:00 18:00 Temperature 98.4 F Pulse Rate 103 H 98 H 96 H Respiratory 22 H 24 H 24 H Rate Blood Pressure 146/74 159/76 152/70 O2 Sat by Pulse 88 L 96 Oximetry (%) 02/06/20 02/06/20 02/07/20 20:11 22:00 00:00 Temperature 100.2 F H Pulse Rate 94 H 100 H Respiratory 22 H 22 H Rate Blood Pressure 141/73 151/72 O2 Sat by Pulse 96 96 96 Oximetry (%) 02/07/20 02/07/20 02/07/20 02:00 04:00 06:00 Temperature 97.6 F 98 F Pulse Rate 94 H 94 H 88 Respiratory 21 H 18 16 Rate Blood Pressure 155/69 140/80 155/72 O2 Sat by Pulse 98 98 98 Oximetry (%) 02/07/20 02/07/20 02/07/20 08:00 08:37 10:00 Temperature 98.6 F 98.5 F Pulse Rate 97 H 96 H Respiratory 16 22 H 18 Rate Blood Pressure 145/79 142/71 O2 Sat by Pulse 99 99 99 Oximetry (%) 02/07/20 02/07/20 11:40 12:00 Temperature Pulse Rate 85 94 H Respiratory 18 Rate Blood Pressure 147/73 O2 Sat by Pulse 100 Oximetry (%) Current Medications Generic Name Dose Route Start Last Admin Trade Name Freq PRN Reason Stop Dose Admin Acetaminophen 650 mg 02/05/20 00:53 02/06/20 21:01 Tylenol Oral Solution - PO 650 mg Q6H PRN Administration PAIN LEVEL 4 - 6 Albuterol/Ipratropium 1 amp 02/06/20 12:00 02/07/20 11:50 Duoneb - NEB 1 amp RQID JOSE Administration Amlodipine Besylate 10 mg 02/05/20 06:45 02/07/20 10:33 Norvasc - NGT 10 mg DAILY JOSE Administration Chlorhexidine Gluconate 1 applic 02/03/20 22:00 02/06/20 21:00 Hibiclens For Decolonization - TP 1 applic HS JOSE Administration Collagenase 1 applic 02/03/20 10:00 08/05/20 10:34 Santyl - TP 1 applic DAILY JOSE Administration Protocol Guaifenesin 10 ml 02/05/20 06:39 Robitussin - PO Q4H PRN COUGH Sodium Chloride 250 mls @ 3,000 mls/hr 02/03/20 09:18 Normal Saline - IV 02/04/20 09:19 PRN PRN Hypotension during Dialysis Potassium Phosphate 15 mm/ 255 mls @ 62.5 mls/hr 02/07/20 09:00 02/07/20 11: 24 Dextrose IVPB 02/07/20 13:04 62.5 mls/hr ONCE ONE Administration Insulin Aspart 1 vial 02/03/20 17:30 02/07/20 06:07 Novolog Vial Sliding Scale - SQ Not Given Q6HPO [facility] Protocol Metoprolol Tartrate 25 mg 02/04/20 22:00 02/07/20 10:33 Lopressor - PO 25 mg BID JOSE Administration Mupirocin 1 applic 02/03/20 10:00 02/07/20 10:34 Bactroban Ointment (For Decolonization) - NS 02/08/20 09:59 1 applic BID JOSE Administration Pantoprazole Sodium 40 mg 02/03/20 10:00 02/07/20 10:33 Protonix Iv IVPUSH 40 mg DAILY JOSE Administration Laboratory Results - last 24 hr 02/06/20 02/06/20 02/06/20 14:07 15:22 16:35 WBC RBC Hgb Hct MCV MCH MCHC RDW Plt Count MPV Absolute Neuts (auto) Neutrophils % Lymphocytes % Monocytes % Eosinophils % Basophils % Nucleated RBC % Anticoagulation Therapy No Result Required. Puncture Site Right radial Patient Temperature No Result Required. ABG pH 7.503 H ABG pCO2 38.60 ABG pO2 56.3 L ABG HCO3 29.6 H ABG O2 Sat (Measured) 91.8 L ABG O2 Content No Result Required. ABG Base Excess 6.1 H Sai Test Positive Patient On Oxygen Yes O2 Delivery Device V/m Oxygen Flow Rate 50 Vent Mode No Result Required. Vent Rate No Result Required. Mechanical Rate No Result Required. PEEP No Result Required. Pressure Support Vent No Result Required. Sodium Potassium Chloride Carbon Dioxide Anion Gap BUN Creatinine Est GFR (CKD-EPI)AfAm Est GFR (CKD-EPI)NonAf POC Glucometer 128 Random Glucose Calcium Phosphorus Magnesium Total Bilirubin AST ALT Alkaline Phosphatase Troponin I 4.74 H* Total Protein Albumin 02/06/20 02/07/20 02/07/20 23:28 05:30 05:30 WBC 16.7 H RBC 3.07 L Hgb 9.2 L Hct 28.5 L MCV 92.8 MCH 30.1 MCHC 32.4 RDW 18.2 H Plt Count 272 MPV 8.7 Absolute Neuts (auto) 14.9 H Neutrophils % 89.0 H Lymphocytes % 5.6 L Monocytes % 4.6 Eosinophils % 0.6 Basophils % 0.2 Nucleated RBC % 0 Anticoagulation Therapy Puncture Site Patient Temperature ABG pH ABG pCO2 ABG pO2 ABG HCO3 ABG O2 Sat (Measured) ABG O2 Content ABG Base Excess Sai Test Patient On Oxygen O2 Delivery Device Oxygen Flow Rate Vent Mode Vent Rate Mechanical Rate PEEP Pressure Support Vent Sodium 141 Potassium 3.4 L Chloride 104 Carbon Dioxide 27 Anion Gap 10 BUN 24.0 H Creatinine 2.3 H Est GFR (CKD-EPI)AfAm 23.15 Est GFR (CKD-EPI)NonAf 19.98 POC Glucometer 184 Random Glucose 241 H Calcium 7.7 L Phosphorus 1.5 L Magnesium 2.0 Total Bilirubin 0.4 AST 23 ALT 10 L Alkaline Phosphatase 279 H Troponin I Total Protein 5.3 L Albumin 1.2 L 02/07/20 02/07/20 06:04 12:15 WBC RBC Hgb Hct MCV MCH MCHC RDW Plt Count MPV Absolute Neuts (auto) Neutrophils % Lymphocytes % Monocytes % Eosinophils % Basophils % Nucleated RBC % Anticoagulation Therapy Puncture Site Patient Temperature ABG pH ABG pCO2 ABG pO2 ABG HCO3 ABG O2 Sat (Measured) ABG O2 Content ABG Base Excess Sai Test Patient On Oxygen O2 Delivery Device Oxygen Flow Rate Vent Mode Vent Rate Mechanical Rate PEEP Pressure Support Vent Sodium Potassium Chloride Carbon Dioxide Anion Gap BUN Creatinine Est GFR (CKD-EPI)AfAm Est GFR (CKD-EPI)NonAf POC Glucometer 195 172 Random Glucose Calcium Phosphorus Magnesium Total Bilirubin AST ALT Alkaline Phosphatase Troponin I Total Protein Albumin S1 S2 RRR left side edematous Lungs decreased Abd- soft, NT, GT+ No edema ct head showed large right mca cerebral edema with minimal hemorrhagic transformation repeat ct head done on january 28 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 ESRD on HD aspiration pneumonia acute respiratory failure -- palliative care on the case --completed iv antibiotics -- pt is FULL CODE -- continue with current care -- poor prognosis -- peg tube feedings -- monitor for fever, aspiration-- 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
--- NOTE | 2020-02-07 13:19 | PN ---
Progress Note, Physician History of Present Illness: 74 year old female with medical history of ESRD (on HD), hypertension, DMII, GERD, HTN, HL, aphasia and stroke 3 months ago, admitted to ICU fro ED for progressive weakness and reported unresponsiveness. Head CT showed (01/13) right pareital, occipital and temporal lobe suggestive of acute CVA no acute intracranial bleed ; Prolonged ICU course complicated by Acxute worsening of chronic anemia, likely from stomal bleed. Elevated TNIs most likely anemia induced ischemia. - Current Medication List Current Medications: Active Medications Acetaminophen (Tylenol Oral Solution -) 650 mg PO Q6H PRN PRN Reason: PAIN LEVEL 4 - 6 Last Admin: 02/06/20 21:01 Dose: 650 mg Documented by: Albuterol/Ipratropium (Duoneb -) 1 amp NEB RQID [facility] Last Admin: 02/07/20 11:50 Dose: 1 amp Documented by: Amlodipine Besylate (Norvasc -) 10 mg NGT DAILY [facility] Last Admin: 02/07/20 10:33 Dose: 10 mg Documented by: Chlorhexidine Gluconate (Hibiclens For Decolonization -) 1 applic TP HS [facility] Last Admin: 02/06/20 21:00 Dose: 1 applic Documented by: Collagenase (Santyl -) 1 applic TP DAILY [facility]; Protocol Last Admin: 02/07/20 10:34 Dose: 1 applic Documented by: Guaifenesin (Robitussin -) 10 ml PO Q4H PRN PRN Reason: COUGH Sodium Chloride (Normal Saline -) 250 mls @ 3,000 mls/hr IV PRN PRN PRN Reason: Hypotension during Dialysis Stop: 02/04/20 09:19 Insulin Aspart (Novolog Vial Sliding Scale -) 1 vial SQ Q6HPO [facility]; Protocol Last Admin: 02/07/20 06:07 Dose: Not Given Documented by: Metoprolol Tartrate (Lopressor -) 25 mg PO BID [facility] Last Admin: 02/07/20 10:33 Dose: 25 mg Documented by: Mupirocin (Bactroban Ointment (For Decolonization) -) 1 applic NS BID [facility] Stop: 02/08/20 09:59 Last Admin: 02/07/20 10:34 Dose: 1 applic Documented by: Pantoprazole Sodium (Protonix Iv) 40 mg IVPUSH DAILY [facility] Last Admin: 02/07/20 10:33 Dose: 40 mg Documented by: - Objective Vital Signs: Vital Signs Temperature 98.6 F 02/07/20 13:08 Pulse Rate 92 H 02/07/20 13:08 Respiratory Rate 18 02/07/20 13:08 Blood Pressure 147/73 02/07/20 12:00 O2 Sat by Pulse Oximetry (%) 100 02/07/20 11:40 Eyes: Yes: WNL, Conjunctiva Clear, EOM Intact HENT: Yes: WNL, Atraumatic, Normocephalic Neck: Yes: WNL, Supple, Trachea Midline Cardiovascular: Yes: WNL, Regular Rate and Rhythm Respiratory: Yes: WNL, Regular, CTA Bilaterally Gastrointestinal: Yes: WNL, Normal Bowel Sounds Genitourinary: Yes: WNL Musculoskeletal: Yes: WNL Extremities: Yes: WNL Edema: No Integumentary: Yes: WNL Labs: CBC, BMP 02/07/20 05:30 02/07/20 05:30 INR, PTT INR 1.56 (0.83-1.09) H 02/02/20 20:30 Fibrinogen 448.0 mg/dL (238-498) 02/05/20 06:00 Problem List - Problems (1) Altered mental status Code(s): R41.82 - ALTERED MENTAL STATUS, UNSPECIFIED (2) Anemia Code(s): D64.9 - ANEMIA, UNSPECIFIED (3) Lactic acidosis Code(s): E87.2 - ACIDOSIS (4) Pneumonia, aspiration Code(s): J69.0 - PNEUMONITIS DUE TO INHALATION OF FOOD AND VOMIT (5) Stroke Code(s): I63.9 - CEREBRAL INFARCTION, UNSPECIFIED (6) Clotted dialysis access Code(s): T82.49XA - OTH COMPLICATION OF VASCULAR DIALYSIS CATHETER, INIT ENCNTR (7) Diabetes Code(s): E11.9 - TYPE 2 DIABETES MELLITUS WITHOUT COMPLICATIONS (8) ESRD on dialysis Code(s): N18.6 - END STAGE RENAL DISEASE; Z99.2 - DEPENDENCE ON RENAL DIALYSIS (9) Hypertension Code(s): I10 - ESSENTIAL (PRIMARY) HYPERTENSION (10) SOB (shortness of breath) Code(s): R06.02 - SHORTNESS OF BREATH Assessment/Plan Acute right temporoparietal infarct -- Large MCA aspiration pneumonia ESRD -HD Respiratory failure severe Anemia New elevated TNIs - most likely due to demand ischemia due to severe anemia. New LBBB 7-25-20 s/p PEG Nl EF Moderater MR moderate PHT Plan: Replete K+ and PO4+ TNi trending down EKG: NSR; LBBB keep HCT around 30% Continue Metoprolol tartrate 25 BID Start ASA if cleared by Neuro and GI Further cardiac w/u will depend on mental status recovery cc time spent 35 min
[2020-02-07] MEDS ORDERED: SODIUM CHLORIDE 250 ML IV PRN (13:44)
--- NOTE | 2020-02-07 13:44 | PN ---
Progress Note (short form) - Note Progress Note: RENAL pt on telemetry she is unresponsive Last Vital Signs Temp Pulse Resp BP Pulse Ox 98.6 F 92 H 18 147/73 100 02/07/20 13:08 02/07/20 13:08 02/07/20 13:08 02/07/20 12:00 02/07/20 11:40 lungs clear cvs s1s2 rr +DAVE abd soft ext upper ext edema neuro unresponsive Current Medications Generic Name Dose Route Start Last Admin Trade Name Freq PRN Reason Stop Dose Admin Acetaminophen 650 mg 02/05/20 00:53 02/06/20 21:01 Tylenol Oral Solution - PO 650 mg Q6H PRN Administration PAIN LEVEL 4 - 6 Albuterol/Ipratropium 1 amp 02/06/20 12:00 02/07/20 11:50 Duoneb - NEB 1 amp RQID JOSE Administration Amlodipine Besylate 10 mg 02/05/20 06:45 02/07/20 10:33 Norvasc - NGT 10 mg DAILY JOSE Administration Chlorhexidine Gluconate 1 applic 02/03/20 22:00 02/06/20 21:00 Hibiclens For Decolonization - TP 1 applic HS JOSE Administration Collagenase 1 applic 02/03/20 10:00 02/07/20 10:34 Santyl - TP 1 applic DAILY JOSE Administration Protocol Guaifenesin 10 ml 02/05/20 06:39 Robitussin - PO Q4H PRN COUGH Sodium Chloride 250 mls @ 3,000 mls/hr 02/03/20 09:18 Normal Saline - IV 02/04/20 09:19 PRN PRN Hypotension during Dialysis Insulin Aspart 1 vial 02/03/20 17:30 02/07/20 06:07 Novolog Vial Sliding Scale - SQ Not Given Q6HPO JOSE Protocol Metoprolol Tartrate 25 mg 02/04/20 22:00 02/07/20 10:33 Lopressor - PO 25 mg BID JOSE Administration Mupirocin 1 applic 02/03/20 10:00 02/07/20 10:34 Bactroban Ointment (For Decolonization) - NS 02/08/20 09:59 1 applic BID JOSE Administration Pantoprazole Sodium 40 mg 02/03/20 10:00 02/07/20 10:33 Protonix Iv IVPUSH 40 mg DAILY JOSE Administration CBC, BMP 02/07/20 05:30 02/07/20 05:30 IMPRESSION esrd htn s/p cva x 2- unresponsive hypokalemia resolved covid 19 neg hypernatremia resolved PLAN will write orders for tomorrow for dialysis cardiology note read and appreciated needs 3 k bath MV
[2020-02-07] MEDS: CHLORHEXIDINE GLUCONATE 4% CLEANSER FOR DECOLONIZATION TP SCH (21:21)
[2020-02-07] MEDS: ACETAMINOPHEN 650 MG/20.3 ML ORAL SOLUTION (CUPS) PO PRN (21:22)
[2020-02-08] MEDS: INSULIN SLIDING SCALE (NOVOLOG) 1 VIAL SQ SCH ×4 (00:15→17:47)
[2020-02-08] MEDS ORDERED: PT OWN MED DRAWER 7, Y5N ONE (06:16)
[2020-02-08 07:10] LABS: BASO % 0.3 % (0-2.0); EOS % 1.2 % (0-4.5); HEMATOCRIT 26.1 % (32.4-45.2); HEMOGLOBIN 8.5 GM/dL (10.7-15.3); MCH 30.5 pg (25.7-33.7); MCHC 32.6 g/dl (32.0-36.0); MEAN CELL VOLUME 93.4 fl (80-96); MEAN PLT VOLUME 8.9 fl (7.5-11.1); MONO % 6.2 % (3.8-10.2); NEUT % 86.3 % (42.8-82.8); PLATELET COUNT 245 K/MM3 (134-434); RDW 18.2 % (11.6-15.6); WHITE BLOOD COUNT 12.7 K/mm3 (4.0-10.0)
--- NOTE | 2020-02-08 07:40 | PN ---
Physical Exam: SUBJECTIVE: Patient seen and examined. Remains minimally responsive. Saturating well on nasal cannula. OBJECTIVE: Vital Signs Period Temp Pulse Resp BP Sys/Ramirez Pulse Ox Last 24 Hr 98.5 F-99.9 F 80-98 15-22 131-147/67-79 97-100 GENERAL: Winces to sternal rub. HEENT: NCAT, pupils sluggish. On nasal cannula. CARDIAC: regular rate and rhythm. +S1, S2, no murmurs. PULMONARY: Decreased breath sounds b/l GI: Peg tube in place. Soft, bowel sounds present, non-distended. EXTREMITIES: warm, well-perfused, no edema present. SKIN: warm, dry Laboratory Last Values WBC 12.7 K/mm3 (4.0-10.0) H 02/08/20 05:30 RBC 2.80 M/mm3 (3.60-5.2) L 02/08/20 05:30 Hgb 8.5 GM/dL (10.7-15.3) L 02/08/20 05:30 Hct 26.1 % (32.4-45.2) L 02/08/20 05:30 MCV 93.4 fl (80-96) 02/08/20 05:30 MCH 30.5 pg (25.7-33.7) 02/08/20 05:30 MCHC 32.6 g/dl (32.0-36.0) 02/08/20 05:30 RDW 18.2 % (11.6-15.6) H 02/08/20 05:30 Plt Count 245 K/MM3 (134-434) 02/08/20 05:30 MPV 8.9 fl (7.5-11.1) 02/08/20 05:30 Absolute Neuts (auto) 11.0 K/mm3 (1.5-8.0) H 02/08/20 05:30 Total Counted 100 01/15/20 08:40 Neutrophils % 86.3 % (42.8-82.8) H 02/08/20 05:30 Neutrophils % (Manual) 79.0 % (42.8-82.8) 01/15/20 08:40 Band Neutrophils % 2.0 % 01/15/20 08:40 Lymphocytes % 6.0 % (8-40) L 02/08/20 05:30 Lymphocytes % (Manual) 13.0 % (8-40) 01/15/20 08:40 Monocytes % 6.2 % (3.8-10.2) 02/08/20 05:30 Monocytes % (Manual) 4 % (3.8-10.2) 01/15/20 08:40 Eosinophils % 1.2 % (0-4.5) D 02/08/20 05:30 Eosinophils % (Manual) 0.0 % (0-4.5) 01/15/20 08:40 Basophils % 0.3 % (0-2.0) 02/08/20 05:30 Basophils % (Manual) 1.0 % (0-2.0) 01/15/20 08:40 Nucleated RBC % 0 % (0-0) 02/08/20 05:30 Metamyelocytes 1 % (0-2) 01/15/20 08:40 Hypochromia 0 01/18/20 06:10 Platelet Estimate Increased 01/31/20 06:10 Platelet Comment No clumping noted 01/15/20 08:40 Platelet Comment Large platelets 01/15/20 08:40 Polychromasia 1+ 01/18/20 06:10 Poikilocytosis 1+ 01/18/20 06:10 Anisocytosis 1+ 01/18/20 06:10 Microcytosis 1+ 01/18/20 06:10 Macrocytosis 0 01/18/20 06:10 Andrea Cells 1+ 01/18/20 06:10 Haptoglobin 246 mg/dL (42-346) 02/02/20 20:30 PT with INR 18.50 SEC (9.7-13.0) H 02/02/20 20:30 INR 1.56 (0.83-1.09) H 02/02/20 20:30 PTT (Actin FS) 39.3 SECONDS (25.2-36.5) H 02/02/20 20:30 Fibrinogen 448.0 mg/dL (238-498) 02/05/20 06:00 D-Dimer 1385 ng/ml (0-500) H 02/02/20 20:30 Anticoagulation Therapy No Result Required. 02/06/20 14:07 Puncture Site Right radial 02/06/20 14:07 Patient Temperature No Result Required. 02/06/20 14:07 ABG pH 7.503 (7.350-7.450) H 02/06/20 14:07 ABG pCO2 38.60 mmHg (35-45) 02/06/20 14:07 ABG pO2 56.3 mmHg (80-100) L 02/06/20 14:07 ABG HCO3 29.6 mmol/L (22-27) H 02/06/20 14:07 ABG O2 Sat (Measured) 91.8 mmHg (95-98) L 02/06/20 14:07 ABG O2 Content No Result Required. 02/06/20 14:07 ABG Base Excess 6.1 mmol/L (-2-2) H 02/06/20 14:07 Sai Test Positive 02/06/20 14:07 VBG pH 7.309 (7.310-7.410) L 01/14/20 20:30 POC VBG pCO2 50.0 mmHg (38-52) 01/14/20 20:30 POC VBG pO2 68.5 mmHg (28-48) H 01/14/20 20:30 VBG HCO3 24.6 mmol/L (23-29) 01/14/20 20:30 VBG O2 Sat (Rayray) 91.9 % (70-80) H 01/14/20 20:30 VBG Base Excess -2.2 mmol/L (-2-2) L 01/14/20 20:30 Patient On Oxygen Yes 02/06/20 14:07 O2 Delivery Device V/m 02/06/20 14:07 Oxygen Flow Rate 50 02/06/20 14:07 Vent Mode No Result Required. 02/06/20 14:07 Vent Rate No Result Required. 02/06/20 14:07 Mechanical Rate No Result Required. 02/06/20 14:07 PEEP No Result Required. 02/06/20 14:07 Pressure Support Vent No Result Required. 02/06/20 14:07 Sodium 142 mmol/L (136-145) 02/08/20 05:30 Potassium 3.5 mmol/L (3.5-5.1) 02/08/20 05:30 Chloride 104 mmol/L (98-107) 02/08/20 05:30 Carbon Dioxide 27 mmol/L (21-32) 02/08/20 05:30 Anion Gap 11 MMOL/L (8-16) 02/08/20 05:30 BUN 34.7 mg/dL (7-18) H 02/08/20 05:30 Creatinine 2.8 mg/dL (0.55-1.3) H 02/08/20 05:30 Est GFR (CKD-EPI)AfAm 18.25 02/08/20 05:30 Est GFR (CKD-EPI)NonAf 15.75 02/08/20 05:30 POC Glucometer 225 UNITS (80-120) 02/08/20 17:20 Random Glucose 203 mg/dL (74-106) H 02/08/20 05:30 Lactic Acid 1.9 mmol/L (0.4-2.0) 01/26/20 23:40 Calcium 7.4 mg/dL (8.5-10.1) L 02/08/20 05:30 Phosphorus 2.0 mg/dL (2.5-4.9) L 02/08/20 05:30 Magnesium 2.1 mg/dL (1.8-2.4) 02/08/20 05:30 Iron 10 ug/dL (50-175) L 02/02/20 20:30 TIBC 53 ug/dL (250-450) L 02/02/20 20:30 Iron Saturation 18 % (17.5-39) 02/02/20 20:30 Unsaturated IBC 43 ug/dL (200-275) L 02/02/20 20:30 Ferritin 3483.5 ng/ml (8-388) H 02/02/20 20:30 Total Bilirubin 0.3 mg/dL (0.2-1) 02/08/20 05:30 Direct Bilirubin 0.1 mg/dL (0.0-0.2) 01/28/20 05:40 AST 18 U/L (15-37) 02/08/20 05:30 ALT 8 U/L (13-61) L 02/08/20 05:30 Alkaline Phosphatase 283 U/L (45-117) H 02/08/20 05:30 LD Total 368 U/L (84-246) H 02/03/20 10:30 Creatine Kinase 61 U/L (26-192) 02/03/20 10:30 Troponin I 4.74 ng/ml (0.00-0.05) H* 02/06/20 15:22 Total Protein 5.1 g/dl (6.4-8.2) L 02/08/20 05:30 Albumin 1.1 g/dl (3.4-5.0) L 02/08/20 05:30 Beta-Hydroxybutyrate 8.7 mg/dL (0.2-2.8) H 01/15/20 08:40 TSH 1.32 uIU/ml (0.358-3.74) 01/14/20 20:10 Stool Occult Blood Positive (NEGATIVE) 02/02/20 21:00 COVID-19 ([facility]) Not detected (Not Detected) 01/15/20 00:30 Hep Bs Antigen Negative (Negative) 01/15/20 14:50 Hep C Ab Diagnostic 0.1 s/co ratio (0.0-0.9) 01/15/20 14:50 Blood Type O POSITIVE 02/01/20 11:10 Antibody Screen Negative 02/01/20 11:10 Direct Antiglob Test Positive (NEGATIVE) 02/02/20 19:35 Crossmatch See Detail 02/02/20 19:35 Active Medications Acetaminophen (Tylenol Oral Solution -) 650 mg PO Q6H PRN PRN Reason: PAIN LEVEL 4 - 6 Last Admin: 02/07/20 21:22 Dose: 650 mg Documented by: Albuterol/Ipratropium (Duoneb -) 1 amp NEB RQID [facility] Last Admin: 02/08/20 15:40 Dose: 1 amp Documented by: Amlodipine Besylate (Norvasc -) 10 mg NGT DAILY [facility] Last Admin: 02/08/20 09:48 Dose: 10 mg Documented by: Banana Based Medical Food (Banatrol Plus Powder Packet) 1 packet PO TID [facility] Chlorhexidine Gluconate (Hibiclens For Decolonization -) 1 applic TP HS [facility] Last Admin: 02/07/20 21:21 Dose: 1 applic Documented by: Collagenase (Santyl -) 1 applic TP DAILY [facility]; Protocol Last Admin: 02/08/20 09:48 Dose: 1 applic Documented by: Guaifenesin (Robitussin -) 10 ml PO Q4H PRN PRN Reason: COUGH Sodium Chloride (Normal Saline -) 250 mls @ 3,000 mls/hr IV PRN PRN PRN Reason: Hypotension during Dialysis Stop: 02/08/20 13:44 Insulin Aspart (Novolog Vial Sliding Scale -) 1 vial SQ Q6HPO [facility]; Protocol Last Admin: 02/08/20 17:47 Dose: 2 units Documented by: Metoprolol Tartrate (Lopressor -) 25 mg PO BID [facility] Last Admin: 02/08/20 09:48 Dose: 25 mg Documented by: Pantoprazole Sodium (Protonix Packets For Oral Suspension -) 40 mg PO DAILY [facility] ASSESSMENT/PLAN: 74 year old female w/ PMH of CVA, ESRD on HD, HTN, HLD, DM, sacral ulcer admitted to ICU for acute hypoxic respiratory failure. Pt was on 4S with SpO2 ~70 with increased work of breathing. Thus, rapid response called. Pt was intubated and admitted to ICU for acute hypoxic respiratory failure. Family was notified of pt's condition and rescinded DNR. Pt tolerated CPAP mode and was extubated 01/29. GOC discussion ongoing. Pt received Peg tube 01/30. Overnight, pt had bleeding at the Peg tube site, despite compression for 15 minutes and surgiceal. 2 additional stitches and surgiceal were placed. Bleeding stopped. Sutures removed 02/04. Peg tube site remained dry and not bleeding. CT abd done due to investigation of dropping H/H, however, resulted in extravasation of contrast of L arm. Elevated coags debbie concern for DIC. Tele monitor showed rhythm changes, troponin elevated (5.2). EKG suggested NSTEMI, however, holding AC due to persistently dropping H/H. Troponin had decreased and pt's H/H has since stabilized and has not required any additional units of pRBC. Pt is currently saturating well on NC and is hemodynamically stable. Pt is medically optimized and can be further managed in the medical surgical floor or discharge to prison. No acute events overnight. Neuro CVA history Bihemispheric stroke with minimal responsiveness -Off sedation, minimally responsive at baseline. -assess mental status. -CT head showed moderate size subacute infarct in L frontal lobe. Large R MCA subacute infarct w/ suggestion of interval minimal hemorrhagic transformation seen in R frontal lobe. -Neuro consulted. Recommended continued supportive care. Poor prognosis. -Hold Plavix due to possible bleeding. Cardiac PMH HTN PMH HLD -c/w labetolol, amlodipine -Held lipitor, given transaminitis -Monitor and maintain MAP>65 -Monitor H/H and transfuse to keep Hb>8 -Cardio consulted. Recommended continue 25 mg metoprolol BID, amlodipine. Further cardiac workup depending on mental status. Keep Hct 30%. -Heme/Onc consulted. -Tele monitor showed change. EKG showed L bundle branch block. -Echo showed LV EF 55-60%, impaired relaxation, moderate pulmonary HTN. EKG with no changes, persistent L bundle branch block, normal sinus -Elevated troponin likely due to anemia induced ischemia. Troponin downtrending. Pulmonary Atelectasis Acute hypoxic respiratory failure Aspiration PNA -CXR on 02/05 - L pulmonary and pleural changes. Improved aeration of L lung. -Extubated 01/29. -c/w Chest physiotherapy and positional therapy -c/w suction of nasal/oropharynx -Spoke to respiratory in regards to curved suction to reach mucus plug in L bronchus, however, respiratory therapist and supervisor [employer] department stated there is no "closed-loop" suction to use for this pt and that the curved suction is only compatible to pt's on a ventilator. -aspiration precautions -c/w guaifenesin, duoneb -ABG shows metabolic alkalosis -Supplemental O2 to keep SpO2 >90%, currently saturating 100% on 4L NC GI s/p PEG placement Transaminitis -Peg tube placed 01/30 Renal Hypokalemia, improved ESRD on HD -Nephro consulted. Continue current management. Received HD on 02/07 with K b ath. -monitor I/O's ID Aspiration PNA Sacral ulcer Leukocytosis -Afebrile -Completed antibiotics course. -Continue application Collegenase (Santyl) -ID consulted. -COVID negative -C diff negative -blood cultures negative thus far Endocrine Hypoglycemia, improved Diabetes mellitus Hypokalemia -ISS + BGM FEN -NS, for hypotension during HD -follow electrolytes and replete as needed -Feeds at 35 (nepro) as per dietary Px -DVT: SCD b/l -GI: PPI LTD -Peg 01/30 -[facility] 02/01 -Permacath R side Family discussion/code status: Goals of care discussion ongoing. Palliative care saw pt, discussed GOC with family. Dr. Vega spoke to family about GOC. FULL CODE. Dispo: Transfer to medical surgical floor or discharge to prison for further management. Visit type - Emergency Visit Emergency Visit: Yes ED Registration Date: 01/15/20 Care time: The patient presented to the Emergency Department on the above date and was hospitalized for further evaluation of their emergent condition. - New Patient This patient is new to me today: No - Critical Care Critical Care patient: Yes Total Critical Care Time (in minutes): 36 Critical Care Statement: The care of this patient involved high complexity decision making to prevent further life threatening deterioration of the patient's condition and/or to evaluate & treat vital organ system(s) failure or risk of failure. - Medication Review Med list reviewed for High Risk Meds patients 65 and older: Yes ATTENDING PHYSICIAN STATEMENT I saw and evaluated the patient. I reviewed the resident's note and discussed the case with the resident. I agree with the resident's findings and plan as documented. SUBJECTIVE: OBJECTIVE: ASSESSMENT AND PLAN:
[2020-02-08] MEDS: ALBUTEROL SO4 2.5/IPRATROPIUM 0.5 INH SOL 3 ML VIAL.NEB. NEB SCH ×4 (08:00→20:10)
[2020-02-08 08:10] LABS: ALBUMIN 1.1 g/dl (3.4-5.0); BILIRUBIN,TOTAL 0.3 mg/dL (0.2-1); BLOOD UREA NITROGEN 34.7 mg/dL (7-18); CALCIUM 7.4 mg/dL (8.5-10.1); CREATININE 2.8 mg/dL (0.55-1.3); MAGNESIUM 2.1 mg/dL (1.8-2.4); POTASSIUM 3.5 mmol/L (3.5-5.1); TOT PROT 5.1 g/dl (6.4-8.2)
[2020-02-08] MEDS: PANTOPRAZOLE SODIUM 40 MG VIAL IVPUSH SCH (09:48)
[2020-02-08] MEDS: COLLAGENASE CLOSTRIDIUM HIST. 30 GRAMS TUBE TP SCH (09:48)
[2020-02-08] MEDS: METOPROLOL TARTRATE 25 MG TABLET (FP) PO SCH ×2 (09:48→21:34)
[2020-02-08] MEDS: amLODIPine BESYLATE 10 MG TABLET (FP) NGT SCH (09:48)
--- NOTE | 2020-02-08 10:01 | PN ---
Progress Note (short form) - Note Progress Note: RENAL pt on telemetry she is unresponsive currently on hemodialysis Last Vital Signs Temp Pulse Resp BP Pulse Ox 98.2 F 95 H 18 135/66 100 02/08/20 07:50 02/08/20 09:00 02/08/20 09:00 02/08/20 09:00 02/08/20 06:00 lungs clear cvs s1s2 rr +DAVE abd soft ext upper ext edema neuro unresponsive Current Medications Generic Name Dose Route Start Last Admin Trade Name Freq PRN Reason Stop Dose Admin Acetaminophen 650 mg 02/05/20 00:53 02/07/20 21:22 Tylenol Oral Solution - PO 650 mg Q6H PRN Administration PAIN LEVEL 4 - 6 Albuterol/Ipratropium 1 amp 02/06/20 12:00 02/08/20 08:00 Duoneb - NEB 1 amp RQID JOSE Administration Amlodipine Besylate 10 mg 02/05/20 06:45 02/08/20 09:48 Norvasc - NGT 10 mg DAILY JOSE Administration Chlorhexidine Gluconate 1 applic 02/03/20 22:00 02/07/20 21:21 Hibiclens For Decolonization - TP 1 applic HS JOSE Administration Collagenase 1 applic 02/03/20 10:00 02/08/20 09:48 Santyl - TP 1 applic DAILY JOSE Administration Protocol Guaifenesin 10 ml 02/05/20 06:39 Robitussin - PO Q4H PRN COUGH Sodium Chloride 250 mls @ 3,000 mls/hr 02/07/20 13:44 Normal Saline - IV 02/08/20 13:44 PRN PRN Hypotension during Dialysis Insulin Aspart 1 vial 02/03/20 17:30 02/08/20 06:02 Novolog Vial Sliding Scale - SQ Not Given Q6HPO JOSE Protocol Metoprolol Tartrate 25 mg 02/04/20 22:00 02/08/20 09:48 Lopressor - PO 25 mg BID JOSE Administration Pantoprazole Sodium 40 mg 02/03/20 10:00 02/08/20 09:48 Protonix Iv IVPUSH 40 mg DAILY JOSE Administration CBC, BMP 02/08/20 05:30 02/08/20 05:30 IMPRESSION esrd htn s/p cva x 2- unresponsive hypokalemia resolved covid 19 neg hypernatremia resolved PLAN continue current management no objection with dc to halfway [facility]
--- NOTE | 2020-02-08 11:31 | PN ---
Teaching Attending Note Name of Resident: Kiley Devi ATTENDING PHYSICIAN STATEMENT I saw and evaluated the patient. I reviewed the resident's note and discussed the case with the resident. I agree with the resident's findings and plan as documented. SUBJECTIVE: Pt seen and examined in the ICU. Pt poorly responsive, saturating well on nasal cannula. Being dialyzed. OBJECTIVE: Vital Signs Period Temp Pulse Resp BP Sys/Ramirez Pulse Ox Last 24 Hr 98.2 F-99.9 F 80-98 15-22 131-147/62-78 97-100 Intake & Output 02/05/20 02/06/20 02/07/20 02/08/20 23:59 23:59 23:59 23:59 Intake Total 950 1090 1373 576 Output Total 0 1600 0 0 Balance 950 -510 1373 576 Weight 43.817 kg 44.633 kg 44.543 kg 44.135 kg Gen: NAD at rest Heart: RRR Lung: less rhonchi Abd: soft, nontender Ext: no edema CBC, BMP 02/08/20 05:30 02/08/20 05:30 Active Medications Acetaminophen (Tylenol Oral Solution -) 650 mg PO Q6H PRN PRN Reason: PAIN LEVEL 4 - 6 Last Admin: 02/07/20 21:22 Dose: 650 mg Documented by: Albuterol/Ipratropium (Duoneb -) 1 amp NEB RQID [facility] Last Admin: 02/08/20 08:00 Dose: 1 amp Documented by: Amlodipine Besylate (Norvasc -) 10 mg NGT DAILY [facility] Last Admin: 02/08/20 09:48 Dose: 10 mg Documented by: Chlorhexidine Gluconate (Hibiclens For Decolonization -) 1 applic TP HS [facility] Last Admin: 02/07/20 21:21 Dose: 1 applic Documented by: Collagenase (Santyl -) 1 applic TP DAILY [facility]; Protocol Last Admin: 02/08/20 09:48 Dose: 1 applic Documented by: Guaifenesin (Robitussin -) 10 ml PO Q4H PRN PRN Reason: COUGH Sodium Chloride (Normal Saline -) 250 mls @ 3,000 mls/hr IV PRN PRN PRN Reason: Hypotension during Dialysis Stop: 02/08/20 13:44 Insulin Aspart (Novolog Vial Sliding Scale -) 1 vial SQ Q6HPO [facility]; Protocol Last Admin: 02/08/20 06:02 Dose: Not Given Documented by: Metoprolol Tartrate (Lopressor -) 25 mg PO BID [facility] Last Admin: 02/08/20 09:48 Dose: 25 mg Documented by: Pantoprazole Sodium (Protonix Iv) 40 mg IVPUSH DAILY [facility] Last Admin: 02/08/20 09:48 Dose: 40 mg Documented by: ASSESSMENT AND PLAN: Acute Hypoxic Respiratory Failure Acute CVA Pneumonia likely Aspiration Acute Blood Loss Anemia ESRD on HD HTN DM Hyperlipidemia h/o CVA - completed antibiotics - monitor urine output, creatinine - O2 to keep SpO2 >90% - HD per renal - aspiration precautions - enteral feeds - DVT prophylaxis - continue discussions regarding goals of care, advanced directives - can monitor on floor or d/c back to SNF
--- NOTE | 2020-02-08 11:40 | PN ---
Progress Note (short form) - Note Progress Note: 74 year old female brought patient from [place] for unreponsivness for two days prior to admission. Patient has history of stroke three months ago and has been decline since than. Patient has no seizure, she has high wbc and suspected to have aspiration pneumonia. Patient has large right mca cerebral edema. patient was intubated as family cancelled DNR. Over last few days, she has peg tube placed and extubated. She do not follow command, and able to open eye and winces to pain NEUROLOGICAL EXAMINATION Patient is comatose, and wince to pain, neck is supple afebrile pupils is small sluggsihly reactive gag and corneal reflex is present bp is maintained ct head showed large right mca cerebral edema with miniml hemorrhagic transformation repeat ct head done on january 28 Assessment/Plan 1. Large right mca acute stroke also old left mca stroke now she has bihemispheric stroke with minimal reponsivness, Plan: prongnosis is poor - continue supportive care - dvt prophylaxis, Pippa sol so much Norman Plascencia MD
--- NOTE | 2020-02-08 12:14 | PN ---
Progress Note, Physician History of Present Illness: 74 year old female with medical history of ESRD (on HD), hypertension, DMII, GERD, HTN, HL, aphasia and stroke 3 months ago, admitted to ICU fro ED for progressive weakness and reported unresponsiveness. Head CT showed (01/13) right pareital, occipital and temporal lobe suggestive of acute CVA no acute intracranial bleed ; Prolonged ICU course complicated by Acxute worsening of chronic anemia, likely from stomal bleed. Elevated TNIs most likely anemia induced ischemia. - Current Medication List Current Medications: Active Medications Acetaminophen (Tylenol Oral Solution -) 650 mg PO Q6H PRN PRN Reason: PAIN LEVEL 4 - 6 Last Admin: 02/07/20 21:22 Dose: 650 mg Documented by: Albuterol/Ipratropium (Duoneb -) 1 amp NEB RQID [facility] Last Admin: 02/08/20 11:54 Dose: 1 amp Documented by: Amlodipine Besylate (Norvasc -) 10 mg NGT DAILY [facility] Last Admin: 02/08/20 09:48 Dose: 10 mg Documented by: Chlorhexidine Gluconate (Hibiclens For Decolonization -) 1 applic TP HS [facility] Last Admin: 02/07/20 21:21 Dose: 1 applic Documented by: Collagenase (Santyl -) 1 applic TP DAILY [facility]; Protocol Last Admin: 02/08/20 09:48 Dose: 1 applic Documented by: Guaifenesin (Robitussin -) 10 ml PO Q4H PRN PRN Reason: COUGH Sodium Chloride (Normal Saline -) 250 mls @ 3,000 mls/hr IV PRN PRN PRN Reason: Hypotension during Dialysis Stop: 02/08/20 13:44 Insulin Aspart (Novolog Vial Sliding Scale -) 1 vial SQ Q6HPO [facility]; Protocol Last Admin: 02/08/20 06:02 Dose: Not Given Documented by: Metoprolol Tartrate (Lopressor -) 25 mg PO BID [facility] Last Admin: 02/08/20 09:48 Dose: 25 mg Documented by: Pantoprazole Sodium (Protonix Iv) 40 mg IVPUSH DAILY [facility] Last Admin: 02/08/20 09:48 Dose: 40 mg Documented by: - Objective Vital Signs: Vital Signs Temperature 98.8 F 02/08/20 10:00 Pulse Rate 96 H 08/06/20 11:25 Respiratory Rate 16 02/08/20 11:25 Blood Pressure 156/73 02/08/20 11:25 O2 Sat by Pulse Oximetry (%) 100 02/08/20 09:00 Eyes: Yes: WNL, Conjunctiva Clear, EOM Intact HENT: Yes: WNL, Atraumatic, Normocephalic Neck: Yes: WNL, Supple, Trachea Midline Cardiovascular: Yes: WNL, Regular Rate and Rhythm Respiratory: Yes: WNL, Regular, CTA Bilaterally Gastrointestinal: Yes: WNL, Normal Bowel Sounds Genitourinary: Yes: WNL Musculoskeletal: Yes: WNL Extremities: Yes: WNL Edema: No Integumentary: Yes: WNL Labs: CBC, BMP 02/08/20 05:30 02/08/20 05:30 INR, PTT INR 1.56 (0.83-1.09) H 02/02/20 20:30 Fibrinogen 448.0 mg/dL (238-498) 02/05/20 06:00 Problem List - Problems (1) Altered mental status Code(s): R41.82 - ALTERED MENTAL STATUS, UNSPECIFIED (2) Anemia Code(s): D64.9 - ANEMIA, UNSPECIFIED (3) Lactic acidosis Code(s): E87.2 - ACIDOSIS (4) Pneumonia, aspiration Code(s): J69.0 - PNEUMONITIS DUE TO INHALATION OF FOOD AND VOMIT (5) Stroke Code(s): I63.9 - CEREBRAL INFARCTION, UNSPECIFIED (6) Clotted dialysis access Code(s): T82.49XA - OTH COMPLICATION OF VASCULAR DIALYSIS CATHETER, INIT ENCNTR (7) Diabetes Code(s): E11.9 - TYPE 2 DIABETES MELLITUS WITHOUT COMPLICATIONS (8) ESRD on dialysis Code(s): N18.6 - END STAGE RENAL DISEASE; Z99.2 - DEPENDENCE ON RENAL DIALYSIS (9) Hypertension Code(s): I10 - ESSENTIAL (PRIMARY) HYPERTENSION (10) SOB (shortness of breath) Code(s): R06.02 - SHORTNESS OF BREATH Assessment/Plan Acute right temporoparietal infarct -- Large MCA aspiration pneumonia ESRD -HD Respiratory failure severe Anemia New elevated TNIs - most likely due to demand ischemia due to severe anemia. New LBBB 7-25-20 s/p PEG Nl EF Moderater MR moderate PHT Plan: Replete K+ and PO4+ TNi trending down EKG: NSR; LBBB keep HCT around 30% Continue Metoprolol tartrate 25 BID Start ASA if cleared by Neuro and GI Further cardiac w/u will depend on mental status recovery cc time spent 35 min
--- NOTE | 2020-02-08 12:44 | PN ---
Progress Note (short form) - Note Progress Note: maintaining on NC not in distress winces when examined open eyes random no bleeding at GT site Vital Signs - 24 hr 02/07/20 02/07/20 02/07/20 13:08 14:00 16:00 Temperature 98.6 F Pulse Rate 92 H 97 H Respiratory 18 22 H Rate Blood Pressure 147/72 O2 Sat by Pulse 100 99 Oximetry (%) 02/07/20 02/07/20 02/07/20 18:00 20:00 21:00 Temperature 99.9 F H 99.7 F H Pulse Rate 96 H 98 H Respiratory 20 20 Rate Blood Pressure 139/76 143/72 O2 Sat by Pulse 100 97 97 Oximetry (%) 02/07/20 02/08/20 02/08/20 22:00 00:00 02:00 Temperature 99.6 F 98.9 F 98.7 F Pulse Rate 97 H 80 84 Respiratory 21 H 20 15 Rate Blood Pressure 137/71 131/75 133/75 O2 Sat by Pulse 100 100 100 Oximetry (%) 02/08/20 02/08/20 02/08/20 04:00 06:00 07:50 Temperature 98.9 F 98.2 F Pulse Rate 82 86 96 H Respiratory 16 21 H 17 Rate Blood Pressure 147/69 141/67 140/68 O2 Sat by Pulse 100 Oximetry (%) 02/08/20 02/08/20 02/08/20 08:00 08:30 09:00 Temperature Pulse Rate 88 92 H 95 H Respiratory 22 H 18 18 Rate Blood Pressure 139/62 132/62 135/66 O2 Sat by Pulse 100 Oximetry (%) 02/08/20 02/08/20 02/08/20 09:30 10:00 10:30 Temperature 98.8 F Pulse Rate 96 H 97 H 90 Respiratory 15 16 18 Rate Blood Pressure 139/78 132/72 138/78 O2 Sat by Pulse Oximetry (%) 02/08/20 02/08/20 02/08/20 11:00 11:25 12:00 Temperature Pulse Rate 98 H 96 H 88 Respiratory 18 16 17 Rate Blood Pressure 138/90 156/73 148/67 O2 Sat by Pulse Oximetry (%) Current Medications Generic Name Dose Route Start Last Admin Trade Name Freq PRN Reason Stop Dose Admin Acetaminophen 650 mg 02/05/20 00:53 02/07/20 21:22 Tylenol Oral Solution - PO 650 mg Q6H PRN Administration PAIN LEVEL 4 - 6 Albuterol/Ipratropium 1 amp 02/06/20 12:00 02/08/20 11:54 Duoneb - NEB 1 amp RQID JOSE Administration Amlodipine Besylate 10 mg 02/05/20 06:45 02/08/20 09:48 Norvasc - NGT 10 mg DAILY JOSE Administration Chlorhexidine Gluconate 1 applic 02/03/20 22:00 02/07/20 21:21 Hibiclens For Decolonization - TP 1 applic HS JOSE Administration Collagenase 1 applic 02/03/20 10:00 02/08/20 09:48 Santyl - TP 1 applic DAILY JOSE Administration Protocol Guaifenesin 10 ml 02/05/20 06:39 Robitussin - PO Q4H PRN COUGH Sodium Chloride 250 mls @ 3,000 mls/hr 02/07/20 13:44 Normal Saline - IV 02/08/20 13:44 PRN PRN Hypotension during Dialysis Insulin Aspart 1 vial 02/03/20 17:30 02/08/20 12:36 Novolog Vial Sliding Scale - SQ Not Given Q6HPO JOSE Protocol Metoprolol Tartrate 25 mg 02/04/20 22:00 02/08/20 09:48 Lopressor - PO 25 mg BID JOSE Administration Pantoprazole Sodium 40 mg 02/03/20 10:00 02/08/20 09:48 Protonix Iv IVPUSH 40 mg DAILY JOSE Administration Laboratory Results - last 24 hr 02/07/20 02/08/20 02/08/20 17:14 00:02 05:30 WBC 12.7 H RBC 2.80 L Hgb 8.5 L Hct 26.1 L MCV 93.4 MCH 30.5 MCHC 32.6 RDW 18.2 H Plt Count 245 MPV 8.9 Absolute Neuts (auto) 11.0 H Neutrophils % 86.3 H Lymphocytes % 6.0 L Monocytes % 6.2 Eosinophils % 1.2 D Basophils % 0.3 Nucleated RBC % 0 Sodium Potassium Chloride Carbon Dioxide Anion Gap BUN Creatinine Est GFR (CKD-EPI)AfAm Est GFR (CKD-EPI)NonAf POC Glucometer 201 144 Random Glucose Calcium Phosphorus Magnesium Total Bilirubin AST ALT Alkaline Phosphatase Total Protein Albumin 02/08/20 02/08/20 02/08/20 05:30 05:59 12:07 WBC RBC Hgb Hct MCV MCH MCHC RDW Plt Count MPV Absolute Neuts (auto) Neutrophils % Lymphocytes % Monocytes % Eosinophils % Basophils % Nucleated RBC % Sodium 142 Potassium 3.5 Chloride 104 Carbon Dioxide 27 Anion Gap 11 BUN 34.7 H Creatinine 2.8 H Est GFR (CKD-EPI)AfAm 18.25 Est GFR (CKD-EPI)NonAf 15.75 POC Glucometer 188 156 Random Glucose 203 H Calcium 7.4 L Phosphorus 2.0 L Magnesium 2.1 Total Bilirubin 0.3 AST 18 ALT 8 L Alkaline Phosphatase 283 H Total Protein 5.1 L Albumin 1.1 L S1 S2 RRR left side edematous Lungs decreased Abd- soft, NT, GT+ No edema ct head showed large right mca cerebral edema with minimal hemorrhagic transformation repeat ct head done on january 28 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 ESRD on HD aspiration pneumonia acute respiratory failure -- palliative care on the case --completed iv antibiotics -- pt is FULL CODE -- continue with current care -- poor prognosis --tolerating peg feeds -- change meds over to GT -- she is maintaining airway, not congested -- dc planning to [facility] -- monitor for fever, aspiration Problem List - Problems (1) Altered mental status Code(s): R41.82 - ALTERED MENTAL STATUS, UNSPECIFIED (2) Lactic acidosis Code(s): E87.2 - ACIDOSIS (3) Pneumonia, aspiration Code(s): J69.0 - PNEUMONITIS DUE TO INHALATION OF FOOD AND VOMIT (4) Stroke Code(s): I63.9 - CEREBRAL INFARCTION, UNSPECIFIED (5) ESRD on dialysis Code(s): N18.6 - END STAGE RENAL DISEASE; Z99.2 - DEPENDENCE ON RENAL DIALYSIS (6) Hypertension Code(s): I10 - ESSENTIAL (PRIMARY) HYPERTENSION
[2020-02-08] MEDS: BANATROL PLUS POWDER PACKET PO SCH (21:34)
[2020-02-08] MEDS: CHLORHEXIDINE GLUCONATE 4% CLEANSER FOR DECOLONIZATION TP SCH (21:35)
[2020-02-09] MEDS: INSULIN SLIDING SCALE (NOVOLOG) 1 VIAL SQ SCH ×4 (00:47→17:37)
[2020-02-09 05:55] LABS: BASO % 1.5 % (0-2.0); EOS % 2.1 % (0-4.5); HEMATOCRIT 26.7 % (32.4-45.2); HEMOGLOBIN 8.7 GM/dL (10.7-15.3); LYMPH % 7.9 % (8-40); MCH 30.3 pg (25.7-33.7); MCHC 32.5 g/dl (32.0-36.0); MEAN CELL VOLUME 93.1 fl (80-96); MEAN PLT VOLUME 9.1 fl (7.5-11.1); MONO % 8.4 % (3.8-10.2); NEUT % 80.1 % (42.8-82.8); PLATELET COUNT 258 K/MM3 (134-434); RBC 2.86 M/mm3 (3.60-5.2); RDW 17.8 % (11.6-15.6); WHITE BLOOD COUNT 10.5 K/mm3 (4.0-10.0)
[2020-02-09 06:28] LABS: ALBUMIN 1.2 g/dl (3.4-5.0); BILIRUBIN,TOTAL 0.3 mg/dL (0.2-1); BLOOD UREA NITROGEN 28.1 mg/dL (7-18); CALCIUM 7.8 mg/dL (8.5-10.1); CREATININE 2.1 mg/dL (0.55-1.3); MAGNESIUM 2.1 mg/dL (1.8-2.4); POTASSIUM 3.4 mmol/L (3.5-5.1); TOT PROT 5.3 g/dl (6.4-8.2)
[2020-02-09 06:42] LABS: PHOSPHOROUS 1.1 mg/dL (2.5-4.9)
[2020-02-09] MEDS: BANATROL PLUS POWDER PACKET PO SCH ×3 (06:51→22:09)
[2020-02-09] MEDS: ALBUTEROL SO4 2.5/IPRATROPIUM 0.5 INH SOL 3 ML VIAL.NEB. NEB SCH ×4 (07:35→20:07)
[2020-02-09] MEDS ORDERED: guaiFENesin 200 MG/10 ML 10 ML UNIT-DOSE CUPS PO PRN (09:27)
--- NOTE | 2020-02-09 10:33 | PN ---
Progress Note, Physician History of Present Illness: PULMONARY POORLY RESPONSIVE,-RESP DISTRESS - Current Medication List Current Medications: Active Medications Acetaminophen (Tylenol Oral Solution -) 650 mg PO Q6H PRN PRN Reason: PAIN LEVEL 4 - 6 Albuterol/Ipratropium (Duoneb -) 1 amp NEB RQID JOSE Amlodipine Besylate (Norvasc -) 10 mg NGT DAILY [facility] Banana Based Medical Food (Banatrol Plus Powder Packet) 1 packet PO TID [facility] Last Admin: 02/09/20 06:51 Dose: 1 packet Documented by: Collagenase (Santyl -) 1 applic TP DAILY [facility]; Protocol Guaifenesin (Robitussin -) 10 ml PO Q4H PRN PRN Reason: COUGH Sodium Chloride (Normal Saline -) 250 mls @ 3,000 mls/hr IV PRN PRN PRN Reason: Hypotension during Dialysis Stop: 02/08/20 13:44 Insulin Aspart (Novolog Vial Sliding Scale -) 1 vial SQ Q6HPO [facility]; Protocol Metoprolol Tartrate (Lopressor -) 25 mg PO BID [facility] Pantoprazole Sodium (Protonix Packets For Oral Suspension -) 40 mg PO DAILY [facility] - Objective Vital Signs: Vital Signs Temperature 97.7 F 02/09/20 08:00 Pulse Rate 99 H 02/09/20 08:00 Respiratory Rate 20 02/09/20 08:00 Blood Pressure 137/60 02/09/20 08:00 O2 Sat by Pulse Oximetry (%) 100 02/09/20 06:00 Constitutional: Yes: Well Nourished, Other (POORLY RESPONSIVE) Eyes: Yes: WNL HENT: Yes: WNL Neck: Yes: WNL Cardiovascular: Yes: Regular Rate and Rhythm, S1, S2 Respiratory: Yes: Diminished, Rhonchi (FEW RHONCHI) Gastrointestinal: Yes: Normal Bowel Sounds, Soft Extremities: Yes: WNL Edema: No Labs: CBC, BMP 02/09/20 05:25 02/09/20 05:25 INR, PTT INR 1.56 (0.83-1.09) H 02/02/20 20:30 Fibrinogen 448.0 mg/dL (238-498) 02/05/20 06:00 Problem List - Problems (1) Altered mental status Code(s): R41.82 - ALTERED MENTAL STATUS, UNSPECIFIED (2) Pneumonia, aspiration Code(s): J69.0 - PNEUMONITIS DUE TO INHALATION OF FOOD AND VOMIT (3) Stroke Code(s): I63.9 - CEREBRAL INFARCTION, UNSPECIFIED (4) Hypertension Code(s): I10 - ESSENTIAL (PRIMARY) HYPERTENSION (5) ESRD on dialysis Code(s): N18.6 - END STAGE RENAL DISEASE; Z99.2 - DEPENDENCE ON RENAL DIALYSIS Assessment/Plan ASSESSMENT AND PLAN: Acute Hypoxic Respiratory Failure Acute CVA Pneumonia likely Aspiration Acute Blood Loss Anemia ESRD on HD HTN DM Hyperlipidemia h/o CVA - completed antibiotics - monitor urine output, creatinine - O2 to keep SpO2 >90% - HD per renal - aspiration precautions - enteral feeds - DVT prophylaxis DR RAMIREZ
--- NOTE | 2020-02-09 10:51 | PN ---
Progress Note (short form) - Note Progress Note: RENAL pt on telemetry she is poorly responsive currently on hemodialysis Last Vital Signs Temp Pulse Resp BP Pulse Ox 97.7 F 99 H 20 137/60 100 02/09/20 08:00 02/09/20 08:00 02/09/20 08:00 02/09/20 08:00 02/09/20 06:00 lungs clear cvs s1s2 rr +DAVE abd soft ext upper ext edema neuro occasionally opens eyes, otherwise no response Current Medications Generic Name Dose Route Start Last Admin Trade Name Freq PRN Reason Stop Dose Admin Acetaminophen 650 mg 02/09/20 09:27 Tylenol Oral Solution - PO Q6H PRN PAIN LEVEL 4 - 6 Albuterol/Ipratropium 1 amp 02/09/20 12:00 Duoneb - NEB RQID JOSE Amlodipine Besylate 10 mg 02/09/20 10:00 Norvasc - NGT DAILY [facility] Banana Based Medical Food 1 packet 02/08/20 22:00 02/09/20 06:51 Banatrol Plus Powder Packet PO 1 packet TID JOSE Administration Collagenase 1 applic 02/09/20 10:00 Santyl - TP DAILY JOSE Protocol Guaifenesin 10 ml 02/09/20 09:27 Robitussin - PO Q4H PRN COUGH Sodium Chloride 250 mls @ 3,000 mls/hr 02/07/20 13:44 Normal Saline - IV 02/08/20 13:44 PRN PRN Hypotension during Dialysis Insulin Aspart 1 vial 02/09/20 12:00 Novolog Vial Sliding Scale - SQ Q6HPO JOSE Protocol Metoprolol Tartrate 25 mg 02/09/20 10:00 Lopressor - PO BID JOSE Pantoprazole Sodium 40 mg 02/09/20 10:00 Protonix Packets For Oral Suspension - PO DAILY JOSE CBC, BMP 02/09/20 05:25 02/09/20 05:25 IMPRESSION esrd htn s/p cva x 2- hypokalemia covid 19 neg hypernatremia resolved PLAN continue current management no objection with dc to assisted would adjust diet since she is always hypokalemic MV
[2020-02-09] MEDS ORDERED: SODIUM CHLORIDE 250 ML IV PRN (11:11)
[2020-02-09] MEDS ORDERED: EPOETIN ALFA-EPBX 3,000 UNIT/ML VIAL SQ ONE (11:11)
[2020-02-09] MEDS: METOPROLOL TARTRATE 25 MG TABLET (FP) PO SCH ×2 (12:05→22:10)
[2020-02-09] MEDS: amLODIPine BESYLATE 10 MG TABLET (FP) NGT SCH (12:05)
[2020-02-09] MEDS: ACETAMINOPHEN 650 MG/20.3 ML ORAL SOLUTION (CUPS) PO PRN ×2 (12:09→22:09)
--- NOTE | 2020-02-09 12:14 | PN ---
Progress Note, Physician History of Present Illness: pt seen/ examined chart is reviewed poorly responsive All f/u noted having low grade temp- 99.9 today per RN - Current Medication List Current Medications: Active Medications Acetaminophen (Tylenol Oral Solution -) 650 mg PO Q6H PRN PRN Reason: PAIN LEVEL 4 - 6 Last Admin: 02/09/20 12:09 Dose: 650 mg Documented by: Albuterol/Ipratropium (Duoneb -) 1 amp NEB RQID [facility] Last Admin: 02/09/20 11:21 Dose: 1 amp Documented by: Amlodipine Besylate (Norvasc -) 10 mg NGT DAILY [facility] Last Admin: 02/09/20 12:05 Dose: 10 mg Documented by: Banana Based Medical Food (Banatrol Plus Powder Packet) 1 packet PO TID [facility] Last Admin: 02/09/20 06:51 Dose: 1 packet Documented by: Collagenase (Santyl -) 1 applic TP DAILY [facility]; Protocol Epoetin Rupert-epbx (Retacrit) 3,000 unit SQ ONCE ONE Stop: 02/09/20 11:12 Guaifenesin (Robitussin -) 10 ml PO Q4H PRN PRN Reason: COUGH Sodium Chloride (Normal Saline -) 250 mls @ 3,000 mls/hr IV PRN PRN PRN Reason: Hypotension during Dialysis Stop: 02/08/20 13:44 Sodium Chloride (Normal Saline -) 250 mls @ 3,000 mls/hr IV PRN PRN PRN Reason: Hypotension during Dialysis Stop: 02/10/20 11:11 Insulin Aspart (Novolog Vial Sliding Scale -) 1 vial SQ Q6HPO [facility]; Protocol Last Admin: 02/09/20 12:05 Dose: Not Given Documented by: Metoprolol Tartrate (Lopressor -) 25 mg PO BID [facility] Last Admin: 02/09/20 12:05 Dose: 25 mg Documented by: Pantoprazole Sodium (Protonix Packets For Oral Suspension -) 40 mg PO DAILY [facility] - Objective Vital Signs: Vital Signs Temperature 97.7 F 02/09/20 08:00 Pulse Rate 99 H 02/09/20 08:00 Respiratory Rate 20 02/09/20 08:00 Blood Pressure 137/60 02/09/20 08:00 O2 Sat by Pulse Oximetry (%) 100 02/09/20 06:00 Neck: Yes: Supple Cardiovascular: Yes: Regular Rate and Rhythm Respiratory: Yes: Diminished Gastrointestinal: Yes: Soft, Other (PEg) Edema: No Labs: CBC, BMP 02/09/20 05:25 02/09/20 05:25 INR, PTT INR 1.56 (0.83-1.09) H 02/02/20 20:30 Fibrinogen 448.0 mg/dL (238-498) 02/05/20 06:00 Problem List - Problems (1) Stroke Code(s): I63.9 - CEREBRAL INFARCTION, UNSPECIFIED (2) Pneumonia, aspiration Code(s): J69.0 - PNEUMONITIS DUE TO INHALATION OF FOOD AND VOMIT (3) Diabetes Code(s): E11.9 - TYPE 2 DIABETES MELLITUS WITHOUT COMPLICATIONS (4) ESRD on dialysis Code(s): N18.6 - END STAGE RENAL DISEASE; Z99.2 - DEPENDENCE ON RENAL DIALYSIS Assessment/Plan A/P Acute right temporoparietal infarct -- Large MCA aspiration pneumonia ESRD -HD Respiratory failure Anemia s/p PEG Continue present care Overall condition poor Monitor today for fever If stable- d/c in am to group home d/w RN also
--- NOTE | 2020-02-09 13:53 | PN ---
Progress Note (short form) - Note Progress Note: 74 year old female brought patient from [place] for unreponsivness for two days prior to admission. Patient has history of stroke three months ago and has been decline since than. Patient has no seizure, she has high wbc and suspected to have aspiration pneumonia. Patient has large right mca cerebral edema. patient was intubated as family cancelled DNR. Over last few days, she has peg tube placed and extubated. She do not follow command, and able to open eye and winces to pain , no new symptoms NEUROLOGICAL EXAMINATION Patient is comatose, and wince to pain, neck is supple afebrile pupils is small sluggsihly reactive gag and corneal reflex is present bp is maintained ct head showed large right mca cerebral edema with miniml hemorrhagic transformation repeat ct head done on january 28 Assessment/Plan 1. Large right mca acute stroke also old left mca stroke now she has bihemispheric stroke with minimal reponsivness, Plan: prongnosis is poor , continue supportive care Pippa sol so much Norman Plascencia MD
[2020-02-09] MEDS: PANTOPRAZOLE SOD 40 MG SUSPENSION PACKET PO SCH (15:30)
--- NOTE | 2020-02-09 15:39 | PN ---
Progress Note, Physician History of Present Illness: 74 year old female with medical history of ESRD (on HD), hypertension, DMII, GERD, HTN, HL, aphasia and stroke 3 months ago, admitted to ICU fro ED for progressive weakness and reported unresponsiveness. Head CT showed (01/13) right pareital, occipital and temporal lobe suggestive of acute CVA no acute intracranial bleed ; Prolonged ICU course complicated by Acxute worsening of chronic anemia, likely from stomal bleed. Elevated TNIs most likely anemia induced ischemia. - Current Medication List Current Medications: Active Medications Acetaminophen (Tylenol Oral Solution -) 650 mg PO Q6H PRN PRN Reason: PAIN LEVEL 4 - 6 Last Admin: 02/09/20 12:09 Dose: 650 mg Documented by: Albuterol/Ipratropium (Duoneb -) 1 amp NEB RQID [facility] Last Admin: 02/09/20 11:21 Dose: 1 amp Documented by: Amlodipine Besylate (Norvasc -) 10 mg NGT DAILY [facility] Last Admin: 02/09/20 12:05 Dose: 10 mg Documented by: Banana Based Medical Food (Banatrol Plus Powder Packet) 1 packet PO TID [facility] Last Admin: 02/09/20 06:51 Dose: 1 packet Documented by: Collagenase (Santyl -) 1 applic TP DAILY [facility]; Protocol Epoetin Rupert-epbx (Retacrit) 3,000 unit SQ ONCE ONE Stop: 02/09/20 11:12 Guaifenesin (Robitussin -) 10 ml PO Q4H PRN PRN Reason: COUGH Sodium Chloride (Normal Saline -) 250 mls @ 3,000 mls/hr IV PRN PRN PRN Reason: Hypotension during Dialysis Stop: 02/08/20 13:44 Sodium Chloride (Normal Saline -) 250 mls @ 3,000 mls/hr IV PRN PRN PRN Reason: Hypotension during Dialysis Stop: 02/10/20 11:11 Insulin Aspart (Novolog Vial Sliding Scale -) 1 vial SQ Q6HPO [facility]; Protocol Last Admin: 02/09/20 12:05 Dose: Not Given Documented by: Metoprolol Tartrate (Lopressor -) 25 mg PO BID [facility] Last Admin: 02/09/20 12:05 Dose: 25 mg Documented by: Pantoprazole Sodium (Protonix Packets For Oral Suspension -) 40 mg PO DAILY [facility] - Objective Vital Signs: Vital Signs Temperature 99.7 F H 02/09/20 13:41 Pulse Rate 95 H 02/09/20 13:41 Respiratory Rate 02/09/20 13:41 Blood Pressure 153/84 02/09/20 13:41 O2 Sat by Pulse Oximetry (%) 99 02/09/20 13:41 Eyes: Yes: WNL, Conjunctiva Clear, EOM Intact HENT: Yes: WNL, Atraumatic, Normocephalic Neck: Yes: WNL, Supple, Trachea Midline Cardiovascular: Yes: WNL, Regular Rate and Rhythm Respiratory: Yes: WNL, Regular, CTA Bilaterally Gastrointestinal: Yes: WNL, Normal Bowel Sounds Genitourinary: Yes: WNL Musculoskeletal: Yes: WNL Extremities: Yes: WNL Edema: No Integumentary: Yes: WNL Labs: CBC, BMP 02/09/20 05:25 02/09/20 05:25 INR, PTT INR 1.56 (0.83-1.09) H 02/02/20 20:30 Fibrinogen 448.0 mg/dL (238-498) 02/05/20 06:00 Problem List - Problems (1) Altered mental status Code(s): R41.82 - ALTERED MENTAL STATUS, UNSPECIFIED (2) Anemia Code(s): D64.9 - ANEMIA, UNSPECIFIED (3) Lactic acidosis Code(s): E87.2 - ACIDOSIS (4) Pneumonia, aspiration Code(s): J69.0 - PNEUMONITIS DUE TO INHALATION OF FOOD AND VOMIT (5) Stroke Code(s): I63.9 - CEREBRAL INFARCTION, UNSPECIFIED (6) Clotted dialysis access Code(s): T82.49XA - OTH COMPLICATION OF VASCULAR DIALYSIS CATHETER, INIT ENCNTR (7) Diabetes Code(s): E11.9 - TYPE 2 DIABETES MELLITUS WITHOUT COMPLICATIONS (8) ESRD on dialysis Code(s): N18.6 - END STAGE RENAL DISEASE; Z99.2 - DEPENDENCE ON RENAL DIALYSIS (9) Hypertension Code(s): I10 - ESSENTIAL (PRIMARY) HYPERTENSION (10) SOB (shortness of breath) Code(s): R06.02 - SHORTNESS OF BREATH Assessment/Plan Acute right temporoparietal infarct -- Large MCA aspiration pneumonia ESRD -HD Respiratory failure severe Anemia New elevated TNIs - most likely due to demand ischemia due to severe anemia. New LBBB 7-25-20 s/p PEG Nl EF Moderater MR moderate PHT Plan: Replete K+ and PO4+ TNi trending down EKG: NSR; LBBB keep HCT around 30% Continue Metoprolol tartrate 25 BID Start ASA if cleared by Neuro and GI Further cardiac w/u will depend on mental status recovery cc time spent 35 min
[2020-02-09] MEDS: COLLAGENASE CLOSTRIDIUM HIST. 30 GRAMS TUBE TP SCH (15:43)
[2020-02-09] MEDS ORDERED: PT OWN MED DRAWER 7, Y5N ONE (19:07)
[2020-02-09] MEDS ORDERED: CHLORHEXIDINE GLUCONATE 4% CLEANSER FOR DECOLONIZATION TP SCH (22:00)
[2020-02-10] MEDS: INSULIN SLIDING SCALE (NOVOLOG) 1 VIAL SQ SCH ×4 (00:57→17:33)
[2020-02-10] MEDS: ACETAMINOPHEN 650 MG/20.3 ML ORAL SOLUTION (CUPS) PO PRN (05:25)
[2020-02-10] MEDS: BANATROL PLUS POWDER PACKET PO SCH ×3 (06:46→21:49)
[2020-02-10] MEDS: ALBUTEROL SO4 2.5/IPRATROPIUM 0.5 INH SOL 3 ML VIAL.NEB. NEB SCH ×4 (07:50→20:03)
--- NOTE | 2020-02-10 07:58 | PN ---
Progress Note, Physician History of Present Illness: PULMONARY NO CHANGE POORLY RESPONSIVE ON O2 3L NC SAT 99% - Current Medication List Current Medications: Active Medications Acetaminophen (Tylenol Oral Solution -) 650 mg PO Q6H PRN PRN Reason: PAIN LEVEL 4 - 6 Last Admin: 02/10/20 05:25 Dose: 650 mg Documented by: Albuterol/Ipratropium (Duoneb -) 1 amp NEB RQID [facility] Last Admin: 02/09/20 20:07 Dose: 1 amp Documented by: Amlodipine Besylate (Norvasc -) 10 mg NGT DAILY [facility] Last Admin: 02/09/20 12:05 Dose: 10 mg Documented by: Banana Based Medical Food (Banatrol Plus Powder Packet) 1 packet PO TID [facility] Last Admin: 02/10/20 06:46 Dose: 1 packet Documented by: Collagenase (Santyl -) 1 applic TP DAILY [facility]; Protocol Last Admin: 02/09/20 15:43 Dose: 1 applic Documented by: Epoetin Rupert-epbx (Retacrit) 3,000 unit SQ ONCE ONE Stop: 02/09/20 11:12 Guaifenesin (Robitussin -) 10 ml PO Q4H PRN PRN Reason: COUGH Sodium Chloride (Normal Saline -) 250 mls @ 3,000 mls/hr IV PRN PRN PRN Reason: Hypotension during Dialysis Stop: 02/10/20 11:11 Insulin Aspart (Novolog Vial Sliding Scale -) 1 vial SQ Q6HPO [facility]; Protocol Last Admin: 02/10/20 06:47 Dose: Not Given Documented by: Metoprolol Tartrate (Lopressor -) 25 mg PO BID [facility] Last Admin: 02/09/20 22:10 Dose: 25 mg Documented by: Pantoprazole Sodium (Protonix Packets For Oral Suspension -) 40 mg PO DAILY [facility] Last Admin: 02/09/20 15:30 Dose: 40 mg Documented by: - Objective Vital Signs: Vital Signs Temperature 101.0 F H 02/10/20 05:00 Pulse Rate 98 H 02/10/20 05:00 Respiratory Rate 24 H 02/10/20 05:00 Blood Pressure 139/65 02/10/20 05:00 O2 Sat by Pulse Oximetry (%) 99 02/10/20 05:00 Constitutional: Yes: Well Nourished, Other (POORLY RESPONSIVE) Eyes: Yes: WNL HENT: Yes: WNL Neck: Yes: WNL Cardiovascular: Yes: Regular Rate and Rhythm, S1, S2 Respiratory: Yes: Diminished Gastrointestinal: Yes: Normal Bowel Sounds, Soft Extremities: Yes: WNL Edema: No Labs: CBC, BMP 02/09/20 05:25 Problem List - Problems (1) Altered mental status Code(s): R41.82 - ALTERED MENTAL STATUS, UNSPECIFIED (2) Pneumonia, aspiration Code(s): J69.0 - PNEUMONITIS DUE TO INHALATION OF FOOD AND VOMIT (3) Stroke Code(s): I63.9 - CEREBRAL INFARCTION, UNSPECIFIED (4) Hypertension Code(s): I10 - ESSENTIAL (PRIMARY) HYPERTENSION (5) ESRD on dialysis Code(s): N18.6 - END STAGE RENAL DISEASE; Z99.2 - DEPENDENCE ON RENAL DIALYSIS Assessment/Plan ASSESSMENT AND PLAN: Acute Hypoxic Respiratory Failure Acute CVA Pneumonia likely Aspiration Acute Blood Loss Anemia ESRD on HD HTN DM Hyperlipidemia h/o CVA - completed antibiotics - monitor urine output, creatinine - O2 to keep SpO2 >90% - HD per renal - aspiration precautions - enteral feeds - DVT prophylaxis DR RAMIREZ
[2020-02-10] MEDS ORDERED: PT OWN MED DRAWER 7, Y5N ONE ×3 (09:51→21:10)
[2020-02-10] MEDS: PANTOPRAZOLE SOD 40 MG SUSPENSION PACKET PO SCH (09:53)
[2020-02-10] MEDS: COLLAGENASE CLOSTRIDIUM HIST. 30 GRAMS TUBE TP SCH (09:53)
[2020-02-10] MEDS: amLODIPine BESYLATE 10 MG TABLET (FP) NGT SCH (09:53)
[2020-02-10] MEDS: METOPROLOL TARTRATE 25 MG TABLET (FP) PO SCH ×2 (09:53→21:49)
--- NOTE | 2020-02-10 12:33 | PN ---
Progress Note (short form) - Note Progress Note: maintaining on NC not in distress winces when examined open eyes random no bleeding at GT site Vital Signs - 24 hr 02/09/20 02/09/20 02/10/20 21:00 23:00 01:00 Temperature 100.5 F H 100.4 F H Pulse Rate 100 H Respiratory 20 20 Rate Blood Pressure 143/71 O2 Sat by Pulse 100 100 Oximetry (%) 02/10/20 02/10/20 02/10/20 05:00 09:00 12:55 Temperature 101.0 F H 99.7 F H Pulse Rate 98 H 95 H 94 H Respiratory 24 H 20 18 Rate Blood Pressure 139/65 150/63 139/75 O2 Sat by Pulse 99 100 Oximetry (%) 02/10/20 02/10/20 02/10/20 13:05 13:35 14:10 Temperature Pulse Rate 92 H 88 88 Respiratory 20 16 16 Rate Blood Pressure 104/67 135/72 125/69 O2 Sat by Pulse Oximetry (%) 02/10/20 02/10/20 02/10/20 14:40 15:10 15:40 Temperature Pulse Rate 89 93 H 94 H Respiratory 16 14 16 Rate Blood Pressure 130/68 114/66 99/64 O2 Sat by Pulse Oximetry (%) 02/10/20 02/10/20 16:10 16:15 Temperature Pulse Rate 97 H 95 H Respiratory 16 16 Rate Blood Pressure 111/60 125/69 O2 Sat by Pulse Oximetry (%) Current Medications Generic Name Dose Route Start Last Admin Trade Name Freq PRN Reason Stop Dose Admin Acetaminophen 650 mg 02/09/20 09:27 02/10/20 05:25 Tylenol Oral Solution - PO 650 mg Q6H PRN Administration PAIN LEVEL 4 - 6 Albuterol/Ipratropium 1 amp 02/09/20 12:00 02/10/20 15:29 Duoneb - NEB Not Given RQID [facility] Amlodipine Besylate 10 mg 02/09/20 10:00 02/10/20 09:53 Norvasc - NGT 10 mg DAILY [facility] Administration Banana Based Medical Food 1 packet 02/08/20 22:00 02/10/20 14:44 Banatrol Plus Powder Packet PO Not Given TID [facility] Collagenase 1 applic 02/09/20 10:00 02/10/20 09:53 Santyl - TP 1 applic DAILY [facility] Administration Protocol Guaifenesin 10 ml 02/09/20 09:27 Robitussin - PO Q4H PRN COUGH Sodium Chloride 250 mls @ 3,000 mls/hr 02/09/20 11:11 Normal Saline - IV 02/10/20 11:11 PRN PRN Hypotension during Dialysis Insulin Aspart 1 vial 02/09/20 12:00 02/10/20 17:33 Novolog Vial Sliding Scale - SQ Not Given Q6HPO [facility] Protocol Metoprolol Tartrate 25 mg 02/09/20 10:00 02/10/20 09:53 Lopressor - PO 25 mg BID [facility] Administration Laboratory Results - last 24 hr 02/10/20 02/10/20 02/10/20 00:54 06:07 11:17 POC Glucometer 202 157 206 02/10/20 16:07 POC Glucometer 68 S1 S2 RRR left side edematous Lungs decreased Abd- soft, NT, GT+ No edema ct head showed large right mca cerebral edema with minimal hemorrhagic transformation repeat ct head done on january 28 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 ESRD on HD aspiration pneumonia acute respiratory failure -- palliative care on the case --completed iv antibiotics -- pt is FULL CODE -- continue with current care -- poor prognosis --tolerating peg feeds -- change meds over to GT -- she is maintaining airway, not congested -- dc planning to [place] -- monitor for fever, aspiration -- dc protonix -- COVID PCR ordered-- for [place] admission Problem List - Problems (1) Altered mental status Code(s): R41.82 - ALTERED MENTAL STATUS, UNSPECIFIED (2) Lactic acidosis Code(s): E87.2 - ACIDOSIS (3) Pneumonia, aspiration Code(s): J69.0 - PNEUMONITIS DUE TO INHALATION OF FOOD AND VOMIT (4) Stroke Code(s): I63.9 - CEREBRAL INFARCTION, UNSPECIFIED (5) ESRD on dialysis Code(s): N18.6 - END STAGE RENAL DISEASE; Z99.2 - DEPENDENCE ON RENAL DIALYSIS (6) Hypertension Code(s): I10 - ESSENTIAL (PRIMARY) HYPERTENSION
--- NOTE | 2020-02-10 14:13 | PN ---
Progress Note, Physician Chief Complaint: CVA History of Present Illness: Seen and examined at the bedside currently getting dialysis BP stable, catheter working well not responisve to verbal stimuli goal UF is 1.5L - Current Medication List Current Medications: Active Medications Acetaminophen (Tylenol Oral Solution -) 650 mg PO Q6H PRN PRN Reason: PAIN LEVEL 4 - 6 Last Admin: 02/10/20 05:25 Dose: 650 mg Documented by: Albuterol/Ipratropium (Duoneb -) 1 amp NEB RQID [facility] Last Admin: 02/10/20 11:11 Dose: 1 amp Documented by: Amlodipine Besylate (Norvasc -) 10 mg NGT DAILY [facility] Last Admin: 02/10/20 09:53 Dose: 10 mg Documented by: Banana Based Medical Food (Banatrol Plus Powder Packet) 1 packet PO TID [facility] Last Admin: 02/10/20 06:46 Dose: 1 packet Documented by: Collagenase (Santyl -) 1 applic TP DAILY [facility]; Protocol Last Admin: 02/10/20 09:53 Dose: 1 applic Documented by: Guaifenesin (Robitussin -) 10 ml PO Q4H PRN PRN Reason: COUGH Sodium Chloride (Normal Saline -) 250 mls @ 3,000 mls/hr IV PRN PRN PRN Reason: Hypotension during Dialysis Stop: 02/10/20 11:11 Insulin Aspart (Novolog Vial Sliding Scale -) 1 vial SQ Q6HPO [facility]; Protocol Last Admin: 02/10/20 11:20 Dose: 2 units Documented by: Metoprolol Tartrate (Lopressor -) 25 mg PO BID [facility] Last Admin: 02/10/20 09:53 Dose: 25 mg Documented by: - Objective Vital Signs: Vital Signs Temperature 99.7 F H 02/10/20 09:00 Pulse Rate 88 02/10/20 13:35 Respiratory Rate 16 02/10/20 13:35 Blood Pressure 135/72 02/10/20 13:35 O2 Sat by Pulse Oximetry (%) 100 02/10/20 09:00 Constitutional: Yes: No Distress, Calm HENT: Yes: Atraumatic Neck: Yes: Supple Cardiovascular: Yes: Regular Rate and Rhythm Respiratory: Yes: Regular Gastrointestinal: Yes: Soft Extremities: No: Cyanosis Edema: No Neurological: No: Alert Labs: CBC, BMP 02/09/20 05:25 02/09/20 05:25 INR, PTT INR 1.56 (0.83-1.09) H 02/02/20 20:30 Fibrinogen 448.0 mg/dL (238-498) 02/05/20 06:00 Assessment/Plan IMPRESSION esrd htn s/p cva x 2- hypokalemia covid 19 neg hypernatremia resolved PLAN tolerating dialysis well this am UF goal of 1.5L as tolerated continue supportive care Neurology follow up next planned dialysis is Wednesday Raman Chowdhury DO
--- NOTE | 2020-02-10 18:07 | PN ---
Progress Note (short form) - Note Progress Note: 74 year old female brought patient from [place] for unreponsivness for two days prior to admission. Patient has history of stroke three months ago and has been decline since than. Patient has no seizure, she has high wbc and suspected to have aspiration pneumonia. Patient has large right mca cerebral edema. patient was intubated as family cancelled DNR. Over last few days, she has peg tube placed and extubated. She do not follow command, and able to open eye and winces to pain , no new symptoms. Patient is stable NEUROLOGICAL EXAMINATION Patient is comatose, and wince to pain, neck is supple afebrile pupils is small sluggsihly reactive gag and corneal reflex is present bp is maintained ct head showed large right mca cerebral edema with minimal hemorrhagic transformation repeat ct head done on january 28 Assessment/Plan 1. Large right mca acute stroke also old left mca stroke now she has bihemispheric stroke with minimal reponsivness, Plan: continue supportive care Pippa sol so much Norman Plascencia MD
[2020-02-11] MEDS: INSULIN SLIDING SCALE (NOVOLOG) 1 VIAL SQ SCH ×4 (01:29→17:14)
[2020-02-11] MEDS: BANATROL PLUS POWDER PACKET PO SCH (06:40)
--- NOTE | 2020-02-11 07:13 | PN ---
Progress Note, Physician History of Present Illness: PULMONARY NO CHANGE,POORLY RESPONSIVE ,-RESP DISTRESS - Current Medication List Current Medications: Active Medications Acetaminophen (Tylenol Oral Solution -) 650 mg PO Q6H PRN PRN Reason: PAIN LEVEL 4 - 6 Last Admin: 02/10/20 05:25 Dose: 650 mg Documented by: Albuterol/Ipratropium (Duoneb -) 1 amp NEB RQID [facility] Last Admin: 02/10/20 20:03 Dose: 1 amp Documented by: Amlodipine Besylate (Norvasc -) 10 mg NGT DAILY [facility] Last Admin: 02/10/20 09:53 Dose: 10 mg Documented by: Banana Based Medical Food (Banatrol Plus Powder Packet) 1 packet PO TID [facility] Last Admin: 02/11/20 06:40 Dose: 1 packet Documented by: Collagenase (Santyl -) 1 applic TP DAILY [facility]; Protocol Last Admin: 02/10/20 09:53 Dose: 1 applic Documented by: Guaifenesin (Robitussin -) 10 ml PO Q4H PRN PRN Reason: COUGH Sodium Chloride (Normal Saline -) 250 mls @ 3,000 mls/hr IV PRN PRN PRN Reason: Hypotension during Dialysis Stop: 02/10/20 11:11 Insulin Aspart (Novolog Vial Sliding Scale -) 1 vial SQ Q6HPO [facility]; Protocol Last Admin: 02/11/20 06:40 Dose: 2 units Documented by: Metoprolol Tartrate (Lopressor -) 25 mg PO BID [facility] Last Admin: 02/10/20 21:49 Dose: 25 mg Documented by: - Objective Vital Signs: Vital Signs Temperature 99.6 F 02/11/20 05:00 Pulse Rate 102 H 02/11/20 05:00 Respiratory Rate 16 02/10/20 21:00 Blood Pressure 129/53 L 02/11/20 05:00 O2 Sat by Pulse Oximetry (%) 100 02/11/20 05:00 Constitutional: Yes: Thin, Other (POORLY RESPONSIVE) Eyes: Yes: WNL HENT: Yes: WNL Neck: Yes: WNL Cardiovascular: Yes: Regular Rate and Rhythm, S1, S2 Respiratory: Yes: Diminished Gastrointestinal: Yes: Normal Bowel Sounds, Soft Extremities: Yes: WNL Edema: No Labs: CBC, BMP Problem List - Problems (1) Altered mental status Code(s): R41.82 - ALTERED MENTAL STATUS, UNSPECIFIED (2) Pneumonia, aspiration Code(s): J69.0 - PNEUMONITIS DUE TO INHALATION OF FOOD AND VOMIT (3) Stroke Code(s): I63.9 - CEREBRAL INFARCTION, UNSPECIFIED (4) Hypertension Code(s): I10 - ESSENTIAL (PRIMARY) HYPERTENSION (5) ESRD on dialysis Code(s): N18.6 - END STAGE RENAL DISEASE; Z99.2 - DEPENDENCE ON RENAL DIALYSIS Assessment/Plan ASSESSMENT AND PLAN: Acute Hypoxic Respiratory Failure Acute CVA Pneumonia likely Aspiration Acute Blood Loss Anemia ESRD on HD HTN DM Hyperlipidemia h/o CVA - completed antibiotics - monitor urine output, creatinine - O2 to keep SpO2 >90% - HD per renal - aspiration precautions - enteral feeds - DVT prophylaxis DR RAMIREZ
[2020-02-11] MEDS: ALBUTEROL SO4 2.5/IPRATROPIUM 0.5 INH SOL 3 ML VIAL.NEB. NEB SCH ×4 (08:52→20:20)
[2020-02-11] MEDS: ACETAMINOPHEN 650 MG/20.3 ML ORAL SOLUTION (CUPS) PO PRN ×2 (09:33→22:29)
[2020-02-11] MEDS: METOPROLOL TARTRATE 25 MG TABLET (FP) PO SCH ×2 (09:34→22:29)
[2020-02-11] MEDS: COLLAGENASE CLOSTRIDIUM HIST. 30 GRAMS TUBE TP SCH (09:34)
[2020-02-11] MEDS: amLODIPine BESYLATE 10 MG TABLET (FP) NGT SCH (09:34)
--- NOTE | 2020-02-11 13:39 | PN ---
Progress Note (short form) - Note Progress Note: maintaining on NC not in distress winces when examined open eyes random no bleeding at GT site Vital Signs - 24 hr 02/10/20 02/11/20 02/11/20 21:00 01:00 05:00 Temperature 99.4 F 99.7 F H 99.6 F Pulse Rate 104 H 102 H Respiratory 16 Rate Blood Pressure 140/68 129/53 L O2 Sat by Pulse 99 100 Oximetry (%) 02/11/20 09:00 Temperature 98.6 F Pulse Rate 104 H Respiratory 20 Rate Blood Pressure 113/52 L O2 Sat by Pulse 99 Oximetry (%) Current Medications Generic Name Dose Route Start Last Admin Trade Name Freq PRN Reason Stop Dose Admin Acetaminophen 650 mg 02/09/20 09:27 02/11/20 09:33 Tylenol Oral Solution - PO 650 mg Q6H PRN Administration PAIN LEVEL 4 - 6 Albuterol/Ipratropium 1 amp 02/09/20 12:00 02/11/20 16:39 Duoneb - NEB 1 amp RQID [facility] Administration Amlodipine Besylate 10 mg 02/09/20 10:00 02/11/20 09:34 Norvasc - NGT 10 mg DAILY [facility] Administration Collagenase 1 applic 02/09/20 10:00 02/11/20 09:34 Santyl - TP 1 applic DAILY [facility] Administration Protocol Guaifenesin 10 ml 02/09/20 09:27 Robitussin - PO Q4H PRN COUGH Sodium Chloride 250 mls @ 3,000 mls/hr 02/09/20 11:11 Normal Saline - IV 02/10/20 11:11 PRN PRN Hypotension during Dialysis Insulin Aspart 1 vial 02/09/20 12:00 02/11/20 12:04 Novolog Vial Sliding Scale - SQ Not Given Q6HPO [facility] Protocol Metoprolol Tartrate 25 mg 02/09/20 10:00 02/11/20 09:34 Lopressor - PO 25 mg BID [facility] Administration Laboratory Results - last 24 hr 02/11/20 02/11/20 02/11/20 01:27 06:26 11:32 POC Glucometer 143 222 183 02/11/20 16:12 POC Glucometer 242 S1 S2 RRR left side edematous Lungs decreased Abd- soft, NT, GT+ No edema flexiseal ct head showed large right mca cerebral edema with minimal hemorrhagic transformation repeat ct head done on january 28 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 ESRD on HD aspiration pneumonia acute respiratory failure -- palliative care on the case --completed iv antibiotics -- pt is FULL CODE -- continue with current care -- poor prognosis --tolerating peg feeds -- change meds over to GT -- she is maintaining airway, not congested -- dc planning to [place] tomorrow -- monitor for fever, aspiration -- dc protonix -- COVID PCR ordered-- for [facility] admission -- dc flexiseal when discharge to [place] -- cdiff negative, loose bm due to feeds Problem List - Problems (1) Altered mental status Code(s): R41.82 - ALTERED MENTAL STATUS, UNSPECIFIED (2) Lactic acidosis Code(s): E87.2 - ACIDOSIS (3) Pneumonia, aspiration Code(s): J69.0 - PNEUMONITIS DUE TO INHALATION OF FOOD AND VOMIT (4) Stroke Code(s): I63.9 - CEREBRAL INFARCTION, UNSPECIFIED (5) ESRD on dialysis Code(s): N18.6 - END STAGE RENAL DISEASE; Z99.2 - DEPENDENCE ON RENAL DIALYSIS (6) Hypertension Code(s): I10 - ESSENTIAL (PRIMARY) HYPERTENSION
[2020-02-11] MEDS ORDERED: INSULIN (NOVOLOG) ASPART 100 UNITS/ML 10ML VIAL ONE (17:32)
--- NOTE | 2020-02-11 20:03 | PN ---
Progress Note (short form) - Note Progress Note: 74 year old female brought patient [place] for unreponsivness for two days prior to admission. Patient has history of stroke three months ago and has been decline since than. Patient has no seizure, she has high wbc and suspected to have aspiration pneumonia. Patient has large right mca cerebral edema. patient was intubated as family cancelled DNR. Over last few days, she has peg tube placed and extubated. She do not follow command, and able to open eye and winces to pain , no new symptoms. Patient is stable, going back to CT tomorrow. NEUROLOGICAL EXAMINATION Patient is comatose, and wince to pain, neck is supple afebrile pupils is small sluggsihly reactive gag and corneal reflex is present bp is maintained ct head showed large right mca cerebral edema with minimal hemorrhagic transformation repeat ct head done on january 28 Assessment/Plan 1. Large right mca acute stroke also old left mca stroke now she has bihemispheric stroke with minimal reponsivness, stable Plan: continue supportive care Pippa sol so much Norman Plascencia MD
[2020-02-12] MEDS: INSULIN SLIDING SCALE (NOVOLOG) 1 VIAL SQ SCH ×4 (01:00→18:47)
[2020-02-12] MEDS: ALBUTEROL SO4 2.5/IPRATROPIUM 0.5 INH SOL 3 ML VIAL.NEB. NEB SCH ×3 (07:42→20:30)
[2020-02-12 08:55] LABS: CALCIUM 8.7 mg/dL (8.5-10.1); CREATININE 2.8 mg/dL (0.55-1.3)
[2020-02-12] MEDS: ACETAMINOPHEN 650 MG/20.3 ML ORAL SOLUTION (CUPS) PO PRN (09:52)
[2020-02-12] MEDS: METOPROLOL TARTRATE 25 MG TABLET (FP) PO SCH ×2 (09:52→21:35)
[2020-02-12] MEDS: amLODIPine BESYLATE 10 MG TABLET (FP) NGT SCH (09:52)
[2020-02-12] MEDS: COLLAGENASE CLOSTRIDIUM HIST. 30 GRAMS TUBE TP SCH (09:57)
--- NOTE | 2020-02-12 11:17 | PN ---
Progress Note (short form) - Note Progress Note: PULMONARY Remains poorly responsive. Febrile to 101. Vital Signs Period Temp Pulse Resp BP Sys/Ramirez Pulse Ox Last 24 Hr 99.4 F-101 F 100-111 20-20 127-130/58-64 99-99 Gen: poorly responsive Heart: RRR Lung: decreased breath sounds at the bases Abd: soft, nontender Ext: no edema CBC, BMP 02/09/20 05:25 02/12/20 06:55 Active Medications Acetaminophen (Tylenol Oral Solution -) 650 mg PO Q6H PRN PRN Reason: PAIN LEVEL 4 - 6 Last Admin: 02/12/20 09:52 Dose: 650 mg Documented by: Albuterol/Ipratropium (Duoneb -) 1 amp NEB RQID [facility] Last Admin: 02/12/20 07:42 Dose: 1 amp Documented by: Amlodipine Besylate (Norvasc -) 10 mg NGT DAILY [facility] Last Admin: 02/12/20 09:52 Dose: 10 mg Documented by: Collagenase (Santyl -) 1 applic TP DAILY [facility]; Protocol Last Admin: 02/12/20 09:57 Dose: 1 applic Documented by: Guaifenesin (Robitussin -) 10 ml PO Q4H PRN PRN Reason: COUGH Sodium Chloride (Normal Saline -) 250 mls @ 3,000 mls/hr IV PRN PRN PRN Reason: Hypotension during Dialysis Stop: 02/10/20 11:11 Insulin Aspart (Novolog Vial Sliding Scale -) 1 vial SQ Q6HPO [facility]; Protocol Last Admin: 02/12/20 06:56 Dose: 2 units Documented by: Metoprolol Tartrate (Lopressor -) 25 mg PO BID [facility] Last Admin: 02/12/20 09:52 Dose: 25 mg Documented by: A/P Acute Hypoxic Respiratory Failure improving Acute CVA Pneumonia likely Aspiration Acute Blood Loss Anemia ESRD on HD HTN DM Hyperlipidemia h/o CVA - completed antibiotics - monitor urine output, creatinine - O2 to keep SpO2 >90% - HD per renal - aspiration precautions - enteral feeds - DVT prophylaxis
--- NOTE | 2020-02-12 11:45 | PN ---
Progress Note, Physician History of Present Illness: pt seen/ examined chart is reviewed had fever 101 last night Off antibiotics Poorly responsive - Current Medication List Current Medications: Active Medications Acetaminophen (Tylenol Oral Solution -) 650 mg PO Q6H PRN PRN Reason: PAIN LEVEL 4 - 6 Last Admin: 02/12/20 09:52 Dose: 650 mg Documented by: Albuterol/Ipratropium (Duoneb -) 1 amp NEB RQID [facility] Last Admin: 02/12/20 07:42 Dose: 1 amp Documented by: Amlodipine Besylate (Norvasc -) 10 mg NGT DAILY [facility] Last Admin: 02/12/20 09:52 Dose: 10 mg Documented by: Collagenase (Santyl -) 1 applic TP DAILY [facility]; Protocol Last Admin: 02/12/20 09:57 Dose: 1 applic Documented by: Guaifenesin (Robitussin -) 10 ml PO Q4H PRN PRN Reason: COUGH Sodium Chloride (Normal Saline -) 250 mls @ 3,000 mls/hr IV PRN PRN PRN Reason: Hypotension during Dialysis Stop: 02/10/20 11:11 Insulin Aspart (Novolog Vial Sliding Scale -) 1 vial SQ Q6HPO [facility]; Protocol Last Admin: 02/12/20 11:29 Dose: Not Given Documented by: Metoprolol Tartrate (Lopressor -) 25 mg PO BID [facility] Last Admin: 02/12/20 09:52 Dose: 25 mg Documented by: - Objective Vital Signs: Vital Signs Temperature 99.4 F 02/12/20 05:00 Pulse Rate 111 H 02/12/20 05:00 Respiratory Rate 20 02/12/20 05:00 Blood Pressure 128/64 02/12/20 05:00 O2 Sat by Pulse Oximetry (%) 99 02/12/20 05:00 Constitutional: No: No Distress Neck: Yes: Supple Cardiovascular: Yes: Regular Rate and Rhythm Respiratory: Yes: Diminished Gastrointestinal: Yes: Soft Edema: LLE: Trace, RLE: Trace Labs: CBC, BMP 02/09/20 05:25 02/12/20 06:55 INR, PTT INR 1.56 (0.83-1.09) H 02/02/20 20:30 Fibrinogen 448.0 mg/dL (238-498) 02/05/20 06:00 Problem List - Problems (1) Stroke Code(s): I63.9 - CEREBRAL INFARCTION, UNSPECIFIED (2) Pneumonia, aspiration Code(s): J69.0 - PNEUMONITIS DUE TO INHALATION OF FOOD AND VOMIT (3) Diabetes Code(s): E11.9 - TYPE 2 DIABETES MELLITUS WITHOUT COMPLICATIONS (4) ESRD on dialysis Code(s): N18.6 - END STAGE RENAL DISEASE; Z99.2 - DEPENDENCE ON RENAL DIALYSIS Assessment/Plan A/P fever Acute right temporoparietal infarct -- Large MCA aspiration pneumonia ESRD -HD Respiratory failure Anemia s/p PEG Continue present care Overall condition poor ID--- will request to follow Line sepsis? d/w RN also
--- NOTE | 2020-02-12 13:16 | PN ---
Progress Note, Physician Chief Complaint: TEMPS NOTED NOT VERBALLY RESPONSIVE BREATHING NON-LABORED WBC WNL - Current Medication List Current Medications: Active Medications Acetaminophen (Tylenol Oral Solution -) 650 mg PO Q6H PRN PRN Reason: PAIN LEVEL 4 - 6 Last Admin: 02/12/20 09:52 Dose: 650 mg Documented by: Albuterol/Ipratropium (Duoneb -) 1 amp NEB RQID [facility] Last Admin: 02/12/20 11:58 Dose: 1 amp Documented by: Amlodipine Besylate (Norvasc -) 10 mg NGT DAILY [facility] Last Admin: 02/12/20 09:52 Dose: 10 mg Documented by: Collagenase (Santyl -) 1 applic TP DAILY [facility]; Protocol Last Admin: 02/12/20 09:57 Dose: 1 applic Documented by: Guaifenesin (Robitussin -) 10 ml PO Q4H PRN PRN Reason: COUGH Sodium Chloride (Normal Saline -) 250 mls @ 3,000 mls/hr IV PRN PRN PRN Reason: Hypotension during Dialysis Stop: 02/10/20 11:11 Insulin Aspart (Novolog Vial Sliding Scale -) 1 vial SQ Q6HPO [facility]; Protocol Last Admin: 02/12/20 11:29 Dose: Not Given Documented by: Metoprolol Tartrate (Lopressor -) 25 mg PO BID [facility] Last Admin: 02/12/20 09:52 Dose: 25 mg Documented by: - Objective Vital Signs: Vital Signs Temperature 99.4 F 02/12/20 05:00 Pulse Rate 111 H 02/12/20 05:00 Respiratory Rate 20 02/12/20 05:00 Blood Pressure 128/64 02/12/20 05:00 O2 Sat by Pulse Oximetry (%) 99 02/12/20 05:00 Constitutional: Yes: No Distress Cardiovascular: Yes: Regular Rate and Rhythm, S1, S2 Respiratory: Yes: Diminished Gastrointestinal: Yes: Normal Bowel Sounds, Soft. No: Tenderness Edema: Yes Edema: LUE: 1+, RUE: 1+, LLE: 1+, RLE: 1+ Integumentary: Yes: Other (+ DIALYSIS CATHETER, CVP, UNSTAGEABLE SACRAL DECUBITUS) Labs: CBC, BMP 02/09/20 05:25 02/12/20 06:55 INR, PTT INR 1.56 (0.83-1.09) H 02/02/20 20:30 Fibrinogen 448.0 mg/dL (238-498) 02/05/20 06:00 Assessment/Plan FEVER S/P ACUTE CVA S/P RESP FAILURE/ EXTUBATION S/P RLL PNEUMONIA ESRD LEUKOCYTOSIS RESOLVED OBS WILL RECULTURE ? D/C CVP
[2020-02-12] MEDS ORDERED: SODIUM CHLORIDE 250 ML IV PRN (14:06)
--- NOTE | 2020-02-12 14:06 | PN ---
Progress Note, Physician History of Present Illness: Pt seen and examined at bedside. She is lethargic. - Current Medication List Current Medications: Active Medications Acetaminophen (Tylenol Oral Solution -) 650 mg PO Q6H PRN PRN Reason: PAIN LEVEL 4 - 6 Last Admin: 02/12/20 09:52 Dose: 650 mg Documented by: Albuterol/Ipratropium (Duoneb -) 1 amp NEB RQID [facility] Last Admin: 02/12/20 11:58 Dose: 1 amp Documented by: Amlodipine Besylate (Norvasc -) 10 mg NGT DAILY [facility] Last Admin: 02/12/20 09:52 Dose: 10 mg Documented by: Collagenase (Santyl -) 1 applic TP DAILY [facility]; Protocol Last Admin: 02/12/20 09:57 Dose: 1 applic Documented by: Guaifenesin (Robitussin -) 10 ml PO Q4H PRN PRN Reason: COUGH Sodium Chloride (Normal Saline -) 250 mls @ 3,000 mls/hr IV PRN PRN PRN Reason: Hypotension during Dialysis Stop: 02/10/20 11:11 Insulin Aspart (Novolog Vial Sliding Scale -) 1 vial SQ Q6HPO [facility]; Protocol Last Admin: 02/12/20 11:29 Dose: Not Given Documented by: Metoprolol Tartrate (Lopressor -) 25 mg PO BID [facility] Last Admin: 02/12/20 09:52 Dose: 25 mg Documented by: - Objective Vital Signs: Vital Signs Temperature 99.4 F 02/12/20 05:00 Pulse Rate 111 H 02/12/20 05:00 Respiratory Rate 20 02/12/20 05:00 Blood Pressure 128/64 02/12/20 05:00 O2 Sat by Pulse Oximetry (%) 99 02/12/20 05:00 Constitutional: Yes: Calm Eyes: Yes: Conjunctiva Clear HENT: Yes: Atraumatic Neck: Yes: Supple Cardiovascular: Yes: S1, S2 Respiratory: Yes: CTA Bilaterally Gastrointestinal: Yes: Soft Genitourinary: Yes: Incontinence Musculoskeletal: Yes: Muscle Weakness Neurological: Yes: Lethargy Labs: CBC, BMP 02/09/20 05:25 02/12/20 06:55 INR, PTT INR 1.56 (0.83-1.09) H 02/02/20 20:30 Fibrinogen 448.0 mg/dL (238-498) 02/05/20 06:00 Problem List - Problems (1) ESRD on dialysis Code(s): N18.6 - END STAGE RENAL DISEASE; Z99.2 - DEPENDENCE ON RENAL DIALYSIS Assessment/Plan Current Medications Generic Name Dose Route Start Last Admin Trade Name Freq PRN Reason Stop Dose Admin Acetaminophen 650 mg 02/09/20 09:27 02/12/20 09:52 Tylenol Oral Solution - PO 650 mg Q6H PRN Administration PAIN LEVEL 4 - 6 Albuterol/Ipratropium 1 amp 02/09/20 12:00 02/12/20 11:58 Duoneb - NEB 1 amp RQID [facility] Administration Amlodipine Besylate 10 mg 02/09/20 10:00 02/12/20 09:52 Norvasc - NGT 10 mg DAILY [facility] Administration Collagenase 1 applic 02/09/20 10:00 02/12/20 09:57 Santyl - TP 1 applic DAILY [facility] Administration Protocol Guaifenesin 10 ml 02/09/20 09:27 Robitussin - PO Q4H PRN COUGH Sodium Chloride 250 mls @ 3,000 mls/hr 02/09/20 11:11 Normal Saline - IV 02/10/20 11:11 PRN PRN Hypotension during Dialysis Insulin Aspart 1 vial 02/09/20 12:00 02/12/20 11:29 Novolog Vial Sliding Scale - SQ Not Given Q6HPO [facility] Protocol Metoprolol Tartrate 25 mg 02/09/20 10:00 02/12/20 09:52 Lopressor - PO 25 mg BID [facility] Administration Impression 1. esrd 2. Acute right temporoparietal infarct 3. previous CVA 4. aspiration pneumonia 5. htn 6. hld 7. acute resp failure Plan - HD tomorrow - cont current care - bp stable - cont tube feeds
--- NOTE | 2020-02-12 18:20 | PN ---
Progress Note, Physician History of Present Illness: 74 year old female with medical history of ESRD (on HD), hypertension, DMII, GERD, HTN, HL, aphasia and stroke 3 months ago, admitted to ICU fro ED for progressive weakness and reported unresponsiveness. Head CT showed (01/13) right pareital, occipital and temporal lobe suggestive of acute CVA no acute intracranial bleed ; Prolonged ICU course complicated by Acxute worsening of chronic anemia, likely from stomal bleed. Elevated TNIs most likely anemia induced ischemia. - Current Medication List Current Medications: Active Medications Acetaminophen (Tylenol Oral Solution -) 650 mg PO Q6H PRN PRN Reason: PAIN LEVEL 4 - 6 Last Admin: 02/12/20 09:52 Dose: 650 mg Documented by: Albuterol/Ipratropium (Duoneb -) 1 amp NEB RQID [facility] Last Admin: 02/12/20 11:58 Dose: 1 amp Documented by: Amlodipine Besylate (Norvasc -) 10 mg NGT DAILY [facility] Last Admin: 02/12/20 09:52 Dose: 10 mg Documented by: Collagenase (Santyl -) 1 applic TP DAILY [facility]; Protocol Last Admin: 02/12/20 09:57 Dose: 1 applic Documented by: Guaifenesin (Robitussin -) 10 ml PO Q4H PRN PRN Reason: COUGH Sodium Chloride (Normal Saline -) 250 mls @ 3,000 mls/hr IV PRN PRN PRN Reason: Hypotension during Dialysis Stop: 02/13/20 14:06 Insulin Aspart (Novolog Vial Sliding Scale -) 1 vial SQ Q6HPO [facility]; Protocol Last Admin: 02/12/20 11:29 Dose: Not Given Documented by: Metoprolol Tartrate (Lopressor -) 25 mg PO BID [facility] Last Admin: 02/12/20 09:52 Dose: 25 mg Documented by: - Objective Vital Signs: Vital Signs Temperature 99.4 F 02/12/20 14:42 Pulse Rate 104 H 02/12/20 14:42 Respiratory Rate 16 02/12/20 14:42 Blood Pressure 125/63 02/12/20 14:42 O2 Sat by Pulse Oximetry (%) 95 02/12/20 14:42 Eyes: Yes: WNL, Conjunctiva Clear, EOM Intact HENT: Yes: WNL, Atraumatic, Normocephalic Neck: Yes: WNL, Supple, Trachea Midline Cardiovascular: Yes: WNL, Regular Rate and Rhythm Respiratory: Yes: WNL, Regular, CTA Bilaterally Gastrointestinal: Yes: WNL, Normal Bowel Sounds Genitourinary: Yes: WNL Musculoskeletal: Yes: WNL Extremities: Yes: WNL Edema: No Integumentary: Yes: WNL Labs: CBC, BMP 02/09/20 05:25 02/12/20 06:55 INR, PTT INR 1.56 (0.83-1.09) H 02/02/20 20:30 Fibrinogen 448.0 mg/dL (238-498) 02/05/20 06:00 Problem List - Problems (1) Altered mental status Code(s): R41.82 - ALTERED MENTAL STATUS, UNSPECIFIED (2) Anemia Code(s): D64.9 - ANEMIA, UNSPECIFIED (3) Lactic acidosis Code(s): E87.2 - ACIDOSIS (4) Pneumonia, aspiration Code(s): J69.0 - PNEUMONITIS DUE TO INHALATION OF FOOD AND VOMIT (5) Stroke Code(s): I63.9 - CEREBRAL INFARCTION, UNSPECIFIED (6) Clotted dialysis access Code(s): T82.49XA - OTH COMPLICATION OF VASCULAR DIALYSIS CATHETER, INIT ENCNTR (7) Diabetes Code(s): E11.9 - TYPE 2 DIABETES MELLITUS WITHOUT COMPLICATIONS (8) ESRD on dialysis Code(s): N18.6 - END STAGE RENAL DISEASE; Z99.2 - DEPENDENCE ON RENAL DIALYSIS (9) Hypertension Code(s): I10 - ESSENTIAL (PRIMARY) HYPERTENSION (10) SOB (shortness of breath) Code(s): R06.02 - SHORTNESS OF BREATH Assessment/Plan Acute right temporoparietal infarct -- Large MCA aspiration pneumonia ESRD -HD Respiratory failure severe Anemia New elevated TNIs - most likely due to demand ischemia due to severe anemia. New LBBB 7-25-20 s/p PEG Nl EF Moderater MR moderate PHT Plan: Replete K+ and PO4+ TNi trending down EKG: NSR; LBBB keep HCT around 30% Continue Metoprolol tartrate 25 BID Start ASA if cleared by Neuro and GI Further cardiac w/u will depend on mental status recovery
--- NOTE | 2020-02-12 18:29 | PN ---
Progress Note (short form) - Note Progress Note: 74 year old female brought patient from [place] for unreponsivness for two days prior to admission. Patient has history of stroke three months ago and has been decline since than. Patient has no seizure, she has high wbc and suspected to have aspiration pneumonia. Patient has large right mca cerebral edema. patient was intubated as family cancelled DNR. Over last few days, she has peg tube placed and extubated. She do not follow command, and able to open eye and winces to pain , no new symptoms. Patient is stable, going back to [place] tomorrow. no new complain NEUROLOGICAL EXAMINATION Patient is comatose, and wince to pain, neck is supple afebrile pupils is small sluggsihly reactive gag and corneal reflex is present bp is maintained ct head showed large right mca cerebral edema with minimal hemorrhagic transformation repeat ct head done on january 28 Assessment/Plan 1. Large right mca acute stroke also old left mca stroke now she has bihemispheric stroke with minimal reponsivness, stable Plan: continue supportive care and being discharge to intermediate. Pippa sol so much Norman Plascencia MD
[2020-02-12] MEDS ORDERED: INSULIN (NOVOLOG) ASPART 100 UNITS/ML 10ML VIAL ONE (21:24)
[2020-02-13] MEDS: INSULIN SLIDING SCALE (NOVOLOG) 1 VIAL SQ SCH ×4 (00:24→18:00)
[2020-02-13] MEDS: ACETAMINOPHEN 650 MG/20.3 ML ORAL SOLUTION (CUPS) PO PRN (06:42)
[2020-02-13 08:44] LABS: BASO % 0.3 % (0-2.0); EOS % 0.6 % (0-4.5); HEMATOCRIT 24.9 % (32.4-45.2); HEMOGLOBIN 7.8 GM/dL (10.7-15.3); LYMPH % 3.6 % (8-40); MCH 29.5 pg (25.7-33.7); MCHC 31.4 g/dl (32.0-36.0); MEAN CELL VOLUME 94.1 fl (80-96); MONO % 5.2 % (3.8-10.2); NEUT % 90.3 % (42.8-82.8); PLATELET COUNT 464 K/MM3 (134-434); RBC 2.65 M/mm3 (3.60-5.2); RDW 17.5 % (11.6-15.6); WHITE BLOOD COUNT 29.2 K/mm3 (4.0-10.0)
[2020-02-13] MEDS: ALBUTEROL SO4 2.5/IPRATROPIUM 0.5 INH SOL 3 ML VIAL.NEB. NEB SCH ×4 (08:46→20:00)
[2020-02-13 09:18] LABS: ALBUMIN 1.1 g/dl (3.4-5.0); BILIRUBIN,TOTAL 0.8 mg/dL (0.2-1); BLOOD UREA NITROGEN 66.2 mg/dL (7-18); CALCIUM 9.2 mg/dL (8.5-10.1); CREATININE 3.5 mg/dL (0.55-1.3); POTASSIUM 4.1 mmol/L (3.5-5.1); TOT PROT 5.4 g/dl (6.4-8.2)
[2020-02-13 10:50] LABS: ANISOCYTOSIS 1+; MACROCYTOSIS 1+; PLATELET ESTIMATE NORMAL
--- NOTE | 2020-02-13 11:57 | PN ---
Progress Note (short form) - Note Progress Note: PULMONARY Remains poorly responsive. Currently on HD. Low grade fevers. Vital Signs Period Temp Pulse Resp BP Sys/Ramirez Pulse Ox Last 24 Hr 98.9 F-100.6 F 60-109 16-20 97-133/53-66 95-100 Gen: poorly responsive Heart: RRR Lung: decreased breath sounds at the bases Abd: soft, nontender Ext: no edema CBC, BMP 02/13/20 07:15 02/13/20 07:15 Active Medications Acetaminophen (Tylenol Oral Solution -) 650 mg PO Q6H PRN PRN Reason: PAIN LEVEL 4 - 6 Last Admin: 02/13/20 06:42 Dose: 650 mg Documented by: Albuterol/Ipratropium (Duoneb -) 1 amp NEB RQID [facility] Last Admin: 02/13/20 08:46 Dose: 1 amp Documented by: Amlodipine Besylate (Norvasc -) 10 mg NGT DAILY [facility] Last Admin: 02/12/20 09:52 Dose: 10 mg Documented by: Collagenase (Santyl -) 1 applic TP DAILY [facility]; Protocol Last Admin: 02/12/20 09:57 Dose: 1 applic Documented by: Guaifenesin (Robitussin -) 10 ml PO Q4H PRN PRN Reason: COUGH Sodium Chloride (Normal Saline -) 250 mls @ 3,000 mls/hr IV PRN PRN PRN Reason: Hypotension during Dialysis Stop: 02/13/20 14:06 Insulin Aspart (Novolog Vial Sliding Scale -) 1 vial SQ Q6HPO [facility]; Protocol Last Admin: 02/13/20 06:03 Dose: 2 units Documented by: Metoprolol Tartrate (Lopressor -) 25 mg PO BID [facility] Last Admin: 02/12/20 21:35 Dose: 25 mg Documented by: A/P Acute Hypoxic Respiratory Failure improving Acute CVA Pneumonia likely Aspiration Acute Blood Loss Anemia ESRD on HD HTN DM Hyperlipidemia h/o CVA - d/c central line - completed antibiotics - monitor urine output, creatinine - O2 to keep SpO2 >90% - HD per renal - aspiration precautions - enteral feeds - DVT prophylaxis
[2020-02-13] MEDS ORDERED: CEFEPIME 0.5 GM in DEXTROSE 5%-WATER - 100 ML IVPB ONE (12:00)
--- NOTE | 2020-02-13 12:45 | PN ---
Progress Note (short form) - Note Progress Note: maintaining on NC low grade temps winces when examined open eyes random high WBC watery stools Vital Signs - 24 hr 02/12/20 02/12/20 02/12/20 19:45 21:00 23:00 Temperature 100.4 F H 99.2 F Pulse Rate 102 H 103 H Respiratory 19 18 20 Rate Blood Pressure 129/66 128/62 O2 Sat by Pulse 96 95 96 Oximetry (%) 02/13/20 02/13/20 02/13/20 01:40 05:00 09:00 Temperature 98.9 F 100.6 F H 100.2 F H Pulse Rate 108 H 109 H 104 H Respiratory 20 20 20 Rate Blood Pressure 111/66 133/66 119/59 L O2 Sat by Pulse 96 97 100 Oximetry (%) 02/13/20 02/13/20 02/13/20 10:00 10:10 10:40 Temperature 99 F Pulse Rate 90 102 H 60 Respiratory 18 18 16 Rate Blood Pressure 112/65 109/55 L 97/53 L O2 Sat by Pulse 100 Oximetry (%) 02/13/20 02/13/20 02/13/20 11:10 11:40 12:10 Temperature Pulse Rate 98 H 90 94 H Respiratory 16 16 18 Rate Blood Pressure 119/59 L 112/54 L 104/60 O2 Sat by Pulse Oximetry (%) 02/13/20 02/13/20 02/13/20 12:40 13:09 13:38 Temperature Pulse Rate 98 H 92 H 90 Respiratory 18 18 18 Rate Blood Pressure 109/56 L 113/80 112/62 O2 Sat by Pulse Oximetry (%) 02/13/20 02/13/20 13:40 14:37 Temperature 97.7 F Pulse Rate 94 H 100 H Respiratory 18 18 Rate Blood Pressure 112/68 122/82 O2 Sat by Pulse Oximetry (%) Current Medications Generic Name Dose Route Start Last Admin Trade Name Freq PRN Reason Stop Dose Admin Acetaminophen 650 mg 02/09/20 09:27 02/13/20 06:42 Tylenol Oral Solution - PO 650 mg Q6H PRN Administration PAIN LEVEL 4 - 6 Albuterol/Ipratropium 1 amp 02/09/20 12:00 02/13/20 12:48 Duoneb - NEB Not Given RQID [facility] Amlodipine Besylate 10 mg 02/09/20 10:00 02/13/20 14:02 Norvasc - NGT 10 mg DAILY [facility] Administration Collagenase 1 applic 02/09/20 10:00 02/13/20 14:03 Santyl - TP 1 applic DAILY [facility] Administration Protocol Guaifenesin 10 ml 02/09/20 09:27 Robitussin - PO Q4H PRN COUGH Sodium Chloride 250 mls @ 3,000 mls/hr 02/12/20 14:06 Normal Saline - IV 02/13/20 14:06 PRN PRN Hypotension during Dialysis Vancomycin HCl 1,000 mg in 250 mls @ 166.667 mls/hr 02/13/20 16:00 Vancomycin (Pre-Docked) IVPB 02/13/20 17:29 ONCE ONE Protocol Cefepime HCl 1 gm/ Dextrose 100 mls @ 200 mls/hr 02/13/20 15:22 IVPB 02/13/20 15:51 ONCE ONE Protocol Insulin Aspart 1 vial 02/09/20 12:00 02/13/20 14:04 Novolog Vial Sliding Scale - SQ Not Given Q6HPO [facility] Protocol Metoprolol Tartrate 25 mg 02/09/20 10:00 02/13/20 14:02 Lopressor - PO 25 mg BID [facility] Administration Laboratory Results - last 24 hr 02/12/20 02/13/20 02/13/20 18:43 00:23 05:49 WBC RBC Hgb Hct MCV MCH MCHC RDW Plt Count MPV Absolute Neuts (auto) Neutrophils % Neutrophils % (Manual) Band Neutrophils % Lymphocytes % Lymphocytes % (Manual) Monocytes % Monocytes % (Manual) Eosinophils % Eosinophils % (Manual) Basophils % Basophils % (Manual) Myelocytes % (Man) Promyelocytes % (Man) Blast Cells % (Manual) Nucleated RBC % Metamyelocytes Hypochromia Platelet Estimate Platelet Comment Polychromasia Poikilocytosis Anisocytosis Microcytosis Macrocytosis Sodium Potassium Chloride Carbon Dioxide Anion Gap BUN Creatinine Est GFR (CKD-EPI)AfAm Est GFR (CKD-EPI)NonAf POC Glucometer 210 259 215 Random Glucose Calcium Total Bilirubin AST ALT Alkaline Phosphatase Total Protein Albumin 02/13/20 02/13/20 07:15 07:15 WBC 29.2 H RBC 2.65 L Hgb 7.8 L Hct 24.9 L MCV 94.1 MCH 29.5 MCHC 31.4 L RDW 17.5 H Plt Count 464 H D MPV 10.0 Absolute Neuts (auto) 26.3 H Neutrophils % 90.3 H Neutrophils % (Manual) 81.6 Band Neutrophils % 6.8 Lymphocytes % 3.6 L D Lymphocytes % (Manual) 1.9 L D Monocytes % 5.2 Monocytes % (Manual) 8 D Eosinophils % 0.6 Eosinophils % (Manual) 1.9 D Basophils % 0.3 Basophils % (Manual) 0.0 Myelocytes % (Man) 0 Promyelocytes % (Man) 0 Blast Cells % (Manual) 0 Nucleated RBC % 1 H Metamyelocytes 0 D Hypochromia 0 Platelet Estimate Normal Platelet Comment Present Polychromasia 0 Poikilocytosis 0 Anisocytosis 1+ Microcytosis 1+ Macrocytosis 1+ Sodium 140 Potassium 4.1 Chloride 100 Carbon Dioxide 24 Anion Gap 16 BUN 66.2 H Creatinine 3.5 H Est GFR (CKD-EPI)AfAm 13.94 Est GFR (CKD-EPI)NonAf 12.02 POC Glucometer Random Glucose 213 H Calcium 9.2 Total Bilirubin 0.8 AST 19 ALT 10 L Alkaline Phosphatase 298 H Total Protein 5.4 L Albumin 1.1 L S1 S2 RRR left side edematous Lungs decreased Abd- soft, NT, GT+ No edema flexiseal ct head showed large right mca cerebral edema with minimal hemorrhagic transformation repeat ct head done on january 28 A/P fever 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 ESRD on HD aspiration pneumonia acute respiratory failure -- palliative care on the case --restarted iv antibiotics -- pt is FULL CODE -- continue with current care -- poor prognosis blood cultures repeated check cdiff Problem List - Problems (1) Altered mental status Code(s): R41.82 - ALTERED MENTAL STATUS, UNSPECIFIED (2) Lactic acidosis Code(s): E87.2 - ACIDOSIS (3) Pneumonia, aspiration Code(s): J69.0 - PNEUMONITIS DUE TO INHALATION OF FOOD AND VOMIT (4) Stroke Code(s): I63.9 - CEREBRAL INFARCTION, UNSPECIFIED (5) ESRD on dialysis Code(s): N18.6 - END STAGE RENAL DISEASE; Z99.2 - DEPENDENCE ON RENAL DIALYSIS (6) Hypertension Code(s): I10 - ESSENTIAL (PRIMARY) HYPERTENSION
[2020-02-13] MEDS: METOPROLOL TARTRATE 25 MG TABLET (FP) PO SCH ×2 (14:02→21:27)
[2020-02-13] MEDS: amLODIPine BESYLATE 10 MG TABLET (FP) NGT SCH (14:02)
[2020-02-13] MEDS: COLLAGENASE CLOSTRIDIUM HIST. 30 GRAMS TUBE TP SCH (14:03)
--- NOTE | 2020-02-13 15:00 | PN ---
Progress Note, Physician History of Present Illness: Pt seen and examined at bedside. She is tolerating HD. - Current Medication List Current Medications: Active Medications Acetaminophen (Tylenol Oral Solution -) 650 mg PO Q6H PRN PRN Reason: PAIN LEVEL 4 - 6 Last Admin: 02/13/20 06:42 Dose: 650 mg Documented by: Albuterol/Ipratropium (Duoneb -) 1 amp NEB RQID [facility] Last Admin: 02/13/20 12:48 Dose: Not Given Documented by: Amlodipine Besylate (Norvasc -) 10 mg NGT DAILY [facility] Last Admin: 02/13/20 14:02 Dose: 10 mg Documented by: Collagenase (Santyl -) 1 applic TP DAILY [facility]; Protocol Last Admin: 02/13/20 14:03 Dose: 1 applic Documented by: Guaifenesin (Robitussin -) 10 ml PO Q4H PRN PRN Reason: COUGH Sodium Chloride (Normal Saline -) 250 mls @ 3,000 mls/hr IV PRN PRN PRN Reason: Hypotension during Dialysis Stop: 02/13/20 14:06 Insulin Aspart (Novolog Vial Sliding Scale -) 1 vial SQ Q6HPO [facility]; Protocol Last Admin: 02/13/20 14:04 Dose: Not Given Documented by: Metoprolol Tartrate (Lopressor -) 25 mg PO BID [facility] Last Admin: 02/13/20 14:02 Dose: 25 mg Documented by: - Objective Vital Signs: Vital Signs Temperature 97.7 F 02/13/20 14:37 Pulse Rate 100 H 02/13/20 14:37 Respiratory Rate 18 02/13/20 14:37 Blood Pressure 122/82 02/13/20 14:37 O2 Sat by Pulse Oximetry (%) 100 02/13/20 10:00 Constitutional: Yes: Calm Eyes: Yes: Conjunctiva Clear HENT: Yes: Atraumatic Neck: Yes: Supple Cardiovascular: Yes: S1, S2 Respiratory: Yes: CTA Bilaterally Gastrointestinal: Yes: Soft Genitourinary: Yes: Incontinence Musculoskeletal: Yes: Muscle Weakness Edema: LUE: Trace, RUE: Trace Neurological: Yes: Lethargy Labs: CBC, BMP 02/13/20 07:15 02/13/20 07:15 INR, PTT INR 1.56 (0.83-1.09) H 02/02/20 20:30 Fibrinogen 448.0 mg/dL (238-498) 02/05/20 06:00 Problem List - Problems (1) ESRD on dialysis Code(s): N18.6 - END STAGE RENAL DISEASE; Z99.2 - DEPENDENCE ON RENAL DIALYSIS Assessment/Plan Current Medications Generic Name Dose Route Start Last Admin Trade Name Freq PRN Reason Stop Dose Admin Acetaminophen 650 mg 02/09/20 09:27 02/13/20 06:42 Tylenol Oral Solution - PO 650 mg Q6H PRN Administration PAIN LEVEL 4 - 6 Albuterol/Ipratropium 1 amp 02/09/20 12:00 02/13/20 12:48 Duoneb - NEB Not Given RQID [facility] Amlodipine Besylate 10 mg 02/09/20 10:00 02/13/20 14:02 Norvasc - NGT 10 mg DAILY [facility] Administration Collagenase 1 applic 02/09/20 10:00 02/13/20 14:03 Santyl - TP 1 applic DAILY [facility] Administration Protocol Guaifenesin 10 ml 02/09/20 09:27 Robitussin - PO Q4H PRN COUGH Sodium Chloride 250 mls @ 3,000 mls/hr 02/12/20 14:06 Normal Saline - IV 02/13/20 14:06 PRN PRN Hypotension during Dialysis Insulin Aspart 1 vial 02/09/20 12:00 02/13/20 14:04 Novolog Vial Sliding Scale - SQ Not Given Q6HPO [facility] Protocol Metoprolol Tartrate 25 mg 02/09/20 10:00 02/13/20 14:02 Lopressor - PO 25 mg BID [facility] Administration Impression 1. esrd 2. Acute right temporoparietal infarct 3. previous CVA 4. aspiration pneumonia 5. htn 6. hld 7. acute resp failure Plan - HD today - cont fees - monitor hg - bp is stable, cont bp meds - pt tolerated HD, cont as scheduled
[2020-02-13] MEDS ORDERED: CEFEPIME 1 GM in DEXTROSE 5%-WATER 100 ML IVPB ONE (15:22)
--- NOTE | 2020-02-13 15:22 | PN ---
Progress Note, Physician Chief Complaint: LOW GRADE TEMPS WBC MARKEDLY ELEVATED NOT VERBALLY RESPONSIVE BREATHING NON-LABORED CULTURES PENDING CXR NO CHANGE - Current Medication List Current Medications: Active Medications Acetaminophen (Tylenol Oral Solution -) 650 mg PO Q6H PRN PRN Reason: PAIN LEVEL 4 - 6 Last Admin: 02/13/20 06:42 Dose: 650 mg Documented by: Albuterol/Ipratropium (Duoneb -) 1 amp NEB RQID [facility] Last Admin: 02/13/20 12:48 Dose: Not Given Documented by: Amlodipine Besylate (Norvasc -) 10 mg NGT DAILY [facility] Last Admin: 02/13/20 14:02 Dose: 10 mg Documented by: Collagenase (Santyl -) 1 applic TP DAILY [facility]; Protocol Last Admin: 02/13/20 14:03 Dose: 1 applic Documented by: Guaifenesin (Robitussin -) 10 ml PO Q4H PRN PRN Reason: COUGH Sodium Chloride (Normal Saline -) 250 mls @ 3,000 mls/hr IV PRN PRN PRN Reason: Hypotension during Dialysis Stop: 02/13/20 14:06 Insulin Aspart (Novolog Vial Sliding Scale -) 1 vial SQ Q6HPO [facility]; Protocol Last Admin: 02/13/20 14:04 Dose: Not Given Documented by: Metoprolol Tartrate (Lopressor -) 25 mg PO BID [facility] Last Admin: 02/13/20 14:02 Dose: 25 mg Documented by: - Objective Vital Signs: Vital Signs Temperature 97.7 F 02/13/20 14:37 Pulse Rate 100 H 02/13/20 14:37 Respiratory Rate 18 02/13/20 14:37 Blood Pressure 122/82 02/13/20 14:37 O2 Sat by Pulse Oximetry (%) 100 02/13/20 10:00 Constitutional: Yes: No Distress Eyes: Yes: Conjunctiva Clear Cardiovascular: Yes: Regular Rate and Rhythm Respiratory: Yes: CTA Bilaterally Gastrointestinal: Yes: Normal Bowel Sounds, Soft Edema: Yes Labs: CBC, BMP 02/13/20 07:15 02/13/20 07:15 INR, PTT INR 1.56 (0.83-1.09) H 02/02/20 20:30 Fibrinogen 448.0 mg/dL (238-498) 02/05/20 06:00 Assessment/Plan FEVER ? SOURCE S/P ACUTE CVA S/P RESP FAILURE/ EXTUBATION S/P RLL PNEUMONIA ESRD LEUKOCYTOSIS OBS RECULTURED REPEAT C DIFF VANCO/ CEFEPIME X 1 DOSE ? D/C CVP
[2020-02-13] MEDS ORDERED: VANCOMYCIN 1 GRAM (PRE-DOCKED) 1,000 MG/250 ML BAG IVPB ONE (16:00)
[2020-02-13] MEDS ORDERED: CEFEPIME HCL 1 GM VIAL (RESTRICTED TO ID) ONE (16:06)
[2020-02-13] MEDS ORDERED: DEXTROSE 5%-WATER 100 ML IVPB ONE (16:06)
--- NOTE | 2020-02-13 23:01 | PN ---
Progress Note (short form) - Note Progress Note: 74 year old female brought patient from [place] for unreponsivness for two days prior to admission. Patient has history of stroke three months ago and has been decline since than. Patient has no seizure, she has high wbc and suspected to have aspiration pneumonia. Patient has large right mca cerebral edema. patient was intubated as family cancelled DNR. Over last few days, she has peg tube placed and extubated. She do not follow command, and able to open eye and winces to pain , no new symptoms. Patient is stable, going back to [place] tomorrow. low grade temperature, mental status unchnaged, high wbc NEUROLOGICAL EXAMINATION Patient is comatose, and wince to pain, neck is supple afebrile pupils is small sluggsihly reactive gag and corneal reflex is present bp is maintained ct head showed large right mca cerebral edema with minimal hemorrhagic transformation repeat ct head done on january 28 Assessment/Plan 1. Large right mca acute stroke also old left mca stroke now she has bihemispheric stroke with minimal reponsivness, -- low grade temperature and high wbc Plan: continue supportive care and [facility]. - Id following for high wbc and low grade fever prognosis is guarded. Pippa sol so much Norman Plascencia MD
[2020-02-13] MEDS ORDERED: MEROPENEM 1 GM in DEXTROSE 5%-WATER 100 ML IVPB ONE (23:25)
--- NOTE | 2020-02-13 23:42 | HOSP ---
Subjective - Review of Symptoms Events since last encounter: Nurse reported, lab states pt has positive blood cultures (gram neg bacilli x 2 bottles). Pt was dosed cefipime and vanco today. Pt ordered for renal dose cefipime on 02/13, ID following and will direct patient's regimen. Left TLC in situ, as per nurse, this her only access. Would d/c in favor of PICC line. This will be discussed with the family. Physical Examination Vital Signs: Vital Signs Temperature 99.6 F 02/13/20 22:00 Pulse Rate 102 H 02/13/20 22:00 Respiratory Rate 02/13/20 22:00 Blood Pressure 131/62 02/13/20 22:00 O2 Sat by Pulse Oximetry (%) 100 02/13/20 22:00 Labs: CBC, BMP 02/13/20 07:15 02/13/20 07:15
[2020-02-14] MEDS: INSULIN SLIDING SCALE (NOVOLOG) 1 VIAL SQ SCH ×4 (00:59→17:44)
[2020-02-14] MEDS: ACETAMINOPHEN 650 MG/20.3 ML ORAL SOLUTION (CUPS) PO PRN ×3 (01:28→23:34)
[2020-02-14] MEDS: ALBUTEROL SO4 2.5/IPRATROPIUM 0.5 INH SOL 3 ML VIAL.NEB. NEB SCH (08:21)
[2020-02-14] MEDS: METOPROLOL TARTRATE 25 MG TABLET (FP) PO SCH ×2 (11:03→23:00)
[2020-02-14] MEDS: amLODIPine BESYLATE 10 MG TABLET (FP) NGT SCH (11:03)
--- NOTE | 2020-02-14 11:09 | PN ---
Progress Note (short form) - Note Progress Note: maintaining on NC high grade temps winces when examined open eyes random high WBC watery stools Vital Signs - 24 hr 02/13/20 02/13/20 02/13/20 12:10 12:40 13:09 Temperature Pulse Rate 94 H 98 H 92 H Respiratory 18 18 18 Rate Blood Pressure 104/60 109/56 L 113/80 O2 Sat by Pulse Oximetry (%) 02/13/20 02/13/20 02/13/20 13:38 13:40 14:37 Temperature 97.7 F Pulse Rate 90 94 H 100 H Respiratory 18 18 18 Rate Blood Pressure 112/62 112/68 122/82 O2 Sat by Pulse Oximetry (%) 02/13/20 02/13/20 02/14/20 21:00 22:00 02:00 Temperature 99.6 F 101.4 F H Pulse Rate 102 H 107 H Respiratory 20 20 20 Rate Blood Pressure 131/62 125/51 L O2 Sat by Pulse 100 100 100 Oximetry (%) 02/14/20 06:00 Temperature 99.1 F Pulse Rate 97 H Respiratory 20 Rate Blood Pressure 104/46 L O2 Sat by Pulse 100 Oximetry (%) Current Medications Generic Name Dose Route Start Last Admin Trade Name Freq PRN Reason Stop Dose Admin Acetaminophen 650 mg 02/09/20 09:27 02/14/20 01:28 Tylenol Oral Solution - PO 650 mg Q6H PRN Administration PAIN LEVEL 4 - 6 Amlodipine Besylate 10 mg 02/09/20 10:00 02/14/20 11:03 Norvasc - NGT Not Given DAILY [facility] Collagenase 1 applic 02/09/20 10:00 02/13/20 14:03 Santyl - TP 1 applic DAILY [facility] Administration Protocol Guaifenesin 10 ml 02/09/20 09:27 Robitussin - PO Q4H PRN COUGH Sodium Chloride 250 mls @ 3,000 mls/hr 02/12/20 14:06 Normal Saline - IV 02/13/20 14:06 PRN PRN Hypotension during Dialysis Cefepime HCl 1 gm/ Dextrose 100 mls @ 200 mls/hr 02/14/20 11:45 IVPB DAILY [facility] Protocol Insulin Aspart 1 vial 02/09/20 12:00 02/14/20 06:25 Novolog Vial Sliding Scale - SQ Not Given Q6HPO [facility] Protocol Metoprolol Tartrate 25 mg 02/09/20 10:00 02/14/20 11:03 Lopressor - PO Not Given BID [facility] Laboratory Results - last 24 hr 02/13/20 02/14/20 02/14/20 16:14 00:51 06:09 POC Glucometer 150 316 129 Microbiology 02/13/20 07:28 Blood Culture - Preliminary Blood - Peripheral Venous Proteus Species 02/13/20 07:15 Blood Culture - Preliminary Blood - Peripheral Venous Proteus Species S1 S2 RRR left side edematous Lungs decreased Abd- soft, NT, GT+ No edema flexiseal ct head showed large right mca cerebral edema with minimal hemorrhagic transformation repeat ct head done on january 28 A/P fever 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 ESRD on HD aspiration pneumonia acute respiratory failure -- palliative care on the case --restarted iv antibiotics -- pt is FULL CODE -- continue with current care -- poor prognosis blood cultures repeated-- positive for proteus needs blood cultures from CV line prognosis guarded need TLC dc , place another line if possible check cdiff Problem List - Problems (1) Altered mental status Code(s): R41.82 - ALTERED MENTAL STATUS, UNSPECIFIED (2) Lactic acidosis Code(s): E87.2 - ACIDOSIS (3) Pneumonia, aspiration Code(s): J69.0 - PNEUMONITIS DUE TO INHALATION OF FOOD AND VOMIT (4) Stroke Code(s): I63.9 - CEREBRAL INFARCTION, UNSPECIFIED (5) ESRD on dialysis Code(s): N18.6 - END STAGE RENAL DISEASE; Z99.2 - DEPENDENCE ON RENAL DIALYSIS (6) Hypertension Code(s): I10 - ESSENTIAL (PRIMARY) HYPERTENSION
[2020-02-14] MEDS ORDERED: PT OWN MED DRAWER 7, Y5N ONE (11:25)
[2020-02-14] MEDS ORDERED: CEFEPIME 1 GM in DEXTROSE 5%-WATER 100 ML IVPB SCH (11:45)
[2020-02-14] MEDS ORDERED: CEFEPIME 0.5 GM in DEXTROSE 5%-WATER - 100 ML IVPB ONE (12:00)
[2020-02-14] MEDS: COLLAGENASE CLOSTRIDIUM HIST. 30 GRAMS TUBE TP SCH (12:12)
--- NOTE | 2020-02-14 13:34 | PN ---
Progress Note, Physician History of Present Illness: pulmonary no change unresponsive on nasal o2,-rep distress - Current Medication List Current Medications: Active Medications Acetaminophen (Tylenol Oral Solution -) 650 mg PO Q6H PRN PRN Reason: PAIN LEVEL 4 - 6 Last Admin: 02/14/20 01:28 Dose: 650 mg Documented by: Amlodipine Besylate (Norvasc -) 10 mg NGT DAILY [facility] Last Admin: 02/14/20 11:03 Dose: Not Given Documented by: Collagenase (Santyl -) 1 applic TP DAILY [facility]; Protocol Last Admin: 02/14/20 12:12 Dose: 1 applic Documented by: Guaifenesin (Robitussin -) 10 ml PO Q4H PRN PRN Reason: COUGH Sodium Chloride (Normal Saline -) 250 mls @ 3,000 mls/hr IV PRN PRN PRN Reason: Hypotension during Dialysis Stop: 02/13/20 14:06 Cefepime HCl 1 gm/ Dextrose 100 mls @ 200 mls/hr IVPB DAILY [facility]; Protocol Insulin Aspart (Novolog Vial Sliding Scale -) 1 vial SQ Q6HPO [facility]; Protocol Last Admin: 02/14/20 12:11 Dose: 2 units Documented by: Metoprolol Tartrate (Lopressor -) 25 mg PO BID [facility] Last Admin: 02/14/20 11:03 Dose: Not Given Documented by: - Objective Vital Signs: Vital Signs Temperature 99.1 F 02/14/20 06:00 Pulse Rate 97 H 02/14/20 06:00 Respiratory Rate 20 02/14/20 06:00 Blood Pressure 104/46 L 02/14/20 06:00 O2 Sat by Pulse Oximetry (%) 100 02/14/20 09:00 Constitutional: Yes: Thin, Other (unresponsive) Eyes: Yes: WNL HENT: Yes: WNL Neck: Yes: WNL Cardiovascular: Yes: Regular Rate and Rhythm, S1, S2 Respiratory: Yes: Diminished Gastrointestinal: Yes: Normal Bowel Sounds, Soft Extremities: Yes: WNL Edema: No Labs: CBC, BMP 02/13/20 07:15 Problem List - Problems (1) Altered mental status Code(s): R41.82 - ALTERED MENTAL STATUS, UNSPECIFIED (2) Pneumonia, aspiration Code(s): J69.0 - PNEUMONITIS DUE TO INHALATION OF FOOD AND VOMIT (3) Stroke Code(s): I63.9 - CEREBRAL INFARCTION, UNSPECIFIED (4) Hypertension Code(s): I10 - ESSENTIAL (PRIMARY) HYPERTENSION (5) ESRD on dialysis Code(s): N18.6 - END STAGE RENAL DISEASE; Z99.2 - DEPENDENCE ON RENAL DIALYSIS Assessment/Plan ASSESSMENT AND PLAN: Acute Hypoxic Respiratory Failure Acute CVA Pneumonia likely Aspiration Acute Blood Loss Anemia ESRD on HD HTN DM Hyperlipidemia h/o CVA - completed antibiotics - monitor urine output, creatinine - O2 to keep SpO2 >90% - HD per renal - aspiration precautions - enteral feeds - DVT prophylaxis DR RAMIREZ
--- NOTE | 2020-02-14 13:53 | PN ---
Progress Note, Physician Chief Complaint: RECURRENT TEMP WBC MARKEDLY ELEVATED NOT VERBALLY RESPONSIVE BREATHING NON-LABORED BC PROTEUS SP. - Current Medication List Current Medications: Active Medications Acetaminophen (Tylenol Oral Solution -) 650 mg PO Q6H PRN PRN Reason: PAIN LEVEL 4 - 6 Last Admin: 02/14/20 01:28 Dose: 650 mg Documented by: Amlodipine Besylate (Norvasc -) 10 mg NGT DAILY [facility] Last Admin: 02/14/20 11:03 Dose: Not Given Documented by: Collagenase (Santyl -) 1 applic TP DAILY [facility]; Protocol Last Admin: 02/14/20 12:12 Dose: 1 applic Documented by: Guaifenesin (Robitussin -) 10 ml PO Q4H PRN PRN Reason: COUGH Sodium Chloride (Normal Saline -) 250 mls @ 3,000 mls/hr IV PRN PRN PRN Reason: Hypotension during Dialysis Stop: 02/13/20 14:06 Cefepime HCl 1 gm/ Dextrose 100 mls @ 200 mls/hr IVPB DAILY [facility]; Protocol Insulin Aspart (Novolog Vial Sliding Scale -) 1 vial SQ Q6HPO [facility]; Protocol Last Admin: 02/14/20 12:11 Dose: 2 units Documented by: Metoprolol Tartrate (Lopressor -) 25 mg PO BID [facility] Last Admin: 02/14/20 11:03 Dose: Not Given Documented by: - Objective Vital Signs: Vital Signs Temperature 99.1 F 02/14/20 06:00 Pulse Rate 97 H 02/14/20 06:00 Respiratory Rate 20 02/14/20 06:00 Blood Pressure 104/46 L 02/14/20 06:00 O2 Sat by Pulse Oximetry (%) 100 02/14/20 09:00 Constitutional: Yes: No Distress Eyes: Yes: Conjunctiva Clear Cardiovascular: Yes: Regular Rate and Rhythm, S1, S2 Respiratory: Yes: Diminished Gastrointestinal: Yes: Normal Bowel Sounds, Soft. No: Tenderness Edema: LUE: 1+, RUE: 1+, LLE: 1+, RLE: 1+ Labs: CBC, BMP 02/13/20 07:15 02/13/20 07:15 INR, PTT INR 1.56 (0.83-1.09) H 02/02/20 20:30 Fibrinogen 448.0 mg/dL (238-498) 02/05/20 06:00 Assessment/Plan FEVER GRAM NEGATIVE BACTEREMIA SEVERAL POTENTIAL SOURCES CATHETER, LUNG, DECUBITUS, S/P ACUTE CVA S/P RESP FAILURE/ EXTUBATION S/P RLL PNEUMONIA ESRD LEUKOCYTOSIS OBS REPEAT C DIFF CONTINUE CEFEPIME ? D/C CVP
[2020-02-14] MEDS ORDERED: DEXTROSE 5%-WATER 100 ML IVPB ONE (14:03)
[2020-02-14] MEDS ORDERED: CEFEPIME HCL 1 GM VIAL (RESTRICTED TO ID) ONE (14:03)
[2020-02-14] MEDS: CEFEPIME 1 GM in DEXTROSE 5%-WATER 100 ML IVPB SCH (14:07)
--- NOTE | 2020-02-14 15:03 | PN ---
Progress Note (short form) - Note Progress Note: RENAL pt on telemetry she is poorly responsive Last Vital Signs Temp Pulse Resp BP Pulse Ox 99.1 F 97 H 20 104/46 L 100 02/14/20 06:00 02/14/20 06:00 02/14/20 06:00 02/14/20 06:00 02/14/20 09:00 lungs clear cvs s1s2 rr +DAVE abd soft ext upper ext edema neuro occasionally opens eyes, otherwise no response Current Medications Generic Name Dose Route Start Last Admin Trade Name Freq PRN Reason Stop Dose Admin Acetaminophen 650 mg 02/09/20 09:27 02/14/20 14:08 Tylenol Oral Solution - PO 650 mg Q6H PRN Administration PAIN LEVEL 4 - 6 Amlodipine Besylate 10 mg 02/09/20 10:00 02/14/20 11:03 Norvasc - NGT Not Given DAILY [facility] Collagenase 1 applic 02/09/20 10:00 02/14/20 12:12 Santyl - TP 1 applic DAILY [facility] Administration Protocol Guaifenesin 10 ml 02/09/20 09:27 Robitussin - PO Q4H PRN COUGH Sodium Chloride 250 mls @ 3,000 mls/hr 02/12/20 14:06 Normal Saline - IV 02/13/20 14:06 PRN PRN Hypotension during Dialysis Cefepime HCl 1 gm/ Dextrose 100 mls @ 200 mls/hr 02/14/20 11:45 02/14/20 14:07 IVPB 200 mls/hr DAILY [facility] Administration Protocol Insulin Aspart 1 vial 02/09/20 12:00 02/14/20 12:11 Novolog Vial Sliding Scale - SQ 2 units Q6HPO [facility] Administration Protocol Metoprolol Tartrate 25 mg 02/09/20 10:00 02/14/20 11:03 Lopressor - PO Not Given BID [facility] Laboratory Last Values WBC 29.2 K/mm3 (4.0-10.0) H 02/13/20 07:15 RBC 2.65 M/mm3 (3.60-5.2) L 02/13/20 07:15 Hgb 7.8 GM/dL (10.7-15.3) L 02/13/20 07:15 Hct 24.9 % (32.4-45.2) L 02/13/20 07:15 MCV 94.1 fl (80-96) 02/13/20 07:15 MCH 29.5 pg (25.7-33.7) 02/13/20 07:15 MCHC 31.4 g/dl (32.0-36.0) L 02/13/20 07:15 RDW 17.5 % (11.6-15.6) H 02/13/20 07:15 Plt Count 464 K/MM3 (134-434) H D 02/13/20 07:15 MPV 10.0 fl (7.5-11.1) 02/13/20 07:15 Absolute Neuts (auto) 26.3 K/mm3 (1.5-8.0) H 02/13/20 07:15 Total Counted 100 01/15/20 08:40 Neutrophils % 90.3 % (42.8-82.8) H 02/13/20 07:15 Neutrophils % (Manual) 81.6 % (42.8-82.8) 02/13/20 07:15 Band Neutrophils % 6.8 % 02/13/20 07:15 Lymphocytes % 3.6 % (8-40) L D 02/13/20 07:15 Lymphocytes % (Manual) 1.9 % (8-40) L D 02/13/20 07:15 Monocytes % 5.2 % (3.8-10.2) 02/13/20 07:15 Monocytes % (Manual) 8 % (3.8-10.2) D 02/13/20 07:15 Eosinophils % 0.6 % (0-4.5) 02/13/20 07:15 Eosinophils % (Manual) 1.9 % (0-4.5) D 02/13/20 07:15 Basophils % 0.3 % (0-2.0) 02/13/20 07:15 Basophils % (Manual) 0.0 % (0-2.0) 02/13/20 07:15 Myelocytes % (Man) 0 % (0-2) 02/13/20 07:15 Promyelocytes % (Man) 0 % (0-2) 02/13/20 07:15 Blast Cells % (Manual) 0 % (0-0) 02/13/20 07:15 Nucleated RBC % 1 % (0-0) H 02/13/20 07:15 Metamyelocytes 0 % (0-2) D 02/13/20 07:15 Hypochromia 0 02/13/20 07:15 Platelet Estimate Normal 02/13/20 07:15 Platelet Comment Present 02/13/20 07:15 Platelet Comment Large platelets 01/15/20 08:40 Polychromasia 0 02/13/20 07:15 Poikilocytosis 0 02/13/20 07:15 Anisocytosis 1+ 02/13/20 07:15 Microcytosis 1+ 02/13/20 07:15 Macrocytosis 1+ 02/13/20 07:15 [place] Cells 1+ 01/18/20 06:10 Haptoglobin 246 mg/dL (42-346) 02/02/20 20:30 PT with INR 18.50 SEC (9.7-13.0) H 02/02/20 20:30 INR 1.56 (0.83-1.09) H 02/02/20 20:30 PTT (Actin FS) 39.3 SECONDS (25.2-36.5) H 02/02/20 20:30 Fibrinogen 448.0 mg/dL (238-498) 02/05/20 06:00 D-Dimer 1385 ng/ml (0-500) H 02/02/20 20:30 Anticoagulation Therapy No Result Required. 02/06/20 14:07 Puncture Site Right radial 02/06/20 14:07 Patient Temperature No Result Required. 02/06/20 14:07 ABG pH 7.503 (7.350-7.450) H 02/06/20 14:07 ABG pCO2 38.60 mmHg (35-45) 02/06/20 14:07 ABG pO2 56.3 mmHg (80-100) L 02/06/20 14:07 ABG HCO3 29.6 mmol/L (22-27) H 02/06/20 14:07 ABG O2 Sat (Measured) 91.8 mmHg (95-98) L 02/06/20 14:07 ABG O2 Content No Result Required. 02/06/20 14:07 ABG Base Excess 6.1 mmol/L (-2-2) H 02/06/20 14:07 Sai Test Positive 02/06/20 14:07 VBG pH 7.309 (7.310-7.410) L 01/14/20 20:30 POC VBG pCO2 50.0 mmHg (38-52) 01/14/20 20:30 POC VBG pO2 68.5 mmHg (28-48) H 01/14/20 20:30 VBG HCO3 24.6 mmol/L (23-29) 01/14/20 20:30 VBG O2 Sat (Rayray) 91.9 % (70-80) H 01/14/20 20:30 VBG Base Excess -2.2 mmol/L (-2-2) L 01/14/20 20:30 Patient On Oxygen Yes 02/06/20 14:07 O2 Delivery Device V/m 02/06/20 14:07 Oxygen Flow Rate 50 02/06/20 14:07 Vent Mode No Result Required. 02/06/20 14:07 Vent Rate No Result Required. 02/06/20 14:07 Mechanical Rate No Result Required. 02/06/20 14:07 PEEP No Result Required. 02/06/20 14:07 Pressure Support Vent No Result Required. 02/06/20 14:07 Sodium 140 mmol/L (136-145) 02/13/20 07:15 Potassium 4.1 mmol/L (3.5-5.1) 02/13/20 07:15 Chloride 100 mmol/L (98-107) 02/13/20 07:15 Carbon Dioxide 24 mmol/L (21-32) 02/13/20 07:15 Anion Gap 16 MMOL/L (8-16) 02/13/20 07:15 BUN 66.2 mg/dL (7-18) H 02/13/20 07:15 Creatinine 3.5 mg/dL (0.55-1.3) H 02/13/20 07:15 Est GFR (CKD-EPI)AfAm 13.94 02/13/20 07:15 Est GFR (CKD-EPI)NonAf 12.02 02/13/20 07:15 POC Glucometer 225 UNITS (80-120) 02/14/20 12:07 Random Glucose 213 mg/dL (74-106) H 02/13/20 07:15 Lactic Acid 1.9 mmol/L (0.4-2.0) 01/26/20 23:40 Calcium 9.2 mg/dL (8.5-10.1) 02/13/20 07:15 Phosphorus 1.1 mg/dL (2.5-4.9) L* 02/09/20 05:25 Magnesium 2.1 mg/dL (1.8-2.4) 02/09/20 05:25 Iron 10 ug/dL (50-175) L 02/02/20 20:30 TIBC 53 ug/dL (250-450) L 02/02/20 20:30 Iron Saturation 18 % (17.5-39) 02/02/20 20:30 Unsaturated IBC 43 ug/dL (200-275) L 02/02/20 20:30 Ferritin 3483.5 ng/ml (8-388) H 02/02/20 20:30 Total Bilirubin 0.8 mg/dL (0.2-1) 02/13/20 07:15 Direct Bilirubin 0.1 mg/dL (0.0-0.2) 01/28/20 05:40 AST 19 U/L (15-37) 02/13/20 07:15 ALT 10 U/L (13-61) L 02/13/20 07:15 Alkaline Phosphatase 298 U/L (45-117) H 02/13/20 07:15 LD Total 368 U/L (84-246) H 02/03/20 10:30 Creatine Kinase 61 U/L (26-192) 02/03/20 10:30 Troponin I 4.74 ng/ml (0.00-0.05) H* 02/06/20 15:22 Total Protein 5.4 g/dl (6.4-8.2) L 02/13/20 07:15 Albumin 1.1 g/dl (3.4-5.0) L 02/13/20 07:15 Beta-Hydroxybutyrate 8.7 mg/dL (0.2-2.8) H 01/15/20 08:40 TSH 1.32 uIU/ml (0.358-3.74) 01/14/20 20:10 Stool Occult Blood Positive (NEGATIVE) 02/02/20 21:00 COVID-19 ([facility]) Not detected (Not Detected) 02/11/20 01:40 Hep Bs Antigen Negative (Negative) 01/15/20 14:50 Hep C Ab Diagnostic 0.1 s/co ratio (0.0-0.9) 01/15/20 14:50 Blood Type O POSITIVE 02/01/20 11:10 Antibody Screen Negative 02/01/20 11:10 Direct Antiglob Test Positive (NEGATIVE) 02/02/20 19:35 Crossmatch See Detail 02/02/20 19:35 IMPRESSION esrd htn s/p cva x 2- hypokalemia covid 19 neg hypernatremia resolved PLAN continue current management will dialyze again tomorrow MV
[2020-02-14] MEDS ORDERED: SODIUM CHLORIDE 250 ML IV PRN (15:08)
--- NOTE | 2020-02-14 17:26 | PN ---
Progress Note, Physician History of Present Illness: 74 year old female with medical history of ESRD (on HD), hypertension, DMII, GERD, HTN, HL, aphasia and stroke 3 months ago, admitted to ICU fro ED for progressive weakness and reported unresponsiveness. Head CT showed (01/13) right pareital, occipital and temporal lobe suggestive of acute CVA no acute intracranial bleed ; Prolonged ICU course complicated by Acxute worsening of chronic anemia, likely from stomal bleed. Elevated TNIs most likely anemia induced ischemia. - Current Medication List Current Medications: Active Medications Acetaminophen (Tylenol Oral Solution -) 650 mg PO Q6H PRN PRN Reason: PAIN LEVEL 4 - 6 Last Admin: 02/14/20 14:08 Dose: 650 mg Documented by: Amlodipine Besylate (Norvasc -) 10 mg NGT DAILY [facility] Last Admin: 02/14/20 11:03 Dose: Not Given Documented by: Collagenase (Santyl -) 1 applic TP DAILY [facility]; Protocol Last Admin: 02/14/20 12:12 Dose: 1 applic Documented by: Guaifenesin (Robitussin -) 10 ml PO Q4H PRN PRN Reason: COUGH Sodium Chloride (Normal Saline -) 250 mls @ 3,000 mls/hr IV PRN PRN PRN Reason: Hypotension during Dialysis Stop: 02/13/20 14:06 Cefepime HCl 1 gm/ Dextrose 100 mls @ 200 mls/hr IVPB DAILY [facility]; Protocol Last Admin: 02/14/20 14:07 Dose: 200 mls/hr Documented by: Sodium Chloride (Normal Saline -) 250 mls @ 3,000 mls/hr IV PRN PRN PRN Reason: Hypotension during Dialysis Stop: 02/15/20 15:08 Insulin Aspart (Novolog Vial Sliding Scale -) 1 vial SQ Q6HPO [facility]; Protocol Last Admin: 02/14/20 12:11 Dose: 2 units Documented by: Metoprolol Tartrate (Lopressor -) 25 mg PO BID [facility] Last Admin: 02/14/20 11:03 Dose: Not Given Documented by: - Objective Vital Signs: Vital Signs Temperature 100.6 F H 02/14/20 15:09 Pulse Rate 111 H 02/14/20 15:09 Respiratory Rate 20 02/14/20 15:09 Blood Pressure 112/53 L 08/12/20 15:09 O2 Sat by Pulse Oximetry (%) 100 02/14/20 09:00 Eyes: Yes: WNL, Conjunctiva Clear, EOM Intact HENT: Yes: WNL, Atraumatic, Normocephalic Neck: Yes: WNL, Supple, Trachea Midline Cardiovascular: Yes: WNL, Regular Rate and Rhythm Respiratory: Yes: WNL, Regular, CTA Bilaterally Gastrointestinal: Yes: WNL, Normal Bowel Sounds Genitourinary: Yes: WNL Musculoskeletal: Yes: WNL Extremities: Yes: WNL Edema: No Integumentary: Yes: WNL Labs: CBC, BMP 02/13/20 07:15 02/13/20 07:15 INR, PTT INR 1.56 (0.83-1.09) H 02/02/20 20:30 Fibrinogen 448.0 mg/dL (238-498) 02/05/20 06:00 Problem List - Problems (1) Altered mental status Code(s): R41.82 - ALTERED MENTAL STATUS, UNSPECIFIED (2) Anemia Code(s): D64.9 - ANEMIA, UNSPECIFIED (3) Lactic acidosis Code(s): E87.2 - ACIDOSIS (4) Pneumonia, aspiration Code(s): J69.0 - PNEUMONITIS DUE TO INHALATION OF FOOD AND VOMIT (5) Stroke Code(s): I63.9 - CEREBRAL INFARCTION, UNSPECIFIED (6) Clotted dialysis access Code(s): T82.49XA - OTH COMPLICATION OF VASCULAR DIALYSIS CATHETER, INIT ENCNTR (7) Diabetes Code(s): E11.9 - TYPE 2 DIABETES MELLITUS WITHOUT COMPLICATIONS (8) ESRD on dialysis Code(s): N18.6 - END STAGE RENAL DISEASE; Z99.2 - DEPENDENCE ON RENAL DIALYSIS (9) Hypertension Code(s): I10 - ESSENTIAL (PRIMARY) HYPERTENSION (10) SOB (shortness of breath) Code(s): R06.02 - SHORTNESS OF BREATH Assessment/Plan Acute right temporoparietal infarct -- Large MCA aspiration pneumonia ESRD -HD Respiratory failure severe Anemia New elevated TNIs - most likely due to demand ischemia due to severe anemia. New LBBB 7-25-20 s/p PEG Nl EF Moderater MR moderate PHT Plan: Replete K+ and PO4+ TNi trending down EKG: NSR; LBBB keep HCT around 30% Continue Metoprolol tartrate 25 BID Start ASA if cleared by Neuro and GI Further cardiac w/u will depend on mental status recovery
--- NOTE | 2020-02-14 21:53 | PN ---
Progress Note (short form) - Note Progress Note: 74 year old [place] for unreponsivness for two days prior to admission. Patient has history of stroke three months ago and has been decline since than. Patient has no seizure, she has high wbc and suspected to have aspiration pneumonia. Patient has large right mca cerebral edema. patient was intubated as family cancelled DNR. Over last few days, she has peg tube placed and extubated. She do not follow command, and able to open eye and winces to pain , no new symptoms. wbc is coming up and her mental status remain same NEUROLOGICAL EXAMINATION Patient is comatose, and wince to pain, neck is supple afebrile pupils is small sluggsihly reactive gag and corneal reflex is present bp is maintained ct head showed large right mca cerebral edema with minimal hemorrhagic transformation repeat ct head done on january 28 Assessment/Plan 1. Large right mca acute stroke also old left mca stroke now she has bihemispheric stroke with minimal reponsivness, -- low grade temperature and high wbc Plan: continue supportive care and waiting to be discharge - Id following for high wbc and low grade fever prognosis is guarded. Pippa sol so much Norman Plascencia MD
[2020-02-15] MEDS: INSULIN SLIDING SCALE (NOVOLOG) 1 VIAL SQ SCH ×4 (06:39→17:41)
[2020-02-15 08:22] LABS: HEMATOCRIT 25.9 % (32.4-45.2); HEMOGLOBIN 8.1 GM/dL (10.7-15.3); MCH 29.4 pg (25.7-33.7); MCHC 31.4 g/dl (32.0-36.0); MEAN CELL VOLUME 93.7 fl (80-96); MEAN PLT VOLUME 9.3 fl (7.5-11.1); PLATELET COUNT 654 K/MM3 (134-434); RBC 2.77 M/mm3 (3.60-5.2); RDW 17.5 % (11.6-15.6)
[2020-02-15 08:45] LABS: WHITE BLOOD COUNT 32.1 K/mm3 (4.0-10.0)
[2020-02-15 08:53] LABS: POTASSIUM 4.2 mmol/L (3.5-5.1)
[2020-02-15 09:03] LABS: ALBUMIN 1.2 g/dl (3.4-5.0); BILIRUBIN,TOTAL 0.5 mg/dL (0.2-1); BLOOD UREA NITROGEN 57.1 mg/dL (7-18); CALCIUM 9.5 mg/dL (8.5-10.1); CREATININE 3.1 mg/dL (0.55-1.3)
[2020-02-15] MEDS: amLODIPine BESYLATE 10 MG TABLET (FP) NGT SCH (10:08)
[2020-02-15] MEDS: METOPROLOL TARTRATE 25 MG TABLET (FP) PO SCH ×2 (10:08→22:43)
--- NOTE | 2020-02-15 10:49 | PN ---
Progress Note (short form) - Note Progress Note: PULMONARY Remains poorly responsive. Blood cultures growing proteus. Vital Signs Period Temp Pulse Resp BP Sys/Ramirez Pulse Ox Last 24 Hr 98 F-101.2 F 82-111 18-20 112-150/53-68 100-100 Gen: poorly responsive Heart: RRR Lung: decreased breath sounds at the bases Abd: soft, nontender Ext: no edema CBC, BMP 02/15/20 07:10 02/15/20 07:10 Active Medications Acetaminophen (Tylenol Oral Solution -) 650 mg PO Q6H PRN PRN Reason: PAIN LEVEL 4 - 6 Last Admin: 02/14/20 23:34 Dose: 650 mg Documented by: Amlodipine Besylate (Norvasc -) 10 mg NGT DAILY [facility] Last Admin: 02/15/20 10:08 Dose: 10 mg Documented by: Collagenase (Santyl -) 1 applic TP DAILY [facility]; Protocol Last Admin: 02/14/20 12:12 Dose: 1 applic Documented by: Guaifenesin (Robitussin -) 10 ml PO Q4H PRN PRN Reason: COUGH Sodium Chloride (Normal Saline -) 250 mls @ 3,000 mls/hr IV PRN PRN PRN Reason: Hypotension during Dialysis Stop: 02/13/20 14:06 Cefepime HCl 1 gm/ Dextrose 100 mls @ 200 mls/hr IVPB DAILY [facility]; Protocol Last Admin: 02/14/20 14:07 Dose: 200 mls/hr Documented by: Sodium Chloride (Normal Saline -) 250 mls @ 3,000 mls/hr IV PRN PRN PRN Reason: Hypotension during Dialysis Stop: 02/15/20 15:08 Insulin Aspart (Novolog Vial Sliding Scale -) 1 vial SQ Q6HPO [facility]; Protocol Last Admin: 02/15/20 06:39 Dose: 2 units Documented by: Metoprolol Tartrate (Lopressor -) 25 mg PO BID [facility] Last Admin: 02/15/20 10:08 Dose: 25 mg Documented by: A/P Acute Hypoxic Respiratory Failure improving Acute CVA Pneumonia likely Aspiration Acute Blood Loss Anemia ESRD on HD HTN DM Hyperlipidemia h/o CVA - continue antibiotics - f/u pending cultures - monitor urine output, creatinine - O2 to keep SpO2 >90% - HD per renal - aspiration precautions - enteral feeds - DVT prophylaxis
--- NOTE | 2020-02-15 11:27 | PN ---
Progress Note (short form) - Note Progress Note: RENAL pt on telemetry she is poorly responsive Last Vital Signs Temp Pulse Resp BP Pulse Ox 98.7 F 107 H 18 117/53 L 100 02/15/20 09:17 02/15/20 09:17 02/15/20 09:17 02/15/20 09:17 02/15/20 09:17 lungs clear cvs s1s2 rr +DAVE abd soft ext upper ext edema neuro occasionally opens eyes, otherwise no response Current Medications Generic Name Dose Route Start Last Admin Trade Name Mellisa PRN Reason Stop Dose Admin Acetaminophen 650 mg 02/09/20 09:27 02/14/20 23:34 Tylenol Oral Solution - PO 650 mg Q6H PRN Administration PAIN LEVEL 4 - 6 Amlodipine Besylate 10 mg 02/09/20 10:00 02/15/20 10:08 Norvasc - NGT 10 mg DAILY [facility] Administration Collagenase 1 applic 02/09/20 10:00 02/14/20 12:12 Santyl - TP 1 applic DAILY [facility] Administration Protocol Guaifenesin 10 ml 02/09/20 09:27 Robitussin - PO Q4H PRN COUGH Sodium Chloride 250 mls @ 3,000 mls/hr 02/12/20 14:06 Normal Saline - IV 02/13/20 14:06 PRN PRN Hypotension during Dialysis Cefepime HCl 1 gm/ Dextrose 100 mls @ 200 mls/hr 02/14/20 11:45 02/14/20 14:07 IVPB 200 mls/hr DAILY [facility] Administration Protocol Sodium Chloride 250 mls @ 3,000 mls/hr 02/14/20 15:08 Normal Saline - IV 02/15/20 15:08 PRN PRN Hypotension during Dialysis Insulin Aspart 1 vial 02/09/20 12:00 02/15/20 06:39 Novolog Vial Sliding Scale - SQ 2 units Q6HPO [facility] Administration Protocol Metoprolol Tartrate 25 mg 02/09/20 10:00 02/15/20 10:08 Lopressor - PO 25 mg BID [facility] Administration CBC, BMP 02/15/20 07:10 02/15/20 07:10 IMPRESSION esrd htn s/p cva x 2- hypokalemia covid 19 neg hypernatremia resolved leukocytosis proteus bacetermia PLAN continue current management will dialyze again today abx per id MV
[2020-02-15] MEDS: COLLAGENASE CLOSTRIDIUM HIST. 30 GRAMS TUBE TP SCH (11:37)
--- NOTE | 2020-02-15 12:08 | PN ---
Progress Note (short form) - Note Progress Note: maintaining on NC high grade temps winces when examined open eyes random high WBC Vital Signs - 24 hr 02/14/20 02/14/20 02/14/20 15:09 18:51 21:00 Temperature 100.6 F H Pulse Rate 111 H 82 Respiratory 20 20 20 Rate Blood Pressure 112/53 L 132/65 O2 Sat by Pulse 100 Oximetry (%) 02/14/20 02/14/20 02/15/20 22:00 22:35 02:00 Temperature 101.2 F H 100 F H Pulse Rate Respiratory 20 20 Rate Blood Pressure 150/68 O2 Sat by Pulse 100 100 Oximetry (%) 02/15/20 02/15/20 02/15/20 06:00 09:00 09:17 Temperature 98 F 98.7 F Pulse Rate 98 H 107 H Respiratory 20 18 18 Rate Blood Pressure 121/56 L 117/53 L O2 Sat by Pulse 100 100 100 Oximetry (%) Current Medications Generic Name Dose Route Start Last Admin Trade Name Freq PRN Reason Stop Dose Admin Acetaminophen 650 mg 02/09/20 09:27 02/14/20 23:34 Tylenol Oral Solution - PO 650 mg Q6H PRN Administration PAIN LEVEL 4 - 6 Amlodipine Besylate 10 mg 02/09/20 10:00 02/15/20 10:08 Norvasc - NGT 10 mg DAILY [facility] Administration Collagenase 1 applic 02/09/20 10:00 02/15/20 11:37 Santyl - TP 1 applic DAILY [facility] Administration Protocol Guaifenesin 10 ml 02/09/20 09:27 Robitussin - PO Q4H PRN COUGH Sodium Chloride 250 mls @ 3,000 mls/hr 02/12/20 14:06 Normal Saline - IV 02/13/20 14:06 PRN PRN Hypotension during Dialysis Cefepime HCl 1 gm/ Dextrose 100 mls @ 200 mls/hr 02/14/20 11:45 02/14/20 14:07 IVPB 200 mls/hr DAILY [facility] Administration Protocol Sodium Chloride 250 mls @ 3,000 mls/hr 02/14/20 15:08 Normal Saline - IV 02/15/20 15:08 PRN PRN Hypotension during Dialysis Insulin Aspart 1 vial 02/09/20 12:00 02/15/20 12:06 Novolog Vial Sliding Scale - SQ 2 units Q6HPO [facility] Administration Protocol Metoprolol Tartrate 25 mg 02/09/20 10:00 02/15/20 10:08 Lopressor - PO 25 mg BID [facility] Administration Laboratory Results - last 24 hr 02/14/20 02/14/20 02/15/20 16:46 23:59 06:23 WBC RBC Hgb Hct MCV MCH MCHC RDW Plt Count MPV Sodium Potassium Chloride Carbon Dioxide Anion Gap BUN Creatinine Est GFR (CKD-EPI)AfAm Est GFR (CKD-EPI)NonAf POC Glucometer 165 250 242 Random Glucose Calcium Total Bilirubin AST ALT Alkaline Phosphatase Total Protein Albumin 02/15/20 02/15/20 02/15/20 07:10 07:10 12:05 WBC 32.1 H* RBC 2.77 L Hgb 8.1 L Hct 25.9 L MCV 93.7 MCH 29.4 MCHC 31.4 L RDW 17.5 H Plt Count 654 H D MPV 9.3 Sodium 141 Potassium 4.2 Chloride 102 Carbon Dioxide 28 Anion Gap 11 BUN 57.1 H Creatinine 3.1 H Est GFR (CKD-EPI)AfAm 16.14 Est GFR (CKD-EPI)NonAf 13.92 POC Glucometer 249 Random Glucose 231 H Calcium 9.5 Total Bilirubin 0.5 AST 24 ALT 12 L Alkaline Phosphatase 344 H Total Protein 6.0 L Albumin 1.2 L Microbiology 02/14/20 10:12 Blood Culture - Preliminary Blood - Peripheral Venous NO GROWTH OBTAINED AFTER 24 HOURS, INCUBATION TO CONTINUE FOR 4 DAYS. 02/14/20 10:02 Blood Culture - Preliminary Blood - Peripheral Venous NO GROWTH OBTAINED AFTER 24 HOURS, INCUBATION TO CONTINUE FOR 4 DAYS. 02/13/20 07:28 Blood Culture - Final Blood - Peripheral Venous Proteus Mirabilis 02/13/20 07:15 Blood Culture - Final Blood - Peripheral Venous Proteus Mirabilis 02/13/20 22:38 Clostridioides difficile Antigen - Final Stool Clostridioides difficile Toxin Assay - Final S1 S2 RRR left side edematous Lungs decreased Abd- soft, NT, GT+ No edema flexiseal ct head showed large right mca cerebral edema with minimal hemorrhagic transformation repeat ct head done on january 28 A/P fever 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 ESRD on HD aspiration pneumonia acute respiratory failure -proteus in blood sepsis --restarted iv antibiotics -- pt is FULL CODE -- continue with current care -- poor prognosis blood cultures repeated-- positive for proteus repeated are negative so far s blood cultures from CV line-- negative prognosis guarded TLC dc , place another line if possible cdiff negative Problem List - Problems (1) Altered mental status Code(s): R41.82 - ALTERED MENTAL STATUS, UNSPECIFIED (2) Lactic acidosis Code(s): E87.2 - ACIDOSIS (3) Pneumonia, aspiration Code(s): J69.0 - PNEUMONITIS DUE TO INHALATION OF FOOD AND VOMIT (4) Stroke Code(s): I63.9 - CEREBRAL INFARCTION, UNSPECIFIED (5) ESRD on dialysis Code(s): N18.6 - END STAGE RENAL DISEASE; Z99.2 - DEPENDENCE ON RENAL DIALYSIS (6) Hypertension Code(s): I10 - ESSENTIAL (PRIMARY) HYPERTENSION
[2020-02-15] MEDS ORDERED: CEFEPIME HCL 1 GM VIAL (RESTRICTED TO ID) ONE (12:47)
[2020-02-15] MEDS ORDERED: DEXTROSE 5%-WATER 100 ML IVPB ONE (12:47)
[2020-02-15] MEDS: CEFEPIME 1 GM in DEXTROSE 5%-WATER 100 ML IVPB SCH (15:47)
--- NOTE | 2020-02-15 19:43 | PN ---
Progress Note, Physician Chief Complaint: Pt unresponsive History of Present Illness: Ms. Galeas is a 74 year old black female with a significant past medical history of ESRD, hypertension, DMII, GERD, HTN, and HL, who presents to the ED, BIBA, and unresponsive x2 days. ESRD (on HD), hypertension, DMII, GERD, HTN, HL, aphasia and stroke [address] showed (01/13) right parietal, occipital and temporal lobe suggestive of acute CVA; no acute intracranial bleed ; Prolonged ICU course complicated by Acute worsening of chronic anemia, likely from stomal bleed. Elevated TNIs most likely anemia- induced ischemia. - Current Medication List Current Medications: Active Medications Acetaminophen (Tylenol Oral Solution -) 650 mg PO Q6H PRN PRN Reason: PAIN LEVEL 4 - 6 Last Admin: 02/14/20 23:34 Dose: 650 mg Documented by: Amlodipine Besylate (Norvasc -) 10 mg NGT DAILY [facility] Last Admin: 02/15/20 10:08 Dose: 10 mg Documented by: Collagenase (Santyl -) 1 applic TP DAILY [facility]; Protocol Last Admin: 02/15/20 11:37 Dose: 1 applic Documented by: Guaifenesin (Robitussin -) 10 ml PO Q4H PRN PRN Reason: COUGH Cefepime HCl 1 gm/ Dextrose 100 mls @ 200 mls/hr IVPB DAILY [facility]; Protocol Last Admin: 02/15/20 15:47 Dose: 200 mls/hr Documented by: Sodium Chloride (Normal Saline -) 250 mls @ 3,000 mls/hr IV PRN PRN PRN Reason: Hypotension during Dialysis Stop: 02/15/20 15:08 Insulin Aspart (Novolog Vial Sliding Scale -) 1 vial SQ Q6HPO [facility]; Protocol Last Admin: 02/15/20 17:41 Dose: 2 units Documented by: Metoprolol Tartrate (Lopressor -) 25 mg PO BID [facility] Last Admin: 02/15/20 10:08 Dose: 25 mg Documented by: - Objective Vital Signs: Vital Signs Temperature 97 F L 02/15/20 17:00 Pulse Rate 82 02/15/20 17:05 Respiratory Rate 18 02/15/20 17:05 Blood Pressure 102/52 L 02/15/20 17:05 O2 Sat by Pulse Oximetry (%) 100 02/15/20 17:00 Labs: CBC, BMP 02/15/20 07:10 02/15/20 07:10 INR, PTT INR 1.56 (0.83-1.09) H 02/02/20 20:30 Fibrinogen 448.0 mg/dL (238-498) 02/05/20 06:00 Assessment/Plan Acute right temporoparietal infarct -- Large MCA aspiration pneumonia ESRD -HD Respiratory failure severe Anemia New elevated TNIs - most likely due to demand ischemia due to severe anemia. New LBBB 7-25-20 s/p PEG Nl EF Moderater MR moderate PHT Plan: Replete K+ and PO4+ TNi trending down EKG: NSR; LBBB keep HCT around 30% Continue Metoprolol tartrate 25 BID and amlodipine; f/u BP and HR.
--- NOTE | 2020-02-15 23:00 | PN ---
Progress Note (short form) - Note Progress Note: 74 year old female brought patient from [place] for unreponsivness for two days prior to admission. Patient has history of stroke three months ago and has been decline since than. Patient has no seizure, she has high wbc and suspected to have aspiration pneumonia. Patient has large right mca cerebral edema. patient was intubated as family cancelled DNR. Over last few days, she has peg tube placed and extubated. She do not follow command, and able to open eye and winces to pain , no new symptoms. neurologically stable, opens eye and withdraws to pain NEUROLOGICAL EXAMINATION Patient is comatose, and wince to pain, neck is supple afebrile pupils is small sluggsihly reactive gag and corneal reflex is present bp is maintained ct head showed large right mca cerebral edema with minimal hemorrhagic transformation repeat ct head done on january 28 Assessment/Plan 1. Large right mca acute stroke also old left mca stroke now she has bihemispheric stroke with minimal reponsivness, -- low grade temperature and high wbc Plan: continue supportive care and waiting to be discharge - Id following for high wbc and low grade fever prognosis is guarded. Pippa sol so much Norman Plascencia MD
[2020-02-16] MEDS: INSULIN SLIDING SCALE (NOVOLOG) 1 VIAL SQ SCH ×5 (01:00→23:15)
[2020-02-16] MEDS ORDERED: PT OWN MED DRAWER 7, Y5N ONE (06:38)
--- NOTE | 2020-02-16 09:55 | PN ---
Progress Note, Physician History of Present Illness: 74 year old female with medical history of ESRD (on HD), hypertension, DMII, GERD, HTN, HL, aphasia and stroke 3 months ago, admitted to ICU fro ED for progressive weakness and reported unresponsiveness. Head CT showed (01/13) right pareital, occipital and temporal lobe suggestive of acute CVA no acute intracranial bleed ; Prolonged ICU course complicated by Acxute worsening of chronic anemia, likely from stomal bleed. Elevated TNIs most likely anemia induced ischemia. - Current Medication List Current Medications: Active Medications Acetaminophen (Tylenol Oral Solution -) 650 mg PO Q6H PRN PRN Reason: PAIN LEVEL 4 - 6 Last Admin: 02/14/20 23:34 Dose: 650 mg Documented by: Amlodipine Besylate (Norvasc -) 10 mg NGT DAILY [facility] Last Admin: 02/15/20 10:08 Dose: 10 mg Documented by: Collagenase (Santyl -) 1 applic TP DAILY [facility]; Protocol Last Admin: 02/15/20 11:37 Dose: 1 applic Documented by: Guaifenesin (Robitussin -) 10 ml PO Q4H PRN PRN Reason: COUGH Cefepime HCl 1 gm/ Dextrose 100 mls @ 200 mls/hr IVPB DAILY [facility]; Protocol Last Admin: 02/15/20 15:47 Dose: 200 mls/hr Documented by: Sodium Chloride (Normal Saline -) 250 mls @ 3,000 mls/hr IV PRN PRN PRN Reason: Hypotension during Dialysis Stop: 02/15/20 15:08 Insulin Aspart (Novolog Vial Sliding Scale -) 1 vial SQ Q6HPO [facility]; Protocol Last Admin: 02/16/20 06:47 Dose: 4 units Documented by: Metoprolol Tartrate (Lopressor -) 25 mg PO BID [facility] Last Admin: 02/15/20 22:43 Dose: Not Given Documented by: - Objective Vital Signs: Vital Signs Temperature 98.7 F 02/16/20 05:00 Pulse Rate 107 H 02/16/20 05:00 Respiratory Rate 24 H 02/16/20 05:00 Blood Pressure 138/57 L 02/16/20 05:00 O2 Sat by Pulse Oximetry (%) 98 02/16/20 05:00 Eyes: Yes: WNL, Conjunctiva Clear, EOM Intact HENT: Yes: WNL, Atraumatic, Normocephalic Neck: Yes: WNL, Supple, Trachea Midline Cardiovascular: Yes: WNL, Regular Rate and Rhythm Respiratory: Yes: Diminished Gastrointestinal: Yes: WNL, Normal Bowel Sounds Genitourinary: Yes: WNL Musculoskeletal: Yes: WNL Extremities: Yes: WNL Edema: No Integumentary: Yes: WNL Labs: CBC, BMP 02/15/20 07:10 02/15/20 07:10 INR, PTT INR 1.56 (0.83-1.09) H 02/02/20 20:30 Fibrinogen 448.0 mg/dL (238-498) 02/05/20 06:00 Problem List - Problems (1) Altered mental status Code(s): R41.82 - ALTERED MENTAL STATUS, UNSPECIFIED (2) Anemia Code(s): D64.9 - ANEMIA, UNSPECIFIED (3) Lactic acidosis Code(s): E87.2 - ACIDOSIS (4) Pneumonia, aspiration Code(s): J69.0 - PNEUMONITIS DUE TO INHALATION OF FOOD AND VOMIT (5) Stroke Code(s): I63.9 - CEREBRAL INFARCTION, UNSPECIFIED (6) Clotted dialysis access Code(s): T82.49XA - OTH COMPLICATION OF VASCULAR DIALYSIS CATHETER, INIT ENCNTR (7) Diabetes Code(s): E11.9 - TYPE 2 DIABETES MELLITUS WITHOUT COMPLICATIONS (8) ESRD on dialysis Code(s): N18.6 - END STAGE RENAL DISEASE; Z99.2 - DEPENDENCE ON RENAL DIALYSIS (9) Hypertension Code(s): I10 - ESSENTIAL (PRIMARY) HYPERTENSION (10) SOB (shortness of breath) Code(s): R06.02 - SHORTNESS OF BREATH Assessment/Plan Acute right temporoparietal infarct -- Large MCA aspiration pneumonia ESRD -HD Respiratory failure severe Anemia New elevated TNIs - most likely due to demand ischemia due to severe anemia. New LBBB 7-25-20 s/p PEG Nl EF Moderater MR moderate PHT Plan: Replete K+ and PO4+ TNi trending down EKG: NSR; LBBB keep HCT around 30% Continue Metoprolol tartrate 25 BID and amlodipine; f/u BP and HR.
[2020-02-16] MEDS ORDERED: CEFEPIME HCL 1 GM VIAL (RESTRICTED TO ID) ONE (11:14)
[2020-02-16] MEDS ORDERED: DEXTROSE 5%-WATER 100 ML IVPB ONE (11:14)
[2020-02-16] MEDS: METOPROLOL TARTRATE 25 MG TABLET (FP) PO SCH ×2 (11:21→21:45)
[2020-02-16] MEDS: amLODIPine BESYLATE 10 MG TABLET (FP) NGT SCH (11:21)
[2020-02-16] MEDS: COLLAGENASE CLOSTRIDIUM HIST. 30 GRAMS TUBE TP SCH (11:22)
[2020-02-16] MEDS: CEFEPIME 1 GM in DEXTROSE 5%-WATER 100 ML IVPB SCH (11:22)
--- NOTE | 2020-02-16 11:23 | PROC ---
Procedure Note Procedure: Called by patients RN for IV placement after multiple unsuccessful attempts made at peripheral line placement by multiple RNs. Patient in need of IV for ____IV antibiotic . Patient prepped using typical sterile fashion. __20___ gauge peripheral IV placed into ____Left EJ . Line flushes easily with venous blood return and was irrigated with ____10____mls NS. Line secured in place. Pt. tolerated procedure well. RN aware.
--- NOTE | 2020-02-16 11:25 | PN ---
Progress Note, Physician History of Present Illness: pt seen/ examined chart is reviewed fever resolving elevated wbc Poorly responsive - Current Medication List Current Medications: Active Medications Acetaminophen (Tylenol Oral Solution -) 650 mg PO Q6H PRN PRN Reason: PAIN LEVEL 4 - 6 Last Admin: 02/14/20 23:34 Dose: 650 mg Documented by: Amlodipine Besylate (Norvasc -) 10 mg NGT DAILY [facility] Last Admin: 02/16/20 11:21 Dose: 10 mg Documented by: Collagenase (Santyl -) 1 applic TP DAILY [facility]; Protocol Last Admin: 02/16/20 11:22 Dose: 1 applic Documented by: Guaifenesin (Robitussin -) 10 ml PO Q4H PRN PRN Reason: COUGH Cefepime HCl 1 gm/ Dextrose 100 mls @ 200 mls/hr IVPB DAILY [facility]; Protocol Last Admin: 02/16/20 11:22 Dose: 200 mls/hr Documented by: Sodium Chloride (Normal Saline -) 250 mls @ 3,000 mls/hr IV PRN PRN PRN Reason: Hypotension during Dialysis Stop: 02/15/20 15:08 Insulin Aspart (Novolog Vial Sliding Scale -) 1 vial SQ Q6HPO [facility]; Protocol Last Admin: 02/16/20 06:47 Dose: 4 units Documented by: Metoprolol Tartrate (Lopressor -) 25 mg PO BID [facility] Last Admin: 02/16/20 11:21 Dose: 25 mg Documented by: - Objective Vital Signs: Vital Signs Temperature 98.7 F 02/16/20 05:00 Pulse Rate 107 H 02/16/20 05:00 Respiratory Rate 24 H 02/16/20 05:00 Blood Pressure 138/57 L 02/16/20 05:00 O2 Sat by Pulse Oximetry (%) 98 02/16/20 05:00 Neck: Yes: Supple Cardiovascular: Yes: Regular Rate and Rhythm Respiratory: Yes: Diminished Gastrointestinal: Yes: Soft Edema: No Labs: CBC, BMP 02/15/20 07:10 02/15/20 07:10 INR, PTT INR 1.56 (0.83-1.09) H 02/02/20 20:30 Fibrinogen 448.0 mg/dL (238-498) 02/05/20 06:00 Problem List - Problems (1) Stroke Code(s): I63.9 - CEREBRAL INFARCTION, UNSPECIFIED (2) Pneumonia, aspiration Code(s): J69.0 - PNEUMONITIS DUE TO INHALATION OF FOOD AND VOMIT (3) Diabetes Code(s): E11.9 - TYPE 2 DIABETES MELLITUS WITHOUT COMPLICATIONS (4) ESRD on dialysis Code(s): N18.6 - END STAGE RENAL DISEASE; Z99.2 - DEPENDENCE ON RENAL DIALYSIS Assessment/Plan A/P fever Sepsis leukocytosis Line changed Acute right temporoparietal infarct -- Large MCA aspiration pneumonia ESRD -HD Respiratory failure Anemia s/p PEG Continue present care Overall condition poor ID---abx d/w RN also
--- NOTE | 2020-02-16 12:07 | PN ---
Progress Note (short form) - Note Progress Note: RENAL she is poorly responsive Last Vital Signs Temp Pulse Resp BP Pulse Ox 98.9 F 100 H 17 135/62 97 02/16/20 09:00 02/16/20 09:00 02/16/20 09:00 02/16/20 09:00 02/16/20 09:00 lungs clear cvs s1s2 rr +DAVE abd soft ext upper ext edema neuro occasionally opens eyes, otherwise no response Current Medications Generic Name Dose Route Start Last Admin Trade Name Freq PRN Reason Stop Dose Admin Acetaminophen 650 mg 02/09/20 09:27 02/14/20 23:34 Tylenol Oral Solution - PO 650 mg Q6H PRN Administration PAIN LEVEL 4 - 6 Amlodipine Besylate 10 mg 02/09/20 10:00 02/16/20 11:21 Norvasc - NGT 10 mg DAILY [facility] Administration Collagenase 1 applic 02/09/20 10:00 02/16/20 11:22 Santyl - TP 1 applic DAILY [facility] Administration Protocol Guaifenesin 10 ml 02/09/20 09:27 Robitussin - PO Q4H PRN COUGH Cefepime HCl 1 gm/ Dextrose 100 mls @ 200 mls/hr 02/14/20 11:45 02/16/20 11:22 IVPB 200 mls/hr DAILY [facility] Administration Protocol Insulin Aspart 1 vial 02/09/20 12:00 02/16/20 06:47 Novolog Vial Sliding Scale - SQ 4 units Q6HPO [facility] Administration Protocol Metoprolol Tartrate 25 mg 02/09/20 10:00 02/16/20 11:21 Lopressor - PO 25 mg BID [facility] Administration CBC, BMP 02/15/20 07:10 02/15/20 07:10 IMPRESSION esrd htn s/p cva x 2- hypokalemia covid 19 neg hypernatremia resolved leukocytosis proteus bacetermia PLAN continue current management will dialyze again tomorrow abx per id trend cbc may need to change permcath MV
--- NOTE | 2020-02-16 13:16 | PN ---
Progress Note, Physician Chief Complaint: TEMPS DOWN WBC MARKEDLY ELEVATED NOT VERBALLY RESPONSIVE BREATHING NON-LABORED BC PROTEUS SP. - Current Medication List Current Medications: Active Medications Acetaminophen (Tylenol Oral Solution -) 650 mg PO Q6H PRN PRN Reason: PAIN LEVEL 4 - 6 Last Admin: 02/14/20 23:34 Dose: 650 mg Documented by: Amlodipine Besylate (Norvasc -) 10 mg NGT DAILY [facility] Last Admin: 02/16/20 11:21 Dose: 10 mg Documented by: Collagenase (Santyl -) 1 applic TP DAILY [facility]; Protocol Last Admin: 02/16/20 11:22 Dose: 1 applic Documented by: Epoetin Rupert-epbx (Retacrit) 3,000 unit SQ ONCE ONE Stop: 02/16/20 12:13 Guaifenesin (Robitussin -) 10 ml PO Q4H PRN PRN Reason: COUGH Cefepime HCl 1 gm/ Dextrose 100 mls @ 200 mls/hr IVPB DAILY [facility]; Protocol Last Admin: 02/16/20 11:22 Dose: 200 mls/hr Documented by: Sodium Chloride (Normal Saline -) 250 mls @ 3,000 mls/hr IV PRN PRN PRN Reason: Hypotension during Dialysis Stop: 02/17/20 12:12 Insulin Aspart (Novolog Vial Sliding Scale -) 1 vial SQ Q6HPO [facility]; Protocol Last Admin: 02/16/20 06:47 Dose: 4 units Documented by: Metoprolol Tartrate (Lopressor -) 25 mg PO BID [facility] Last Admin: 02/16/20 11:21 Dose: 25 mg Documented by: - Objective Vital Signs: Vital Signs Temperature 98.9 F 02/16/20 09:00 Pulse Rate 100 H 02/16/20 09:00 Respiratory Rate 17 02/16/20 09:00 Blood Pressure 135/62 02/16/20 09:00 O2 Sat by Pulse Oximetry (%) 97 02/16/20 09:00 Constitutional: Yes: No Distress Cardiovascular: Yes: Regular Rate and Rhythm, S1, S2 Respiratory: Yes: Diminished Gastrointestinal: Yes: Normal Bowel Sounds, Soft. No: Tenderness Integumentary: Yes: Other (+ SACRAL DECUBITUS) Labs: CBC, BMP 02/15/20 07:10 02/15/20 07:10 INR, PTT INR 1.56 (0.83-1.09) H 02/02/20 20:30 Fibrinogen 448.0 mg/dL (238-498) 02/05/20 06:00 Assessment/Plan GRAM NEGATIVE BACTEREMIA SEVERAL POTENTIAL SOURCES CATHETER, LUNG, DECUBITUS, S/P ACUTE CVA S/P RESP FAILURE/ EXTUBATION S/P RLL PNEUMONIA ESRD LEUKOCYTOSIS OBS WILL SWITCH TO CEFTRIAXONE ATTEMPT TO OBTAIN URINE C/S IF CONTINUED LEUKOCYTOSIS WOULD REPEAT CT ABDOMEN/PELVIS
--- NOTE | 2020-02-16 13:39 | PN ---
Progress Note, Physician History of Present Illness: PULMONARY NO CHANGE,UNRESPONSIVE ON NASAL O2,-RESP DISTRESS - Current Medication List Current Medications: Active Medications Acetaminophen (Tylenol Oral Solution -) 650 mg PO Q6H PRN PRN Reason: PAIN LEVEL 4 - 6 Last Admin: 02/14/20 23:34 Dose: 650 mg Documented by: Amlodipine Besylate (Norvasc -) 10 mg NGT DAILY [facility] Last Admin: 02/16/20 11:21 Dose: 10 mg Documented by: Collagenase (Santyl -) 1 applic TP DAILY [facility]; Protocol Last Admin: 02/16/20 11:22 Dose: 1 applic Documented by: Epoetin Rupert-epbx (Retacrit) 3,000 unit SQ ONCE ONE Stop: 02/16/20 12:13 Guaifenesin (Robitussin -) 10 ml PO Q4H PRN PRN Reason: COUGH Sodium Chloride (Normal Saline -) 250 mls @ 3,000 mls/hr IV PRN PRN PRN Reason: Hypotension during Dialysis Stop: 02/17/20 12:12 Ceftriaxone Sodium 1 gm/ (Dextrose) 50 mls @ 100 mls/hr IVPB DAILY [facility]; Prot ocol Insulin Aspart (Novolog Vial Sliding Scale -) 1 vial SQ Q6HPO [facility]; Protocol Last Admin: 02/16/20 06:47 Dose: 4 units Documented by: Metoprolol Tartrate (Lopressor -) 25 mg PO BID [facility] Last Admin: 02/16/20 11:21 Dose: 25 mg Documented by: - Objective Vital Signs: Vital Signs Temperature 98.9 F 02/16/20 09:00 Pulse Rate 100 H 02/16/20 09:00 Respiratory Rate 17 02/16/20 09:00 Blood Pressure 135/62 02/16/20 09:00 O2 Sat by Pulse Oximetry (%) 97 02/16/20 09:00 Constitutional: Yes: Calm, Other (UNRESPONSIVE) Eyes: Yes: WNL HENT: Yes: WNL Neck: Yes: WNL Cardiovascular: Yes: Regular Rate and Rhythm, S1, S2 Respiratory: Yes: Diminished Gastrointestinal: Yes: Normal Bowel Sounds, Soft Extremities: Yes: WNL Edema: No Labs: CBC, BMP Problem List - Problems (1) Altered mental status Code(s): R41.82 - ALTERED MENTAL STATUS, UNSPECIFIED (2) Pneumonia, aspiration Code(s): J69.0 - PNEUMONITIS DUE TO INHALATION OF FOOD AND VOMIT (3) Stroke Code(s): I63.9 - CEREBRAL INFARCTION, UNSPECIFIED (4) Hypertension Code(s): I10 - ESSENTIAL (PRIMARY) HYPERTENSION (5) ESRD on dialysis Code(s): N18.6 - END STAGE RENAL DISEASE; Z99.2 - DEPENDENCE ON RENAL DIALYSIS Assessment/Plan ASSESSMENT AND PLAN: Acute Hypoxic Respiratory Failure Acute CVA Pneumonia likely Aspiration Acute Blood Loss Anemia ESRD on HD HTN DM Hyperlipidemia h/o CVA - completed antibiotics - monitor urine output, creatinine - O2 to keep SpO2 >90% - HD per renal - aspiration precautions - enteral feeds - DVT prophylaxis DR RAMIREZ
[2020-02-16] MEDS: ACETAMINOPHEN 650 MG/20.3 ML ORAL SOLUTION (CUPS) PO PRN (21:45)
[2020-02-17] MEDS: INSULIN SLIDING SCALE (NOVOLOG) 1 VIAL SQ SCH ×3 (05:03→16:59)
[2020-02-17] MEDS ORDERED: SODIUM CHLORIDE 250 ML IV PRN (08:30)
[2020-02-17] MEDS ORDERED: EPOETIN ALFA-EPBX 3,000 UNIT/ML VIAL SQ ONE (08:30)
[2020-02-17 09:27] LABS: HEMATOCRIT 23.3 % (32.4-45.2); HEMOGLOBIN 7.4 GM/dL (10.7-15.3); MCH 29.9 pg (25.7-33.7); MCHC 31.6 g/dl (32.0-36.0); MEAN CELL VOLUME 94.7 fl (80-96); MEAN PLT VOLUME 9.5 fl (7.5-11.1); PLATELET COUNT 663 K/MM3 (134-434); RBC 2.47 M/mm3 (3.60-5.2); RDW 17.2 % (11.6-15.6); WHITE BLOOD COUNT 26.3 K/mm3 (4.0-10.0)
[2020-02-17 09:54] LABS: ALBUMIN 1.4 g/dl (3.4-5.0); BILIRUBIN,TOTAL 0.7 mg/dL (0.2-1); BLOOD UREA NITROGEN 43.3 mg/dL (7-18); CALCIUM 8.8 mg/dL (8.5-10.1); CREATININE 2.7 mg/dL (0.55-1.3); POTASSIUM 3.8 mmol/L (3.5-5.1); TOT PROT 5.8 g/dl (6.4-8.2)
[2020-02-17] MEDS ORDERED: DEXTROSE 5%-WATER - 50 ML IVPB ONE (10:31)
[2020-02-17] MEDS ORDERED: cefTRIAXone SODIUM 1 GM VIAL ONE (10:31)
[2020-02-17] MEDS: METOPROLOL TARTRATE 25 MG TABLET (FP) PO SCH ×2 (10:34→21:52)
[2020-02-17] MEDS: COLLAGENASE CLOSTRIDIUM HIST. 30 GRAMS TUBE TP SCH (10:35)
[2020-02-17] MEDS: amLODIPine BESYLATE 10 MG TABLET (FP) NGT SCH (10:35)
[2020-02-17] MEDS: CEFTRIAXONE 1 GM in DEXTROSE 5%-WATER - 50 ML IVPB SCH (10:35)
[2020-02-17] MEDS ORDERED: PT OWN MED DRAWER 7, Y5N ONE (11:32)
--- NOTE | 2020-02-17 12:22 | PN ---
Progress Note, Physician History of Present Illness: pt seen/ examined fever resolving elevated wbc Poorly responsive Breathing not laboured - Current Medication List Current Medications: Active Medications Acetaminophen (Tylenol Oral Solution -) 650 mg PO Q6H PRN PRN Reason: PAIN LEVEL 4 - 6 Last Admin: 02/16/20 21:45 Dose: 650 mg Documented by: Amlodipine Besylate (Norvasc -) 10 mg NGT DAILY [facility] Last Admin: 02/17/20 10:35 Dose: Not Given Documented by: Collagenase (Santyl -) 1 applic TP DAILY [facility]; Protocol Last Admin: 02/17/20 10:35 Dose: 1 applic Documented by: Guaifenesin (Robitussin -) 10 ml PO Q4H PRN PRN Reason: COUGH Ceftriaxone Sodium 1 gm/ (Dextrose) 50 mls @ 100 mls/hr IVPB DAILY [facility]; Protocol Last Admin: 02/17/20 10:35 Dose: 100 mls/hr Documented by: Insulin Aspart (Novolog Vial Sliding Scale -) 1 vial SQ Q6HPO [facility]; Protocol Last Admin: 02/17/20 11:31 Dose: Not Given Documented by: Metoprolol Tartrate (Lopressor -) 25 mg PO BID [facility] Last Admin: 02/17/20 10:34 Dose: Not Given Documented by: - Objective Vital Signs: Vital Signs Temperature 97.6 F 02/17/20 10:00 Pulse Rate 96 H 02/17/20 10:00 Respiratory Rate 02/17/20 10:00 Blood Pressure 93/50 L 02/17/20 10:00 O2 Sat by Pulse Oximetry (%) 98 02/17/20 10:00 Neck: Yes: Supple Cardiovascular: Yes: Regular Rate and Rhythm Respiratory: Yes: Diminished Gastrointestinal: Yes: Soft Edema: No Labs: CBC, BMP 02/17/20 07:00 02/17/20 07:00 INR, PTT INR 1.56 (0.83-1.09) H 02/02/20 20:30 Fibrinogen 448.0 mg/dL (238-498) 02/05/20 06:00 Problem List - Problems (1) Stroke Code(s): I63.9 - CEREBRAL INFARCTION, UNSPECIFIED (2) Pneumonia, aspiration Code(s): J69.0 - PNEUMONITIS DUE TO INHALATION OF FOOD AND VOMIT (3) Diabetes Code(s): E11.9 - TYPE 2 DIABETES MELLITUS WITHOUT COMPLICATIONS (4) ESRD on dialysis Code(s): N18.6 - END STAGE RENAL DISEASE; Z99.2 - DEPENDENCE ON RENAL DIALYSIS Assessment/Plan A/P fever-- resolving Sepsis leukocytosis Acute right temporoparietal infarct -- Large MCA aspiration pneumonia ESRD -HD Respiratory failure Anemia s/p PEG Continue present care Overall condition poor ID---abx ct scan -- abd - pending will follow d/w rn also
--- NOTE | 2020-02-17 14:39 | PN ---
Progress Note (short form) - Note Progress Note: Remains lethargic. NAD on NC O2. No acute events overnight. S/P HD. Intake & Output 02/14/20 02/15/20 02/16/20 02/17/20 23:59 23:59 23:59 23:59 Intake Total 0 1068 1060 588 Output Total 1 6796 1000 4314 Balance -1 -8803 06 -0188 Weight 98 lb 5 oz 103 lb 4 oz Last Vital Signs Temp Pulse Resp BP Pulse Ox 97.8 F 103 H 20 116/52 L 94 L 02/17/20 14:00 02/17/20 14:00 02/17/20 14:00 02/17/20 14:00 02/17/20 14:00 Active Medications Acetaminophen (Tylenol Oral Solution -) 650 mg PO Q6H PRN PRN Reason: PAIN LEVEL 4 - 6 Last Admin: 02/16/20 21:45 Dose: 650 mg Documented by: Amlodipine Besylate (Norvasc -) 10 mg NGT DAILY [facility] Last Admin: 02/17/20 10:35 Dose: Not Given Documented by: Collagenase (Santyl -) 1 applic TP DAILY [facility]; Protocol Last Admin: 02/17/20 10:35 Dose: 1 applic Documented by: Guaifenesin (Robitussin -) 10 ml PO Q4H PRN PRN Reason: COUGH Ceftriaxone Sodium 1 gm/ (Dextrose) 50 mls @ 100 mls/hr IVPB DAILY [facility]; Pro tocol Last Admin: 02/17/20 10:35 Dose: 100 mls/hr Documented by: Insulin Aspart (Novolog Vial Sliding Scale -) 1 vial SQ Q6HPO [facility]; Protocol Last Admin: 02/17/20 11:31 Dose: Not Given Documented by: Metoprolol Tartrate (Lopressor -) 25 mg PO BID [facility] Last Admin: 02/17/20 10:34 Dose: Not Given Documented by: Constitutional: Yes: Lethargic, NAD HENT: Yes: WNL Neck: Yes: WNL Cardiovascular: Yes: Regular Rate and Rhythm, S1, S2 Respiratory: Yes: Diminished Gastrointestinal: Yes: Normal Bowel Sounds, Soft Extremities: Yes: WNL Edema: No Labs: Laboratory Results - last 24 hr 02/16/20 02/16/20 02/17/20 17:14 23:10 05:02 WBC RBC Hgb Hct MCV MCH MCHC RDW Plt Count MPV Sodium Potassium Chloride Carbon Dioxide Anion Gap BUN Creatinine Est GFR (CKD-EPI)AfAm Est GFR (CKD-EPI)NonAf POC Glucometer 281 320 157 Random Glucose Calcium Total Bilirubin AST ALT Alkaline Phosphatase Total Protein Albumin 02/17/20 02/17/20 02/17/20 07:00 07:00 08:22 WBC 26.3 H RBC 2.47 L Hgb 7.4 L Hct 23.3 L MCV 94.7 MCH 29.9 MCHC 31.6 L RDW 17.2 H Plt Count 663 H MPV 9.5 Sodium 145 Potassium 3.8 Chloride 106 Carbon Dioxide 29 Anion Gap 10 BUN 43.3 H Creatinine 2.7 H Est GFR (CKD-EPI)AfAm 19.07 Est GFR (CKD-EPI)NonAf 16.46 POC Glucometer 140 Random Glucose 172 H Calcium 8.8 Total Bilirubin 0.7 AST 21 ALT 11 L Alkaline Phosphatase 228 H Total Protein 5.8 L Albumin 1.4 L 02/17/20 11:30 WBC RBC Hgb Hct MCV MCH MCHC RDW Plt Count MPV Sodium Potassium Chloride Carbon Dioxide Anion Gap BUN Creatinine Est GFR (CKD-EPI)AfAm Est GFR (CKD-EPI)NonAf POC Glucometer 89 Random Glucose Calcium Total Bilirubin AST ALT Alkaline Phosphatase Total Protein Albumin Problem List - Problems (1) Altered mental status Code(s): R41.82 - ALTERED MENTAL STATUS, UNSPECIFIED (2) Pneumonia, aspiration Code(s): J69.0 - PNEUMONITIS DUE TO INHALATION OF FOOD AND VOMIT (3) Stroke Code(s): I63.9 - CEREBRAL INFARCTION, UNSPECIFIED (4) Hypertension Code(s): I10 - ESSENTIAL (PRIMARY) HYPERTENSION (5) ESRD on dialysis Code(s): N18.6 - END STAGE RENAL DISEASE; Z99.2 - DEPENDENCE ON RENAL DIALYSIS Assessment/Plan Acute CVA Pneumonia likely Aspiration ESRD on HD HTN DM Hyperlipidemia h/o CVA - HD per Renal - aspiration precautions - O2 to keep SpO2 >90% - VTE prophylaxis - poor overall prognosis Dr Alonzo
--- NOTE | 2020-02-17 15:25 | PN ---
Progress Note, Physician History of Present Illness: Pt seen and examined at bedside. No great change in status. - Current Medication List Current Medications: Active Medications Acetaminophen (Tylenol Oral Solution -) 650 mg PO Q6H PRN PRN Reason: PAIN LEVEL 4 - 6 Last Admin: 02/16/20 21:45 Dose: 650 mg Documented by: Amlodipine Besylate (Norvasc -) 10 mg NGT DAILY [facility] Last Admin: 02/17/20 10:35 Dose: Not Given Documented by: Collagenase (Santyl -) 1 applic TP DAILY [facility]; Protocol Last Admin: 02/17/20 10:35 Dose: 1 applic Documented by: Guaifenesin (Robitussin -) 10 ml PO Q4H PRN PRN Reason: COUGH Ceftriaxone Sodium 1 gm/ (Dextrose) 50 mls @ 100 mls/hr IVPB DAILY [facility]; Protoco l Last Admin: 02/17/20 10:35 Dose: 100 mls/hr Documented by: Insulin Aspart (Novolog Vial Sliding Scale -) 1 vial SQ Q6HPO [facility]; Protocol Last Admin: 02/17/20 11:31 Dose: Not Given Documented by: Metoprolol Tartrate (Lopressor -) 25 mg PO BID [facility] Last Admin: 02/17/20 10:34 Dose: Not Given Documented by: - Objective Vital Signs: Vital Signs Temperature 97.8 F 02/17/20 14:00 Pulse Rate 103 H 02/17/20 14:00 Respiratory Rate 20 02/17/20 14:00 Blood Pressure 116/52 L 02/17/20 14:00 O2 Sat by Pulse Oximetry (%) 94 L 02/17/20 14:00 Constitutional: Yes: Calm Eyes: Yes: Conjunctiva Clear HENT: Yes: Atraumatic Neck: Yes: Supple Cardiovascular: Yes: S1, S2 Respiratory: Yes: CTA Bilaterally Gastrointestinal: Yes: Soft Genitourinary: Yes: Incontinence Musculoskeletal: Yes: Muscle Weakness Edema: Yes Edema: LLE: Trace, RLE: Trace Neurological: Yes: Lethargy Labs: CBC, BMP 02/17/20 07:00 02/17/20 07:00 INR, PTT INR 1.56 (0.83-1.09) H 02/02/20 20:30 Fibrinogen 448.0 mg/dL (238-498) 02/05/20 06:00 Problem List - Problems (1) ESRD on dialysis Code(s): N18.6 - END STAGE RENAL DISEASE; Z99.2 - DEPENDENCE ON RENAL DIALYSIS Assessment/Plan Current Medications Generic Name Dose Route Start Last Admin Trade Name Freq PRN Reason Stop Dose Admin Acetaminophen 650 mg 02/09/20 09:27 02/16/20 21:45 Tylenol Oral Solution - PO 650 mg Q6H PRN Administration PAIN LEVEL 4 - 6 Amlodipine Besylate 10 mg 02/09/20 10:00 02/17/20 10:35 Norvasc - NGT Not Given DAILY [facility] Collagenase 1 applic 02/09/20 10:00 02/17/20 10:35 Santyl - TP 1 applic DAILY [facility] Administration Protocol Guaifenesin 10 ml 02/09/20 09:27 Robitussin - PO Q4H PRN COUGH Ceftriaxone Sodium 1 gm/ 50 mls @ 100 mls/hr 02/17/20 10:00 02/17/20 10:35 Dextrose IVPB 100 mls/hr DAILY [facility] Administration Protocol Insulin Aspart 1 vial 02/09/20 12:00 02/17/20 11:31 Novolog Vial Sliding Scale - SQ Not Given Q6HPO [facility] Protocol Metoprolol Tartrate 25 mg 02/09/20 10:00 02/17/20 10:34 Lopressor - PO Not Given BID [facility] Impression 1. esrd 2. Acute right temporoparietal infarct 3. previous CVA 4. aspiration pneumonia 5. htn 6. hld 7. acute resp failure Plan - HD today - epogen for anemia - follow cultures - cont feeds - discuss GOC with family
--- NOTE | 2020-02-17 22:34 | PN ---
Progress Note (short form) - Note Progress Note: 74 year old female brought patient from [place] for unreponsivness for two days prior to admission. Patient has history of stroke three months ago and has been decline since than. Patient has no seizure, she has high wbc and suspected to have aspiration pneumonia. Patient has large right mca cerebral edema. patient was intubated as family cancelled DNR. Over last few days, she has peg tube placed and extubated. Patient wbc is coming down and clinically no major change in her condition. NEUROLOGICAL EXAMINATION Patient is comatose, and wince to pain, neck is supple afebrile pupils is small sluggsihly reactive gag and corneal reflex is present bp is maintained ct head showed large right mca cerebral edema with minimal hemorrhagic transformation repeat ct head done on january 28 Assessment/Plan 1. Large right mca acute stroke also old left mca stroke now she has bihemispheric stroke with minimal reponsivness, -- wbc is coming down Plan: continue supportive care and waiting to be discharge - Id following for high wbc and low grade fever prognosis is guarded. Pippa sol so much Norman Plascencia MD
[2020-02-18] MEDS: INSULIN SLIDING SCALE (NOVOLOG) 1 VIAL SQ SCH ×4 (00:46→17:16)
[2020-02-18] MEDS ORDERED: cefTRIAXone SODIUM 1 GM VIAL ONE (09:41)
[2020-02-18] MEDS ORDERED: DEXTROSE 5%-WATER - 50 ML IVPB ONE (09:41)
[2020-02-18] MEDS: COLLAGENASE CLOSTRIDIUM HIST. 30 GRAMS TUBE TP SCH (09:43)
[2020-02-18] MEDS: METOPROLOL TARTRATE 25 MG TABLET (FP) PO SCH ×3 (09:43→21:04)
[2020-02-18] MEDS: amLODIPine BESYLATE 10 MG TABLET (FP) NGT SCH (09:43)
[2020-02-18] MEDS: CEFTRIAXONE 1 GM in DEXTROSE 5%-WATER - 50 ML IVPB SCH (09:43)
--- NOTE | 2020-02-18 11:40 | PN ---
Progress Note, Physician History of Present Illness: Overall condition same all /fu noted low grade fever Minimally responsive to painful stimuli - Current Medication List Current Medications: Active Medications Acetaminophen (Tylenol Oral Solution -) 650 mg PO Q6H PRN PRN Reason: PAIN LEVEL 4 - 6 Last Admin: 02/16/20 21:45 Dose: 650 mg Documented by: Amlodipine Besylate (Norvasc -) 10 mg NGT DAILY [facility] Last Admin: 02/18/20 09:43 Dose: 10 mg Documented by: Collagenase (Santyl -) 1 applic TP DAILY [facility]; Protocol Last Admin: 02/18/20 09:43 Dose: 1 applic Documented by: Guaifenesin (Robitussin -) 10 ml PO Q4H PRN PRN Reason: COUGH Ceftriaxone Sodium 1 gm/ (Dextrose) 50 mls @ 100 mls/hr IVPB DAILY [facility]; Protocol Last Admin: 02/18/20 09:43 Dose: 100 mls/hr Documented by: Insulin Aspart (Novolog Vial Sliding Scale -) 1 vial SQ Q6HPO [facility]; Protocol Last Admin: 02/18/20 06:06 Dose: 2 units Documented by: Metoprolol Tartrate (Lopressor -) 25 mg PO BID [facility] Last Admin: 02/18/20 09:43 Dose: 25 mg Documented by: - Objective Vital Signs: Vital Signs Temperature 99.3 F 02/18/20 10:00 Pulse Rate 95 H 02/18/20 10:00 Respiratory Rate 16 02/18/20 10:00 Blood Pressure 130/44 L 02/18/20 10:00 O2 Sat by Pulse Oximetry (%) 100 02/18/20 10:00 Neck: Yes: Supple Cardiovascular: Yes: Regular Rate and Rhythm Respiratory: Yes: Diminished Gastrointestinal: Yes: Soft Edema: No Labs: CBC, BMP 02/17/20 07:00 02/17/20 07:00 INR, PTT INR 1.56 (0.83-1.09) H 02/02/20 20:30 Fibrinogen 448.0 mg/dL (238-498) 02/05/20 06:00 Problem List - Problems (1) Stroke Code(s): I63.9 - CEREBRAL INFARCTION, UNSPECIFIED (2) Pneumonia, aspiration Code(s): J69.0 - PNEUMONITIS DUE TO INHALATION OF FOOD AND VOMIT (3) Diabetes Code(s): E11.9 - TYPE 2 DIABETES MELLITUS WITHOUT COMPLICATIONS (4) ESRD on dialysis Code(s): N18.6 - END STAGE RENAL DISEASE; Z99.2 - DEPENDENCE ON RENAL DIALYSIS Assessment/Plan A/P Sepsis leukocytosis Acute right temporoparietal infarct -- Large MCA aspiration pneumonia ESRD -HD Respiratory failure Anemia s/p PEG Continue present care Overall condition poor Abx per i/d ct scan -- abd - report pending will follow d/w rn also
[2020-02-18] MEDS ORDERED: INSULIN (NOVOLOG) ASPART 100 UNITS/ML 10ML VIAL ONE (12:02)
[2020-02-18] MEDS: ACETAMINOPHEN 650 MG/20.3 ML ORAL SOLUTION (CUPS) PO PRN (13:35)
--- NOTE | 2020-02-18 14:07 | PN ---
Progress Note (short form) - Note Progress Note: Remains lethargic. NAD on NC O2. No acute events overnight. S/P HDn yesterday. Intake & Output 02/15/20 02/16/20 02/17/20 02/18/20 23:59 23:59 23:59 23:59 Intake Total 1068 1060 758 Output Total 6796 1000 4314 Balance -5728 60 -3556 Weight 98 lb 5 oz 103 lb 4 oz Last Vital Signs Temp Pulse Resp BP Pulse Ox 99.3 F 95 H 16 130/44 L 100 02/18/20 10:00 02/18/20 10:00 02/18/20 10:00 02/18/20 10:00 02/18/20 10:00 Active Medications Acetaminophen (Tylenol Oral Solution -) 650 mg PO Q6H PRN PRN Reason: PAIN LEVEL 4 - 6 Last Admin: 02/18/20 13:35 Dose: 650 mg Documented by: Amlodipine Besylate (Norvasc -) 10 mg NGT DAILY [facility] Last Admin: 02/18/20 09:43 Dose: 10 mg Documented by: Collagenase (Santyl -) 1 applic TP DAILY [facility]; Protocol Last Admin: 02/18/20 09:43 Dose: 1 applic Documented by: Guaifenesin (Robitussin -) 10 ml PO Q4H PRN PRN Reason: COUGH Ceftriaxone Sodium 1 gm/ (Dextrose) 50 mls @ 100 mls/hr IVPB DAILY [facility]; Protocol Last Admin: 02/18/20 09:43 Dose: 100 mls/hr Documented by: Insulin Aspart (Novolog Vial Sliding Scale -) 1 vial SQ Q6HPO [facility]; Protocol Last Admin: 02/18/20 12:06 Dose: 4 units Documented by: Metoprolol Tartrate (Lopressor -) 25 mg PO BID [facility] Last Admin: 02/18/20 09:43 Dose: 25 mg Documented by: Constitutional: Yes: Lethargic, NAD HENT: Yes: WNL Neck: Yes: WNL Cardiovascular: Yes: Regular Rate and Rhythm, S1, S2 Respiratory: Yes: Diminished Gastrointestinal: Yes: Normal Bowel Sounds, Soft Extremities: Yes: WNL Edema: No Labs: Laboratory Results - last 24 hr 02/17/20 02/18/20 02/18/20 16:24 00:39 06:05 POC Glucometer 233 247 215 02/18/20 11:58 POC Glucometer 275 Problem List - Problems (1) Altered mental status Code(s): R41.82 - ALTERED MENTAL STATUS, UNSPECIFIED (2) Pneumonia, aspiration Code(s): J69.0 - PNEUMONITIS DUE TO INHALATION OF FOOD AND VOMIT (3) Stroke Code(s): I63.9 - CEREBRAL INFARCTION, UNSPECIFIED (4) Hypertension Code(s): I10 - ESSENTIAL (PRIMARY) HYPERTENSION (5) ESRD on dialysis Code(s): N18.6 - END STAGE RENAL DISEASE; Z99.2 - DEPENDENCE ON RENAL DIALYSIS Assessment/Plan Acute CVA Pneumonia likely Aspiration ESRD on HD HTN DM Hyperlipidemia h/o CVA - HD per Renal - aspiration precautions - O2 to keep SpO2 >90% - VTE prophylaxis - poor overall prognosis Dr Alonzo
--- NOTE | 2020-02-18 14:29 | PN ---
Progress Note, Physician History of Present Illness: Pt seen and examined at bedside. She remains lethargic. - Current Medication List Current Medications: Active Medications Acetaminophen (Tylenol Oral Solution -) 650 mg PO Q6H PRN PRN Reason: PAIN LEVEL 4 - 6 Last Admin: 02/18/20 13:35 Dose: 650 mg Documented by: Amlodipine Besylate (Norvasc -) 10 mg NGT DAILY [facility] Last Admin: 02/18/20 09:43 Dose: 10 mg Documented by: Collagenase (Santyl -) 1 applic TP DAILY [facility]; Protocol Last Admin: 02/18/20 09:43 Dose: 1 applic Documented by: Guaifenesin (Robitussin -) 10 ml PO Q4H PRN PRN Reason: COUGH Ceftriaxone Sodium 1 gm/ (Dextrose) 50 mls @ 100 mls/hr IVPB DAILY [facility]; Protocol Last Admin: 02/18/20 09:43 Dose: 100 mls/hr Documented by: Insulin Aspart (Novolog Vial Sliding Scale -) 1 vial SQ Q6HPO [facility]; Protocol Last Admin: 02/18/20 12:06 Dose: 4 units Documented by: Metoprolol Tartrate (Lopressor -) 25 mg PO BID [facility] Last Admin: 02/18/20 09:43 Dose: 25 mg Documented by: - Objective Vital Signs: Vital Signs Temperature 99.3 F 02/18/20 10:00 Pulse Rate 95 H 02/18/20 10:00 Respiratory Rate 16 02/18/20 10:00 Blood Pressure 130/44 L 02/18/20 10:00 O2 Sat by Pulse Oximetry (%) 100 02/18/20 10:00 Constitutional: Yes: Calm Eyes: Yes: Conjunctiva Clear HENT: Yes: Atraumatic Neck: Yes: Supple Cardiovascular: Yes: S1, S2 Gastrointestinal: Yes: Soft Genitourinary: Yes: Incontinence Musculoskeletal: Yes: Muscle Weakness Edema: LLE: Trace, RLE: Trace Neurological: Yes: Lethargy Labs: CBC, BMP 02/17/20 07:00 02/17/20 07:00 INR, PTT INR 1.56 (0.83-1.09) H 02/02/20 20:30 Fibrinogen 448.0 mg/dL (238-498) 02/05/20 06:00 Problem List - Problems (1) ESRD on dialysis Code(s): N18.6 - END STAGE RENAL DISEASE; Z99.2 - DEPENDENCE ON RENAL DIALYSIS Assessment/Plan Current Medications Generic Name Dose Route Start Last Admin Trade Name Freq PRN Reason Stop Dose Admin Acetaminophen 650 mg 02/09/20 09:27 02/18/20 13:35 Tylenol Oral Solution - PO 650 mg Q6H PRN Administration PAIN LEVEL 4 - 6 Amlodipine Besylate 10 mg 02/09/20 10:00 02/18/20 09:43 Norvasc - NGT 10 mg DAILY [facility] Administration Collagenase 1 applic 02/09/20 10:00 02/18/20 09:43 Santyl - TP 1 applic DAILY [facility] Administration Protocol Guaifenesin 10 ml 02/09/20 09:27 Robitussin - PO Q4H PRN COUGH Ceftriaxone Sodium 1 gm/ 50 mls @ 100 mls/hr 02/17/20 10:00 02/18/20 09:43 Dextrose IVPB 100 mls/hr DAILY [facility] Administration Protocol Insulin Aspart 1 vial 02/09/20 12:00 02/18/20 12:06 Novolog Vial Sliding Scale - SQ 4 units Q6HPO [facility] Administration Protocol Metoprolol Tartrate 25 mg 02/09/20 10:00 02/18/20 09:43 Lopressor - PO 25 mg BID [facility] Administration Impression 1. esrd 2. Acute right temporoparietal infarct 3. previous CVA 4. aspiration pneumonia 5. htn 6. hld 7. acute resp failure Plan - pt tolerated HD yesterday - next HD on Wednesday - epogen for anemia - cont feeds - discuss GOC with family
[2020-02-19] MEDS: INSULIN SLIDING SCALE (NOVOLOG) 1 VIAL SQ SCH ×4 (01:30→17:52)
[2020-02-19] MEDS: ACETAMINOPHEN 650 MG/20.3 ML ORAL SOLUTION (CUPS) PO PRN (02:14)
[2020-02-19 08:18] LABS: BASO % 0.5 % (0-2.0); EOS % 1.6 % (0-4.5); HEMATOCRIT 24.9 % (32.4-45.2); HEMOGLOBIN 7.8 GM/dL (10.7-15.3); LYMPH % 6.1 % (8-40); MCH 29.7 pg (25.7-33.7); MCHC 31.3 g/dl (32.0-36.0); MEAN CELL VOLUME 94.8 fl (80-96); MEAN PLT VOLUME 9.5 fl (7.5-11.1); MONO % 5.1 % (3.8-10.2); NEUT % 86.7 % (42.8-82.8); PLATELET COUNT 765 K/MM3 (134-434); RBC 2.63 M/mm3 (3.60-5.2); RDW 16.7 % (11.6-15.6); WHITE BLOOD COUNT 27.5 K/mm3 (4.0-10.0)
[2020-02-19 08:45] LABS: ALBUMIN 1.3 g/dl (3.4-5.0); BILIRUBIN,TOTAL 0.4 mg/dL (0.2-1); BLOOD UREA NITROGEN 46.2 mg/dL (7-18); CALCIUM 9.1 mg/dL (8.5-10.1); CREATININE 2.8 mg/dL (0.55-1.3); POTASSIUM 3.9 mmol/L (3.5-5.1); TOT PROT 5.9 g/dl (6.4-8.2)
--- NOTE | 2020-02-19 10:00 | PN ---
Progress Note, Physician History of Present Illness: Overall condition same all f/u noted low grade fever Minimally responsive to painful stimuli Persistent leukocytosis ct abd - noted - Current Medication List Current Medications: Active Medications Acetaminophen (Tylenol Oral Solution -) 650 mg PO Q6H PRN PRN Reason: PAIN LEVEL 4 - 6 Last Admin: 02/19/20 02:14 Dose: 650 mg Documented by: Amlodipine Besylate (Norvasc -) 10 mg NGT DAILY [facility] Last Admin: 02/18/20 09:43 Dose: 10 mg Documented by: Collagenase (Santyl -) 1 applic TP DAILY [facility]; Protocol Last Admin: 02/18/20 09:43 Dose: 1 applic Documented by: Guaifenesin (Robitussin -) 10 ml PO Q4H PRN PRN Reason: COUGH Ceftriaxone Sodium 1 gm/ (Dextrose) 50 mls @ 100 mls/hr IVPB DAILY [facility]; Protocol Last Admin: 02/18/20 09:43 Dose: 100 mls/hr Documented by: Insulin Aspart (Novolog Vial Sliding Scale -) 1 vial SQ Q6HPO [facility]; Protocol Last Admin: 02/19/20 06:13 Dose: Not Given Documented by: Metoprolol Tartrate (Lopressor -) 25 mg PO BID [facility] Last Admin: 02/18/20 21:04 Dose: Not Given Documented by: - Objective Vital Signs: Vital Signs Temperature 99.1 F 02/19/20 05:30 Pulse Rate 100 H 02/19/20 05:30 Respiratory Rate 18 02/19/20 05:30 Blood Pressure 103/51 L 02/19/20 05:30 O2 Sat by Pulse Oximetry (%) 100 02/19/20 05:30 Neck: Yes: Supple Cardiovascular: Yes: Regular Rate and Rhythm Respiratory: Yes: Diminished Gastrointestinal: Yes: Soft Edema: No Labs: CBC, BMP 02/19/20 07:33 02/19/20 07:33 INR, PTT INR 1.56 (0.83-1.09) H 02/02/20 20:30 Fibrinogen 448.0 mg/dL (238-498) 02/05/20 06:00 Problem List - Problems (1) Stroke Code(s): I63.9 - CEREBRAL INFARCTION, UNSPECIFIED (2) Pneumonia, aspiration Code(s): J69.0 - PNEUMONITIS DUE TO INHALATION OF FOOD AND VOMIT (3) Diabetes Code(s): E11.9 - TYPE 2 DIABETES MELLITUS WITHOUT COMPLICATIONS (4) ESRD on dialysis Code(s): N18.6 - END STAGE RENAL DISEASE; Z99.2 - DEPENDENCE ON RENAL DIALYSIS Assessment/Plan A/P Sepsis leukocytosis Acute right temporoparietal infarct -- Large MCA aspiration pneumonia ESRD -HD Respiratory failure Anemia s/p PEG cholecystitis ? Continue present care Overall condition poor Abx per i/d u/s abdomen will follow d/w rn also
[2020-02-19] MEDS ORDERED: DEXTROSE 5%-WATER - 50 ML IVPB ONE (10:23)
[2020-02-19] MEDS ORDERED: cefTRIAXone SODIUM 1 GM VIAL ONE (10:23)
[2020-02-19] MEDS: COLLAGENASE CLOSTRIDIUM HIST. 30 GRAMS TUBE TP SCH (10:29)
[2020-02-19] MEDS: CEFTRIAXONE 1 GM in DEXTROSE 5%-WATER - 50 ML IVPB SCH (10:29)
[2020-02-19] MEDS: amLODIPine BESYLATE 10 MG TABLET (FP) NGT SCH (10:29)
[2020-02-19] MEDS: METOPROLOL TARTRATE 25 MG TABLET (FP) PO SCH (10:29)
[2020-02-19 11:32] LABS: PLATELET ESTIMATE INCREASED
--- NOTE | 2020-02-19 11:54 | PN ---
Progress Note (short form) - Note Progress Note: RENAL she is poorly responsive Last Vital Signs Temp Pulse Resp BP Pulse Ox 98.0 F 100 H 18 128/60 100 02/19/20 10:17 02/19/20 10:17 02/19/20 10:17 02/19/20 10:17 02/19/20 10:17 lungs clear cvs s1s2 rr +DAVE abd soft ext upper ext edema neuro occasionally opens eyes, otherwise no response CBC, BMP 02/19/20 07:33 02/19/20 07:33 Current Medications Generic Name Dose Route Start Last Admin Trade Name Freq PRN Reason Stop Dose Admin Acetaminophen 650 mg 02/09/20 09:27 02/19/20 02:14 Tylenol Oral Solution - PO 650 mg Q6H PRN Administration PAIN LEVEL 4 - 6 Amlodipine Besylate 10 mg 02/09/20 10:00 02/19/20 10:29 Norvasc - NGT 10 mg DAILY JOSE Administration Collagenase 1 applic 02/09/20 10:00 02/19/20 10:29 Santyl - TP 1 applic DAILY JOSE Administration Protocol Guaifenesin 10 ml 02/09/20 09:27 Robitussin - PO Q4H PRN COUGH Ceftriaxone Sodium 1 gm/ 50 mls @ 100 mls/hr 02/17/20 10:00 02/19/20 10:29 Dextrose IVPB 100 mls/hr DAILY JOSE Administration Protocol Insulin Aspart 1 vial 02/09/20 12:00 02/19/20 06:13 Novolog Vial Sliding Scale - SQ Not Given Q6HPO JOSE Protocol Metoprolol Tartrate 25 mg 02/09/20 10:00 02/19/20 10:29 Lopressor - PO 25 mg BID JOSE Administration IMPRESSION esrd htn s/p cva x 2- hypokalemia covid 19 neg hypernatremia resolved leukocytosis proteus bacetermia PLAN continue current management will dialyze again tomorrow abx per id trend cbc may need to change permcath MV
[2020-02-19] MEDS ORDERED: INSULIN (NOVOLOG) ASPART 100 UNITS/ML 10ML VIAL ONE (12:06)
--- NOTE | 2020-02-19 13:03 | PN ---
Progress Note, Physician Chief Complaint: LOW GRADE TEMP WBC SL IMPROVED NOT VERBALLY RESPONSIVE BREATHING NON-LABORED BC PROTEUS SP. REPEAT BC NO GROWTH CT A/P CHOLELITHIASIS - Current Medication List Current Medications: Active Medications Acetaminophen (Tylenol Oral Solution -) 650 mg PO Q6H PRN PRN Reason: PAIN LEVEL 4 - 6 Last Admin: 02/19/20 02:14 Dose: 650 mg Documented by: Amlodipine Besylate (Norvasc -) 10 mg NGT DAILY [facility] Last Admin: 02/19/20 10:29 Dose: 10 mg Documented by: Collagenase (Santyl -) 1 applic TP DAILY JOSE; Protocol Last Admin: 02/19/20 10:29 Dose: 1 applic Documented by: Guaifenesin (Robitussin -) 10 ml PO Q4H PRN PRN Reason: COUGH Ceftriaxone Sodium 1 gm/ (Dextrose) 50 mls @ 100 mls/hr IVPB DAILY JOSE; Protocol Last Admin: 02/19/20 10:29 Dose: 100 mls/hr Documented by: Insulin Aspart (Novolog Vial Sliding Scale -) 1 vial SQ Q6HPO JOSE; Protocol Last Admin: 02/19/20 12:09 Dose: 4 units Documented by: Metoprolol Tartrate (Lopressor -) 25 mg PO BID JOSE Last Admin: 02/19/20 10:29 Dose: 25 mg Documented by: - Objective Vital Signs: Vital Signs Temperature 98.0 F 02/19/20 10:17 Pulse Rate 100 H 02/19/20 10:17 Respiratory Rate 18 02/19/20 10:17 Blood Pressure 128/60 02/19/20 10:17 O2 Sat by Pulse Oximetry (%) 100 02/19/20 10:17 Constitutional: Yes: No Distress Eyes: Yes: Conjunctiva Clear Cardiovascular: Yes: Regular Rate and Rhythm, S1, S2 Respiratory: Yes: CTA Bilaterally, Diminished Gastrointestinal: Yes: Normal Bowel Sounds, Soft, Other (NO RUQ TENDERNESS ELICITED) Edema: Yes Labs: CBC, BMP 02/19/20 07:33 02/19/20 07:33 INR, PTT INR 1.56 (0.83-1.09) H 02/02/20 20:30 Fibrinogen 448.0 mg/dL (238-498) 02/05/20 06:00 Assessment/Plan GRAM NEGATIVE BACTEREM S/P ACUTE CVA S/P RESP FAILURE/ EXTUBATION S/P RLL PNEUMONIA ESRD LEUKOCYTOSIS OBS CONTINUE CEFTRIAXONE ATTEMPT TO OBTAIN URINE C/S NOT SUCCESSFUL
--- NOTE | 2020-02-19 15:08 | PN ---
Progress Note (short form) - Note Progress Note: PULMONARY Remains lethargic. NAD on NC O2. Nonverbal vss/afebrile Constitutional: Yes: Lethargic, NAD HENT: Yes: WNL Neck: Yes: WNL Cardiovascular: Yes: Regular Rate and Rhythm, S1, S2 Respiratory: Yes: Diminished Gastrointestinal: Yes: Normal Bowel Sounds, Soft Extremities: Yes: WNL Edema: No Labs/meds/notes/images reviewed (1) Altered mental status Code(s): R41.82 - ALTERED MENTAL STATUS, UNSPECIFIED (2) Pneumonia, aspiration Code(s): J69.0 - PNEUMONITIS DUE TO INHALATION OF FOOD AND VOMIT (3) Stroke Code(s): I63.9 - CEREBRAL INFARCTION, UNSPECIFIED (4) Hypertension Code(s): I10 - ESSENTIAL (PRIMARY) HYPERTENSION (5) ESRD on dialysis Code(s): N18.6 - END STAGE RENAL DISEASE; Z99.2 - DEPENDENCE ON RENAL DIALYSIS Acute CVA Pneumonia likely Aspiration ESRD on HD HTN DM Hyperlipidemia h/o CVA - HD per Renal - aspiration precautions - O2 to keep SpO2 >90% - VTE prophylaxis - poor overall prognosis Prieto YATES MD
--- NOTE | 2020-02-19 16:51 | PN ---
Progress Note, Physician History of Present Illness: 74 year old female with medical history of ESRD (on HD), hypertension, DMII, GERD, HTN, HL, aphasia and stroke 3 months ago, admitted to ICU fro ED for progressive weakness and reported unresponsiveness. Head CT showed (01/13) right pareital, occipital and temporal lobe suggestive of acute CVA no acute intracranial bleed ; Prolonged ICU course complicated by Acxute worsening of chronic anemia, likely from stomal bleed. Elevated TNIs most likely anemia induced ischemia. - Current Medication List Current Medications: Active Medications Acetaminophen (Tylenol Oral Solution -) 650 mg PO Q6H PRN PRN Reason: PAIN LEVEL 4 - 6 Last Admin: 02/19/20 02:14 Dose: 650 mg Documented by: Amlodipine Besylate (Norvasc -) 10 mg NGT DAILY [facility] Last Admin: 02/19/20 10:29 Dose: 10 mg Documented by: Collagenase (Santyl -) 1 applic TP DAILY [facility]; Protocol Last Admin: 02/19/20 10:29 Dose: 1 applic Documented by: Guaifenesin (Robitussin -) 10 ml PO Q4H PRN PRN Reason: COUGH Ceftriaxone Sodium 1 gm/ (Dextrose) 50 mls @ 100 mls/hr IVPB DAILY JOSE; Protocol Last Admin: 02/19/20 10:29 Dose: 100 mls/hr Documented by: Insulin Aspart (Novolog Vial Sliding Scale -) 1 vial SQ Q6HPO [facility]; Protocol Last Admin: 02/19/20 12:09 Dose: 4 units Documented by: Metoprolol Tartrate (Lopressor -) 25 mg PO BID [facility] Last Admin: 02/19/20 10:29 Dose: 25 mg Documented by: - Objective Vital Signs: Vital Signs Temperature 98.0 F 02/19/20 10:17 Pulse Rate 100 H 02/19/20 10:17 Respiratory Rate 18 02/19/20 10:17 Blood Pressure 128/60 02/19/20 10:17 O2 Sat by Pulse Oximetry (%) 100 02/19/20 10:17 Eyes: Yes: WNL, Conjunctiva Clear, EOM Intact HENT: Yes: WNL, Atraumatic, Normocephalic Neck: Yes: WNL, Supple, Trachea Midline Cardiovascular: Yes: WNL, Regular Rate and Rhythm Respiratory: Yes: WNL, Regular, CTA Bilaterally Gastrointestinal: Yes: WNL, Normal Bowel Sounds Genitourinary: Yes: WNL Musculoskeletal: Yes: WNL Extremities: Yes: WNL Edema: No Integumentary: Yes: WNL Labs: CBC, BMP 02/19/20 07:33 02/19/20 07:33 INR, PTT INR 1.56 (0.83-1.09) H 02/02/20 20:30 Fibrinogen 448.0 mg/dL (238-498) 02/05/20 06:00 Problem List - Problems (1) Altered mental status Code(s): R41.82 - ALTERED MENTAL STATUS, UNSPECIFIED (2) Anemia Code(s): D64.9 - ANEMIA, UNSPECIFIED (3) Lactic acidosis Code(s): E87.2 - ACIDOSIS (4) Pneumonia, aspiration Code(s): J69.0 - PNEUMONITIS DUE TO INHALATION OF FOOD AND VOMIT (5) Stroke Code(s): I63.9 - CEREBRAL INFARCTION, UNSPECIFIED (6) Clotted dialysis access Code(s): T82.49XA - OTH COMPLICATION OF VASCULAR DIALYSIS CATHETER, INIT ENCNTR (7) Diabetes Code(s): E11.9 - TYPE 2 DIABETES MELLITUS WITHOUT COMPLICATIONS (8) ESRD on dialysis Code(s): N18.6 - END STAGE RENAL DISEASE; Z99.2 - DEPENDENCE ON RENAL DIALYSIS (9) Hypertension Code(s): I10 - ESSENTIAL (PRIMARY) HYPERTENSION (10) SOB (shortness of breath) Code(s): R06.02 - SHORTNESS OF BREATH Assessment/Plan Acute right temporoparietal infarct -- Large MCA aspiration pneumonia ESRD -HD Respiratory failure severe Anemia New elevated TNIs - most likely due to demand ischemia due to severe anemia. New LBBB 7-25-20 s/p PEG Nl EF Moderater MR moderate PHT Plan: Replete K+ and PO4+ TNi trending down EKG: NSR; LBBB keep HCT around 30% Continue Metoprolol tartrate 25 BID and amlodipine; f/u BP and HR.
--- NOTE | 2020-02-19 17:43 | PN ---
Progress Note (short form) - Note Progress Note: 74 year old female brought patient from [place] for unreponsivness for two days prior to admission. Patient has history of stroke three months ago and has been decline since than. Patient has no seizure, she has high wbc and suspected to have aspiration pneumonia. Patient has large right mca cerebral edema. patient was intubated as family cancelled DNR. Over last few days, she has peg tube placed and extubated. WBC going up and mental status remain unchanged NEUROLOGICAL EXAMINATION Patient is comatose, and wince to pain, neck is supple afebrile pupils is small sluggsihly reactive gag and corneal reflex is present bp is maintained ct head showed large right mca cerebral edema with minimal hemorrhagic transformation repeat ct head done on january 28 Assessment/Plan 1. Large right mca acute stroke also old left mca stroke now she has bihemispheric stroke with minimal reponsivness, -- wbc is still high abx as per ID Plan: continue supportive care and placement is on hold - Id following for high wbc prognosis is guarded. Pippa sol so much Norman Plascencia MD
[2020-02-19] MEDS ORDERED: ACETAMINOPHEN 650 MG/20.3 ML ORAL SOLUTION (CUPS) GT PRN (20:56)
[2020-02-19] MEDS ORDERED: guaiFENesin 200 MG/10 ML 10 ML UNIT-DOSE CUPS GT PRN (20:56)
[2020-02-19] MEDS: METOPROLOL TARTRATE 25 MG TABLET (FP) GT SCH (23:18)
[2020-02-20] MEDS: INSULIN SLIDING SCALE (NOVOLOG) 1 VIAL SQ SCH ×4 (01:44→18:08)
[2020-02-20] MEDS ORDERED: cefTRIAXone SODIUM 1 GM VIAL ONE (10:19)
[2020-02-20] MEDS ORDERED: DEXTROSE 5%-WATER - 50 ML IVPB ONE ×3 (10:19→20:52)
[2020-02-20] MEDS: METOPROLOL TARTRATE 25 MG TABLET (FP) GT SCH (10:20)
[2020-02-20] MEDS: amLODIPine BESYLATE 10 MG TABLET (FP) NGT SCH (10:21)
[2020-02-20] MEDS ORDERED: FUROSEMIDE 40 MG/4 ML INJECTABLE VIAL IVPB ONE (10:39)
--- NOTE | 2020-02-20 10:46 | PN ---
Progress Note, Physician - Current Medication List Current Medications: Active Medications Acetaminophen (Tylenol Oral Solution -) 650 mg GT Q6H PRN PRN Reason: PAIN LEVEL 4 - 6 Amlodipine Besylate (Norvasc -) 10 mg NGT DAILY [facility] Last Admin: 02/20/20 10:21 Dose: Not Given Documented by: Collagenase (Santyl -) 1 applic TP DAILY [facility]; Protocol Last Admin: 02/19/20 10:29 Dose: 1 applic Documented by: Guaifenesin (Robitussin -) 10 ml GT Q4H PRN PRN Reason: COUGH Ceftriaxone Sodium 1 gm/ (Dextrose) 50 mls @ 100 mls/hr IVPB DAILY [facility]; Protocol Last Admin: 02/19/20 10:29 Dose: 100 mls/hr Documented by: Insulin Aspart (Novolog Vial Sliding Scale -) 1 vial SQ Q6HPO [facility]; Protocol Last Admin: 02/20/20 06:01 Dose: Not Given Documented by: Metoprolol Tartrate (Lopressor -) 25 mg GT BID [facility] Last Admin: 02/20/20 10:20 Dose: Not Given Documented by: - Objective Vital Signs: Vital Signs Temperature 98.8 F 02/20/20 10:00 Pulse Rate 108 H 02/20/20 10:00 Respiratory Rate 20 02/20/20 10:00 Blood Pressure 103/54 L 02/20/20 10:00 O2 Sat by Pulse Oximetry (%) 95 02/20/20 10:00 Labs: CBC, BMP 02/19/20 07:33 02/19/20 07:33 INR, PTT INR 1.56 (0.83-1.09) H 02/02/20 20:30 Fibrinogen 448.0 mg/dL (238-498) 02/05/20 06:00 Problem List - Problems (1) Altered mental status Code(s): R41.82 - ALTERED MENTAL STATUS, UNSPECIFIED (2) Pneumonia, aspiration Code(s): J69.0 - PNEUMONITIS DUE TO INHALATION OF FOOD AND VOMIT (3) Stroke Code(s): I63.9 - CEREBRAL INFARCTION, UNSPECIFIED (4) Hypertension Code(s): I10 - ESSENTIAL (PRIMARY) HYPERTENSION (5) ESRD on dialysis Code(s): N18.6 - END STAGE RENAL DISEASE; Z99.2 - DEPENDENCE ON RENAL DIALYSIS Assessment/Plan ASSESSMENT AND PLAN: Acute Hypoxic Respiratory Failure Acute CVA Pneumonia likely Aspiration Acute Blood Loss Anemia ESRD on HD HTN DM Hyperlipidemia h/o CVA - completed antibiotics - monitor urine output, creatinine - O2 to keep SpO2 >90% - HD per renal - aspiration precautions - enteral feeds - DVT prophylaxis DR RAMIREZ
[2020-02-20] MEDS ORDERED: MIDAZOLAM HCL 5 MG/1 ML Single Dose Vial ONE (11:12)
[2020-02-20 11:27] LABS: ARTERIAL BLD GAS O2 SATURATION 88.8 mmHg (95-98); ARTERIAL BLOOD GAS PO2 52.4 mmHg (80-100); ARTERIAL BLOOD GAS pH 7.449 (7.350-7.450)
[2020-02-20 11:28] LABS: ALLENS TEST POSITIVE
[2020-02-20] MEDS ORDERED: NOREPINEPHRINE BITARTRATE 4 MG/4 ML ML IV ONE (11:32)
--- NOTE | 2020-02-20 12:15 | PN ---
Progress Note (short form) - Note Progress Note: s/p rapid response pt is in ICU now intubated for respiratory failure may need pressors per ICU attending Vital Signs - 24 hr 02/19/20 02/19/20 02/20/20 21:00 22:00 02:00 Temperature 99.7 F H 97.8 F Pulse Rate 109 H 94 H Respiratory 18 20 20 Rate Blood Pressure 113/56 L 103/58 L O2 Sat by Pulse 93 L 93 L 97 Oximetry (%) 02/20/20 02/20/20 02/20/20 05:40 10:00 10:40 Temperature 98.7 F 98.8 F 99.0 F Pulse Rate 91 H 108 H 115 H Respiratory 20 20 22 H Rate Blood Pressure 98/50 L 103/54 L 135/57 L O2 Sat by Pulse 93 L 77 L 18 L Oximetry (%) 02/20/20 02/20/20 02/20/20 11:00 11:30 11:45 Temperature Pulse Rate 106 H 105 H Respiratory 24 H 27 H 25 H Rate Blood Pressure 99/49 L 78/52 L O2 Sat by Pulse 70 L 80 L 95 Oximetry (%) Current Medications Generic Name Dose Route Start Last Admin Trade Name Freq PRN Reason Stop Dose Admin Acetaminophen 650 mg 02/19/20 20:56 Tylenol Oral Solution - GT Q6H PRN PAIN LEVEL 4 - 6 Amlodipine Besylate 10 mg 02/09/20 10:00 02/20/20 10:21 Norvasc - NGT Not Given DAILY JOSE Collagenase 1 applic 02/09/20 10:00 02/19/20 10:29 Santyl - TP 1 applic DAILY JOSE Administration Protocol Guaifenesin 10 ml 02/19/20 20:56 Robitussin - GT Q4H PRN COUGH Ceftriaxone Sodium 1 gm/ 50 mls @ 100 mls/hr 02/17/20 10:00 02/19/20 10:29 Dextrose IVPB 100 mls/hr DAILY JOSE Administration Protocol Midazolam HCl 100 mg in 100 mls @ 1 mls/hr 02/20/20 11:30 Midazolam 100mg/100ml-0.9%Nacl IVPB TITR JOSE Protocol 1 MG/HR Insulin Aspart 1 vial 02/09/20 12:00 02/20/20 06:01 Novolog Vial Sliding Scale - SQ Not Given Q6HPO JOSE Protocol Metoprolol Tartrate 25 mg 02/19/20 22:00 02/20/20 10:20 Lopressor - GT Not Given BID [facility] Laboratory Results - last 24 hr 02/19/20 02/20/20 02/20/20 17:50 01:02 05:57 Anticoagulation Therapy Puncture Site Patient Temperature ABG pH ABG pCO2 ABG pO2 ABG HCO3 ABG O2 Sat (Measured) ABG O2 Content ABG Base Excess Sai Test Patient On Oxygen O2 Delivery Device Oxygen Flow Rate Vent Mode Vent Rate Mechanical Rate PEEP Pressure Support Vent POC Glucometer 179 278 174 02/20/20 02/20/20 02/20/20 10:31 11:00 12:01 Anticoagulation Therapy No Result Required. Puncture Site Right radial Patient Temperature No Result Required. ABG pH 7.449 ABG pCO2 36.80 ABG pO2 52.4 L ABG HCO3 24.9 ABG O2 Sat (Measured) 88.8 L ABG O2 Content No Result Required. ABG Base Excess 1.0 Sai Test Positive Patient On Oxygen Yes O2 Delivery Device Nrm Oxygen Flow Rate 100 Vent Mode No Result Required. Vent Rate No Result Required. Mechanical Rate No Result Required. PEEP No Result Required. Pressure Support Vent No Result Required. POC Glucometer 209 228 Microbiology 02/14/20 16:00 Blood Culture - Final Blood - Central Line NO GROWTH AFTER 5 DAYS INCUBATION 02/14/20 10:12 Blood Culture - Final Blood - Peripheral Venous NO GROWTH AFTER 5 DAYS INCUBATION 02/14/20 10:02 Blood Culture - Final Blood - Peripheral Venous NO GROWTH AFTER 5 DAYS INCUBATION S1 S2 RRR left side edematous Lungs decreased Abd- soft, NT, GT+ No edema intubated ,sedated ct head showed large right mca cerebral edema with minimal hemorrhagic transformation repeat ct head done on january 28 A/P acute respiratory failure fever 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 ESRD on HD aspiration pneumonia acute respiratory failure -proteus in blood sepsis -- iv antibiotics -- pt is FULL CODE -- continue with current care -- poor prognosis -- vent management per ICU -- pressor support as needed Problem List - Problems (1) Altered mental status Code(s): R41.82 - ALTERED MENTAL STATUS, UNSPECIFIED (2) Lactic acidosis Code(s): E87.2 - ACIDOSIS (3) Pneumonia, aspiration Code(s): J69.0 - PNEUMONITIS DUE TO INHALATION OF FOOD AND VOMIT (4) Stroke Code(s): I63.9 - CEREBRAL INFARCTION, UNSPECIFIED (5) ESRD on dialysis Code(s): N18.6 - END STAGE RENAL DISEASE; Z99.2 - DEPENDENCE ON RENAL DIALYSIS (6) Hypertension Code(s): I10 - ESSENTIAL (PRIMARY) HYPERTENSION
[2020-02-20] MEDS ORDERED: MIDAZOLAM HCL 5 MG/1 ML Single Dose Vial IVPUSH ONE (12:16)
[2020-02-20] MEDS ORDERED: VASOPRESSIN 40 UNITS in SODIUM CHLORIDE 98 ML IVPB SCH (12:30)
--- NOTE | 2020-02-20 12:35 | PN ---
Progress Note (short form) - Note Progress Note: RENAL she is poorly responsive had a rapid response and was intubated and now in icu Last Vital Signs Temp Pulse Resp BP Pulse Ox 99.0 F 103 H 25 H 71/49 L 95 02/20/20 10:40 02/20/20 11:45 02/20/20 11:45 02/20/20 11:45 02/20/20 11:45 lungs decreased breath sounds cvs s1s2 rr +DAVE abd soft ext upper ext edema neuro occasionally opens eyes, otherwise no response Current Medications Generic Name Dose Route Start Last Admin Trade Name Freq PRN Reason Stop Dose Admin Acetaminophen 650 mg 02/19/20 20:56 Tylenol Oral Solution - GT Q6H PRN PAIN LEVEL 4 - 6 Amlodipine Besylate 10 mg 02/09/20 10:00 02/20/20 10:21 Norvasc - NGT Not Given DAILY JO[facility] Collagenase 1 applic 02/09/20 10:00 02/19/20 10:29 Santyl - TP 1 applic DAILY JOSE Administration Protocol Guaifenesin 10 ml 02/19/20 20:56 Robitussin - GT Q4H PRN COUGH Ceftriaxone Sodium 1 gm/ 50 mls @ 100 mls/hr 02/17/20 10:00 02/19/20 10:29 Dextrose IVPB 100 mls/hr DAILY JOSE Administration Protocol Midazolam HCl 100 mg in 100 mls @ 1 mls/hr 02/20/20 11:30 Midazolam 100mg/100ml-0.9%Nacl IVPB TITR JOSE Protocol 1 MG/HR Vasopressin 40 units/ Sodium 100 mls @ 5 mls/hr 02/20/20 12:30 02/20/20 11:45 Chloride IVPB 2 units/hr ASDIR JOSE 5 mls/hr Administration Protocol 2 UNITS/HR Insulin Aspart 1 vial 02/09/20 12:00 02/20/20 06:01 Novolog Vial Sliding Scale - SQ Not Given Q6HPO JOSE Protocol Metoprolol Tartrate 25 mg 02/19/20 22:00 02/20/20 10:20 Lopressor - GT Not Given BID JOSE CBC, BMP 02/19/20 07:33 02/19/20 07:33 IMPRESSION esrd htn s/p cva x 2- hypokalemia covid 19 neg hypernatremia resolved leukocytosis proteus bacetermia PLAN abx per ID continue vent support attempt to hd for some fluid removal would ask for palliative care follow up- MV
[2020-02-20 12:36] LABS: ARTERIAL BLD GAS O2 SATURATION 91.5 mmHg (95-98); ARTERIAL BLOOD GAS BASE EXCESS -4.3 mmol/L (-2-2); ARTERIAL BLOOD GAS PO2 68.5 mmHg (80-100); ARTERIAL BLOOD GAS pH 7.285 (7.350-7.450)
[2020-02-20 12:37] LABS: ALLENS TEST POSITIVE
[2020-02-20] MEDS ORDERED: SODIUM CHLORIDE 250 ML IV PRN (12:37)
[2020-02-20 12:38] LABS: VENT MODE AC; VENT RATE 14
--- NOTE | 2020-02-20 13:14 | PN ---
Physical Exam: SUBJECTIVE: rapid response was called for patient on the med-surg floor due to patient being unresponsive and hypoxic- patients family was subsequently called and they wanted everything done- patient was subsequently brought to the ICU intubated and central line placed OBJECTIVE: Vital Signs Period Temp Pulse Resp BP Sys/Ramirez Pulse Ox Last 24 Hr 97.8 F-99.7 F 91-115 18-27 71-135/49-58 18-97 GENERAL: The patient is unresponsive to sternal rub; EYES: PEERLA; EOMI; no scleral icterus NECK: no JVD; no lymphadenopathy. LUNGS: decreased breath sounds b/l HEART: Regular rate and rhythm, S1, S2 without murmur, rub or gallop. ABDOMEN: Soft, NT ND +BS UPPER EXTREMITIES: edema b/l EXTREMITIES: 2+ pulses, warm, well-perfused, no edema. NEUROLOGICAL:unable to assess PSYCH: Normal mood, normal affect. SKIN: Warm, dry, normal turgor, no rashes or lesions noted Laboratory Results - last 24 hr 02/19/20 02/20/20 02/20/20 17:50 01:02 05:57 Anticoagulation Therapy Puncture Site Patient Temperature ABG pH ABG pCO2 ABG pO2 ABG HCO3 ABG O2 Sat (Measured) ABG O2 Content ABG Base Excess Sai Test Patient On Oxygen O2 Delivery Device Oxygen Flow Rate Vent Mode Vent Rate Mechanical Rate PEEP Pressure Support Vent POC Glucometer 179 278 174 02/20/20 02/20/20 02/20/20 10:31 11:00 12:01 Anticoagulation Therapy No Result Required. Puncture Site Right radial Patient Temperature No Result Required. ABG pH 7.449 ABG pCO2 36.80 ABG pO2 52.4 L ABG HCO3 24.9 ABG O2 Sat (Measured) 88.8 L ABG O2 Content No Result Required. ABG Base Excess 1.0 Sai Test Positive Patient On Oxygen Yes O2 Delivery Device Nrm Oxygen Flow Rate 100 Vent Mode No Result Required. Vent Rate No Result Required. Mechanical Rate No Result Required. PEEP No Result Required. Pressure Support Vent No Result Required. POC Glucometer 209 228 02/20/20 12:10 Anticoagulation Therapy No Result Required. Puncture Site Right radial Patient Temperature No Result Required. ABG pH 7.285 L ABG pCO2 47.90 H ABG pO2 68.5 L ABG HCO3 22.3 ABG O2 Sat (Measured) 91.5 L ABG O2 Content No Result Required. ABG Base Excess -4.3 L Sai Test Positive Patient On Oxygen Yes O2 Delivery Device V Oxygen Flow Rate 100 Vent Mode Ac Vent Rate 14 Mechanical Rate V PEEP 12.0 Pressure Support Vent 450 POC Glucometer Active Medications Generic Name Dose Route Start Last Admin Trade Name Freq PRN Reason Stop Dose Admin Acetaminophen 650 mg 02/19/20 20:56 Tylenol Oral Solution - GT Q6H PRN PAIN LEVEL 4 - 6 Amlodipine Besylate 10 mg 02/09/20 10:00 02/20/20 10:21 Norvasc - NGT Not Given DAILY [facility] Collagenase 1 applic 02/09/20 10:00 02/19/20 10:29 Santyl - TP 1 applic DAILY [facility] Administration Protocol Guaifenesin 10 ml 02/19/20 20:56 Robitussin - GT Q4H PRN COUGH Ceftriaxone Sodium 1 gm/ 50 mls @ 100 mls/hr 02/17/20 10:00 02/19/20 10:29 Dextrose IVPB 100 mls/hr DAILY JOSE Administration Protocol Midazolam HCl 100 mg in 100 mls @ 1 mls/hr 02/20/20 11:30 Midazolam 100mg/100ml-0.9%Nacl IVPB TITR JOSE Protocol 1 MG/HR Vasopressin 40 units/ Sodium 100 mls @ 5 mls/hr 02/20/20 12:30 02/20/20 11:45 Chloride IVPB 2 units/hr ASDIR JOSE 5 mls/hr Administration Protocol 2 UNITS/HR Sodium Chloride 250 mls @ 3,000 mls/hr 02/20/20 12:37 Normal Saline - IV 02/21/20 12:37 PRN PRN Hypotension during Dialysis Insulin Aspart 1 vial 02/09/20 12:00 02/20/20 06:01 Novolog Vial Sliding Scale - SQ Not Given Q6HPO [facility] Protocol Metoprolol Tartrate 25 mg 02/19/20 22:00 02/20/20 10:20 Lopressor - GT Not Given BID [facility] ASSESSMENT/PLAN: 74 year old female w/ PMH of CVA, ESRD on HD, HTN, HLD, DM, sacral ulcer admitted to ICU for acute hypoxic respiratory failure. #Neuro CVA -intubated; sedated #Cardio HTN. HLD -holding home BP meds due to marginal BP -central line for pressors -maintain MAP>65 -monitor hemodynamics #ENDO -DM -BGMS ACHS -ISS ACHS #GI abdomen US showed overdistended GB with small stones and sludge; no pericholecystic fluid or wall thickening (seen on prior imaging) -PPI #ID -cx -zosyn (renally dosed) -ID on board -monitor hemodynamics #Pulm intubated; sedated -repeat CXR in AM -repeat ABG -medrol 40q6H -duoenbs -aspiration precautions #Renal ESRD on HD -next HD tomorrow -monitor electrolytes -monitor i's and o's -avoid nephrotoxic agents f/e/n not on fluids monitor electrolytes dvt ppx:scds in light of previous bleed code status: full code as per HCP ongoing GOC discussion: palliative care consult and ethics consult placed Visit type - Emergency Visit Emergency Visit: Yes ED Registration Date: 01/15/20 Care time: The patient presented to the Emergency Department on the above date and was hospitalized for further evaluation of their emergent condition. - New Patient This patient is new to me today: No - Critical Care Critical Care patient: Yes Total Critical Care Time (in minutes): 35 Critical Care Statement: The care of this patient involved high complexity decision making to prevent further life threatening deterioration of the patient's condition and/or to evaluate & treat vital organ system(s) failure or risk of failure. - Discharge Referral Physician Referral: PEYMAN Mejia ([facility]) - Medication Review Med list reviewed for High Risk Meds patients 65 and older: Yes ATTENDING PHYSICIAN STATEMENT I saw and evaluated the patient. I reviewed the resident's note and discussed the case with the resident. I agree with the resident's findings and plan as documented. SUBJECTIVE: OBJECTIVE: ASSESSMENT AND PLAN:
[2020-02-20] MEDS ORDERED: NOREPINEPHRINE BITARTRATE 8,000 MCG in DEXTROSE 5%-WATER - 492 ML IV SCH (14:00)
[2020-02-20] MEDS: NOREPINEPHRINE BITARTRATE 8,000 MCG/500 ML BAG IVPB SCH (14:00)
[2020-02-20] MEDS: CEFTRIAXONE 1 GM in DEXTROSE 5%-WATER - 50 ML IVPB SCH (14:08)
--- NOTE | 2020-02-20 14:24 | PN ---
Teaching Attending Note Name of Resident: Nesha Live ATTENDING PHYSICIAN STATEMENT I saw and evaluated the patient. I reviewed the resident's note and discussed the case with the resident. I agree with the resident's findings and plan as documented. SUBJECTIVE: Transferred to the ICU due to acute onset of hypoxemia and AMS. Endotracheally intubated with Glidescope Mac4, 7.5 ETT. CXR: Left atelectasis Intake & Output 02/17/20 02/18/20 02/19/20 02/20/20 23:59 23:59 23:59 23:59 Intake Total 758 482 740 Output Total 4314 Balance -3556 482 740 Weight 103 lb 4 oz 106 lb 4 oz 104 lb Last Vital Signs Temp Pulse Resp BP Pulse Ox 99.0 F 123 H 25 H 70/54 L 95 02/20/20 10:40 02/20/20 13:40 02/20/20 11:45 02/20/20 13:40 02/20/20 11:45 Active Medications Acetaminophen (Tylenol Oral Solution -) 650 mg GT Q6H PRN PRN Reason: PAIN LEVEL 4 - 6 Amlodipine Besylate (Norvasc -) 10 mg NGT DAILY JOSE Last Admin: 02/20/20 10:21 Dose: Not Given Documented by: Collagenase (Santyl -) 1 applic TP DAILY JOSE; Protocol Last Admin: 02/19/20 10:29 Dose: 1 applic Documented by: Guaifenesin (Robitussin -) 10 ml GT Q4H PRN PRN Reason: COUGH Ceftriaxone Sodium 1 gm/ (Dextrose) 50 mls @ 100 mls/hr IVPB DAILY JOSE; Protocol Last Admin: 02/20/20 14:08 Dose: 100 mls/hr Documented by: Midazolam HCl (Midazolam 100mg/100ml-0.9%Nacl) 100 mg in 100 mls @ 1 mls/hr IVPB TITR JOSE; Protocol Vasopressin 40 units/ Sodium (Chloride) 100 mls @ 5 mls/hr IVPB ASDIR JOSE; Protocol Last Titration: 02/20/20 13:40 Dose: 6 units/hr, 15 mls/hr Documented by: Sodium Chloride (Normal Saline -) 250 mls @ 3,000 mls/hr IV PRN PRN PRN Reason: Hypotension during Dialysis Stop: 02/21/20 12:37 Norepinephrine Bitartrate 8, (000 mcg/ Dextrose) 500 mls @ 5.307 mls/hr IV ASDIR JOSE; Protocol Insulin Aspart (Novolog Vial Sliding Scale -) 1 vial SQ Q6HPO JOSE; Protocol Last Admin: 02/20/20 14:04 Dose: Not Given Documented by: Metoprolol Tartrate (Lopressor -) 25 mg GT BID JOSE Last Admin: 02/20/20 10:20 Dose: Not Given Documented by: Constitutional: Yes: Intubated and poorly HENT: Yes: WNL Neck: Yes: WNL Cardiovascular: Yes: Regular Rate and Rhythm, S1, S2 Respiratory: Yes: Diminished on the Left Gastrointestinal: Yes: Normal Bowel Sounds, Soft Extremities: Yes: WNL Edema: No Labs: Laboratory Results - last 24 hr 02/19/20 02/20/20 02/20/20 17:50 01:02 05:57 Anticoagulation Therapy Puncture Site Patient Temperature ABG pH ABG pCO2 ABG pO2 ABG HCO3 ABG O2 Sat (Measured) ABG O2 Content ABG Base Excess Sai Test Patient On Oxygen O2 Delivery Device Oxygen Flow Rate Vent Mode Vent Rate Mechanical Rate PEEP Pressure Support Vent POC Glucometer 179 278 174 02/20/20 02/20/20 02/20/20 10:31 11:00 12:01 Anticoagulation Therapy No Result Required. Puncture Site Right radial Patient Temperature No Result Required. ABG pH 7.449 ABG pCO2 36.80 ABG pO2 52.4 L ABG HCO3 24.9 ABG O2 Sat (Measured) 88.8 L ABG O2 Content No Result Required. ABG Base Excess 1.0 Sai Test Positive Patient On Oxygen Yes O2 Delivery Device Nrm Oxygen Flow Rate 100 Vent Mode No Result Required. Vent Rate No Result Required. Mechanical Rate No Result Required. PEEP No Result Required. Pressure Support Vent No Result Required. POC Glucometer 209 228 02/20/20 12:10 Anticoagulation Therapy No Result Required. Puncture Site Right radial Patient Temperature No Result Required. ABG pH 7.285 L ABG pCO2 47.90 H ABG pO2 68.5 L ABG HCO3 22.3 ABG O2 Sat (Measured) 91.5 L ABG O2 Content No Result Required. ABG Base Excess -4.3 L Sai Test Positive Patient On Oxygen Yes O2 Delivery Device V Oxygen Flow Rate 100 Vent Mode Ac Vent Rate 14 Mechanical Rate V PEEP 12.0 Pressure Support Vent 450 POC Glucometer Problem List - Problems (1) Altered mental status Code(s): R41.82 - ALTERED MENTAL STATUS, UNSPECIFIED (2) Pneumonia, aspiration Code(s): J69.0 - PNEUMONITIS DUE TO INHALATION OF FOOD AND VOMIT (3) Stroke Code(s): I63.9 - CEREBRAL INFARCTION, UNSPECIFIED (4) Hypertension Code(s): I10 - ESSENTIAL (PRIMARY) HYPERTENSION (5) ESRD on dialysis Code(s): N18.6 - END STAGE RENAL DISEASE; Z99.2 - DEPENDENCE ON RENAL DIALYSIS Assessment/Plan Acute Respiratory Failure Acute CVA Pneumonia likely Aspiration ESRD on HD HTN DM Hyperlipidemia h/o CVA - AC Mode of vent : Check ABG - Pulmonary toilet - ABX coverage - Follow CXR - BD TX and short coarse of steroids - HD per Renal - Aspiration precautions - VTE prophylaxis - Grave overall prognosis : continue GOC discussions with the family : Unfortunately unrealistic about her outcome Dr Alonzo Critical care time spent in reviewing chart, evaluating patient and formulating plan - 36 minutes.
[2020-02-20] MEDS ORDERED: ALBUTEROL SO4 2.5/IPRATROPIUM 0.5 INH SOL 3 ML VIAL.NEB. NEB PRN (14:33)
[2020-02-20] MEDS ORDERED: methylPREDNISolone NA SUCC 40 MG/1 ML VIAL IVPUSH SCH (15:00)
[2020-02-20] MEDS ORDERED: PIPERACILLIN/TAZOBACTAM 2.25 GM VIAL IVPB ONE ×2 (15:16→20:52)
[2020-02-20] MEDS: PIPERACILLIN/TAZOB 2.25 GM 2.25 GM in DEXTROSE 5%-WATER - 50 ML IVPB SCH ×2 (15:23→17:26)
[2020-02-20] MEDS: COLLAGENASE CLOSTRIDIUM HIST. 30 GRAMS TUBE TP SCH (16:28)
--- NOTE | 2020-02-20 17:16 | PN ---
Progress Note (short form) - Note Progress Note: 74 year old female brought patient from [place] for unreponsivness for two days prior to admission. Patient has history of stroke three months ago and has been decline since than. Patient has no seizure, she has high wbc and suspected to have aspiration pneumonia. Patient has large right mca cerebral edema. Patient has detiorated and developed hypoxia andshe got intubated and trasnferred to icu NEUROLOGICAL EXAMINATION Patient is comatosed, and wirhdraws to pain neck is supple pupils is small sluggsihly reactive gag and corneal reflex is present bp is maintained ct head showed large right mca cerebral edema with minimal hemorrhagic transformation repeat ct head done on january 28 Assessment/Plan 1. 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 Plan: continue supportive care a - Id following for high wbc and aspiration pneumonia - prongosis is not good continue on ventilation, as patient is full code - 35 min cc time. Pippa sol so much Norman Plascencia MD
[2020-02-20] MEDS ORDERED: VASOPRESSIN 20 UNITS/ML VIAL IV ONE (17:59)
[2020-02-20] MEDS: MIDAZOLAM IN 0.9 % SOD.CHLORID 100 MG/100 ML PLAST..BAG IVPB SCH (20:23)
[2020-02-20] MEDS ORDERED: PHENYLEPHRINE HCL 10,000 MCG in DEXTROSE 5%-WATER - 499 ML IV SCH (20:30)
[2020-02-20] MEDS ORDERED: FLUDROCORTISONE ACETATE 0.1 MG TABLET (FP) PO SCH (20:30)
[2020-02-20] MEDS: HYDROCORTISONE SOD SUCCINATE 100 MG/2 ML VIAL IVPB SCH (21:06)
--- NOTE | 2020-02-20 22:20 | PROC ---
Intubation - Intubation Reason for Intubation: Respiratory Failure, Airway Protection Time of Intubation: 12:00 Intubation Method: orotracheal Blade used: Glidescope Tube Size (cm): 7.5 Tube position @ lip (cm): 22 Tube position confirmed by: Breath sounds Breath Sounds after Intubation: equal Post Intubation Xray: Yes Central Line Insertion Indication: Poor Venous Access, Sepsis, Vasopressor Risks and Benefits Explained: Yes Consent on Chart: Yes Central Line: Triple Lumen Catheter Sterile Technique: Yes Ultrasound Guided Assistance: Yes Position: Right Femoral Sterile Dressing Applied: Yes
[2020-02-20] MEDS ORDERED: RAPID SEQUENCE INTUBATION KIT NR ONE (23:14)
[2020-02-20 23:42] LABS: BASO % 0.1 % (0-2.0); HEMATOCRIT 23.3 % (32.4-45.2); HEMOGLOBIN 7.1 GM/dL (10.7-15.3); LYMPH % 3.3 % (8-40); MCHC 30.4 g/dl (32.0-36.0); MEAN CELL VOLUME 95.4 fl (80-96); MEAN PLT VOLUME 9.5 fl (7.5-11.1); NEUT % 95.6 % (42.8-82.8); PLATELET COUNT 776 K/MM3 (134-434); RBC 2.44 M/mm3 (3.60-5.2)
[2020-02-20 23:46] LABS: WHITE BLOOD COUNT 41.4 K/mm3 (4.0-10.0)
[2020-02-20 23:49] LABS: CALCIUM 9.1 mg/dL (8.5-10.1); MAGNESIUM 2.2 mg/dL (1.8-2.4)
[2020-02-20 23:51] LABS: ALBUMIN 2.5 g/dl (3.4-5.0); BILIRUBIN,TOTAL 0.4 mg/dL (0.2-1); CREATININE 2.7 mg/dL (0.55-1.3); PHOSPHOROUS 3.2 mg/dL (2.5-4.9); TOT PROT 6.8 g/dl (6.4-8.2)
[2020-02-21] MEDS ORDERED: DEXTROSE 5%-WATER - 50 ML IVPB ONE ×4 (01:03→17:45)
[2020-02-21] MEDS ORDERED: PIPERACILLIN/TAZOBACTAM 2.25 GM VIAL IVPB ONE ×3 (01:03→17:44)
[2020-02-21] MEDS: PIPERACILLIN/TAZOB 2.25 GM 2.25 GM in DEXTROSE 5%-WATER - 50 ML IVPB SCH ×3 (01:20→17:54)
[2020-02-21] MEDS: FENTANYL IVPB 500 MCG/100 ML BAG IVPB SCH ×3 (01:20→20:49)
[2020-02-21] MEDS: INSULIN SLIDING SCALE (NOVOLOG) 1 VIAL SQ SCH ×4 (01:25→18:37)
[2020-02-21] MEDS: HYDROCORTISONE SOD SUCCINATE 100 MG/2 ML VIAL IVPB SCH (02:15)
[2020-02-21 02:19] LABS: ANISOCYTOSIS 2+; MACROCYTOSIS 2+
[2020-02-21 02:20] LABS: OVALOCYTE FEW; PLATELET ESTIMATE SIGNIFICANT INCREASE
[2020-02-21 05:33] LABS: ARTERIAL BLD GAS O2 SATURATION 99.5 mmHg (95-98); ARTERIAL BLOOD GAS BASE EXCESS -2.1 mmol/L (-2-2); ARTERIAL BLOOD GAS PO2 222.2 mmHg (80-100); ARTERIAL BLOOD GAS pH 7.408 (7.350-7.450)
[2020-02-21 05:39] LABS: ALLENS TEST POSITIVE; VENT MODE A/C; VENT RATE 14
--- NOTE | 2020-02-21 06:03 | PN ---
Progress Note, Physician Chief Complaint: Pt unresponsive; intubated History of Present Illness: Ms. Galeas is a 74 year old black female with a significant past medical history of ESRD, hypertension, DMII, GERD, HTN, and HL, who presents to the ED, BIBA, and unresponsive x2 days. ESRD (on HD), hypertension, DMII, GERD, HTN, HL, aphasia and stroke [address] showed (01/13) right parietal, occipital and temporal lobe suggestive of acute CVA; no acute intracranial bleed ; Prolonged ICU course complicated by Acute worsening of chronic anemia, likely from stomal bleed. Elevated TNIs most likely anemia- induced ischemia. - Current Medication List Current Medications: Active Medications Acetaminophen (Tylenol Oral Solution -) 650 mg GT Q6H PRN PRN Reason: PAIN LEVEL 4 - 6 Last Admin: 02/20/20 21:06 Dose: 650 mg Documented by: Albuterol/Ipratropium (Duoneb -) 1 amp NEB Q4H PRN PRN Reason: SHORTNESS OF BREATH Amlodipine Besylate (Norvasc -) 10 mg NGT DAILY JOSE Last Admin: 02/20/20 10:21 Dose: Not Given Documented by: Collagenase (Santyl -) 1 applic TP DAILY JOSE; Protocol Last Admin: 02/20/20 16:28 Dose: 1 applic Documented by: Fludrocortisone Acetate (Florinef -) 0.2 mg PO DAILY JOSE Last Admin: 02/20/20 21:07 Dose: 0.2 mg Documented by: Guaifenesin (Robitussin -) 10 ml GT Q4H PRN PRN Reason: COUGH Hydrocortisone Sodium Succinate (Solu-Cortef -) 50 mg IVPB Q6H-IV JOSE Last Admin: 02/21/20 02:15 Dose: 50 mg Documented by: Ceftriaxone Sodium 1 gm/ (Dextrose) 50 mls @ 100 mls/hr IVPB DAILY JOSE; Protocol Last Admin: 02/20/20 14:08 Dose: 100 mls/hr Documented by: Midazolam HCl (Midazolam 100mg/100ml-0.9%Nacl) 100 mg in 100 mls @ 1 mls/hr IVPB TITR JOSE; Protocol Last Admin: 02/20/20 20:23 Dose: 2 mg/hr, 2 mls/hr Documented by: Sodium Chloride (Normal Saline -) 250 mls @ 3,000 mls/hr IV PRN PRN PRN Reason: Hypotension during Dialysis Stop: 02/21/20 12:37 Piperacillin Sod/Tazobactam (Sod 2.25 gm/ Dextrose) 50 mls @ 100 mls/hr IVPB Q8H-IV JOSE; Protocol Last Admin: 02/21/20 01:20 Dose: 100 mls/hr Documented by: Norepinephrine Bitartrate (Levophed Bag) 8,000 mcg in 500 mls @ 18.75 mls/hr IVPB TITR JOSE; Protocol Last Titration: 02/21/20 05:36 Dose: 8 mcg/min, 30 mls/hr Documented by: Fentanyl (Sublimaze Ivpb) 500 mcg in 100 mls @ 9.435 mls/hr IVPB TITR JOSE Last Admin: 02/21/20 01:20 Dose: 0.53 mcg/kg/hr, 5 mls/hr Documented by: Insulin Aspart (Novolog Vial Sliding Scale -) 1 vial SQ Q6HPO JOSE; Protocol Last Admin: 02/21/20 01:25 Dose: 2 units Documented by: Metoprolol Tartrate (Lopressor -) 25 mg GT BID JOSE Last Admin: 02/20/20 10:20 Dose: Not Given Documented by: Pantoprazole Sodium (Protonix Iv) 40 mg IVPUSH DAILY JOSE - Objective Vital Signs: Vital Signs Temperature 97.5 F L 02/21/20 02:00 Pulse Rate 81 02/21/20 03:30 Respiratory Rate 15 02/21/20 04:05 Blood Pressure 116/59 L 02/21/20 03:30 O2 Sat by Pulse Oximetry (%) 100 02/21/20 04:05 Constitutional: Yes: Thin Eyes: Yes: Other HENT: Yes: Other Neck: Yes: Decreased ROM Cardiovascular: Yes: S1, S2 (split) Respiratory: Yes: Mechanically Ventilated Gastrointestinal: Yes: Soft Genitourinary: No: Anuria Musculoskeletal: Yes: Muscle Weakness Extremities: Yes: Cool Edema: No Peripheral Pulses WNL: No Peripheral Pulses: Left Doralis Pedis: 1+, Right Dorsalis Pedis: 1+ Integumentary: Yes: WNL Neurological: Yes: Unresponsive Psychiatric: Yes: Other Labs: CBC, BMP 02/20/20 23:00 02/20/20 23:15 INR, PTT INR 1.56 (0.83-1.09) H 02/02/20 20:30 Fibrinogen 448.0 mg/dL (238-498) 02/05/20 06:00 - ....Imaging Chest X-ray: Image Reviewed EKG: Image Reviewed Assessment/Plan Hypoxemia-->transfer to ICU Intubated/ mechanically ventilated leukocytosis Acute right temporoparietal infarct -- Large MCA aspiration pneumonia; COVID negative ESRD -HD Respiratory failure severe Anemia elevated TNIs - most likely due to demand ischemia due to severe anemia. New LBBB 7-25-20 s/p PEG Nl EF Moderater MR moderate PHT Plan: now intubated, ventilated EKG: f/u TNI keep HCT around 30% Continue Metoprolol tartrate 25 BID ; f/u BP and HR. Is and Os Poor prognosis CC time spent: 35 minutes
[2020-02-21 06:46] LABS: BASO % 0.3 % (0-2.0); EOS % 0.1 % (0-4.5); HEMATOCRIT 23.5 % (32.4-45.2); HEMOGLOBIN 7.3 GM/dL (10.7-15.3); LYMPH % 4.4 % (8-40); MCH 29.4 pg (25.7-33.7); MCHC 31.2 g/dl (32.0-36.0); MEAN CELL VOLUME 94.3 fl (80-96); MEAN PLT VOLUME 9.4 fl (7.5-11.1); MONO % 2.1 % (3.8-10.2); NEUT % 93.1 % (42.8-82.8); PLATELET COUNT 774 K/MM3 (134-434); RBC 2.49 M/mm3 (3.60-5.2); RDW 16.9 % (11.6-15.6)
[2020-02-21 06:50] LABS: WHITE BLOOD COUNT 34.7 K/mm3 (4.0-10.0)
[2020-02-21 07:17] LABS: ALBUMIN 2.4 g/dl (3.4-5.0); BILIRUBIN,TOTAL 0.4 mg/dL (0.2-1); BLOOD UREA NITROGEN 43.8 mg/dL (7-18); CALCIUM 8.7 mg/dL (8.5-10.1); CREATININE 2.8 mg/dL (0.55-1.3); MAGNESIUM 2.3 mg/dL (1.8-2.4); PHOSPHOROUS 3.7 mg/dL (2.5-4.9); POTASSIUM 4.6 mmol/L (3.5-5.1); TOT PROT 6.7 g/dl (6.4-8.2)
--- NOTE | 2020-02-21 08:53 | RAPID ---
<Susan Butler - Last Filed: 02/21/20 12:29> Physical Examination Vital Signs: Vital Signs BP 135/57 P 99 Constitutional: Yes: Thin Cardiovascular: Yes: Regular Rate and Rhythm, S1, S2, Other (radial pulses easily palpable bilaterally, dorsalis pedis pulses not appreciated bilaterally) Respiratory: Yes: Other (patient unable to protect airways, unable to assess clarity due to loud inspiratory and expiratory oral/labial noises) Edema: No Labs: Rapid Response - Rapid Response Assessment: Rapid response was called at 10:34am to the 6th floor. Patient was not protecting her airways due to aspiration pneumonitis vs fluid overload (patient did not receive her HD treatment) vs pulmonary embolism. Patient was intubated and transferred to the ICU. Pulmonary was at bedside. Spoke to daughter Cristal who at first stated "I don't know what to do" the decided to "do whatever you can". Outcome: Patient was transferred to the ICU Critical Care Total Critical Care Time (in minutes): 37 Critical Care Statement: The care of this patient involved high complexity decision making to prevent further life threatening deterioration of the patient's condition and/or to evaluate & treat vital organ system(s) failure or risk of failure. <Jonathan Norman - Last Filed: 03/12/20 20:59> Physical Examination Vital Signs: COrrection to resident's note : on my exam : pulm exam revealed b/l crackles all over lung [place]on. this in addition to hypoxia, and lack of tachycardia makes PE much less likely and makes pulm edema or aspiration much more likely. lasix was ordered but was not given during repeated attempts of intubation. Dr Cooper at bed side, and decided to try intubatioin in ICU. NOn-rebreather was placed on and pt was transferred to ICU to continue further necessary investigations per pulm after intubation . Labs: CBC, BMP 03/05/20 10:26 03/05/20 10:26 Critical Care Total Critical Care Time (in minutes): 40 Critical Care Statement: The care of this patient involved high complexity decision making to prevent further life threatening deterioration of the patient's condition and/or to evaluate & treat vital organ system(s) failure or risk of failure.
[2020-02-21] MEDS ORDERED: cefTRIAXone SODIUM 1 GM VIAL ONE (09:01)
[2020-02-21] MEDS: PANTOPRAZOLE SODIUM 40 MG VIAL IVPUSH SCH (09:04)
[2020-02-21] MEDS: methylPREDNISolone NA SUCC 40 MG/1 ML VIAL IVPUSH SCH ×3 (09:04→20:48)
[2020-02-21] MEDS: COLLAGENASE CLOSTRIDIUM HIST. 30 GRAMS TUBE TP SCH (09:05)
[2020-02-21] MEDS: CEFTRIAXONE 1 GM in DEXTROSE 5%-WATER - 50 ML IVPB SCH (09:05)
[2020-02-21 09:43] LABS: ANISOCYTOSIS 1+; MACROCYTOSIS 1+; PLATELET ESTIMATE INCREASED
--- NOTE | 2020-02-21 11:00 | PN ---
Progress Note (short form) - Note Progress Note: s/p rapid response pt is in ICU now intubated for respiratory failure Vital Signs - 24 hr 02/20/20 02/20/20 02/20/20 11:00 11:30 11:45 Temperature 98.5 F Pulse Rate 106 H 105 H 103 H Respiratory 24 H 27 H 25 H Rate Blood Pressure 99/49 L 78/52 L 71/49 L O2 Sat by Pulse 70 L 80 L 95 Oximetry (%) 02/20/20 02/20/20 02/20/20 12:00 12:30 13:40 Temperature Pulse Rate 112 H 98 H 123 H Respiratory 22 H Rate Blood Pressure 88/60 L 88/60 L 70/54 L O2 Sat by Pulse 92 L Oximetry (%) 02/20/20 02/20/20 02/20/20 14:00 15:00 15:45 Temperature 98.7 F Pulse Rate 106 H 92 H Respiratory 22 H 20 22 H Rate Blood Pressure 86/58 L 101/53 L O2 Sat by Pulse 92 L 91 L 94 L Oximetry (%) 02/20/20 02/20/20 02/20/20 16:00 16:10 18:10 Temperature 98.6 F 98.4 F Pulse Rate 94 H 94 H 104 H Respiratory 24 H 30 H Rate Blood Pressure 106/59 L 90/54 L O2 Sat by Pulse 91 L 93 L Oximetry (%) 02/20/20 02/20/20 02/20/20 18:15 18:45 19:00 Temperature Pulse Rate 105 H 106 H 111 H Respiratory 28 H 28 H 26 H Rate Blood Pressure 92/56 L 85/58 L 91/64 O2 Sat by Pulse Oximetry (%) 02/20/20 02/20/20 02/20/20 19:15 19:30 19:45 Temperature Pulse Rate 107 H 113 H 102 H Respiratory 18 18 18 Rate Blood Pressure 88/62 L 84/65 L 80/63 L O2 Sat by Pulse Oximetry (%) 02/20/20 02/20/20 02/20/20 20:00 20:15 20:20 Temperature Pulse Rate 108 H 111 H 97 H Respiratory 15 15 15 Rate Blood Pressure 73/54 L 84/65 L 67/44 L O2 Sat by Pulse Oximetry (%) 02/20/20 02/20/20 02/20/20 20:30 20:40 20:43 Temperature Pulse Rate 91 H 80 88 Respiratory 18 18 21 H Rate Blood Pressure 122/77 62/52 L 116/58 L O2 Sat by Pulse 99 99 Oximetry (%) 02/20/20 02/20/20 02/20/20 20:45 21:00 21:30 Temperature Pulse Rate 88 87 86 Respiratory 18 22 H Rate Blood Pressure 119/62 97/51 L 122/61 O2 Sat by Pulse 100 99 Oximetry (%) 02/20/20 02/20/20 02/20/20 22:00 22:30 23:00 Temperature 97.5 F L Pulse Rate 87 87 87 Respiratory 16 17 19 Rate Blood Pressure 113/60 113/58 L 119/58 L O2 Sat by Pulse 100 100 100 Oximetry (%) 02/20/20 02/21/20 02/21/20 23:30 00:00 00:14 Temperature Pulse Rate 86 87 Respiratory 16 18 16 Rate Blood Pressure 128/63 128/59 L O2 Sat by Pulse 100 100 Oximetry (%) 02/21/20 02/21/20 02/21/20 00:30 01:00 01:30 Temperature Pulse Rate 89 87 86 Respiratory 21 H 14 14 Rate Blood Pressure 126/60 124/61 129/62 O2 Sat by Pulse 100 100 100 Oximetry (%) 02/21/20 02/21/20 02/21/20 02:00 02:30 03:00 Temperature 97.5 F L Pulse Rate 84 83 83 Respiratory 15 14 14 Rate Blood Pressure 127/60 123/62 121/62 O2 Sat by Pulse 94 L 100 100 Oximetry (%) 02/21/20 02/21/20 02/21/20 03:30 04:00 04:05 Temperature Pulse Rate 81 81 Respiratory 14 14 15 Rate Blood Pressure 116/59 L 118/60 O2 Sat by Pulse 100 100 100 Oximetry (%) 02/21/20 02/21/20 02/21/20 04:30 05:00 05:30 Temperature Pulse Rate 82 81 82 Respiratory 14 14 14 Rate Blood Pressure 127/62 125/61 120/64 O2 Sat by Pulse 100 100 100 Oximetry (%) 02/21/20 02/21/20 02/21/20 06:00 06:30 07:00 Temperature 98.2 F Pulse Rate 83 80 78 Respiratory 17 18 18 Rate Blood Pressure 119/58 L 119/57 L 116/63 O2 Sat by Pulse 100 100 98 Oximetry (%) 02/21/20 02/21/20 02/21/20 08:00 08:20 09:00 Temperature 98.4 F Pulse Rate 76 75 Respiratory 19 19 18 Rate Blood Pressure 115/63 111/58 L O2 Sat by Pulse 98 98 98 Oximetry (%) Current Medications Generic Name Dose Route Start Last Admin Trade Name Freq PRN Reason Stop Dose Admin Acetaminophen 650 mg 02/19/20 20:56 02/20/20 21:06 Tylenol Oral Solution - GT 650 mg Q6H PRN Administration PAIN LEVEL 4 - 6 Albuterol/Ipratropium 1 amp 02/20/20 14:33 Duoneb - NEB Q4H PRN SHORTNESS OF BREATH Amlodipine Besylate 10 mg 02/09/20 10:00 02/20/20 10:21 Norvasc - NGT Not Given DAILY JOSE Collagenase 1 applic 02/09/20 10:00 02/21/20 09:05 Santyl - TP 1 applic DAILY JOSE Administration Protocol Guaifenesin 10 ml 02/19/20 20:56 Robitussin - GT Q4H PRN COUGH Ceftriaxone Sodium 1 gm/ 50 mls @ 100 mls/hr 02/17/20 10:00 02/21/20 09:05 Dextrose IVPB 100 mls/hr DAILY JOSE Administration Protocol Midazolam HCl 100 mg in 100 mls @ 1 mls/hr 02/20/20 11:30 02/20/20 20:23 Midazolam 100mg/100ml-0.9%Nacl IVPB 2 mg/hr TITR JOSE 2 mls/hr Administration Protocol 1 MG/HR Sodium Chloride 250 mls @ 3,000 mls/hr 02/20/20 12:37 Normal Saline - IV 02/21/20 12:37 PRN PRN Hypotension during Dialysis Piperacillin Sod/Tazobactam 50 mls @ 100 mls/hr 02/20/20 14:45 02/21/20 09:04 Sod 2.25 gm/ Dextrose IVPB 100 mls/hr Q8H-IV JOSE Administration Protocol Norepinephrine Bitartrate 8,000 mcg in 500 mls @ 18.75 mls/hr 02/20/20 15:15 02/21/20 09:23 Levophed Bag IVPB 6 mcg/min TITR JOSE 22.5 mls/hr Titration Protocol 5 MCG/MIN Fentanyl 500 mcg in 100 mls @ 9.435 mls/hr 02/20/20 21:00 02/21/20 01:20 Sublimaze Ivpb IVPB 0.53 mcg/kg/hr TITR JOSE 5 mls/hr Administration 1 MCG/KG/HR Insulin Aspart 1 vial 02/09/20 12:00 02/21/20 06:28 Novolog Vial Sliding Scale - SQ 4 units Q6HPO JOSE Administration Protocol Methylprednisolone Sodium Succinate 40 mg 02/21/20 09:00 02/21/20 09:04 Solu-Medrol - IVPUSH 40 mg Q6H-IV JOSE Administration Metoprolol Tartrate 25 mg 02/19/20 22:00 02/20/20 10:20 Lopressor - GT Not Given BID JOSE Pantoprazole Sodium 40 mg 02/21/20 10:00 02/21/20 09:04 Protonix Iv IVPUSH 40 mg DAILY JOSE Administration Laboratory Results - last 24 hr 02/20/20 02/20/20 02/20/20 11:00 12:01 12:10 WBC RBC Hgb Hct MCV MCH MCHC RDW Plt Count MPV Absolute Neuts (auto) Total Counted Neutrophils % Neutrophils % (Manual) Band Neutrophils % Lymphocytes % Lymphocytes % (Manual) Monocytes % Monocytes % (Manual) Eosinophils % Eosinophils % (Manual) Basophils % Basophils % (Manual) Myelocytes % (Man) Promyelocytes % (Man) Blast Cells % (Manual) Nucleated RBC % Metamyelocytes Hypochromia Platelet Estimate Platelet Comment Polychromasia Poikilocytosis Anisocytosis Microcytosis Macrocytosis Ovalocytes Stomatocytes Fragmented RBCs Anticoagulation Therapy No Result Required. No Result Required. Puncture Site Right radial Right radial Patient Temperature No Result Required. No Result Required. ABG pH 7.449 7.285 L ABG pCO2 36.80 47.90 H ABG pO2 52.4 L 68.5 L ABG HCO3 24.9 22.3 ABG O2 Sat (Measured) 88.8 L 91.5 L ABG O2 Content No Result Required. No Result Required. ABG Base Excess 1.0 -4.3 L Sai Test Positive Positive Patient On Oxygen Yes Yes O2 Delivery Device Nrm V Oxygen Flow Rate 100 100 Vent Mode No Result Required. Ac Vent Rate No Result Required. 14 Mechanical Rate No Result Required. V PEEP No Result Required. 12.0 Pressure Support Vent No Result Required. 450 Sodium Potassium Chloride Carbon Dioxide Anion Gap BUN Creatinine Est GFR (CKD-EPI)AfAm Est GFR (CKD-EPI)NonAf POC Glucometer 228 Random Glucose Calcium Phosphorus Magnesium Total Bilirubin AST ALT Alkaline Phosphatase Creatine Kinase Troponin I Total Protein Albumin 02/20/20 02/20/20 02/20/20 18:06 23:00 23:00 WBC 41.4 H* RBC 2.44 L Hgb 7.1 L Hct 23.3 L MCV 95.4 MCH 29.0 MCHC 30.4 L RDW 17.0 H Plt Count 776 H MPV 9.5 Absolute Neuts (auto) 39.6 H Total Counted 100 Neutrophils % 95.6 H Neutrophils % (Manual) 85.0 H Band Neutrophils % 6.0 Lymphocytes % 3.3 L D Lymphocytes % (Manual) 2.0 L D Monocytes % 1.0 L D Monocytes % (Manual) 4 Eosinophils % 0.0 D Eosinophils % (Manual) Basophils % 0.1 Basophils % (Manual) Myelocytes % (Man) Promyelocytes % (Man) Blast Cells % (Manual) Nucleated RBC % 1 H Metamyelocytes 3 H D Hypochromia 2+ Platelet Estimate Significant increase Platelet Comment Giant platelets Polychromasia 2+ Poikilocytosis Anisocytosis 2+ Microcytosis 1+ Macrocytosis 2+ Ovalocytes Few Stomatocytes Few Fragmented RBCs Few Anticoagulation Therapy Puncture Site Patient Temperature ABG pH ABG pCO2 ABG pO2 ABG HCO3 ABG O2 Sat (Measured) ABG O2 Content ABG Base Excess Sai Test Patient On Oxygen O2 Delivery Device Oxygen Flow Rate Vent Mode Vent Rate Mechanical Rate PEEP Pressure Support Vent Sodium Cancelled Potassium Cancelled Chloride Cancelled Carbon Dioxide Cancelled Anion Gap Cancelled BUN Cancelled Creatinine Cancelled Est GFR (CKD-EPI)AfAm Cancelled Est GFR (CKD-EPI)NonAf Cancelled POC Glucometer 279 Random Glucose Cancelled Calcium Cancelled Phosphorus Cancelled Magnesium Cancelled Total Bilirubin Cancelled AST Cancelled ALT Cancelled Alkaline Phosphatase Cancelled Creatine Kinase Troponin I Total Protein Cancelled Albumin Cancelled 02/20/20 02/21/20 02/21/20 23:15 01:22 05:20 WBC RBC Hgb Hct MCV MCH MCHC RDW Plt Count MPV Absolute Neuts (auto) Total Counted Neutrophils % Neutrophils % (Manual) Band Neutrophils % Lymphocytes % Lymphocytes % (Manual) Monocytes % Monocytes % (Manual) Eosinophils % Eosinophils % (Manual) Basophils % Basophils % (Manual) Myelocytes % (Man) Promyelocytes % (Man) Blast Cells % (Manual) Nucleated RBC % Metamyelocytes Hypochromia Platelet Estimate Platelet Comment Polychromasia Poikilocytosis Anisocytosis Microcytosis Macrocytosis Ovalocytes Stomatocytes Fragmented RBCs Anticoagulation Therapy No Result Required. Puncture Site Right radial Patient Temperature No Result Required. ABG pH 7.408 ABG pCO2 36.10 ABG pO2 222.2 H ABG HCO3 22.3 ABG O2 Sat (Measured) 99.5 H ABG O2 Content No Result Required. ABG Base Excess -2.1 L Sai Test Positive Patient On Oxygen Yes O2 Delivery Device 100% Oxygen Flow Rate Yes Vent Mode A/c Vent Rate 14 Mechanical Rate Yes PEEP 12.0 Pressure Support Vent 450 Sodium 144 Potassium 4.0 Chloride 106 Carbon Dioxide 26 Anion Gap 11 BUN 37.0 H Creatinine 2.7 H Est GFR (CKD-EPI)AfAm 19.07 Est GFR (CKD-EPI)NonAf 16.46 POC Glucometer 230 Random Glucose 241 H Calcium 9.1 Phosphorus 3.2 Magnesium 2.2 Total Bilirubin 0.4 AST 50 H ALT 19 Alkaline Phosphatase 209 H Creatine Kinase Troponin I Total Protein 6.8 Albumin 2.5 L 02/21/20 02/21/20 02/21/20 05:30 05:30 06:17 WBC 34.7 H* RBC 2.49 L Hgb 7.3 L Hct 23.5 L MCV 94.3 MCH 29.4 MCHC 31.2 L RDW 16.9 H Plt Count 774 H MPV 9.4 Absolute Neuts (auto) 32.4 H Total Counted Neutrophils % 93.1 H Neutrophils % (Manual) 83.7 H Band Neutrophils % 10.2 Lymphocytes % 4.4 L D Lymphocytes % (Manual) 2.1 L Monocytes % 2.1 L D Monocytes % (Manual) 2 L Eosinophils % 0.1 D Eosinophils % (Manual) 0.0 D Basophils % 0.3 Basophils % (Manual) 1.0 D Myelocytes % (Man) 1 D Promyelocytes % (Man) 0 Blast Cells % (Manual) 0 Nucleated RBC % 1 H Metamyelocytes 0 D Hypochromia 1+ Platelet Estimate Increased Platelet Comment Present Polychromasia 0 Poikilocytosis 0 Anisocytosis 1+ Microcytosis 1+ Macrocytosis 1+ Ovalocytes Stomatocytes Fragmented RBCs Anticoagulation Therapy Puncture Site Patient Temperature ABG pH ABG pCO2 ABG pO2 ABG HCO3 ABG O2 Sat (Measured) ABG O2 Content ABG Base Excess Sai Test Patient On Oxygen O2 Delivery Device Oxygen Flow Rate Vent Mode Vent Rate Mechanical Rate PEEP Pressure Support Vent Sodium 141 Potassium 4.6 Chloride 104 Carbon Dioxide 26 Anion Gap 12 BUN 43.8 H Creatinine 2.8 H Est GFR (CKD-EPI)AfAm 18.25 Est GFR (CKD-EPI)NonAf 15.75 POC Glucometer 287 Random Glucose 336 H Calcium 8.7 Phosphorus 3.7 Magnesium 2.3 Total Bilirubin 0.4 AST 44 H ALT 21 Alkaline Phosphatase 199 H Creatine Kinase 44 Troponin I 0.41 H Total Protein 6.7 Albumin 2.4 L S1 S2 RRR left side edematous Lungs decreased Abd- soft, NT, GT+ No edema intubated ,sedated ct head showed large right mca cerebral edema with minimal hemorrhagic t ransformation repeat ct head done on january 28 A/P acute respiratory failure fever 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 ESRD on HD aspiration pneumonia acute respiratory failure -proteus in blood sepsis -- iv antibiotics -- pt is FULL CODE -- continue with current care -- poor prognosis -- vent management per ICU -- pressor support as needed Problem List - Problems (1) Altered mental status Code(s): R41.82 - ALTERED MENTAL STATUS, UNSPECIFIED (2) Lactic acidosis Code(s): E87.2 - ACIDOSIS (3) Pneumonia, aspiration Code(s): J69.0 - PNEUMONITIS DUE TO INHALATION OF FOOD AND VOMIT (4) Stroke Code(s): I63.9 - CEREBRAL INFARCTION, UNSPECIFIED (5) ESRD on dialysis Code(s): N18.6 - END STAGE RENAL DISEASE; Z99.2 - DEPENDENCE ON RENAL DIALYSIS (6) Hypertension Code(s): I10 - ESSENTIAL (PRIMARY) HYPERTENSION
--- NOTE | 2020-02-21 11:26 | PN ---
Physical Exam: SUBJECTIVE: Patient seen and examined at bedside. pt is intubated and sedated OBJECTIVE: Vital Signs Period Temp Pulse Resp BP Sys/Ramirez Pulse Ox Last 24 Hr 97.5 F-98.7 F 75-123 14-30 62-129/44-77 80-100 GENERAL: The patient is intubated and sedated . HEAD: Normal with no signs of trauma. EYES: pupils not reactive LUNGS: vent sounds b/l. rhonchi L>R. no accessory muscle use. HEART: Regular rate and rhythm, S1, S2 ABDOMEN: Soft, nontender, nondistended, normoactive bowel sounds, no guarding EXTREMITIES: 2+ pulses, warm, well-perfused, no edema. CBC, BMP 02/21/20 05:30 02/21/20 05:30 Active Medications Generic Name Dose Route Start Last Admin Trade Name Freq PRN Reason Stop Dose Admin Acetaminophen 650 mg 02/19/20 20:56 02/20/20 21:06 Tylenol Oral Solution - GT 650 mg Q6H PRN Administration PAIN LEVEL 4 - 6 Albuterol/Ipratropium 1 amp 02/20/20 14:33 Duoneb - NEB Q4H PRN SHORTNESS OF BREATH Amlodipine Besylate 10 mg 02/09/20 10:00 02/20/20 10:21 Norvasc - NGT Not Given DAILY JOSE Collagenase 1 applic 02/09/20 10:00 02/21/20 09:05 Santyl - TP 1 applic DAILY JOSE Administration Protocol Guaifenesin 10 ml 02/19/20 20:56 Robitussin - GT Q4H PRN COUGH Ceftriaxone Sodium 1 gm/ 50 mls @ 100 mls/hr 02/17/20 10:00 02/21/20 09:05 Dextrose IVPB 100 mls/hr DAILY JOSE Administration Protocol Midazolam HCl 100 mg in 100 mls @ 1 mls/hr 02/20/20 11:30 02/20/20 20:23 Midazolam 100mg/100ml-0.9%Nacl IVPB 2 mg/hr TITR JOSE 2 mls/hr Administration Protocol 1 MG/HR Sodium Chloride 250 mls @ 3,000 mls/hr 02/20/20 12:37 Normal Saline - IV 02/21/20 12:37 PRN PRN Hypotension during Dialysis Piperacillin Sod/Tazobactam 50 mls @ 100 mls/hr 02/20/20 14:45 02/21/20 09:04 Sod 2.25 gm/ Dextrose IVPB 100 mls/hr Q8H-IV JOSE Administration Protocol Norepinephrine Bitartrate 8,000 mcg in 500 mls @ 18.75 mls/hr 02/20/20 15:15 02/21/20 09:23 Levophed Bag IVPB 6 mcg/min TITR JOSE 22.5 mls/hr Titration Protocol 5 MCG/MIN Fentanyl 500 mcg in 100 mls @ 9.435 mls/hr 02/20/20 21:00 02/21/20 01:20 Sublimaze Ivpb IVPB 0.53 mcg/kg/hr TITR JOSE 5 mls/hr Administration 1 MCG/KG/HR Insulin Aspart 1 vial 02/09/20 12:00 02/21/20 06:28 Novolog Vial Sliding Scale - SQ 4 units Q6HPO JOSE Administration Protocol Methylprednisolone Sodium Succinate 40 mg 02/21/20 09:00 02/21/20 09:04 Solu-Medrol - IVPUSH 40 mg Q6H-IV JOSE Administration Metoprolol Tartrate 25 mg 02/19/20 22:00 02/20/20 10:20 Lopressor - GT Not Given BID JOSE Pantoprazole Sodium 40 mg 02/21/20 10:00 02/21/20 09:04 Protonix Iv IVPUSH 40 mg DAILY JOSE Administration ASSESSMENT/PLAN: 74 year old female w/ PMH of CVA, ESRD on HD, HTN, HLD, DM, sacral ulcer admitted to ICU for acute hypoxic respiratory failure. Neuro CVA -intubated; sedated Cardio HTN. HLD - on levo 8 this am-->5 -maintain MAP>65 -hold antihypertensives ENDO -DM -BGMS ISS ACHS GI abdomen US showed overdistended GB with small stones and sludge; no pericholecystic fluid or wall thickening (seen on prior imaging) -c/w PPI ID -pending cx -c/w zosyn (renally dosed)d2 -ID on board Pulm intubated; sedated -repeat CXR improved, ABG reviewed -medrol 40q6H. stress steroids dc 'ed -duoenbs -aspiration precautions Renal ESRD on HD -monitor electrolytes -monitor i's and o's -avoid nephrotoxic agents - renal following f/e/n not on fluids monitor electrolytes Lines R fem line 02/19. will put in IJ today dvt ppx:scds in light of previous bleed code status: full code as per HCP ongoing GOC discussion: palliative care consult and ethics consult placed ATTENDING PHYSICIAN STATEMENT I saw and evaluated the patient. I reviewed the resident's note and discussed the case with the resident. I agree with the resident's findings and plan as documented. SUBJECTIVE: OBJECTIVE: ASSESSMENT AND PLAN:
[2020-02-21] MEDS: MIDAZOLAM IN 0.9 % SOD.CHLORID 100 MG/100 ML PLAST..BAG IVPB SCH (11:46)
[2020-02-21] MEDS: NOREPINEPHRINE BITARTRATE 8,000 MCG/500 ML BAG IVPB SCH ×2 (11:51→16:42)
--- NOTE | 2020-02-21 12:31 | PN ---
Progress Note, Physician History of Present Illness: 74 year old female with medical history of ESRD (on HD), hypertension, DMII, GERD, HTN, HL, aphasia and stroke 3 months ago, admitted to ICU fro ED for progressive weakness and reported unresponsiveness. Head CT showed (01/13) right pareital, occipital and temporal lobe suggestive of acute CVA no acute intracranial bleed ; Prolonged ICU course complicated by Acxute worsening of chronic anemia, likely from stomal bleed. Elevated TNIs most likely anemia induced ischemia. - Current Medication List Current Medications: Active Medications Acetaminophen (Tylenol Oral Solution -) 650 mg GT Q6H PRN PRN Reason: PAIN LEVEL 4 - 6 Last Admin: 02/20/20 21:06 Dose: 650 mg Documented by: Albuterol/Ipratropium (Duoneb -) 1 amp NEB Q4H PRN PRN Reason: SHORTNESS OF BREATH Amlodipine Besylate (Norvasc -) 10 mg NGT DAILY JOSE Last Admin: 02/20/20 10:21 Dose: Not Given Documented by: Collagenase (Santyl -) 1 applic TP DAILY JOSE; Protocol Last Admin: 02/21/20 09:05 Dose: 1 applic Documented by: Guaifenesin (Robitussin -) 10 ml GT Q4H PRN PRN Reason: COUGH Ceftriaxone Sodium 1 gm/ (Dextrose) 50 mls @ 100 mls/hr IVPB DAILY JOSE; Protocol Last Admin: 02/21/20 09:05 Dose: 100 mls/hr Documented by: Midazolam HCl (Midazolam 100mg/100ml-0.9%Nacl) 100 mg in 100 mls @ 1 mls/hr IVPB TITR JOSE; Protocol Last Admin: 02/21/20 11:46 Dose: Not Given Documented by: Sodium Chloride (Normal Saline -) 250 mls @ 3,000 mls/hr IV PRN PRN PRN Reason: Hypotension during Dialysis Stop: 02/21/20 12:37 Piperacillin Sod/Tazobactam (Sod 2.25 gm/ Dextrose) 50 mls @ 100 mls/hr IVPB Q8H-IV JOSE; Protocol Last Admin: 02/21/20 09:04 Dose: 100 mls/hr Documented by: Norepinephrine Bitartrate (Levophed Bag) 8,000 mcg in 500 mls @ 18.75 mls/hr IV PB TITR JOSE; Protocol Last Admin: 02/21/20 11:51 Dose: 3 mcg/min, 11.25 mls/hr Documented by: Fentanyl (Sublimaze Ivpb) 500 mcg in 100 mls @ 9.435 mls/hr IVPB TITR [facility] Last Admin: 02/21/20 01:20 Dose: 0.53 mcg/kg/hr, 5 mls/hr Documented by: Insulin Aspart (Novolog Vial Sliding Scale -) 1 vial SQ Q6HPO [facility]; Protocol Last Admin: 02/21/20 11:47 Dose: 2 units Documented by: Methylprednisolone Sodium Succinate (Solu-Medrol -) 40 mg IVPUSH Q6H-IV JOSE Last Admin: 02/21/20 09:04 Dose: 40 mg Documented by: Metoprolol Tartrate (Lopressor -) 25 mg GT BID [facility] Last Admin: 02/20/20 10:20 Dose: Not Given Documented by: Pantoprazole Sodium (Protonix Iv) 40 mg IVPUSH DAILY [facility] Last Admin: 02/21/20 09:04 Dose: 40 mg Documented by: - Objective Vital Signs: Vital Signs Temperature 98.4 F 02/21/20 09:00 Pulse Rate 75 02/21/20 09:00 Respiratory Rate 18 02/21/20 09:00 Blood Pressure 111/58 L 02/21/20 09:00 O2 Sat by Pulse Oximetry (%) 98 02/21/20 09:00 Eyes: Yes: WNL, Conjunctiva Clear, EOM Intact HENT: Yes: WNL, Atraumatic, Normocephalic Neck: Yes: WNL, Supple, Trachea Midline Cardiovascular: Yes: WNL, Regular Rate and Rhythm Respiratory: Yes: Intubated, Mechanically Ventilated Gastrointestinal: Yes: WNL, Normal Bowel Sounds Genitourinary: Yes: WNL Musculoskeletal: Yes: WNL Extremities: Yes: WNL Edema: No Integumentary: Yes: WNL Labs: CBC, BMP 02/21/20 05:30 02/21/20 05:30 INR, PTT INR 1.56 (0.83-1.09) H 02/02/20 20:30 Fibrinogen 448.0 mg/dL (238-498) 02/05/20 06:00 Problem List - Problems (1) Altered mental status Code(s): R41.82 - ALTERED MENTAL STATUS, UNSPECIFIED (2) Anemia Code(s): D64.9 - ANEMIA, UNSPECIFIED (3) Lactic acidosis Code(s): E87.2 - ACIDOSIS (4) Pneumonia, aspiration Code(s): J69.0 - PNEUMONITIS DUE TO INHALATION OF FOOD AND VOMIT (5) Stroke Code(s): I63.9 - CEREBRAL INFARCTION, UNSPECIFIED (6) Clotted dialysis access Code(s): T82.49XA - OTH COMPLICATION OF VASCULAR DIALYSIS CATHETER, INIT ENCNTR (7) Diabetes Code(s): E11.9 - TYPE 2 DIABETES MELLITUS WITHOUT COMPLICATIONS (8) ESRD on dialysis Code(s): N18.6 - END STAGE RENAL DISEASE; Z99.2 - DEPENDENCE ON RENAL DIALYSIS (9) Hypertension Code(s): I10 - ESSENTIAL (PRIMARY) HYPERTENSION (10) SOB (shortness of breath) Code(s): R06.02 - SHORTNESS OF BREATH Assessment/Plan Hypoxemia-->transfer to ICU Intubated/ mechanically ventilated leukocytosis Acute right temporoparietal infarct -- Large MCA aspiration pneumonia; COVID negative ESRD -HD Respiratory failure severe Anemia elevated TNIs - most likely due to demand ischemia due to severe anemia. New LBBB 7-25-20 s/p PEG Nl EF Moderater MR moderate PHT Plan: now intubated, ventilated EKG: f/u TNI keep HCT around 30% Continue Metoprolol tartrate 25 BID ; f/u BP and HR. Is and Os Poor prognosis CC time spent: 35 minutes
--- NOTE | 2020-02-21 14:02 | PN ---
Teaching Attending Note Name of Resident: María Lr ATTENDING PHYSICIAN STATEMENT I saw and evaluated the patient. I reviewed the resident's note and discussed the case with the resident. I agree with the resident's findings and plan as documented. SUBJECTIVE: Patient seen and examined in the ICU. Remains intubated and sedated. AC Mode of vent. NE @ 8 mcq for hemodynamic support. CXR: Improving left atelectasis Intake & Output 02/18/20 02/19/20 02/20/20 02/21/20 23:59 23:59 23:59 23:59 Intake Total 482 740 919 913 Output Total 8540 Balance [phone] -9997 913 Weight 106 lb 4 oz 104 lb 89 lb 12.8 oz Last Vital Signs Temp Pulse Resp BP Pulse Ox 98.4 F 76 15 106/52 L 97 02/21/20 09:00 02/21/20 12:00 02/21/20 12:30 02/21/20 12:00 02/21/20 12:30 Active Medications Acetaminophen (Tylenol Oral Solution -) 650 mg GT Q6H PRN PRN Reason: PAIN LEVEL 4 - 6 Last Admin: 02/20/20 21:06 Dose: 650 mg Documented by: Albuterol/Ipratropium (Duoneb -) 1 amp NEB Q4H PRN PRN Reason: SHORTNESS OF BREATH Amlodipine Besylate (Norvasc -) 10 mg NGT DAILY JOSE Last Admin: 02/20/20 10:21 Dose: Not Given Documented by: Collagenase (Santyl -) 1 applic TP DAILY JOSE; Protocol Last Admin: 02/21/20 09:05 Dose: 1 applic Documented by: Guaifenesin (Robitussin -) 10 ml GT Q4H PRN PRN Reason: COUGH Ceftriaxone Sodium 1 gm/ (Dextrose) 50 mls @ 100 mls/hr IVPB DAILY JOSE; Protocol Last Admin: 02/21/20 09:05 Dose: 100 mls/hr Documented by: Midazolam HCl (Midazolam 100mg/100ml-0.9%Nacl) 100 mg in 100 mls @ 1 mls/hr IVPB TITR JOSE; Protocol Last Admin: 02/21/20 11:46 Dose: Not Given Documented by: Sodium Chloride (Normal Saline -) 250 mls @ 3,000 mls/hr IV PRN PRN PRN Reason: Hypotension during Dialysis Stop: 02/21/20 12:37 Piperacillin Sod/Tazobactam (Sod 2.25 gm/ Dextrose) 50 mls @ 100 mls/hr IVPB Q8H-IV JOSE; Protocol Last Admin: 02/21/20 09:04 Dose: 100 mls/hr Documented by: Norepinephrine Bitartrate (Levophed Bag) 8,000 mcg in 500 mls @ 18.75 mls/hr IVPB TITR JOSE; Protocol Last Admin: 02/21/20 11:51 Dose: 3 mcg/min, 11.25 mls/hr Documented by: Fentanyl (Sublimaze Ivpb) 500 mcg in 100 mls @ 9.435 mls/hr IVPB TITR JOSE Last Admin: 02/21/20 01:20 Dose: 0.53 mcg/kg/hr, 5 mls/hr Documented by: Insulin Aspart (Novolog Vial Sliding Scale -) 1 vial SQ Q6HPO [facility] [place]; Protocol Last Admin: 02/21/20 11:47 Dose: 2 units Documented by: Methylprednisolone Sodium Succinate (Solu-Medrol -) 40 mg IVPUSH Q6H-IV JOSE Last Admin: 02/21/20 09:04 Dose: 40 mg Documented by: Metoprolol Tartrate (Lopressor -) 25 mg GT BID JOSE Last Admin: 02/20/20 10:20 Dose: Not Given Documented by: Pantoprazole Sodium (Protonix Iv) 40 mg IVPUSH DAILY [facility] [place] Last Admin: 02/21/20 09:04 Dose: 40 mg Documented by: Constitutional: Yes: Intubated and poorly responsive HENT: Yes: WNL Neck: Yes: WNL Cardiovascular: Yes: Regular Rate and Rhythm, S1, S2 Respiratory: Yes: Vented, bilateral rhonchi: Left > Right Gastrointestinal: Yes: Normal Bowel Sounds, Soft Extremities: Yes: WNL Edema: No Labs: Laboratory Results - last 24 hr 02/20/20 02/20/20 02/20/20 18:06 23:00 23:00 WBC 41.4 H* RBC 2.44 L Hgb 7.1 L Hct 23.3 L MCV 95.4 MCH 29.0 MCHC 30.4 L RDW 17.0 H Plt Count 776 H MPV 9.5 Absolute Neuts (auto) 39.6 H Total Counted 100 Neutrophils % 95.6 H Neutrophils % (Manual) 85.0 H Band Neutrophils % 6.0 Lymphocytes % 3.3 L D Lymphocytes % (Manual) 2.0 L D Monocytes % 1.0 L D Monocytes % (Manual) 4 Eosinophils % 0.0 D Eosinophils % (Manual) Basophils % 0.1 Basophils % (Manual) Myelocytes % (Man) Promyelocytes % (Man) Blast Cells % (Manual) Nucleated RBC % 1 H Metamyelocytes 3 H D Hypochromia 2+ Platelet Estimate Significant increase Platelet Comment Giant platelets Polychromasia 2+ Poikilocytosis Anisocytosis 2+ Microcytosis 1+ Macrocytosis 2+ Ovalocytes Few Stomatocytes Few Fragmented RBCs Few Anticoagulation Therapy Puncture Site Patient Temperature ABG pH ABG pCO2 ABG pO2 ABG HCO3 ABG O2 Sat (Measured) ABG O2 Content ABG Base Excess Sai Test Patient On Oxygen O2 Delivery Device Oxygen Flow Rate Vent Mode Vent Rate Mechanical Rate PEEP Pressure Support Vent Sodium Cancelled Potassium Cancelled Chloride Cancelled Carbon Dioxide Cancelled Anion Gap Cancelled BUN Cancelled Creatinine Cancelled Est GFR (CKD-EPI)AfAm Cancelled Est GFR (CKD-EPI)NonAf Cancelled POC Glucometer 279 Random Glucose Cancelled Calcium Cancelled Phosphorus Cancelled Magnesium Cancelled Total Bilirubin Cancelled AST Cancelled ALT Cancelled Alkaline Phosphatase Cancelled Creatine Kinase Troponin I Total Protein Cancelled Albumin Cancelled 02/20/20 02/21/20 02/21/20 23:15 01:22 05:20 WBC RBC Hgb Hct MCV MCH MCHC RDW Plt Count MPV Absolute Neuts (auto) Total Counted Neutrophils % Neutrophils % (Manual) Band Neutrophils % Lymphocytes % Lymphocytes % (Manual) Monocytes % Monocytes % (Manual) Eosinophils % Eosinophils % (Manual) Basophils % Basophils % (Manual) Myelocytes % (Man) Promyelocytes % (Man) Blast Cells % (Manual) Nucleated RBC % Metamyelocytes Hypochromia Platelet Estimate Platelet Comment Polychromasia Poikilocytosis Anisocytosis Microcytosis Macrocytosis Ovalocytes Stomatocytes Fragmented RBCs Anticoagulation Therapy No Result Required. Puncture Site Right radial Patient Temperature No Result Required. ABG pH 7.408 ABG pCO2 36.10 ABG pO2 222.2 H ABG HCO3 22.3 ABG O2 Sat (Measured) 99.5 H ABG O2 Content No Result Required. ABG Base Excess -2.1 L Sai Test Positive Patient On Oxygen Yes O2 Delivery Device 100% Oxygen Flow Rate Yes Vent Mode A/c Vent Rate 14 Mechanical Rate Yes PEEP 12.0 Pressure Support Vent 450 Sodium 144 Potassium 4.0 Chloride 106 Carbon Dioxide 26 Anion Gap 11 BUN 37.0 H Creatinine 2.7 H Est GFR (CKD-EPI)AfAm 19.07 Est GFR (CKD-EPI)NonAf 16.46 POC Glucometer 230 Random Glucose 241 H Calcium 9.1 Phosphorus 3.2 Magnesium 2.2 Total Bilirubin 0.4 AST 50 H ALT 19 Alkaline Phosphatase 209 H Creatine Kinase Troponin I Total Protein 6.8 Albumin 2.5 L 02/21/20 02/21/20 02/21/20 05:30 05:30 06:17 WBC 34.7 H* RBC 2.49 L Hgb 7.3 L Hct 23.5 L MCV 94.3 MCH 29.4 MCHC 31.2 L RDW 16.9 H Plt Count 774 H MPV 9.4 Absolute Neuts (auto) 32.4 H Total Counted Neutrophils % 93.1 H Neutrophils % (Manual) 83.7 H Band Neutrophils % 10.2 Lymphocytes % 4.4 L D Lymphocytes % (Manual) 2.1 L Monocytes % 2.1 L D Monocytes % (Manual) 2 L Eosinophils % 0.1 D Eosinophils % (Manual) 0.0 D Basophils % 0.3 Basophils % (Manual) 1.0 D Myelocytes % (Man) 1 D Promyelocytes % (Man) 0 Blast Cells % (Manual) 0 Nucleated RBC % 1 H Metamyelocytes 0 D Hypochromia 1+ Platelet Estimate Increased Platelet Comment Present Polychromasia 0 Poikilocytosis 0 Anisocytosis 1+ Microcytosis 1+ Macrocytosis 1+ Ovalocytes Stomatocytes Fragmented RBCs Anticoagulation Therapy Puncture Site Patient Temperature ABG pH ABG pCO2 ABG pO2 ABG HCO3 ABG O2 Sat (Measured) ABG O2 Content ABG Base Excess Sai Test Patient On Oxygen O2 Delivery Device Oxygen Flow Rate Vent Mode Vent Rate Mechanical Rate PEEP Pressure Support Vent Sodium 141 Potassium 4.6 Chloride 104 Carbon Dioxide 26 Anion Gap 12 BUN 43.8 H Creatinine 2.8 H Est GFR (CKD-EPI)AfAm 18.25 Est GFR (CKD-EPI)NonAf 15.75 POC Glucometer 287 Random Glucose 336 H Calcium 8.7 Phosphorus 3.7 Magnesium 2.3 Total Bilirubin 0.4 AST 44 H ALT 21 Alkaline Phosphatase 199 H Creatine Kinase 44 Troponin I 0.41 H Total Protein 6.7 Albumin 2.4 L 02/21/20 11:42 WBC RBC Hgb Hct MCV MCH MCHC RDW Plt Count MPV Absolute Neuts (auto) Total Counted Neutrophils % Neutrophils % (Manual) Band Neutrophils % Lymphocytes % Lymphocytes % (Manual) Monocytes % Monocytes % (Manual) Eosinophils % Eosinophils % (Manual) Basophils % Basophils % (Manual) Myelocytes % (Man) Promyelocytes % (Man) Blast Cells % (Manual) Nucleated RBC % Metamyelocytes Hypochromia Platelet Estimate Platelet Comment Polychromasia Poikilocytosis Anisocytosis Microcytosis Macrocytosis Ovalocytes Stomatocytes Fragmented RBCs Anticoagulation Therapy Puncture Site Patient Temperature ABG pH ABG pCO2 ABG pO2 ABG HCO3 ABG O2 Sat (Measured) ABG O2 Content ABG Base Excess Sai Test Patient On Oxygen O2 Delivery Device Oxygen Flow Rate Vent Mode Vent Rate Mechanical Rate PEEP Pressure Support Vent Sodium Potassium Chloride Carbon Dioxide Anion Gap BUN Creatinine Est GFR (CKD-EPI)AfAm Est GFR (CKD-EPI)NonAf POC Glucometer 207 Random Glucose Calcium Phosphorus Magnesium Total Bilirubin AST ALT Alkaline Phosphatase Creatine Kinase Troponin I Total Protein Albumin Problem List - Problems (1) Altered mental status Code(s): R41.82 - ALTERED MENTAL STATUS, UNSPECIFIED (2) Pneumonia, aspiration Code(s): J69.0 - PNEUMONITIS DUE TO INHALATION OF FOOD AND VOMIT (3) Stroke Code(s): I63.9 - CEREBRAL INFARCTION, UNSPECIFIED (4) Hypertension Code(s): I10 - ESSENTIAL (PRIMARY) HYPERTENSION (5) ESRD on dialysis Code(s): N18.6 - END STAGE RENAL DISEASE; Z99.2 - DEPENDENCE ON RENAL DIALYSIS Assessment/Plan Acute Respiratory Failure Acute CVA Pneumonia likely Aspiration ESRD on HD HTN DM Hyperlipidemia h/o CVA - AC Mode of vent - Pulmonary toilet - ABX coverage - Follow CXR - Pressors to maintain MAP > 65 - BD TX and short coarse of steroids - HD per Renal - Aspiration precautions - VTE prophylaxis - Grave overall prognosis : continue GOC discussions with the family : Unfortunately unrealistic about her outcome : Should ideally be compassionate wean Dr Alonzo Critical care time spent in reviewing chart, evaluating patient and formulating plan - 36 minutes.
--- NOTE | 2020-02-21 17:02 | PROC ---
Central Line Insertion Indication: Poor Venous Access, Sepsis, Vasopressor Risks and Benefits Explained: Yes Consent on Chart: Yes Central Line: Triple Lumen Catheter Anesthesia: other Sterile Technique: Yes Ultrasound Guided Assistance: Yes Position: Left Internal Jugular Post Insertion: Yes: Bilateral Breath Sounds, Bilateral Chest Expansion, Chest X-Ray Ordered Sterile Dressing Applied: Yes
--- NOTE | 2020-02-21 18:13 | PN ---
Progress Note (short form) - Note Progress Note: 74 year old female brought patient from [place] for unreponsivness for two days prior to admission. Patient has history of stroke three months ago and has been decline since than. Patient has no seizure, she has high wbc and suspected to have aspiration pneumonia. Patient has large right mca cerebral edema. Patient has detiorated and developed hypoxia andshe got intubated and trasnferred to icu, patient is sedated and intubated. NEUROLOGICAL EXAMINATION Patient is comatosed, and wirhdraws to pain neck is supple pupils is small sluggsihly reactive gag and corneal reflex is present bp is maintained ct head showed large right mca cerebral edema with minimal hemorrhagic transformation repeat ct head done on january 28 Assessment/Plan 1. 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 Plan: continue supportive care - Id following for high wbc and aspiration pneumonia - prongosis is not good continue on ventilator - 35 min cc time. Pippa sol so much Norman Plascencia MD
[2020-02-22] MEDS ORDERED: PIPERACILLIN/TAZOBACTAM 2.25 GM VIAL IVPB ONE ×2 (00:28→09:28)
[2020-02-22] MEDS ORDERED: DEXTROSE 5%-WATER - 50 ML IVPB ONE ×3 (00:29→09:28)
[2020-02-22] MEDS: INSULIN SLIDING SCALE (NOVOLOG) 1 VIAL SQ SCH ×4 (00:45→17:54)
[2020-02-22] MEDS: MIDAZOLAM IN 0.9 % SOD.CHLORID 100 MG/100 ML PLAST..BAG IVPB SCH ×2 (01:52→11:30)
[2020-02-22] MEDS: methylPREDNISolone NA SUCC 40 MG/1 ML VIAL IVPUSH SCH ×4 (02:28→21:06)
[2020-02-22] MEDS: PIPERACILLIN/TAZOB 2.25 GM 2.25 GM in DEXTROSE 5%-WATER - 50 ML IVPB SCH ×2 (02:28→09:43)
[2020-02-22 06:26] LABS: ARTERIAL BLD GAS O2 SATURATION 97.8 mmHg (95-98); ARTERIAL BLOOD GAS BASE EXCESS -2.6 mmol/L (-2-2); ARTERIAL BLOOD GAS PO2 108.1 mmHg (80-100); ARTERIAL BLOOD GAS pH 7.368 (7.350-7.450)
[2020-02-22 06:31] LABS: ALLENS TEST POSITIVE; VENT MODE A/C
[2020-02-22 06:32] LABS: VENT RATE 14
[2020-02-22 06:50] LABS: BASO % 0.2 % (0-2.0); HEMATOCRIT 23.2 % (32.4-45.2); HEMOGLOBIN 7.2 GM/dL (10.7-15.3); LYMPH % 2.8 % (8-40); MCH 29.3 pg (25.7-33.7); MCHC 31.1 g/dl (32.0-36.0); MEAN CELL VOLUME 94.1 fl (80-96); MEAN PLT VOLUME 9.6 fl (7.5-11.1); MONO % 1.3 % (3.8-10.2); NEUT % 95.7 % (42.8-82.8); PLATELET COUNT 732 K/MM3 (134-434); RBC 2.46 M/mm3 (3.60-5.2); RDW 16.8 % (11.6-15.6); WHITE BLOOD COUNT 29.8 K/mm3 (4.0-10.0)
[2020-02-22 06:55] LABS: BILIRUBIN,TOTAL 0.3 mg/dL (0.2-1); BLOOD UREA NITROGEN 57.2 mg/dL (7-18); CALCIUM 8.6 mg/dL (8.5-10.1); CREATININE 3.3 mg/dL (0.55-1.3); MAGNESIUM 2.3 mg/dL (1.8-2.4); PHOSPHOROUS 4.5 mg/dL (2.5-4.9); POTASSIUM 4.7 mmol/L (3.5-5.1); TOT PROT 6.2 g/dl (6.4-8.2)
[2020-02-22 08:42] LABS: ANISOCYTOSIS 2+; MACROCYTOSIS 0; PLATELET ESTIMATE INCREASED
[2020-02-22] MEDS ORDERED: cefTRIAXone SODIUM 1 GM VIAL ONE (09:27)
[2020-02-22] MEDS ORDERED: PT OWN MED DRAWER 7, Y5N ONE (09:27)
[2020-02-22] MEDS: PANTOPRAZOLE SODIUM 40 MG VIAL IVPUSH SCH (09:42)
[2020-02-22] MEDS: CEFTRIAXONE 1 GM in DEXTROSE 5%-WATER - 50 ML IVPB SCH (09:43)
[2020-02-22] MEDS: COLLAGENASE CLOSTRIDIUM HIST. 30 GRAMS TUBE TP SCH (09:48)
[2020-02-22] MEDS: FENTANYL IVPB 500 MCG/100 ML BAG IVPB SCH ×2 (10:24→21:07)
--- NOTE | 2020-02-22 10:48 | PN ---
Progress Note (short form) - Note Progress Note: RENAL remains intubated comatose Last Vital Signs Temp Pulse Resp BP Pulse Ox 98.1 F 73 14 113/59 L 100 02/22/20 10:00 02/22/20 10:00 02/22/20 10:00 02/22/20 10:00 02/22/20 07:[address] lungs bilat breath sounds cvs s1s2 rr +DAVE abd soft ext upper ext edema neuro occasionally opens eyes, otherwise no response Current Medications Generic Name Dose Route Start Last Admin Trade Name Freq PRN Reason Stop Dose Admin Acetaminophen 650 mg 02/19/20 20:56 02/20/20 21:06 Tylenol Oral Solution - GT 650 mg Q6H PRN Administration PAIN LEVEL 4 - 6 Albuterol/Ipratropium 1 amp 02/20/20 14:33 Duoneb - NEB Q4H PRN SHORTNESS OF BREATH Amlodipine Besylate 10 mg 02/09/20 10:00 02/20/20 10:21 Norvasc - NGT Not Given DAILY JOSE Collagenase 1 applic 02/09/20 10:00 02/22/20 09:48 Santyl - TP 1 applic DAILY JOSE Administration Protocol Guaifenesin 10 ml 02/19/20 20:56 02/21/20 20:49 Robitussin - GT 10 ml Q4H PRN Administration COUGH Ceftriaxone Sodium 1 gm/ 50 mls @ 100 mls/hr 02/17/20 10:00 02/22/20 09:43 Dextrose IVPB 100 mls/hr DAILY JOSE Administration Protocol Midazolam HCl 100 mg in 100 mls @ 1 mls/hr 02/20/20 11:30 02/22/20 01:52 Midazolam 100mg/100ml-0.9%Nacl IVPB 2 mg/hr TITR JOSE 2 mls/hr Administration Protocol 1 MG/HR Sodium Chloride 250 mls @ 3,000 mls/hr 02/20/20 12:37 Normal Saline - IV 02/21/20 12:37 PRN PRN Hypotension during Dialysis Piperacillin Sod/Tazobactam 50 mls @ 100 mls/hr 02/20/20 14:45 02/22/20 09:43 Sod 2.25 gm/ Dextrose IVPB 100 mls/hr Q8H-IV JOSE Administration Protocol Norepinephrine Bitartrate 8,000 mcg in 500 mls @ 18.75 mls/hr 02/20/20 15:15 02/21/20 21:06 Levophed Bag IVPB 4 mcg/min TITR JOSE 15 mls/hr Titration Protocol 5 MCG/MIN Fentanyl 500 mcg in 100 mls @ 9.435 mls/hr 02/20/20 21:00 02/22/20 10:24 Sublimaze Ivpb IVPB 0.53 mcg/kg/hr TITR JOSE 5 mls/hr Administration 1 MCG/KG/HR Insulin Aspart 1 vial 02/09/20 12:00 02/22/20 06:19 Novolog Vial Sliding Scale - SQ 4 units Q6HPO JOSE Administration Protocol Methylprednisolone Sodium Succinate 40 mg 02/21/20 09:00 02/22/20 09:43 Solu-Medrol - IVPUSH 40 mg Q6H-IV JOSE Administration Metoprolol Tartrate 25 mg 02/19/20 22:00 02/20/20 10:20 Lopressor - GT Not Given BID JOSE Pantoprazole Sodium 40 mg 02/21/20 10:00 02/22/20 09:42 Protonix Iv IVPUSH 40 mg DAILY JOSE Administration CBC, BMP 02/22/20 05:00 02/22/20 05:00 IMPRESSION esrd htn s/p cva x 2- hypokalemia covid 19 neg hypernatremia resolved leukocytosis proteus bacetermia PLAN abx per ID continue vent support will dialyze tomorrow. does not seem to require urgent hd would ask for palliative care follow up- MV
--- NOTE | 2020-02-22 11:27 | PN ---
Progress Note (short form) - Note Progress Note: s/p rapid response pt is in ICU now intubated for respiratory failure Vital Signs - 24 hr 02/21/20 02/21/20 02/21/20 12:00 12:30 13:00 Temperature Pulse Rate 76 76 Respiratory 15 15 15 Rate Blood Pressure 106/52 L 109/56 L O2 Sat by Pulse 97 97 97 Oximetry (%) 02/21/20 02/21/20 02/21/20 14:00 15:00 16:00 Temperature 98.6 F 98.7 F Pulse Rate 73 73 74 Respiratory 15 15 14 Rate Blood Pressure 108/57 L 94/53 L 106/57 L O2 Sat by Pulse 97 96 97 Oximetry (%) 02/21/20 02/21/20 02/21/20 16:34 17:00 18:00 Temperature 97.8 F Pulse Rate 72 73 Respiratory 14 14 14 Rate Blood Pressure 82/51 L 106/58 L O2 Sat by Pulse 97 95 97 Oximetry (%) 02/21/20 02/21/20 02/21/20 20:00 20:12 21:00 Temperature Pulse Rate 74 74 Respiratory 14 14 14 Rate Blood Pressure 99/55 L 82/55 L O2 Sat by Pulse 96 96 100 Oximetry (%) 02/21/20 02/21/20 02/22/20 22:00 23:00 00:00 Temperature 97.6 F Pulse Rate 70 72 73 Respiratory 14 14 14 Rate Blood Pressure 96/56 L 105/57 L 110/69 O2 Sat by Pulse 100 100 99 Oximetry (%) 02/22/20 02/22/20 02/22/20 01:00 02:00 03:00 Temperature 97.5 F L Pulse Rate 73 72 66 Respiratory 14 14 14 Rate Blood Pressure 119/70 115/63 114/63 O2 Sat by Pulse 100 100 100 Oximetry (%) 02/22/20 02/22/20 02/22/20 04:00 04:30 05:00 Temperature Pulse Rate 68 79 Respiratory 14 14 14 Rate Blood Pressure 114/62 112/58 L O2 Sat by Pulse 100 100 100 Oximetry (%) 02/22/20 02/22/20 02/22/20 06:00 07:00 07:47 Temperature 97.6 F Pulse Rate 79 77 Respiratory 14 14 14 Rate Blood Pressure 110/63 111/66 O2 Sat by Pulse 100 100 100 Oximetry (%) 02/22/20 02/22/20 02/22/20 08:00 08:21 08:40 Temperature Pulse Rate 79 79 Respiratory 13 13 14 Rate Blood Pressure 112/62 112/62 O2 Sat by Pulse 97 Oximetry (%) 02/22/20 10:00 Temperature 98.1 F Pulse Rate 73 Respiratory 14 Rate Blood Pressure 113/59 L O2 Sat by Pulse Oximetry (%) Current Medications Generic Name Dose Route Start Last Admin Trade Name Freq PRN Reason Stop Dose Admin Acetaminophen 650 mg 02/19/20 20:56 02/20/20 21:06 Tylenol Oral Solution - GT 650 mg Q6H PRN Administration PAIN LEVEL 4 - 6 Albuterol/Ipratropium 1 amp 02/20/20 14:33 Duoneb - NEB Q4H PRN SHORTNESS OF BREATH Amlodipine Besylate 10 mg 02/09/20 10:00 02/20/20 10:21 Norvasc - NGT Not Given DAILY JOSE Collagenase 1 applic 02/09/20 10:00 02/22/20 09:48 Santyl - TP 1 applic DAILY JOSE Administration Protocol Guaifenesin 10 ml 02/19/20 20:56 02/21/20 20:49 Robitussin - GT 10 ml Q4H PRN Administration COUGH Ceftriaxone Sodium 1 gm/ 50 mls @ 100 mls/hr 02/17/20 10:00 02/22/20 09:43 Dextrose IVPB 100 mls/hr DAILY JOSE Administration Protocol Midazolam HCl 100 mg in 100 mls @ 1 mls/hr 02/20/20 11:30 02/22/20 01:52 Midazolam 100mg/100ml-0.9%Nacl IVPB 2 mg/hr TITR JOSE 2 mls/hr Administration Protocol 1 MG/HR Sodium Chloride 250 mls @ 3,000 mls/hr 02/20/20 12:37 Normal Saline - IV 02/21/20 12:37 PRN PRN Hypotension during Dialysis Piperacillin Sod/Tazobactam 50 mls @ 100 mls/hr 02/20/20 14:45 02/22/20 09:43 Sod 2.25 gm/ Dextrose IVPB 100 mls/hr Q8H-IV JOSE Administration Protocol Norepinephrine Bitartrate 8,000 mcg in 500 mls @ 18.75 mls/hr 02/20/20 15:15 02/21/20 21:06 Levophed Bag IVPB 4 mcg/min TITR JOSE 15 mls/hr Titration Protocol 5 MCG/MIN Fentanyl 500 mcg in 100 mls @ 9.435 mls/hr 02/20/20 21:00 02/22/20 10:24 Sublimaze Ivpb IVPB 0.53 mcg/kg/hr TITR JOSE 5 mls/hr Administration 1 MCG/KG/HR Insulin Aspart 1 vial 02/09/20 12:00 02/22/20 06:19 Novolog Vial Sliding Scale - SQ 4 units Q6HPO JOSE Administration Protocol Methylprednisolone Sodium Succinate 40 mg 02/21/20 09:00 02/22/20 09:43 Solu-Medrol - IVPUSH 40 mg Q6H-IV JOSE Administration Metoprolol Tartrate 25 mg 02/19/20 22:00 02/20/20 10:20 Lopressor - GT Not Given BID JOSE Pantoprazole Sodium 40 mg 02/21/20 10:00 02/22/20 09:42 Protonix Iv IVPUSH 40 mg DAILY JOSE Administration Laboratory Results - last 24 hr 02/21/20 02/21/20 02/22/20 11:42 18:17 00:44 WBC RBC Hgb Hct MCV MCH MCHC RDW Plt Count MPV Absolute Neuts (auto) Neutrophils % Neutrophils % (Manual) Band Neutrophils % Lymphocytes % Lymphocytes % (Manual) Monocytes % Monocytes % (Manual) Eosinophils % Eosinophils % (Manual) Basophils % Basophils % (Manual) Myelocytes % (Man) Promyelocytes % (Man) Blast Cells % (Manual) Nucleated RBC % Metamyelocytes Hypochromia Platelet Estimate Polychromasia Poikilocytosis Anisocytosis Microcytosis Macrocytosis Stomatocytes Anticoagulation Therapy Puncture Site Patient Temperature ABG pH ABG pCO2 ABG pO2 ABG HCO3 ABG O2 Sat (Measured) ABG O2 Content ABG Base Excess Sai Test Patient On Oxygen O2 Delivery Device Oxygen Flow Rate Vent Mode Vent Rate Mechanical Rate PEEP Pressure Support Vent Sodium Potassium Chloride Carbon Dioxide Anion Gap BUN Creatinine Est GFR (CKD-EPI)AfAm Est GFR (CKD-EPI)NonAf POC Glucometer 207 226 242 Random Glucose Calcium Phosphorus Magnesium Total Bilirubin AST ALT Alkaline Phosphatase Total Protein Albumin 02/22/20 02/22/20 02/22/20 05:00 05:00 05:45 WBC 29.8 H RBC 2.46 L Hgb 7.2 L Hct 23.2 L MCV 94.1 MCH 29.3 MCHC 31.1 L RDW 16.8 H Plt Count 732 H MPV 9.6 Absolute Neuts (auto) 28.5 H Neutrophils % 95.7 H Neutrophils % (Manual) 91.8 H Band Neutrophils % 0.0 Lymphocytes % 2.8 L D Lymphocytes % (Manual) 5.1 L D Monocytes % 1.3 L Monocytes % (Manual) 3 L Eosinophils % 0.0 D Eosinophils % (Manual) 0.0 Basophils % 0.2 Basophils % (Manual) 0.0 Myelocytes % (Man) 0 D Promyelocytes % (Man) 0 Blast Cells % (Manual) 0 Nucleated RBC % 0 Metamyelocytes 0 Hypochromia 0 Platelet Estimate Increased Polychromasia 1+ Poikilocytosis 1+ Anisocytosis 2+ Microcytosis 2+ Macrocytosis 0 Stomatocytes 1+ Anticoagulation Therapy No Result Required. Puncture Site Right radial Patient Temperature No Result Required. ABG pH 7.368 ABG pCO2 40.00 ABG pO2 108.1 H ABG HCO3 22.5 ABG O2 Sat (Measured) 97.8 ABG O2 Content No Result Required. ABG Base Excess -2.6 L Sai Test Positive Patient On Oxygen Yes O2 Delivery Device Vent Oxygen Flow Rate 100% Vent Mode A/c Vent Rate 14 Mechanical Rate Yes PEEP 10.0 Pressure Support Vent 450 Sodium 139 Potassium 4.7 Chloride 102 Carbon Dioxide 25 Anion Gap 12 BUN 57.2 H Creatinine 3.3 H Est GFR (CKD-EPI)AfAm 14.96 Est GFR (CKD-EPI)NonAf 12.91 POC Glucometer Random Glucose 313 H Calcium 8.6 Phosphorus 4.5 Magnesium 2.3 Total Bilirubin 0.3 AST 18 ALT 17 Alkaline Phosphatase 166 H Total Protein 6.2 L Albumin 2.0 L 20 06:17 WBC RBC Hgb Hct MCV MCH MCHC RDW Plt Count MPV Absolute Neuts (auto) Neutrophils % Neutrophils % (Manual) Band Neutrophils % Lymphocytes % Lymphocytes % (Manual) Monocytes % Monocytes % (Manual) Eosinophils % Eosinophils % (Manual) Basophils % Basophils % (Manual) Myelocytes % (Man) Promyelocytes % (Man) Blast Cells % (Manual) Nucleated RBC % Metamyelocytes Hypochromia Platelet Estimate Polychromasia Poikilocytosis Anisocytosis Microcytosis Macrocytosis Stomatocytes Anticoagulation Therapy Puncture Site Patient Temperature ABG pH ABG pCO2 ABG pO2 ABG HCO3 ABG O2 Sat (Measured) ABG O2 Content ABG Base Excess Sai Test Patient On Oxygen O2 Delivery Device Oxygen Flow Rate Vent Mode Vent Rate Mechanical Rate PEEP Pressure Support Vent Sodium Potassium Chloride Carbon Dioxide Anion Gap BUN Creatinine Est GFR (CKD-EPI)AfAm Est GFR (CKD-EPI)NonAf POC Glucometer 271 Random Glucose Calcium Phosphorus Magnesium Total Bilirubin AST ALT Alkaline Phosphatase Total Protein Albumin S1 S2 RRR left side edematous Lungs decreased Abd- soft, NT, GT+ No edema intubated ,sedated ct head showed large right mca cerebral edema with minimal hemorrhagic transformation repeat ct head done on january 28 A/P acute respiratory failure fever 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 ESRD on HD aspiration pneumonia acute respiratory failure -proteus in blood sepsis -- iv antibiotics -- pt is FULL CODE -- continue with current care -- poor prognosis -- vent management per ICU -- pressor support as needed Problem List - Problems (1) Altered mental status Code(s): R41.82 - ALTERED MENTAL STATUS, UNSPECIFIED (2) Lactic acidosis Code(s): E87.2 - ACIDOSIS (3) Pneumonia, aspiration Code(s): J69.0 - PNEUMONITIS DUE TO INHALATION OF FOOD AND VOMIT (4) Stroke Code(s): I63.9 - CEREBRAL INFARCTION, UNSPECIFIED (5) ESRD on dialysis Code(s): N18.6 - END STAGE RENAL DISEASE; Z99.2 - DEPENDENCE ON RENAL DIALYSIS (6) Hypertension Code(s): I10 - ESSENTIAL (PRIMARY) HYPERTENSION
--- NOTE | 2020-02-22 13:50 | PN ---
Progress Note (short form) - Note Progress Note: 74 year old female brought patient from [place] for unreponsivness for two days prior to admission. Patient has history of stroke three months ago and has been decline since than. Patient has no seizure, she has high wbc and suspected to have aspiration pneumonia. Patient has large right mca cerebral edema. Patient has detiorated and developed hypoxia andshe got intubated and trasnferred to icu, patient is sedated and intubated. there has not been an detioration or improvement in last 24 hours NEUROLOGICAL EXAMINATION Patient is comatosed, and wirhdraws to pain neck is supple pupils is small sluggsihly reactive gag and corneal reflex is present bp is maintained ct head showed large right mca cerebral edema with minimal hemorrhagic transformation repeat ct head done on january 28 Assessment/Plan 1. 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 Pippa sol so much Norman Plascencia MD
--- NOTE | 2020-02-22 14:29 | PN ---
Progress Note, Physician Chief Complaint: Pt unresponsive; intubated.On norepinephrine for BP support. History of Present Illness: Ms. Galeas is a 74 year old black female with a significant past medical history of ESRD, hypertension, DMII, GERD, HTN, and HL, who presents to the ED, BIBA, and unresponsive x2 days. ESRD (on HD), hypertension, DMII, GERD, HTN, HL, aphasia and stroke [address] showed (01/13) right parietal, occipital and temporal lobe suggestive of acute CVA; no acute intracranial bleed ; Prolonged ICU course complicated by Acute worsening of chronic anemia, likely from stomal bleed. Elevated TNIs most likely anemia- induced ischemia. - Current Medication List Current Medications: Active Medications Acetaminophen (Tylenol Oral Solution -) 650 mg GT Q6H PRN PRN Reason: PAIN LEVEL 4 - 6 Last Admin: 02/20/20 21:06 Dose: 650 mg Documented by: Albuterol/Ipratropium (Duoneb -) 1 amp NEB Q4H PRN PRN Reason: SHORTNESS OF BREATH Amlodipine Besylate (Norvasc -) 10 mg NGT DAILY JOSE Last Admin: 02/20/20 10:21 Dose: Not Given Documented by: Collagenase (Santyl -) 1 applic TP DAILY JOSE; Protocol Last Admin: 02/22/20 09:48 Dose: 1 applic Documented by: Guaifenesin (Robitussin -) 10 ml GT Q4H PRN PRN Reason: COUGH Last Admin: 02/21/20 20:49 Dose: 10 ml Documented by: Ceftriaxone Sodium 1 gm/ (Dextrose) 50 mls @ 100 mls/hr IVPB DAILY JOSE; Protocol Last Admin: 02/22/20 09:43 Dose: 100 mls/hr Documented by: Midazolam HCl (Midazolam 100mg/100ml-0.9%Nacl) 100 mg in 100 mls @ 1 mls/hr IVPB TITR JOSE; Protocol Last Admin: 02/22/20 01:52 Dose: 2 mg/hr, 2 mls/hr Documented by: Sodium Chloride (Normal Saline -) 250 mls @ 3,000 mls/hr IV PRN PRN PRN Reason: Hypotension during Dialysis Stop: 02/21/20 12:37 Piperacillin Sod/Tazobactam (Sod 2.25 gm/ Dextrose) 50 mls @ 100 mls/hr IVPB Q8H-IV JOSE; Protocol Last Admin: 02/22/20 09:43 Dose: 100 mls/hr Documented by: Norepinephrine Bitartrate (Levophed Bag) 8,000 mcg in 500 mls @ 18.75 mls/hr IVPB TITR JOSE; Protocol Last Titration: 02/21/20 21:06 Dose: 4 mcg/min, 15 mls/hr Documented by: Fentanyl (Sublimaze Ivpb) 500 mcg in 100 mls @ 9.435 mls/hr IVPB TITR JOSE Last Admin: 02/22/20 10:24 Dose: 0.53 mcg/kg/hr, 5 mls/hr Documented by: Insulin Aspart (Novolog Vial Sliding Scale -) 1 vial SQ Q6HPO JOSE; Protocol Last Admin: 02/22/20 11:44 Dose: 5 units Documented by: Methylprednisolone Sodium Succinate (Solu-Medrol -) 40 mg IVPUSH Q6H-IV JOSE Last Admin: 02/22/20 14:17 Dose: 40 mg Documented by: Metoprolol Tartrate (Lopressor -) 25 mg GT BID JOSE Last Admin: 02/20/20 10:20 Dose: Not Given Documented by: Pantoprazole Sodium (Protonix Iv) 40 mg IVPUSH DAILY JOSE Last Admin: 02/22/20 09:42 Dose: 40 mg Documented by: - Objective Vital Signs: Vital Signs Temperature 98.3 F 02/22/20 14:00 Pulse Rate 73 02/22/20 14:00 Respiratory Rate 14 02/22/20 14:00 Blood Pressure 111/60 02/22/20 14:00 O2 Sat by Pulse Oximetry (%) 97 02/22/20 12:35 Constitutional: Yes: Thin, Other Cardiovascular: Yes: S1, S2 Respiratory: Yes: Diminished, Mechanically Ventilated Genitourinary: Yes: Vasquez Present. No: Anuria Musculoskeletal: Yes: Muscle Weakness Extremities: Yes: Cool Edema: Yes Edema: LLE: Trace, RLE: Trace Peripheral Pulses WNL: No Peripheral Pulses: Left Doralis Pedis: 1+, Right Dorsalis Pedis: 1+ Integumentary: Yes: Venous Stasis Changes Neurological: Yes: Unresponsive Psychiatric: Yes: Other Labs: CBC, BMP 02/22/20 05:00 02/22/20 05:00 INR, PTT INR 1.56 (0.83-1.09) H 02/02/20 20:30 Fibrinogen 448.0 mg/dL (238-498) 02/05/20 06:00 - ....Imaging Chest X-ray: Image Reviewed EKG: Image Reviewed Assessment/Plan Hypoxemia-->transfer to ICU Intubated/ mechanically ventilated leukocytosis 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 New LBBB 7-25-20 s/p PEG Nl EF Moderate MR moderate PHT Plan: Remains intubated, ventilated; on norepinephrine for pressure support. No obvious response. EKG: NSR; LBBB TNI , once >4.0, has decreased to 0.4. keep HCT around 30% Total cholesterol 113 mg/Dl. Is and Os Continued poor prognosis CC time spent: 35 minutes
--- NOTE | 2020-02-22 14:55 | PN ---
Progress Note, Physician Chief Complaint: INTUBATED IN ICU BREATHING NON-LABORED BC PROTEUS SP. REPEAT BC NO GROWTH CT A/P CHOLELITHIASIS - Current Medication List Current Medications: Active Medications Acetaminophen (Tylenol Oral Solution -) 650 mg GT Q6H PRN PRN Reason: PAIN LEVEL 4 - 6 Last Admin: 02/20/20 21:06 Dose: 650 mg Documented by: Albuterol/Ipratropium (Duoneb -) 1 amp NEB Q4H PRN PRN Reason: SHORTNESS OF BREATH Amlodipine Besylate (Norvasc -) 10 mg NGT DAILY JOSE Last Admin: 02/20/20 10:21 Dose: Not Given Documented by: Collagenase (Santyl -) 1 applic TP DAILY JOSE; Protocol Last Admin: 02/22/20 09:48 Dose: 1 applic Documented by: Guaifenesin (Robitussin -) 10 ml GT Q4H PRN PRN Reason: COUGH Last Admin: 02/21/20 20:49 Dose: 10 ml Documented by: Midazolam HCl (Midazolam 100mg/100ml-0.9%Nacl) 100 mg in 100 mls @ 1 mls/hr IVPB TITR JOSE; Protocol Last Admin: 02/22/20 01:52 Dose: 2 mg/hr, 2 mls/hr Documented by: Sodium Chloride (Normal Saline -) 250 mls @ 3,000 mls/hr IV PRN PRN PRN Reason: Hypotension during Dialysis Stop: 02/21/20 12:37 Norepinephrine Bitartrate (Levophed Bag) 8,000 mcg in 500 mls @ 18.75 mls/hr IVPB TITR JSOE; Protocol Last Titration: 02/21/20 21:06 Dose: 4 mcg/min, 15 mls/hr Documented by: Fentanyl (Sublimaze Ivpb) 500 mcg in 100 mls @ 9.435 mls/hr IVPB TITR JOSE Last Admin: 02/22/20 10:24 Dose: 0.53 mcg/kg/hr, 5 mls/hr Documented by: Insulin Aspart (Novolog Vial Sliding Scale -) 1 vial SQ Q6HPO JOSE; Protocol Last Admin: 02/22/20 11:44 Dose: 5 units Documented by: Methylprednisolone Sodium Succinate (Solu-Medrol -) 40 mg IVPUSH Q6H-IV JOSE Last Admin: 02/22/20 14:17 Dose: 40 mg Documented by: Metoprolol Tartrate (Lopressor -) 25 mg GT BID [facility] Last Admin: 02/20/20 10:20 Dose: Not Given Documented by: Pantoprazole Sodium (Protonix Iv) 40 mg IVPUSH DAILY [facility] Last Admin: 02/22/20 09:42 Dose: 40 mg Documented by: - Objective Vital Signs: Vital Signs Temperature 98.3 F 02/22/20 14:00 Pulse Rate 73 02/22/20 14:00 Respiratory Rate 14 02/22/20 14:00 Blood Pressure 111/60 02/22/20 14:00 O2 Sat by Pulse Oximetry (%) 97 02/22/20 12:35 Constitutional: Yes: No Distress Eyes: Yes: Conjunctiva Clear Cardiovascular: Yes: Regular Rate and Rhythm, S1, S2 Respiratory: Yes: Mechanically Ventilated Gastrointestinal: Yes: Normal Bowel Sounds, Soft. No: Tenderness Edema: No Labs: CBC, BMP 02/22/20 05:00 02/22/20 05:00 INR, PTT INR 1.56 (0.83-1.09) H 02/02/20 20:30 Fibrinogen 448.0 mg/dL (238-498) 02/05/20 06:00 Assessment/Plan ACUTE RESP FAILURE R/O HCAP GRAM NEGATIVE BACTEREMIA S/P ACUTE CVA S/P RLL PNEUMONIA ESRD LEUKOCYTOSIS OBS CONTINUE ZOSYN VENTILATORY SUPPORT PROGNOSIS POOR
[2020-02-22] MEDS: NOREPINEPHRINE BITARTRATE 8,000 MCG/500 ML BAG IVPB SCH (15:15)
--- NOTE | 2020-02-22 16:09 | PN ---
Teaching Attending Note Name of Resident: María Lr ATTENDING PHYSICIAN STATEMENT I saw and evaluated the patient. I reviewed the resident's note and discussed the case with the resident. I agree with the resident's findings and plan as documented. SUBJECTIVE: Patient seen and examined in the ICU. Remains intubated and sedated. AC Mode of vent. 90% FiO2. NE @ 6 mcq for hemodynamic support. Intake & Output 02/19/20 02/20/20 02/21/20 02/22/20 23:59 23:59 23:59 23:59 Intake Total 415 365 6585 349 Output Total 8560 Balance 740 -0417 1367 349 Weight 106 lb 4 oz 104 lb 91 lb 93 lb 12.8 oz Last Vital Signs Temp Pulse Resp BP Pulse Ox 98.3 F 75 14 113/64 97 02/22/20 14:00 02/22/20 16:00 02/22/20 16:00 02/22/20 16:00 02/22/20 12:35 Active Medications Acetaminophen (Tylenol Oral Solution -) 650 mg GT Q6H PRN PRN Reason: PAIN LEVEL 4 - 6 Last Admin: 02/20/20 21:06 Dose: 650 mg Documented by: Albuterol/Ipratropium (Duoneb -) 1 amp NEB Q4H PRN PRN Reason: SHORTNESS OF BREATH Amlodipine Besylate (Norvasc -) 10 mg NGT DAILY JOSE Last Admin: 02/20/20 10:21 Dose: Not Given Documented by: Collagenase (Santyl -) 1 applic TP DAILY JOSE; Protocol Last Admin: 02/22/20 09:48 Dose: 1 applic Documented by: Guaifenesin (Robitussin -) 10 ml GT Q4H PRN PRN Reason: COUGH Last Admin: 02/21/20 20:49 Dose: 10 ml Documented by: Midazolam HCl (Midazolam 100mg/100ml-0.9%Nacl) 100 mg in 100 mls @ 1 mls/hr IVPB TITR JOSE; Protocol Last Admin: 02/22/20 01:52 Dose: 2 mg/hr, 2 mls/hr Documented by: Sodium Chloride (Normal Saline -) 250 mls @ 3,000 mls/hr IV PRN PRN PRN Reason: Hypotension during Dialysis Stop: 02/21/20 12:37 Norepinephrine Bitartrate (Levophed Bag) 8,000 mcg in 500 mls @ 18.75 mls/hr IVPB TITR JOSE; Protocol Last Titration: 02/21/20 21:06 Dose: 4 mcg/min, 15 mls/hr Documented by: Fentanyl (Sublimaze Ivpb) 500 mcg in 100 mls @ 9.435 mls/hr IVPB TITR JOSE Last Admin: 02/22/20 10:24 Dose: 0.53 mcg/kg/hr, 5 mls/hr Documented by: Insulin Aspart (Novolog Vial Sliding Scale -) 1 vial SQ Q6HPO JOSE; Protocol Last Admin: 02/22/20 11:44 Dose: 5 units Documented by: Methylprednisolone Sodium Succinate (Solu-Medrol -) 40 mg IVPUSH Q6H-IV JOSE Last Admin: 02/22/20 14:17 Dose: 40 mg Documented by: Metoprolol Tartrate (Lopressor -) 25 mg GT BID [facility] Last Admin: 02/20/20 10:20 Dose: Not Given Documented by: Pantoprazole Sodium (Protonix Iv) 40 mg IVPUSH DAILY [facility] Last Admin: 02/22/20 09:42 Dose: 40 mg Documented by: Constitutional: Yes: Intubated and poorly responsive HENT: Yes: WNL Neck: Yes: WNL Cardiovascular: Yes: Regular Rate and Rhythm, S1, S2 Respiratory: Yes: Vented, bilateral rhonchi: Left > Right Gastrointestinal: Yes: Normal Bowel Sounds, Soft Extremities: Yes: WNL Edema: No Labs: Laboratory Results - last 24 hr 02/21/20 02/22/20 02/22/20 18:17 00:44 05:00 WBC 29.8 H RBC 2.46 L Hgb 7.2 L Hct 23.2 L MCV 94.1 MCH 29.3 MCHC 31.1 L RDW 16.8 H Plt Count 732 H MPV 9.6 Absolute Neuts (auto) 28.5 H Neutrophils % 95.7 H Neutrophils % (Manual) 91.8 H Band Neutrophils % 0.0 Lymphocytes % 2.8 L D Lymphocytes % (Manual) 5.1 L D Monocytes % 1.3 L Monocytes % (Manual) 3 L Eosinophils % 0.0 D Eosinophils % (Manual) 0.0 Basophils % 0.2 Basophils % (Manual) 0.0 Myelocytes % (Man) 0 D Promyelocytes % (Man) 0 Blast Cells % (Manual) 0 Nucleated RBC % 0 Metamyelocytes 0 Hypochromia 0 Platelet Estimate Increased Polychromasia 1+ Poikilocytosis 1+ Anisocytosis 2+ Microcytosis 2+ Macrocytosis 0 Stomatocytes 1+ Anticoagulation Therapy Puncture Site Patient Temperature ABG pH ABG pCO2 ABG pO2 ABG HCO3 ABG O2 Sat (Measured) ABG O2 Content ABG Base Excess Sai Test Patient On Oxygen O2 Delivery Device Oxygen Flow Rate Vent Mode Vent Rate Mechanical Rate PEEP Pressure Support Vent Sodium Potassium Chloride Carbon Dioxide Anion Gap BUN Creatinine Est GFR (CKD-EPI)AfAm Est GFR (CKD-EPI)NonAf POC Glucometer 226 242 Random Glucose Calcium Phosphorus Magnesium Total Bilirubin AST ALT Alkaline Phosphatase Total Protein Albumin 02/22/20 02/22/20 02/22/20 05:00 05:45 06:17 WBC RBC Hgb Hct MCV MCH MCHC RDW Plt Count MPV Absolute Neuts (auto) Neutrophils % Neutrophils % (Manual) Band Neutrophils % Lymphocytes % Lymphocytes % (Manual) Monocytes % Monocytes % (Manual) Eosinophils % Eosinophils % (Manual) Basophils % Basophils % (Manual) Myelocytes % (Man) Promyelocytes % (Man) Blast Cells % (Manual) Nucleated RBC % Metamyelocytes Hypochromia Platelet Estimate Polychromasia Poikilocytosis Anisocytosis Microcytosis Macrocytosis Stomatocytes Anticoagulation Therapy No Result Required. Puncture Site Right radial Patient Temperature No Result Required. ABG pH 7.368 ABG pCO2 40.00 ABG pO2 108.1 H ABG HCO3 22.5 ABG O2 Sat (Measured) 97.8 ABG O2 Content No Result Required. ABG Base Excess -2.6 L Sai Test Positive Patient On Oxygen Yes O2 Delivery Device Vent Oxygen Flow Rate 100% Vent Mode A/c Vent Rate 14 Mechanical Rate Yes PEEP 10.0 Pressure Support Vent 450 Sodium 139 Potassium 4.7 Chloride 102 Carbon Dioxide 25 Anion Gap 12 BUN 57.2 H Creatinine 3.3 H Est GFR (CKD-EPI)AfAm 14.96 Est GFR (CKD-EPI)NonAf 12.91 POC Glucometer 271 Random Glucose 313 H Calcium 8.6 Phosphorus 4.5 Magnesium 2.3 Total Bilirubin 0.3 AST 18 ALT 17 Alkaline Phosphatase 166 H Total Protein 6.2 L Albumin 2.0 L 02/22/20 11:43 WBC RBC Hgb Hct MCV MCH MCHC RDW Plt Count MPV Absolute Neuts (auto) Neutrophils % Neutrophils % (Manual) Band Neutrophils % Lymphocytes % Lymphocytes % (Manual) Monocytes % Monocytes % (Manual) Eosinophils % Eosinophils % (Manual) Basophils % Basophils % (Manual) Myelocytes % (Man) Promyelocytes % (Man) Blast Cells % (Manual) Nucleated RBC % Metamyelocytes Hypochromia Platelet Estimate Polychromasia Poikilocytosis Anisocytosis Microcytosis Macrocytosis Stomatocytes Anticoagulation Therapy Puncture Site Patient Temperature ABG pH ABG pCO2 ABG pO2 ABG HCO3 ABG O2 Sat (Measured) ABG O2 Content ABG Base Excess Sai Test Patient On Oxygen O2 Delivery Device Oxygen Flow Rate Vent Mode Vent Rate Mechanical Rate PEEP Pressure Support Vent Sodium Potassium Chloride Carbon Dioxide Anion Gap BUN Creatinine Est GFR (CKD-EPI)AfAm Est GFR (CKD-EPI)NonAf POC Glucometer 317 Random Glucose Calcium Phosphorus Magnesium Total Bilirubin AST ALT Alkaline Phosphatase Total Protein Albumin Problem List - Problems (1) Altered mental status Code(s): R41.82 - ALTERED MENTAL STATUS, UNSPECIFIED (2) Pneumonia, aspiration Code(s): J69.0 - PNEUMONITIS DUE TO INHALATION OF FOOD AND VOMIT (3) Stroke Code(s): I63.9 - CEREBRAL INFARCTION, UNSPECIFIED (4) Hypertension Code(s): I10 - ESSENTIAL (PRIMARY) HYPERTENSION (5) ESRD on dialysis Code(s): N18.6 - END STAGE RENAL DISEASE; Z99.2 - DEPENDENCE ON RENAL DIALYSIS Assessment/Plan Acute Respiratory Failure Acute CVA Pneumonia likely Aspiration ESRD on HD HTN DM Hyperlipidemia h/o CVA - AC Mode of vent - Pulmonary toilet - ABX coverage - Pressors to maintain MAP > 65 - BD TX and short coarse of steroids - HD per Renal - Aspiration precautions - VTE prophylaxis - Grave overall prognosis : continue GOC discussions with the family : Unf ortunately unrealistic about her outcome : Should ideally be compassionate wean. If family refuses, early Trach once parameters are appropriate Dr Alonzo Critical care time spent in reviewing chart, evaluating patient and formulating plan - 36 minutes.
--- NOTE | 2020-02-22 18:37 | PN ---
Physical Exam: SUBJECTIVE: Patient seen and examined OBJECTIVE: Vital Signs Period Temp Pulse Resp BP Sys/Ramirez Pulse Ox Last 24 Hr 97.5 F-98.3 F 66-79 13-14 82-124/55-70 96-100 GENERAL: The patient is awake, alert, and fully oriented, in no acute distress. HEAD: Normal with no signs of trauma. LUNGS: vent sounds b/l crackles bilaterally, no accessory muscle use. HEART: Regular rate and rhythm, S1, S2 + murmur ABDOMEN: Soft, nondistended, normoactive bowel sounds, no guarding EXTREMITIES: 2+ pulses, warm, well-perfused, no edema. SKIN: Warm, dry, normal turgor, no rashes or lesions noted CBC, BMP 02/22/20 05:00 02/22/20 05:00 Active Medications Generic Name Dose Route Start Last Admin Trade Name Freq PRN Reason Stop Dose Admin Acetaminophen 650 mg 02/19/20 20:56 02/20/20 21:06 Tylenol Oral Solution - GT 650 mg Q6H PRN Administration PAIN LEVEL 4 - 6 Albuterol/Ipratropium 1 amp 02/20/20 14:33 Duoneb - NEB Q4H PRN SHORTNESS OF BREATH Amlodipine Besylate 10 mg 02/09/20 10:00 02/20/20 10:21 Norvasc - NGT Not Given DAILY JOSE Collagenase 1 applic 02/09/20 10:00 02/22/20 09:48 Santyl - TP 1 applic DAILY JOSE Administration Protocol Guaifenesin 10 ml 02/19/20 20:56 02/21/20 20:49 Robitussin - GT 10 ml Q4H PRN Administration COUGH Midazolam HCl 100 mg in 100 mls @ 1 mls/hr 02/20/20 11:30 02/22/20 11:30 Midazolam 100mg/100ml-0.9%Nacl IVPB Not Given TITR JOSE Protocol 1 MG/HR Sodium Chloride 250 mls @ 3,000 mls/hr 02/20/20 12:37 Normal Saline - IV 02/21/20 12:37 PRN PRN Hypotension during Dialysis Norepinephrine Bitartrate 8,000 mcg in 500 mls @ 18.75 mls/hr 02/20/20 15:15 02/22/20 15:15 Levophed Bag IVPB Not Given TITR JOSE Protocol 5 MCG/MIN Fentanyl 500 mcg in 100 mls @ 9.435 mls/hr 02/20/20 21:00 02/22/20 10:24 Sublimaze Ivpb IVPB 0.53 mcg/kg/hr TITR JOSE 5 mls/hr Administration 1 MCG/KG/HR Insulin Aspart 1 vial 02/09/20 12:00 02/22/20 17:54 Novolog Vial Sliding Scale - SQ 5 units Q6HPO JOSE Administration Protocol Methylprednisolone Sodium Succinate 40 mg 02/21/20 09:00 02/22/20 14:17 Solu-Medrol - IVPUSH 40 mg Q6H-IV JOSE Administration Metoprolol Tartrate 25 mg 02/19/20 22:00 02/20/20 10:20 Lopressor - GT Not Given BID JOSE Pantoprazole Sodium 40 mg 02/21/20 10:00 02/22/20 09:42 Protonix Iv IVPUSH 40 mg DAILY JOSE Administration ASSESSMENT/PLAN: 74 year old female w/ PMH of CVA, ESRD on HD, HTN, HLD, DM, sacral ulcer admitted to ICU for acute hypoxic respiratory failure. Neuro CVA -intubated; sedated Cardio HTN. HLD - on levo 8 this am-->5 -maintain MAP>65 -hold antihypertensives ENDO -DM -BGMS ISS ACHS GI abdomen US showed overdistended GB with small stones and sludge; no pericholecystic fluid or wall thickening (seen on prior imaging) -c/w PPI ID -pending cx -c/w [id number] -ID on board Pulm intubated; sedated -repeat CXR improved, ABG reviewed -medrol 40q6H. stress steroids dc 'ed -duoenbs -aspiration precautions Renal ESRD on HD -monitor electrolytes -monitor i's and o's -avoid nephrotoxic agents - renal following f/e/n not on fluids monitor electrolytes Lines R fem line 02/19. will put in IJ today dvt ppx:scds in light of previous bleed code status: full code as per HCP ongoing GOC discussion: palliative care consult and ethics consult placed ATTENDING PHYSICIAN STATEMENT I saw and evaluated the patient. I reviewed the resident's note and discussed the case with the resident. I agree with the resident's findings and plan as documented. SUBJECTIVE: OBJECTIVE: ASSESSMENT AND PLAN:
[2020-02-23] MEDS: INSULIN SLIDING SCALE (NOVOLOG) 1 VIAL SQ SCH ×4 (00:16→18:13)
[2020-02-23] MEDS: methylPREDNISolone NA SUCC 40 MG/1 ML VIAL IVPUSH SCH ×4 (02:08→21:34)
--- NOTE | 2020-02-23 08:29 | PN ---
Physical Exam: SUBJECTIVE: Patient seen and examined at bedside; no acute events overnight spoke to patients daughter yesterday and she is agreeable for trach for her mother; Fio2 decreased to 65% OBJECTIVE: Vital Signs Period Temp Pulse Resp BP Sys/Ramirez Pulse Ox Last 24 Hr 98 F-98.3 F 67-85 14-14 106-136/58-70 97-100 GENERAL: The patient is intubated; sedated.. EYES: PEERLA;EOMI; no scleral icterus . NECK: no JVD; no lymphadenopathy. LUNGS: distant breath sounds at left base HEART: Regular rate and rhythm, S1, S2 without murmur, rub or gallop. ABDOMEN: Soft, NT/ND +BS in all 4 quadrants . EXTREMITIES: 2+ pulses, warm, well-perfused, no edema. NEUROLOGICAL: unable to assess PSYCH: Normal mood, normal affect. SKIN: Warm, dry, normal turgor, no rashes or lesions noted Laboratory Results - last 24 hr 02/22/20 02/22/20 02/22/20 05:00 05:00 11:43 Neutrophils % (Manual) 91.8 H Band Neutrophils % 0.0 Lymphocytes % (Manual) 5.1 L D Monocytes % (Manual) 3 L Eosinophils % (Manual) 0.0 Basophils % (Manual) 0.0 Myelocytes % (Man) 0 D Promyelocytes % (Man) 0 Blast Cells % (Manual) 0 Nucleated RBC % 0 Metamyelocytes 0 Hypochromia 0 Platelet Estimate Increased Polychromasia 1+ Poikilocytosis 1+ Anisocytosis 2+ Microcytosis 2+ Macrocytosis 0 Stomatocytes 1+ Sodium 139 Potassium 4.7 Chloride 102 Carbon Dioxide 25 Anion Gap 12 BUN 57.2 H Creatinine 3.3 H Est GFR (CKD-EPI)AfAm 14.96 Est GFR (CKD-EPI)NonAf 12.91 POC Glucometer 317 Random Glucose 313 H Calcium 8.6 Phosphorus 4.5 Magnesium 2.3 Total Bilirubin 0.3 AST 18 ALT 17 Alkaline Phosphatase 166 H Total Protein 6.2 L Albumin 2.0 L Triglycerides 148 Cholesterol 113 Total LDL Cholesterol 65 HDL Cholesterol 29 L 02/22/20 02/23/20 02/23/20 17:52 01:09 06:24 Neutrophils % (Manual) Band Neutrophils % Lymphocytes % (Manual) Monocytes % (Manual) Eosinophils % (Manual) Basophils % (Manual) Myelocytes % (Man) Promyelocytes % (Man) Blast Cells % (Manual) Nucleated RBC % Metamyelocytes Hypochromia Platelet Estimate Polychromasia Poikilocytosis Anisocytosis Microcytosis Macrocytosis Stomatocytes Sodium Potassium Chloride Carbon Dioxide Anion Gap BUN Creatinine Est GFR (CKD-EPI)AfAm Est GFR (CKD-EPI)NonAf POC Glucometer 314 264 220 Random Glucose Calcium Phosphorus Magnesium Total Bilirubin AST ALT Alkaline Phosphatase Total Protein Albumin Triglycerides Cholesterol Total LDL Cholesterol HDL Cholesterol Active Medications Generic Name Dose Route Start Last Admin Trade Name Freq PRN Reason Stop Dose Admin Acetaminophen 650 mg 02/19/20 20:56 02/20/20 21:06 Tylenol Oral Solution - GT 650 mg Q6H PRN Administration PAIN LEVEL 4 - 6 Albuterol/Ipratropium 1 amp 02/20/20 14:33 Duoneb - NEB Q4H PRN SHORTNESS OF BREATH Amlodipine Besylate 10 mg 02/09/20 10:00 02/20/20 10:21 Norvasc - NGT Not Given DAILY JOSE Collagenase 1 applic 02/09/20 10:00 02/22/20 09:48 Santyl - TP 1 applic DAILY JOSE Administration Protocol Guaifenesin 10 ml 02/19/20 20:56 02/21/20 20:49 Robitussin - GT 10 ml Q4H PRN Administration COUGH Midazolam HCl 100 mg in 100 mls @ 1 mls/hr 02/20/20 11:30 02/22/20 11:30 Midazolam 100mg/100ml-0.9%Nacl IVPB Not Given TITR JOSE Protocol 1 MG/HR Sodium Chloride 250 mls @ 3,000 mls/hr 02/20/20 12:37 Normal Saline - IV 02/21/20 12:37 PRN PRN Hypotension during Dialysis Norepinephrine Bitartrate 8,000 mcg in 500 mls @ 18.75 mls/hr 02/20/20 15:15 02/22/20 15:15 Levophed Bag IVPB Not Given TITR JOSE Protocol 5 MCG/MIN Fentanyl 500 mcg in 100 mls @ 9.435 mls/hr 02/20/20 21:00 02/22/20 21:07 Sublimaze Ivpb IVPB 0.53 mcg/kg/hr TITR JOSE 5 mls/hr Administration 1 MCG/KG/HR Insulin Aspart 1 vial 02/09/20 12:00 02/23/20 06:25 Novolog Vial Sliding Scale - SQ 2 units Q6HPO JOSE Administration Protocol Methylprednisolone Sodium Succinate 40 mg 02/21/20 09:00 02/23/20 02:08 Solu-Medrol - IVPUSH 40 mg Q6H-IV JOSE Administration Metoprolol Tartrate 25 mg 02/19/20 22:00 02/20/20 10:20 Lopressor - GT Not Given BID JOSE Pantoprazole Sodium 40 mg 02/21/20 10:00 02/22/20 09:42 Protonix Iv IVPUSH 40 mg DAILY JOSE Administration ASSESSMENT/PLAN: 74 year old female w/ PMH of CVA, ESRD on HD, HTN, HLD, DM, sacral ulcer admitted to ICU for acute hypoxic respiratory failure. Neuro CVA -intubated; sedated Cardio HTN. HLD - on levo 5 this am -maintain MAP>65 -hold antihypertensives ENDO -DM -BGMS ISS ACHS GI abdomen US showed overdistended GB with small stones and sludge; no pericholecystic fluid or wall thickening (seen on prior imaging) -c/w PPI ID -pending cx -c/w zosyn -ID on board Pulm intubated; sedated -repeat CXR improved, ABG reviewed -medrol 40q6H -duoenbs -aspiration precautions -will consult for trach placement Renal ESRD on HD -monitor electrolytes -monitor i's and o's -avoid nephrotoxic agents - renal following f/e/n not on fluids monitor electrolytes Lines IJ dvt ppx:scds in light of previous bleed; will consult for trach placemente code status: full code as per HCP ongoing GOC discussion: palliative care consult and ethics consult placed family wants trach Problem List - Problems (1) Altered mental status Code(s): R41.82 - ALTERED MENTAL STATUS, UNSPECIFIED (2) Anemia Code(s): D64.9 - ANEMIA, UNSPECIFIED (3) Pneumonia, aspiration Code(s): J69.0 - PNEUMONITIS DUE TO INHALATION OF FOOD AND VOMIT Visit type - Emergency Visit Emergency Visit: Yes ED Registration Date: 01/15/20 Care time: The patient presented to the Emergency Department on the above date and was hospitalized for further evaluation of their emergent condition. - New Patient This patient is new to me today: No - Critical Care Critical Care patient: Yes Total Critical Care Time (in minutes): 35 Critical Care Statement: The care of this patient involved high complexity decision making to prevent further life threatening deterioration of the patient's condition and/or to evaluate & treat vital organ system(s) failure or risk of failure. - Discharge Referral Physician Referral: Deuce Jimenez MD ([facility]) - Medication Review Med list reviewed for High Risk Meds patients 65 and older: Yes ATTENDING PHYSICIAN STATEMENT I saw and evaluated the patient. I reviewed the resident's note and discussed the case with the resident. I agree with the resident's findings and plan as documented. SUBJECTIVE: OBJECTIVE: ASSESSMENT AND PLAN:
[2020-02-23] MEDS: PANTOPRAZOLE SODIUM 40 MG VIAL IVPUSH SCH (09:47)
[2020-02-23] MEDS: COLLAGENASE CLOSTRIDIUM HIST. 30 GRAMS TUBE TP SCH (09:47)
--- NOTE | 2020-02-23 10:08 | PN ---
Progress Note, Physician History of Present Illness: patient seen and examined in ICU. Chart is reviewed events noted Intubated Unresponsive - Current Medication List Current Medications: Active Medications Acetaminophen (Tylenol Oral Solution -) 650 mg GT Q6H PRN PRN Reason: PAIN LEVEL 4 - 6 Last Admin: 02/20/20 21:06 Dose: 650 mg Documented by: Albuterol/Ipratropium (Duoneb -) 1 amp NEB Q4H PRN PRN Reason: SHORTNESS OF BREATH Amlodipine Besylate (Norvasc -) 10 mg NGT DAILY JOSE Last Admin: 02/20/20 10:21 Dose: Not Given Documented by: Collagenase (Santyl -) 1 applic TP DAILY JOSE; Protocol Last Admin: 02/23/20 09:47 Dose: 1 applic Documented by: Guaifenesin (Robitussin -) 10 ml GT Q4H PRN PRN Reason: COUGH Last Admin: 02/21/20 20:49 Dose: 10 ml Documented by: Midazolam HCl (Midazolam 100mg/100ml-0.9%Nacl) 100 mg in 100 mls @ 1 mls/hr IVPB TITR JOSE; Protocol Last Admin: 02/22/20 11:30 Dose: Not Given Documented by: Sodium Chloride (Normal Saline -) 250 mls @ 3,000 mls/hr IV PRN PRN PRN Reason: Hypotension during Dialysis Stop: 02/21/20 12:37 Norepinephrine Bitartrate (Levophed Bag) 8,000 mcg in 500 mls @ 18.75 mls/hr IVPB TITR JOSE; Protocol Last Admin: 02/22/20 15:15 Dose: Not Given Documented by: Fentanyl (Sublimaze Ivpb) 500 mcg in 100 mls @ 9.435 mls/hr IVPB TITR JOSE Last Admin: 02/22/20 21:07 Dose: 0.53 mcg/kg/hr, 5 mls/hr Documented by: Insulin Aspart (Novolog Vial Sliding Scale -) 1 vial SQ Q6HPO JOSE; Protocol Last Admin: 02/23/20 06:25 Dose: 2 units Documented by: Methylprednisolone Sodium Succinate (Solu-Medrol -) 40 mg IVPUSH Q6H-IV JOSE Last Admin: 02/23/20 09:47 Dose: 40 mg Documented by: Metoprolol Tartrate (Lopressor -) 25 mg GT BID JOSE Last Admin: 02/20/20 10:20 Dose: Not Given Documented by: Pantoprazole Sodium (Protonix Iv) 40 mg IVPUSH DAILY [facility] Last Admin: 02/23/20 09:47 Dose: 40 mg Documented by: - Objective Vital Signs: Vital Signs Temperature 98 F 02/23/20 06:00 Pulse Rate 76 02/23/20 08:16 Respiratory Rate 14 02/23/20 08:16 Blood Pressure 122/67 02/23/20 06:00 O2 Sat by Pulse Oximetry (%) 100 02/23/20 08:16 Cardiovascular: Yes: Regular Rate and Rhythm Respiratory: Yes: Diminished Gastrointestinal: Yes: Soft, Other (G-tube present) Edema: No Labs: CBC, BMP 02/22/20 05:00 02/22/20 05:00 INR, PTT INR 1.56 (0.83-1.09) H 02/02/20 20:30 Fibrinogen 448.0 mg/dL (238-498) 02/05/20 06:00 Problem List - Problems (1) Stroke Code(s): I63.9 - CEREBRAL INFARCTION, UNSPECIFIED (2) Pneumonia, aspiration Code(s): J69.0 - PNEUMONITIS DUE TO INHALATION OF FOOD AND VOMIT (3) Diabetes Code(s): E11.9 - TYPE 2 DIABETES MELLITUS WITHOUT COMPLICATIONS (4) ESRD on dialysis Code(s): N18.6 - END STAGE RENAL DISEASE; Z99.2 - DEPENDENCE ON RENAL DIALYSIS Assessment/Plan A/P respiratory failure Acute CVA Sepsis leukocytosis aspiration pneumonia ESRD -HD Anemia s/p PEG Continue present care Overall condition poor prognosis grave Abx per i/d dialysis per renal family wants everything to be done Critical care time--- approximately 35 minutes Will continue to follow Discussed with ICU team also
[2020-02-23] MEDS ORDERED: EPOETIN ALFA-EPBX 3,000 UNIT/ML VIAL IVPUSH ONE (10:30)
--- NOTE | 2020-02-23 11:37 | PN ---
Progress Note (short form) - Note Progress Note: RENAL remains intubated comatose Last Vital Signs Temp Pulse Resp BP Pulse Ox 98.2 F 77 18 96/66 100 02/23/20 10:00 02/23/20 11:15 02/23/20 11:15 02/23/20 11:15 02/23/20 10:[address] lungs bilat breath sounds cvs s1s2 rr +DAVE abd soft ext upper ext edema neuro occasionally opens eyes, otherwise no response CBC, BMP 02/22/20 05:00 02/22/20 05:00 Current Medications Generic Name Dose Route Start Last Admin Trade Name Freq PRN Reason Stop Dose Admin Acetaminophen 650 mg 02/19/20 20:56 02/20/20 21:06 Tylenol Oral Solution - GT 650 mg Q6H PRN Administration PAIN LEVEL 4 - 6 Albuterol/Ipratropium 1 amp 02/20/20 14:33 Duoneb - NEB Q4H PRN SHORTNESS OF BREATH Amlodipine Besylate 10 mg 02/09/20 10:00 02/20/20 10:21 Norvasc - NGT Not Given DAILY JOSE Collagenase 1 applic 02/09/20 10:00 02/23/20 09:47 Santyl - TP 1 applic DAILY JOSE Administration Protocol Guaifenesin 10 ml 02/19/20 20:56 02/21/20 20:49 Robitussin - GT 10 ml Q4H PRN Administration COUGH Midazolam HCl 100 mg in 100 mls @ 1 mls/hr 02/20/20 11:30 02/22/20 11:30 Midazolam 100mg/100ml-0.9%Nacl IVPB Not Given TITR JOSE Protocol 1 MG/HR Sodium Chloride 250 mls @ 3,000 mls/hr 02/20/20 12:37 Normal Saline - IV 02/21/20 12:37 PRN PRN Hypotension during Dialysis Norepinephrine Bitartrate 8,000 mcg in 500 mls @ 18.75 mls/hr 02/20/20 15:15 02/23/20 09:00 Levophed Bag IVPB 5 mcg/min TITR JOSE 18.75 mls/hr Titration Protocol 5 MCG/MIN Fentanyl 500 mcg in 100 mls @ 9.435 mls/hr 02/20/20 21:00 02/22/20 21:07 Sublimaze Ivpb IVPB 0.53 mcg/kg/hr TITR JOSE 5 mls/hr Administration 1 MCG/KG/HR Insulin Aspart 1 vial 02/09/20 12:00 02/23/20 06:25 Novolog Vial Sliding Scale - SQ 2 units Q6HPO JOSE Administration Protocol Methylprednisolone Sodium Succinate 40 mg 02/21/20 09:00 02/23/20 09:47 Solu-Medrol - IVPUSH 40 mg Q6H-IV JOSE Administration Metoprolol Tartrate 25 mg 02/19/20 22:00 02/20/20 10:20 Lopressor - GT Not Given BID JOSE Pantoprazole Sodium 40 mg 02/21/20 10:00 02/23/20 09:47 Protonix Iv IVPUSH 40 mg DAILY JOSE Administration IMPRESSION esrd htn s/p cva x 2- hypokalemia covid 19 neg hypernatremia resolved leukocytosis proteus bacetermia PLAN abx per ID continue vent support being dialyzed now would opt for biw hd for now MV
[2020-02-23] MEDS: MIDAZOLAM IN 0.9 % SOD.CHLORID 100 MG/100 ML PLAST..BAG IVPB SCH (12:21)
--- NOTE | 2020-02-23 12:21 | PN ---
Progress Note (short form) - Note Progress Note: 74 year old female brought patient from [place] for unreponsivness for two days prior to admission. Patient has history of stroke three months ago and has been decline since than. Patient has no seizure, she has high wbc and suspected to have aspiration pneumonia. Patient has large right mca cerebral edema. Patient has detiorated and developed hypoxia andshe got intubated and trasnferred to icu, patient is sedated and intubated. patient is sedated on ventilator. Patient is unreponsive to painful and verbal stimuli NEUROLOGICAL EXAMINATION Patient is comatosed, and wirhdraws to pain neck is supple pupils is small sluggsihly reactive gag and corneal reflex is present bp is maintained ct head showed large right mca cerebral edema with minimal hemorrhagic transformation repeat ct head done on january 28 Assessment/Plan 1. 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 Pippa sol so much Norman Plascencia MD
--- NOTE | 2020-02-23 13:07 | PN ---
Teaching Attending Note Name of Resident: Nesha Live ATTENDING PHYSICIAN STATEMENT I saw and evaluated the patient. I reviewed the resident's note and discussed the case with the resident. I agree with the resident's findings and plan as documented. SUBJECTIVE: Patient seen and examined in the ICU. Remains intubated and sedated. AC Mode of vent. 65% FiO2. NE @ 8 mcq for hemodynamic support. Currently on HD. Intake & Output 02/20/20 02/21/20 02/22/20 02/23/20 23:59 23:59 23:59 23:59 Intake Total 919 1367 2097 200 Output Total 8500 5210 Balance -7607 1367 2097 -5010 Weight 104 lb 91 lb 93 lb 12.8 oz 102 lb Last Vital Signs Temp Pulse Resp BP Pulse Ox 98.2 F 81 17 106/70 97 02/23/20 10:00 02/23/20 12:45 02/23/20 12:45 02/23/20 12:45 02/23/20 12:11 Active Medications Acetaminophen (Tylenol Oral Solution -) 650 mg GT Q6H PRN PRN Reason: PAIN LEVEL 4 - 6 Last Admin: 02/20/20 21:06 Dose: 650 mg Documented by: Albuterol/Ipratropium (Duoneb -) 1 amp NEB Q4H PRN PRN Reason: SHORTNESS OF BREATH Amlodipine Besylate (Norvasc -) 10 mg NGT DAILY JOSE Last Admin: 02/20/20 10:21 Dose: Not Given Documented by: Collagenase (Santyl -) 1 applic TP DAILY JOSE; Protocol Last Admin: 02/23/20 09:47 Dose: 1 applic Documented by: Guaifenesin (Robitussin -) 10 ml GT Q4H PRN PRN Reason: COUGH Last Admin: 02/21/20 20:49 Dose: 10 ml Documented by: Midazolam HCl (Midazolam 100mg/100ml-0.9%Nacl) 100 mg in 100 mls @ 1 mls/hr IVPB TITR JOSE; Protocol Last Admin: 02/23/20 12:21 Dose: Not Given Documented by: Sodium Chloride (Normal Saline -) 250 mls @ 3,000 mls/hr IV PRN PRN PRN Reason: Hypotension during Dialysis Stop: 02/21/20 12:37 Norepinephrine Bitartrate (Levophed Bag) 8,000 mcg in 500 mls @ 18.75 mls/hr IVPB TITR JOSE; Protocol Last Titration: 02/23/20 10:00 Dose: 8 mcg/min, 30 mls/hr Documented by: Fentanyl (Sublimaze Ivpb) 500 mcg in 100 mls @ 9.435 mls/hr IVPB TITR JOSE Last Admin: 02/22/20 21:07 Dose: 0.53 mcg/kg/hr, 5 mls/hr Documented by: Insulin Aspart (Novolog Vial Sliding Scale -) 1 vial SQ Q6HPO JOSE; Protocol Last Admin: 02/23/20 12:21 Dose: Not Given Documented by: Methylprednisolone Sodium Succinate (Solu-Medrol -) 40 mg IVPUSH Q6H-IV JOSE Last Admin: 02/23/20 09:47 Dose: 40 mg Documented by: Metoprolol Tartrate (Lopressor -) 25 mg GT BID JOSE Last Admin: 02/20/20 10:20 Dose: Not Given Documented by: Pantoprazole Sodium (Protonix Iv) 40 mg IVPUSH DAILY [facility] Last Admin: 02/23/20 09:47 Dose: 40 mg Documented by: Constitutional: Yes: Intubated and poorly responsive HENT: Yes: WNL Neck: Yes: WNL Cardiovascular: Yes: Regular Rate and Rhythm, S1, S2 Respiratory: Yes: Vented, bilateral rhonchi: Left > Right Gastrointestinal: Yes: Normal Bowel Sounds, Soft Extremities: Yes: WNL Edema: No Labs: Laboratory Results - last 24 hr 02/22/20 02/22/20 02/23/20 05:00 17:52 01:09 Sodium 139 Potassium 4.7 Chloride 102 Carbon Dioxide 25 Anion Gap 12 BUN 57.2 H Creatinine 3.3 H Est GFR (CKD-EPI)AfAm 14.96 Est GFR (CKD-EPI)NonAf 12.91 POC Glucometer 314 264 Random Glucose 313 H Calcium 8.6 Phosphorus 4.5 Magnesium 2.3 Total Bilirubin 0.3 AST 18 ALT 17 Alkaline Phosphatase 166 H Total Protein 6.2 L Albumin 2.0 L Triglycerides 148 Cholesterol 113 Total LDL Cholesterol 65 HDL Cholesterol 29 L 02/23/20 02/23/20 06:24 12:19 Sodium Potassium Chloride Carbon Dioxide Anion Gap BUN Creatinine Est GFR (CKD-EPI)AfAm Est GFR (CKD-EPI)NonAf POC Glucometer 220 111 Random Glucose Calcium Phosphorus Magnesium Total Bilirubin AST ALT Alkaline Phosphatase Total Protein Albumin Triglycerides Cholesterol Total LDL Cholesterol HDL Cholesterol Problem List - Problems (1) Altered mental status Code(s): R41.82 - ALTERED MENTAL STATUS, UNSPECIFIED (2) Pneumonia, aspiration Code(s): J69.0 - PNEUMONITIS DUE TO INHALATION OF FOOD AND VOMIT (3) Stroke Code(s): I63.9 - CEREBRAL INFARCTION, UNSPECIFIED (4) Hypertension Code(s): I10 - ESSENTIAL (PRIMARY) HYPERTENSION (5) ESRD on dialysis Code(s): N18.6 - END STAGE RENAL DISEASE; Z99.2 - DEPENDENCE ON RENAL DIALYSIS Assessment/Plan Acute Respiratory Failure Acute CVA Pneumonia likely Aspiration ESRD on HD HTN DM Hyperlipidemia h/o CVA - AC Mode of vent - Pulmonary toilet - ABX coverage - Pressors to maintain MAP > 65 - BD TX and short coarse of steroids - HD per Renal - Aspiration precautions - VTE prophylaxis - Grave overall prognosis : continue GOC discussions with the family : Unfortunately unrealistic about her outcome : Should ideally be compassionate wean. If family refuses, early Trach once parameters are appropriate. Likely early next week. Contact Dr Evan Sandoval for Trach evaluation. Dr Alonzo Critical care time spent in reviewing chart, evaluating patient and formulating plan - 36 minutes
--- NOTE | 2020-02-23 13:57 | PN ---
Progress Note, Physician History of Present Illness: 74 year old female with medical history of ESRD (on HD), hypertension, DMII, GERD, HTN, HL, aphasia and stroke 3 months ago, admitted to ICU fro ED for progressive weakness and reported unresponsiveness. Head CT showed (01/13) right pareital, occipital and temporal lobe suggestive of acute CVA no acute intracranial bleed ; Prolonged ICU course complicated by Acxute worsening of chronic anemia, likely from stomal bleed. Elevated TNIs most likely anemia induced ischemia. - Current Medication List Current Medications: Active Medications Acetaminophen (Tylenol Oral Solution -) 650 mg GT Q6H PRN PRN Reason: PAIN LEVEL 4 - 6 Last Admin: 02/20/20 21:06 Dose: 650 mg Documented by: Albuterol/Ipratropium (Duoneb -) 1 amp NEB Q4H PRN PRN Reason: SHORTNESS OF BREATH Amlodipine Besylate (Norvasc -) 10 mg NGT DAILY JOSE Last Admin: 02/20/20 10:21 Dose: Not Given Documented by: Collagenase (Santyl -) 1 applic TP DAILY JOSE; Protocol Last Admin: 02/23/20 09:47 Dose: 1 applic Documented by: Guaifenesin (Robitussin -) 10 ml GT Q4H PRN PRN Reason: COUGH Last Admin: 02/21/20 20:49 Dose: 10 ml Documented by: Midazolam HCl (Midazolam 100mg/100ml-0.9%Nacl) 100 mg in 100 mls @ 1 mls/hr IVPB TITR JOSE; Protocol Last Admin: 02/23/20 12:21 Dose: Not Given Documented by: Sodium Chloride (Normal Saline -) 250 mls @ 3,000 mls/hr IV PRN PRN PRN Reason: Hypotension during Dialysis Stop: 02/21/20 12:37 Norepinephrine Bitartrate (Levophed Bag) 8,000 mcg in 500 mls @ 18.75 mls/hr IVPB TITR JOSE; Protocol Last Titration: 02/23/20 13:00 Dose: 5 mcg/min, 18.75 mls/hr Documented by: Fentanyl (Sublimaze Ivpb) 500 mcg in 100 mls @ 9.435 mls/hr IVPB TITR JOSE Last Admin: 02/22/20 21:07 Dose: 0.53 mcg/kg/hr, 5 mls/hr Documented by: Insulin Aspart (Novolog Vial Sliding Scale -) 1 vial SQ Q6HPO [facility]; Protocol Last Admin: 02/23/20 12:21 Dose: Not Given Documented by: Methylprednisolone Sodium Succinate (Solu-Medrol -) 40 mg IVPUSH Q6H-IV [facility] Last Admin: 02/23/20 09:47 Dose: 40 mg Documented by: Metoprolol Tartrate (Lopressor -) 25 mg GT BID [facility] Last Admin: 02/20/20 10:20 Dose: Not Given Documented by: Pantoprazole Sodium (Protonix Iv) 40 mg IVPUSH DAILY [facility] Last Admin: 02/23/20 09:47 Dose: 40 mg Documented by: - Objective Vital Signs: Vital Signs Temperature 98.2 F 02/23/20 10:00 Pulse Rate 81 02/23/20 12:45 Respiratory Rate 17 02/23/20 12:45 Blood Pressure 106/70 02/23/20 12:45 O2 Sat by Pulse Oximetry (%) 97 02/23/20 12:11 Eyes: Yes: WNL, Conjunctiva Clear, EOM Intact HENT: Yes: WNL, Atraumatic, Normocephalic Neck: Yes: WNL, Supple, Trachea Midline Cardiovascular: Yes: WNL, Regular Rate and Rhythm Respiratory: Yes: Intubated, Mechanically Ventilated Gastrointestinal: Yes: WNL, Normal Bowel Sounds Genitourinary: Yes: WNL Musculoskeletal: Yes: WNL Extremities: Yes: WNL Edema: No Integumentary: Yes: WNL Labs: CBC, BMP 02/22/20 05:00 02/22/20 05:00 INR, PTT INR 1.56 (0.83-1.09) H 02/02/20 20:30 Fibrinogen 448.0 mg/dL (238-498) 02/05/20 06:00 Problem List - Problems (1) Altered mental status Code(s): R41.82 - ALTERED MENTAL STATUS, UNSPECIFIED (2) Anemia Code(s): D64.9 - ANEMIA, UNSPECIFIED (3) Lactic acidosis Code(s): E87.2 - ACIDOSIS (4) Pneumonia, aspiration Code(s): J69.0 - PNEUMONITIS DUE TO INHALATION OF FOOD AND VOMIT (5) Stroke Code(s): I63.9 - CEREBRAL INFARCTION, UNSPECIFIED (6) Clotted dialysis access Code(s): T82.49XA - OTH COMPLICATION OF VASCULAR DIALYSIS CATHETER, INIT ENCNTR (7) Diabetes Code(s): E11.9 - TYPE 2 DIABETES MELLITUS WITHOUT COMPLICATIONS (8) ESRD on dialysis Code(s): N18.6 - END STAGE RENAL DISEASE; Z99.2 - DEPENDENCE ON RENAL DIALYSIS (9) Hypertension Code(s): I10 - ESSENTIAL (PRIMARY) HYPERTENSION (10) SOB (shortness of breath) Code(s): R06.02 - SHORTNESS OF BREATH Assessment/Plan Hypoxemia-->transfer to ICU Intubated/ mechanically ventilated leukocytosis Acute right temporoparietal infarct -- Large MCA aspiration pneumonia; COVID negative ESRD -HD Respiratory failure severe Anemia elevated TNIs - most likely due to demand ischemia due to severe anemia. New LBBB 7-25-20 s/p PEG Nl EF Moderater MR moderate PHT Plan: now intubated, ventilated EKG: f/u TNI keep HCT around 30% Continue Metoprolol tartrate 25 BID ; f/u BP and HR. Is and Os Poor prognosis CC time spent: 35 minutes
--- NOTE | 2020-02-23 15:12 | PN ---
Progress Note, Physician Chief Complaint: INTUBATED IN ICU BREATHING NON-LABORED BC PROTEUS SP. REPEAT BC NO GROWTH CT A/P CHOLELITHIASIS - Current Medication List Current Medications: Active Medications Acetaminophen (Tylenol Oral Solution -) 650 mg GT Q6H PRN PRN Reason: PAIN LEVEL 4 - 6 Last Admin: 02/20/20 21:06 Dose: 650 mg Documented by: Albuterol/Ipratropium (Duoneb -) 1 amp NEB Q4H PRN PRN Reason: SHORTNESS OF BREATH Amlodipine Besylate (Norvasc -) 10 mg NGT DAILY [facility] Last Admin: 02/20/20 10:21 Dose: Not Given Documented by: Collagenase (Santyl -) 1 applic TP DAILY [facility]SE; Protocol Last Admin: 02/23/20 09:47 Dose: 1 applic Documented by: Guaifenesin (Robitussin -) 10 ml GT Q4H PRN PRN Reason: COUGH Last Admin: 02/21/20 20:49 Dose: 10 ml Documented by: Midazolam HCl (Midazolam 100mg/100ml-0.9%Nacl) 100 mg in 100 mls @ 1 mls/hr IVPB TITR [facility]SE; Protocol Last Admin: 02/23/20 12:21 Dose: Not Given Documented by: Sodium Chloride (Normal Saline -) 250 mls @ 3,000 mls/hr IV PRN PRN PRN Reason: Hypotension during Dialysis Stop: 02/21/20 12:37 Norepinephrine Bitartrate (Levophed Bag) 8,000 mcg in 500 mls @ 18.75 mls/hr IVPB TITR [facility]; Protocol Last Titration: 02/23/20 13:00 Dose: 5 mcg/min, 18.75 mls/hr Documented by: Fentanyl (Sublimaze Ivpb) 500 mcg in 100 mls @ 9.435 mls/hr IVPB TITR [facility] Last Admin: 02/22/20 21:07 Dose: 0.53 mcg/kg/hr, 5 mls/hr Documented by: Insulin Aspart (Novolog Vial Sliding Scale -) 1 vial SQ Q6HPO [facility]; Protocol Last Admin: 02/23/20 12:21 Dose: Not Given Documented by: Methylprednisolone Sodium Succinate (Solu-Medrol -) 40 mg IVPUSH Q6H-IV [facility] Last Admin: 02/23/20 09:47 Dose: 40 mg Documented by: Metoprolol Tartrate (Lopressor -) 25 mg GT BID [facility] Last Admin: 02/20/20 10:20 Dose: Not Given Documented by: Pantoprazole Sodium (Protonix Iv) 40 mg IVPUSH DAILY [facility] Last Admin: 02/23/20 09:47 Dose: 40 mg Documented by: - Objective Vital Signs: Vital Signs Temperature 98.2 F 02/23/20 10:00 Pulse Rate 100 H 02/23/20 13:30 Respiratory Rate 17 02/23/20 13:30 Blood Pressure 154/76 02/23/20 13:30 O2 Sat by Pulse Oximetry (%) 97 02/23/20 12:11 Constitutional: Yes: No Distress Eyes: Yes: Conjunctiva Clear Cardiovascular: Yes: Regular Rate and Rhythm, S1, S2 Respiratory: Yes: Mechanically Ventilated Gastrointestinal: Yes: Normal Bowel Sounds, Soft. No: Tenderness Edema: Yes Labs: CBC, BMP 02/22/20 05:00 02/22/20 05:00 INR, PTT INR 1.56 (0.83-1.09) H 02/02/20 20:30 Fibrinogen 448.0 mg/dL (238-498) 02/05/20 06:00 Assessment/Plan ACUTE RESP FAILURE R/O HCAP GRAM NEGATIVE BACTEREMIA S/P ACUTE CVA S/P RLL PNEUMONIA ESRD LEUKOCYTOSIS OBS CONTINUE ZOSYN VENTILATORY SUPPORT PROGNOSIS POOR
[2020-02-23] MEDS: NOREPINEPHRINE BITARTRATE 8,000 MCG/500 ML BAG IVPB SCH (15:22)
[2020-02-23] MEDS ORDERED: PIPERACILLIN/TAZOBACTAM 2.25 GM VIAL IVPB ONE (18:05)
[2020-02-23] MEDS ORDERED: DEXTROSE 5%-WATER - 50 ML IVPB ONE (18:05)
[2020-02-23] MEDS: PIPERACILLIN/TAZOB 2.25 GM 2.25 GM in DEXTROSE 5%-WATER - 50 ML IVPB SCH (18:09)
[2020-02-23] MEDS: FENTANYL IVPB 500 MCG/100 ML BAG IVPB SCH (21:34)
[2020-02-23] MEDS: METOPROLOL TARTRATE 25 MG TABLET (FP) GT SCH (21:35)
[2020-02-24] MEDS ORDERED: DEXTROSE 5%-WATER - 50 ML IVPB ONE ×4 (01:09→23:56)
[2020-02-24] MEDS ORDERED: PIPERACILLIN/TAZOBACTAM 2.25 GM VIAL IVPB ONE ×4 (01:09→23:56)
[2020-02-24] MEDS: PIPERACILLIN/TAZOB 2.25 GM 2.25 GM in DEXTROSE 5%-WATER - 50 ML IVPB SCH ×3 (02:06→17:22)
[2020-02-24] MEDS: INSULIN SLIDING SCALE (NOVOLOG) 1 VIAL SQ SCH ×4 (02:07→17:37)
[2020-02-24] MEDS: methylPREDNISolone NA SUCC 40 MG/1 ML VIAL IVPUSH SCH ×4 (02:07→21:26)
[2020-02-24] MEDS: NOREPINEPHRINE BITARTRATE 8,000 MCG/500 ML BAG IVPB SCH (08:00)
--- NOTE | 2020-02-24 08:51 | PN ---
Progress Note (short form) - Note Progress Note: Pulm/CCM SUBJECTIVE: Patient seen and examined in the ICU. Remains intubated and lightly sedated. AC Mode of vent. 50% FiO2. NE @ 3 mcq for hemodynamic support. No HD today Vital Signs Temp 98.2 F 02/24/20 06:00 Pulse 81 02/24/20 06:00 Resp 14 02/24/20 06:00 BP 113/63 02/24/20 06:00 Pulse Ox 100 02/24/20 06:00 Intake & Output 02/23/20 02/23/20 02/24/20 11:59 23:59 11:59 Intake Total 200 584 393 Output Total 2248 9392 Balance -204724 393 Weight 46.266 kg Intake: IV 284 233 LEVOPHED BAG 8,000 mcg In 200 144 500 ml @ 5 MCG/MIN 18.75 mls/hr IVPB TITR [facility] Rx# :[id number] MIDAZOLAM 100MG/100ML-0.9 24 25 %NACL 100 mg In 100 ml @ 1 MG/HR 1 mls/hr IVPB TITR [facility] Rx#:[id number] SUBLIMAZE IVPB 500 mcg In 60 64 100 ml @ 1 MCG/KG/HR 9. 435 mls/hr IVPB TITR [facility] Rx#:[id number] IVPB 200 300 160 Output: Fluid Removed, 2500 Hemodialysis Fluid Removed, 2248 6892 Hemodialysis Other: Voiding Method Incontinent Bowel Movement No No Active Medications Acetaminophen (Tylenol Oral Solution -) 650 mg GT Q6H PRN PRN Reason: PAIN LEVEL 4 - 6 Last Admin: 02/20/20 21:06 Dose: 650 mg Documented by: Albuterol/Ipratropium (Duoneb -) 1 amp NEB Q4H PRN PRN Reason: SHORTNESS OF BREATH Amlodipine Besylate (Norvasc -) 10 mg NGT DAILY [facility] Last Admin: 02/20/20 10:21 Dose: Not Given Documented by: Collagenase (Santyl -) 1 applic TP DAILY [facility]; Protocol Last Admin: 02/23/20 09:47 Dose: 1 applic Documented by: Guaifenesin (Robitussin -) 10 ml GT Q4H PRN PRN Reason: COUGH Last Admin: 02/21/20 20:49 Dose: 10 ml Documented by: Midazolam HCl (Midazolam 100mg/100ml-0.9%Nacl) 100 mg in 100 mls @ 1 mls/hr IVPB TITR [facility]; Protocol Last Admin: 02/23/20 12:21 Dose: Not Given Documented by: Sodium Chloride (Normal Saline -) 250 mls @ 3,000 mls/hr IV PRN PRN PRN Reason: Hypotension during Dialysis Stop: 02/21/20 12:37 Norepinephrine Bitartrate (Levophed Bag) 8,000 mcg in 500 mls @ 18.75 mls/hr IVPB TITR [facility]; Protocol Last Admin: 02/23/20 15:22 Dose: Not Given Documented by: Fentanyl (Sublimaze Ivpb) 500 mcg in 100 mls @ 9.435 mls/hr IVPB TITR [facility] Last Admin: 02/23/20 21:34 Dose: 0.53 mcg/kg/hr, 5 mls/hr Documented by: Piperacillin Sod/Tazobactam (Sod 2.25 gm/ Dextrose) 50 mls @ 100 mls/hr IVPB Q8H-IV [facility]; Protocol Last Admin: 02/24/20 02:06 Dose: 100 mls/hr Documented by: Insulin Aspart (Novolog Vial Sliding Scale -) 1 vial SQ Q6HPO [facility]; Protocol Last Admin: 02/24/20 07:07 Dose: 4 units Documented by: Methylprednisolone Sodium Succinate (Solu-Medrol -) 40 mg IVPUSH Q6H-IV [facility] Last Admin: 02/24/20 02:07 Dose: 40 mg Documented by: Metoprolol Tartrate (Lopressor -) 25 mg GT BID [facility] Last Admin: 02/23/20 21:35 Dose: Not Given Documented by: Pantoprazole Sodium (Protonix Iv) 40 mg IVPUSH DAILY [facility] Last Admin: 02/23/20 09:47 Dose: 40 mg Documented by: Constitutional: Yes: Intubated and poorly responsive to noxious stimuli HENT: Yes: WNL Neck: Yes: WNL, tunneled HD RIJ CDI Cardiovascular: Yes: Regular Rate and Rhythm, S1, S2 Respiratory: Yes: Vented, bilateral rhonchi: Left > Right Gastrointestinal: Yes: Normal Bowel Sounds, Soft Extremities: Yes: WNL Edema: No Labs: CBC, BMP 02/22/20 05:00 02/22/20 05:00 Problem List - Problems (1) Altered mental status Code(s): R41.82 - ALTERED MENTAL STATUS, UNSPECIFIED (2) Pneumonia, aspiration Code(s): J69.0 - PNEUMONITIS DUE TO INHALATION OF FOOD AND VOMIT (3) Stroke Code(s): I63.9 - CEREBRAL INFARCTION, UNSPECIFIED (4) Hypertension Code(s): I10 - ESSENTIAL (PRIMARY) HYPERTENSION (5) ESRD on dialysis Code(s): N18.6 - END STAGE RENAL DISEASE; Z99.2 - DEPENDENCE ON RENAL DIALYSIS Assessment/Plan Acute Respiratory Failure Acute CVA Pneumonia likely Aspiration ESRD on HD HTN DM Hyperlipidemia h/o CVA - AC Mode of vent - Pulmonary toilet - ABX coverage with Zosyn (proteus in blood in past) - Pressors to maintain MAP > 65 , should be able to come off - BD TX and short coarse of steroids , will wean once off steroids - HD per Renal - Aspiration precautions - VTE prophylaxis - Grave overall prognosis : ongoing GOC discussion, likely trach next week. Full code now. Anais COVARRUBIAS 37min CCT
--- NOTE | 2020-02-24 08:55 | PN ---
Progress Note, Physician Chief Complaint: Pt is sedated on the ventilator with an FiO2 of 50% Levophed at 3 mcg/min Also on both Fentanyl and Versed - Current Medication List Current Medications: Active Medications Acetaminophen (Tylenol Oral Solution -) 650 mg GT Q6H PRN PRN Reason: PAIN LEVEL 4 - 6 Last Admin: 02/20/20 21:06 Dose: 650 mg Documented by: Albuterol/Ipratropium (Duoneb -) 1 amp NEB Q4H PRN PRN Reason: SHORTNESS OF BREATH Amlodipine Besylate (Norvasc -) 10 mg NGT DAILY [facility]SE Last Admin: 02/20/20 10:21 Dose: Not Given Documented by: Collagenase (Santyl -) 1 applic TP DAILY [facility]; Protocol Last Admin: 02/23/20 09:47 Dose: 1 applic Documented by: Guaifenesin (Robitussin -) 10 ml GT Q4H PRN PRN Reason: COUGH Last Admin: 02/21/20 20:49 Dose: 10 ml Documented by: Midazolam HCl (Midazolam 100mg/100ml-0.9%Nacl) 100 mg in 100 mls @ 1 mls/hr IVPB TITR [facility]; Protocol Last Admin: 02/23/20 12:21 Dose: Not Given Documented by: Sodium Chloride (Normal Saline -) 250 mls @ 3,000 mls/hr IV PRN PRN PRN Reason: Hypotension during Dialysis Stop: 02/21/20 12:37 Norepinephrine Bitartrate (Levophed Bag) 8,000 mcg in 500 mls @ 18.75 mls/hr IVPB TITR [facility]; Protocol Last Admin: 02/23/20 15:22 Dose: Not Given Documented by: Fentanyl (Sublimaze Ivpb) 500 mcg in 100 mls @ 9.435 mls/hr IVPB TITR [facility] Last Admin: 02/23/20 21:34 Dose: 0.53 mcg/kg/hr, 5 mls/hr Documented by: Piperacillin Sod/Tazobactam (Sod 2.25 gm/ Dextrose) 50 mls @ 100 mls/hr IVPB Q8H-IV [facility]; Protocol Last Admin: 02/24/20 02:06 Dose: 100 mls/hr Documented by: Insulin Aspart (Novolog Vial Sliding Scale -) 1 vial SQ Q6HPO [facility]; Protocol Last Admin: 02/24/20 07:07 Dose: 4 units Documented by: Methylprednisolone Sodium Succinate (Solu-Medrol -) 40 mg IVPUSH Q6H-IV [facility] Last Admin: 02/24/20 02:07 Dose: 40 mg Documented by: Metoprolol Tartrate (Lopressor -) 25 mg GT BID [facility] Last Admin: 02/23/20 21:35 Dose: Not Given Documented by: Pantoprazole Sodium (Protonix Iv) 40 mg IVPUSH DAILY [facility] Last Admin: 02/23/20 09:47 Dose: 40 mg Documented by: - Objective Vital Signs: Vital Signs Temperature 98.2 F 02/24/20 06:00 Pulse Rate 81 02/24/20 06:00 Respiratory Rate 14 02/24/20 06:00 Blood Pressure 113/63 02/24/20 06:00 O2 Sat by Pulse Oximetry (%) 100 02/24/20 06:00 Constitutional: Yes: No Distress Cardiovascular: Yes: S1, S2 Respiratory: Yes: Other (qual air entry B/L) Gastrointestinal: Yes: Soft (Equal air entry B/L), Other (GT in place) Edema: No Labs: CBC, BMP 02/22/20 05:00 02/22/20 05:00 INR, PTT INR 1.56 (0.83-1.09) H 02/02/20 20:30 Fibrinogen 448.0 mg/dL (238-498) 02/05/20 06:00 Assessment/Plan Respiratory failure Proteus Bacteremia S/P Acute CVA ESRD on HD HTN but now on Levophed DM Hyperlipidemia Anemia PLAN Taper off the Levophed as tolerated Abx per ID GT feeds Abx as per ID D/C Amlodipine Discussed with the Vice President Of Academic Affairs Dr Horta
--- NOTE | 2020-02-24 10:01 | PN ---
Progress Note (short form) - Note Progress Note: pt is in ICU intubated no changes Vital Signs - 24 hr 02/23/20 02/23/20 02/23/20 10:15 10:45 11:15 Temperature Pulse Rate 77 79 77 Respiratory 14 14 18 Rate Blood Pressure 113/63 84/59 L 96/66 O2 Sat by Pulse Oximetry (%) 02/23/20 02/23/20 02/23/20 11:45 11:59 12:00 Temperature Pulse Rate 74 96 H Respiratory 17 14 14 Rate Blood Pressure 94/67 95/57 L O2 Sat by Pulse 99 100 Oximetry (%) 02/23/20 02/23/20 02/23/20 12:11 12:15 12:45 Temperature Pulse Rate 79 81 Respiratory 18 17 Rate Blood Pressure 98/62 106/70 O2 Sat by Pulse 97 Oximetry (%) 02/23/20 02/23/20 02/23/20 13:15 13:25 13:30 Temperature Pulse Rate 74 112 H 100 H Respiratory 13 16 17 Rate Blood Pressure 98/61 174/85 H 154/76 O2 Sat by Pulse Oximetry (%) 02/23/20 02/23/20 02/23/20 14:00 15:56 16:00 Temperature 97.9 F Pulse Rate 91 H 89 Respiratory 14 14 14 Rate Blood Pressure 98/56 L 110/60 O2 Sat by Pulse 100 99 100 Oximetry (%) 02/23/20 02/23/20 02/23/20 16:01 18:00 20:00 Temperature 97.8 F Pulse Rate 91 H 91 H 91 H Respiratory 14 14 Rate Blood Pressure 115/58 L 107/54 L O2 Sat by Pulse 100 100 99 Oximetry (%) 02/23/20 02/23/20 02/23/20 21:00 21:13 22:00 Temperature Pulse Rate 90 Respiratory 15 15 Rate Blood Pressure 106/55 L O2 Sat by Pulse 99 98 99 Oximetry (%) 02/24/20 02/24/20 02/24/20 00:00 00:40 02:00 Temperature Pulse Rate 85 84 Respiratory 14 14 14 Rate Blood Pressure 110/56 L 98/57 L O2 Sat by Pulse 100 99 100 Oximetry (%) 02/24/20 02/24/20 02/24/20 04:00 04:46 06:00 Temperature 98.2 F Pulse Rate 83 81 Respiratory 10 14 14 Rate Blood Pressure 92/57 L 113/63 O2 Sat by Pulse 100 99 100 Oximetry (%) 02/24/20 08:47 Temperature Pulse Rate 97 H Respiratory 14 Rate Blood Pressure O2 Sat by Pulse 96 Oximetry (%) Current Medications Generic Name Dose Route Start Last Admin Trade Name Freq PRN Reason Stop Dose Admin Acetaminophen 650 mg 02/19/20 20:56 02/20/20 21:06 Tylenol Oral Solution - GT 650 mg Q6H PRN Administration PAIN LEVEL 4 - 6 Albuterol/Ipratropium 1 amp 02/20/20 14:33 Duoneb - NEB Q4H PRN SHORTNESS OF BREATH Collagenase 1 applic 02/09/20 10:00 02/23/20 09:47 Santyl - TP 1 applic DAILY JOSE Administration Protocol Guaifenesin 10 ml 02/19/20 20:56 02/21/20 20:49 Robitussin - GT 10 ml Q4H PRN Administration COUGH Midazolam HCl 100 mg in 100 mls @ 1 mls/hr 02/20/20 11:30 02/23/20 12:21 Midazolam 100mg/100ml-0.9%Nacl IVPB Not Given TITR [facility] Protocol 1 MG/HR Sodium Chloride 250 mls @ 3,000 mls/hr 02/20/20 12:37 Normal Saline - IV 02/21/20 12:37 PRN PRN Hypotension during Dialysis Norepinephrine Bitartrate 8,000 mcg in 500 mls @ 18.75 mls/hr 02/20/20 15:15 02/23/20 15:22 Levophed Bag IVPB Not Given TITR JOSE Protocol 5 MCG/MIN Fentanyl 500 mcg in 100 mls @ 9.435 mls/hr 02/20/20 21:00 02/23/20 21:34 Sublimaze Ivpb IVPB 0.53 mcg/kg/hr TITR [facility] 5 mls/hr Administration 1 MCG/KG/HR Piperacillin Sod/Tazobactam 50 mls @ 100 mls/hr 02/23/20 18:00 02/24/20 02:06 Sod 2.25 gm/ Dextrose IVPB 100 mls/hr Q8H-IV [facility] Administration Protocol Insulin Aspart 1 vial 02/09/20 12:00 02/24/20 07:07 Novolog Vial Sliding Scale - SQ 4 units Q6HPO JOSE Administration Protocol Methylprednisolone Sodium Succinate 40 mg 02/21/20 09:00 02/24/20 02:07 Solu-Medrol - IVPUSH 40 mg Q6H-IV [facility] Administration Pantoprazole Sodium 40 mg 02/21/20 10:00 02/23/20 09:47 Protonix Iv IVPUSH 40 mg DAILY [facility] Administration Laboratory Results - last 24 hr 02/23/20 02/23/20 02/23/20 12:19 18:12 23:51 POC Glucometer 111 317 319 02/24/20 07:02 POC Glucometer 283 S1 S2 RRR left side edematous Lungs decreased Abd- soft, NT, GT+ No edema intubated ,sedated ct head showed large right mca cerebral edema with minimal hemorrhagic transformation repeat ct head done on january 28 A/P acute respiratory failure fever 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 ESRD on HD aspiration pneumonia acute respiratory failure -proteus in blood sepsis -- iv antibiotics per ID -- pt is FULL CODE -- continue with current care -- poor prognosis -- vent management per ICU -- pressor support as needed -- family wishes to continue current management including dialysis Problem List - Problems (1) Altered mental status Code(s): R41.82 - ALTERED MENTAL STATUS, UNSPECIFIED (2) Lactic acidosis Code(s): E87.2 - ACIDOSIS (3) Pneumonia, aspiration Code(s): J69.0 - PNEUMONITIS DUE TO INHALATION OF FOOD AND VOMIT (4) Stroke Code(s): I63.9 - CEREBRAL INFARCTION, UNSPECIFIED (5) ESRD on dialysis Code(s): N18.6 - END STAGE RENAL DISEASE; Z99.2 - DEPENDENCE ON RENAL DIALYSIS (6) Hypertension Code(s): I10 - ESSENTIAL (PRIMARY) HYPERTENSION
[2020-02-24] MEDS: PANTOPRAZOLE SODIUM 40 MG VIAL IVPUSH SCH (10:11)
[2020-02-24] MEDS: MIDAZOLAM IN 0.9 % SOD.CHLORID 100 MG/100 ML PLAST..BAG IVPB SCH (10:30)
[2020-02-24] MEDS: COLLAGENASE CLOSTRIDIUM HIST. 30 GRAMS TUBE TP SCH (12:00)
--- NOTE | 2020-02-24 13:24 | PN ---
Progress Note (short form) - Note Progress Note: 74 year old female brought patient from [place] for unreponsivness for two days prior to admission. Patient has history of stroke three months ago and has been decline since than. Patient has no seizure, she has high wbc and suspected to have aspiration pneumonia. Patient has large right mca cerebral edema. Patient has detiorated and developed hypoxia andshe got intubated and trasnferred to icu, patient is sedated and intubated. patient is sedated on ventilator. Patient is unreponsive to painful and verbal stimuli, no new complain NEUROLOGICAL EXAMINATION Patient is comatosed, and wirhdraws to pain neck is supple pupils is small sluggsihly reactive gag and corneal reflex is present bp is maintained ct head showed large right mca cerebral edema with minimal hemorrhagic transformation repeat ct head done on january 28 Assessment/Plan 1. 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 Pippa sol so much Norman Plascencia MD
[2020-02-24] MEDS: FENTANYL IVPB 500 MCG/100 ML BAG IVPB SCH (21:26)
[2020-02-24] MEDS ORDERED: MIDAZOLAM HCL 2 MG/2 ML SINGLE DOSE VIAL ONE (22:04)
[2020-02-25] MEDS: INSULIN SLIDING SCALE (NOVOLOG) 1 VIAL SQ SCH ×4 (02:56→17:09)
[2020-02-25] MEDS: methylPREDNISolone NA SUCC 40 MG/1 ML VIAL IVPUSH SCH ×4 (02:57→21:55)
[2020-02-25] MEDS: PIPERACILLIN/TAZOB 2.25 GM 2.25 GM in DEXTROSE 5%-WATER - 50 ML IVPB SCH ×3 (02:57→17:14)
[2020-02-25 06:54] LABS: HEMATOCRIT 25.8 % (32.4-45.2); MCH 29.7 pg (25.7-33.7); MCHC 31.1 g/dl (32.0-36.0); MEAN CELL VOLUME 95.3 fl (80-96); MEAN PLT VOLUME 9.6 fl (7.5-11.1); PLATELET COUNT 641 K/MM3 (134-434); RDW 17.6 % (11.6-15.6)
[2020-02-25 07:20] LABS: BLOOD UREA NITROGEN 79.2 mg/dL (7-18); CREATININE 3.4 mg/dL (0.55-1.3); MAGNESIUM 2.3 mg/dL (1.8-2.4); PHOSPHOROUS 3.8 mg/dL (2.5-4.9); POTASSIUM 3.1 mmol/L (3.5-5.1)
[2020-02-25 07:22] LABS: WHITE BLOOD COUNT 33.1 K/mm3 (4.0-10.0)
--- NOTE | 2020-02-25 08:33 | PN ---
Progress Note (short form) - Note Progress Note: Pulm/CCM Patient seen and examined in the ICU. Remains intubated, off sedation. No response. AC Mode of vent. 14/450/50%/+8 NE @ 3 mcq for hemodynamic support. For HD on Wednesday and possible trach on Wednesday Vital Signs Period Temp Pulse Resp BP Sys/Ramirez Pulse Ox Last 24 Hr 97.8 F-99.1 F 87-105 11-19 83-111/52-66 96-100 Intake & Output 02/22/20 02/23/20 02/24/20 02/25/20 23:59 23:59 23:59 23:59 Intake Total 0900 278 543 1201 Output Total 43842 Balance 2093 -97497 715 1615 Weight 42.547 kg 46.266 kg Active Medications Acetaminophen (Tylenol Oral Solution -) 650 mg GT Q6H PRN PRN Reason: PAIN LEVEL 4 - 6 Last Admin: 02/20/20 21:06 Dose: 650 mg Documented by: Banana Based Medical Food (Banatrol Plus Powder Packet) 1 packet PO TID [facility] Last Admin: 02/25/20 13:53 Dose: 1 packet Documented by: Collagenase (Santyl -) 1 applic TP DAILY [facility]; Protocol Last Admin: 02/25/20 13:53 Dose: 1 applic Documented by: Guaifenesin (Robitussin -) 10 ml GT Q4H PRN PRN Reason: COUGH Last Admin: 02/21/20 20:49 Dose: 10 ml Documented by: Midazolam HCl (Midazolam 100mg/100ml-0.9%Nacl) 100 mg in 100 mls @ 1 mls/hr IVPB TITR [facility]; Protocol Last Admin: 02/25/20 11:30 Dose: Not Given Documented by: Sodium Chloride (Normal Saline -) 250 mls @ 3,000 mls/hr IV PRN PRN PRN Reason: Hypotension during Dialysis Stop: 02/21/20 12:37 Norepinephrine Bitartrate (Levophed Bag) 8,000 mcg in 500 mls @ 18.75 mls/hr IVPB TITR [facility]; Protocol Last Admin: 02/25/20 17:30 Dose: 3 mcg/min, 11.25 mls/hr Documented by: Fentanyl (Sublimaze Ivpb) 500 mcg in 100 mls @ 9.435 mls/hr IVPB TITR [facility] Last Titration: 02/25/20 17:30 Dose: 0.53 mcg/kg/hr, 5 mls/hr Documented by: Piperacillin Sod/Tazobactam (Sod 2.25 gm/ Dextrose) 50 mls @ 100 mls/hr IVPB Q8H-IV [facility]; Protocol Last Admin: 02/25/20 17:14 Dose: 100 mls/hr Documented by: Insulin Aspart (Novolog Vial Sliding Scale -) 1 vial SQ Q6HPO [facility]; Protocol Last Admin: 02/25/20 17:09 Dose: 8 units Documented by: Methylprednisolone Sodium Succinate (Solu-Medrol -) 40 mg IVPUSH Q6H-IV [facility] Last Admin: 02/25/20 14:35 Dose: 40 mg Documented by: Pantoprazole Sodium (Protonix Iv) 40 mg IVPUSH DAILY [facility] Last Admin: 02/25/20 10:51 Dose: 40 mg Documented by: Constitutional: Intubated and poorly responsive to noxious stimuli HENT: WNL Neck: , tunneled HD RIJ CDI Cardiovascular: Regular Rate and Rhythm, S1, S2 Respiratory: Vented, bilateral rhonchi: Left > Right Gastrointestinal: Normal Bowel Sounds, Soft Extremities: WNL Edema: No Labs: CBC, BMP 02/25/20 05:50 02/25/20 05:50 A/ Acute Respiratory Failure Acute CVA Pneumonia likely Aspiration ESRD on HD HTN DM Hyperlipidemia h/o CVA - AC Mode of vent - Pulmonary toilet - Appreciate neuro recs - ABX coverage with Zosyn (proteus in blood in past) - I/O - Trend and replete lytes - Titrate pressors to maintain MAP > 65 - BD TX and short coarse of steroids , will wean once off steroids - HD per Renal - Aspiration precautions - VTE prophylaxis - TF - Insulin sliding scale Dispo: Grave overall prognosis : ongoing GOC discussion, likely trach next week. Full code now. Marguerite Gallo [facility] [id number] Problem List - Problems (1) ESRD on dialysis Code(s): N18.6 - END STAGE RENAL DISEASE; Z99.2 - DEPENDENCE ON RENAL DIALYSIS (2) Altered mental status Code(s): R41.82 - ALTERED MENTAL STATUS, UNSPECIFIED (3) Diabetes Code(s): E11.9 - TYPE 2 DIABETES MELLITUS WITHOUT COMPLICATIONS (4) Lactic acidosis Code(s): E87.2 - ACIDOSIS (5) Pneumonia, aspiration Code(s): J69.0 - PNEUMONITIS DUE TO INHALATION OF FOOD AND VOMIT
[2020-02-25] MEDS: KCL 10 MEQ IVPB 10 MEQ/100 ML INFUS.BAG IVPB SCH ×3 (08:51→11:30)
--- NOTE | 2020-02-25 09:03 | PN ---
Progress Note, Physician Chief Complaint: Pt remains sedated on Versed and the ventilator FiO2 at 50% Levophed still at 3 mcg/min Also on Fentanyl for possible tracheostomy tomorrow Being given KARLOS for K of 3.1 - Current Medication List Current Medications: Active Medications Acetaminophen (Tylenol Oral Solution -) 650 mg GT Q6H PRN PRN Reason: PAIN LEVEL 4 - 6 Last Admin: 02/20/20 21:06 Dose: 650 mg Documented by: Albuterol/Ipratropium (Duoneb -) 1 amp NEB Q4H PRN PRN Reason: SHORTNESS OF BREATH Collagenase (Santyl -) 1 applic TP DAILY [facility]; Protocol Last Admin: 02/24/20 12:00 Dose: 1 applic Documented by: Guaifenesin (Robitussin -) 10 ml GT Q4H PRN PRN Reason: COUGH Last Admin: 02/21/20 20:49 Dose: 10 ml Documented by: Midazolam HCl (Midazolam 100mg/100ml-0.9%Nacl) 100 mg in 100 mls @ 1 mls/hr IVPB TITR [facility]; Protocol Last Admin: 02/24/20 10:30 Dose: 2 mg/hr, 2 mls/hr Documented by: Sodium Chloride (Normal Saline -) 250 mls @ 3,000 mls/hr IV PRN PRN PRN Reason: Hypotension during Dialysis Stop: 02/21/20 12:37 Norepinephrine Bitartrate (Levophed Bag) 8,000 mcg in 500 mls @ 18.75 mls/hr IVPB TITR [facility]; Protocol Last Admin: 02/24/20 08:00 Dose: 3 mcg/min, 11.25 mls/hr Documented by: Fentanyl (Sublimaze Ivpb) 500 mcg in 100 mls @ 9.435 mls/hr IVPB TITR [facility] Last Admin: 02/24/20 21:26 Dose: 0.53 mcg/kg/hr, 5 mls/hr Documented by: Piperacillin Sod/Tazobactam (Sod 2.25 gm/ Dextrose) 50 mls @ 100 mls/hr IVPB Q8H-IV [facility]; Protocol Last Admin: 02/25/20 02:57 Dose: 100 mls/hr Documented by: Potassium Chloride (Potassium Chloride 10 Meq Premix Ivpb -) 10 meq in 100 mls @ 100 mls/hr IVPB Q60M [facility] Stop: 02/25/20 11:29 Last Admin: 02/25/20 08:51 Dose: 100 mls/hr Documented by: Insulin Aspart (Novolog Vial Sliding Scale -) 1 vial SQ Q6HPO [facility]; Protocol Methylprednisolone Sodium Succinate (Solu-Medrol -) 40 mg IVPUSH Q6H-IV [facility] Last Admin: 02/25/20 08:52 Dose: 40 mg Documented by: Pantoprazole Sodium (Protonix Iv) 40 mg IVPUSH DAILY [facility] Last Admin: 02/24/20 10:11 Dose: 40 mg Documented by: - Objective Vital Signs: Vital Signs Temperature 98.8 F 02/25/20 06:00 Pulse Rate 87 02/25/20 06:00 Respiratory Rate 11 02/25/20 06:00 Blood Pressure 111/58 L 02/25/20 06:00 O2 Sat by Pulse Oximetry (%) 100 02/25/20 06:00 Constitutional: Yes: No Distress Cardiovascular: Yes: S1, S2 Respiratory: Yes: Other (Equal air entry B/L) Gastrointestinal: Yes: Soft, Other (GT in place and feeds in progress). No: Distention Edema: LUE: 2+, RUE: 2+ Labs: CBC, BMP 02/25/20 05:50 02/25/20 05:50 INR, PTT INR 1.56 (0.83-1.09) H 02/02/20 20:30 Fibrinogen 448.0 mg/dL (238-498) 02/05/20 06:00 Assessment/Plan Respiratory failure Hypotension on Levophed Proteus Bacteremia S/P Acute CVA ESRD on HD HTN in past DM Hyperlipidemia Anemia PLAN Taper off the Levophed as tolerated KCL as ordered Fentanyl just stopped Abx per ID GT feeds Abx as per ID BB and Amlodipine were stopped yesterday Possible tracheostomy tomorrow To coordinate the Dialysis with the above tomorrow Discussed with the [employer] Dr Horta
[2020-02-25] MEDS ORDERED: PIPERACILLIN/TAZOBACTAM 2.25 GM VIAL IVPB ONE ×2 (10:47→17:13)
[2020-02-25] MEDS ORDERED: DEXTROSE 5%-WATER - 50 ML IVPB ONE ×2 (10:48→17:13)
[2020-02-25] MEDS: PANTOPRAZOLE SODIUM 40 MG VIAL IVPUSH SCH (10:51)
[2020-02-25] MEDS: MIDAZOLAM IN 0.9 % SOD.CHLORID 100 MG/100 ML PLAST..BAG IVPB SCH (11:30)
--- NOTE | 2020-02-25 13:46 | PN ---
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 ESRD on HD aspiration pneumonia acute respiratory failure -proteus in blood sepsis -- iv antibiotics per ID -- pt is FULL CODE -- continue with current care -- poor prognosis -- vent management per ICU -- pressor support as needed -- family wishes to continue current management including dialysis Problem List - Problems (1) Altered mental status Code(s): R41.82 - ALTERED MENTAL STATUS, UNSPECIFIED (2) Lactic acidosis Code(s): E87.2 - ACIDOSIS (3) Pneumonia, aspiration Code(s): J69.0 - PNEUMONITIS DUE TO INHALATION OF FOOD AND VOMIT (4) Stroke Code(s): I63.9 - CEREBRAL INFARCTION, UNSPECIFIED (5) ESRD on dialysis Code(s): N18.6 - END STAGE RENAL DISEASE; Z99.2 - DEPENDENCE ON RENAL DIALYSIS (6) Hypertension Code(s): I10 - ESSENTIAL (PRIMARY) HYPERTENSION
[2020-02-25] MEDS: COLLAGENASE CLOSTRIDIUM HIST. 30 GRAMS TUBE TP SCH (13:53)
[2020-02-25] MEDS: BANATROL PLUS POWDER PACKET PO SCH ×2 (13:53→22:50)
--- NOTE | 2020-02-25 15:43 | PN ---
Progress Note (short form) - Note Progress Note: 74 year old female brought patient from [place] for unreponsivness for two days prior to admission. Patient has history of stroke three months ago and has been decline since than. Patient has no seizure, she has high wbc and suspected to have aspiration pneumonia. Patient has large right mca cerebral edema. Patient has detiorated and developed hypoxia andshe got intubated and trasnferred to icu, patient is sedated and intubated. patient is sedated on ventilator. Patient is unreponsive to painful and verbal stimuli, no new complain off sedation and no reponse . NEUROLOGICAL EXAMINATION Patient is comatosed, no response to pain or verbal stimuli( off sedation gag reflex corneal reflex is present not breathing above vent neck is supple pupils is small sluggsihly reactive gag and corneal reflex is present bp is maintained ct head showed large right mca cerebral edema with minimal hemorrhagic transformation repeat ct head done on january 28 Assessment/Plan 1. Large right mca acute stroke also old left mca stroke, now bi hemispheric stroke patient devleoped hypoxic respiratory failure and intubated Plan: continue supportive care - Id following for high wbc and aspiration pneumonia - prongosis is not good , spoke to daughter at bed side - ventilator care as per ICU - 35 min cc time. Pippa sol so much Norman Plascencia MD
[2020-02-25] MEDS: NOREPINEPHRINE BITARTRATE 8,000 MCG/500 ML BAG IVPB SCH (17:30)
[2020-02-25] MEDS: FENTANYL IVPB 500 MCG/100 ML BAG IVPB SCH (22:05)
[2020-02-26] MEDS: INSULIN SLIDING SCALE (NOVOLOG) 1 VIAL SQ SCH ×4 (00:40→18:21)
[2020-02-26] MEDS ORDERED: DEXTROSE 5%-WATER - 50 ML IVPB ONE ×3 (01:50→21:11)
[2020-02-26] MEDS ORDERED: PIPERACILLIN/TAZOBACTAM 2.25 GM VIAL IVPB ONE ×3 (01:50→21:11)
[2020-02-26] MEDS: PIPERACILLIN/TAZOB 2.25 GM 2.25 GM in DEXTROSE 5%-WATER - 50 ML IVPB SCH ×3 (01:53→21:13)
[2020-02-26] MEDS: methylPREDNISolone NA SUCC 40 MG/1 ML VIAL IVPUSH SCH ×4 (03:50→21:14)
[2020-02-26 06:07] LABS: ARTERIAL BLD GAS O2 SATURATION 98.5 mmHg (95-98); ARTERIAL BLOOD GAS BASE EXCESS -3.9 mmol/L (-2-2); ARTERIAL BLOOD GAS PO2 127.8 mmHg (80-100); ARTERIAL BLOOD GAS pH 7.372 (7.350-7.450)
[2020-02-26] MEDS: BANATROL PLUS POWDER PACKET PO SCH ×3 (06:16→21:15)
[2020-02-26 06:22] LABS: ALLENS TEST POSITIVE
[2020-02-26 06:23] LABS: VENT MODE A/C; VENT RATE 14
[2020-02-26 07:22] LABS: BASO % 0.2 % (0-2.0); EOS % 0.1 % (0-4.5); HEMATOCRIT 26.3 % (32.4-45.2); HEMOGLOBIN 8.2 GM/dL (10.7-15.3); LYMPH % 1.3 % (8-40); MCH 29.6 pg (25.7-33.7); MCHC 31.3 g/dl (32.0-36.0); MEAN CELL VOLUME 94.3 fl (80-96); MEAN PLT VOLUME 9.8 fl (7.5-11.1); MONO % 1.4 % (3.8-10.2); PLATELET COUNT 639 K/MM3 (134-434); RBC 2.79 M/mm3 (3.60-5.2)
[2020-02-26 07:51] LABS: ALBUMIN 1.7 g/dl (3.4-5.0); BILIRUBIN,TOTAL 0.3 mg/dL (0.2-1); BLOOD UREA NITROGEN 98.5 mg/dL (7-18); CALCIUM 8.3 mg/dL (8.5-10.1); CREATININE 3.8 mg/dL (0.55-1.3); MAGNESIUM 2.4 mg/dL (1.8-2.4); PHOSPHOROUS 4.2 mg/dL (2.5-4.9); POTASSIUM 4.3 mmol/L (3.5-5.1); TOT PROT 5.7 g/dl (6.4-8.2)
[2020-02-26 08:09] LABS: WHITE BLOOD COUNT 45.9 K/mm3 (4.0-10.0)
[2020-02-26] MEDS: COLLAGENASE CLOSTRIDIUM HIST. 30 GRAMS TUBE TP SCH (09:04)
[2020-02-26] MEDS: PANTOPRAZOLE SODIUM 40 MG VIAL IVPUSH SCH (09:04)
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
[2020-02-26] MEDS ORDERED: SODIUM CHLORIDE 250 ML IV PRN (10:08)
--- NOTE | 2020-02-26 10:12 | PN ---
Progress Note, Physician History of Present Illness: 74 year old female with medical history of ESRD (on HD), hypertension, DMII, GERD, HTN, HL, aphasia and stroke 3 months ago, admitted to ICU fro ED for progressive weakness and reported unresponsiveness. Head CT showed (01/13) right pareital, occipital and temporal lobe suggestive of acute CVA no acute intracranial bleed ; Prolonged ICU course complicated by Acxute worsening of chronic anemia, likely from stomal bleed. Elevated TNIs most likely anemia induced ischemia. - Current Medication List Current Medications: Active Medications Acetaminophen (Tylenol Oral Solution -) 650 mg GT Q6H PRN PRN Reason: PAIN LEVEL 4 - 6 Last Admin: 02/20/20 21:06 Dose: 650 mg Documented by: Banana Based Medical Food (Banatrol Plus Powder Packet) 1 packet PO TID JOSE Last Admin: 02/26/20 06:16 Dose: 1 packet Documented by: Collagenase (Santyl -) 1 applic TP DAILY JOSE; Protocol Last Admin: 02/26/20 09:04 Dose: 1 applic Documented by: Guaifenesin (Robitussin -) 10 ml GT Q4H PRN PRN Reason: COUGH Last Admin: 02/21/20 20:49 Dose: 10 ml Documented by: Midazolam HCl (Midazolam 100mg/100ml-0.9%Nacl) 100 mg in 100 mls @ 1 mls/hr IVPB TITR JOSE; Protocol Last Admin: 02/25/20 11:30 Dose: Not Given Documented by: Sodium Chloride (Normal Saline -) 250 mls @ 3,000 mls/hr IV PRN PRN PRN Reason: Hypotension during Dialysis Stop: 02/21/20 12:37 Norepinephrine Bitartrate (Levophed Bag) 8,000 mcg in 500 mls @ 18.75 mls/hr IVPB TITR JOSE; Protocol Last Admin: 02/25/20 17:30 Dose: 3 mcg/min, 11.25 mls/hr Documented by: Fentanyl (Sublimaze Ivpb) 500 mcg in 100 mls @ 9.435 mls/hr IVPB TITR JOSE Last Admin: 02/25/20 22:05 Dose: 0.53 mcg/kg/hr, 5 mls/hr Documented by: Piperacillin Sod/Tazobactam (Sod 2.25 gm/ Dextrose) 50 mls @ 100 mls/hr IVPB Q8H-IV JOSE; Protocol Last Admin: 02/26/20 09:04 Dose: 100 mls/hr Documented by: Sodium Chloride (Normal Saline -) 250 mls @ 3,000 mls/hr IV PRN PRN PRN Reason: Hypotension during Dialysis Stop: 02/27/20 10:09 Insulin Aspart (Novolog Vial Sliding Scale -) 1 vial SQ Q6HPO JOSE; Protocol Last Admin: 02/26/20 06:13 Dose: 8 units Documented by: Methylprednisolone Sodium Succinate (Solu-Medrol -) 40 mg IVPUSH Q6H-IV JOSE Last Admin: 02/26/20 09:04 Dose: 40 mg Documented by: Pantoprazole Sodium (Protonix Iv) 40 mg IVPUSH DAILY [facility] Last Admin: 02/26/20 09:04 Dose: 40 mg Documented by: - Objective Vital Signs: Vital Signs Temperature 98.2 F 02/26/20 06:50 Pulse Rate 86 02/26/20 08:40 Respiratory Rate 15 02/26/20 08:40 Blood Pressure 124/65 02/26/20 06:50 O2 Sat by Pulse Oximetry (%) 99 02/26/20 08:42 Eyes: Yes: WNL, Conjunctiva Clear, EOM Intact HENT: Yes: WNL, Atraumatic, Normocephalic Neck: Yes: WNL, Supple, Trachea Midline Cardiovascular: Yes: WNL, Regular Rate and Rhythm Respiratory: Yes: Diminished, Intubated, Mechanically Ventilated Gastrointestinal: Yes: WNL, Normal Bowel Sounds Genitourinary: Yes: WNL Musculoskeletal: Yes: WNL Extremities: Yes: WNL Edema: No Integumentary: Yes: WNL Labs: CBC, BMP 02/26/20 05:00 02/26/20 05:00 INR, PTT INR 1.56 (0.83-1.09) H 02/02/20 20:30 Fibrinogen 448.0 mg/dL (238-498) 02/05/20 06:00 Problem List - Problems (1) Altered mental status Code(s): R41.82 - ALTERED MENTAL STATUS, UNSPECIFIED (2) Anemia Code(s): D64.9 - ANEMIA, UNSPECIFIED (3) Lactic acidosis Code(s): E87.2 - ACIDOSIS (4) Pneumonia, aspiration Code(s): J69.0 - PNEUMONITIS DUE TO INHALATION OF FOOD AND VOMIT (5) Stroke Code(s): I63.9 - CEREBRAL INFARCTION, UNSPECIFIED (6) Clotted dialysis access Code(s): T82.49XA - OTH COMPLICATION OF VASCULAR DIALYSIS CATHETER, INIT ENCNTR (7) Diabetes Code(s): E11.9 - TYPE 2 DIABETES MELLITUS WITHOUT COMPLICATIONS (8) ESRD on dialysis Code(s): N18.6 - END STAGE RENAL DISEASE; Z99.2 - DEPENDENCE ON RENAL DIALYSIS (9) Hypertension Code(s): I10 - ESSENTIAL (PRIMARY) HYPERTENSION (10) SOB (shortness of breath) Code(s): R06.02 - SHORTNESS OF BREATH Assessment/Plan 1. Chest pain 2. Chronic diastolic CHF 3. PAF->SR on eliquis 4. CAD s/p stent with demand ischemia, Hx coronary angiogram 2014: patent coronary stent. 5. CKD 6. HLD 7. High degree HB s/p PPM placement 2011, replacement 2018 8. Chemical pancreatitis h/o cholecystectomy 9. Type 2 DM 10. Gout 11. GIB 12. 6.5 MM RLL nodule Plan: 1. Trops plateaued 2. Lasix 40 qd with monitor diuretic response, renal fxn and electrolytes 3. Continue Eliquis 2.5 bid, Lipitor 20 qd, lisinopril 5 qd, Toprol XL 50 qd, recommend bowel regimen 4. Chest CT surveillance of pulm nodule in 6 months per pulmonary 5. Observe off abx per ID
--- NOTE | 2020-02-26 10:26 | PN ---
Progress Note, Physician History of Present Illness: pt seen/ examined in icu chart is reviewed/ events noted Condition same wbc >40 Abx Check c diff Trach to be planned prognosis poor will continue to follow d/w RN also/ icu team cc time approx 35 mins - Current Medication List Current Medications: Active Medications Acetaminophen (Tylenol Oral Solution -) 650 mg GT Q6H PRN PRN Reason: PAIN LEVEL 4 - 6 Last Admin: 02/20/20 21:06 Dose: 650 mg Documented by: Banana Based Medical Food (Banatrol Plus Powder Packet) 1 packet PO TID JOSE Last Admin: 02/26/20 06:16 Dose: 1 packet Documented by: Collagenase (Santyl -) 1 applic TP DAILY JOSE; Protocol Last Admin: 02/26/20 09:04 Dose: 1 applic Documented by: Guaifenesin (Robitussin -) 10 ml GT Q4H PRN PRN Reason: COUGH Last Admin: 02/21/20 20:49 Dose: 10 ml Documented by: Midazolam HCl (Midazolam 100mg/100ml-0.9%Nacl) 100 mg in 100 mls @ 1 mls/hr IVPB TITR JOSE; Protocol Last Admin: 02/25/20 11:30 Dose: Not Given Documented by: Norepinephrine Bitartrate (Levophed Bag) 8,000 mcg in 500 mls @ 18.75 mls/hr IVPB TITR JOSE; Protocol Last Titration: 02/26/20 10:00 Dose: 0 mcg/min, 0 mls/hr Documented by: Fentanyl (Sublimaze Ivpb) 500 mcg in 100 mls @ 9.435 mls/hr IVPB TITR JOSE Last Admin: 02/25/20 22:05 Dose: 0.53 mcg/kg/hr, 5 mls/hr Documented by: Piperacillin Sod/Tazobactam (Sod 2.25 gm/ Dextrose) 50 mls @ 100 mls/hr IVPB Q8H-IV JOSE; Protocol Last Admin: 02/26/20 09:04 Dose: 100 mls/hr Documented by: Sodium Chloride (Normal Saline -) 250 mls @ 3,000 mls/hr IV PRN PRN PRN Reason: Hypotension during Dialysis Stop: 02/27/20 10:09 Insulin Aspart (Novolog Vial Sliding Scale -) 1 vial SQ Q6HPO JOSE; Protocol Last Admin: 02/26/20 06:13 Dose: 8 units Documented by: Methylprednisolone Sodium Succinate (Solu-Medrol -) 40 mg IVPUSH Q6H-IV [facility] Last Admin: 02/26/20 09:04 Dose: 40 mg Documented by: Pantoprazole Sodium (Protonix Iv) 40 mg IVPUSH DAILY [facility] Last Admin: 02/26/20 09:04 Dose: 40 mg Documented by: - Objective Vital Signs: Vital Signs Temperature 98.2 F 02/26/20 06:50 Pulse Rate 86 02/26/20 08:40 Respiratory Rate 15 02/26/20 08:40 Blood Pressure 124/65 02/26/20 06:50 O2 Sat by Pulse Oximetry (%) 99 02/26/20 08:42 Constitutional: Yes: Other (intubated) Cardiovascular: Yes: Regular Rate and Rhythm Respiratory: Yes: Diminished Gastrointestinal: Yes: Soft, Other Edema: No Edema: LLE: Trace Labs: CBC, BMP 02/26/20 05:00 02/26/20 05:00 INR, PTT INR 1.56 (0.83-1.09) H 02/02/20 20:30 Fibrinogen 448.0 mg/dL (238-498) 02/05/20 06:00 Problem List - Problems (1) Stroke Code(s): I63.9 - CEREBRAL INFARCTION, UNSPECIFIED (2) Pneumonia, aspiration Code(s): J69.0 - PNEUMONITIS DUE TO INHALATION OF FOOD AND VOMIT (3) Diabetes Code(s): E11.9 - TYPE 2 DIABETES MELLITUS WITHOUT COMPLICATIONS (4) ESRD on dialysis Code(s): N18.6 - END STAGE RENAL DISEASE; Z99.2 - DEPENDENCE ON RENAL DIALYSIS
[2020-02-26] MEDS: MIDAZOLAM IN 0.9 % SOD.CHLORID 100 MG/100 ML PLAST..BAG IVPB SCH (10:44)
[2020-02-26 12:01] LABS: OVALOCYTE 1+; TARGET CELLS 1+
--- NOTE | 2020-02-26 14:09 | PN ---
Teaching Attending Note Name of Resident: Rupinder Choi ATTENDING PHYSICIAN STATEMENT I saw and evaluated the patient. I reviewed the resident's note and discussed the case with the resident. I agree with the resident's findings and plan as documented. SUBJECTIVE: Pt seen and examined in the ICU. Remains intubated, sedated on levophed gtt. No fevers recorded. OBJECTIVE: Vital Signs Period Temp Pulse Resp BP Sys/Ramirez Pulse Ox Last 24 Hr 98.2 F-98.6 F 72-105 14-31 101-124/54-65 96-100 Intake & Output 02/23/20 02/24/20 02/25/20 02/26/20 23:59 23:59 23:59 23:59 Intake Total 963 081 5161 764 Output Total 47629 Balance -40844 715 1615 764 Weight 46.266 kg 46.266 kg Gen: intubated, sedated Heart: RRR Lung: scattered rhonchi Abd: soft, nontender Ext: no edema CBC, BMP 02/26/20 05:00 02/26/20 05:00 Active Medications Acetaminophen (Tylenol Oral Solution -) 650 mg GT Q6H PRN PRN Reason: PAIN LEVEL 4 - 6 Last Admin: 02/20/20 21:06 Dose: 650 mg Documented by: Banana Based Medical Food (Banatrol Plus Powder Packet) 1 packet PO TID JOSE Last Admin: 02/26/20 06:16 Dose: 1 packet Documented by: Collagenase (Santyl -) 1 applic TP DAILY JOSE; Protocol Last Admin: 02/26/20 09:04 Dose: 1 applic Documented by: Guaifenesin (Robitussin -) 10 ml GT Q4H PRN PRN Reason: COUGH Last Admin: 02/21/20 20:49 Dose: 10 ml Documented by: Midazolam HCl (Midazolam 100mg/100ml-0.9%Nacl) 100 mg in 100 mls @ 1 mls/hr IVPB TITR JOSE; Protocol Last Admin: 02/26/20 10:44 Dose: Not Given Documented by: Norepinephrine Bitartrate (Levophed Bag) 8,000 mcg in 500 mls @ 18.75 mls/hr IVPB TITR JOSE; Protocol Last Titration: 02/26/20 10:00 Dose: 0 mcg/min, 0 mls/hr Documented by: Fentanyl (Sublimaze Ivpb) 500 mcg in 100 mls @ 9.435 mls/hr IVPB TITR JOSE Last Admin: 02/25/20 22:05 Dose: 0.53 mcg/kg/hr, 5 mls/hr Documented by: Piperacillin Sod/Tazobactam (Sod 2.25 gm/ Dextrose) 50 mls @ 100 mls/hr IVPB Q8H-IV JOSE; Protocol Last Admin: 02/26/20 09:04 Dose: 100 mls/hr Documented by: Sodium Chloride (Normal Saline -) 250 mls @ 3,000 mls/hr IV PRN PRN PRN Reason: Hypotension during Dialysis Stop: 02/27/20 10:09 Insulin Aspart (Novolog Vial Sliding Scale -) 1 vial SQ Q6HPO JOSE; Protocol Last Admin: 02/26/20 12:38 Dose: 8 units Documented by: Methylprednisolone Sodium Succinate (Solu-Medrol -) 40 mg IVPUSH Q6H-IV JOSE Last Admin: 02/26/20 09:04 Dose: 40 mg Documented by: Pantoprazole Sodium (Protonix Iv) 40 mg IVPUSH DAILY JOSE Last Admin: 02/26/20 09:04 Dose: 40 mg Documented by: ASSESSMENT AND PLAN: Acute Hypoxic Respiratory Failure Acute CVA Pneumonia likely Aspiration Proteus Bacteremia ESRD on HD HTN DM Hyperlipidemia h/o CVA - continue antibiotics - titrate pressors to maintain MAP >65 - HD per renal - taper off medrol - inhaled bronchodilators - titrate FiO2, PEEP to keep SpO2 >90% - enteral feeds - DVT/GI prophylaxis - will need tracheostomy for recurrent respiratory failure likely from aspirati on - continue ICU monitoring critical care time spent in reviewing chart, evaluating patient and formulating plan 35 min
--- NOTE | 2020-02-26 14:54 | PN ---
Progress Note, Physician Chief Complaint: INTUBATED IN ICU BREATHING NON-LABORED BC PROTEUS SP. OFF PRESSORS FOR TRACH - Current Medication List Current Medications: Active Medications Acetaminophen (Tylenol Oral Solution -) 650 mg GT Q6H PRN PRN Reason: PAIN LEVEL 4 - 6 Last Admin: 02/20/20 21:06 Dose: 650 mg Documented by: Banana Based Medical Food (Banatrol Plus Powder Packet) 1 packet PO TID JOSE Last Admin: 02/26/20 06:16 Dose: 1 packet Documented by: Collagenase (Santyl -) 1 applic TP DAILY JOSE; Protocol Last Admin: 02/26/20 09:04 Dose: 1 applic Documented by: Guaifenesin (Robitussin -) 10 ml GT Q4H PRN PRN Reason: COUGH Last Admin: 02/21/20 20:49 Dose: 10 ml Documented by: Midazolam HCl (Midazolam 100mg/100ml-0.9%Nacl) 100 mg in 100 mls @ 1 mls/hr IVPB TITR JOSE; Protocol Last Admin: 02/26/20 10:44 Dose: Not Given Documented by: Norepinephrine Bitartrate (Levophed Bag) 8,000 mcg in 500 mls @ 18.75 mls/hr IVPB TITR JOSE; Protocol Last Titration: 02/26/20 10:00 Dose: 0 mcg/min, 0 mls/hr Documented by: Fentanyl (Sublimaze Ivpb) 500 mcg in 100 mls @ 9.435 mls/hr IVPB TITR JOSE Last Admin: 02/25/20 22:05 Dose: 0.53 mcg/kg/hr, 5 mls/hr Documented by: Piperacillin Sod/Tazobactam (Sod 2.25 gm/ Dextrose) 50 mls @ 100 mls/hr IVPB Q8H-IV JOSE; Protocol Last Admin: 02/26/20 09:04 Dose: 100 mls/hr Documented by: Sodium Chloride (Normal Saline -) 250 mls @ 3,000 mls/hr IV PRN PRN PRN Reason: Hypotension during Dialysis Stop: 02/27/20 10:09 Insulin Aspart (Novolog Vial Sliding Scale -) 1 vial SQ Q6HPO JOSE; Protocol Last Admin: 02/26/20 12:38 Dose: 8 units Documented by: Methylprednisolone Sodium Succinate (Solu-Medrol -) 40 mg IVPUSH Q6H-IV [facility] Last Admin: 02/26/20 09:04 Dose: 40 mg Documented by: Pantoprazole Sodium (Protonix Iv) 40 mg IVPUSH DAILY [facility] Last Admin: 02/26/20 09:04 Dose: 40 mg Documented by: - Objective Vital Signs: Vital Signs Temperature 98.2 F 02/26/20 06:50 Pulse Rate 92 H 02/26/20 11:00 Respiratory Rate 15 02/26/20 12:10 Blood Pressure 101/54 L 02/26/20 11:00 O2 Sat by Pulse Oximetry (%) 97 02/26/20 12:28 Constitutional: Yes: No Distress Eyes: Yes: Conjunctiva Clear Cardiovascular: Yes: Regular Rate and Rhythm, S1, S2 Respiratory: Yes: Mechanically Ventilated Gastrointestinal: Yes: Normal Bowel Sounds, Soft. No: Tenderness Labs: CBC, BMP 02/26/20 05:00 02/26/20 05:00 INR, PTT INR 1.56 (0.83-1.09) H 02/02/20 20:30 Fibrinogen 448.0 mg/dL (238-498) 02/05/20 06:00 Assessment/Plan ACUTE RESP FAILURE R/O HCAP GRAM NEGATIVE BACTEREMIA S/P ACUTE CVA S/P RLL PNEUMONIA ESRD LEUKOCYTOSIS OBS CONTINUE ZOSYN VENTILATORY SUPPORT PROGNOSIS POOR
[2020-02-26] MEDS ORDERED: fentaNYL CITRATE 250 MCG/5 ML VIAL ONE (16:43)
[2020-02-26] MEDS: NOREPINEPHRINE BITARTRATE 8,000 MCG/500 ML BAG IVPB SCH (16:45)
[2020-02-26] MEDS: FENTANYL IVPB 500 MCG/100 ML BAG IVPB SCH ×2 (16:48→21:15)
--- NOTE | 2020-02-26 17:36 | PN ---
Progress Note (short form) - Note Progress Note: 74 year old female brought patient from [place] for unreponsivness for two days prior to admission. Patient has history of stroke three months ago and has been decline since than. Patient has no seizure, she has high wbc and suspected to have aspiration pneumonia. Patient has large right mca cerebral edema. Patient has detiorated and developed hypoxia andshe got intubated and trasnferred to icu, patient is sedated and intubated. patient is sedated on ventilator. Chart reviewd, spoke to nursing staff, no new symptoms. She has been off pressors, and off sedation ( still on fentanyl), patient has been grimmcing bu tno meaningful response. NEUROLOGICAL EXAMINATION Patient is comatosed, no response to pain or verbal stimuli( off sedation gag reflex corneal reflex is present not breathing above vent neck is supple pupils is small sluggsihly reactive gag and corneal reflex is present bp is maintained ct head showed large right mca cerebral edema with minimal hemorrhagic transformation repeat ct head done on january 28 Assessment/Plan 1. Large right mca acute stroke also old left mca stroke, now bi hemispheric stroke - continue supportive care - prongosis is not good , spoke to daughter at bed side 2. Respiratory failure secondary to aspiration pneumonia - Abx as per ID - Supportive care - ventilator care as per ICU - 35 min cc time. Pippa sol so much Norman Plascencia MD
--- NOTE | 2020-02-26 20:25 | PN ---
Physical Exam: SUBJECTIVE: Patient seen and examined bedside. Unresponsive. No events overnight. OBJECTIVE: Vital Signs Temp Pulse Resp BP Pulse Ox 97.6 F 88 20 91/71 96 02/26/20 17:00 02/26/20 19:30 02/26/20 19:30 02/26/20 19:30 02/26/20 17:00 GENERAL: The patient not alert, intubated, non responsive to painful stimuli HEAD: Normal with no signs of trauma. NECK: L IJ line LUNGS: decreased breath sounds BL HEART: RRR S1, S2 without ABDOMEN: Soft, nontender, nondistended EXTREMITIES: warm, well-perfused, no edema. NEUROLOGICAL: nonresponsive Intake & Output 02/23/20 02/24/20 02/25/20 02/26/20 23:59 23:59 23:59 23:59 Intake Total 466 940 2727 1137 Output Total 30490 2973 Balance -39593 715 1615 -1836 Weight 102 lb 102 lb Laboratory Results - last 24 hr 02/25/20 02/26/20 02/26/20 23:31 05:00 05:00 WBC 45.9 H* RBC 2.79 L Hgb 8.2 L Hct 26.3 L MCV 94.3 MCH 29.6 MCHC 31.3 L RDW 18.0 H Plt Count 639 H MPV 9.8 Absolute Neuts (auto) 44.5 H Total Counted 100 Neutrophils % 97.0 H Neutrophils % (Manual) 97.0 H Band Neutrophils % 1.0 Lymphocytes % 1.3 L D Lymphocytes % (Manual) 1.0 L D Monocytes % 1.4 L Monocytes % (Manual) 1 L Eosinophils % 0.1 D Basophils % 0.2 Nucleated RBC % 0 Spherocytes 1+ Target Cells 1+ Ovalocytes 1+ Anticoagulation Therapy Puncture Site Patient Temperature ABG pH ABG pCO2 ABG pO2 ABG HCO3 ABG O2 Sat (Measured) ABG O2 Content ABG Base Excess Sai Test Patient On Oxygen O2 Delivery Device Oxygen Flow Rate Vent Mode Vent Rate Mechanical Rate PEEP Pressure Support Vent Sodium 135 L Potassium 4.3 Chloride 94 L Carbon Dioxide 24 Anion Gap 17 H BUN 98.5 H Creatinine 3.8 H Est GFR (CKD-EPI)AfAm 12.62 Est GFR (CKD-EPI)NonAf 10.89 POC Glucometer 338 Random Glucose 344 H Calcium 8.3 L Phosphorus 4.2 Magnesium 2.4 Total Bilirubin 0.3 AST 14 L ALT 13 Alkaline Phosphatase 449 H Total Protein 5.7 L Albumin 1.7 L 02/26/20 02/26/20 02/26/20 05:35 06:11 12:23 WBC RBC Hgb Hct MCV MCH MCHC RDW Plt Count MPV Absolute Neuts (auto) Total Counted Neutrophils % Neutrophils % (Manual) Band Neutrophils % Lymphocytes % Lymphocytes % (Manual) Monocytes % Monocytes % (Manual) Eosinophils % Basophils % Nucleated RBC % Spherocytes Target Cells Ovalocytes Anticoagulation Therapy No Result Required. Puncture Site Right radial Patient Temperature No Result Required. ABG pH 7.372 ABG pCO2 36.90 ABG pO2 127.8 H ABG HCO3 20.9 L ABG O2 Sat (Measured) 98.5 H ABG O2 Content No Result Required. ABG Base Excess -3.9 L Sai Test Positive Patient On Oxygen Yes O2 Delivery Device Vent Oxygen Flow Rate 50% Vent Mode A/c Vent Rate 14 Mechanical Rate Yes PEEP 8.0 Pressure Support Vent 450 Sodium Potassium Chloride Carbon Dioxide Anion Gap BUN Creatinine Est GFR (CKD-EPI)AfAm Est GFR (CKD-EPI)NonAf POC Glucometer 311 349 Random Glucose Calcium Phosphorus Magnesium Total Bilirubin AST ALT Alkaline Phosphatase Total Protein Albumin 02/26/20 18:17 WBC RBC Hgb Hct MCV MCH MCHC RDW Plt Count MPV Absolute Neuts (auto) Total Counted Neutrophils % Neutrophils % (Manual) Band Neutrophils % Lymphocytes % Lymphocytes % (Manual) Monocytes % Monocytes % (Manual) Eosinophils % Basophils % Nucleated RBC % Spherocytes Target Cells Ovalocytes Anticoagulation Therapy Puncture Site Patient Temperature ABG pH ABG pCO2 ABG pO2 ABG HCO3 ABG O2 Sat (Measured) ABG O2 Content ABG Base Excess Sai Test Patient On Oxygen O2 Delivery Device Oxygen Flow Rate Vent Mode Vent Rate Mechanical Rate PEEP Pressure Support Vent Sodium Potassium Chloride Carbon Dioxide Anion Gap BUN Creatinine Est GFR (CKD-EPI)AfAm Est GFR (CKD-EPI)NonAf POC Glucometer 236 Random Glucose Calcium Phosphorus Magnesium Total Bilirubin AST ALT Alkaline Phosphatase Total Protein Albumin Active Medications Generic Name Dose Route Start Last Admin Trade Name Freq PRN Reason Stop Dose Admin Acetaminophen 650 mg 02/19/20 20:56 02/20/20 21:06 Tylenol Oral Solution - GT 650 mg Q6H PRN Administration PAIN LEVEL 4 - 6 Banana Based Medical Food 1 packet 02/25/20 14:00 02/26/20 15:11 Banatrol Plus Powder Packet PO 1 packet TID JOSE Administration Collagenase 1 applic 02/09/20 10:00 02/26/20 09:04 Santyl - TP 1 applic DAILY JOSE Administration Protocol Guaifenesin 10 ml 02/19/20 20:56 02/21/20 20:49 Robitussin - GT 10 ml Q4H PRN Administration COUGH Midazolam HCl 100 mg in 100 mls @ 1 mls/hr 02/20/20 11:30 02/26/20 10:44 Midazolam 100mg/100ml-0.9%Nacl IVPB Not Given TITR JOSE Protocol 1 MG/HR Norepinephrine Bitartrate 8,000 mcg in 500 mls @ 18.75 mls/hr 02/20/20 15:15 02/26/20 16:45 Levophed Bag IVPB 5 mcg/min TITR JOSE 18.75 mls/hr Administration Protocol 5 MCG/MIN Fentanyl 500 mcg in 100 mls @ 9.435 mls/hr 02/20/20 21:00 02/26/20 16:48 Sublimaze Ivpb IVPB 0.53 mcg/kg/hr TITR JOSE 5 mls/hr Administration 1 MCG/KG/HR Piperacillin Sod/Tazobactam 50 mls @ 100 mls/hr 02/23/20 18:00 02/26/20 09:04 Sod 2.25 gm/ Dextrose IVPB 100 mls/hr Q8H-IV JOSE Administration Protocol Sodium Chloride 250 mls @ 3,000 mls/hr 02/26/20 10:08 Normal Saline - IV 02/27/20 10:09 PRN PRN Hypotension during Dialysis Insulin Aspart 1 vial 02/25/20 08:32 02/26/20 18:21 Novolog Vial Sliding Scale - SQ 4 units Q6HPO JOSE Administration Protocol Methylprednisolone Sodium Succinate 40 mg 02/21/20 09:00 02/26/20 15:11 Solu-Medrol - IVPUSH 40 mg Q6H-IV JOSE Administration Pantoprazole Sodium 40 mg 02/21/20 10:00 02/26/20 09:04 Protonix Iv IVPUSH 40 mg DAILY JOSE Administration ASSESSMENT/PLAN: 74 year old female w/ PMH of CVA, ESRD on HD, HTN, HLD, DM, sacral ulcer admit talib to ICU for acute hypoxic respiratory failure. Neuro - CVA - intubated on fentanyl - off sedation Pulm - intubated TV 450 RR 14 FIO2 50 PEEP-8 - medrol 40q6H - duoenbs - aspiration precautions - consult for trach tomorrow, doctor not in today Cardio - HTN, HLD - on levo - maintain MAP > 65 - hold antihypertensives Renal - ESRD on HD HD for today - monitor electrolytes - monitor i's and o's - avoid nephrotoxic agents - renal following (Dr. Hong) ENDO - DM - BGMS ISS ACHS GI - 40 IV protonix daily ID - ID on board (Dr. Ulloa) - repeat cultures today - zosyn: day 7 FEN - NS 250 cc/hr - monitor electrolytes - enteral feeds Lines - L IJ placed 02/20 dvt ppx: - scds in light of previous bleed code status: - full code as per HCP ongoing GOC discussion: palliative care consult and ethics consult placed. - family wants trach Visit type - Emergency Visit Emergency Visit: Yes ED Registration Date: 01/15/20 Care time: The patient presented to the Emergency Department on the above date and was hospitalized for further evaluation of their emergent condition. - New Patient This patient is new to me today: Yes Date on this admission: 02/26/20 - Critical Care Critical Care patient: Yes Total Critical Care Time (in minutes): 35 Critical Care Statement: The care of this patient involved high complexity decision making to prevent further life threatening deterioration of the patient's condition and/or to evaluate & treat vital organ system(s) failure or risk of failure. - Discharge Referral Referred to [facility] No - Medication Review Med list reviewed for High Risk Meds patients 65 and older: Yes ATTENDING PHYSICIAN STATEMENT I saw and evaluated the patient. I reviewed the resident's note and discussed the case with the resident. I agree with the resident's findings and plan as documented. SUBJECTIVE: OBJECTIVE: ASSESSMENT AND PLAN:
[2020-02-27] MEDS ORDERED: PIPERACILLIN/TAZOBACTAM 2.25 GM VIAL IVPB ONE ×3 (02:44→17:19)
[2020-02-27] MEDS ORDERED: DEXTROSE 5%-WATER - 50 ML IVPB ONE ×3 (02:45→17:19)
[2020-02-27] MEDS: INSULIN SLIDING SCALE (NOVOLOG) 1 VIAL SQ SCH ×4 (02:49→17:24)
[2020-02-27] MEDS: PIPERACILLIN/TAZOB 2.25 GM 2.25 GM in DEXTROSE 5%-WATER - 50 ML IVPB SCH ×3 (02:50→17:25)
[2020-02-27] MEDS: methylPREDNISolone NA SUCC 40 MG/1 ML VIAL IVPUSH SCH ×2 (02:51→09:49)
[2020-02-27 06:32] LABS: ARTERIAL BLD GAS O2 SATURATION 97.3 mmHg (95-98); ARTERIAL BLOOD GAS BASE EXCESS -1.4 mmol/L (-2-2); ARTERIAL BLOOD GAS PO2 97.2 mmHg (80-100); ARTERIAL BLOOD GAS pH 7.388 (7.350-7.450)
[2020-02-27] MEDS: BANATROL PLUS POWDER PACKET PO SCH ×3 (06:32→21:40)
[2020-02-27 06:48] LABS: ALLENS TEST POSITIVE; VENT MODE A/C; VENT RATE 14
[2020-02-27 06:58] LABS: BASO % 0.2 % (0-2.0); HEMATOCRIT 25.2 % (32.4-45.2); HEMOGLOBIN 7.9 GM/dL (10.7-15.3); LYMPH % 1.6 % (8-40); MCH 29.7 pg (25.7-33.7); MCHC 31.2 g/dl (32.0-36.0); MEAN CELL VOLUME 94.9 fl (80-96); MEAN PLT VOLUME 9.8 fl (7.5-11.1); MONO % 2.7 % (3.8-10.2); NEUT % 95.5 % (42.8-82.8); PLATELET COUNT 508 K/MM3 (134-434); RBC 2.65 M/mm3 (3.60-5.2); RDW 18.4 % (11.6-15.6)
[2020-02-27 07:26] LABS: WHITE BLOOD COUNT 33.8 K/mm3 (4.0-10.0)
[2020-02-27 07:34] LABS: ALBUMIN 1.5 g/dl (3.4-5.0); BILIRUBIN,TOTAL 0.3 mg/dL (0.2-1); BLOOD UREA NITROGEN 64.9 mg/dL (7-18); CALCIUM 8.1 mg/dL (8.5-10.1); CREATININE 2.5 mg/dL (0.55-1.3); PHOSPHOROUS 3.7 mg/dL (2.5-4.9); POTASSIUM 3.7 mmol/L (3.5-5.1); TOT PROT 5.4 g/dl (6.4-8.2)
[2020-02-27] MEDS: COLLAGENASE CLOSTRIDIUM HIST. 30 GRAMS TUBE TP SCH (09:49)
[2020-02-27] MEDS: PANTOPRAZOLE SODIUM 40 MG VIAL IVPUSH SCH (09:49)
[2020-02-27 11:11] LABS: ANISOCYTOSIS 0; MACROCYTOSIS 0; PLATELET ESTIMATE INCREASED
--- NOTE | 2020-02-27 11:38 | PN ---
Progress Note (short form) - Note Progress Note: pt is in ICU intubated no changes Vital Signs - 24 hr 02/26/20 02/26/20 02/26/20 13:00 15:00 16:28 Temperature 97.9 F 97.8 F Pulse Rate 87 86 Respiratory 14 14 14 Rate Blood Pressure 106/52 L 101/51 L O2 Sat by Pulse 100 99 Oximetry (%) 02/26/20 02/26/20 02/26/20 16:55 17:00 17:30 Temperature 98.2 F 97.6 F Pulse Rate 60 90 89 Respiratory 14 14 14 Rate Blood Pressure 101/57 L 93/64 102/56 L O2 Sat by Pulse 96 Oximetry (%) 02/26/20 02/26/20 02/26/20 18:00 18:30 19:00 Temperature 98 F Pulse Rate 88 91 H 84 Respiratory 15 17 16 Rate Blood Pressure 93/64 102/91 91/71 O2 Sat by Pulse 99 Oximetry (%) 02/26/20 02/26/20 02/26/20 19:30 20:00 20:05 Temperature Pulse Rate 88 90 88 Respiratory 20 20 19 Rate Blood Pressure 91/71 106/67 111/62 O2 Sat by Pulse Oximetry (%) 02/26/20 02/26/20 02/26/20 20:15 21:00 23:00 Temperature 98 F 98.5 F Pulse Rate 69 74 Respiratory 18 14 14 Rate Blood Pressure 142/61 128/62 O2 Sat by Pulse 92 L 92 L 100 Oximetry (%) 02/27/20 02/27/20 02/27/20 00:30 01:00 03:00 Temperature 98.2 F 98.1 F Pulse Rate 76 83 Respiratory 14 14 14 Rate Blood Pressure 123/62 123/58 L O2 Sat by Pulse 100 100 Oximetry (%) 02/27/20 02/27/20 02/27/20 03:22 03:23 04:25 Temperature Pulse Rate Respiratory 14 14 Rate Blood Pressure O2 Sat by Pulse 100 100 Oximetry (%) 02/27/20 02/27/20 02/27/20 05:00 07:00 08:00 Temperature 98.2 F 98.2 F Pulse Rate 85 83 85 Respiratory 14 14 13 Rate Blood Pressure 107/59 L 97/57 L 105/62 O2 Sat by Pulse 99 91 L 100 Oximetry (%) 02/27/20 02/27/20 10:00 12:00 Temperature 97.6 F Pulse Rate 81 92 H Respiratory 13 14 Rate Blood Pressure 122/60 130/65 O2 Sat by Pulse 100 100 Oximetry (%) Current Medications Generic Name Dose Route Start Last Admin Trade Name Freq PRN Reason Stop Dose Admin Acetaminophen 650 mg 02/19/20 20:56 02/20/20 21:06 Tylenol Oral Solution - GT 650 mg Q6H PRN Administration PAIN LEVEL 4 - 6 Banana Based Medical Food 1 packet 02/25/20 14:00 02/27/20 06:32 Banatrol Plus Powder Packet PO 1 packet TID JOSE Administration Collagenase 1 applic 02/09/20 10:00 02/27/20 09:49 Santyl - TP 1 applic DAILY JOSE Administration Protocol Guaifenesin 10 ml 02/19/20 20:56 02/21/20 20:49 Robitussin - GT 10 ml Q4H PRN Administration COUGH Norepinephrine Bitartrate 8,000 mcg in 500 mls @ 18.75 mls/hr 02/20/20 15:15 02/26/20 16:45 Levophed Bag IVPB 5 mcg/min TITR JOSE 18.75 mls/hr Administration Protocol 5 MCG/MIN Fentanyl 500 mcg in 100 mls @ 9.435 mls/hr 02/20/20 21:00 02/26/20 21:15 Sublimaze Ivpb IVPB Not Given TITR JOSE 1 MCG/KG/HR Piperacillin Sod/Tazobactam 50 mls @ 100 mls/hr 02/23/20 18:00 02/27/20 09:49 Sod 2.25 gm/ Dextrose IVPB 100 mls/hr Q8H-IV JOSE Administration Protocol Sodium Chloride 250 mls @ 3,000 mls/hr 02/26/20 10:08 Normal Saline - IV 02/27/20 10:09 PRN PRN Hypotension during Dialysis Insulin Aspart 1 vial 02/25/20 08:32 02/27/20 06:33 Novolog Vial Sliding Scale - SQ 6 units Q6HPO JOSE Administration Protocol Methylprednisolone Sodium Succinate 40 mg 02/21/20 09:00 02/27/20 09:49 Solu-Medrol - IVPUSH 40 mg Q6H-IV JOSE Administration Pantoprazole Sodium 40 mg 02/21/20 10:00 02/27/20 09:49 Protonix Iv IVPUSH 40 mg DAILY JOSE Administration Laboratory Results - last 24 hr 02/26/20 02/27/20 02/27/20 18:17 02:43 05:00 WBC 33.8 H* RBC 2.65 L Hgb 7.9 L Hct 25.2 L MCV 94.9 MCH 29.7 MCHC 31.2 L RDW 18.4 H Plt Count 508 H D MPV 9.8 Absolute Neuts (auto) 32.2 H Neutrophils % 95.5 H Neutrophils % (Manual) 93.3 H Band Neutrophils % 0.0 Lymphocytes % 1.6 L D Lymphocytes % (Manual) 4.8 L D Monocytes % 2.7 L D Monocytes % (Manual) 1 L Eosinophils % 0.0 D Eosinophils % (Manual) 0.0 Basophils % 0.2 Basophils % (Manual) 0.0 Myelocytes % (Man) 1 D Promyelocytes % (Man) 0 Blast Cells % (Manual) 0 Nucleated RBC % 0 Metamyelocytes 0 Hypochromia 0 Platelet Estimate Increased Polychromasia 0 Poikilocytosis 0 Anisocytosis 0 Microcytosis 0 Macrocytosis 0 Anticoagulation Therapy Puncture Site Patient Temperature ABG pH ABG pCO2 ABG pO2 ABG HCO3 ABG O2 Sat (Measured) ABG O2 Content ABG Base Excess Sai Test Patient On Oxygen O2 Delivery Device Oxygen Flow Rate Vent Mode Vent Rate Mechanical Rate PEEP Pressure Support Vent Sodium Potassium Chloride Carbon Dioxide Anion Gap BUN Creatinine Est GFR (CKD-EPI)AfAm Est GFR (CKD-EPI)NonAf POC Glucometer 236 351 Random Glucose Calcium Phosphorus Magnesium Total Bilirubin AST ALT Alkaline Phosphatase Total Protein Albumin 02/27/20 02/27/20 02/27/20 05:00 05:55 06:28 WBC RBC Hgb Hct MCV MCH MCHC RDW Plt Count MPV Absolute Neuts (auto) Neutrophils % Neutrophils % (Manual) Band Neutrophils % Lymphocytes % Lymphocytes % (Manual) Monocytes % Monocytes % (Manual) Eosinophils % Eosinophils % (Manual) Basophils % Basophils % (Manual) Myelocytes % (Man) Promyelocytes % (Man) Blast Cells % (Manual) Nucleated RBC % Metamyelocytes Hypochromia Platelet Estimate Polychromasia Poikilocytosis Anisocytosis Microcytosis Macrocytosis Anticoagulation Therapy No Result Required. Puncture Site Left radial Patient Temperature No Result Required. ABG pH 7.388 ABG pCO2 39.90 ABG pO2 97.2 ABG HCO3 23.5 ABG O2 Sat (Measured) 97.3 ABG O2 Content No Result Required. ABG Base Excess -1.4 Sai Test Positive Patient On Oxygen Yes O2 Delivery Device Vent Oxygen Flow Rate 50% Vent Mode A/c Vent Rate 14 Mechanical Rate Yes PEEP 5.0 Pressure Support Vent 450 Sodium 136 Potassium 3.7 Chloride 97 L Carbon Dioxide 26 Anion Gap 13 BUN 64.9 H Creatinine 2.5 H Est GFR (CKD-EPI)AfAm 20.93 Est GFR (CKD-EPI)NonAf 18.06 POC Glucometer 286 Random Glucose 340 H Calcium 8.1 L Phosphorus 3.7 Magnesium 2.0 Total Bilirubin 0.3 AST 14 L ALT 14 Alkaline Phosphatase 468 H Total Protein 5.4 L Albumin 1.5 L S1 S2 RRR left side edematous Lungs decreased Abd- soft, NT, GT+ No edema intubated ,sedated ct head showed large right mca cerebral edema with minimal hemorrhagic transformation repeat ct head done on january 28 A/P acute respiratory failure fever 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 ESRD on HD aspiration pneumonia acute respiratory failure -proteus in blood sepsis -- iv antibiotics per ID -- pt is FULL CODE -- continue with current care -- for trach placement tomorrow -- poor prognosis -- vent management per ICU -- pressor support as needed -- family wishes to continue current management including dialysis Problem List - Problems (1) Altered mental status Code(s): R41.82 - ALTERED MENTAL STATUS, UNSPECIFIED (2) Lactic acidosis Code(s): E87.2 - ACIDOSIS (3) Pneumonia, aspiration Code(s): J69.0 - PNEUMONITIS DUE TO INHALATION OF FOOD AND VOMIT (4) Stroke Code(s): I63.9 - CEREBRAL INFARCTION, UNSPECIFIED (5) ESRD on dialysis Code(s): N18.6 - END STAGE RENAL DISEASE; Z99.2 - DEPENDENCE ON RENAL DIALYSIS (6) Hypertension Code(s): I10 - ESSENTIAL (PRIMARY) HYPERTENSION
--- NOTE | 2020-02-27 12:34 | PN ---
Teaching Attending Note Name of Resident: Rupinder Choi ATTENDING PHYSICIAN STATEMENT I saw and evaluated the patient. I reviewed the resident's note and discussed the case with the resident. I agree with the resident's findings and plan as documented. SUBJECTIVE: Pt seen and examined in the ICU. Remains intubated, sedated. Off levophed gtt. No fevers recorded. OBJECTIVE: Vital Signs Period Temp Pulse Resp BP Sys/Ramirez Pulse Ox Last 24 Hr 97.6 F-98.5 F 60-96 13-20 91-142/51-91 91-100 Intake & Output 02/24/20 02/25/20 02/26/20 02/27/20 23:59 23:59 23:59 23:59 Intake Total 715 0157 8595 067 Output Total 0953 800 Balance 713 1225 -4906 -526 Weight 46.266 kg 46.266 kg Gen: intubated, sedated Heart: RRR Lung: scattered rhonchi Abd: soft, nontender Ext: no edema CBC, BMP 02/27/20 05:00 02/27/20 05:00 Active Medications Acetaminophen (Tylenol Oral Solution -) 650 mg GT Q6H PRN PRN Reason: PAIN LEVEL 4 - 6 Last Admin: 02/20/20 21:06 Dose: 650 mg Documented by: Banana Based Medical Food (Banatrol Plus Powder Packet) 1 packet PO TID JOSE Last Admin: 02/27/20 06:32 Dose: 1 packet Documented by: Collagenase (Santyl -) 1 applic TP DAILY JOSE; Protocol Last Admin: 02/27/20 09:49 Dose: 1 applic Documented by: Guaifenesin (Robitussin -) 10 ml GT Q4H PRN PRN Reason: COUGH Last Admin: 02/21/20 20:49 Dose: 10 ml Documented by: Norepinephrine Bitartrate (Levophed Bag) 8,000 mcg in 500 mls @ 18.75 mls/hr IVPB TITR JOSE; Protocol Last Admin: 02/26/20 16:45 Dose: 5 mcg/min, 18.75 mls/hr Documented by: Fentanyl (Sublimaze Ivpb) 500 mcg in 100 mls @ 9.435 mls/hr IVPB TITR JOSE Last Admin: 02/26/20 21:15 Dose: Not Given Documented by: Piperacillin Sod/Tazobactam (Sod 2.25 gm/ Dextrose) 50 mls @ 100 mls/hr IVPB Q8H-IV JOSE; Protocol Last Admin: 02/27/20 09:49 Dose: 100 mls/hr Documented by: Sodium Chloride (Normal Saline -) 250 mls @ 3,000 mls/hr IV PRN PRN PRN Reason: Hypotension during Dialysis Stop: 02/27/20 10:09 Insulin Aspart (Novolog Vial Sliding Scale -) 1 vial SQ Q6HPO JOSE; Protocol Last Admin: 02/27/20 06:33 Dose: 6 units Documented by: Methylprednisolone Sodium Succinate (Solu-Medrol -) 40 mg IVPUSH Q6H-IV JOSE Last Admin: 02/27/20 09:49 Dose: 40 mg Documented by: Pantoprazole Sodium (Protonix Iv) 40 mg IVPUSH DAILY JOSE Last Admin: 02/27/20 09:49 Dose: 40 mg Documented by: ASSESSMENT AND PLAN: Acute Hypoxic Respiratory Failure Acute CVA Pneumonia likely Aspiration Proteus Bacteremia ESRD on HD HTN DM Hyperlipidemia h/o CVA - continue antibiotics - titrate pressors to maintain MAP >65 - HD per renal - taper off medrol - inhaled bronchodilators - titrate FiO2, PEEP to keep SpO2 >90% - enteral feeds - DVT/GI prophylaxis - will need tracheostomy for recurrent respiratory failure likely from aspiration - for tracheostomy in AM - continue ICU monitoring critical care time spent in reviewing chart, evaluating patient and formulating plan 35 min
--- NOTE | 2020-02-27 17:12 | PN ---
Physical Exam: SUBJECTIVE: Patient seen and examined bedside. Non arousable. No events overnight. OBJECTIVE: Vital Signs Temp Pulse Resp BP Pulse Ox 97.6 F 83 14 111/60 100 02/27/20 10:00 02/27/20 14:00 02/27/20 14:00 02/27/20 14:00 02/27/20 14:00 GENERAL: The patient not alert, intubated, off sedation HEAD: Normal with no signs of trauma. NECK: L IJ line LUNGS: venti breath sounds HEART: RRR S1, S2 without ABDOMEN: Soft, nontender, nondistended EXTREMITIES: warm, well-perfused, no edema. NEUROLOGICAL: nonresponsive Intake & Output 02/24/20 02/25/20 02/26/20 02/27/20 23:59 23:59 23:59 23:59 Intake Total 715 1615 1337 274 Output Total 5573 800 Balance 715 1615 -4236 -526 Weight 102 lb 102 lb Laboratory Results - last 24 hr 02/26/20 02/27/20 02/27/20 18:17 02:43 05:00 WBC 33.8 H* RBC 2.65 L Hgb 7.9 L Hct 25.2 L MCV 94.9 MCH 29.7 MCHC 31.2 L RDW 18.4 H Plt Count 508 H D MPV 9.8 Absolute Neuts (auto) 32.2 H Neutrophils % 95.5 H Neutrophils % (Manual) 93.3 H Band Neutrophils % 0.0 Lymphocytes % 1.6 L D Lymphocytes % (Manual) 4.8 L D Monocytes % 2.7 L D Monocytes % (Manual) 1 L Eosinophils % 0.0 D Eosinophils % (Manual) 0.0 Basophils % 0.2 Basophils % (Manual) 0.0 Myelocytes % (Man) 1 D Promyelocytes % (Man) 0 Blast Cells % (Manual) 0 Nucleated RBC % 0 Metamyelocytes 0 Hypochromia 0 Platelet Estimate Increased Polychromasia 0 Poikilocytosis 0 Anisocytosis 0 Microcytosis 0 Macrocytosis 0 Anticoagulation Therapy Puncture Site Patient Temperature ABG pH ABG pCO2 ABG pO2 ABG HCO3 ABG O2 Sat (Measured) ABG O2 Content ABG Base Excess Sai Test Patient On Oxygen O2 Delivery Device Oxygen Flow Rate Vent Mode Vent Rate Mechanical Rate PEEP Pressure Support Vent Sodium Potassium Chloride Carbon Dioxide Anion Gap BUN Creatinine Est GFR (CKD-EPI)AfAm Est GFR (CKD-EPI)NonAf POC Glucometer 236 351 Random Glucose Calcium Phosphorus Magnesium Total Bilirubin AST ALT Alkaline Phosphatase Total Protein Albumin 02/27/20 02/27/20 02/27/20 05:00 05:55 06:28 WBC RBC Hgb Hct MCV MCH MCHC RDW Plt Count MPV Absolute Neuts (auto) Neutrophils % Neutrophils % (Manual) Band Neutrophils % Lymphocytes % Lymphocytes % (Manual) Monocytes % Monocytes % (Manual) Eosinophils % Eosinophils % (Manual) Basophils % Basophils % (Manual) Myelocytes % (Man) Promyelocytes % (Man) Blast Cells % (Manual) Nucleated RBC % Metamyelocytes Hypochromia Platelet Estimate Polychromasia Poikilocytosis Anisocytosis Microcytosis Macrocytosis Anticoagulation Therapy No Result Required. Puncture Site Left radial Patient Temperature No Result Required. ABG pH 7.388 ABG pCO2 39.90 ABG pO2 97.2 ABG HCO3 23.5 ABG O2 Sat (Measured) 97.3 ABG O2 Content No Result Required. ABG Base Excess -1.4 Sai Test Positive Patient On Oxygen Yes O2 Delivery Device Vent Oxygen Flow Rate 50% Vent Mode A/c Vent Rate 14 Mechanical Rate Yes PEEP 5.0 Pressure Support Vent 450 Sodium 136 Potassium 3.7 Chloride 97 L Carbon Dioxide 26 Anion Gap 13 BUN 64.9 H Creatinine 2.5 H Est GFR (CKD-EPI)AfAm 20.93 Est GFR (CKD-EPI)NonAf 18.06 POC Glucometer 286 Random Glucose 340 H Calcium 8.1 L Phosphorus 3.7 Magnesium 2.0 Total Bilirubin 0.3 AST 14 L ALT 14 Alkaline Phosphatase 468 H Total Protein 5.4 L Albumin 1.5 L 02/27/20 12:33 WBC RBC Hgb Hct MCV MCH MCHC RDW Plt Count MPV Absolute Neuts (auto) Neutrophils % Neutrophils % (Manual) Band Neutrophils % Lymphocytes % Lymphocytes % (Manual) Monocytes % Monocytes % (Manual) Eosinophils % Eosinophils % (Manual) Basophils % Basophils % (Manual) Myelocytes % (Man) Promyelocytes % (Man) Blast Cells % (Manual) Nucleated RBC % Metamyelocytes Hypochromia Platelet Estimate Polychromasia Poikilocytosis Anisocytosis Microcytosis Macrocytosis Anticoagulation Therapy Puncture Site Patient Temperature ABG pH ABG pCO2 ABG pO2 ABG HCO3 ABG O2 Sat (Measured) ABG O2 Content ABG Base Excess Sai Test Patient On Oxygen O2 Delivery Device Oxygen Flow Rate Vent Mode Vent Rate Mechanical Rate PEEP Pressure Support Vent Sodium Potassium Chloride Carbon Dioxide Anion Gap BUN Creatinine Est GFR (CKD-EPI)AfAm Est GFR (CKD-EPI)NonAf POC Glucometer 239 Random Glucose Calcium Phosphorus Magnesium Total Bilirubin AST ALT Alkaline Phosphatase Total Protein Albumin Active Medications Generic Name Dose Route Start Last Admin Trade Name Freq PRN Reason Stop Dose Admin Acetaminophen 650 mg 02/19/20 20:56 02/20/20 21:06 Tylenol Oral Solution - GT 650 mg Q6H PRN Administration PAIN LEVEL 4 - 6 Banana Based Medical Food 1 packet 02/25/20 14:00 02/27/20 15:05 Banatrol Plus Powder Packet PO 1 packet TID JOSE Administration Collagenase 1 applic 02/09/20 10:00 02/27/20 09:49 Santyl - TP 1 applic DAILY JOSE Administration Protocol Guaifenesin 10 ml 02/19/20 20:56 02/21/20 20:49 Robitussin - GT 10 ml Q4H PRN Administration COUGH Norepinephrine Bitartrate 8,000 mcg in 500 mls @ 18.75 mls/hr 02/20/20 15:15 02/26/20 16:45 Levophed Bag IVPB 5 mcg/min TITR JOSE 18.75 mls/hr Administration Protocol 5 MCG/MIN Fentanyl 500 mcg in 100 mls @ 9.435 mls/hr 02/20/20 21:00 02/26/20 21:15 Sublimaze Ivpb IVPB Not Given TITR JOSE 1 MCG/KG/HR Piperacillin Sod/Tazobactam 50 mls @ 100 mls/hr 02/23/20 18:00 02/27/20 09:49 Sod 2.25 gm/ Dextrose IVPB 100 mls/hr Q8H-IV JOSE Administration Protocol Sodium Chloride 250 mls @ 3,000 mls/hr 02/26/20 10:08 Normal Saline - IV 02/27/20 10:09 PRN PRN Hypotension during Dialysis Insulin Aspart 1 vial 02/25/20 08:32 02/27/20 12:48 Novolog Vial Sliding Scale - SQ 4 units Q6HPO JOSE Administration Protocol Methylprednisolone Sodium Succinate 40 mg 02/28/20 10:00 Solu-Medrol - IVPUSH DAILY JOSE Pantoprazole Sodium 40 mg 02/21/20 10:00 02/27/20 09:49 Protonix Iv IVPUSH 40 mg DAILY JOSE Administration ASSESSMENT/PLAN: 74 year old female w/ PMH of CVA, ESRD on HD, HTN, HLD, DM, sacral ulcer admitted to ICU for acute hypoxic respiratory failure. Neuro - CVA - d/c fentanyl - off sedation Pulm - intubated TV 400 RR 15 FIO2 50 PEEP 5 - medrol 40 q6H - duoenbs - aspiration precautions - Consent done for trach and bronchoscopy for tomorrow Cardio - Levo stopped - maintain MAP > 65 - hold antihypertensives Renal - ESRD on HD HD yesterday - monitor electrolytes - monitor i's and o's - avoid nephrotoxic agents - renal following (Dr. Hong) ENDO - DM - BGMS ISS ACHS GI - 40 IV protonix daily ID - ID on board (Dr. Ulloa) - cultures pending - zosyn: day 8 FEN - NS 250 cc/hr - monitor electrolytes - enteral feeds Lines - L IJ placed 02/20 - peripheral line placed 02/21 dvt ppx: - scds in light of previous bleed code status: full code Dispo: If stable, transfer to facility with vent & trach Visit type - Emergency Visit Emergency Visit: Yes ED Registration Date: 01/15/20 Care time: The patient presented to the Emergency Department on the above date and was hospitalized for further evaluation of their emergent condition. - New Patient This patient is new to me today: No - Critical Care Critical Care patient: Yes Total Critical Care Time (in minutes): 35 Critical Care Statement: The care of this patient involved high complexity decision making to prevent further life threatening deterioration of the patient's condition and/or to evaluate & treat vital organ system(s) failure or risk of failure. - Discharge Referral Referred to [facility] No - Medication Review Med list reviewed for High Risk Meds patients 65 and older: Yes ATTENDING PHYSICIAN STATEMENT I saw and evaluated the patient. I reviewed the resident's note and discussed the case with the resident. I agree with the resident's findings and plan as documented. SUBJECTIVE: OBJECTIVE: ASSESSMENT AND PLAN:
--- NOTE | 2020-02-27 17:19 | PN ---
Progress Note (short form) - Note Progress Note: RENAL remains intubated comatose occasionally opens eyes Last Vital Signs Temp Pulse Resp BP Pulse Ox 97.6 F 83 14 111/60 100 02/27/20 10:00 02/27/20 14:00 02/27/20 14:00 02/27/20 14:00 02/27/20 14:[address] lungs bilat breath sounds cvs s1s2 rr +DAVE abd soft ext upper ext edema neuro occasionally opens eyes, otherwise no response CBC, BMP 02/27/20 05:00 02/27/20 05:00 Current Medications Generic Name Dose Route Start Last Admin Trade Name Freq PRN Reason Stop Dose Admin Acetaminophen 650 mg 02/19/20 20:56 02/20/20 21:06 Tylenol Oral Solution - GT 650 mg Q6H PRN Administration PAIN LEVEL 4 - 6 Banana Based Medical Food 1 packet 02/25/20 14:00 02/27/20 15:05 Banatrol Plus Powder Packet PO 1 packet TID JOSE Administration Collagenase 1 applic 02/09/20 10:00 02/27/20 09:49 Santyl - TP 1 applic DAILY JOSE Administration Protocol Guaifenesin 10 ml 02/19/20 20:56 02/21/20 20:49 Robitussin - GT 10 ml Q4H PRN Administration COUGH Norepinephrine Bitartrate 8,000 mcg in 500 mls @ 18.75 mls/hr 02/20/20 15:15 02/26/20 16:45 Levophed Bag IVPB 5 mcg/min TITR JOSE 18.75 mls/hr Administration Protocol 5 MCG/MIN Piperacillin Sod/Tazobactam 50 mls @ 100 mls/hr 02/23/20 18:00 02/27/20 09:49 Sod 2.25 gm/ Dextrose IVPB 100 mls/hr Q8H-IV JOSE Administration Protocol Sodium Chloride 250 mls @ 3,000 mls/hr 02/26/20 10:08 Normal Saline - IV 02/27/20 10:09 PRN PRN Hypotension during Dialysis Insulin Aspart 1 vial 02/25/20 08:32 02/27/20 12:48 Novolog Vial Sliding Scale - SQ 4 units Q6HPO JOSE Administration Protocol Methylprednisolone Sodium Succinate 40 mg 02/28/20 10:00 Solu-Medrol - IVPUSH DAILY JOSE Pantoprazole Sodium 40 mg 02/21/20 10:00 02/27/20 09:49 Protonix Iv IVPUSH 40 mg DAILY JOSE Administration IMPRESSION esrd htn s/p cva x 2- hypokalemia covid 19 neg hypernatremia resolved leukocytosis proteus bacetermia remains comatose PLAN monitor trach HD BIW unless indicated earlier MV
[2020-02-28] MEDS: INSULIN SLIDING SCALE (NOVOLOG) 1 VIAL SQ SCH ×4 (00:10→17:16)
[2020-02-28] MEDS ORDERED: PIPERACILLIN/TAZOBACTAM 2.25 GM VIAL IVPB ONE ×2 (01:34→08:57)
[2020-02-28] MEDS ORDERED: DEXTROSE 5%-WATER - 50 ML IVPB ONE ×2 (01:34→08:57)
[2020-02-28] MEDS: PIPERACILLIN/TAZOB 2.25 GM 2.25 GM in DEXTROSE 5%-WATER - 50 ML IVPB SCH ×2 (01:40→09:29)
--- NOTE | 2020-02-28 02:07 | PN ---
Progress Note, Physician Chief Complaint: Pt unresponsive; intubated.Off pressors. History of Present Illness: Ms. Galeas is a 74 year old black female with a significant past medical history of ESRD, hypertension, DMII, GERD, HTN, and HL, who presents to the ED, BIBA, and unresponsive x2 days. ESRD (on HD), hypertension, DMII, GERD, HTN, HL, aphasia and stroke [address] showed (01/13) right parietal, occipital and temporal lobe suggestive of acute CVA; no acute intracranial bleed ; Prolonged ICU course complicated by Acute worsening of chronic anemia, likely from stomal bleed. Elevated TNIs most likely anemia- induced ischemia. - Current Medication List Current Medications: Active Medications Acetaminophen (Tylenol Oral Solution -) 650 mg GT Q6H PRN PRN Reason: PAIN LEVEL 4 - 6 Last Admin: 02/20/20 21:06 Dose: 650 mg Documented by: Banana Based Medical Food (Banatrol Plus Powder Packet) 1 packet PO TID JOSE Last Admin: 02/27/20 21:40 Dose: 1 packet Documented by: Collagenase (Santyl -) 1 applic TP DAILY JOSE; Protocol Last Admin: 02/27/20 09:49 Dose: 1 applic Documented by: Guaifenesin (Robitussin -) 10 ml GT Q4H PRN PRN Reason: COUGH Last Admin: 02/21/20 20:49 Dose: 10 ml Documented by: Norepinephrine Bitartrate (Levophed Bag) 8,000 mcg in 500 mls @ 18.75 mls/hr IVPB TITR JOSE; Protocol Last Admin: 02/26/20 16:45 Dose: 5 mcg/min, 18.75 mls/hr Documented by: Piperacillin Sod/Tazobactam (Sod 2.25 gm/ Dextrose) 50 mls @ 100 mls/hr IVPB Q8H-IV JOSE; Protocol Last Admin: 02/28/20 01:40 Dose: 100 mls/hr Documented by: Sodium Chloride (Normal Saline -) 250 mls @ 3,000 mls/hr IV PRN PRN PRN Reason: Hypotension during Dialysis Stop: 02/27/20 10:09 Insulin Aspart (Novolog Vial Sliding Scale -) 1 vial SQ Q6HPO JOSE; Protocol Last Admin: 02/28/20 00:10 Dose: 2 units Documented by: Methylprednisolone Sodium Succinate (Solu-Medrol -) 40 mg IVPUSH DAILY [facility] Pantoprazole Sodium (Protonix Iv) 40 mg IVPUSH DAILY [facility] Last Admin: 02/27/20 09:49 Dose: 40 mg Documented by: - Objective Vital Signs: Vital Signs Temperature 98.4 F 02/28/20 02:00 Pulse Rate 89 02/28/20 02:00 Respiratory Rate 17 02/28/20 02:00 Blood Pressure 107/64 02/28/20 02:00 O2 Sat by Pulse Oximetry (%) 98 02/28/20 02:00 Constitutional: Yes: Cachectic Eyes: Yes: Other HENT: Yes: WNL Neck: Yes: Decreased ROM Cardiovascular: Yes: S1, S2 (split) Respiratory: Yes: Diminished (left base), Mechanically Ventilated Gastrointestinal: Yes: Soft Genitourinary: Yes: Vasquez Present. No: Anuria Musculoskeletal: Yes: Muscle Weakness Extremities: Yes: Cool Edema: No Peripheral Pulses WNL: Yes Integumentary: Yes: WNL Neurological: Yes: Unresponsive Psychiatric: Yes: Other Labs: CBC, BMP 02/27/20 05:00 02/27/20 05:00 INR, PTT INR 1.56 (0.83-1.09) H 02/02/20 20:30 Fibrinogen 448.0 mg/dL (238-498) 02/05/20 06:00 Abnormal Lab Results 02/27/20 02/27/20 05:00 05:00 WBC 33.8 H* RBC 2.65 L Hgb 7.9 L Hct 25.2 L MCHC 31.2 L RDW 18.4 H Plt Count 508 H D Absolute Neuts (auto) 32.2 H Neutrophils % 95.5 H Neutrophils % (Manual) 93.3 H Lymphocytes % 1.6 L D Lymphocytes % (Manual) 4.8 L D Monocytes % 2.7 L D Monocytes % (Manual) 1 L Chloride 97 L BUN 64.9 H Creatinine 2.5 H Random Glucose 340 H Calcium 8.1 L AST 14 L Alkaline Phosphatase 468 H Total Protein 5.4 L Albumin 1.5 L - ....Imaging Chest X-ray: Image Reviewed EKG: Image Reviewed Assessment/Plan Hypoxemia-->transfer to ICU; Intubated/ mechanically ventilated leukocytosis Acute right temporoparietal infarct -- Large MCA aspiration pneumonia; COVID negative ESRD -HD Respiratory failure severe Anemia elevated TNIs - most likely due to demand ischemia due to severe anemia. New LBBB 7-25-20 s/p PEG Nl EF Moderate MR moderate PHT off vasopressors Plan: Remains intubated; planned for tracheostomy. EKG: NSR; LBBB TNI decreased to 0.41 on 02/21/20 Hb 25.2 lipid profile: LDL 252 in 2010; now 65 mg/dL (on no lipid-lowering agents) Poor prognosis CC time spent: 35 minutes
[2020-02-28] MEDS: BANATROL PLUS POWDER PACKET PO SCH ×3 (06:11→22:52)
[2020-02-28 07:18] LABS: HEMATOCRIT 28.2 % (32.4-45.2); MCH 30.1 pg (25.7-33.7); MCHC 31.8 g/dl (32.0-36.0); MEAN CELL VOLUME 94.7 fl (80-96); MEAN PLT VOLUME 9.9 fl (7.5-11.1); PLATELET COUNT 527 K/MM3 (134-434); RBC 2.98 M/mm3 (3.60-5.2); RDW 18.2 % (11.6-15.6)
[2020-02-28 07:30] LABS: BLOOD UREA NITROGEN 86.8 mg/dL (7-18); CALCIUM 8.2 mg/dL (8.5-10.1); CREATININE 2.9 mg/dL (0.55-1.3); POTASSIUM 3.7 mmol/L (3.5-5.1)
[2020-02-28 07:31] LABS: WHITE BLOOD COUNT 33.6 K/mm3 (4.0-10.0)
[2020-02-28] MEDS: PANTOPRAZOLE SODIUM 40 MG VIAL IVPUSH SCH (09:30)
[2020-02-28] MEDS: methylPREDNISolone NA SUCC 40 MG/1 ML VIAL IVPUSH SCH (09:30)
[2020-02-28] MEDS: COLLAGENASE CLOSTRIDIUM HIST. 30 GRAMS TUBE TP SCH (09:35)
[2020-02-28] MEDS ORDERED: MIDAZOLAM HCL 5 MG/1 ML Single Dose Vial IVPUSH ONE (10:23)
[2020-02-28] MEDS ORDERED: PROPOFOL 1,000,000 MCG/100 ML VIAL ONE (10:23)
[2020-02-28] MEDS ORDERED: VECURONIUM BROMIDE 10 MG/10 ML VIAL IVPUSH ONE (10:24)
[2020-02-28] MEDS ORDERED: VECURONIUM BROMIDE 10 MG/10 ML VIAL ONE (10:24)
[2020-02-28] MEDS ORDERED: MIDAZOLAM HCL 5 MG/1 ML Single Dose Vial ONE (10:25)
--- NOTE | 2020-02-28 10:32 | PN ---
Progress Note, Physician History of Present Illness: 74 year old female with medical history of ESRD (on HD), hypertension, DMII, GERD, HTN, HL, aphasia and stroke 3 months ago, admitted to ICU fro ED for progressive weakness and reported unresponsiveness. Head CT showed (01/13) right pareital, occipital and temporal lobe suggestive of acute CVA no acute intracranial bleed ; Prolonged ICU course complicated by Acxute worsening of chronic anemia, likely from stomal bleed. Elevated TNIs most likely anemia induced ischemia. - Current Medication List Current Medications: Active Medications Acetaminophen (Tylenol Oral Solution -) 650 mg GT Q6H PRN PRN Reason: PAIN LEVEL 4 - 6 Last Admin: 02/20/20 21:06 Dose: 650 mg Documented by: Banana Based Medical Food (Banatrol Plus Powder Packet) 1 packet PO TID JOSE Last Admin: 02/28/20 06:11 Dose: Not Given Documented by: Collagenase (Santyl -) 1 applic TP DAILY JOSE; Protocol Last Admin: 02/28/20 09:35 Dose: 1 applic Documented by: Guaifenesin (Robitussin -) 10 ml GT Q4H PRN PRN Reason: COUGH Last Admin: 02/21/20 20:49 Dose: 10 ml Documented by: Norepinephrine Bitartrate (Levophed Bag) 8,000 mcg in 500 mls @ 18.75 mls/hr IVPB TITR JOSE; Protocol Last Admin: 02/26/20 16:45 Dose: 5 mcg/min, 18.75 mls/hr Documented by: Piperacillin Sod/Tazobactam (Sod 2.25 gm/ Dextrose) 50 mls @ 100 mls/hr IVPB Q8H-IV JOSE; Protocol Last Admin: 02/28/20 09:29 Dose: 100 mls/hr Documented by: Sodium Chloride (Normal Saline -) 250 mls @ 3,000 mls/hr IV PRN PRN PRN Reason: Hypotension during Dialysis Stop: 02/27/20 10:09 Insulin Aspart (Novolog Vial Sliding Scale -) 1 vial SQ Q6HPO JOSE; Protocol Last Admin: 02/28/20 06:20 Dose: Not Given Documented by: Methylprednisolone Sodium Succinate (Solu-Medrol -) 40 mg IVPUSH DAILY JOSE Last Admin: 02/28/20 09:30 Dose: 40 mg Documented by: Pantoprazole Sodium (Protonix Iv) 40 mg IVPUSH DAILY JOSE Last Admin: 02/28/20 09:30 Dose: 40 mg Documented by: - Objective Vital Signs: Vital Signs Temperature 97.6 F 02/28/20 06:00 Pulse Rate 90 02/28/20 08:00 Respiratory Rate 17 02/28/20 08:15 Blood Pressure 99/66 02/28/20 08:00 O2 Sat by Pulse Oximetry (%) 100 02/28/20 08:15 Eyes: Yes: WNL, Conjunctiva Clear, EOM Intact HENT: Yes: WNL, Atraumatic, Normocephalic Neck: Yes: WNL, Supple, Trachea Midline Cardiovascular: Yes: WNL, Regular Rate and Rhythm Respiratory: Yes: Diminished, Intubated, Mechanically Ventilated Gastrointestinal: Yes: WNL, Normal Bowel Sounds Genitourinary: Yes: WNL Musculoskeletal: Yes: WNL Extremities: Yes: WNL Edema: No Integumentary: Yes: WNL Neurological: Yes: WNL, Alert, Oriented ...Motor Strength: WNL Psychiatric: Yes: WNL Labs: CBC, BMP 02/28/20 05:25 02/28/20 05:25 INR, PTT INR 1.56 (0.83-1.09) H 02/02/20 20:30 Fibrinogen 448.0 mg/dL (238-498) 02/05/20 06:00 Problem List - Problems (1) Altered mental status Code(s): R41.82 - ALTERED MENTAL STATUS, UNSPECIFIED (2) Anemia Code(s): D64.9 - ANEMIA, UNSPECIFIED (3) Lactic acidosis Code(s): E87.2 - ACIDOSIS (4) Pneumonia, aspiration Code(s): J69.0 - PNEUMONITIS DUE TO INHALATION OF FOOD AND VOMIT (5) Stroke Code(s): I63.9 - CEREBRAL INFARCTION, UNSPECIFIED (6) Clotted dialysis access Code(s): T82.49XA - OTH COMPLICATION OF VASCULAR DIALYSIS CATHETER, INIT ENCNTR (7) Diabetes Code(s): E11.9 - TYPE 2 DIABETES MELLITUS WITHOUT COMPLICATIONS (8) ESRD on dialysis Code(s): N18.6 - END STAGE RENAL DISEASE; Z99.2 - DEPENDENCE ON RENAL DIALYSIS (9) Hypertension Code(s): I10 - ESSENTIAL (PRIMARY) HYPERTENSION (10) SOB (shortness of breath) Code(s): R06.02 - SHORTNESS OF BREATH Assessment/Plan Hypoxemia-->transfer to ICU; Intubated/ mechanically ventilated leukocytosis Acute right temporoparietal infarct -- Large MCA aspiration pneumonia; COVID negative ESRD -HD Respiratory failure severe Anemia elevated TNIs - most likely due to demand ischemia due to severe anemia. New LBBB 7-25-20 s/p PEG Nl EF Moderate MR moderate PHT off vasopressors Plan: Remains intubated; planned for tracheostomy. EKG: NSR; LBBB TNI decreased to 0.41 on 02/21/20 Hb 25.2 lipid profile: LDL 252 in 2010; now 65 mg/dL (on no lipid-lowering agents) Poor prognosis CC time spent: 35 minutes
--- NOTE | 2020-02-28 10:42 | PN ---
Progress Note, Physician Chief Complaint: INTUBATED IN ICU BREATHING NON-LABORED BC PROTEUS SP. OFF PRESSORS FOR TRACH TODAY - Current Medication List Current Medications: Active Medications Acetaminophen (Tylenol Oral Solution -) 650 mg GT Q6H PRN PRN Reason: PAIN LEVEL 4 - 6 Last Admin: 02/20/20 21:06 Dose: 650 mg Documented by: Banana Based Medical Food (Banatrol Plus Powder Packet) 1 packet PO TID JOSE Last Admin: 02/28/20 06:11 Dose: Not Given Documented by: Collagenase (Santyl -) 1 applic TP DAILY JOSE; Protocol Last Admin: 02/28/20 09:35 Dose: 1 applic Documented by: Guaifenesin (Robitussin -) 10 ml GT Q4H PRN PRN Reason: COUGH Last Admin: 02/21/20 20:49 Dose: 10 ml Documented by: Norepinephrine Bitartrate (Levophed Bag) 8,000 mcg in 500 mls @ 18.75 mls/hr IVPB TITR JOSE; Protocol Last Admin: 02/26/20 16:45 Dose: 5 mcg/min, 18.75 mls/hr Documented by: Piperacillin Sod/Tazobactam (Sod 2.25 gm/ Dextrose) 50 mls @ 100 mls/hr IVPB Q8H-IV JOSE; Protocol Last Admin: 02/28/20 09:29 Dose: 100 mls/hr Documented by: Sodium Chloride (Normal Saline -) 250 mls @ 3,000 mls/hr IV PRN PRN PRN Reason: Hypotension during Dialysis Stop: 02/27/20 10:09 Insulin Aspart (Novolog Vial Sliding Scale -) 1 vial SQ Q6HPO JOSE; Protocol Last Admin: 02/28/20 06:20 Dose: Not Given Documented by: Methylprednisolone Sodium Succinate (Solu-Medrol -) 40 mg IVPUSH DAILY [facility] Last Admin: 02/28/20 09:30 Dose: 40 mg Documented by: Pantoprazole Sodium (Protonix Iv) 40 mg IVPUSH DAILY [facility] Last Admin: 02/28/20 09:30 Dose: 40 mg Documented by: - Objective Vital Signs: Vital Signs Temperature 97.6 F 02/28/20 06:00 Pulse Rate 90 02/28/20 08:00 Respiratory Rate 17 02/28/20 08:15 Blood Pressure 99/66 02/28/20 08:00 O2 Sat by Pulse Oximetry (%) 100 02/28/20 08:15 Constitutional: Yes: No Distress Cardiovascular: Yes: Regular Rate and Rhythm, S1, S2 Respiratory: Yes: Diminished Gastrointestinal: Yes: Normal Bowel Sounds, Soft. No: Tenderness Labs: CBC, BMP 02/28/20 05:25 02/28/20 05:25 INR, PTT INR 1.56 (0.83-1.09) H 02/02/20 20:30 Fibrinogen 448.0 mg/dL (238-498) 02/05/20 06:00 Assessment/Plan ACUTE RESP FAILURE R/O HCAP GRAM NEGATIVE BACTEREMIA S/P ACUTE CVA S/P RLL PNEUMONIA ESRD LEUKOCYTOSIS OBS D/C ZOSYN OBSERVE OFF AMTIBIOTICS VENTILATORY SUPPORT PROGNOSIS POOR
--- NOTE | 2020-02-28 11:09 | OPR ---
percutaneous tracheostomy performed and size 7 portex tracheostomy tube placed under bronchoscopic guidance. Stable throughout.
[2020-02-28] MEDS ORDERED: DEXTROSE 50%-WATER - 25 GM/50 ML VIAL IVPUSH ONE (11:18)
[2020-02-28] MEDS ORDERED: DEXTROSE 50%-WATER 25 GM/50 ML DISP.SYRIN ONE (11:18)
--- NOTE | 2020-02-28 12:03 | PN ---
Progress Note (short form) - Note Progress Note: pt is in ICU trach placed today no distress Vital Signs - 24 hr 02/27/20 02/27/20 02/27/20 12:15 14:00 16:15 Temperature Pulse Rate 83 Respiratory 14 14 17 Rate Blood Pressure 111/60 O2 Sat by Pulse 99 100 99 Oximetry (%) 02/27/20 02/27/20 02/27/20 18:00 20:00 20:25 Temperature 98.1 F Pulse Rate 92 H 97 H 93 H Respiratory 14 21 H 19 Rate Blood Pressure 122/67 113/64 O2 Sat by Pulse 100 97 100 Oximetry (%) 02/27/20 02/27/20 02/28/20 20:59 22:00 00:00 Temperature 98.3 F Pulse Rate 97 H 91 H Respiratory 21 H 15 17 Rate Blood Pressure 95/58 L 109/68 O2 Sat by Pulse 97 97 100 Oximetry (%) 02/28/20 02/28/20 02/28/20 00:16 02:00 04:00 Temperature 98.4 F Pulse Rate 89 93 H Respiratory 18 17 17 Rate Blood Pressure 107/64 95/55 L O2 Sat by Pulse 100 98 100 Oximetry (%) 02/28/20 02/28/20 02/28/20 04:22 04:23 06:00 Temperature 97.6 F Pulse Rate 96 H 96 H Respiratory 17 17 15 Rate Blood Pressure 101/65 O2 Sat by Pulse 100 98 97 Oximetry (%) 02/28/20 02/28/20 02/28/20 08:00 08:15 09:00 Temperature Pulse Rate 90 Respiratory 16 17 Rate Blood Pressure 99/66 O2 Sat by Pulse 98 100 100 Oximetry (%) 02/28/20 10:00 Temperature 97.5 F L Pulse Rate 98 H Respiratory 18 Rate Blood Pressure 127/87 O2 Sat by Pulse 98 Oximetry (%) Current Medications Generic Name Dose Route Start Last Admin Trade Name Freq PRN Reason Stop Dose Admin Acetaminophen 650 mg 02/19/20 20:56 02/20/20 21:06 Tylenol Oral Solution - GT 650 mg Q6H PRN Administration PAIN LEVEL 4 - 6 Banana Based Medical Food 1 packet 02/25/20 14:00 02/28/20 06:11 Banatrol Plus Powder Packet PO Not Given TID JOSE Collagenase 1 applic 02/09/20 10:00 02/28/20 09:35 Santyl - TP 1 applic DAILY JOSE Administration Protocol Guaifenesin 10 ml 02/19/20 20:56 02/21/20 20:49 Robitussin - GT 10 ml Q4H PRN Administration COUGH Norepinephrine Bitartrate 8,000 mcg in 500 mls @ 18.75 mls/hr 02/20/20 15:15 02/26/20 16:45 Levophed Bag IVPB 5 mcg/min TITR JOSE 18.75 mls/hr Administration Protocol 5 MCG/MIN Sodium Chloride 250 mls @ 3,000 mls/hr 02/26/20 10:08 Normal Saline - IV 02/27/20 10:09 PRN PRN Hypotension during Dialysis Insulin Aspart 1 vial 02/25/20 08:32 02/28/20 11:28 Novolog Vial Sliding Scale - SQ Not Given Q6HPO JOSE Protocol Methylprednisolone Sodium Succinate 40 mg 02/28/20 10:00 02/28/20 09:30 Solu-Medrol - IVPUSH 40 mg DAILY JOSE Administration Pantoprazole Sodium 40 mg 02/21/20 10:00 02/28/20 09:30 Protonix Iv IVPUSH 40 mg DAILY JOSE Administration Laboratory Results - last 24 hr 02/26/20 02/27/20 02/27/20 17:30 12:33 17:22 WBC RBC Hgb Hct MCV MCH MCHC RDW Plt Count MPV Sodium Potassium Chloride Carbon Dioxide Anion Gap BUN Creatinine Est GFR (CKD-EPI)AfAm Est GFR (CKD-EPI)NonAf POC Glucometer 239 286 Random Glucose Calcium Phosphorus Magnesium Hep Bs Antigen Negative Hep C Ab Diagnostic <0.1 02/28/20 02/28/20 02/28/20 00:02 05:25 05:25 WBC 33.6 H* RBC 2.98 L Hgb 9.0 L Hct 28.2 L MCV 94.7 MCH 30.1 MCHC 31.8 L RDW 18.2 H Plt Count 527 H MPV 9.9 Sodium 133 L Potassium 3.7 Chloride 94 L Carbon Dioxide 23 Anion Gap 16 BUN 86.8 H Creatinine 2.9 H Est GFR (CKD-EPI)AfAm 17.49 Est GFR (CKD-EPI)NonAf 15.09 POC Glucometer 161 Random Glucose 242 H Calcium 8.2 L Phosphorus 4.0 Magnesium 2.0 Hep Bs Antigen Hep C Ab Diagnostic 02/28/20 02/28/20 05:43 11:16 WBC RBC Hgb Hct MCV MCH MCHC RDW Plt Count MPV Sodium Potassium Chloride Carbon Dioxide Anion Gap BUN Creatinine Est GFR (CKD-EPI)AfAm Est GFR (CKD-EPI)NonAf POC Glucometer 153 55 Random Glucose Calcium Phosphorus Magnesium Hep Bs Antigen Hep C Ab Diagnostic S1 S2 RRR left side edematous Lungs decreased Abd- soft, NT, GT+ No edema s/p trach ct head showed large right mca cerebral edema with minimal hemorrhagic transformation repeat ct head done on january 28 A/P acute respiratory failure fever 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 ESRD on HD aspiration pneumonia acute respiratory failure -proteus in blood sepsis -- iv antibiotics per ID -- pt is FULL CODE -- continue with current care -- s/p trach placement -- poor prognosis -- vent management per ICU -- off pressors -- family wishes to continue current management including dialysis -- dc planning to [place] Problem List - Problems (1) Altered mental status Code(s): R41.82 - ALTERED MENTAL STATUS, UNSPECIFIED (2) Lactic acidosis Code(s): E87.2 - ACIDOSIS (3) Pneumonia, aspiration Code(s): J69.0 - PNEUMONITIS DUE TO INHALATION OF FOOD AND VOMIT (4) Stroke Code(s): I63.9 - CEREBRAL INFARCTION, UNSPECIFIED (5) ESRD on dialysis Code(s): N18.6 - END STAGE RENAL DISEASE; Z99.2 - DEPENDENCE ON RENAL DIALYSIS (6) Hypertension Code(s): I10 - ESSENTIAL (PRIMARY) HYPERTENSION
--- NOTE | 2020-02-28 13:19 | PROC ---
Procedure Note Procedure: BRONCHOSCOPY NOTE Informed consent in chart. Storz video bronchoscope was passed via the ETT and the airways were examined down to the subsegmental level. The kyle was sharp. There were mucous plugs in the LLL which were easily lavaged away. Trachea was visualized as the surgeon placed a size 7 percutaneous tracheostomy. No immediate complications. Vitals stable throughout. Bronchoscope was then withdrawn and procedure terminated. Korey Ayala MD
--- NOTE | 2020-02-28 13:21 | PN ---
Teaching Attending Note Name of Resident: Rupinder Choi ATTENDING PHYSICIAN STATEMENT I saw and evaluated the patient. I reviewed the resident's note and discussed the case with the resident. I agree with the resident's findings and plan as documented. SUBJECTIVE: Pt seen and examined in the ICU. s/p tracheostomy this AM. No fevers recorded. OBJECTIVE: Vital Signs Period Temp Pulse Resp BP Sys/Ramirez Pulse Ox Last 24 Hr 97.5 F-98.4 F 83-98 14-21 93-127/55-87 97-100 Intake & Output 02/25/20 02/26/20 02/27/20 02/28/20 23:59 23:59 23:59 23:59 Intake Total 1615 1337 581 98 Output Total 5573 800 200 Balance 1615 -4236 -219 -102 Weight 46.266 kg 46.266 kg 46.13 kg Gen: vented, sedated Heart: RRR Lung: scattered rhonchi Abd: soft, nontender Ext: no edema CBC, BMP 02/28/20 05:25 02/28/20 05:25 Active Medications Acetaminophen (Tylenol Oral Solution -) 650 mg GT Q6H PRN PRN Reason: PAIN LEVEL 4 - 6 Last Admin: 02/20/20 21:06 Dose: 650 mg Documented by: Banana Based Medical Food (Banatrol Plus Powder Packet) 1 packet PO TID JOSE Last Admin: 02/28/20 06:11 Dose: Not Given Documented by: Collagenase (Santyl -) 1 applic TP DAILY JOSE; Protocol Last Admin: 02/28/20 09:35 Dose: 1 applic Documented by: Guaifenesin (Robitussin -) 10 ml GT Q4H PRN PRN Reason: COUGH Last Admin: 02/21/20 20:49 Dose: 10 ml Documented by: Norepinephrine Bitartrate (Levophed Bag) 8,000 mcg in 500 mls @ 18.75 mls/hr IVPB TITR JOSE; Protocol Last Admin: 02/26/20 16:45 Dose: 5 mcg/min, 18.75 mls/hr Documented by: Sodium Chloride (Normal Saline -) 250 mls @ 3,000 mls/hr IV PRN PRN PRN Reason: Hypotension during Dialysis Stop: 02/27/20 10:09 Insulin Aspart (Novolog Vial Sliding Scale -) 1 vial SQ Q6HPO JOSE; Protocol Last Admin: 02/28/20 11:28 Dose: Not Given Documented by: Methylprednisolone Sodium Succinate (Solu-Medrol -) 40 mg IVPUSH DAILY [facility] Last Admin: 02/28/20 09:30 Dose: 40 mg Documented by: Pantoprazole Sodium (Protonix Iv) 40 mg IVPUSH DAILY [facility] Last Admin: 02/28/20 09:30 Dose: 40 mg Documented by: ASSESSMENT AND PLAN: Acute Hypoxic Respiratory Failure Acute CVA Pneumonia likely Aspiration Proteus Bacteremia ESRD on HD HTN DM Hyperlipidemia h/o CVA - completed antibiotics - off pressors, maintain MAP >65 - HD per renal - taper off medrol - inhaled bronchodilators - titrate FiO2, PEEP to keep SpO2 >90% - enteral feeds - DVT/GI prophylaxis - can monitor on vent floor - d/c planning
--- NOTE | 2020-02-28 13:51 | PN ---
Progress Note (short form) - Note Progress Note: RENAL remains intubated comatose occasionally opens eyes trach Last Vital Signs Temp Pulse Resp BP Pulse Ox 97.5 F L 93 H 14 93/58 L 100 02/28/20 10:00 02/28/20 12:00 02/28/20 12:43 02/28/20 12:00 02/28/20 12:43 trach lungs bilat breath sounds cvs s1s2 rr +DAVE abd soft ext upper ext edema neuro occasionally opens eyes, otherwise no response CBC, BMP 02/28/20 05:25 02/28/20 05:25 Current Medications Generic Name Dose Route Start Last Admin Trade Name Freq PRN Reason Stop Dose Admin Acetaminophen 650 mg 02/19/20 20:56 02/20/20 21:06 Tylenol Oral Solution - GT 650 mg Q6H PRN Administration PAIN LEVEL 4 - 6 Banana Based Medical Food 1 packet 02/25/20 14:00 02/28/20 06:11 Banatrol Plus Powder Packet PO Not Given TID JOSE Collagenase 1 applic 02/09/20 10:00 02/28/20 09:35 Santyl - TP 1 applic DAILY JOSE Administration Protocol Guaifenesin 10 ml 02/19/20 20:56 02/21/20 20:49 Robitussin - GT 10 ml Q4H PRN Administration COUGH Norepinephrine Bitartrate 8,000 mcg in 500 mls @ 18.75 mls/hr 02/20/20 15:15 02/26/20 16:45 Levophed Bag IVPB 5 mcg/min TITR JOSE 18.75 mls/hr Administration Protocol 5 MCG/MIN Sodium Chloride 250 mls @ 3,000 mls/hr 02/26/20 10:08 Normal Saline - IV 02/27/20 10:09 PRN PRN Hypotension during Dialysis Insulin Aspart 1 vial 02/25/20 08:32 02/28/20 11:28 Novolog Vial Sliding Scale - SQ Not Given Q6HPO JOSE Protocol Methylprednisolone Sodium Succinate 40 mg 02/28/20 10:00 02/28/20 09:30 Solu-Medrol - IVPUSH 40 mg DAILY JOSE Administration Pantoprazole Sodium 40 mg 02/21/20 10:00 02/28/20 09:30 Protonix Iv IVPUSH 40 mg DAILY JOSE Administration IMPRESSION esrd htn s/p cva x 2- hypokalemia covid 19 neg hypernatremia resolved leukocytosis proteus bacetermia remains comatose PLAN will dialyze tomorrow continue current management MV
--- NOTE | 2020-02-28 13:56 | PN ---
Physical Exam: SUBJECTIVE: Patient seen and examined bedside. Ventilated, no events overnight. OBJECTIVE: Vital Signs 02/28/20 02/28/20 10:00 12:00 Temperature 97.5 F L Pulse Rate 98 H 93 H Respiratory 18 18 Rate Blood Pressure 127/87 93/58 L O2 Sat by Pulse 98 Oximetry (%) GENERAL: The patient not alert, intubated on trach, off sedation HEAD: Normal with no signs of trauma. NECK: line removed. Trach in place LUNGS: upper lungs sounds CTA BL HEART: RRR S1, S2 without ABDOMEN: Soft, nontender, nondistended EXTREMITIES: warm, well-perfused, no edema. NEUROLOGICAL: nonresponsive Intake & Output 02/25/20 02/26/20 02/27/20 02/28/20 23:59 23:59 23:59 23:59 Intake Total 1615 1337 581 98 Output Total 5573 800 200 Balance 1615 -4236 -219 -102 Weight 102 lb 102 lb 101 lb 11.2 oz Laboratory Results - last 24 hr 02/26/20 02/27/20 02/28/20 17:30 17:22 00:02 WBC RBC Hgb Hct MCV MCH MCHC RDW Plt Count MPV Sodium Potassium Chloride Carbon Dioxide Anion Gap BUN Creatinine Est GFR (CKD-EPI)AfAm Est GFR (CKD-EPI)NonAf POC Glucometer 286 161 Random Glucose Calcium Phosphorus Magnesium Hep Bs Antigen Negative Hep C Ab Diagnostic <0.1 02/28/20 02/28/20 02/28/20 05:25 05:25 05:43 WBC 33.6 H* RBC 2.98 L Hgb 9.0 L Hct 28.2 L MCV 94.7 MCH 30.1 MCHC 31.8 L RDW 18.2 H Plt Count 527 H MPV 9.9 Sodium 133 L Potassium 3.7 Chloride 94 L Carbon Dioxide 23 Anion Gap 16 BUN 86.8 H Creatinine 2.9 H Est GFR (CKD-EPI)AfAm 17.49 Est GFR (CKD-EPI)NonAf 15.09 POC Glucometer 153 Random Glucose 242 H Calcium 8.2 L Phosphorus 4.0 Magnesium 2.0 Hep Bs Antigen Hep C Ab Diagnostic 02/28/20 02/28/20 11:16 12:21 WBC RBC Hgb Hct MCV MCH MCHC RDW Plt Count MPV Sodium Potassium Chloride Carbon Dioxide Anion Gap BUN Creatinine Est GFR (CKD-EPI)AfAm Est GFR (CKD-EPI)NonAf POC Glucometer 55 83 Random Glucose Calcium Phosphorus Magnesium Hep Bs Antigen Hep C Ab Diagnostic Active Medications Generic Name Dose Route Start Last Admin Trade Name Jovanq PRN Reason Stop Dose Admin Acetaminophen 650 mg 02/19/20 20:56 02/20/20 21:06 Tylenol Oral Solution - GT 650 mg Q6H PRN Administration PAIN LEVEL 4 - 6 Banana Based Medical Food 1 packet 02/25/20 14:00 02/28/20 06:11 Banatrol Plus Powder Packet PO Not Given TID JOSE Collagenase 1 applic 02/09/20 10:00 02/28/20 09:35 Santyl - TP 1 applic DAILY JOSE Administration Protocol Guaifenesin 10 ml 02/19/20 20:56 02/21/20 20:49 Robitussin - GT 10 ml Q4H PRN Administration COUGH Norepinephrine Bitartrate 8,000 mcg in 500 mls @ 18.75 mls/hr 02/20/20 15:15 02/26/20 16:45 Levophed Bag IVPB 5 mcg/min TITR JOSE 18.75 mls/hr Administration Protocol 5 MCG/MIN Sodium Chloride 250 mls @ 3,000 mls/hr 02/26/20 10:08 Normal Saline - IV 02/27/20 10:09 PRN PRN Hypotension during Dialysis Insulin Aspart 1 vial 02/25/20 08:32 02/28/20 11:28 Novolog Vial Sliding Scale - SQ Not Given Q6HPO JOSE Protocol Methylprednisolone Sodium Succinate 40 mg 02/28/20 10:00 02/28/20 09:30 Solu-Medrol - IVPUSH 40 mg DAILY JOSE Administration Pantoprazole Sodium 40 mg 02/21/20 10:00 02/28/20 09:30 Protonix Iv IVPUSH 40 mg DAILY JOSE Administration ASSESSMENT/PLAN: 74 year old female w/ PMH of CVA, ESRD on HD, HTN, HLD, DM, sacral ulcer admitted to ICU for acute hypoxic respiratory failure. Neuro - CVA - off sedation - patient limited mental status Pulm - medrol 40 q6H - duoenbs - aspiration precautions - Trach placed & bronchoscopy done today continue ventilation settings Cardio - Levo stopped - maintain MAP > 65 - hold antihypertensives Renal - ESRD on HD HD on 02/25 - monitor electrolytes - monitor i's and o's - avoid nephrotoxic agents - renal following (Dr. Hong) will dialyze tomorrow ENDO - DM - BGMS ISS ACHS GI - 40 IV protonix daily ID - ID on board (Dr. Ulloa) - cultures pending - zosyn 8 days completed yesterday FEN - monitor electrolytes - tube feeds, 38ml/hr Lines - L IJ removed 02/27 - peripheral line placed 02/26 dvt ppx: - scds in light of previous bleed code status: full code Dispo: Patient can be transferred to floors 24 hours after today's procedure. Visit type - Emergency Visit Emergency Visit: Yes ED Registration Date: 01/15/20 Care time: The patient presented to the Emergency Department on the above date and was hospitalized for further evaluation of their emergent condition. - New Patient This patient is new to me today: No - Critical Care Critical Care patient: Yes Total Critical Care Time (in minutes): 35 Critical Care Statement: The care of this patient involved high complexity decision making to prevent further life threatening deterioration of the patient's condition and/or to evaluate & treat vital organ system(s) failure or risk of failure. - Discharge Referral Referred to [facility] Med P.C.: No - Medication Review Med list reviewed for High Risk Meds patients 65 and older: Yes ATTENDING PHYSICIAN STATEMENT I saw and evaluated the patient. I reviewed the resident's note and discussed the case with the resident. I agree with the resident's findings and plan as documented. SUBJECTIVE: OBJECTIVE: ASSESSMENT AND PLAN:
--- NOTE | 2020-02-28 19:04 | OP ---
DATE OF OPERATION: 02/28/2020 SURGICAL ATTENDING: Leonarda Bledsoe MD. BRONCHOSCOPY ATTENDING: Korey Ayala MD. PREOPERATIVE DIAGNOSIS: Respiratory failure. POSTOPERATIVE DIAGNOSIS: Respiratory failure. ANESTHESIA: Versed and . PROCEDURE: Percutaneous tracheostomy under bronchoscopy guidance. DESCRIPTION OF PROCEDURE: The patient was taken into the operating room, placed in supine position, the endotracheal tube was checked. She was then positioned and prepped and draped in the usual sterile fashion. Local anesthesia was administered, and a horizontal incision was made in the lower anterior neck. This was carried down to subcutaneous tissues and blunt dissection was then used. The thyroid and cricoid cartilages were lifted superiorly. The needle was then placed into the anterior trachea at the 2nd tracheal ring. Its position was confirmed by bronchoscopic guidance. The wire was then placed. The needle was removed. A small dilator was placed and removed. A large dilator was placed and removed. A number 7 cuffed tracheostomy tube was then placed over the wire. The wire and dilator were then removed. Its position was confirmed by bronchoscopy. Oxygenation and ventilation were maintained. The tracheostomy tube was then sutured into place with 2-0 Prolene sutures. Tracheostomy tie was placed. The endotracheal tube was removed. The patient remained stable throughout the entire procedure. Dr. Bledsoe and Dr. Ayala were present throughout the entire procedure. LEONARDA BLEDSOE M.D. [id number]
[2020-02-29] MEDS: INSULIN SLIDING SCALE (NOVOLOG) 1 VIAL SQ SCH ×6 (02:02→23:29)
[2020-02-29] MEDS: BANATROL PLUS POWDER PACKET PO SCH ×3 (06:24→22:08)
[2020-02-29] MEDS ORDERED: SODIUM CHLORIDE 250 ML IV PRN ×2 (09:28→16:17)
--- NOTE | 2020-02-29 09:28 | PN ---
Progress Note (short form) - Note Progress Note: RENAL trached minimally responsive Last Vital Signs Temp Pulse Resp BP Pulse Ox 96.9 F L 98 H 14 122/72 98 02/29/20 06:00 02/29/20 06:00 02/29/20 06:00 02/29/20 06:00 02/29/20 06:00 trach lungs bilat breath sounds cvs s1s2 rr +DAVE abd soft ext upper ext edema neuro occasionally opens eyes, moved her left upper extremity CBC, BMP 02/28/20 05:25 02/28/20 05:25 Current Medications Generic Name Dose Route Start Last Admin Trade Name Freq PRN Reason Stop Dose Admin Acetaminophen 650 mg 02/19/20 20:56 02/20/20 21:06 Tylenol Oral Solution - GT 650 mg Q6H PRN Administration PAIN LEVEL 4 - 6 Banana Based Medical Food 1 packet 02/25/20 14:00 02/29/20 06:24 Banatrol Plus Powder Packet PO 1 packet TID JOSE Administration Collagenase 1 applic 02/09/20 10:00 02/28/20 09:35 Santyl - TP 1 applic DAILY JOSE Administration Protocol Guaifenesin 10 ml 02/19/20 20:56 02/21/20 20:49 Robitussin - GT 10 ml Q4H PRN Administration COUGH Norepinephrine Bitartrate 8,000 mcg in 500 mls @ 18.75 mls/hr 02/20/20 15:15 02/26/20 16:45 Levophed Bag IVPB 5 mcg/min TITR JOSE 18.75 mls/hr Administration Protocol 5 MCG/MIN Sodium Chloride 250 mls @ 3,000 mls/hr 02/26/20 10:08 Normal Saline - IV 02/27/20 10:09 PRN PRN Hypotension during Dialysis Insulin Aspart 1 vial 02/25/20 08:32 02/29/20 06:25 Novolog Vial Sliding Scale - SQ 4 units Q6HPO JOSE Administration Protocol Methylprednisolone Sodium Succinate 40 mg 02/28/20 10:00 02/28/20 09:30 Solu-Medrol - IVPUSH 40 mg DAILY JOSE Administration Pantoprazole Sodium 40 mg 02/21/20 10:00 02/28/20 09:30 Protonix Iv IVPUSH 40 mg DAILY JOSE Administration IMPRESSION esrd htn s/p cva x 2- hypokalemia covid 19 neg hypernatremia resolved leukocytosis proteus bacetermia remains comatose PLAN will dialyze today repeat labs continue current management continue vent support MV
[2020-02-29] MEDS ORDERED: EPOETIN ALFA-EPBX 4,000 UNIT/ML VIAL SQ ONE (10:30)
[2020-02-29] MEDS: methylPREDNISolone NA SUCC 40 MG/1 ML VIAL IVPUSH SCH (10:43)
[2020-02-29] MEDS: PANTOPRAZOLE SODIUM 40 MG VIAL IVPUSH SCH (10:43)
[2020-02-29 11:02] LABS: HEMATOCRIT 27.6 % (32.4-45.2); HEMOGLOBIN 8.8 GM/dL (10.7-15.3); MCH 30.1 pg (25.7-33.7); MCHC 31.7 g/dl (32.0-36.0); MEAN CELL VOLUME 95.1 fl (80-96); MEAN PLT VOLUME 10.4 fl (7.5-11.1); PLATELET COUNT 536 K/MM3 (134-434); RBC 2.91 M/mm3 (3.60-5.2); RDW 18.7 % (11.6-15.6)
[2020-02-29 11:10] LABS: WHITE BLOOD COUNT 33.5 K/mm3 (4.0-10.0)
--- NOTE | 2020-02-29 11:10 | PN ---
Teaching Attending Note Name of Resident: Uche Flores ATTENDING PHYSICIAN STATEMENT I saw and evaluated the patient. I reviewed the resident's note and discussed the case with the resident. I agree with the resident's findings and plan as documented. SUBJECTIVE: Pt seen and examined in the ICU. s/p tracheostomy yesterday, no overnight event s. No fevers recorded. OBJECTIVE: Vital Signs Period Temp Pulse Resp BP Sys/Ramirez Pulse Ox Last 24 Hr 96.9 F-98.0 F 86-107 14-33 88-124/53-73 87-100 Intake & Output 02/26/20 02/27/20 02/28/20 02/29/20 23:59 23:59 23:59 23:59 Intake Total 1337 581 883 596 Output Total 5573 800 400 0 Balance -4236 -219 483 596 Weight 46.266 kg 46.266 kg 46.13 kg 47.038 kg Gen: vented, poorly responsive Heart: RRR Lung: scattered rhonchi Abd: soft, nontender Ext: no edema CBC, BMP 02/29/20 09:50 Active Medications Acetaminophen (Tylenol Oral Solution -) 650 mg GT Q6H PRN PRN Reason: PAIN LEVEL 4 - 6 Last Admin: 02/20/20 21:06 Dose: 650 mg Documented by: Banana Based Medical Food (Banatrol Plus Powder Packet) 1 packet PO TID JOSE Last Admin: 02/29/20 06:24 Dose: 1 packet Documented by: Collagenase (Santyl -) 1 applic TP DAILY JOSE; Protocol Last Admin: 02/28/20 09:35 Dose: 1 applic Documented by: Guaifenesin (Robitussin -) 10 ml GT Q4H PRN PRN Reason: COUGH Last Admin: 02/21/20 20:49 Dose: 10 ml Documented by: Norepinephrine Bitartrate (Levophed Bag) 8,000 mcg in 500 mls @ 18.75 mls/hr IVPB TITR JOES; Protocol Last Admin: 02/26/20 16:45 Dose: 5 mcg/min, 18.75 mls/hr Documented by: Sodium Chloride (Normal Saline -) 250 mls @ 3,000 mls/hr IV PRN PRN PRN Reason: Hypotension during Dialysis Stop: 03/01/20 09:28 Insulin Aspart (Novolog Vial Sliding Scale -) 1 vial SQ Q6HPO [facility]; Protocol Last Admin: 02/29/20 06:25 Dose: 4 units Documented by: Methylprednisolone Sodium Succinate (Solu-Medrol -) 40 mg IVPUSH DAILY [facility] Last Admin: 02/29/20 10:43 Dose: 40 mg Documented by: Pantoprazole Sodium (Protonix Iv) 40 mg IVPUSH DAILY [facility] Last Admin: 02/29/20 10:43 Dose: 40 mg Documented by: ASSESSMENT AND PLAN: Acute Hypoxic Respiratory Failure s/p Tracheostomy Acute CVA Pneumonia likely Aspiration Proteus Bacteremia ESRD on HD HTN DM Hyperlipidemia h/o CVA - completed antibiotics - off pressors, maintain MAP >65 - HD per renal - taper off medrol - inhaled bronchodilators - titrate FiO2, PEEP to keep SpO2 >90% - enteral feeds - DVT/GI prophylaxis - can monitor on vent floor - d/c planning
--- NOTE | 2020-02-29 11:17 | PN ---
Physical Exam: SUBJECTIVE: Patient seen and examined at the bedside, trach in place OBJECTIVE: Vital Signs Period Temp Pulse Resp BP Sys/Ramirez Pulse Ox Last 24 Hr 96.9 F-98.0 F 86-107 14-33 88-124/53-73 87-100 GENERAL: The patient not alert, intubated on trach, off sedation HEAD: Normal with no signs of trauma. NECK: kim in place, no erythema, discharge LUNGS: upper lungs sounds CTA BL HEART: RRR S1, S2 without ABDOMEN: Soft, nontender, nondistended EXTREMITIES: warm, well-perfused, no edema. NEUROLOGICAL: nonresponsive Laboratory Results - last 24 hr 02/28/20 02/28/20 02/28/20 11:16 12:21 16:41 WBC RBC Hgb Hct MCV MCH MCHC RDW Plt Count MPV POC Glucometer 55 83 165 02/29/20 02/29/20 02/29/20 01:47 01:53 05:47 WBC RBC Hgb Hct MCV MCH MCHC RDW Plt Count MPV POC Glucometer 329 260 340 02/29/20 02/29/20 05:52 09:50 WBC 33.5 H* RBC 2.91 L Hgb 8.8 L Hct 27.6 L MCV 95.1 MCH 30.1 MCHC 31.7 L RDW 18.7 H Plt Count 536 H MPV 10.4 POC Glucometer 247 Active Medications Generic Name Dose Route Start Last Admin Trade Name Freq PRN Reason Stop Dose Admin Acetaminophen 650 mg 02/19/20 20:56 02/20/20 21:06 Tylenol Oral Solution - GT 650 mg Q6H PRN Administration PAIN LEVEL 4 - 6 Banana Based Medical Food 1 packet 02/25/20 14:00 02/29/20 06:24 Banatrol Plus Powder Packet PO 1 packet TID JOSE Administration Collagenase 1 applic 02/09/20 10:00 02/28/20 09:35 Santyl - TP 1 applic DAILY JOSE Administration Protocol Guaifenesin 10 ml 02/19/20 20:56 02/21/20 20:49 Robitussin - GT 10 ml Q4H PRN Administration COUGH Norepinephrine Bitartrate 8,000 mcg in 500 mls @ 18.75 mls/hr 02/20/20 15:15 02/26/20 16:45 Levophed Bag IVPB 5 mcg/min TITR JOSE 18.75 mls/hr Administration Protocol 5 MCG/MIN Sodium Chloride 250 mls @ 3,000 mls/hr 02/29/20 09:28 Normal Saline - IV 03/01/20 09:28 PRN PRN Hypotension during Dialysis Insulin Aspart 1 vial 02/25/20 08:32 02/29/20 06:25 Novolog Vial Sliding Scale - SQ 4 units Q6HPO JOSE Administration Protocol Pantoprazole Sodium 40 mg 02/21/20 10:00 02/29/20 10:43 Protonix Iv IVPUSH 40 mg DAILY JOSE Administration Prednisone 20 mg 03/01/20 10:00 Deltasone - PO DAILY JOSE ASSESSMENT/PLAN: 74 year old female w/ PMH of CVA, ESRD on HD, HTN, HLD, DM, sacral ulcer admitted to ICU for acute hypoxic respiratory failure. #Neuro - Hx of Rt MCA CVA, not currently sedated - Neuro consult: #Resp - s/p Rx for Aspiration PNA, off Zosyn () - Trach (02/27), intubated () #Cardio - Not on pressors, maintaining MAP #GI - Rectal tube in palce, C. Diff negative #Renal - HD today, nephro on board #Endo - BGMs, ISS #ID - s/p Rx for Aspiration PNA, off Zosyn () - WBC 33, likely 2/2 steroids, will monitor as steroids are rapered - Blood cx (02/19): Proteus Mirabilis, Blood cx (02/25): NG #FEN - Tube feeds #Prophylaxis: - SCDs - Protonix #Dispo: - Stable for transfer to - Full Code ATTENDING PHYSICIAN STATEMENT I saw and evaluated the patient. I reviewed the resident's note and discussed the case with the resident. I agree with the resident's findings and plan as documented. SUBJECTIVE: OBJECTIVE: ASSESSMENT AND PLAN:
[2020-02-29 11:37] LABS: BLOOD UREA NITROGEN 103.8 mg/dL (7-18); CALCIUM 7.6 mg/dL (8.5-10.1); CREATININE 3.2 mg/dL (0.55-1.3); PHOSPHOROUS 4.3 mg/dL (2.5-4.9); POTASSIUM 3.5 mmol/L (3.5-5.1)
--- NOTE | 2020-02-29 12:07 | PN ---
Progress Note (short form) - Note Progress Note: pt is in ICU trach placed no distress HD today loose stools+ on flexiseal Vital Signs - 24 hr 02/28/20 02/28/20 02/28/20 12:43 14:00 16:00 Temperature 98 F Pulse Rate 98 H 98 H Respiratory 14 14 14 Rate Blood Pressure 106/68 99/73 O2 Sat by Pulse 100 100 100 Oximetry (%) 02/28/20 02/28/20 02/28/20 16:10 18:00 20:00 Temperature 97.5 F L 98.0 F Pulse Rate 92 H 92 H Respiratory 14 14 14 Rate Blood Pressure 109/70 106/63 O2 Sat by Pulse 95 95 92 L Oximetry (%) 02/28/20 02/28/20 02/28/20 20:08 20:26 22:00 Temperature Pulse Rate 100 H Respiratory 14 14 Rate Blood Pressure 109/71 O2 Sat by Pulse 100 94 L 94 L Oximetry (%) 02/29/20 02/29/20 02/29/20 00:00 00:08 02:00 Temperature Pulse Rate 89 86 Respiratory 15 15 14 Rate Blood Pressure 124/69 120/73 O2 Sat by Pulse 98 95 87 L Oximetry (%) 02/29/20 02/29/20 02/29/20 04:00 04:11 04:36 Temperature Pulse Rate 91 H Respiratory 15 18 15 Rate Blood Pressure 102/63 O2 Sat by Pulse 91 L 100 91 L Oximetry (%) 02/29/20 02/29/20 02/29/20 06:00 08:00 08:15 Temperature 96.9 F L Pulse Rate 98 H 98 H Respiratory 14 33 H 15 Rate Blood Pressure 122/72 109/61 O2 Sat by Pulse 98 100 93 L Oximetry (%) 02/29/20 02/29/20 02/29/20 09:00 09:40 09:50 Temperature 97 F L Pulse Rate 100 H 107 H Respiratory 21 H 30 H 28 H Rate Blood Pressure 90/54 L 88/53 L O2 Sat by Pulse 100 Oximetry (%) 02/29/20 02/29/20 02/29/20 10:00 10:20 10:50 Temperature 97.8 F Pulse Rate 101 H 104 H 102 H Respiratory 22 H 26 H 26 H Rate Blood Pressure 96/64 90/60 88/52 L O2 Sat by Pulse 100 Oximetry (%) 02/29/20 02/29/20 11:20 11:50 Temperature Pulse Rate 105 H 102 H Respiratory 28 H 20 Rate Blood Pressure 98/57 L 90/53 L O2 Sat by Pulse Oximetry (%) Current Medications Generic Name Dose Route Start Last Admin Trade Name Freq PRN Reason Stop Dose Admin Acetaminophen 650 mg 02/19/20 20:56 02/20/20 21:06 Tylenol Oral Solution - GT 650 mg Q6H PRN Administration PAIN LEVEL 4 - 6 Banana Based Medical Food 1 packet 02/25/20 14:00 02/29/20 06:24 Banatrol Plus Powder Packet PO 1 packet TID JOSE Administration Collagenase 1 applic 02/09/20 10:00 02/28/20 09:35 Santyl - TP 1 applic DAILY JOSE Administration Protocol Guaifenesin 10 ml 02/19/20 20:56 02/21/20 20:49 Robitussin - GT 10 ml Q4H PRN Administration COUGH Norepinephrine Bitartrate 8,000 mcg in 500 mls @ 18.75 mls/hr 02/20/20 15:15 02/26/20 16:45 Levophed Bag IVPB 5 mcg/min TITR JOSE 18.75 mls/hr Administration Protocol 5 MCG/MIN Sodium Chloride 250 mls @ 3,000 mls/hr 02/29/20 09:28 Normal Saline - IV 03/01/20 09:28 PRN PRN Hypotension during Dialysis Insulin Aspart 1 vial 02/25/20 08:32 02/29/20 11:41 Novolog Vial Sliding Scale - SQ Not Given Q6HPO JOSE Protocol Pantoprazole Sodium 40 mg 02/21/20 10:00 02/29/20 10:43 Protonix Iv IVPUSH 40 mg DAILY JOSE Administration Prednisone 20 mg 03/01/20 10:00 Deltasone - PO DAILY JOSE Laboratory Results - last 24 hr 02/28/20 02/28/20 02/29/20 12:21 16:41 01:47 WBC RBC Hgb Hct MCV MCH MCHC RDW Plt Count MPV Sodium Potassium Chloride Carbon Dioxide Anion Gap BUN Creatinine Est GFR (CKD-EPI)AfAm Est GFR (CKD-EPI)NonAf POC Glucometer 83 165 329 Random Glucose Calcium Phosphorus Magnesium 02/29/20 02/29/20 02/29/20 01:53 05:47 05:52 WBC RBC Hgb Hct MCV MCH MCHC RDW Plt Count MPV Sodium Potassium Chloride Carbon Dioxide Anion Gap BUN Creatinine Est GFR (CKD-EPI)AfAm Est GFR (CKD-EPI)NonAf POC Glucometer 260 340 247 Random Glucose Calcium Phosphorus Magnesium 02/29/20 02/29/20 02/29/20 09:50 09:50 11:39 WBC 33.5 H* RBC 2.91 L Hgb 8.8 L Hct 27.6 L MCV 95.1 MCH 30.1 MCHC 31.7 L RDW 18.7 H Plt Count 536 H MPV 10.4 Sodium 133 L Potassium 3.5 Chloride 94 L Carbon Dioxide 21 Anion Gap 18 H BUN 103.8 H Creatinine 3.2 H Est GFR (CKD-EPI)AfAm 15.53 Est GFR (CKD-EPI)NonAf 13.40 POC Glucometer 113 Random Glucose 228 H Calcium 7.6 L Phosphorus 4.3 Magnesium 2.0 S1 S2 RRR left side edematous Lungs decreased Abd- soft, NT, GT+ No edema s/p trach ct head showed large right mca cerebral edema with minimal hemorrhagic transformation repeat ct head done on january 28 A/P acute respiratory failure fever 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 ESRD on HD aspiration pneumonia acute respiratory failure -proteus in blood sepsis -- off iv antibiotics per ID -- pt is FULL CODE -- continue with current care -- s/p trach placement -- poor prognosis -- vent management per ICU -- off pressors -- family wishes to continue current management including dialysis -- dc planning to [place] -- case hardener to prepare for discharge to [place] -- leucocytosis --> reactive, steroid induced. blood cultures negative so far cdiff negative Problem List - Problems (1) Altered mental status Code(s): R41.82 - ALTERED MENTAL STATUS, UNSPECIFIED (2) Lactic acidosis Code(s): E87.2 - ACIDOSIS (3) Pneumonia, aspiration Code(s): J69.0 - PNEUMONITIS DUE TO INHALATION OF FOOD AND VOMIT (4) Stroke Code(s): I63.9 - CEREBRAL INFARCTION, UNSPECIFIED (5) ESRD on dialysis Code(s): N18.6 - END STAGE RENAL DISEASE; Z99.2 - DEPENDENCE ON RENAL DIALYSIS (6) Hypertension Code(s): I10 - ESSENTIAL (PRIMARY) HYPERTENSION
--- NOTE | 2020-02-29 12:33 | PN ---
Progress Note (short form) - Note Progress Note: 74 year old female brought patient from [place] for unreponsivness for two days prior to admission. Patient has history of stroke three months ago and has been decline since than. Patient has no seizure, she has high wbc and suspected to have aspiration pneumonia. Patient has large right mca cerebral edema. Patient has detiorated and developed hypoxia andshe got intubated and trasnferred to icu, patient is sedated and intubated. patient is sedated on ventilator. Chart reviewd, spoke to nursing staff, no new symptoms. Patinet has been trach and waiting to go to regular floor than placement. Spoke to house staff, no new complain NEUROLOGICAL EXAMINATION Patient is comatosed, no response to pain or verbal stimuli( off sedation gag reflex corneal reflex is present not breathing above vent neck is supple pupils is small sluggsihly reactive gag and corneal reflex is present bp is maintained ct head showed large right mca cerebral edema with minimal hemorrhagic transformation repeat ct head done on january 28 Assessment/Plan 1. Large right mca acute stroke also old left mca stroke, now bi hemispheric stroke - continue supportive care - prongosis is not good , spoke to daughter at bed side 2. Respiratory failure secondary to aspiration pneumonia - Abx as per ID - had trach done, and would be trasnferred to regular floor. - 35 min cc time. Pippa sol so much Norman Plascencia MD
[2020-02-29] MEDS ORDERED: FENTANYL IVPB 500 MCG/100 ML BAG IVPB ONE (12:53)
[2020-02-29] MEDS: COLLAGENASE CLOSTRIDIUM HIST. 30 GRAMS TUBE TP SCH (13:18)
[2020-02-29] MEDS: AMINO ACIDS/PROTEIN HYDROLYS 30 ML LIQUID.PKT PO SCH (14:57)
[2020-02-29] MEDS ORDERED: guaiFENesin 200 MG/10 ML 10 ML UNIT-DOSE CUPS GT PRN (16:17)
[2020-02-29] MEDS ORDERED: ACETAMINOPHEN 650 MG/20.3 ML ORAL SOLUTION (CUPS) GT PRN (16:17)
[2020-02-29] MEDS ORDERED: EPOETIN ALFA-EPBX 3,000 UNIT/ML VIAL IVPUSH ONE (16:17)
[2020-03-01] MEDS: INSULIN SLIDING SCALE (NOVOLOG) 1 VIAL SQ SCH ×4 (05:27→23:45)
[2020-03-01] MEDS: BANATROL PLUS POWDER PACKET PO SCH ×3 (05:27→21:07)
--- NOTE | 2020-03-01 05:27 | PN ---
Progress Note, Physician Chief Complaint: Pt s/p tracheostomy; on mechanical ventilation; remains largely unresponsive History of Present Illness: Ms. Galeas is a 74 year old black female with a significant past medical history of ESRD, hypertension, DMII, GERD, HTN, and HLD, who presents to the ED, BIBA, and unresponsive x2 days. ESRD (on HD), hypertension, DMII, GERD, HTN, HL, aphasia and stroke [address] Head CT showed (01/13) right parietal, occipital and temporal lobe suggestive of acute CVA; no acute intracranial bleed ; Prolonged ICU course complicated by Acute worsening of chronic anemia, likely from stomal bleed. Elevated TNIs most likely anemia- induced ischemia. - Current Medication List Current Medications: Active Medications Acetaminophen (Tylenol Oral Solution -) 650 mg GT Q6H PRN PRN Reason: PAIN LEVEL 4 - 6 Amino Acids (Prosource No Carb Liquid Pkt) 30 ml PO DAILY JOSE Last Admin: 02/29/20 14:57 Dose: 30 ml Documented by: Banana Based Medical Food (Banatrol Plus Powder Packet) 1 packet PO TID JOSE Last Admin: 02/29/20 22:08 Dose: 1 packet Documented by: Collagenase (Santyl -) 1 applic TP DAILY JOSE; Protocol Guaifenesin (Robitussin -) 10 ml GT Q4H PRN PRN Reason: COUGH Sodium Chloride (Normal Saline -) 250 mls @ 3,000 mls/hr IV PRN PRN PRN Reason: Hypotension during Dialysis Stop: 03/01/20 09:28 Insulin Aspart (Novolog Vial Sliding Scale -) 1 vial SQ Q6HPO JOSE; Protocol Last Admin: 02/29/20 23:29 Dose: 2 units Documented by: Pantoprazole Sodium (Protonix Iv) 40 mg IVPUSH DAILY JOSE Prednisone (Deltasone -) 20 mg PO DAILY JOSE - Objective Vital Signs: Vital Signs Temperature 97.9 F 03/01/20 02:30 Pulse Rate 109 H 03/01/20 02:30 Respiratory Rate 15 03/01/20 04:30 Blood Pressure 154/57 L 03/01/20 02:30 O2 Sat by Pulse Oximetry (%) 95 03/01/20 02:30 Constitutional: Yes: Cachectic Eyes: Yes: WNL HENT: Yes: Other Neck: Yes: Decreased ROM, Other (tracheostomy) Cardiovascular: Yes: Regular Rate and Rhythm, S1, S2 (split) Respiratory: Yes: Diminished (left base), Mechanically Ventilated Gastrointestinal: Yes: Soft Genitourinary: Yes: Vasquez Present. No: Anuria Extremities: Yes: Cool Edema: Yes Edema: LLE: Trace, RLE: Trace Peripheral Pulses WNL: Yes Integumentary: Yes: Other Psychiatric: Yes: Other Labs: CBC, BMP 02/29/20 09:50 02/29/20 09:50 INR, PTT INR 1.56 (0.83-1.09) H 02/02/20 20:30 Fibrinogen 448.0 mg/dL (238-498) 02/05/20 06:00 Abnormal Lab Results 02/29/20 02/29/20 09:50 09:50 WBC 33.5 H* RBC 2.91 L Hgb 8.8 L Hct 27.6 L MCHC 31.7 L RDW 18.7 H Plt Count 536 H Sodium 133 L Chloride 94 L Anion Gap 18 H BUN 103.8 H Creatinine 3.2 H Random Glucose 228 H Calcium 7.6 L - ....Imaging Chest X-ray: Image Reviewed EKG: Image Reviewed Assessment/Plan Hypoxemia-->transfer to ICU; Initially ntubated/ mechanically ventilated; now s/p tracheostomy leukocytosis Acute right temporoparietal infarct -- Large MCA aspiration pneumonia; COVID negative ESRD -HD Respiratory failure severe Anemia elevated TNIs - most likely due to demand ischemia due to severe anemia. New LBBB 7-25-20 s/p PEG Nl EF Moderate MR moderate PHT off vasopressors Plan: S/p tracheostomy; [facility] ventilated. Off pressors. Leukocytosis EKG: NSR; LBBB TNI decreased to 0.41 on 02/21/20 Hct 27.2 lipid profile: LDL 252 in 2010; now 65 mg/dL (on no lipid-lowering agents) CC time spent: 35 minutes
--- NOTE | 2020-03-01 08:30 | PN ---
Progress Note, Physician History of Present Illness: 74 year old female with medical history of ESRD (on HD), hypertension, DMII, GERD, HTN, HL, aphasia and stroke 3 months ago, admitted to ICU fro ED for progressive weakness and reported unresponsiveness. Head CT showed (01/13) right pareital, occipital and temporal lobe suggestive of acute CVA no acute intracranial bleed ; Prolonged ICU course complicated by Acxute worsening of chronic anemia, likely from stomal bleed. Elevated TNIs most likely anemia induced ischemia. - Current Medication List Current Medications: Active Medications Acetaminophen (Tylenol Oral Solution -) 650 mg GT Q6H PRN PRN Reason: PAIN LEVEL 4 - 6 Amino Acids (Prosource No Carb Liquid Pkt) 30 ml PO DAILY [facility] Last Admin: 02/29/20 14:57 Dose: 30 ml Documented by: Banana Based Medical Food (Banatrol Plus Powder Packet) 1 packet PO TID JOSE Last Admin: 03/01/20 05:27 Dose: 1 packet Documented by: Collagenase (Santyl -) 1 applic TP DAILY [facility]; Protocol Guaifenesin (Robitussin -) 10 ml GT Q4H PRN PRN Reason: COUGH Sodium Chloride (Normal Saline -) 250 mls @ 3,000 mls/hr IV PRN PRN PRN Reason: Hypotension during Dialysis Stop: 03/01/20 09:28 Insulin Aspart (Novolog Vial Sliding Scale -) 1 vial SQ Q6HPO [facility]; Protocol Last Admin: 03/01/20 05:27 Dose: 2 units Documented by: Pantoprazole Sodium (Protonix Iv) 40 mg IVPUSH DAILY JOSE Prednisone (Deltasone -) 20 mg PO DAILY [facility] - Objective Vital Signs: Vital Signs Temperature 98.4 F 03/01/20 06:00 Pulse Rate 67 03/01/20 07:55 Respiratory Rate 18 03/01/20 07:55 Blood Pressure 104/60 03/01/20 06:00 O2 Sat by Pulse Oximetry (%) 97 03/01/20 07:55 Eyes: Yes: WNL, Conjunctiva Clear, EOM Intact HENT: Yes: WNL, Atraumatic, Normocephalic Neck: Yes: WNL, Supple, Trachea Midline Cardiovascular: Yes: WNL, Regular Rate and Rhythm Respiratory: Yes: Mechanically Ventilated, Other (s/p tracheostomy) Gastrointestinal: Yes: WNL, Normal Bowel Sounds Genitourinary: Yes: WNL Musculoskeletal: Yes: WNL Extremities: Yes: WNL Edema: No Integumentary: Yes: WNL Labs: CBC, BMP 02/29/20 09:50 02/29/20 09:50 INR, PTT INR 1.56 (0.83-1.09) H 02/02/20 20:30 Fibrinogen 448.0 mg/dL (238-498) 02/05/20 06:00 Problem List - Problems (1) Altered mental status Code(s): R41.82 - ALTERED MENTAL STATUS, UNSPECIFIED (2) Anemia Code(s): D64.9 - ANEMIA, UNSPECIFIED (3) Lactic acidosis Code(s): E87.2 - ACIDOSIS (4) Pneumonia, aspiration Code(s): J69.0 - PNEUMONITIS DUE TO INHALATION OF FOOD AND VOMIT (5) Stroke Code(s): I63.9 - CEREBRAL INFARCTION, UNSPECIFIED (6) Clotted dialysis access Code(s): T82.49XA - OTH COMPLICATION OF VASCULAR DIALYSIS CATHETER, INIT ENCNTR (7) Diabetes Code(s): E11.9 - TYPE 2 DIABETES MELLITUS WITHOUT COMPLICATIONS (8) ESRD on dialysis Code(s): N18.6 - END STAGE RENAL DISEASE; Z99.2 - DEPENDENCE ON RENAL DIALYSIS (9) Hypertension Code(s): I10 - ESSENTIAL (PRIMARY) HYPERTENSION (10) SOB (shortness of breath) Code(s): R06.02 - SHORTNESS OF BREATH Assessment/Plan Hypoxemia-->transfer to ICU; Initially ntubated/ mechanically ventilated; now s/p tracheostomy leukocytosis Acute right temporoparietal infarct -- Large MCA aspiration pneumonia; COVID negative ESRD -HD Respiratory failure severe Anemia elevated TNIs - most likely due to demand ischemia due to severe anemia. New LBBB 7-25-20 s/p PEG Nl EF Moderate MR moderate PHT off vasopressors Plan: S/p tracheostomy; [facility] ventilated. Off pressors. Leukocytosis EKG: NSR; LBBB TNI decreased to 0.41 on 02/21/20 Hct 27.2
[2020-03-01] MEDS ORDERED: PT OWN MED DRAWER 7, Y5N ONE (09:06)
[2020-03-01] MEDS: AMINO ACIDS/PROTEIN HYDROLYS 30 ML LIQUID.PKT PO SCH (09:11)
[2020-03-01] MEDS: PANTOPRAZOLE SODIUM 40 MG VIAL IVPUSH SCH (09:11)
[2020-03-01] MEDS: predniSONE 20 MG TABLET (UD) PO SCH (09:11)
--- NOTE | 2020-03-01 09:43 | PN ---
Progress Note (short form) - Note Progress Note: Background--74 year old female brought patient from [place] for unreponsivness for two days prior to admission. Patient has history of stroke three months ago and has been decline since than. Patient has no seizure, she has high wbc and suspected to have aspiration pneumo lynda. Patient has large right mca cerebral edema. Patient has detiorated and developed hypoxia andshe got intubated and trasnferred to icu, patient is sedated and intubated. patient is sedated on ventilator. --Chart reviewd, spoke to nursing staff, no new symptoms. She has trach and peg tube placement. No meaningful response. She has minimal reposne to pain. NEUROLOGICAL EXAMINATION Patient is comatosed, no response to pain or verbal stimuli( off sedation gag reflex corneal reflex is present not breathing above vent neck is supple pupils is small sluggsihly reactive gag and corneal reflex is present bp is maintained ct head showed large right mca cerebral edema with minimal hemorrhagic transformation repeat ct head done on january 28 Assessment/Plan 1. Large right mca acute stroke also old left mca stroke, now bi hemispheric stroke - continue supportive care - prongosis is guarded. waiting for placement 2. Respiratory failure secondary to aspiration pneumonia( now trach and peg tube placed - Abx as per ID -would continue to follow Pippa sol so much Norman Plascencia MD
[2020-03-01] MEDS ORDERED: predniSONE 20 MG TABLET (UD) PO SCH (10:00)
--- NOTE | 2020-03-01 10:32 | PN ---
Progress Note, Physician History of Present Illness: pt seen/ examined chart is reviewed/ events noted unresponsive s/p peg/ Trach - Current Medication List Current Medications: Active Medications Acetaminophen (Tylenol Oral Solution -) 650 mg GT Q6H PRN PRN Reason: PAIN LEVEL 4 - 6 Amino Acids (Prosource No Carb Liquid Pkt) 30 ml PO DAILY [facility] Last Admin: 03/01/20 09:11 Dose: 30 ml Documented by: Banana Based Medical Food (Banatrol Plus Powder Packet) 1 packet PO TID [facility] Last Admin: 03/01/20 05:27 Dose: 1 packet Documented by: Collagenase (Santyl -) 1 applic TP DAILY [facility]; Protocol Guaifenesin (Robitussin -) 10 ml GT Q4H PRN PRN Reason: COUGH Sodium Chloride (Normal Saline -) 250 mls @ 3,000 mls/hr IV PRN PRN PRN Reason: Hypotension during Dialysis Stop: 03/01/20 09:28 Insulin Aspart (Novolog Vial Sliding Scale -) 1 vial SQ Q6HPO [facility]; Protocol Last Admin: 03/01/20 05:27 Dose: 2 units Documented by: Pantoprazole Sodium (Protonix Iv) 40 mg IVPUSH DAILY [facility] Last Admin: 03/01/20 09:11 Dose: 40 mg Documented by: Prednisone (Deltasone -) 20 mg PO DAILY [facility] Last Admin: 03/01/20 09:11 Dose: 20 mg Documented by: - Objective Vital Signs: Vital Signs Temperature 99.3 F 03/01/20 09:17 Pulse Rate 115 H 03/01/20 09:17 Respiratory Rate 14 03/01/20 09:17 Blood Pressure 112/53 L 03/01/20 09:17 O2 Sat by Pulse Oximetry (%) 95 03/01/20 09:17 Neck: Yes: Other (s/p trach) Cardiovascular: Yes: Regular Rate and Rhythm Respiratory: Yes: Diminished Gastrointestinal: Yes: Soft Edema: No Additional Findings/Remarks: rectal tube Labs: CBC, BMP 02/29/20 09:50 02/29/20 09:50 INR, PTT INR 1.56 (0.83-1.09) H 02/02/20 20:30 Fibrinogen 448.0 mg/dL (238-498) 02/05/20 06:00 Problem List - Problems (1) Stroke Code(s): I63.9 - CEREBRAL INFARCTION, UNSPECIFIED (2) Pneumonia, aspiration Code(s): J69.0 - PNEUMONITIS DUE TO INHALATION OF FOOD AND VOMIT (3) Diabetes Code(s): E11.9 - TYPE 2 DIABETES MELLITUS WITHOUT COMPLICATIONS (4) ESRD on dialysis Code(s): N18.6 - END STAGE RENAL DISEASE; Z99.2 - DEPENDENCE ON RENAL DIALYSIS Assessment/Plan Continue present care need covid test for d/c to skilled nursing ordered d/w RN/ mailroom manager Prognosis poor will follow
[2020-03-01] MEDS ORDERED: INSULIN (NOVOLOG) ASPART 100 UNITS/ML 10ML VIAL ONE ×2 (11:22→21:05)
--- NOTE | 2020-03-01 11:40 | PN ---
Progress Note (short form) - Note Progress Note: PULMONARY Remains lethargic. 14/450/50/5 rectal tube/heel offloaders Nonverbal vss/low grade temp Constitutional: Yes: Lethargic, NAD HENT: Yes: WNL Neck: Yes: WNL Cardiovascular: Yes: Regular Rate and Rhythm, S1, S2 Respiratory: Yes: Diminished Gastrointestinal: Yes: Normal Bowel Sounds, Soft Extremities: Yes: WNL Edema: No Labs/meds/notes/images reviewed (1) Altered mental status Code(s): R41.82 - ALTERED MENTAL STATUS, UNSPECIFIED (2) Pneumonia, aspiration Code(s): J69.0 - PNEUMONITIS DUE TO INHALATION OF FOOD AND VOMIT (3) Stroke Code(s): I63.9 - CEREBRAL INFARCTION, UNSPECIFIED (4) Hypertension Code(s): I10 - ESSENTIAL (PRIMARY) HYPERTENSION (5) ESRD on dialysis Code(s): N18.6 - END STAGE RENAL DISEASE; Z99.2 - DEPENDENCE ON RENAL DIALYSIS Acute CVA Pneumonia likely Aspiration ESRD on HD HTN DM Hyperlipidemia h/o CVA - HD per Renal - aspiration precautions - O2 to keep SpO2 >90% - VTE prophylaxis - poor overall prognosis Prieto YATES MD
--- NOTE | 2020-03-01 12:15 | PN ---
Progress Note (short form) - Note Progress Note: RENAL trached minimally responsive Last Vital Signs Temp Pulse Resp BP Pulse Ox 99.3 F 115 H 16 112/53 L 97 03/01/20 09:17 03/01/20 09:17 03/01/20 11:52 03/01/20 09:17 03/01/20 11:52 trach lungs bilat breath sounds cvs s1s2 rr +DAVE abd soft ext upper ext edema neuro occasionally opens eyes, moved her left upper extremity CBC, BMP 02/29/20 09:50 02/29/20 09:50 Current Medications Generic Name Dose Route Start Last Admin Trade Name Freq PRN Reason Stop Dose Admin Acetaminophen 650 mg 02/29/20 16:17 Tylenol Oral Solution - GT Q6H PRN PAIN LEVEL 4 - 6 Amino Acids 30 ml 02/29/20 13:30 03/01/20 09:11 Prosource No Carb Liquid Pkt PO 30 ml DAILY JOSE Administration Banana Based Medical Food 1 packet 02/29/20 22:00 03/01/20 05:27 Banatrol Plus Powder Packet PO 1 packet TID JOSE Administration Collagenase 1 applic 03/01/20 10:00 Santyl - TP DAILY JOSE Protocol Guaifenesin 10 ml 02/29/20 16:17 Robitussin - GT Q4H PRN COUGH Sodium Chloride 250 mls @ 3,000 mls/hr 02/29/20 16:17 Normal Saline - IV 03/01/20 09:28 PRN PRN Hypotension during Dialysis Insulin Aspart 1 vial 02/29/20 18:00 03/01/20 05:27 Novolog Vial Sliding Scale - SQ 2 units Q6HPO JOSE Administration Protocol Pantoprazole Sodium 40 mg 03/01/20 10:00 03/01/20 09:11 Protonix Iv IVPUSH 40 mg DAILY JOSE Administration Prednisone 20 mg 03/01/20 10:00 03/01/20 09:11 Deltasone - PO 20 mg DAILY JOSE Administration IMPRESSION esrd htn s/p cva x 2- hypokalemia covid 19 neg hypernatremia resolved leukocytosis proteus bacetermia remains comatose PLAN will reeval for possible hd tomorrow repeat labs continue current management continue vent support MV
[2020-03-01] MEDS: COLLAGENASE CLOSTRIDIUM HIST. 30 GRAMS TUBE TP SCH (15:38)
[2020-03-02] MEDS ORDERED: SODIUM CHLORIDE 250 ML IV STA (03:10)
[2020-03-02] MEDS ORDERED: ACETAMINOPHEN 650 MG/20.3 ML ORAL SOLUTION (CUPS) GT ONE (03:20)
--- NOTE | 2020-03-02 03:26 | HOSP ---
Subjective - Review of Symptoms Events since last encounter: Hospitalist Encounter Was notified by the RN that the patient is hypotensive, tachypneic, tachycardic and febrile, was asked to assess. Patient at bedside, trach- vent dependent, unresponsive- baseline. Patient examined at bedside Orders placed Will monitor, if no improvement, patient will require transfer to ICU for Sepsis secondary to ? Aspiration Pneumonia Physical Examination Vital Signs: Vital Signs Temperature 98.3 F 03/01/20 22:00 Pulse Rate 110 H 03/01/20 22:00 Respiratory Rate 15 03/02/20 00:18 Blood Pressure 114/54 L 03/01/20 22:00 O2 Sat by Pulse Oximetry (%) 99 03/01/20 22:00 Constitutional: Yes: Severe Distress, Other (trach- vent dependent unresponsive- at baseline) Eyes: Yes: Conjunctiva Clear, Other (pupils- sluggish) HENT: Yes: Atraumatic, Normocephalic Neck: Yes: Supple, Other (trach- vent) Cardiovascular: Yes: Tachycardia, S1, S2 Respiratory: Yes: Accessory Muscle Use, Diminished, Mechanically Ventilated, R honchi (coarse throughout), Tachypnea, Other (trach-vent) Gastrointestinal: Yes: Soft, Other (PEG) ...Rectal Exam: Yes: Other (rectal tube- brown stool noted in tubing) Renal/: Yes: Anuria Breast(s): Yes: WNL Extremities: Yes: Cold (upper extremities) Edema: Yes Edema: LUE: 2+, RUE: 2+ Peripheral Pulses WNL: Yes Neurological: Yes: Facial Droop, Pre-Existing Deficit, Unresponsive (baseline) Labs: CBC, BMP 02/29/20 09:50 02/29/20 09:50 Laboratory Results - last 24 hr 03/01/20 03/01/20 03/01/20 05:24 12:34 17:05 POC Glucometer 171 243 326 03/01/20 03/02/20 23:44 03:44 POC Glucometer 235 143 Current Medications Generic Name Dose Route Start Last Admin Trade Name Freq PRN Reason Stop Dose Admin Acetaminophen 650 mg 02/29/20 16:17 03/02/20 01:52 Tylenol Oral Solution - GT 650 mg Q6H PRN Administration PAIN LEVEL 4 - 6 Amino Acids 30 ml 02/29/20 13:30 03/01/20 09:11 Prosource No Carb Liquid Pkt PO 30 ml DAILY JOSE Administration Banana Based Medical Food 1 packet 02/29/20 22:00 03/01/20 21:07 Banatrol Plus Powder Packet PO 1 packet TID JOSE Administration Collagenase 1 applic 03/01/20 10:00 03/01/20 15:38 Santyl - TP 1 applic DAILY JOSE Administration Protocol Guaifenesin 10 ml 02/29/20 16:17 Robitussin - GT Q4H PRN COUGH Sodium Chloride 250 mls @ 3,000 mls/hr 02/29/20 16:17 Normal Saline - IV 03/01/20 09:28 PRN PRN Hypotension during Dialysis Piperacillin Sod/Tazobactam 50 mls @ 100 mls/hr 03/02/20 04:15 Sod 2.25 gm/ Dextrose IVPB Q8H-IV JOSE Protocol Vancomycin HCl 1,000 mg/ 250 mls @ 200 mls/hr 03/02/20 04:15 Dextrose IVPB Q24H JOSE Protocol Insulin Aspart 1 vial 02/29/20 18:00 03/01/20 23:45 Novolog Vial Sliding Scale - SQ 4 units Q6HPO JOSE Administration Protocol Pantoprazole Sodium 40 mg 03/01/20 10:00 03/01/20 09:11 Protonix Iv IVPUSH 40 mg DAILY JOSE Administration Prednisone 20 mg 03/01/20 10:00 03/01/20 09:11 Deltasone - PO 20 mg DAILY JOSE Administration Microbiology 02/26/20 18:30 Blood - Peripheral Venous Blood Culture - Preliminary NO GROWTH OBTAINED AFTER 96 HOURS, INCUBATION TO CONTINUE FOR 1 DAYS. 02/26/20 15:00 Stool Clostridioides difficile Antigen - Final 02/26/20 15:00 Stool Clostridioides difficile Toxin Assay - Final 02/14/20 16:00 Blood - Central Line Blood Culture - Final NO GROWTH AFTER 5 DAYS INCUBATION 02/14/20 10:12 Blood - Peripheral Venous Blood Culture - Final NO GROWTH AFTER 5 DAYS INCUBATION 02/14/20 10:02 Blood - Peripheral Venous Blood Culture - Final NO GROWTH AFTER 5 DAYS INCUBATION 02/13/20 07:28 Blood - Peripheral Venous Blood Culture - Final Proteus Mirabilis 02/13/20 07:15 Blood - Peripheral Venous Blood Culture - Final Proteus Mirabilis 02/13/20 22:38 Stool Clostridioides difficile Antigen - Final 02/13/20 22:38 Stool Clostridioides difficile Toxin Assay - Final 02/02/20 21:00 Blood - Central Line Blood Culture - Final NO GROWTH AFTER 5 DAYS INCUBATION 02/02/20 20:45 Blood - Peripheral Venous Blood Culture - Final NO GROWTH AFTER 5 DAYS INCUBATION 02/07/20 00:01 Stool Clostridioides difficile Antigen - Final 02/07/20 00:01 Stool Clostridioides difficile Toxin Assay - Final 01/26/20 00:30 Sputum - Endotrachea Suction/Ventilator Gram Stain - Final 01/26/20 00:30 Sputum - Endotrachea Suction/Ventilator Sputum Culture - Final 01/26/20 04:05 Blood - Peripheral Venous Blood Culture - Final NO GROWTH AFTER 5 DAYS INCUBATION 01/26/20 04:05 Blood - Peripheral Venous Blood Culture - Final NO GROWTH AFTER 5 DAYS INCUBATION 01/24/20 12:51 Blood - Peripheral Venous Blood Culture - Final NO GROWTH AFTER 5 DAYS INCUBATION 01/24/20 12:42 Blood - Peripheral Venous Blood Culture - Final NO GROWTH AFTER 5 DAYS INCUBATION 01/14/20 20:10 Blood - Peripheral Venous Blood Culture - Final NO GROWTH AFTER 5 DAYS INCUBATION 01/14/20 20:10 Blood - Peripheral Venous Blood Culture - Final NO GROWTH AFTER 5 DAYS INCUBATION Hospitalist Encounter Assessment: 74 year old female with medical history of ESRD (on HD), hypertension, DMII, GERD, HTN, HL, aphasia and stroke 3 months ago, admitted to ICU fro ED for progressive weakness and reported unresponsiveness. Head CT showed (01/13) right parietal, occipital and temporal lobe suggestive of acute CVA no acute intracranial bleed s/p Trach- vent dependent s/p PEG Plan: NS Fluid Bolus 250ml- stat Tylenol 325mg liquid now (given Tylenol 650mg) CBC, CMP, Lactic Acid, Blood Cultures x2 Chest Xray portable- stat Consult ICU resident- Severe Sepsis r/o Aspiration Pneumonia d/c Tube Feeding Monitor vitals closely Outcome: Discussed case with Dr Ivey, ICU resident Labs-pending BP slightly improved with 2nd bolus WBC 52,000 from 39,000 Zosyn and Vancomycin ordered by Dr Ivey. Lactic Acid, CMP-pending Prognosis Poor Critical Care Total Critical Care Time (in minutes): 35 Critical Care Statement: The care of this patient involved high complexity decision making to prevent further life threatening deterioration of the patient's condition and/or to evaluate & treat vital organ system(s) failure or risk of failure.
[2020-03-02] MEDS ORDERED: VANCOMYCIN 1 GRAM (PRE-DOCKED) 1,000 MG/250 ML BAG IVPB SCH (04:15)
[2020-03-02 04:30] LABS: BASO % 0.2 % (0-2.0); EOS % 0.1 % (0-4.5); HEMATOCRIT 26.5 % (32.4-45.2); LYMPH % 2.5 % (8-40); MCH 29.5 pg (25.7-33.7); MCHC 30.2 g/dl (32.0-36.0); MEAN CELL VOLUME 97.6 fl (80-96); MEAN PLT VOLUME 10.5 fl (7.5-11.1); MONO % 4.1 % (3.8-10.2); NEUT % 93.1 % (42.8-82.8); PLATELET COUNT 623 K/MM3 (134-434); RBC 2.72 M/mm3 (3.60-5.2); RDW 19.9 % (11.6-15.6)
[2020-03-02 04:42] LABS: WHITE BLOOD COUNT 52.8 K/mm3 (4.0-10.0)
[2020-03-02] MEDS ORDERED: PIPERACILLIN/TAZOBACTAM 2.25 GM VIAL IVPB ONE ×3 (04:54→17:26)
[2020-03-02] MEDS ORDERED: DEXTROSE 5%-WATER - 50 ML IVPB ONE ×3 (04:54→17:26)
[2020-03-02 05:01] LABS: ALBUMIN 1.8 g/dl (3.4-5.0); BILIRUBIN,TOTAL 0.4 mg/dL (0.2-1); BLOOD UREA NITROGEN 80.5 mg/dL (7-18); CALCIUM 8.3 mg/dL (8.5-10.1); CREATININE 2.7 mg/dL (0.55-1.3); POTASSIUM 3.5 mmol/L (3.5-5.1); TOT PROT 5.6 g/dl (6.4-8.2)
[2020-03-02] MEDS: PIPERACILLIN/TAZOB 2.25 GM 2.25 GM in DEXTROSE 5%-WATER - 50 ML IVPB SCH ×3 (05:12→17:29)
--- NOTE | 2020-03-02 05:35 | CONSULT ---
Consultation: REQUESTING PROVIDER: Sera Alcocer CONSULT REQUEST: We have been asked to medically evaluate this patient for ICU admission HISTORY OF PRESENT ILLNESS: This is a 74 year old female with PMH of CVA, ESRD on HD, HTN, HLD, DM, sacral ulcer, admitted to the ICU for acute hypoxic respiratory failure with aspiration PNA. She was intubated, and tracheostomy was performed on 02/27. She was treated with Zosyn/Vanc. Blood culture was found to be positive for Proteus Mirabilis. Tonight, patient was found to be diaphoretic, hypotensive in 80s/40s, and with a temp of 101. ICU team was consulted to assess for pressor support for suspected septic shock. REVIEW OF SYSTEMS: CONSTITUTIONAL: diaphoresis Absent: fever, chills, diaphoresis, generalized weakness, malaise, loss of appetite, weight change HEENT: Absent: rhinorrhea, nasal congestion, throat pain, throat swelling, difficulty swallowing, mouth swelling, ear pain, eye pain, visual changes CARDIOVASCULAR: Absent: chest pain, syncope, palpitations, irregular heart rate, lightheadedness, peripheral edema RESPIRATORY: Absent: cough, shortness of breath, dyspnea with exertion, orthopnea, wheezing, stridor, hemoptysis GASTROINTESTINAL: Absent: abdominal pain, abdominal distension, nausea, vomiting, diarrhea, constipation, melena, hematochezia GENITOURINARY: Absent: dysuria, frequency, urgency, hesitancy, hematuria, flank pain, genital pain MUSCULOSKELETAL: Absent: myalgia, arthralgia, joint swelling, back pain, neck pain SKIN: Absent: rash, itching, pallor HEMATOLOGIC/IMMUNOLOGIC: Absent: easy bleeding, easy bruising, lymphadenopathy, frequent infections ENDOCRINE: Absent: unexplained weight gain, unexplained weight loss, heat intolerance, cold intolerance NEUROLOGIC: Absent: headache, focal weakness or paresthesias, dizziness, unsteady gait, seizure, mental status changes, bladder or bowel incontinence PSYCHIATRIC: Absent: anxiety, depression, suicidal or homicidal ideation, hallucinations. PHYSICAL EXAMINATION Vital Signs - 24 hr 03/01/20 03/01/20 03/01/20 06:00 07:55 09:17 Temperature 98.4 F 99.3 F Pulse Rate 110 H 67 115 H Respiratory 15 18 14 Rate Blood Pressure 104/60 112/53 L O2 Sat by Pulse 99 97 95 Oximetry (%) 03/01/20 03/01/20 03/01/20 10:00 11:52 14:00 Temperature 98.2 F Pulse Rate 119 H Respiratory 16 16 Rate Blood Pressure 113/59 L O2 Sat by Pulse 95 97 Oximetry (%) 03/01/20 03/01/20 03/01/20 15:35 18:00 20:15 Temperature 98.1 F Pulse Rate 118 H Respiratory 15 15 19 Rate Blood Pressure 101/57 L O2 Sat by Pulse 96 98 Oximetry (%) 03/01/20 03/01/20 03/01/20 20:16 21:00 22:00 Temperature 98.3 F Pulse Rate 68 110 H Respiratory 16 Rate Blood Pressure 114/54 L O2 Sat by Pulse 98 98 99 Oximetry (%) 03/02/20 03/02/20 03/02/20 00:18 02:00 04:30 Temperature 101.4 F H Pulse Rate 123 H Respiratory 15 35 H 14 Rate Blood Pressure 90/47 L O2 Sat by Pulse 99 Oximetry (%) GENERAL: Pt not alert or oriented, not different from baseline, on trach. Appears to be diaphoretic HEAD: Normal with no signs of trauma. NECK: Trach in place, no erythema, discharge LUNGS: B/L crackles HEART: RRR S1, S2 without rubs, murmurs ABDOMEN: Soft, nontender, nondistended, PEG tube in place EXTREMITIES: warm, well-perfused, no edema. NEUROLOGICAL: nonresponsive Laboratory Results - last 24 hr 03/01/20 03/01/20 03/01/20 05:24 12:34 17:05 WBC RBC Hgb Hct MCV MCH MCHC RDW Plt Count MPV Absolute Neuts (auto) Neutrophils % Lymphocytes % Monocytes % Eosinophils % Basophils % Nucleated RBC % Sodium Potassium Chloride Carbon Dioxide Anion Gap BUN Creatinine Est GFR (CKD-EPI)AfAm Est GFR (CKD-EPI)NonAf POC Glucometer 171 243 326 Random Glucose Lactic Acid Calcium Total Bilirubin AST ALT Alkaline Phosphatase Creatine Kinase Troponin I Total Protein Albumin 03/01/20 03/02/20 03/02/20 23:44 03:44 03:45 WBC RBC Hgb Hct MCV MCH MCHC RDW Plt Count MPV Absolute Neuts (auto) Neutrophils % Lymphocytes % Monocytes % Eosinophils % Basophils % Nucleated RBC % Sodium Potassium Chloride Carbon Dioxide Anion Gap BUN Creatinine Est GFR (CKD-EPI)AfAm Est GFR (CKD-EPI)NonAf POC Glucometer 235 143 Random Glucose Lactic Acid 6.0 H* Calcium Total Bilirubin AST ALT Alkaline Phosphatase Creatine Kinase Troponin I Total Protein Albumin 03/02/20 03/02/20 03:45 03:45 WBC 52.8 H* RBC 2.72 L Hgb 8.0 L Hct 26.5 L MCV 97.6 H MCH 29.5 MCHC 30.2 L RDW 19.9 H Plt Count 623 H MPV 10.5 Absolute Neuts (auto) 49.2 H Neutrophils % 93.1 H Lymphocytes % 2.5 L D Monocytes % 4.1 Eosinophils % 0.1 D Basophils % 0.2 Nucleated RBC % 0 Sodium 137 Potassium 3.5 Chloride 98 Carbon Dioxide 23 Anion Gap 16 BUN 80.5 H Creatinine 2.7 H Est GFR (CKD-EPI)AfAm 19.07 Est GFR (CKD-EPI)NonAf 16.46 POC Glucometer Random Glucose 132 H Lactic Acid Calcium 8.3 L Total Bilirubin 0.4 AST 31 ALT 20 Alkaline Phosphatase 270 H Creatine Kinase 48 Troponin I 0.64 H* Total Protein 5.6 L Albumin 1.8 L Active Medications Generic Name Dose Route Start Last Admin Trade Name Freq PRN Reason Stop Dose Admin Acetaminophen 650 mg 02/29/20 16:17 03/02/20 01:52 Tylenol Oral Solution - GT 650 mg Q6H PRN Administration PAIN LEVEL 4 - 6 Amino Acids 30 ml 02/29/20 13:30 03/01/20 09:11 Prosource No Carb Liquid Pkt PO 30 ml DAILY JOSE Administration Banana Based Medical Food 1 packet 02/29/20 22:00 03/01/20 21:07 Banatrol Plus Powder Packet PO 1 packet TID JOSE Administration Collagenase 1 applic 03/01/20 10:00 03/01/20 15:38 Santyl - TP 1 applic DAILY JOSE Administration Protocol Guaifenesin 10 ml 02/29/20 16:17 Robitussin - GT Q4H PRN COUGH Sodium Chloride 250 mls @ 3,000 mls/hr 02/29/20 16:17 Normal Saline - IV 03/01/20 09:28 PRN PRN Hypotension during Dialysis Piperacillin Sod/Tazobactam 50 mls @ 100 mls/hr 03/02/20 04:15 03/02/20 05:12 Sod 2.25 gm/ Dextrose IVPB 100 mls/hr Q8H-IV JOSE Administration Protocol Vancomycin HCl 1,000 mg in 250 mls @ 166.667 mls/hr 03/02/20 04:15 Vancomycin (Pre-Docked) IVPB Q24H JOSE Protocol Insulin Aspart 1 vial 02/29/20 18:00 03/01/20 23:45 Novolog Vial Sliding Scale - SQ 4 units Q6HPO JOSE Administration Protocol Pantoprazole Sodium 40 mg 03/01/20 10:00 03/01/20 09:11 Protonix Iv IVPUSH 40 mg DAILY JOSE Administration Prednisone 20 mg 03/01/20 10:00 03/01/20 09:11 Deltasone - PO 20 mg DAILY JOSE Administration ASSESSMENT/PLAN: 74 year old female w/ PMH of CVA, ESRD on HD, HTN, HLD, DM, sacral ulcer previously admitted to ICU for acute hypoxic respiratory failure/Aspiration PNA, trach placed 3 days ago, transferred to floors 2 days ago, found to be febrile, hypotensive, and diaphoretic tonight. #Sepsis - BP 80s/40s, Temp 101, crackles on exam, Aspiration PNA? - Trop 0.64, will trend, EKG ordered, LA 6.0, will trend and continue hydration - CXR ordered - Given N/S 1L, tube feeds stopped, will avoid aggressive hydration due to ESRD. Last Echo 02/04 with EF 55-60% - BP improved to 90s/50s with MAP 64 after 250cc, will continue hydrating - Tylenol and ice packs for fever - Started on Zosyn/Vanc - BGM 121 #Dispo: - Will re-assess pt after fluid resuscitation ATTENDING PHYSICIAN STATEMENT I saw and evaluated the patient. I reviewed the resident's note and discussed the case with the resident. I agree with the resident's findings and plan as documented. SUBJECTIVE: OBJECTIVE: ASSESSMENT AND PLAN:
[2020-03-02] MEDS ORDERED: SODIUM CHLORIDE 500 ML IV STA ×2 (05:38→08:26)
[2020-03-02] MEDS: INSULIN SLIDING SCALE (NOVOLOG) 1 VIAL SQ SCH ×3 (05:49→16:59)
[2020-03-02] MEDS: BANATROL PLUS POWDER PACKET PO SCH ×3 (05:50→21:58)
[2020-03-02] MEDS: VANCOMYCIN 1 GRAM (PRE-DOCKED) 1,000 MG/250 ML BAG IVPB SCH (09:13)
[2020-03-02] MEDS: COLLAGENASE CLOSTRIDIUM HIST. 30 GRAMS TUBE TP SCH (10:30)
--- NOTE | 2020-03-02 11:02 | PN ---
Progress Note, Physician History of Present Illness: pt seen/ examined . events noted of last night had fever Back on abx bp stable overall condition same wbc >50 c diff -ve - Current Medication List Current Medications: Active Medications Acetaminophen (Tylenol Oral Solution -) 650 mg GT Q6H PRN PRN Reason: PAIN LEVEL 4 - 6 Last Admin: 03/02/20 01:52 Dose: 650 mg Documented by: Amino Acids (Prosource No Carb Liquid Pkt) 30 ml PO DAILY JOSE Last Admin: 03/01/20 09:11 Dose: 30 ml Documented by: Banana Based Medical Food (Banatrol Plus Powder Packet) 1 packet PO TID JOSE Last Admin: 03/02/20 05:50 Dose: 1 packet Documented by: Collagenase (Santyl -) 1 applic TP DAILY JOSE; Protocol Last Admin: 03/01/20 15:38 Dose: 1 applic Documented by: Guaifenesin (Robitussin -) 10 ml GT Q4H PRN PRN Reason: COUGH Sodium Chloride (Normal Saline -) 250 mls @ 3,000 mls/hr IV PRN PRN PRN Reason: Hypotension during Dialysis Stop: 03/01/20 09:28 Piperacillin Sod/Tazobactam (Sod 2.25 gm/ Dextrose) 50 mls @ 100 mls/hr IVPB Q8H-IV JOSE; Protocol Last Admin: 03/02/20 05:12 Dose: 100 mls/hr Documented by: Vancomycin HCl (Vancomycin (Pre-Docked)) 1,000 mg in 250 mls @ 166.667 mls/hr IVPB Q24H JOSE; Protocol Stop: 03/03/20 10:29 Last Admin: 03/02/20 09:13 Dose: 166.667 mls/hr Documented by: Insulin Aspart (Novolog Vial Sliding Scale -) 1 vial SQ Q6HPO JOSE; Protocol Last Admin: 03/02/20 05:49 Dose: Not Given Documented by: Pantoprazole Sodium (Protonix Iv) 40 mg IVPUSH DAILY JOSE Last Admin: 03/01/20 09:11 Dose: 40 mg Documented by: Prednisone (Deltasone -) 20 mg PO DAILY JOSE Last Admin: 03/01/20 09:11 Dose: 20 mg Documented by: Vancomycin HCl (Vancomycin (Pre-Docked)) 1,000 mg IVPB Q24H JOSE - Objective Vital Signs: Vital Signs Temperature 97.1 F L 03/02/20 09:01 Pulse Rate 102 H 03/02/20 09:01 Respiratory Rate 16 03/02/20 09:01 Blood Pressure 138/70 03/02/20 09:01 O2 Sat by Pulse Oximetry (%) 97 03/02/20 06:55 Neck: Yes: Other (s/p trach) Cardiovascular: Yes: Regular Rate and Rhythm Respiratory: Yes: Diminished Gastrointestinal: Yes: Soft, Other (s/p g tube) Edema: No Labs: CBC, BMP 03/02/20 03:45 03/02/20 03:45 INR, PTT INR 1.56 (0.83-1.09) H 02/02/20 20:30 Fibrinogen 448.0 mg/dL (238-498) 02/05/20 06:00 Problem List - Problems (1) Stroke Code(s): I63.9 - CEREBRAL INFARCTION, UNSPECIFIED (2) Pneumonia, aspiration Code(s): J69.0 - PNEUMONITIS DUE TO INHALATION OF FOOD AND VOMIT (3) Diabetes Code(s): E11.9 - TYPE 2 DIABETES MELLITUS WITHOUT COMPLICATIONS (4) ESRD on dialysis Code(s): N18.6 - END STAGE RENAL DISEASE; Z99.2 - DEPENDENCE ON RENAL DIALYSIS Assessment/Plan Continue present care abx restart feeding d/w RN Prognosis poor will follow
[2020-03-02] MEDS: PANTOPRAZOLE SODIUM 40 MG VIAL IVPUSH SCH (11:03)
[2020-03-02 11:34] LABS: ANISOCYTOSIS 1+; MACROCYTOSIS 1+; PLATELET ESTIMATE INCREASED
--- NOTE | 2020-03-02 12:02 | PN ---
Progress Note (short form) - Note Progress Note: RENAL trached minimally responsive her bp dropped overnioght and was given ivf Last Vital Signs Temp Pulse Resp BP Pulse Ox 97.1 F L 102 H 16 138/70 97 03/02/20 09:01 03/02/20 09:01 03/02/20 09:01 03/02/20 09:01 03/02/20 06:55 trach lungs bilat breath sounds cvs s1s2 rr +DAVE abd soft ext upper ext edema neuro unresponsive CBC, BMP 03/02/20 03:45 03/02/20 03:45 Current Medications Generic Name Dose Route Start Last Admin Trade Name Freq PRN Reason Stop Dose Admin Acetaminophen 650 mg 02/29/20 16:17 03/02/20 01:52 Tylenol Oral Solution - GT 650 mg Q6H PRN Administration PAIN LEVEL 4 - 6 Amino Acids 30 ml 02/29/20 13:30 03/01/20 09:11 Prosource No Carb Liquid Pkt PO 30 ml DAILY JOSE Administration Banana Based Medical Food 1 packet 02/29/20 22:00 03/02/20 05:50 Banatrol Plus Powder Packet PO 1 packet TID JOSE Administration Collagenase 1 applic 03/01/20 10:00 03/01/20 15:38 Santyl - TP 1 applic DAILY JOSE Administration Protocol Guaifenesin 10 ml 02/29/20 16:17 Robitussin - GT Q4H PRN COUGH Sodium Chloride 250 mls @ 3,000 mls/hr 02/29/20 16:17 Normal Saline - IV 03/01/20 09:28 PRN PRN Hypotension during Dialysis Piperacillin Sod/Tazobactam 50 mls @ 100 mls/hr 03/02/20 04:15 03/02/20 05:12 Sod 2.25 gm/ Dextrose IVPB 100 mls/hr Q8H-IV JOSE Administration Protocol Vancomycin HCl 1,000 mg in 250 mls @ 166.667 mls/hr 03/02/20 09:00 03/02/20 09:13 Vancomycin (Pre-Docked) IVPB 03/03/20 10:29 166.667 mls/hr Q24H JOSE Administration Protocol Insulin Aspart 1 vial 02/29/20 18:00 03/02/20 05:49 Novolog Vial Sliding Scale - SQ Not Given Q6HPO JOSE Protocol Pantoprazole Sodium 40 mg 08/28/20 10:00 03/01/20 09:11 Protonix Iv IVPUSH 40 mg DAILY JOSE Administration Prednisone 20 mg 03/01/20 10:00 03/01/20 09:11 Deltasone - PO 20 mg DAILY JOSE Administration Vancomycin HCl 1,000 mg 03/03/20 09:00 Vancomycin (Pre-Docked) IVPB Q24H JOSE IMPRESSION esrd htn now septic s/p cva x 2- hypokalemia covid 19 neg hypernatremia resolved leukocytosis worsened proteus bacetermia remains comatose PLAN broad spectrum antibiotics would not dialyze given instability vanco per trough ?need for prednisone id follow up MV
--- NOTE | 2020-03-02 13:02 | PN ---
Progress Note (short form) - Note Progress Note: PULMONARY Vented, poorly responsive. Febrile overnight. Vital Signs Period Temp Pulse Resp BP Sys/Ramirez Pulse Ox Last 24 Hr 97.1 F-101.4 F 68-123 14-35 82-138/42-70 96-99 Gen: vented, poorly responsive Heart: RRR Lung: decreased breath sounds at the bases Abd: soft, nontender Ext: no edema CBC, BMP 03/02/20 03:45 03/02/20 03:45 Active Medications Acetaminophen (Tylenol Oral Solution -) 650 mg GT Q6H PRN PRN Reason: PAIN LEVEL 4 - 6 Last Admin: 03/02/20 01:52 Dose: 650 mg Documented by: Amino Acids (Prosource No Carb Liquid Pkt) 30 ml PO DAILY JOSE Last Admin: 03/01/20 09:11 Dose: 30 ml Documented by: Banana Based Medical Food (Banatrol Plus Powder Packet) 1 packet PO TID JOSE Last Admin: 03/02/20 05:50 Dose: 1 packet Documented by: Collagenase (Santyl -) 1 applic TP DAILY JOSE; Protocol Last Admin: 03/02/20 10:30 Dose: 1 applic Documented by: Guaifenesin (Robitussin -) 10 ml GT Q4H PRN PRN Reason: COUGH Sodium Chloride (Normal Saline -) 250 mls @ 3,000 mls/hr IV PRN PRN PRN Reason: Hypotension during Dialysis Stop: 03/01/20 09:28 Piperacillin Sod/Tazobactam (Sod 2.25 gm/ Dextrose) 50 mls @ 100 mls/hr IVPB Q8H-IV JOSE; Protocol Last Admin: 03/02/20 11:15 Dose: 100 mls/hr Documented by: Vancomycin HCl (Vancomycin (Pre-Docked)) 1,000 mg in 250 mls @ 166.667 mls/hr IVPB Q24H JOSE; Protocol Stop: 03/03/20 10:29 Last Admin: 03/02/20 09:13 Dose: 166.667 mls/hr Documented by: Insulin Aspart (Novolog Vial Sliding Scale -) 1 vial SQ Q6HPO JOSE; Protocol Last Admin: 03/02/20 12:08 Dose: Not Given Documented by: Pantoprazole Sodium (Protonix Iv) 40 mg IVPUSH DAILY JOSE Last Admin: 03/02/20 11:03 Dose: 40 mg Documented by: Prednisone (Deltasone -) 20 mg PO DAILY JOSE Last Admin: 03/01/20 09:11 Dose: 20 mg Documented by: Vancomycin HCl (Vancomycin (Pre-Docked)) 1,000 mg IVPB Q24H JOSE A/P Acute Hypoxic Respiratory Failure s/p Tracheostomy Acute CVA Pneumonia likely Aspiration Proteus Bacteremia ESRD on HD HTN DM Hyperlipidemia h/o CVA - continue antibiotics - off pressors, maintain MAP >65 - HD per renal - taper off medrol - inhaled bronchodilators - titrate FiO2, PEEP to keep SpO2 >90% - enteral feeds - DVT/GI prophylaxis
[2020-03-02] MEDS: AMINO ACIDS/PROTEIN HYDROLYS 30 ML LIQUID.PKT PO SCH (13:19)
[2020-03-02] MEDS: predniSONE 20 MG TABLET (UD) PO SCH (13:19)
[2020-03-02] MEDS ORDERED: PT OWN MED DRAWER 7, Y5N ONE (21:45)
[2020-03-03] MEDS: INSULIN SLIDING SCALE (NOVOLOG) 1 VIAL SQ SCH ×5 (00:12→23:44)
[2020-03-03] MEDS ORDERED: DEXTROSE 5%-WATER - 50 ML IVPB ONE ×3 (01:54→16:38)
[2020-03-03] MEDS ORDERED: PIPERACILLIN/TAZOBACTAM 2.25 GM VIAL IVPB ONE ×3 (01:54→16:37)
[2020-03-03] MEDS: PIPERACILLIN/TAZOB 2.25 GM 2.25 GM in DEXTROSE 5%-WATER - 50 ML IVPB SCH ×3 (02:18→17:03)
[2020-03-03] MEDS ORDERED: SODIUM CHLORIDE 250 ML IV STA (03:17)
[2020-03-03] MEDS ORDERED: SODIUM CHLORIDE 500 ML IV STA (04:21)
[2020-03-03] MEDS ORDERED: PT OWN MED DRAWER 7, Y5N ONE ×3 (04:56→21:49)
[2020-03-03] MEDS: BANATROL PLUS POWDER PACKET PO SCH ×3 (04:59→21:53)
[2020-03-03] MEDS: predniSONE 20 MG TABLET (UD) PO SCH (09:17)
[2020-03-03] MEDS: COLLAGENASE CLOSTRIDIUM HIST. 30 GRAMS TUBE TP SCH (09:17)
[2020-03-03] MEDS: AMINO ACIDS/PROTEIN HYDROLYS 30 ML LIQUID.PKT PO SCH (09:17)
[2020-03-03] MEDS: PANTOPRAZOLE SODIUM 40 MG VIAL IVPUSH SCH (09:17)
[2020-03-03] MEDS: VANCOMYCIN 1 GRAM (PRE-DOCKED) 1,000 MG/250 ML BAG IVPB SCH (09:17)
--- NOTE | 2020-03-03 11:25 | PN ---
Progress Note, Physician History of Present Illness: pt seen/ examined . events noted of last night given fluids for hypotension comfortable not in pain overall condition same - Current Medication List Current Medications: Active Medications Acetaminophen (Tylenol Oral Solution -) 650 mg GT Q6H PRN PRN Reason: PAIN LEVEL 4 - 6 Last Admin: 03/02/20 01:52 Dose: 650 mg Documented by: Amino Acids (Prosource No Carb Liquid Pkt) 30 ml PO DAILY JOSE Last Admin: 03/03/20 09:17 Dose: 30 ml Documented by: Banana Based Medical Food (Banatrol Plus Powder Packet) 1 packet PO TID JOSE Last Admin: 03/03/20 04:59 Dose: 1 packet Documented by: Collagenase (Santyl -) 1 applic TP DAILY JOSE; Protocol Last Admin: 03/03/20 09:17 Dose: 1 applic Documented by: Guaifenesin (Robitussin -) 10 ml GT Q4H PRN PRN Reason: COUGH Sodium Chloride (Normal Saline -) 250 mls @ 3,000 mls/hr IV PRN PRN PRN Reason: Hypotension during Dialysis Stop: 03/01/20 09:28 Piperacillin Sod/Tazobactam (Sod 2.25 gm/ Dextrose) 50 mls @ 100 mls/hr IVPB Q8H-IV JOSE; Protocol Last Admin: 03/03/20 09:16 Dose: 100 mls/hr Documented by: Insulin Aspart (Novolog Vial Sliding Scale -) 1 vial SQ Q6HPO JOSE; Protocol Last Admin: 03/03/20 05:04 Dose: 2 units Documented by: Pantoprazole Sodium (Protonix Iv) 40 mg IVPUSH DAILY JOSE Last Admin: 03/03/20 09:17 Dose: 40 mg Documented by: Prednisone (Deltasone -) 20 mg PO DAILY JOSE Last Admin: 03/03/20 09:17 Dose: 20 mg Documented by: Vancomycin HCl (Vancomycin (Pre-Docked)) 1,000 mg IVPB Q24H JOSE - Objective Vital Signs: Vital Signs Temperature 98.1 F 03/03/20 09:54 Pulse Rate 98 H 03/03/20 07:03 Respiratory Rate 24 H 03/03/20 09:54 Blood Pressure 90/52 L 03/03/20 09:54 O2 Sat by Pulse Oximetry (%) 97 03/03/20 07:03 Neck: Yes: Other (Status post tracheostomy) Cardiovascular: Yes: Regular Rate and Rhythm Respiratory: Yes: Diminished Gastrointestinal: Yes: Soft, Other (status post G-tube) Edema: No Labs: CBC, BMP 03/02/20 03:45 03/02/20 03:45 INR, PTT INR 1.56 (0.83-1.09) H 02/02/20 20:30 Fibrinogen 448.0 mg/dL (238-498) 02/05/20 06:00 Problem List - Problems (1) Stroke Code(s): I63.9 - CEREBRAL INFARCTION, UNSPECIFIED (2) Pneumonia, aspiration Code(s): J69.0 - PNEUMONITIS DUE TO INHALATION OF FOOD AND VOMIT (3) Diabetes Code(s): E11.9 - TYPE 2 DIABETES MELLITUS WITHOUT COMPLICATIONS (4) ESRD on dialysis Code(s): N18.6 - END STAGE RENAL DISEASE; Z99.2 - DEPENDENCE ON RENAL DIALYSIS Assessment/Plan Continue present care abx restarted feeding fluid challenge--- if blood pressure less than 80 systolic as needed Discussed with ICU attending also Prognosis poor d/w RN also we'll continue to follow
--- NOTE | 2020-03-03 12:00 | PN ---
Progress Note (short form) - Note Progress Note: PULMONARY Vented, poorly responsive. Hypotensive. Vital Signs Period Temp Pulse Resp BP Sys/Ramirez Pulse Ox Last 24 Hr 97.7 F-98.7 F 98-120 18-30 82-108/44-72 93-100 Gen: vented, poorly responsive Heart: RRR Lung: decreased breath sounds at the bases Abd: soft, nontender Ext: no edema CBC, BMP 03/02/20 03:45 03/02/20 03:45 Active Medications Acetaminophen (Tylenol Oral Solution -) 650 mg GT Q6H PRN PRN Reason: PAIN LEVEL 4 - 6 Last Admin: 03/02/20 01:52 Dose: 650 mg Documented by: Amino Acids (Prosource No Carb Liquid Pkt) 30 ml PO DAILY JOSE Last Admin: 03/03/20 09:17 Dose: 30 ml Documented by: Banana Based Medical Food (Banatrol Plus Powder Packet) 1 packet PO TID JOSE Last Admin: 03/03/20 04:59 Dose: 1 packet Documented by: Collagenase (Santyl -) 1 applic TP DAILY JOSE; Protocol Last Admin: 03/03/20 09:17 Dose: 1 applic Documented by: Guaifenesin (Robitussin -) 10 ml GT Q4H PRN PRN Reason: COUGH Sodium Chloride (Normal Saline -) 250 mls @ 3,000 mls/hr IV PRN PRN PRN Reason: Hypotension during Dialysis Stop: 03/01/20 09:28 Piperacillin Sod/Tazobactam (Sod 2.25 gm/ Dextrose) 50 mls @ 100 mls/hr IVPB Q8 H-IV JOSE; Protocol Last Admin: 03/03/20 09:16 Dose: 100 mls/hr Documented by: Insulin Aspart (Novolog Vial Sliding Scale -) 1 vial SQ Q6HPO JOSE; Protocol Last Admin: 03/03/20 11:50 Dose: 2 units Documented by: Pantoprazole Sodium (Protonix Iv) 40 mg IVPUSH DAILY JOSE Last Admin: 03/03/20 09:17 Dose: 40 mg Documented by: Prednisone (Deltasone -) 20 mg PO DAILY JOSE Last Admin: 03/03/20 09:17 Dose: 20 mg Documented by: Vancomycin HCl (Vancomycin (Pre-Docked)) 1,000 mg IVPB Q24H JOSE A/P Acute Hypoxic Respiratory Failure s/p Tracheostomy Acute CVA Pneumonia likely Aspiration Proteus Bacteremia ESRD on HD HTN DM Hyperlipidemia h/o CVA - continue antibiotics - off pressors, maintain MAP >65 - HD per renal - taper off medrol - inhaled bronchodilators - titrate FiO2, PEEP to keep SpO2 >90% - enteral feeds - DVT/GI prophylaxis - recommend comfort measures, given her multiple medical issues with a baseline poor functional status, aggressive therapy would be medically futile and likely cause unnecessary suffering to patient
--- NOTE | 2020-03-03 12:06 | EKG ---
Test Reason : Blood Pressure : / mmHG Vent. Rate : 105 BPM Atrial Rate : 105 BPM P-R Int : 146 ms QRS Dur : 136 ms QT Int : 410 ms P-R-T Axes : 046 -01 173 degrees QTc Int : 541 ms SINUS TACHYCARDIA LEFT BUNDLE BRANCH BLOCK ABNORMAL ECG WHEN COMPARED WITH ECG OF 05-FEB-2020 09:42, NO SIGNIFICANT CHANGE WAS FOUND Confirmed by MOIRA BAILON MD ([id number]) on 03/03/2020 12:06:25 PM Referred By: Confirmed By:MOIRA BAILON MD
[2020-03-03] MEDS ORDERED: SODIUM CHLORIDE 250 ML IV PRN (12:28)
[2020-03-04] MEDS ORDERED: PIPERACILLIN/TAZOBACTAM 2.25 GM VIAL IVPB ONE ×2 (01:01→09:48)
[2020-03-04] MEDS ORDERED: DEXTROSE 5%-WATER - 50 ML IVPB ONE ×2 (01:01→09:48)
[2020-03-04] MEDS: PIPERACILLIN/TAZOB 2.25 GM 2.25 GM in DEXTROSE 5%-WATER - 50 ML IVPB SCH ×2 (01:45→09:57)
[2020-03-04] MEDS ORDERED: PT OWN MED DRAWER 7, Y5N ONE ×2 (06:09→14:30)
[2020-03-04] MEDS: INSULIN SLIDING SCALE (NOVOLOG) 1 VIAL SQ SCH ×4 (06:36→23:23)
[2020-03-04] MEDS: BANATROL PLUS POWDER PACKET PO SCH ×3 (06:36→21:12)
[2020-03-04] MEDS ORDERED: INSULIN (LEVEMIR) 100 UNITS/ML UNITS SQ ONE (06:53)
[2020-03-04] MEDS ORDERED: INSULIN (NOVOLOG) ASPART 100 UNITS/ML 10ML VIAL ONE (06:54)
--- NOTE | 2020-03-04 07:50 | PN ---
Progress Note, Physician History of Present Illness: pulmonary no change,unresponsive on vent support ac mode - Current Medication List Current Medications: Active Medications Acetaminophen (Tylenol Oral Solution -) 650 mg GT Q6H PRN PRN Reason: PAIN LEVEL 4 - 6 Last Admin: 03/02/20 01:52 Dose: 650 mg Documented by: Amino Acids (Prosource No Carb Liquid Pkt) 30 ml PO DAILY [facility] Last Admin: 03/03/20 09:17 Dose: 30 ml Documented by: Banana Based Medical Food (Banatrol Plus Powder Packet) 1 packet PO TID [facility] Last Admin: 03/04/20 06:36 Dose: 1 packet Documented by: Collagenase (Santyl -) 1 applic TP DAILY [facility]; Protocol Last Admin: 03/03/20 09:17 Dose: 1 applic Documented by: Guaifenesin (Robitussin -) 10 ml GT Q4H PRN PRN Reason: COUGH Piperacillin Sod/Tazobactam (Sod 2.25 gm/ Dextrose) 50 mls @ 100 mls/hr IVPB Q8H-IV JOSE; Protocol Last Admin: 03/04/20 01:45 Dose: 100 mls/hr Documented by: Sodium Chloride (Normal Saline -) 250 mls @ 250 mls/hr IV ASDIR PRN PRN Reason: SBP < 80 Insulin Aspart (Novolog Vial Sliding Scale -) 1 vial SQ Q6HPO [facility]; Protocol Last Admin: 03/04/20 06:36 Dose: 2 units Documented by: Pantoprazole Sodium (Protonix Iv) 40 mg IVPUSH DAILY [facility] Last Admin: 03/03/20 09:17 Dose: 40 mg Documented by: Prednisone (Deltasone -) 20 mg PO DAILY [facility] Last Admin: 03/03/20 09:17 Dose: 20 mg Documented by: Vancomycin HCl (Vancomycin (Pre-Docked)) 1,000 mg IVPB Q24H [facility] - Objective Vital Signs: Vital Signs Temperature 98.1 F 03/04/20 06:00 Pulse Rate 103 H 03/04/20 06:00 Respiratory Rate 18 03/04/20 06:00 Blood Pressure 105/51 L 03/04/20 06:00 O2 Sat by Pulse Oximetry (%) 97 03/04/20 06:00 Constitutional: Yes: Thin, Other (unresponsive) Eyes: Yes: WNL HENT: Yes: WNL Neck: Yes: Supple (trach) Cardiovascular: Yes: Regular Rate and Rhythm, S1, S2 Respiratory: Yes: Diminished Gastrointestinal: Yes: Normal Bowel Sounds, Soft Extremities: Yes: WNL Edema: No Labs: CBC, BMP 03/02/20 03:45 03/02/20 03:45 INR, PTT INR 1.56 (0.83-1.09) H 02/02/20 20:30 Fibrinogen 448.0 mg/dL (238-498) 02/05/20 06:00 Problem List - Problems (1) Altered mental status Code(s): R41.82 - ALTERED MENTAL STATUS, UNSPECIFIED (2) Pneumonia, aspiration Code(s): J69.0 - PNEUMONITIS DUE TO INHALATION OF FOOD AND VOMIT (3) Stroke Code(s): I63.9 - CEREBRAL INFARCTION, UNSPECIFIED (4) Hypertension Code(s): I10 - ESSENTIAL (PRIMARY) HYPERTENSION (5) ESRD on dialysis Code(s): N18.6 - END STAGE RENAL DISEASE; Z99.2 - DEPENDENCE ON RENAL DIALYSIS Assessment/Plan A/P Acute Hypoxic Respiratory Failure s/p Tracheostomy Acute CVA Pneumonia likely Aspiration Proteus Bacteremia ESRD on HD HTN DM Hyperlipidemia h/o CVA - continue antibiotics - HD per renal - Prednisone - inhaled bronchodilators - titrate FiO2, PEEP to keep SpO2 >90% - enteral feeds - DVT/GI prophylaxis - recommend comfort measures, given her multiple medical issues with a baseline poor functional status, aggressive therapy would be medically futile and likely cause unnecessary suffering to patient DR RAMIREZ
[2020-03-04] MEDS: COLLAGENASE CLOSTRIDIUM HIST. 30 GRAMS TUBE TP SCH (09:57)
[2020-03-04] MEDS: AMINO ACIDS/PROTEIN HYDROLYS 30 ML LIQUID.PKT PO SCH (09:58)
[2020-03-04] MEDS: predniSONE 20 MG TABLET (UD) PO SCH (09:58)
[2020-03-04] MEDS: PANTOPRAZOLE SODIUM 40 MG VIAL IVPUSH SCH (09:58)
--- NOTE | 2020-03-04 10:37 | PN ---
Progress Note (short form) - Note Progress Note: RENAL trached minimally responsive Last Vital Signs Temp Pulse Resp BP Pulse Ox 98.1 F 99 H 16 105/51 L 98 03/04/20 06:00 03/04/20 08:30 03/04/20 08:30 03/04/20 06:00 03/04/20 08:30 trach lungs bilat breath sounds cvs s1s2 rr +DAVE abd soft ext upper ext edema neuro unresponsive CBC, BMP 03/02/20 03:45 03/02/20 03:45 Current Medications Generic Name Dose Route Start Last Admin Trade Name Freq PRN Reason Stop Dose Admin Acetaminophen 650 mg 02/29/20 16:17 03/02/20 01:52 Tylenol Oral Solution - GT 650 mg Q6H PRN Administration PAIN LEVEL 4 - 6 Amino Acids 30 ml 02/29/20 13:30 03/04/20 09:58 Prosource No Carb Liquid Pkt PO 30 ml DAILY JOSE Administration Banana Based Medical Food 1 packet 02/29/20 22:00 03/04/20 06:36 Banatrol Plus Powder Packet PO 1 packet TID JOSE Administration Collagenase 1 applic 03/01/20 10:00 03/04/20 09:57 Santyl - TP 1 applic DAILY JOSE Administration Protocol Guaifenesin 10 ml 02/29/20 16:17 Robitussin - GT Q4H PRN COUGH Piperacillin Sod/Tazobactam 50 mls @ 100 mls/hr 03/02/20 04:15 03/04/20 09:57 Sod 2.25 gm/ Dextrose IVPB 100 mls/hr Q8H-IV JOSE Administration Protocol Sodium Chloride 250 mls @ 250 mls/hr 03/03/20 12:28 Normal Saline - IV ASDIR PRN SBP < 80 Insulin Aspart 1 vial 02/29/20 18:00 03/04/20 06:36 Novolog Vial Sliding Scale - SQ 2 units Q6HPO JOSE Administration Protocol Pantoprazole Sodium 40 mg 03/01/20 10:00 03/04/20 09:58 Protonix Iv IVPUSH 40 mg DAILY JOSE Administration Prednisone 20 mg 03/01/20 10:00 03/04/20 09:58 Deltasone - PO 20 mg DAILY JOSE Administration Vancomycin HCl 1,000 mg 03/03/20 09:00 Vancomycin (Pre-Docked) IVPB Q24H JOSE IMPRESSION esrd BP has been better s/p cva x 2- hypokalemia covid 19 neg hypernatremia resolved leukocytosis worsened proteus bacetermia remains comatose PLAN will dialyze today repeat labs monitor vanco troughs MV
[2020-03-04] MEDS ORDERED: SODIUM CHLORIDE 250 ML IV PRN (10:38)
--- NOTE | 2020-03-04 10:41 | PN ---
Progress Note (short form) - Note Progress Note: Background--74 year old female brought patient from [place] for unreponsivness for two days prior to admission. Patient has history of stroke three months ago and has been decline since than. Patient has no seizure, she has high wbc and suspected to have aspiration pneumo lynda. Patient has large right mca cerebral edema. Patient has detiorated and developed hypoxia andshe got intubated and trasnferred to icu, patient is sedated and intubated. patient is sedated on ventilator. --Chart reviewd, spoke to nursing staff, no new symptoms. She has trach and peg tube placement. No meaningful response. She has minimal reposne to pain. and wbc is going up NEUROLOGICAL EXAMINATION Patient is comatosed, no response to pain or verbal stimuli( off sedation gag reflex corneal reflex is present not breathing above vent neck is supple pupils is small sluggsihly reactive gag and corneal reflex is present bp is maintained -- neuro exam unchanged ct head showed large right mca cerebral edema with minimal hemorrhagic transformation repeat ct head done on january 28 Assessment/Plan 1. Large right mca acute stroke also old left mca stroke, now bi hemispheric stroke - continue supportive care - prongosis is guarded. waiting for placement 2. Respiratory failure secondary to aspiration pneumonia( now trach and peg tube placed - ID follow up -would continue to follow Pippa sol so much Norman Placsencia MD
--- NOTE | 2020-03-04 11:36 | PN ---
Progress Note, Physician History of Present Illness: pt seen/ examined . overall condition same BP stable all f/u noted - Current Medication List Current Medications: Active Medications Acetaminophen (Tylenol Oral Solution -) 650 mg GT Q6H PRN PRN Reason: PAIN LEVEL 4 - 6 Last Admin: 03/02/20 01:52 Dose: 650 mg Documented by: Amino Acids (Prosource No Carb Liquid Pkt) 30 ml PO DAILY [facility]SE Last Admin: 03/04/20 09:58 Dose: 30 ml Documented by: Banana Based Medical Food (Banatrol Plus Powder Packet) 1 packet PO TID JOSE Last Admin: 03/04/20 06:36 Dose: 1 packet Documented by: Collagenase (Santyl -) 1 applic TP DAILY JO[facility]; Protocol Last Admin: 03/04/20 09:57 Dose: 1 applic Documented by: Guaifenesin (Robitussin -) 10 ml GT Q4H PRN PRN Reason: COUGH Piperacillin Sod/Tazobactam (Sod 2.25 gm/ Dextrose) 50 mls @ 100 mls/hr IVPB Q8H-IV JOSE; Protocol Last Admin: 03/04/20 09:57 Dose: 100 mls/hr Documented by: Sodium Chloride (Normal Saline -) 250 mls @ 250 mls/hr IV ASDIR PRN PRN Reason: SBP < 80 Sodium Chloride (Normal Saline -) 250 mls @ 3,000 mls/hr IV PRN PRN PRN Reason: Hypotension during Dialysis Stop: 03/05/20 10:38 Insulin Aspart (Novolog Vial Sliding Scale -) 1 vial SQ Q6HPO JOSE; Protocol Last Admin: 03/04/20 06:36 Dose: 2 units Documented by: Pantoprazole Sodium (Protonix Iv) 40 mg IVPUSH DAILY [facility] Last Admin: 03/04/20 09:58 Dose: 40 mg Documented by: Prednisone (Deltasone -) 20 mg PO DAILY [facility] Last Admin: 03/04/20 09:58 Dose: 20 mg Documented by: Vancomycin HCl (Vancomycin (Pre-Docked)) 1,000 mg IVPB Q24H JOSE - Objective Vital Signs: Vital Signs Temperature 97.7 F 03/04/20 10:00 Pulse Rate 99 H 03/04/20 10:00 Respiratory Rate 18 03/04/20 10:00 Blood Pressure 104/60 08/31/20 10:00 O2 Sat by Pulse Oximetry (%) 100 03/04/20 10:00 Constitutional: Yes: Other (unresponsive) Cardiovascular: Yes: Regular Rate and Rhythm Respiratory: Yes: Diminished Gastrointestinal: Yes: Soft Edema: No Labs: CBC, BMP 03/02/20 03:45 03/02/20 03:45 INR, PTT INR 1.56 (0.83-1.09) H 02/02/20 20:30 Fibrinogen 448.0 mg/dL (238-498) 02/05/20 06:00 Problem List - Problems (1) Stroke Code(s): I63.9 - CEREBRAL INFARCTION, UNSPECIFIED (2) Pneumonia, aspiration Code(s): J69.0 - PNEUMONITIS DUE TO INHALATION OF FOOD AND VOMIT (3) Diabetes Code(s): E11.9 - TYPE 2 DIABETES MELLITUS WITHOUT COMPLICATIONS (4) ESRD on dialysis Code(s): N18.6 - END STAGE RENAL DISEASE; Z99.2 - DEPENDENCE ON RENAL DIALYSIS Assessment/Plan Continue present care abx continue same dialysis per renal Prognosis poor d/w RN also i/d f/u has been requested we'll continue to follow
[2020-03-04 14:03] LABS: HEMATOCRIT 22.2 % (32.4-45.2); MCH 29.8 pg (25.7-33.7); MCHC 30.8 g/dl (32.0-36.0); MEAN CELL VOLUME 96.6 fl (80-96); MEAN PLT VOLUME 10.2 fl (7.5-11.1); PLATELET COUNT 366 K/MM3 (134-434); RDW 20.7 % (11.6-15.6)
[2020-03-04 14:18] LABS: HEMOGLOBIN 6.8 GM/dL (10.7-15.3); WHITE BLOOD COUNT 33.1 K/mm3 (4.0-10.0)
[2020-03-04 14:39] LABS: BLOOD UREA NITROGEN 97.9 mg/dL (7-18); CALCIUM 8.3 mg/dL (8.5-10.1); CREATININE 3.4 mg/dL (0.55-1.3); POTASSIUM 3.4 mmol/L (3.5-5.1)
[2020-03-04] MEDS: VANCOMYCIN 1 GM in D5W (PRE-DOCKED) 1,000 MG/250 ML IVPB SCH (15:02)
[2020-03-04 16:07] VITALS: BMI 16.9
--- NOTE | 2020-03-04 16:55 | PN ---
Progress Note, Physician History of Present Illness: 74 year old female with medical history of ESRD (on HD), hypertension, DMII, GERD, HTN, HL, aphasia and stroke 3 months ago, admitted to ICU fro ED for progressive weakness and reported unresponsiveness. Head CT showed (01/13) right pareital, occipital and temporal lobe suggestive of acute CVA no acute intracranial bleed ; Prolonged ICU course complicated by Acxute worsening of chronic anemia, likely from stomal bleed. Elevated TNIs most likely anemia induced ischemia. - Current Medication List Current Medications: Active Medications Acetaminophen (Tylenol Oral Solution -) 650 mg GT Q6H PRN PRN Reason: PAIN LEVEL 4 - 6 Last Admin: 03/02/20 01:52 Dose: 650 mg Documented by: Amino Acids (Prosource No Carb Liquid Pkt) 30 ml PO DAILY [facility] Last Admin: 03/04/20 09:58 Dose: 30 ml Documented by: Banana Based Medical Food (Banatrol Plus Powder Packet) 1 packet PO TID JOSE Last Admin: 03/04/20 15:18 Dose: 1 packet Documented by: Collagenase (Santyl -) 1 applic TP DAILY JOSE; Protocol Last Admin: 03/04/20 09:57 Dose: 1 applic Documented by: Guaifenesin (Robitussin -) 10 ml GT Q4H PRN PRN Reason: COUGH Sodium Chloride (Normal Saline -) 250 mls @ 250 mls/hr IV ASDIR PRN PRN Reason: SBP < 80 Sodium Chloride (Normal Saline -) 250 mls @ 3,000 mls/hr IV PRN PRN PRN Reason: Hypotension during Dialysis Stop: 03/05/20 10:38 Insulin Aspart (Novolog Vial Sliding Scale -) 1 vial SQ Q6HPO JOSE; Protocol Last Admin: 03/04/20 15:16 Dose: 4 units Documented by: Pantoprazole Sodium (Protonix Iv) 40 mg IVPUSH DAILY JOSE Last Admin: 03/04/20 09:58 Dose: 40 mg Documented by: Prednisone (Deltasone -) 20 mg PO DAILY JOSE Last Admin: 03/04/20 09:58 Dose: 20 mg Documented by: - Objective Vital Signs: Vital Signs Temperature 97.7 F 03/04/20 15:00 Pulse Rate 98 H 03/04/20 15:35 Respiratory Rate 17 03/04/20 16:48 Blood Pressure 112/33 L 03/04/20 15:35 O2 Sat by Pulse Oximetry (%) 99 03/04/20 16:48 Eyes: Yes: WNL, Conjunctiva Clear, EOM Intact HENT: Yes: WNL, Atraumatic, Normocephalic Neck: Yes: WNL, Supple, Trachea Midline Cardiovascular: Yes: WNL, Regular Rate and Rhythm Respiratory: Yes: Diminished, Mechanically Ventilated, Other (s/p tracheostomy) Gastrointestinal: Yes: WNL, Normal Bowel Sounds Genitourinary: Yes: WNL Musculoskeletal: Yes: WNL Extremities: Yes: WNL Edema: No Integumentary: Yes: WNL Neurological: Yes: WNL, Alert, Oriented ...Motor Strength: WNL Psychiatric: Yes: WNL Labs: CBC, BMP 03/04/20 12:30 03/04/20 12:30 INR, PTT INR 1.56 (0.83-1.09) H 02/02/20 20:30 Fibrinogen 448.0 mg/dL (238-498) 02/05/20 06:00 Problem List - Problems (1) Altered mental status Code(s): R41.82 - ALTERED MENTAL STATUS, UNSPECIFIED (2) Anemia Code(s): D64.9 - ANEMIA, UNSPECIFIED (3) Lactic acidosis Code(s): E87.2 - ACIDOSIS (4) Pneumonia, aspiration Code(s): J69.0 - PNEUMONITIS DUE TO INHALATION OF FOOD AND VOMIT (5) Stroke Code(s): I63.9 - CEREBRAL INFARCTION, UNSPECIFIED (6) Clotted dialysis access Code(s): T82.49XA - OTH COMPLICATION OF VASCULAR DIALYSIS CATHETER, INIT ENCNTR (7) Diabetes Code(s): E11.9 - TYPE 2 DIABETES MELLITUS WITHOUT COMPLICATIONS (8) ESRD on dialysis Code(s): N18.6 - END STAGE RENAL DISEASE; Z99.2 - DEPENDENCE ON RENAL DIALYSIS (9) Hypertension Code(s): I10 - ESSENTIAL (PRIMARY) HYPERTENSION (10) SOB (shortness of breath) Code(s): R06.02 - SHORTNESS OF BREATH Assessment/Plan Hypoxemia-->transfer to ICU; Initially ntubated/ mechanically ventilated; now s/p tracheostomy leukocytosis Acute right temporoparietal infarct -- Large MCA aspiration pneumonia; COVID negative ESRD -HD Respiratory failure severe Anemia elevated TNIs - most likely due to demand ischemia due to severe anemia. New LBBB 7-25-20 s/p PEG Nl EF Moderate MR moderate PHT off vasopressors Plan: [facility]p [facility] Off pressors. Leukocytosis EKG: NSR; LBBB TNI decreased to 0.41 on 02/21/20 Hct 27.2
[2020-03-05] MEDS: INSULIN SLIDING SCALE (NOVOLOG) 1 VIAL SQ SCH ×2 (06:02→12:35)
[2020-03-05] MEDS: BANATROL PLUS POWDER PACKET PO SCH ×2 (06:12→14:41)
--- NOTE | 2020-03-05 07:50 | PN ---
Progress Note, Physician History of Present Illness: pulmonary no change,unresponsive on vent support ac mode,-resp distress - Current Medication List Current Medications: Active Medications Acetaminophen (Tylenol Oral Solution -) 650 mg GT Q6H PRN PRN Reason: PAIN LEVEL 4 - 6 Last Admin: 03/02/20 01:52 Dose: 650 mg Documented by: Amino Acids (Prosource No Carb Liquid Pkt) 30 ml PO DAILY [facility] Last Admin: 03/04/20 09:58 Dose: 30 ml Documented by: Banana Based Medical Food (Banatrol Plus Powder Packet) 1 packet PO TID [facility] Last Admin: 03/05/20 06:12 Dose: 1 packet Documented by: Collagenase (Santyl -) 1 applic TP DAILY [facility]; Protocol Last Admin: 03/04/20 09:57 Dose: 1 applic Documented by: Guaifenesin (Robitussin -) 10 ml GT Q4H PRN PRN Reason: COUGH Sodium Chloride (Normal Saline -) 250 mls @ 250 mls/hr IV ASDIR PRN PRN Reason: SBP < 80 Sodium Chloride (Normal Saline -) 250 mls @ 3,000 mls/hr IV PRN PRN PRN Reason: Hypotension during Dialysis Stop: 03/05/20 10:38 Insulin Aspart (Novolog Vial Sliding Scale -) 1 vial SQ Q6HPO [facility]; Protocol Last Admin: 03/05/20 06:02 Dose: 4 units Documented by: Pantoprazole Sodium (Protonix Iv) 40 mg IVPUSH DAILY [facility] Last Admin: 03/04/20 09:58 Dose: 40 mg Documented by: Prednisone (Deltasone -) 20 mg PO DAILY [facility] Last Admin: 03/04/20 09:58 Dose: 20 mg Documented by: - Objective Vital Signs: Vital Signs Temperature 97.9 F 03/05/20 05:00 Pulse Rate 102 H 03/05/20 05:00 Respiratory Rate 23 H 03/05/20 05:00 Blood Pressure 126/64 03/05/20 05:00 O2 Sat by Pulse Oximetry (%) 100 03/05/20 05:00 Constitutional: Yes: Thin, Other (unresponsive) Eyes: Yes: WNL HENT: Yes: WNL Neck: Yes: Supple (trach) Cardiovascular: Yes: Regular Rate and Rhythm, S1, S2 Respiratory: Yes: Rhonchi (few rhonchi) Gastrointestinal: Yes: Normal Bowel Sounds, Soft Extremities: Yes: WNL Edema: No Labs: CBC, BMP 03/04/20 12:30 Problem List - Problems (1) Altered mental status Code(s): R41.82 - ALTERED MENTAL STATUS, UNSPECIFIED (2) Pneumonia, aspiration Code(s): J69.0 - PNEUMONITIS DUE TO INHALATION OF FOOD AND VOMIT (3) Stroke Code(s): I63.9 - CEREBRAL INFARCTION, UNSPECIFIED (4) Hypertension Code(s): I10 - ESSENTIAL (PRIMARY) HYPERTENSION (5) ESRD on dialysis Code(s): N18.6 - END STAGE RENAL DISEASE; Z99.2 - DEPENDENCE ON RENAL DIALYSIS Assessment/Plan A/P Acute Hypoxic Respiratory Failure s/p Tracheostomy Acute CVA Pneumonia likely Aspiration Proteus Bacteremia ESRD on HD HTN DM Hyperlipidemia h/o CVA - antibiotics completed - HD per renal - Prednisone - inhaled bronchodilators - titrate FiO2, PEEP to keep SpO2 >90% - enteral feeds - DVT/GI prophylaxis - recommend comfort measures, given her multiple medical issues with a baseline poor functional status, aggressive therapy would be medically futile and likely cause unnecessary suffering to patient DR RAMIREZ
--- NOTE | 2020-03-05 10:46 | PN ---
Progress Note (short form) - Note Progress Note: RENAL trached minimally responsive unchanged Last Vital Signs Temp Pulse Resp BP Pulse Ox 98.0 F 112 H 15 125/66 99 03/05/20 08:50 03/05/20 08:50 03/05/20 08:50 03/05/20 08:50 03/05/20 08:50 trach lungs bilat breath sounds cvs s1s2 rr +DAVE abd soft ext upper ext edema neuro unresponsive CBC, BMP 03/04/20 12:30 03/04/20 12:30 Current Medications Generic Name Dose Route Start Last Admin Trade Name Freq PRN Reason Stop Dose Admin Acetaminophen 650 mg 02/29/20 16:17 03/02/20 01:52 Tylenol Oral Solution - GT 650 mg Q6H PRN Administration PAIN LEVEL 4 - 6 Amino Acids 30 ml 02/29/20 13:30 03/04/20 09:58 Prosource No Carb Liquid Pkt PO 30 ml DAILY JOSE Administration Banana Based Medical Food 1 packet 02/29/20 22:00 03/05/20 06:12 Banatrol Plus Powder Packet PO 1 packet TID JOSE Administration Collagenase 1 applic 03/01/20 10:00 03/04/20 09:57 Santyl - TP 1 applic DAILY JOSE Administration Protocol Guaifenesin 10 ml 02/29/20 16:17 Robitussin - GT Q4H PRN COUGH Sodium Chloride 250 mls @ 250 mls/hr 03/03/20 12:28 Normal Saline - IV ASDIR PRN SBP < 80 Sodium Chloride 250 mls @ 3,000 mls/hr 03/04/20 10:38 Normal Saline - IV 03/05/20 10:38 PRN PRN Hypotension during Dialysis Insulin Aspart 1 vial 02/29/20 18:00 03/05/20 06:02 Novolog Vial Sliding Scale - SQ 4 units Q6HPO JOSE Administration Protocol Pantoprazole Sodium 40 mg 03/01/20 10:00 03/04/20 09:58 Protonix Iv IVPUSH 40 mg DAILY [facility]SE Administration Prednisone 20 mg 03/01/20 10:00 03/04/20 09:58 Deltasone - PO 20 mg DAILY JOSE Administration IMPRESSION esrd BP has been better s/p cva x 2- hypokalemia covid 19 neg hypernatremia resolved leukocytosis worsened proteus bacetermia remains comatose PLAN Her state has not changed. Ideally, we should withdraw care given her overall state after 2 cva's. She has no quality of life and no understanding of her situation. Will keep on dialysis for now. if possible would get an ethics committee meeting MV
[2020-03-05] MEDS: predniSONE 20 MG TABLET (UD) PO SCH (10:51)
[2020-03-05] MEDS: AMINO ACIDS/PROTEIN HYDROLYS 30 ML LIQUID.PKT PO SCH (10:51)
[2020-03-05] MEDS: PANTOPRAZOLE SODIUM 40 MG VIAL IVPUSH SCH (10:51)
[2020-03-05 11:18] LABS: HEMOGLOBIN 9.2 GM/dL (10.7-15.3); MCH 29.6 pg (25.7-33.7); MCHC 31.9 g/dl (32.0-36.0); MEAN PLT VOLUME 10.3 fl (7.5-11.1); PLATELET COUNT 314 K/MM3 (134-434); RBC 3.12 M/mm3 (3.60-5.2); RDW 21.1 % (11.6-15.6); WHITE BLOOD COUNT 29.6 K/mm3 (4.0-10.0)
[2020-03-05] MEDS ORDERED: INSULIN (NOVOLOG) ASPART 100 UNITS/ML 10ML VIAL ONE ×2 (11:19→11:20)
[2020-03-05 11:51] LABS: ALBUMIN 1.6 g/dl (3.4-5.0); BILIRUBIN,TOTAL 0.3 mg/dL (0.2-1); CALCIUM 8.4 mg/dL (8.5-10.1); CREATININE 2.3 mg/dL (0.55-1.3); PHOSPHOROUS 2.9 mg/dL (2.5-4.9); POTASSIUM 3.2 mmol/L (3.5-5.1); TOT PROT 5.4 g/dl (6.4-8.2)
[2020-03-05 12:00] LABS: BLOOD UREA NITROGEN 62.9 mg/dL (7-18)
[2020-03-05] MEDS: COLLAGENASE CLOSTRIDIUM HIST. 30 GRAMS TUBE TP SCH (12:33)
--- NOTE | 2020-03-05 13:08 | DS ---
Physical Examination Vital Signs: Vital Signs Temperature 98.0 F 03/05/20 08:50 Pulse Rate 105 H 03/05/20 12:20 Respiratory Rate 15 03/05/20 12:20 Blood Pressure 125/66 03/05/20 08:50 O2 Sat by Pulse Oximetry (%) 99 03/05/20 12:20 Constitutional: Yes: No Distress, Other (facial droop) Cardiovascular: Yes: Regular Rate and Rhythm Respiratory: Yes: Diminished Gastrointestinal: Yes: Normal Bowel Sounds, Soft. No: Tenderness Edema: Yes Edema: LUE: 2+, RUE: 2+, LLE: 2+, RLE: 2+ Neurological: Yes: Unresponsive Labs: CBC, BMP 03/05/20 10:26 03/05/20 10:26 Discharge Summary Problems reviewed: Yes Reason For Visit: CEREBROVASCULAR ACCIDENT CVA Current Active Problems Altered mental status (Acute) Anemia (Acute) Lactic acidosis (Acute) Pneumonia, aspiration (Acute) Stroke (Acute) Hospital Course: HPI 74 year old female brought patient from [place] for unresponsiveness for two days prior to admission. Patient has history of stroke three months ago and has been decline since than. Patient has been awake two days ago and slowly became aphasic and unreponsive. Patient has no seizure, she has high wbc and suspected to have aspiration pneumonia. Patient has large right mca cerebral edema. She is intubated and not on any sedation and no response to painful stimuli her nih score was 33 and she was out of window for tpa on arrival HOSPITAL COURSE Long hospital stay -- she has large MCA stroke which is progressing CT scans subsequently showed interval minimal hemorrhagic transformation. Pt initially was maintaining her airway - has been unresponsive ever since admission- she had acuet respiratory failure and was intubated , tracheostomy placed on 02/27 GT placed on 01/27 Pt was on iv antibiotics for proteus in the blood-- blood cultures repeated after are negative She has loose bm-- cdiff negative- likely due to feeds and GI dysfunction ongoing conversations with family-- they want her to be full code Recommend comfort measures, given her multiple medical issues with a baseline poor functional status, aggressive therapy would be medically futile and likely cause unnecessary suffering to patient CT abd/pelvis- distended gallbladder with gallstones, stercoral colitis pt has completed antibiotics she has elevated WBC -- trending down Was on stress dose steroids afebrile leucocytosis is reactive Guarded prognosis will dc flexiseal she continues to have dialysis, GT feeding , vent support she was evaluated by ICU team,pulmonary, ID, Cardiology, ENT surgeon, renal,Neurology and GI time spent for preparing dc --- 35 min Condition: Critical - Instructions Diet, Activity, Other Instructions: Recommend palliative -- comfort measures, given her multiple medical issues with a baseline poor functional status, aggressive therapy would be medically futile and likely cause unnecessary suffering to patient Referrals: Frederic Helms MD [Primary Care Provider] - - Home Medications Comprehensive Discharge Medication List: Ambulatory Orders Albuterol Sulfate Inhaler - [Ventolin Hfa Inhaler -] 2 puff IH Q6H 01/15/20 Amlodipine Besylate 10 mg PO DAILY 01/15/20 Atorvastatin Ca [Lipitor] 40 mg PO HS 01/15/20 Clopidogrel Bisulfate [Clopidogrel] 75 mg PO DAILY 01/15/20 Famotidine [Pepcid -] 40 mg PO DAILY 01/15/20 Labetalol HCl [Normodyne -] 200 mg PO BID 01/15/20 Ursodiol [Actigal] 300 mg PO BID 01/15/20 Valsartan 160 mg PO DAILY 01/15/20 Acetaminophen 650 mg PO Q6H PRN 02/04/20 Silver Sulfadiazine 1% Top Cr [Silvadene -] 1 applic TP DAILY 02/04/20 Vitamin B Comp W-C [Nephro-Breann -] 1 tablet PO DAILY 02/04/20
[2020-03-05] MEDS ORDERED: PT OWN MED DRAWER 7, Y5N ONE (14:40)
[2020-03-05 15:06] VITALS: BP 123/62; PULSE 94; TEMP 98.9
--- NOTE | 2020-03-05 15:17 | PN ---
Progress Note, Physician History of Present Illness: 74 year old female with medical history of ESRD (on HD), hypertension, DMII, GERD, HTN, HL, aphasia and stroke 3 months ago, admitted to ICU fro ED for progressive weakness and reported unresponsiveness. Head CT showed (01/13) right pareital, occipital and temporal lobe suggestive of acute CVA no acute intracranial bleed ; Prolonged ICU course complicated by Acxute worsening of chronic anemia, likely from stomal bleed. Elevated TNIs most likely anemia induced ischemia. - Current Medication List Current Medications: Active Medications Acetaminophen (Tylenol Oral Solution -) 650 mg GT Q6H PRN PRN Reason: PAIN LEVEL 4 - 6 Last Admin: 03/02/20 01:52 Dose: 650 mg Documented by: Amino Acids (Prosource No Carb Liquid Pkt) 30 ml PO DAILY [facility] Last Admin: 03/05/20 10:51 Dose: 30 ml Documented by: Banana Based Medical Food (Banatrol Plus Powder Packet) 1 packet PO TID JOSE Last Admin: 03/05/20 14:41 Dose: 1 packet Documented by: Collagenase (Santyl -) 1 applic TP DAILY JOSE; Protocol Last Admin: 03/05/20 12:33 Dose: 1 applic Documented by: Guaifenesin (Robitussin -) 10 ml GT Q4H PRN PRN Reason: COUGH Sodium Chloride (Normal Saline -) 250 mls @ 250 mls/hr IV ASDIR PRN PRN Reason: SBP < 80 Sodium Chloride (Normal Saline -) 250 mls @ 3,000 mls/hr IV PRN PRN PRN Reason: Hypotension during Dialysis Stop: 03/05/20 10:38 Insulin Aspart (Novolog Vial Sliding Scale -) 1 vial SQ Q6HPO JOSE; Protocol Last Admin: 03/05/20 12:35 Dose: 8 units Documented by: Pantoprazole Sodium (Protonix Iv) 40 mg IVPUSH DAILY JOSE Last Admin: 03/05/20 10:51 Dose: 40 mg Documented by: Prednisone (Deltasone -) 20 mg PO DAILY JOSE Last Admin: 03/05/20 10:51 Dose: 20 mg Documented by: - Objective Vital Signs: Vital Signs Temperature 98.9 F 03/05/20 15:00 Pulse Rate 94 H 03/05/20 15:00 Respiratory Rate 17 03/05/20 15:00 Blood Pressure 123/62 03/05/20 15:00 O2 Sat by Pulse Oximetry (%) 99 03/05/20 15:00 Eyes: Yes: WNL, Conjunctiva Clear, EOM Intact HENT: Yes: WNL, Atraumatic, Normocephalic Neck: Yes: WNL, Supple, Trachea Midline Cardiovascular: Yes: WNL, Regular Rate and Rhythm Respiratory: Yes: Intubated, Mechanically Ventilated Gastrointestinal: Yes: WNL, Normal Bowel Sounds Genitourinary: Yes: WNL Musculoskeletal: Yes: WNL Extremities: Yes: WNL Edema: No Integumentary: Yes: WNL Labs: CBC, BMP 03/05/20 10:26 03/05/20 10:26 INR, PTT INR 1.56 (0.83-1.09) H 02/02/20 20:30 Fibrinogen 448.0 mg/dL (238-498) 02/05/20 06:00 Problem List - Problems (1) Altered mental status Code(s): R41.82 - ALTERED MENTAL STATUS, UNSPECIFIED (2) Anemia Code(s): D64.9 - ANEMIA, UNSPECIFIED (3) Lactic acidosis Code(s): E87.2 - ACIDOSIS (4) Pneumonia, aspiration Code(s): J69.0 - PNEUMONITIS DUE TO INHALATION OF FOOD AND VOMIT (5) Stroke Code(s): I63.9 - CEREBRAL INFARCTION, UNSPECIFIED (6) Clotted dialysis access Code(s): T82.49XA - OTH COMPLICATION OF VASCULAR DIALYSIS CATHETER, INIT ENCNTR (7) Diabetes Code(s): E11.9 - TYPE 2 DIABETES MELLITUS WITHOUT COMPLICATIONS (8) ESRD on dialysis Code(s): N18.6 - END STAGE RENAL DISEASE; Z99.2 - DEPENDENCE ON RENAL DIALYSIS (9) Hypertension Code(s): I10 - ESSENTIAL (PRIMARY) HYPERTENSION (10) SOB (shortness of breath) Code(s): R06.02 - SHORTNESS OF BREATH Assessment/Plan Hypoxemia-->transfer to ICU; Initially ntubated/ mechanically ventilated; now s/p tracheostomy leukocytosis Acute right temporoparietal infarct -- Large MCA aspiration pneumonia; COVID negative ESRD -HD Respiratory failure severe Anemia elevated TNIs - most likely due to demand ischemia due to severe anemia. New LBBB 7-25-20 s/p PEG Nl EF Moderate MR moderate PHT off vasopressors Plan: S/p tracheostomy; mech ventilated. Off pressors. Leukocytosis EKG: NSR; LBBB TNI decreased to 0.41 on 02/21/20 Hct 27.2
--- NOTE | 2020-03-05 16:12 | PN ---
Progress Note (short form) - Note Progress Note: 74 year old female brought patient from [place] for unreponsivness for two days prior to admission. Patient has history of stroke three months ago and has been decline since than. Patient has no seizure, she has high wbc and suspected to have aspiration pneumonia. Patient has large right mca cerebral edema. Patient has detiorated and developed hypoxia andshe got intubated and trasnferred to icu, patient is sedated and intubated. patient is sedated on ventilator. --Chart reviewd, spoke to nursing staff, no new symptoms. She has trach and peg tube placement. No meaningful response. She has minimal reposne to pain. and wbc is going up NEUROLOGICAL EXAMINATION Patient is comatosed, no response to pain or verbal stimuli( off sedation gag reflex corneal reflex is present not breathing above vent neck is supple pupils is small sluggsihly reactive gag and corneal reflex is present bp is maintained - ct head showed large right mca cerebral edema with minimal hemorrhagic transformation repeat ct head done on january 28 Assessment/Plan 1. Large right mca acute stroke also old left mca stroke, now bi hemispheric stroke - continue supportive care - prongosis is guarded. going to CT 2. Respiratory failure secondary to aspiration pneumonia( now trach and peg tube placed stable going to [facility] today Pippa sol so much Norman Plascencia MD
== END 2020-03-05 15:41 | DRG 3 ==
LOC: JER 19:24 → JERBED 01-15 01:38 → JICU 01-15 02:28 → J4S 01-17 19:36 → JICU 01-26 20:12 → J5S 02-02 18:21 → JICU 02-03 08:05 → J6S 02-09 08:40 → JICU 02-20 10:58 → J5S 02-29 16:22
PROVIDERS: ADMIT Internal Medicine Pulmonary Disease; ATTEND Internal Medicine
PROC: 5A1D70Z Performance of Urinary Filtration, Intermittent, Less than 6 Hours Per Day (ICD-10-PCS; 2020-01-15)
PROC: 0DH67UZ Insertion of Feeding Device into Stomach, Via Natural or Artificial Opening (ICD-10-PCS; principal; 2020-01-16)
PROC: 5A1955Z Respiratory Ventilation, Greater than 96 Consecutive Hours (ICD-10-PCS; 2020-01-26)
PROC: 0BH17EZ Insertion of Endotracheal Airway into Trachea, Via Natural or Artificial Opening (ICD-10-PCS; 2020-01-26)
PROC: 06HN33Z Insertion of Infusion Device into Left Femoral Vein, Percutaneous Approach (ICD-10-PCS; 2020-01-27)
PROC: B54CZZA Ultrasonography of Left Lower Extremity Veins, Guidance (ICD-10-PCS; 2020-01-27)
PROC: 0W3P3ZZ Control Bleeding in Gastrointestinal Tract, Percutaneous Approach (ICD-10-PCS; 2020-01-31)
PROC: 0DH63UZ Insertion of Feeding Device into Stomach, Percutaneous Approach (ICD-10-PCS; 2020-01-31)
PROC: 3E0G76Z Introduction of Nutritional Substance into Upper GI, Via Natural or Artificial Opening (ICD-10-PCS; 2020-01-31)
PROC: 30233N1 Transfusion of Nonautologous Red Blood Cells into Peripheral Vein, Percutaneous Approach (ICD-10-PCS; 2020-02-02)
PROC: 05HN33Z Insertion of Infusion Device into Left Internal Jugular Vein, Percutaneous Approach (ICD-10-PCS; 2020-02-02)
PROC: B544ZZA Ultrasonography of Left Jugular Veins, Guidance (ICD-10-PCS; 2020-02-02)
PROC: 0BJ08ZZ Inspection of Tracheobronchial Tree, Via Natural or Artificial Opening Endoscopic (ICD-10-PCS; 2020-02-02)
PROC: 0B110F4 Bypass Trachea to Cutaneous with Tracheostomy Device, Open Approach (ICD-10-PCS; 2020-02-28)
PROC: 5A1D70Z Performance of Urinary Filtration, Intermittent, Less than 6 Hours Per Day (ICD-10-PCS; 2020-03-04)
DX: I63.9 Cerebral infarction, unspecified (principal); L89.153 Pressure ulcer of sacral region, stage 3; N18.6 End stage renal disease; G93.6 Cerebral edema; J69.0 Pneumonitis due to inhalation of food and vomit; J96.01 Acute respiratory failure with hypoxia; I61.9 Nontraumatic intracerebral hemorrhage, unspecified; A41.89 Other specified sepsis; I12.0 Hypertensive chronic kidney disease with stage 5 chronic kidney disease or end stage renal disease; R64 Cachexia; D62 Acute posthemorrhagic anemia; E87.0 Hyperosmolality and hypernatremia; K91.840 Postprocedural hemorrhage of a digestive system organ or structure following a digestive system procedure; J98.11 Atelectasis; T17.490A Other foreign object in trachea causing asphyxiation, initial encounter; E87.3 Alkalosis; I24.8 Other forms of acute ischemic heart disease; E11.22 Type 2 diabetes mellitus with diabetic chronic kidney disease; Z99.2 Dependence on renal dialysis; K21.9 Gastro-esophageal reflux disease without esophagitis; E78.5 Hyperlipidemia, unspecified; F03.90 Unspecified dementia, unspecified severity, without behavioral disturbance, psychotic disturbance, mood disturbance, and anxiety; I69.320 Aphasia following cerebral infarction; D72.829 Elevated white blood cell count, unspecified; R50.9 Fever, unspecified; R00.0 Tachycardia, unspecified; I44.7 Left bundle-branch block, unspecified; E87.6 Hypokalemia; Y83.8 Other surgical procedures as the cause of abnormal reaction of the patient, or of later complication, without mention of misadventure at the time of the procedure; I27.20 Pulmonary hypertension, unspecified; I34.0 Nonrheumatic mitral (valve) insufficiency; R41.82 Altered mental status, unspecified; G83.89 Other specified paralytic syndromes; E11.649 Type 2 diabetes mellitus with hypoglycemia without coma; B96.4 Proteus (mirabilis) (morganii) as the cause of diseases classified elsewhere; E87.70 Fluid overload, unspecified; K52.89 Other specified noninfective gastroenteritis and colitis; L89.312 Pressure ulcer of right buttock, stage 2; Z66 Do not resuscitate
CPT/HCPCS: 31500; 36415; 36430; 36511; 36600; 49440; 70450-TC; 71045-TC-FY; 72125-TC; 74018-TC-FY; 74160-TC; 74176-TC; 76705-TC; 80048; 80053; 80061; 80076; 82010; 82272; 82550; 82728; 82803; 82962; 83010; 83540; 83550; 83605; 83615; 83721; 83735; 84100; 84443; 84484; 85025; 85027; 85379; 85384; 85610; 85730; 86803; 86850; 86880; 86900; 86901; 86922; 87040; 87070; 87186; 87205; 87324; 87340; 87449; 93005; 93010; 93306-TC; 94002; 94640; 95816; 97161-GP; 99285-25; G0480; J0131; P9038; P9047; P9058; Q5106; Q9967; U0003

== ENCOUNTER 2020-03-07 12:54 | Inpatient (IN) | payer OTHER ==
--- NOTE | 2020-03-07 13:23 | PDOC ---
History of Present Illness - General Chief Complaint: G Tube Problem Stated Complaint: PEG TUBE PROBLEM Time Seen by Provider: 03/07/20 13:17 - History of Present Illness Initial Comments: 03/07/20 13:28 74F with PMH of CVA presents to the ED via EMS from [facility] for a dislodged PEG tube. On arrival pt was tachycardic at 120 and borderline febrile at 100.3. Pt is unresponsive at baseline 2/2 CVA, unable to obtain history. She was just discharged recently after long hospital stay for CVA. Her RN, Ema, from [facility] stated that the PEG tube was dislodged around 10:00 today. PMH: as in HPI SH: see below Meds: see med list Allergies: propofol ROS GENERAL/CONSTITUTIONAL: No fever or chills. No weakness. HEENT: No change in vision. No ear pain or discharge. No sore throat. CARDIOVASCULAR: No chest pain or shortness of breath RESPIRATORY: No cough, wheezing, or hemoptysis. GASTROINTESTINAL: No nausea, vomiting, diarrhea or constipation. GENITOURINARY: No dysuria, frequency, or change in urination. MUSCULOSKELETAL: No joint or muscle swelling or pain. No neck or back pain. SKIN: No rash NEUROLOGIC: No headache, vertigo, loss of consciousness, or change in strength/sensation. ENDOCRINE: No increased thirst. No abnormal weight change HEMATOLOGIC/LYMPHATIC: No anemia, easy bleeding, or history of blood clots. ALLERGIC/IMMUNOLOGIC: No hives or skin allergy. PE GENERAL: Unresponsive HEAD: No signs of trauma, normocephalic, atraumatic EYES: conjunctiva clear ENT: Auricles normal inspection, nares patent, oropharynx clear without exudates. Moist mucosa NECK: Normal ROM, supple, no LAD, JVD, or masses HEART: Regular rate and rhythm, normal S1 and S2, no murmurs, rubs or gallops, peripheral pulses normal and equal bilaterally LUNGS: No distress, diffuse rales in all lung dubon ABDOMEN: Soft, nontender. No guarding, no rebound. No masses EXTREMITIES: Normal inspection. No clubbing or cyanosis. NEUROLOGICAL: Unable to assess SKIN: Warm, Dry, normal turgor, no rashes or lesions noted Assessment and Plan 1. Sepsis workup Navin Sevilla, PGY1 Emergency Medicine 03/07/20 18:32 Past History - Medical History Allergies/Adverse Reactions: Allergies Allergy/AdvReac Type Severity Reaction Status Date / Time propofol AdvReac Verified 07/29/16 15:05 Home Medications: Ambulatory Orders Albuterol Sulfate Inhaler - [Ventolin HFA Inhaler -] 2 puff IH Q6H 01/15/20 Acetaminophen 650 mg GT TID 03/07/20 Prednisone 10 mg GT DAILY 03/07/20 predniSONE [Deltasone -] 20 mg GT DAILY 03/07/20 Anemia: No Asthma: No Cancer: No Cardiac Disorders: Yes (AL) CVA: Yes COPD: No CHF: No Dementia: Yes Diabetes: Yes Dialysis: Yes GI Disorders: Yes (GERD) Disorders: No HTN: Yes Hypercholesterolemia: No Liver Disease: No Seizures: No Thyroid Disease: No - Surgical History Abdominal Surgery: No Appendectomy: No Cardiac Surgery: No Cholecystectomy: No Lung Surgery: No Neurologic Surgery: No Orthopedic Surgery: No - Reproductive History Is Patient Now?: No - Immunization History Immunization Up to Date: Yes - Psycho-Social/Smoking History Smoking Status: No Smoking History: Smoker current status UNK Have you smoked in the past 12 months: No Number of Cigarettes Smoked Daily: 0 Information on smoking cessation initiated: No - Substance Abuse Hx (Audit-C & DAST Scrn) How often the patient has a drink containing alcohol: Never Score: In Men: 4 or > Positive; In Women: 3 or > Positive: 0 Screen Result (Pos requires Nsg. Audit-10AR): Negative In the last yr the pt used illegal drug/Rx for NonMed reason: No Score: Yes response is considered Positive: 0 Screen Result (Positive result requires Nsg. DAST-10): Negative *Physical Exam - Vital Signs Last Vital Signs Temp Pulse Resp BP Pulse Ox 100.3 F H 120 H 14 115/55 L 100 03/07/20 13:10 03/07/20 13:10 03/07/20 13:12 03/07/20 13:10 03/07/20 13:12 ED Treatment Course - LABORATORY CBC & Chemistry Diagram: 03/07/20 15:03 03/07/20 15:03 Medical Decision Making - Medical Decision Making 03/07/20 13:44 74F with PMH of CVA presents to the ED via EMS from [facility] for a dislodged PEG tube. On arrival pt was tachycardic at 120 and borderline febrile at 100.3. Unresponsive at baseline 2/2 CVA. Her RN, Ema, from [facility] stated that the PEG tube was dislodged around 10:00 today. PEG placed 5 weeks ago. Diffuse rales on lung auscultation. CXR: partial resolution of lung masses compared to previous study on 03/02/20 with some atelectasis and infiltrates at the bases bilaterally. 03/07/20 18:05 - 16 fr G tube replaced w/o resistance - abdominal xray with gastrograffin done - G tube placement confirmed at gastric fundus Labs notable for: - WBC 32.1, consistent with previous labs - PTT 15.10, INR 1.28 - VBG unremarkable - K 3.1, lactate 2.6 - BUN and creatinine elevated, consistent with previous labs - glucose 666 - troponin 4.5, elevation consistent with previous labs - Given 6mg SQ insulin - started on vanc and zosyn Patient meets SIRS criteria for severe sepsis. -Signed out to night team Discharge - Discharge Information Problems reviewed: Yes Clinical Impression/Diagnosis: Sepsis Qualifiers: Sepsis type: sepsis due to unspecified organism Sepsis acute organ dysfunction status: unspecified Qualified Code(s): A41.9 - Sepsis, unspecified organism - Admission Yes - Follow up/Referral - Patient Discharge Instructions - Post Discharge Activity
[2020-03-07] MEDS ORDERED: ACETAMINOPHEN 1000 MG/100 ML VIAL (NON FORMULARY) IVPB ONE (13:25)
--- NOTE | 2020-03-07 15:25 | EKG ---
Test Reason : Blood Pressure : / mmHG Vent. Rate : 118 BPM Atrial Rate : 118 BPM P-R Int : 148 ms QRS Dur : 134 ms QT Int : 388 ms P-R-T Axes : 044 027 175 degrees QTc Int : 543 ms SINUS TACHYCARDIA LEFT BUNDLE BRANCH BLOCK ABNORMAL ECG WHEN COMPARED WITH ECG OF 02-MAR-2020 06:57, NO SIGNIFICANT CHANGE WAS FOUND Confirmed by JAYLAN SMALL MD ([id number]) on 03/07/2020 3:25:38 PM Referred By: Confirmed By:JAYLAN SMALL MD
[2020-03-07 16:05] LABS: VENOUS PCO2 40.3 mmHg (38-52); VENOUS PH 7.338 (7.310-7.410)
[2020-03-07 16:06] LABS: BASO % 0.1 % (0-2.0); EOS % 0.2 % (0-4.5); HEMATOCRIT 27.5 % (32.4-45.2); HEMOGLOBIN 8.4 GM/dL (10.7-15.3); LYMPH % 1.4 % (8-40); MCH 29.6 pg (25.7-33.7); MCHC 30.5 g/dl (32.0-36.0); MEAN PLT VOLUME 10.7 fl (7.5-11.1); MONO % 2.7 % (3.8-10.2); NEUT % 95.6 % (42.8-82.8); PLATELET COUNT 242 K/MM3 (134-434); RBC 2.84 M/mm3 (3.60-5.2); RDW 20.7 % (11.6-15.6)
[2020-03-07] MEDS ORDERED: ACETAMINOPHEN INJECTION 100 ML IVPB ONE (16:10)
[2020-03-07 16:12] LABS: INR 1.28 (0.83-1.09); PROTHROMBIN TIME (PATIENT) 15.1 SEC (9.7-13.0)
[2020-03-07 16:14] LABS: ACTIVATED PTT 28.9 SECONDS (25.2-36.5)
[2020-03-07 16:34] LABS: ALBUMIN 1.4 g/dl (3.4-5.0); BILIRUBIN,TOTAL 0.5 mg/dL (0.2-1); BLOOD UREA NITROGEN 58.2 mg/dL (7-18); CALCIUM 7.7 mg/dL (8.5-10.1); CREATININE 2.4 mg/dL (0.55-1.3); POTASSIUM 3.1 mmol/L (3.5-5.1); TOT PROT 5.6 g/dl (6.4-8.2)
[2020-03-07] MEDS ORDERED: VANCOMYCIN 1 GM in D5W (PRE-DOCKED) 1,000 MG/250 ML IVPB ONE (16:38)
[2020-03-07] MEDS ORDERED: PIPERACILLIN/TAZOB 4.5 GM 4.5 GM in DEXTROSE 5%-WATER 100 ML IVPB ONE (16:40)
[2020-03-07] MEDS ORDERED: ASPIRIN SUPPOSITORY 600 MG SUPP.RECT PR ONE (16:42)
[2020-03-07] MEDS ORDERED: VANCOMYCIN 1 GRAM (PRE-DOCKED) 1,000 MG/250 ML BAG IVPB ONE (16:44)
[2020-03-07] MEDS ORDERED: PIPERACILLIN/TAZOB 4.5 GM 4.5 GM/100 ML BAG IVPB ONE (16:44)
[2020-03-07] MEDS ORDERED: ASPIRIN 300 MG SUPP.RECT RC ONE (16:46)
[2020-03-07] MEDS ORDERED: SODIUM CHLORIDE 0.9% 500 ML INFUS.BAG IV ONE (16:46)
[2020-03-07] MEDS ORDERED: INSULIN REGULAR HUMAN 100 UNITS/ML *VIAL SQ ONE (16:55)
[2020-03-07 17:01] LABS: ANISOCYTOSIS 2+; MACROCYTOSIS 1+; PLATELET ESTIMATE NORMAL
[2020-03-07] MEDS ORDERED: POTASSIUM CHLORIDE ORAL LIQUID 20 MEQ/15 ML GT ONE (17:06)
[2020-03-07] MEDS ORDERED: MAGNESIUM 1GM/D5W - 1 GM/100 ML IVPB IVPB ONE (17:07)
--- NOTE | 2020-03-07 18:02 | CONSULT ---
Consult Consult Specialty:: Nephrology Reason for Consultation:: ESRD - History of Present Illness Chief Complaint: sent in for dislodged peg History of Present Illness: Ptis a 74 year old female with pmhx of esrd, anemia, cva, resp failure with trache and peg who was sent in for dislodged peg, fever and tachycardia. She is lethargic. She last hd HD yesterday. She is not responsive. We were called to evaluate her as she has ESRD. She was recently discharged after a prolonged hospital stay. - History Source History Provided By: Medical Record - Past Medical History [employer]: Yes: CVA, Dementia Cardio/Vascular: Yes: HTN, Murmur, Pulmonary Hypertension Pulmonary: Yes: Previously Intubated Renal/: Yes: Renal Failure, Hemodialysis. No: Renal Inusuff, Cancer, Hematuria, Neurogenic Bladder, Renal Calculi, UTI, Other ...: No - Past Surgical History Past Surgical History: Yes: AV Fistula/Graft. No: None, AAA Repair, AICD, Ampu tation, Appendectomy, Arthrosocopy, Bariatric Surgery, Breast Biopsy, Bypass, CABG, Carotid Endarterectomy, Cataract Removal, Cholecystectomy, Colectomy, Colonoscopy, Colostomy, Craniotomy, , Cystectomy, Hernia Repair, Hysterectomy, Ileal Conduit, Ileosotomy, Joint Replacement, Kidney Transplant, Laminectomy, Liver Transplant, Mastectomy, Nephrectomy, Oopherectomy, Permanent Pacemaker, Splenectomy, Stent, Thoracotomy, Tonsillectomy, Tubal Ligation, Upper Endoscopy, Valve Replacement, Vein Stripping/Ligation - Alcohol/Substance Use Hx Alcohol Use: No - Smoking History Smoking history: Smoker current status UNK Have you smoked in the past 12 months: No Aproximately how many cigarettes per day: 0 - Social History Usual Living Arrangement: Correction Home Medications - Allergies Allergies/Adverse Reactions: Allergies Allergy/AdvReac Type Severity Reaction Status Date / Time propofol AdvReac Verified 07/29/16 15:05 - Home Medications Home Medications: Ambulatory Orders Albuterol Sulfate Inhaler - [Ventolin HFA Inhaler -] 2 puff IH Q6H 01/15/20 Acetaminophen 650 mg GT TID 03/07/20 Prednisone 10 mg GT DAILY 03/07/20 predniSONE [Deltasone -] 20 mg GT DAILY 03/07/20 Family Medical History Family History: Unable to Obtain Review of Systems Unable to obtain ROS, reason: lethargy Physical Exam Vital Signs: Vital Signs Temperature 100.3 F H 03/07/20 13:10 Pulse Rate 105 H 03/07/20 16:24 Respiratory Rate 24 H 03/07/20 16:24 Blood Pressure 110/65 03/07/20 16:24 O2 Sat by Pulse Oximetry (%) 100 03/07/20 16:24 Constitutional: Yes: Calm, Cachectic Neck: Yes: Other (trache) Cardiovascular: Yes: Tachycardia, S1, S2 Respiratory: Yes: Mechanically Ventilated Gastrointestinal: Yes: Soft, Other (peg dislodged) Renal/: Yes: Incontinence Musculoskeletal: Yes: Muscle Weakness Edema: No Neurological: Yes: Lethargy Labs: CBC, BMP 03/07/20 15:03 03/07/20 15:03 Problem List - Problems (1) Altered mental status Code(s): R41.82 - ALTERED MENTAL STATUS, UNSPECIFIED (2) ESRD on dialysis Code(s): N18.6 - END STAGE RENAL DISEASE; Z99.2 - DEPENDENCE ON RENAL DIALYSIS Assessment/Plan Impression 1. esrd 2. right temporoparietal infarct 3. CVA 4. hx aspiration pneumonia 5. htn 6. hld 7. chronic resp failure 8. sepsis 9. dislodged peg Plan - send cultures - replace lytes - will evaluate for HD tomorrow if more stable - abx per medical team - GI eval for peg replacement - discuss GOC with family
[2020-03-07] MEDS ORDERED: SODIUM CHLORIDE 250 ML IV PRN (18:03)
--- NOTE | 2020-03-07 19:23 | PDOC ---
*Physical Exam - Vital Signs Last Vital Signs Temp Pulse Resp BP Pulse Ox 100.3 F H 105 H 24 H 110/65 100 03/07/20 13:10 03/07/20 16:24 03/07/20 16:24 03/07/20 16:24 03/07/20 16:24 ED Treatment Course - LABORATORY CBC & Chemistry Diagram: 03/07/20 15:03 03/07/20 15:03 - ADDITIONAL ORDERS Additional order review: Laboratory Results 03/07/20 03/07/20 03/07/20 15:03 15:03 15:03 PT with INR INR PTT (Actin FS) VBG pH 7.338 POC VBG pCO2 40.3 POC VBG pO2 27.4 L VBG HCO3 21.2 L VBG O2 Sat (Rayray) No Result Required. VBG Base Excess No Result Required. Sodium 134 L Potassium 3.1 L Chloride 97 L Carbon Dioxide 22 Anion Gap 15 BUN 58.2 H Creatinine 2.4 H Est GFR (CKD-EPI)AfAm 21.99 Est GFR (CKD-EPI)NonAf 18.97 Random Glucose 666 H* Lactic Acid 2.6 H* Calcium 7.7 L Total Bilirubin 0.5 AST 38 H ALT 18 Alkaline Phosphatase 376 H Troponin I 4.53 H* Total Protein 5.6 L Albumin 1.4 L 03/07/20 15:03 PT with INR 15.10 H INR 1.28 H PTT (Actin FS) 28.9 VBG pH POC VBG pCO2 POC VBG pO2 VBG HCO3 VBG O2 Sat (Rayray) VBG Base Excess Sodium Potassium Chloride Carbon Dioxide Anion Gap BUN Creatinine Est GFR (CKD-EPI)AfAm Est GFR (CKD-EPI)NonAf Random Glucose Lactic Acid Calcium Total Bilirubin AST ALT Alkaline Phosphatase Troponin I Total Protein Albumin 03/07/20 15:03 RBC 2.84 L MCV 97.0 H MCHC 30.5 L RDW 20.7 H MPV 10.7 Neutrophils % 95.6 H Lymphocytes % 1.4 L D Monocytes % 2.7 L Eosinophils % 0.2 D Basophils % 0.1 - Medications Given in the ED: ED Medications Discontinued Medications Generic Name Dose Route Start Last Admin Trade Name Freq PRN Reason Stop Dose Admin Acetaminophen 1,000 mg 03/07/20 13:25 03/07/20 16:22 Ofirmev Injection - IVPB 03/07/20 13:26 1,000 mg ONCE ONE Administration Aspirin 600 mg 03/07/20 16:42 03/07/20 17:16 Asa Suppository - [place] 03/07/20 16:43 600 mg ONCE ONE Administration Piperacillin Sod/Tazobactam 100 mls @ 200 mls/hr 03/07/20 16:40 03/07/20 19:06 Sod 4.5 gm/ Dextrose IVPB 03/07/20 17:09 200 mls/hr ONCE ONE Administration Protocol Magnesium Sulfate/Dextrose 1 100 mls @ 100 mls/hr 03/07/20 17:01 03/07/20 17:16 gm/ Miscellaneous IVPB 03/07/20 18:00 100 mls/hr ONCE ONE Administration Insulin Human Regular 6 units 03/07/20 16:55 03/07/20 17:04 Novolin R Vial *For Ivpush Or Iv Drip Only* SQ 03/07/20 16:56 6 units ONCE ONE Administration Sodium Chloride 1,000 ml 03/07/20 16:46 03/07/20 17:05 Normal Saline - IV 03/07/20 16:47 1,000 ml ONCE ONE Administration Vancomycin HCl 1,000 mg 03/07/20 16:38 03/07/20 17:53 Vancomycin (Pre-Docked) IVPB 03/07/20 16:39 1,000 mg ONCE ONE Administration Protocol Medical Decision Making - Medical Decision Making 03/07/20 19:22 74F with PMH of CVA (01/13-03/06) on trache, ESRD on dialysis presents to the ED via EMS from [facility] for a dislodged PEG tube. On arrival pt was tachycardic at 120 and borderline febrile at 100.3 - peg tube replaced, confirmed w xr - sepsis - hyperglycemia, not DKA (bicarb over 18) - elevated trop 4.5 likely 2/2 demand, had recent CVA, evaluated by Efrem ramirez 2d ago given vanc, zosyn, 6u insulin, 0.5L fluids, tylenol, aspirin, mg, kcl Dr Efrem ramirez and Alec notified No PNA on XR No available tele bed for chronic trache pts per practical nursing faculty Spoke to ICU, will evaluate Admitted ICU Discharge - Discharge Information Problems reviewed: Yes Clinical Impression/Diagnosis: Hyperglycemia Sepsis Qualifiers: Sepsis type: sepsis due to unspecified organism Sepsis acute organ dysfunction status: unspecified Qualified Code(s): A41.9 - Sepsis, unspecified organism Condition: Guarded - Follow up/Referral - Patient Discharge Instructions - Post Discharge Activity
[2020-03-07] MEDS ORDERED: POTASSIUM CHLORIDE ORAL LIQUID 20 MEQ/15 ML ONE (19:32)
--- NOTE | 2020-03-07 19:32 | CON.CARD ---
Consult Consult Specialty:: Cardiology - History of Present Illness History of Present Illness: The patient is a 74 year old female with a significant past medical history of CVA, ESRD (on HD, normal session yesterday) who presents to the emergency department, from [facility], for evaluation of a dislodged PEG tube 3.5 hours ago, per [facility]. Upon arrival of EMS, it was discovered the patient is tachy cardic and hypotensive, currently 96/81. The patient is nonverbal at baseline. The patient was admitted 01/13-03/05 for unresponsiveness for two days and was found to have a large, progressing MCA stroke. - History Source History Provided By: Medical Record - Past Medical History LE[employer]EL[employer]: Yes: CVA, Dementia Cardio/Vascular: Yes: HTN, Murmur, Pulmonary Hypertension Pulmonary: Yes: Previously Intubated Renal/: Yes: Renal Failure, Hemodialysis. No: Renal Inusuff, Cancer, Hematuria, Neurogenic Bladder, Renal Calculi, UTI, Other ...: No - Past Surgical History Past Surgical History: Yes: AV Fistula/Graft. No: None, AAA Repair, AICD, Amputation, Appendectomy, Arthrosocopy, Bariatric Surgery, Breast Biopsy, Bypass, CABG, Carotid Endarterectomy, Cataract Removal, Cholecystectomy, Colectomy, Colonoscopy, Colostomy, Craniotomy, , Cystectomy, Hernia Repair, Hysterectomy, Ileal Conduit, Ileosotomy, Joint Replacement, Kidney Transplant, Laminectomy, Liver Transplant, Mastectomy, Nephrectomy, Oopherectomy, Permanent Pacemaker, Splenectomy, Stent, Thoracotomy, Tonsil lectomy, Tubal Ligation, Upper Endoscopy, Valve Replacement, Vein Stripping/Ligation - Alcohol/Substance Use Hx Alcohol Use: No - Smoking History Smoking history: Smoker current status UNK Have you smoked in the past 12 months: No Aproximately how many cigarettes per day: 0 - Social History Usual Living Arrangement: Assisted Home Medications - Allergies Allergies/Adverse Reactions: Allergies Allergy/AdvReac Type Severity Reaction Status Date / Time propofol AdvReac Verified 07/29/16 15:05 - Home Medications Home Medications: Ambulatory Orders Albuterol Sulfate Inhaler - [Ventolin HFA Inhaler -] 2 puff IH Q6H 01/15/20 Acetaminophen 650 mg GT TID 03/07/20 Prednisone 10 mg GT DAILY 03/07/20 predniSONE [Deltasone -] 20 mg GT DAILY 03/07/20 Family Medical History Family History: Unable to Obtain Review of Systems Unable to obtain ROS, reason: non-verbal Vital Signs: Vital Signs Temperature 100.3 F H 03/07/20 13:10 Pulse Rate 105 H 03/07/20 16:24 Respiratory Rate 24 H 03/07/20 16:24 Blood Pressure 110/65 03/07/20 16:24 O2 Sat by Pulse Oximetry (%) 100 03/07/20 16:24 Constitutional: Yes: Well Nourished, No Distress, Calm Eyes: Yes: WNL, Conjunctiva Clear, EOM Intact HENT: Yes: WNL, Atraumatic, Normocephalic Neck: Yes: WNL, Supple, Trachea Midline Respiratory: Yes: Intubated (S/P TRACHEOSTOMY), Mechanically Ventilated Gastrointestinal: Yes: WNL, Normal Bowel Sounds Renal/: Yes: WNL Cardiovascular: Yes: WNL, Regular Rate and Rhythm Musculoskeletal: Yes: WNL Extremities: Yes: WNL Integumentary: Yes: WNL - Other Data Labs, Other Data: CBC, BMP 03/07/20 15:03 03/07/20 15:03 INR, PTT INR 1.28 (0.83-1.09) H 03/07/20 15:03 Troponin, BNP 03/07/20 15:03 Troponin I 4.53 H* Troponin, BNP 03/07/20 15:03 Troponin I 4.53 H* Imaging - Results Chest X-ray: Image Reviewed (s/p tracheostomy PNA) EKG: Image Reviewed (s tachy LBBB) Problem List - Problems (1) Sepsis Code(s): A41.9 - SEPSIS, UNSPECIFIED ORGANISM Qualifiers: Sepsis type: sepsis due to unspecified organism Sepsis acute organ dysfunction status: unspecified Qualified Code(s): A41.9 - Sepsis, unspecified organism (2) Altered mental status Code(s): R41.82 - ALTERED MENTAL STATUS, UNSPECIFIED (3) Anemia Code(s): D64.9 - ANEMIA, UNSPECIFIED (4) Clotted dialysis access Code(s): T82.49XA - OTH COMPLICATION OF VASCULAR DIALYSIS CATHETER, INIT ENCNTR (5) Diabetes Code(s): E11.9 - TYPE 2 DIABETES MELLITUS WITHOUT COMPLICATIONS (6) ESRD on dialysis Code(s): N18.6 - END STAGE RENAL DISEASE; Z99.2 - DEPENDENCE ON RENAL DIALYSIS (7) Hypertension Code(s): I10 - ESSENTIAL (PRIMARY) HYPERTENSION (8) Lactic acidosis Code(s): E87.2 - ACIDOSIS (9) Pneumonia, aspiration Code(s): J69.0 - PNEUMONITIS DUE TO INHALATION OF FOOD AND VOMIT (10) SOB (shortness of breath) Code(s): R06.02 - SHORTNESS OF BREATH (11) Stroke Code(s): I63.9 - CEREBRAL INFARCTION, UNSPECIFIED Assessment/Plan The patient is a 74 year old female with a significant past medical history of CVA, ESRD (on HD, normal session yesterday) who presents to the emergency department, from [facility], for evaluation of a dislodged PEG tube 3.5 hours ago, per [facility]. Upon arrival of EMS, it was discovered the patient is tachycardic and hypotensive, currently 96/81. The patient is nonverbal at [facility]. The patient was admitted 01/13-03/05 for unresponsiveness for two days and was found to have a large, progressing MCA stroke.Positive TNIs Plan; ABX DVT PLX Ventilatory support cc time spent 70 min
[2020-03-07] MEDS ORDERED: SODIUM CHLORIDE 250 ML IV STA (22:35)
--- NOTE | 2020-03-07 22:59 | CONSULT ---
Consultation: REQUESTING PROVIDER: Dr. Estevez CONSULT REQUEST: We have been asked to medically evaluate this patient for ICU admission. HISTORY OF PRESENT ILLNESS: The patient is a 74 year old female with a significant past medical history of CVA, ESRD on HD (last session yesterday). Presented to the ED from [facility] for evaluation of a dislodged PEG tube. Upon arrival of EMS, patient found to be tachycardic, hypotensive and febrile. Patient is currently on ventilator and has trach. She is nonverbal at baseline. Was recently discharged from [facility] on 03/05/20 s/p large, progressing MCA stroke. REVIEW OF SYSTEMS: Patient nonverbal, unable to assess CONSTITUTIONAL: Absent: fever, chills, diaphoresis, generalized weakness, malaise, loss of appetite, weight change HEENT: Absent: rhinorrhea, nasal congestion, throat pain, throat swelling, difficulty swallowing, mouth swelling, ear pain, eye pain, visual changes CARDIOVASCULAR: Absent: chest pain, syncope, palpitations, irregular heart rate, lightheadedness, peripheral edema RESPIRATORY: Absent: cough, shortness of breath, dyspnea with exertion, orthopnea, wheezing, stridor, hemoptysis GASTROINTESTINAL: Absent: abdominal pain, abdominal distension, nausea, vomiting, diarrhea, constipation, melena, hematochezia GENITOURINARY: Absent: dysuria, frequency, urgency, hesitancy, hematuria, flank pain, genital pain MUSCULOSKELETAL: Absent: myalgia, arthralgia, joint swelling, back pain, neck pain SKIN: Absent: rash, itching, pallor HEMATOLOGIC/IMMUNOLOGIC: Absent: easy bleeding, easy bruising, lymphadenopathy, frequent infections ENDOCRINE: Absent: unexplained weight gain, unexplained weight loss, heat intolerance, cold intolerance NEUROLOGIC: Absent: headache, focal weakness or paresthesias, dizziness, unsteady gait, seizure, mental status changes, bladder or bowel incontinence PSYCHIATRIC: Absent: anxiety, depression, suicidal or homicidal ideation, hallucinations. PHYSICAL EXAMINATION Vital Signs Temp Pulse Resp BP Pulse Ox 100.3 F H 105 H 24 H 110/65 100 03/07/20 13:10 03/07/20 16:24 03/07/20 20:34 03/07/20 16:24 03/07/20 20:34 GENERAL: Awake, alert, non verba HEAD: Normal with no signs of trauma. EYES: PERRL, does not track, moves eyes spontaneously ENT: Moist mucous membranes. NECK: Trach in place LUNGS: Venti breath sounds BL HEART: tachycardic, regular rhythm ABDOMEN: Soft, nontender, not distended MUSCULOSKELETAL: No bony deformities or tenderness. Moves limbs spontaneously UPPER EXTREMITIES: warm, well-perfused. +2 pitting edema in BL hands LOWER EXTREMITIES: warm, well-perfused. Mild peripheral edema. NEUROLOGICAL: responds to tactile stimuli, does not follow commands, non verbal SKIN: Warm, dry, no rashes or lesions noted. Laboratory Results - last 24 hr 03/07/20 03/07/20 03/07/20 15:03 15:03 15:03 WBC 32.0 H* RBC 2.84 L Hgb 8.4 L Hct 27.5 L MCV 97.0 H MCH 29.6 MCHC 30.5 L RDW 20.7 H Plt Count 242 D MPV 10.7 Absolute Neuts (auto) 30.6 H Neutrophils % 95.6 H Neutrophils % (Manual) 97.0 H Band Neutrophils % 0.0 Lymphocytes % 1.4 L D Lymphocytes % (Manual) 2.0 L Monocytes % 2.7 L Monocytes % (Manual) 1 L Eosinophils % 0.2 D Eosinophils % (Manual) 0.0 Basophils % 0.1 Basophils % (Manual) 0.0 Myelocytes % (Man) 0 Promyelocytes % (Man) 0 Blast Cells % (Manual) 0 Nucleated RBC % 0 Metamyelocytes 0 Hypochromia 2+ Platelet Estimate Normal Polychromasia 0 Poikilocytosis 0 Anisocytosis 2+ Microcytosis 2+ Macrocytosis 1+ PT with INR 15.10 H INR 1.28 H PTT (Actin FS) 28.9 VBG pH 7.338 POC VBG pCO2 40.3 POC VBG pO2 27.4 L VBG HCO3 21.2 L VBG O2 Sat (Rayray) No Result Required. VBG Base Excess No Result Required. Sodium Potassium Chloride Carbon Dioxide Anion Gap BUN Creatinine Est GFR (CKD-EPI)AfAm Est GFR (CKD-EPI)NonAf POC Glucometer Random Glucose Lactic Acid Calcium Total Bilirubin AST ALT Alkaline Phosphatase Troponin I Total Protein Albumin 03/07/20 03/07/20 03/07/20 15:03 15:03 19:37 WBC RBC Hgb Hct MCV MCH MCHC RDW Plt Count MPV Absolute Neuts (auto) Neutrophils % Neutrophils % (Manual) Band Neutrophils % Lymphocytes % Lymphocytes % (Manual) Monocytes % Monocytes % (Manual) Eosinophils % Eosinophils % (Manual) Basophils % Basophils % (Manual) Myelocytes % (Man) Promyelocytes % (Man) Blast Cells % (Manual) Nucleated RBC % Metamyelocytes Hypochromia Platelet Estimate Polychromasia Poikilocytosis Anisocytosis Microcytosis Macrocytosis PT with INR INR PTT (Actin FS) VBG pH POC VBG pCO2 POC VBG pO2 VBG HCO3 VBG O2 Sat (Rayray) VBG Base Excess Sodium 134 L Potassium 3.1 L Chloride 97 L Carbon Dioxide 22 Anion Gap 15 BUN 58.2 H Creatinine 2.4 H Est GFR (CKD-EPI)AfAm 21.99 Est GFR (CKD-EPI)NonAf 18.97 POC Glucometer 513 Random Glucose 666 H* Lactic Acid 2.6 H* Calcium 7.7 L Total Bilirubin 0.5 AST 38 H ALT 18 Alkaline Phosphatase 376 H Troponin I 4.53 H* Total Protein 5.6 L Albumin 1.4 L Active Medications Generic Name Dose Route Start Last Admin Trade Name Freq PRN Reason Stop Dose Admin Sodium Chloride 250 mls @ 3,000 mls/hr 03/07/20 18:03 Normal Saline - IV 03/08/20 18:03 PRN PRN Hypotension during Dialysis ASSESSMENT/PLAN: Patient is a 74 yo Female with PMHx of MCA stroke 01/14/20 (has trach on vent), ESRD on HD (last session yesterday), . Presented to the ED from [facility] for dislodged PEG tube. In ED was found to be tachycardic, hypotensive and febrile. Admitted to ICU for sepsis. Neuro: - Hx MCA stroke - nonverbal - discuss GOC with family Pulm - Trach on vent - Keep saturation > 93% - possible persisting PNA from last admission - CXR RLL infiltrate - continue vanc/zosyn for pseudomonas and MRSA coverage Cardio - Hypotensive - monitor BP, if MAP < 60 start pressors - elevated trops, continue to trend - Cardiology consulted (Dr. Monroe) ID - septic - leukocytosis: 32 - lactic acid elevated, continue to trend - blood & sputum cx pending - Given Vanc & Zosyn in ED - ID consulted, (Dr. Ulloa) Renal - ESRD on HD, anuric - Nephrology consulted (Dr. Michael) Will evaluate for HD tomorrow if more stable GI: - ab xray showed peg is functional Endocrine - hx DM - elevated BG on admission - BGM q6h w/ ISS FEN - given 1 L NS in ED - Nepro peg feeds - monitor I&Os - monitor electrolytes daily Dispo: GOC discussion with family and palliative care Visit type - Medication Review Med list reviewed for High Risk Meds patients 65 and older: Yes - Emergency Visit Emergency Visit: Yes ED Registration Date: 03/07/20 Care time: The patient presented to the Emergency Department on the above date and was hospitalized for further evaluation of their emergent condition. - New Patient This patient is new to me today: Yes Date on this admission: 03/07/20 - Critical Care Critical Care patient: Yes Total Critical Care Time (in minutes): 37 Critical Care Statement: The care of this patient involved high complexity decision making to prevent further life threatening deterioration of the patient's condition and/or to evaluate & treat vital organ system(s) failure or risk of failure. ATTENDING PHYSICIAN STATEMENT I saw and evaluated the patient. I reviewed the resident's note and discussed the case with the resident. I agree with the resident's findings and plan as documented. SUBJECTIVE: OBJECTIVE: ASSESSMENT AND PLAN:
[2020-03-08] MEDS ORDERED: INSULIN SLIDING SCALE (NOVOLOG) 1 VIAL SQ SCH (01:30)
[2020-03-08] MEDS ORDERED: INSULIN (NOVOLOG) ASPART 100 UNITS/ML 10ML VIAL SQ ONE (01:49)
[2020-03-08] MEDS ORDERED: DEXTROSE 5%-WATER - 50 ML IVPB ONE ×3 (05:19→16:39)
[2020-03-08] MEDS ORDERED: PIPERACILLIN/TAZOBACTAM 3.375 GM VIAL IVPB ONE ×2 (05:19→12:45)
[2020-03-08] MEDS: INSULIN SLIDING SCALE (NOVOLOG) 1 VIAL SQ SCH ×3 (05:30→17:27)
[2020-03-08] MEDS: PIPERACILLIN/TAZOB 3.375 GM 3.375 GM in DEXTROSE 5%-WATER - 50 ML IVPB SCH ×2 (05:32→12:46)
[2020-03-08] MEDS: ACETYLCYSTEINE 20% 200MG/ML 4 ML VIAL *FOR ORAL / INH USE ONLY NEB SCH ×4 (08:05→20:14)
[2020-03-08] MEDS: ALBUTEROL SO4 0.083% IH SOL 2.5 MG/3 ML VIAL.NEB. NEB PRN ×3 (08:05→20:14)
[2020-03-08] MEDS ORDERED: PT OWN MED DRAWER 7, Y5N ONE (08:55)
[2020-03-08] MEDS: MUPIROCIN 2% TOPICAL OINTMENT FOR DECOLONIZATION NS SCH ×2 (09:25→21:32)
[2020-03-08] MEDS ORDERED: VANCOMYCIN 1 GM PREMIX - 1 GM/200 ML BAG IVPB SCH (10:00)
[2020-03-08] MEDS ORDERED: VANCOMYCIN 1 GRAM (PRE-DOCKED) 1,000 MG/250 ML BAG IVPB ONE (10:00)
--- NOTE | 2020-03-08 10:34 | EKG ---
Test Reason : Blood Pressure : / mmHG Vent. Rate : 091 BPM Atrial Rate : 091 BPM P-R Int : 148 ms QRS Dur : 138 ms QT Int : 414 ms P-R-T Axes : 080 043 173 degrees QTc Int : 509 ms NORMAL SINUS RHYTHM LEFT BUNDLE BRANCH BLOCK CANNOT RULE OUT ANTERIOR INFARCT , AGE UNDETERMINED NONSPECIFIC ST AND T WAVE ABNORMALITY ABNORMAL ECG Confirmed by MOIRA BAILON MD ([id number]) on 03/08/2020 10:34:20 AM Referred By: Confirmed By:MOIRA BAILON MD
--- NOTE | 2020-03-08 11:30 | PN ---
Teaching Attending Note Name of Resident: Andi Moreno ATTENDING PHYSICIAN STATEMENT I saw and evaluated the patient. I reviewed the resident's note and discussed the case with the resident. I agree with the resident's findings and plan as documented. SUBJECTIVE: Pt seen and examined in the ICU. Vented, unresponsive. Hemodynamically stable. OBJECTIVE: Vital Signs Period Temp Pulse Resp BP Sys/Ramirez Pulse Ox Last 24 Hr 96.5 F-100.3 F 87-120 14-24 89-115/46-65 95-100 Intake & Output 03/05/20 03/06/20 03/07/20 03/08/20 23:59 23:59 23:59 23:59 Intake Total 110 Output Total 0 0 Balance 0 110 Weight 47.627 kg 55.656 kg Gen: vented, unresponsive Heart: RRR Lung: decreased breath sounds at the bases Abd: soft, nontender Ext: no edema CBC, BMP 03/07/20 15:03 03/07/20 15:03 Active Medications Acetylcysteine (Mucomyst 20 Oral / Inh Use Only*) 200 mg NEB RQID JOSE Last Admin: 03/08/20 08:05 Dose: 200 mg Documented by: Albuterol Sulfate (Ventolin 0.083% Nebulizer Soln -) 1 amp NEB Q6H PRN PRN Reason: SHORT OF BREATH/WHEEZING Last Admin: 03/08/20 08:05 Dose: 1 amp Documented by: Chlorhexidine Gluconate (Hibiclens For Decolonization -) 1 applic TP HS JOSE Sodium Chloride (Normal Saline -) 250 mls @ 3,000 mls/hr IV PRN PRN PRN Reason: Hypotension during Dialysis Stop: 03/08/20 18:03 Piperacillin Sod/Tazobactam (Sod 3.375 gm/ Dextrose) 50 mls @ 100 mls/hr IVPB Q8H-IV JOSE; Protocol Vancomycin HCl (Vancomycin 1 Gm Premix -) 1 gm in 200 mls @ 133.333 mls/hr IVPB Q24H JOSE Piperacillin Sod/Tazobactam (Sod 3.375 gm/ Dextrose) 50 mls @ 100 mls/hr IVPB Q8H JOSE Stop: 03/08/20 13:29 Last Admin: 03/08/20 05:32 Dose: 100 mls/hr Documented by: Insulin Aspart (Novolog Vial Sliding Scale -) 1 vial SQ Q6H [facility]; Protocol Last Admin: 03/08/20 05:30 Dose: 10 units Documented by: Mupirocin (Bactroban Ointment (For Decolonization) -) 1 applic NS BID [facility] Stop: 03/13/20 09:59 Last Admin: 03/08/20 09:25 Dose: 1 applic Documented by: ASSESSMENT AND PLAN: Chronic Respiratory Failure Dislodged PEG tube s/p replacement r/o Pneumonia Sepsis HTN Hyperlipidemia - continue antibiotics - f/u cultures - HD per renal - FiO2 to keep SpO2 >90% - continue volume assist control - not a candidate for weaning due to poor mental status - enteral feeds - DVT prophylaxis - can monitor on floor
--- NOTE | 2020-03-08 11:51 | PN ---
Progress Note (short form) - Note Progress Note: RENAL Pt remains in ICU unresponsive Last Vital Signs Temp Pulse Resp BP Pulse Ox 97.6 F 95 H 24 H 100/56 L 96 03/08/20 10:00 03/08/20 10:00 03/08/20 10:00 03/08/20 10:00 03/08/20 10:00 lungs clear bilat cvs s1s2 rr abd soft ext no edema neuro not responsive CBC, BMP 03/07/20 15:03 03/07/20 15:03 Current Medications Generic Name Dose Route Start Last Admin Trade Name Freq PRN Reason Stop Dose Admin Acetylcysteine 200 mg 03/08/20 08:00 03/08/20 08:05 Mucomyst 20 Oral / Inh Use Only* NEB 200 mg RQID JOSE Administration Albuterol Sulfate 1 amp 03/08/20 08:28 03/08/20 08:05 Ventolin 0.083% Nebulizer Soln - NEB 1 amp Q6H PRN Administration SHORT OF BREATH/WHEEZING Chlorhexidine Gluconate 1 applic 03/08/20 22:00 Hibiclens For Decolonization - TP HS JOSE Sodium Chloride 250 mls @ 3,000 mls/hr 03/07/20 18:03 Normal Saline - IV 03/08/20 18:03 PRN PRN Hypotension during Dialysis Piperacillin Sod/Tazobactam 50 mls @ 100 mls/hr 03/08/20 04:45 Sod 3.375 gm/ Dextrose IVPB Q8H-IV JOSE Protocol Vancomycin HCl 1 gm in 200 mls @ 133.333 mls/hr 03/08/20 10:00 Vancomycin 1 Gm Premix - IVPB Q24H JOSE Piperacillin Sod/Tazobactam 50 mls @ 100 mls/hr 03/08/20 05:00 03/08/20 05:32 Sod 3.375 gm/ Dextrose IVPB 03/08/20 13:29 100 mls/hr Q8H JOSE Administration Insulin Aspart 1 vial 03/08/20 06:00 03/08/20 05:30 Novolog Vial Sliding Scale - SQ 10 units Q6H JOSE Administration Protocol Mupirocin 1 applic 03/08/20 10:00 03/08/20 09:25 Bactroban Ointment (For Decolonization) - NS 03/13/20 09:59 1 applic BID JOSE Administration I Impression ESRD S/P CVA chronic hypertension now hypotensive ?new onset dm PLAN will dialyze tomorrow, schedule does not permit it now continue insulin antibiotics per ID MV
--- NOTE | 2020-03-08 14:20 | PN ---
Progress Note (short form) - Note Progress Note: ID consult dictated Problem List - Problems (1) Dislodged gastrostomy tube Code(s): T85.528A - DISPLACEMENT OF GASTROINTESTINAL PROSTH DEV/GRFT, INIT (2) Leukocytosis Code(s): D72.829 - ELEVATED WHITE BLOOD CELL COUNT, UNSPECIFIED (3) Stroke Code(s): I63.9 - CEREBRAL INFARCTION, UNSPECIFIED (4) Chronic respiratory failure Code(s): J96.10 - CHRONIC RESPIRATORY FAILURE, UNSP W HYPOXIA OR HYPERCAPNIA (5) ESRD on dialysis Code(s): N18.6 - END STAGE RENAL DISEASE; Z99.2 - DEPENDENCE ON RENAL DIALYSIS
--- NOTE | 2020-03-08 14:43 | PN ---
Progress Note, Physician - Current Medication List Current Medications: Active Medications Acetylcysteine (Mucomyst 20 Oral / Inh Use Only*) 200 mg NEB RQID JOSE Last Admin: 03/08/20 12:06 Dose: 200 mg Documented by: Albuterol Sulfate (Ventolin 0.083% Nebulizer Soln -) 1 amp NEB Q6H PRN PRN Reason: SHORT OF BREATH/WHEEZING Last Admin: 03/08/20 08:05 Dose: 1 amp Documented by: Chlorhexidine Gluconate (Hibiclens For Decolonization -) 1 applic TP HS JOSE Sodium Chloride (Normal Saline -) 250 mls @ 3,000 mls/hr IV PRN PRN PRN Reason: Hypotension during Dialysis Stop: 03/08/20 18:03 Sodium Chloride (Normal Saline -) 250 mls @ 3,000 mls/hr IV PRN PRN PRN Reason: Hypotension during Dialysis Stop: 03/09/20 11:52 Piperacillin Sod/Tazobactam (Sod 2.25 gm/ Dextrose) 50 mls @ 100 mls/hr IVPB Q8H-IV JOSE; Protocol Insulin Aspart (Novolog Vial Sliding Scale -) 1 vial SQ Q6H JOSE; Protocol Last Admin: 03/08/20 12:29 Dose: Not Given Documented by: Mupirocin (Bactroban Ointment (For Decolonization) -) 1 applic NS BID JOSE Stop: 03/13/20 09:59 Last Admin: 03/08/20 09:25 Dose: 1 applic Documented by: - Objective Vital Signs: Vital Signs Temperature 97.6 F 03/08/20 10:00 Pulse Rate 105 H 03/08/20 12:00 Respiratory Rate 20 03/08/20 12:04 Blood Pressure 103/68 03/08/20 12:00 O2 Sat by Pulse Oximetry (%) 96 03/08/20 10:00 Labs: CBC, BMP 03/07/20 15:03 03/07/20 15:03 INR, PTT INR 1.28 (0.83-1.09) H 03/07/20 15:03
--- NOTE | 2020-03-08 14:44 | HP ---
Admitting History and Physical - Primary Care Physician PCP: Frederic Helms - Admission History of Present Illness: pt well known to me Recently discharged 74F with PMH of CVA presents to the ED via EMS from [facility] for a dislodged PEG tube. On arrival pt was tachycardic at 120 and borderline febrile at 100.3. Pt is unresponsive at baseline 2/2 CVA, unable to obtain history. She was just discharged recently after long hospital stay for CVA. 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 No: Renal Inusuff, Cancer, Hematuria, Neurogenic Bladder, Renal Calculi, UTI, Other ...: No - Past Surgical History Past Surgical History: Yes: AV Fistula/Graft. No: None, AAA Repair, AICD, Amputation, Appendectomy, Arthrosocopy, Bariatric Surgery, Breast Biopsy, Bypass, CABG, Carotid Endarterectomy, Cataract Removal, Cholecystectomy, Colectomy, Colonoscopy, Colostomy, Craniotomy, , Cystectomy, Hernia Repair, Hysterectomy, Ileal Conduit, Ileosotomy, Joint Replacement, Kidney Transplant, Laminectomy, Liver Transplant, Mastectomy, Nephrectomy, Oopherectomy, Permanent Pacemaker, Splenectomy, Stent, Thoracotomy, Tonsillectomy, Tubal Ligation, Upper Endoscopy, Valve Replacement, Vein Stripping/Ligation - Smoking History Smoking history: Smoker current status UNK Have you smoked in the past 12 months: No Aproximately how many cigarettes per day: 0 - Alcohol/Substance Use Hx Alcohol Use: No Home Medications - Allergies Allergies/Adverse Reactions: Allergies Allergy/AdvReac Type Severity Reaction Status Date / Time propofol AdvReac Verified 07/29/16 15:05 - Home Medications Home Medications: Ambulatory Orders Albuterol Sulfate Inhaler - [Ventolin HFA Inhaler -] 2 puff IH Q6H 01/15/20 Acetaminophen 650 mg GT TID 03/07/20 Prednisone 10 mg GT DAILY 03/07/20 predniSONE [Deltasone -] 20 mg GT DAILY 03/07/20 Family Medical History Family History: Unable to Obtain Physical Examination Vital Signs: Vital Signs Temperature 97.6 F 03/08/20 10:00 Pulse Rate 105 H 03/08/20 12:00 Respiratory Rate 20 03/08/20 12:04 Blood Pressure 103/68 03/08/20 12:00 O2 Sat by Pulse Oximetry (%) 96 03/08/20 10:00 Constitutional: Yes: Other (unresponsive) Neck: Yes: Other (s/p trach) Cardiovascular: Yes: Regular Rate and Rhythm Respiratory: Yes: Diminished Edema: No Labs: CBC, BMP 03/07/20 15:03 03/07/20 15:03 Imaging - Results Chest X-ray: Report Reviewed X-ray: Report Reviewed Problem List - Problems (1) Hyperglycemia Code(s): R73.9 - HYPERGLYCEMIA, UNSPECIFIED (2) Sepsis Code(s): A41.9 - SEPSIS, UNSPECIFIED ORGANISM Qualifiers: Sepsis type: sepsis due to unspecified organism Sepsis acute organ dysfunction status: unspecified Qualified Code(s): A41.9 - Sepsis, unspecified organism (3) ESRD on dialysis Code(s): N18.6 - END STAGE RENAL DISEASE; Z99.2 - DEPENDENCE ON RENAL DIALYSIS (4) Lactic acidosis Code(s): E87.2 - ACIDOSIS (5) Pneumonia, aspiration Code(s): J69.0 - PNEUMONITIS DUE TO INHALATION OF FOOD AND VOMIT (6) Stroke Code(s): I63.9 - CEREBRAL INFARCTION, UNSPECIFIED Assessment/Plan Monitor abx Add basal insulin Prognosis poor Will follow cc time approx 40 min
--- NOTE | 2020-03-08 14:49 | PN ---
Progress Note, Physician History of Present Illness: The patient is a 74 year old female with a significant past medical history of CVA, ESRD (on HD, normal session yesterday) who presents to the emergency department, from [facility], for evaluation of a dislodged PEG tube 3.5 hours ago, per [facility]. Upon arrival of EMS, it was discovered the patient is tachycardic and hypotensive, currently 96/81. The patient is nonverbal at baseline. The patient was admitted 01/13-03/05 for unresponsiveness for two days and was found to have a large, progressing MCA stroke. - Current Medication List Current Medications: Active Medications Acetylcysteine (Mucomyst 20 Oral / Inh Use Only*) 200 mg NEB RQID JOSE Last Admin: 03/08/20 12:06 Dose: 200 mg Documented by: Albuterol Sulfate (Ventolin 0.083% Nebulizer Soln -) 1 amp NEB Q6H PRN PRN Reason: SHORT OF BREATH/WHEEZING Last Admin: 03/08/20 08:05 Dose: 1 amp Documented by: Chlorhexidine Gluconate (Hibiclens For Decolonization -) 1 applic TP HS JOSE Sodium Chloride (Normal Saline -) 250 mls @ 3,000 mls/hr IV PRN PRN PRN Reason: Hypotension during Dialysis Stop: 03/08/20 18:03 Sodium Chloride (Normal Saline -) 250 mls @ 3,000 mls/hr IV PRN PRN PRN Reason: Hypotension during Dialysis Stop: 03/09/20 11:52 Piperacillin Sod/Tazobactam (Sod 2.25 gm/ Dextrose) 50 mls @ 100 mls/hr IVPB Q8H-IV JOSE; Protocol Insulin Aspart (Novolog Vial Sliding Scale -) 1 vial SQ Q6H JOSE; Protocol Last Admin: 03/08/20 12:29 Dose: Not Given Documented by: Mupirocin (Bactroban Ointment (For Decolonization) -) 1 applic NS BID JOSE Stop: 03/13/20 09:59 Last Admin: 03/08/20 09:25 Dose: 1 applic Documented by: - Objective Vital Signs: Vital Signs Temperature 97.6 F 03/08/20 10:00 Pulse Rate 105 H 03/08/20 12:00 Respiratory Rate 20 03/08/20 12:04 Blood Pressure 103/68 03/08/20 12:00 O2 Sat by Pulse Oximetry (%) 96 03/08/20 10:00 Eyes: Yes: WNL, Conjunctiva Clear, EOM Intact HENT: Yes: WNL, Atraumatic, Normocephalic Neck: Yes: WNL, Supple, Trachea Midline Cardiovascular: Yes: WNL, Regular Rate and Rhythm Respiratory: Yes: Diminished, Mechanically Ventilated Gastrointestinal: Yes: WNL, Normal Bowel Sounds Genitourinary: Yes: WNL Musculoskeletal: Yes: WNL Extremities: Yes: WNL Edema: No Integumentary: Yes: WNL Labs: CBC, BMP 03/07/20 15:03 03/07/20 15:03 INR, PTT INR 1.28 (0.83-1.09) H 03/07/20 15:03 Problem List - Problems (1) Sepsis Code(s): A41.9 - SEPSIS, UNSPECIFIED ORGANISM Qualifiers: Sepsis type: sepsis due to unspecified organism Sepsis acute organ dysfunction status: unspecified Qualified Code(s): A41.9 - Sepsis, unspecified organism (2) Altered mental status Code(s): R41.82 - ALTERED MENTAL STATUS, UNSPECIFIED (3) Anemia Code(s): D64.9 - ANEMIA, UNSPECIFIED (4) Clotted dialysis access Code(s): T82.49XA - OTH COMPLICATION OF VASCULAR DIALYSIS CATHETER, INIT ENCNTR (5) Diabetes Code(s): E11.9 - TYPE 2 DIABETES MELLITUS WITHOUT COMPLICATIONS (6) ESRD on dialysis Code(s): N18.6 - END STAGE RENAL DISEASE; Z99.2 - DEPENDENCE ON RENAL DIALYSIS (7) Hypertension Code(s): I10 - ESSENTIAL (PRIMARY) HYPERTENSION (8) Lactic acidosis Code(s): E87.2 - ACIDOSIS (9) Pneumonia, aspiration Code(s): J69.0 - PNEUMONITIS DUE TO INHALATION OF FOOD AND VOMIT (10) SOB (shortness of breath) Code(s): R06.02 - SHORTNESS OF BREATH (11) Stroke Code(s): I63.9 - CEREBRAL INFARCTION, UNSPECIFIED Assessment/Plan The patient is a 74 year old female with a significant past medical history of CVA, ESRD (on HD, normal session yesterday) LBBB who presents to the emergency departmentwith dislogrd PEG tube. The patient was admitted 01/13-03/05 for unresponsiveness for two days and was found to have a large, progressing MCA stroke.Positive TNIs Plan; ABX DVT PLX Ventilatory support Condition guarded. cc time spent 35 min
[2020-03-08] MEDS ORDERED: PIPERACILLIN/TAZOBACTAM 2.25 GM VIAL IVPB ONE (16:39)
[2020-03-08] MEDS: PIPERACILLIN/TAZOB 2.25 GM 2.25 GM in DEXTROSE 5%-WATER - 50 ML IVPB SCH (17:05)
--- NOTE | 2020-03-08 18:19 | PN ---
Physical Exam: SUBJECTIVE: Patient seen and examined OBJECTIVE: Vital Signs Period Temp Pulse Resp BP Sys/Ramirez Pulse Ox Last 24 Hr 96.5 F-98.6 F 87-110 14-24 89-111/46-68 95-100 GENERAL: The patient is awake, alert, and fully oriented, in no acute distress. HEAD: Normal with no signs of trauma. EYES: PERRL, extraocular movements intact, sclera anicteric, conjunctiva clear. No ptosis. ENT: Ears normal, nares patent, oropharynx clear without exudates, moist mucous membranes. NECK: Trachea midline, full range of motion, supple. LUNGS: Breath sounds equal, clear to auscultation bilaterally, no wheezes, no crackles, no accessory muscle use. HEART: Regular rate and rhythm, S1, S2 without murmur, rub or gallop. ABDOMEN: Soft, nontender, nondistended, normoactive bowel sounds, no guarding, no rebound, no hepatosplenomegaly, no masses. EXTREMITIES: 2+ pulses, warm, well-perfused, no edema. NEUROLOGICAL: Cranial nerves II through XII grossly intact. Normal speech, gait not observed. PSYCH: Normal mood, normal affect. SKIN: Warm, dry, normal turgor, no rashes or lesions noted Laboratory Results - last 24 hr 03/07/20 03/07/20 03/07/20 00:50 13:40 19:37 POC Glucometer 513 Lactic Acid 3.2 H* COVID-19 (LORRIE) Not detected 03/08/20 03/08/20 03/08/20 01:33 05:25 12:14 POC Glucometer 426 367 139 Lactic Acid COVID-19 (LORRIE) 03/08/20 17:16 POC Glucometer 186 Lactic Acid COVID-19 (LORRIE) Active Medications Generic Name Dose Route Start Last Admin Trade Name Freq PRN Reason Stop Dose Admin Acetylcysteine 200 mg 03/08/20 08:00 03/08/20 15:50 Mucomyst 20 Oral / Inh Use Only* NEB Not Given RQID JOSE Albuterol Sulfate 1 amp 03/08/20 08:28 03/08/20 15:50 Ventolin 0.083% Nebulizer Soln - NEB 1 amp Q6H PRN Administration SHORT OF BREATH/WHEEZING Chlorhexidine Gluconate 1 applic 03/08/20 22:00 Hibiclens For Decolonization - TP HS JOSE Sodium Chloride 250 mls @ 3,000 mls/hr 03/07/20 18:03 Normal Saline - IV 03/08/20 18:03 PRN PRN Hypotension during Dialysis Sodium Chloride 250 mls @ 3,000 mls/hr 03/08/20 11:52 Normal Saline - IV 03/09/20 11:52 PRN PRN Hypotension during Dialysis Piperacillin Sod/Tazobactam 50 mls @ 100 mls/hr 03/08/20 18:00 03/08/20 17:05 Sod 2.25 gm/ Dextrose IVPB 100 mls/hr Q8H-IV JOSE Administration Protocol Insulin Aspart 1 vial 03/08/20 06:00 03/08/20 17:27 Novolog Vial Sliding Scale - SQ 2 units Q6H JOSE Administration Protocol Insulin Detemir 10 units 03/08/20 22:00 Levemir Vial SQ HS [facility] Mupirocin 1 applic 03/08/20 10:00 03/08/20 09:25 Bactroban Ointment (For Decolonization) - NS 03/13/20 09:59 1 applic BID JOSE Administration ASSESSMENT/PLAN: ATTENDING PHYSICIAN STATEMENT I saw and evaluated the patient. I reviewed the resident's note and discussed the case with the resident. I agree with the resident's findings and plan as documented. SUBJECTIVE: OBJECTIVE: ASSESSMENT AND PLAN:
[2020-03-08 18:24] LABS: BASO % 0.2 % (0-2.0); HEMATOCRIT 24.3 % (32.4-45.2); HEMOGLOBIN 7.9 GM/dL (10.7-15.3); LYMPH % 1.2 % (8-40); MCH 30.1 pg (25.7-33.7); MCHC 32.4 g/dl (32.0-36.0); MEAN CELL VOLUME 93.1 fl (80-96); MEAN PLT VOLUME 10.7 fl (7.5-11.1); MONO % 1.9 % (3.8-10.2); NEUT % 96.7 % (42.8-82.8); PLATELET COUNT 177 K/MM3 (134-434); RBC 2.61 M/mm3 (3.60-5.2); RDW 19.8 % (11.6-15.6)
--- NOTE | 2020-03-08 18:30 | HOSP ---
Physical Examination Vital Signs: Vital Signs Temperature 97.5 F L 03/08/20 16:00 Pulse Rate 96 H 03/08/20 16:00 Respiratory Rate 14 03/08/20 16:00 Blood Pressure 102/56 L 03/08/20 16:00 O2 Sat by Pulse Oximetry (%) 97 03/08/20 15:50
[2020-03-08 18:32] LABS: WHITE BLOOD COUNT 35.2 K/mm3 (4.0-10.0)
[2020-03-08 19:09] LABS: ALBUMIN 1.2 g/dl (3.4-5.0); BILIRUBIN,TOTAL 0.6 mg/dL (0.2-1); BLOOD UREA NITROGEN 61.1 mg/dL (7-18); CALCIUM 7.5 mg/dL (8.5-10.1); CREATININE 2.4 mg/dL (0.55-1.3); MAGNESIUM 1.8 mg/dL (1.8-2.4); PHOSPHOROUS 2.3 mg/dL (2.5-4.9); TOT PROT 4.9 g/dl (6.4-8.2)
[2020-03-08 19:36] LABS: ANISOCYTOSIS 2+; MACROCYTOSIS 0; OVALOCYTE 1+; PLATELET ESTIMATE NORMAL; TARGET CELLS 2+
--- NOTE | 2020-03-08 20:12 | CONS ---
DATE OF CONSULTATION: DATE OF DICTATION: 03/08/2020 INFECTIOUS DISEASE CONSULTATION HISTORY OF PRESENT ILLNESS: This is a 74-year-old woman who is in the hospital from January 14 to March 05. During that admission, she was admitted for CVA, she had a proteus bacteremia for which she was treated with IV antibiotics. She was ultimately discharged to the residential and returns now 2 days later after G-tube was dislodged. She was noted in the ER to have a temperature of 100.3. At discharge, she had a persistent leukocytosis that was felt to be secondary to steroids, and she had had multiple negative blood cultures, and I am now asked to see her for possible infection. The G-tube was replaced in the ER. It fell out again, and it was just replaced by the ICU team. She has been started on vancomycin and Zosyn, and I am asked to evaluate her. She is unresponsive and cannot contribute to her history. PAST MEDICAL HISTORY: Notable for end-stage renal disease. She is on dialysis. She has a history of CVA bilaterally now, dementia, pulmonary hypertension, respiratory failure, renal failure with hemodialysis. She has an AV fistula graft. SOCIAL HISTORY: Unknown smoking status. She resides at the residential. ALLERGIES: She is allergic to PROPOFOL. MEDICATION: Her medications at the residential include prednisone, she was taking 30 mg a day at the time of discharge along with the Ventolin inhaler and p.r.n. acetaminophen. REVIEW OF SYSTEMS: Not available. The patient is unresponsive. PHYSICAL EXAMINATION: General: She is afebrile since the admission of 100.3. She has had no further fever. Vital Signs: Temperature is 97.6 with a pulse of 110, blood pressure is 106/56, respiratory rate of 15. HEENT: Normocephalic. She is on ventilator via tracheostomy. Heart: Tachycardic. Lungs: Clear to auscultation. Abdomen: Soft. G-tube site is clean. Extremities: Cool. She has a large 12 x 18 cm unstageable sacral ulcer with an eschar. LABORATORY: Notable for a white count of 32,000. Hemoglobin is 8.4, platelets are 242. At the time of discharge, her white count was 29.6. Chemistries are notable for a BUN and creatinine of 58.4, a glucose of 666 with a lactic acid of 2.6. AST of 38 and alkaline phosphatase of 376. His troponin was 4.5 on admission. Cultures have been sent and stool C. difficile is negative. Chest x-ray is improved from her recent admission. IMPRESSION: In summary, this is a 74-year-old woman who unfortunately is unresponsive due to cerebrovascular accident. She has chronic respiratory failure and is on a ventilator. She has chronic renal failure and is on dialysis, who is now admitted with dislodged G-tube, noted to have an elevated lactic acid and leukocytosis which appears chronic and may be secondary to steroids. Would continue vancomycin and Zosyn at this time pending cultures, hopefully we will be able to stop her antibiotics at that time. Her chest x-ray appears improved from her prior admission. Will review with radiology. Status post dislodged G-tube, which has been replaced. Further recommendations to follow. PIETER MATHEWS M.D. [id number]
[2020-03-08] MEDS: INSULIN (LEVEMIR) 100 UNITS/ML UNITS SQ SCH (21:31)
[2020-03-08] MEDS ORDERED: CHLORHEXIDINE GLUCONATE 4% CLEANSER FOR DECOLONIZATION TP SCH (22:00)
--- NOTE | 2020-03-09 00:29 | PN ---
Physical Exam: SUBJECTIVE: Patient seen and examined. No overnight events. OBJECTIVE: Vital Signs Period Temp Pulse Resp BP Sys/Ramirez Pulse Ox Last 24 Hr 96.5 F-97.6 F 87-110 14-24 93-111/52-68 95-100 GENERAL: The patient is awake, alert, non-verbal. responsive to painful stimuli HEENT: Normal with no signs of trauma. PERRL, moist mucous membranes. NECK: trach in place LUNGS: venti breat sounds b/l; no wheezes, no crackles HEART: Regular rate and rhythm, S1, S2 without murmur, rub or gallop. ABDOMEN: Soft, nontender, nondistended, normoactive bowel sounds, no guarding EXTREMITIES: 2+ pulses, warm, well-perfused, 3+ pitting edema b/l UE, 1+ edema b/l LE Laboratory Results - last 24 hr 03/07/20 03/07/20 03/08/20 00:50 13:40 01:33 WBC RBC Hgb Hct MCV MCH MCHC RDW Plt Count MPV Absolute Neuts (auto) Neutrophils % Neutrophils % (Manual) Band Neutrophils % Lymphocytes % Lymphocytes % (Manual) Monocytes % Monocytes % (Manual) Eosinophils % Eosinophils % (Manual) Basophils % Basophils % (Manual) Myelocytes % (Man) Promyelocytes % (Man) Blast Cells % (Manual) Nucleated RBC % Metamyelocytes Hypochromia Platelet Estimate Polychromasia Poikilocytosis Anisocytosis Microcytosis Macrocytosis Target Cells Ovalocytes Sodium Potassium Chloride Carbon Dioxide Anion Gap BUN Creatinine Est GFR (CKD-EPI)AfAm Est GFR (CKD-EPI)NonAf POC Glucometer 426 Random Glucose Lactic Acid 3.2 H* Calcium Phosphorus Magnesium Total Bilirubin AST ALT Alkaline Phosphatase Creatine Kinase Troponin I Total Protein Albumin COVID-19 (LORRIE) Not detected 03/08/20 03/08/20 03/08/20 05:25 12:14 17:16 WBC RBC Hgb Hct MCV MCH MCHC RDW Plt Count MPV Absolute Neuts (auto) Neutrophils % Neutrophils % (Manual) Band Neutrophils % Lymphocytes % Lymphocytes % (Manual) Monocytes % Monocytes % (Manual) Eosinophils % Eosinophils % (Manual) Basophils % Basophils % (Manual) Myelocytes % (Man) Promyelocytes % (Man) Blast Cells % (Manual) Nucleated RBC % Metamyelocytes Hypochromia Platelet Estimate Polychromasia Poikilocytosis Anisocytosis Microcytosis Macrocytosis Target Cells Ovalocytes Sodium Potassium Chloride Carbon Dioxide Anion Gap BUN Creatinine Est GFR (CKD-EPI)AfAm Est GFR (CKD-EPI)NonAf POC Glucometer 367 139 186 Random Glucose Lactic Acid Calcium Phosphorus Magnesium Total Bilirubin AST ALT Alkaline Phosphatase Creatine Kinase Troponin I Total Protein Albumin COVID-19 (LORRIE) 03/08/20 03/08/20 03/08/20 17:56 17:56 17:56 WBC 35.2 H* RBC 2.61 L Hgb 7.9 L Hct 24.3 L MCV 93.1 MCH 30.1 MCHC 32.4 RDW 19.8 H Plt Count 177 D MPV 10.7 Absolute Neuts (auto) 34.1 H Neutrophils % 96.7 H Neutrophils % (Manual) 87.4 H Band Neutrophils % 8.1 Lymphocytes % 1.2 L Lymphocytes % (Manual) 1.6 L Monocytes % 1.9 L Monocytes % (Manual) 1 L Eosinophils % 0.0 D Eosinophils % (Manual) 1.0 D Basophils % 0.2 Basophils % (Manual) 0.0 Myelocytes % (Man) 0 Promyelocytes % (Man) 0 Blast Cells % (Manual) 0 Nucleated RBC % 0 Metamyelocytes 0 Hypochromia 2+ Platelet Estimate Normal Polychromasia 2+ Poikilocytosis 2+ Anisocytosis 2+ Microcytosis 2+ Macrocytosis 0 Target Cells 2+ Ovalocytes 1+ Sodium 137 Potassium 3.0 L Chloride 102 Carbon Dioxide 20 L Anion Gap 15 BUN 61.1 H Creatinine 2.4 H Est GFR (CKD-EPI)AfAm 21.99 Est GFR (CKD-EPI)NonAf 18.97 POC Glucometer Random Glucose 220 H Lactic Acid 1.3 Calcium 7.5 L Phosphorus 2.3 L Magnesium 1.8 Total Bilirubin 0.6 AST 17 ALT 14 Alkaline Phosphatase 211 H Creatine Kinase 22 L Troponin I 3.36 H* Total Protein 4.9 L Albumin 1.2 L COVID-19 (LORRIE) 03/08/20 03/09/20 21:21 00:13 WBC RBC Hgb Hct MCV MCH MCHC RDW Plt Count MPV Absolute Neuts (auto) Neutrophils % Neutrophils % (Manual) Band Neutrophils % Lymphocytes % Lymphocytes % (Manual) Monocytes % Monocytes % (Manual) Eosinophils % Eosinophils % (Manual) Basophils % Basophils % (Manual) Myelocytes % (Man) Promyelocytes % (Man) Blast Cells % (Manual) Nucleated RBC % Metamyelocytes Hypochromia Platelet Estimate Polychromasia Poikilocytosis Anisocytosis Microcytosis Macrocytosis Target Cells Ovalocytes Sodium Potassium Chloride Carbon Dioxide Anion Gap BUN Creatinine Est GFR (CKD-EPI)AfAm Est GFR (CKD-EPI)NonAf POC Glucometer 140 180 Random Glucose Lactic Acid Calcium Phosphorus Magnesium Total Bilirubin AST ALT Alkaline Phosphatase Creatine Kinase Troponin I Total Protein Albumin COVID-19 (LORRIE) Active Medications Generic Name Dose Route Start Last Admin Trade Name Freq PRN Reason Stop Dose Admin Acetylcysteine 200 mg 03/09/20 08:00 Mucomyst 20 Oral / Inh Use Only* NEB RQID JOSE Albuterol Sulfate 1 amp 03/09/20 00:15 Ventolin 0.083% Nebulizer Soln - NEB Q6H PRN SHORT OF BREATH/WHEEZING Sodium Chloride 250 mls @ 3,000 mls/hr 03/08/20 11:52 Normal Saline - IV 03/09/20 11:52 PRN PRN Hypotension during Dialysis Piperacillin Sod/Tazobactam 50 mls @ 100 mls/hr 03/08/20 18:00 03/08/20 17:05 Sod 2.25 gm/ Dextrose IVPB 100 mls/hr Q8H-IV JOSE Administration Protocol Insulin Aspart 1 vial 03/09/20 06:00 Novolog Vial Sliding Scale - SQ Q6H JOSE Protocol Insulin Detemir 10 units 03/08/20 22:00 03/08/20 21:31 Levemir Vial SQ 10 units HS JOSE Administration ASSESSMENT/PLAN: 74 YO F PMH of ESRD on HD, MCA stroke 01/14/20 (trach on vent) presents from [facility] for PEG tube dislodgement. Found to be febrile, hypotensive, and tachycardic. Admitted to the ICU for sepsis 2/2 PNA. Neuro: -H/o MCA stroke. - nonverbal Pulm - s/p Tracheostomy on vent - Keep saturation > 90% -CXR: lung masses w/ atelectactasis/infiltrative changes at the bases -s/p vanc. Continue w/ zosyn -rate 14, TV 450, FIO2 40%, Cardio -Hypotension 2/2 sepsis -Maintain BP >65. -trop 4.53. trend trops ID #[id number] 08/06 PNA. - leukocytosis 32 on admission. Trended up to 35.2 - lactic acid trended down. -blood culture no growth -sputum stain pending -c diff antigen/toxin neg Renal - ESRD on HD, anuric - Renal consult appreciated. will dialyze tomorrow, GI: -peg tube dislodged; peg tube was replaced in ICU today. Endocrine -BGM -ISS FEN no ivf monitor lytes nepro tube feed Dispo: transfer to med surg Visit type - Emergency Visit Emergency Visit: Yes ED Registration Date: 03/07/20 Care time: The patient presented to the Emergency Department on the above date and was hospitalized for further evaluation of their emergent condition. - New Patient This patient is new to me today: No - Critical Care Critical Care patient: No - Medication Review Med list reviewed for High Risk Meds patients 65 and older: Yes ATTENDING PHYSICIAN STATEMENT I saw and evaluated the patient. I reviewed the resident's note and discussed the case with the resident. I agree with the resident's findings and plan as documented. SUBJECTIVE: OBJECTIVE: ASSESSMENT AND PLAN:
[2020-03-09] MEDS: INSULIN SLIDING SCALE (NOVOLOG) 1 VIAL SQ SCH ×4 (00:39→17:18)
--- NOTE | 2020-03-09 00:43 | PN ---
Progress Note (short form) - Note Progress Note: 74 YO F PMH of ESRD on HD, MCA stroke 01/14/20 (trach on vent) presents from [facility] for PEG tube dislodgement. On arrival to the ED, the patient was found to be febrile, hypotensive, and tachycardic. She was hypotensive to 96/81, temperature of 100.3 and tachycardic to 120. PEG tube was replaced in ED. Admitted to the ICU for sepsis 2/2 PNA. CXR showed lung masses w/ atelectactasis/infiltrative changes at the bases. Pt was given vanc and zosyn. Lactic acid was 3.2 and downtrended to 1.3. Leukocytosis was 32 on admission, but trended up to 35.2. Blood culture showed no growth and c diff antigen/toxin was negative. Sputum stain pending. Peg tube dislodged while in the ICU. It was replaced again. GENERAL: The patient is awake, alert, non-verbal. responsive to painful stimuli HEENT: Normal with no signs of trauma. PERRL, moist mucous membranes. NECK: trach in place LUNGS: venti breat sounds b/l; no wheezes, no crackles HEART: Regular rate and rhythm, S1, S2 without murmur, rub or gallop. ABDOMEN: Soft, nontender, nondistended, normoactive bowel sounds, no guarding EXTREMITIES: 2+ pulses, warm, well-perfused, 3+ pitting edema b/l UE, 1+ edema b/l LE
[2020-03-09] MEDS ORDERED: PIPERACILLIN/TAZOBACTAM 2.25 GM VIAL IVPB ONE ×3 (01:49→15:47)
[2020-03-09] MEDS ORDERED: DEXTROSE 5%-WATER - 50 ML IVPB ONE ×3 (01:49→15:48)
[2020-03-09] MEDS: PIPERACILLIN/TAZOB 2.25 GM 2.25 GM in DEXTROSE 5%-WATER - 50 ML IVPB SCH ×3 (01:50→18:54)
--- NOTE | 2020-03-09 06:41 | PN ---
Progress Note, Physician History of Present Illness: pulmonary unresponsive on vent support ac mode,-resp distress - Current Medication List Current Medications: Active Medications Acetylcysteine (Mucomyst 20 Oral / Inh Use Only*) 200 mg NEB RQID JOSE Albuterol Sulfate (Ventolin 0.083% Nebulizer Soln -) 1 amp NEB Q6H PRN PRN Reason: SHORT OF BREATH/WHEEZING Sodium Chloride (Normal Saline -) 250 mls @ 3,000 mls/hr IV PRN PRN PRN Reason: Hypotension during Dialysis Stop: 03/09/20 11:52 Piperacillin Sod/Tazobactam (Sod 2.25 gm/ Dextrose) 50 mls @ 100 mls/hr IVPB Q8H-IV JOSE; Protocol Last Admin: 03/09/20 01:50 Dose: 100 mls/hr Documented by: Insulin Aspart (Novolog Vial Sliding Scale -) 1 vial SQ Q6H JOSE; Protocol Insulin Detemir (Levemir Vial) 10 units SQ HS JOSE Last Admin: 03/08/20 21:31 Dose: 10 units Documented by: - Objective Vital Signs: Vital Signs Temperature 97.8 F 03/09/20 02:00 Pulse Rate 102 H 03/09/20 02:00 Respiratory Rate 14 03/09/20 04:25 Blood Pressure 92/50 L 03/09/20 02:00 O2 Sat by Pulse Oximetry (%) 98 03/09/20 04:25 Constitutional: Yes: Thin, Other (unresponsive) Eyes: Yes: WNL HENT: Yes: WNL Neck: Yes: Supple (trach) Cardiovascular: Yes: Regular Rate and Rhythm, S1, S2 Respiratory: Yes: Mechanically Ventilated, Rhonchi Gastrointestinal: Yes: Normal Bowel Sounds, Soft Extremities: Yes: WNL Edema: No Labs: CBC, BMP - ....Imaging Chest X-ray: Image Reviewed Assessment/Plan ASSESSMENT AND PLAN: Chronic Respiratory Failure Dislodged PEG tube s/p replacement r/o Pneumonia Sepsis HTN Hyperlipidemia ckd - continue antibiotics - HD per renal - FiO2 to keep SpO2 >90% - continue volume assist control - not a candidate for weaning due to poor mental status - enteral feeds - DVT prophylaxis -monitor lytes,renal function,cbc - DR RAMIREZ
[2020-03-09] MEDS ORDERED: INSULIN (NOVOLOG) ASPART 100 UNITS/ML 10ML VIAL ONE (07:30)
[2020-03-09] MEDS: PIPERACILLIN/TAZOB 3.375 GM 3.375 GM in DEXTROSE 5%-WATER - 50 ML IVPB SCH ×2 (07:50→07:51)
[2020-03-09] MEDS: ALBUTEROL SO4 0.083% IH SOL 2.5 MG/3 ML VIAL.NEB. NEB PRN ×3 (08:00→15:16)
[2020-03-09] MEDS: ACETYLCYSTEINE 20% 200MG/ML 4 ML VIAL *FOR ORAL / INH USE ONLY NEB SCH ×4 (08:00→20:34)
[2020-03-09] MEDS ORDERED: MUPIROCIN 2% TOPICAL OINTMENT FOR DECOLONIZATION NS SCH (10:00)
--- NOTE | 2020-03-09 10:41 | PN ---
Progress Note, Physician History of Present Illness: The patient is a 74 year old female with a significant past medical history of CVA, ESRD (on HD, normal session yesterday) who presents to the emergency department, from [facility], for evaluation of a dislodged PEG tube 3.5 hours ago, per [facility]. Upon arrival of EMS, it was discovered the patient is tachycardic and hypotensive, currently 96/81. The patient is nonverbal at baseline. The patient was admitted 01/13-03/05 for unresponsiveness for two days and was found to have a large, progressing MCA stroke. - Current Medication List Current Medications: Active Medications Acetylcysteine (Mucomyst 20 Oral / Inh Use Only*) 200 mg NEB RQID JOSE Albuterol Sulfate (Ventolin 0.083% Nebulizer Soln -) 1 amp NEB Q6H PRN PRN Reason: SHORT OF BREATH/WHEEZING Sodium Chloride (Normal Saline -) 250 mls @ 3,000 mls/hr IV PRN PRN PRN Reason: Hypotension during Dialysis Stop: 03/09/20 11:52 Piperacillin Sod/Tazobactam (Sod 2.25 gm/ Dextrose) 50 mls @ 100 mls/hr IVPB Q8H-IV JOSE; Protocol Last Admin: 03/09/20 09:02 Dose: 100 mls/hr Documented by: Insulin Aspart (Novolog Vial Sliding Scale -) 1 vial SQ Q6H JOSE; Protocol Last Admin: 03/09/20 07:09 Dose: 6 unit Documented by: Insulin Detemir (Levemir Vial) 10 units SQ HS JOSE Last Admin: 03/08/20 21:31 Dose: 10 units Documented by: - Objective Vital Signs: Vital Signs Temperature 99.5 F 03/09/20 06:00 Pulse Rate 112 H 03/09/20 08:30 Respiratory Rate 22 H 03/09/20 08:30 Blood Pressure 92/50 L 03/09/20 08:30 O2 Sat by Pulse Oximetry (%) 98 03/09/20 04:25 Eyes: Yes: WNL, Conjunctiva Clear, EOM Intact HENT: Yes: WNL, Atraumatic, Normocephalic Neck: Yes: WNL, Supple, Trachea Midline Cardiovascular: Yes: WNL, Regular Rate and Rhythm Respiratory: Yes: Regular, Diminished, Mechanically Ventilated Gastrointestinal: Yes: WNL, Normal Bowel Sounds Genitourinary: Yes: WNL Musculoskeletal: Yes: WNL Extremities: Yes: WNL Edema: No Integumentary: Yes: WNL Labs: CBC, BMP 03/08/20 17:56 03/08/20 17:56 INR, PTT INR 1.28 (0.83-1.09) H 03/07/20 15:03 Problem List - Problems (1) Sepsis Code(s): A41.9 - SEPSIS, UNSPECIFIED ORGANISM Qualifiers: Sepsis type: sepsis due to unspecified organism Sepsis acute organ dysfunction status: unspecified Qualified Code(s): A41.9 - Sepsis, unspecified organism (2) Altered mental status Code(s): R41.82 - ALTERED MENTAL STATUS, UNSPECIFIED (3) Anemia Code(s): D64.9 - ANEMIA, UNSPECIFIED (4) Clotted dialysis access Code(s): T82.49XA - OTH COMPLICATION OF VASCULAR DIALYSIS CATHETER, INIT ENCNTR (5) Diabetes Code(s): E11.9 - TYPE 2 DIABETES MELLITUS WITHOUT COMPLICATIONS (6) ESRD on dialysis Code(s): N18.6 - END STAGE RENAL DISEASE; Z99.2 - DEPENDENCE ON RENAL DIALYSIS (7) Hypertension Code(s): I10 - ESSENTIAL (PRIMARY) HYPERTENSION (8) Lactic acidosis Code(s): E87.2 - ACIDOSIS (9) Pneumonia, aspiration Code(s): J69.0 - PNEUMONITIS DUE TO INHALATION OF FOOD AND VOMIT (10) SOB (shortness of breath) Code(s): R06.02 - SHORTNESS OF BREATH (11) Stroke Code(s): I63.9 - CEREBRAL INFARCTION, UNSPECIFIED Assessment/Plan The patient is a 74 year old female with a significant past medical history of CVA, ESRD (on HD, normal session yesterday) LBBB who presents to the emergency departmentwith dislogrd PEG tube. The patient was admitted 01/13-03/05 for unresponsiveness for two days and was found to have a large, progressing MCA stroke.Positive TNIs Plan; ABX DVT PLX Ventilatory support Condition guarded.
[2020-03-09] MEDS ORDERED: SODIUM CHLORIDE 250 ML IV PRN (11:52)
--- NOTE | 2020-03-09 11:54 | PN ---
Progress Note (short form) - Note Progress Note: unresponsive on vent getting dialysis now Vital Signs - 24 hr 03/08/20 03/08/20 03/08/20 12:00 12:04 14:00 Temperature 97.6 F Pulse Rate 105 H 110 H Respiratory 21 H 20 15 Rate Blood Pressure 103/68 106/56 L O2 Sat by Pulse Oximetry (%) 03/08/20 03/08/20 03/08/20 15:50 16:00 18:00 Temperature 97.5 F L Pulse Rate 96 H 93 H Respiratory 15 14 14 Rate Blood Pressure 102/56 L 93/52 L O2 Sat by Pulse 97 Oximetry (%) 03/08/20 03/08/20 03/08/20 20:00 20:14 20:22 Temperature 97.6 F Pulse Rate 95 H Respiratory 14 16 14 Rate Blood Pressure 94/52 L O2 Sat by Pulse 98 95 98 Oximetry (%) 03/08/20 03/09/20 03/09/20 22:00 00:19 02:00 Temperature 97.9 F 97.8 F Pulse Rate 108 H 102 H Respiratory 14 15 15 Rate Blood Pressure 112/57 L 92/50 L O2 Sat by Pulse 98 98 Oximetry (%) 03/09/20 03/09/20 03/09/20 04:25 06:00 08:30 Temperature 99.5 F Pulse Rate 113 H 112 H Respiratory 14 14 22 H Rate Blood Pressure 99/46 L 92/50 L O2 Sat by Pulse 98 Oximetry (%) Current Medications Generic Name Dose Route Start Last Admin Trade Name Freq PRN Reason Stop Dose Admin Acetylcysteine 200 mg 03/09/20 08:00 Mucomyst 20 Oral / Inh Use Only* NEB RQID JOSE Albuterol Sulfate 1 amp 03/09/20 00:15 Ventolin 0.083% Nebulizer Soln - NEB Q6H PRN SHORT OF BREATH/WHEEZING Sodium Chloride 250 mls @ 3,000 mls/hr 03/08/20 11:52 Normal Saline - IV 03/09/20 11:52 PRN PRN Hypotension during Dialysis Piperacillin Sod/Tazobactam 50 mls @ 100 mls/hr 03/08/20 18:00 03/09/20 09:02 Sod 2.25 gm/ Dextrose IVPB 100 mls/hr Q8H-IV JOSE Administration Protocol Insulin Aspart 1 vial 03/09/20 06:00 03/09/20 07:09 Novolog Vial Sliding Scale - SQ 6 unit Q6H [facility] Administration Protocol Insulin Detemir 10 units 03/08/20 22:00 03/08/20 21:31 Levemir Vial SQ 10 units HS JOSE Administration Laboratory Results - last 24 hr 03/08/20 03/08/20 03/08/20 12:14 17:16 17:56 WBC 35.2 H* RBC 2.61 L Hgb 7.9 L Hct 24.3 L MCV 93.1 MCH 30.1 MCHC 32.4 RDW 19.8 H Plt Count 177 D MPV 10.7 Absolute Neuts (auto) 34.1 H Neutrophils % 96.7 H Neutrophils % (Manual) 87.4 H Band Neutrophils % 8.1 Lymphocytes % 1.2 L Lymphocytes % (Manual) 1.6 L Monocytes % 1.9 L Monocytes % (Manual) 1 L Eosinophils % 0.0 D Eosinophils % (Manual) 1.0 D Basophils % 0.2 Basophils % (Manual) 0.0 Myelocytes % (Man) 0 Promyelocytes % (Man) 0 Blast Cells % (Manual) 0 Nucleated RBC % 0 Metamyelocytes 0 Hypochromia 2+ Platelet Estimate Normal Polychromasia 2+ Poikilocytosis 2+ Anisocytosis 2+ Microcytosis 2+ Macrocytosis 0 Target Cells 2+ Ovalocytes 1+ Sodium Potassium Chloride Carbon Dioxide Anion Gap BUN Creatinine Est GFR (CKD-EPI)AfAm Est GFR (CKD-EPI)NonAf POC Glucometer 139 186 Random Glucose Lactic Acid Calcium Phosphorus Magnesium Total Bilirubin AST ALT Alkaline Phosphatase Creatine Kinase Troponin I Total Protein Albumin 03/08/20 03/08/20 03/08/20 17:56 17:56 21:21 WBC RBC Hgb Hct MCV MCH MCHC RDW Plt Count MPV Absolute Neuts (auto) Neutrophils % Neutrophils % (Manual) Band Neutrophils % Lymphocytes % Lymphocytes % (Manual) Monocytes % Monocytes % (Manual) Eosinophils % Eosinophils % (Manual) Basophils % Basophils % (Manual) Myelocytes % (Man) Promyelocytes % (Man) Blast Cells % (Manual) Nucleated RBC % Metamyelocytes Hypochromia Platelet Estimate Polychromasia Poikilocytosis Anisocytosis Microcytosis Macrocytosis Target Cells Ovalocytes Sodium 137 Potassium 3.0 L Chloride 102 Carbon Dioxide 20 L Anion Gap 15 BUN 61.1 H Creatinine 2.4 H Est GFR (CKD-EPI)AfAm 21.99 Est GFR (CKD-EPI)NonAf 18.97 POC Glucometer 140 Random Glucose 220 H Lactic Acid 1.3 Calcium 7.5 L Phosphorus 2.3 L Magnesium 1.8 Total Bilirubin 0.6 AST 17 ALT 14 Alkaline Phosphatase 211 H Creatine Kinase 22 L Troponin I 3.36 H* Total Protein 4.9 L Albumin 1.2 L 03/09/20 03/09/20 00:13 06:06 WBC RBC Hgb Hct MCV MCH MCHC RDW Plt Count MPV Absolute Neuts (auto) Neutrophils % Neutrophils % (Manual) Band Neutrophils % Lymphocytes % Lymphocytes % (Manual) Monocytes % Monocytes % (Manual) Eosinophils % Eosinophils % (Manual) Basophils % Basophils % (Manual) Myelocytes % (Man) Promyelocytes % (Man) Blast Cells % (Manual) Nucleated RBC % Metamyelocytes Hypochromia Platelet Estimate Polychromasia Poikilocytosis Anisocytosis Microcytosis Macrocytosis Target Cells Ovalocytes Sodium Potassium Chloride Carbon Dioxide Anion Gap BUN Creatinine Est GFR (CKD-EPI)AfAm Est GFR (CKD-EPI)NonAf POC Glucometer 180 292 Random Glucose Lactic Acid Calcium Phosphorus Magnesium Total Bilirubin AST ALT Alkaline Phosphatase Creatine Kinase Troponin I Total Protein Albumin S1 S2 RRR Lungs decreased Abd- soft, NT GT+ edema PLAN cardiac enzymes trending down-- demand ischemia due to sepsis vitals stable so far on antibiotics call for palliative care eval not a candidate for weaning due to unresponsive state poor prognosis Problem List - Problems (1) Unresponsiveness Code(s): R41.89 - [facility] SYMPTOMS AND SIGNS W COGNITIVE FUNCTIONS AND AWARENESS (2) Sepsis Code(s): A41.9 - SEPSIS, UNSPECIFIED ORGANISM Qualifiers: Sepsis type: sepsis due to unspecified organism Sepsis acute organ dysfunction status: unspecified Qualified Code(s): A41.9 - Sepsis, unspecified organism (3) ESRD on dialysis Code(s): N18.6 - END STAGE RENAL DISEASE; Z99.2 - DEPENDENCE ON RENAL DIALYSIS (4) Stroke Code(s): I63.9 - CEREBRAL INFARCTION, UNSPECIFIED
--- NOTE | 2020-03-09 14:13 | PN ---
Progress Note, Physician Chief Complaint: AMS History of Present Illness: Seen and examined at the bedside currently getting dialysis BP is low, UF not possible access working well pt remains unresponsive on vent via trach - Current Medication List Current Medications: Active Medications Acetylcysteine (Mucomyst 20 Oral / Inh Use Only*) 200 mg NEB RQID JOSE Last Admin: 03/09/20 12:25 Dose: 200 mg Documented by: Albuterol Sulfate (Ventolin 0.083% Nebulizer Soln -) 1 amp NEB Q6H PRN PRN Reason: SHORT OF BREATH/WHEEZING Last Admin: 03/09/20 12:25 Dose: 1 amp Documented by: Sodium Chloride (Normal Saline -) 250 mls @ 3,000 mls/hr IV PRN PRN PRN Reason: Hypotension during Dialysis Stop: 03/09/20 11:52 Piperacillin Sod/Tazobactam (Sod 2.25 gm/ Dextrose) 50 mls @ 100 mls/hr IVPB Q8H-IV JOSE; Protocol Last Admin: 03/09/20 09:02 Dose: 100 mls/hr Documented by: Insulin Aspart (Novolog Vial Sliding Scale -) 1 vial SQ Q6H JOSE; Protocol Last Admin: 03/09/20 11:59 Dose: 8 unit Documented by: Insulin Detemir (Levemir Vial) 10 units SQ HS JOSE Last Admin: 03/08/20 21:31 Dose: 10 units Documented by: - Objective Vital Signs: Vital Signs Temperature 99.5 F 03/09/20 06:00 Pulse Rate 112 H 03/09/20 10:00 Respiratory Rate 24 H 03/09/20 12:05 Blood Pressure 92/50 L 03/09/20 10:00 O2 Sat by Pulse Oximetry (%) 98 03/09/20 04:25 Constitutional: Yes: No Distress, Other (unresponsive) Cardiovascular: Yes: Regular Rate and Rhythm Respiratory: Yes: Diminished, Mechanically Ventilated Edema: No Labs: CBC, BMP 03/08/20 17:56 03/08/20 17:56 INR, PTT INR 1.28 (0.83-1.09) H 03/07/20 15:03 Assessment/Plan Impression ESRD S/P CVA chronic hypertension now hypotensive PLAN Currrently getting dialysis but unable to perform UF given low BP. Will continue HD for clearance only. Continue supportive care overall prognosis is poor. Raman Chowdhury DO
[2020-03-09 14:20] LABS: BASO % 0.1 % (0-2.0); EOS % 0.1 % (0-4.5); HEMATOCRIT 22.2 % (32.4-45.2); LYMPH % 1.4 % (8-40); MCH 30.1 pg (25.7-33.7); MCHC 31.6 g/dl (32.0-36.0); MEAN CELL VOLUME 95.2 fl (80-96); MEAN PLT VOLUME 11.3 fl (7.5-11.1); MONO % 1.4 % (3.8-10.2); PLATELET COUNT 173 K/MM3 (134-434); RBC 2.34 M/mm3 (3.60-5.2); RDW 20.1 % (11.6-15.6)
[2020-03-09 14:23] LABS: WHITE BLOOD COUNT 32.3 K/mm3 (4.0-10.0)
[2020-03-09 14:27] LABS: INR 1.51 (0.83-1.09); PROTHROMBIN TIME (PATIENT) 17.9 SEC (9.7-13.0)
[2020-03-09 14:30] LABS: ACTIVATED PTT 39.9 SECONDS (25.2-36.5)
[2020-03-09 14:43] LABS: ALBUMIN 1.1 g/dl (3.4-5.0); BILIRUBIN,TOTAL 0.3 mg/dL (0.2-1); BLOOD UREA NITROGEN 65.4 mg/dL (7-18); CREATININE 2.6 mg/dL (0.55-1.3); PHOSPHOROUS 2.6 mg/dL (2.5-4.9); TOT PROT 4.6 g/dl (6.4-8.2)
[2020-03-09 14:57] LABS: CALCIUM 7.7 mg/dL (8.5-10.1)
[2020-03-09 15:10] LABS: POTASSIUM 2.8 mmol/L (3.5-5.1)
[2020-03-09 15:21] LABS: ANISOCYTOSIS 2+; HELMET CELLS 1+; MACROCYTOSIS 1+; OVALOCYTE 1+; PLATELET ESTIMATE NORMAL
[2020-03-09] MEDS: KCL 10 MEQ IVPB 10 MEQ/100 ML INFUS.BAG IVPB SCH ×2 (16:31→17:45)
[2020-03-09] MEDS: INSULIN (LEVEMIR) 100 UNITS/ML UNITS SQ SCH (21:41)
[2020-03-09] MEDS ORDERED: CHLORHEXIDINE GLUCONATE 4% CLEANSER FOR DECOLONIZATION TP SCH (22:00)
[2020-03-10] MEDS ORDERED: PIPERACILLIN/TAZOBACTAM 2.25 GM VIAL IVPB ONE ×3 (00:48→16:46)
[2020-03-10] MEDS ORDERED: DEXTROSE 5%-WATER - 50 ML IVPB ONE ×3 (00:48→16:46)
[2020-03-10] MEDS: PIPERACILLIN/TAZOB 2.25 GM 2.25 GM in DEXTROSE 5%-WATER - 50 ML IVPB SCH ×3 (01:04→17:10)
[2020-03-10] MEDS: INSULIN SLIDING SCALE (NOVOLOG) 1 VIAL SQ SCH ×5 (01:04→23:03)
--- NOTE | 2020-03-10 07:02 | PN ---
Progress Note, Physician History of Present Illness: pulmonary no change unresponsive on vent support ac mode - Current Medication List Current Medications: Active Medications Acetylcysteine (Mucomyst 20 Oral / Inh Use Only*) 200 mg NEB RQID JOSE Last Admin: 03/09/20 20:34 Dose: 200 mg Documented by: Albuterol Sulfate (Ventolin 0.083% Nebulizer Soln -) 1 amp NEB Q6H PRN PRN Reason: SHORT OF BREATH/WHEEZING Last Admin: 03/09/20 15:16 Dose: 1 amp Documented by: Piperacillin Sod/Tazobactam (Sod 2.25 gm/ Dextrose) 50 mls @ 100 mls/hr IVPB Q8H-IV JOSE; Protocol Last Admin: 03/10/20 01:04 Dose: 100 mls/hr Documented by: Insulin Aspart (Novolog Vial Sliding Scale -) 1 vial SQ Q6H JOSE; Protocol Last Admin: 03/10/20 05:47 Dose: Not Given Documented by: Insulin Detemir (Levemir Vial) 10 units SQ HS JOSE Last Admin: 03/09/20 21:41 Dose: 10 units Documented by: - Objective Vital Signs: Vital Signs Temperature 99.2 F 03/10/20 05:51 Pulse Rate 109 H 03/10/20 05:51 Respiratory Rate 14 03/10/20 05:51 Blood Pressure 160/87 03/10/20 05:51 O2 Sat by Pulse Oximetry (%) 93 L 03/10/20 02:00 Constitutional: Yes: Thin, Other (unresponsive) Eyes: Yes: WNL HENT: Yes: WNL Neck: Yes: Supple (trach) Cardiovascular: Yes: Pulse Irregular, S1, S2 Respiratory: Yes: Rhonchi (few rhonchi) Gastrointestinal: Yes: Normal Bowel Sounds, Soft Extremities: Yes: WNL Edema: Yes Labs: CBC, BMP Assessment/Plan ASSESSMENT AND PLAN: Chronic Respiratory Failure Dislodged PEG tube s/p replacement r/o Pneumonia Sepsis HTN Hyperlipidemia ckd + troponin - continue antibiotics - HD per renal - FiO2 to keep SpO2 >90% - continue volume assist control - not a candidate for weaning due to poor mental status - enteral feeds - DVT prophylaxis -monitor lytes,renal function,cbc - trend troponin - DR RAMIREZ
[2020-03-10] MEDS: ACETYLCYSTEINE 20% 200MG/ML 4 ML VIAL *FOR ORAL / INH USE ONLY NEB SCH ×4 (08:36→20:02)
[2020-03-10] MEDS: ALBUTEROL SO4 0.083% IH SOL 2.5 MG/3 ML VIAL.NEB. NEB PRN ×4 (08:37→20:02)
--- NOTE | 2020-03-10 08:47 | PN ---
Progress Note, Physician History of Present Illness: The patient is a 74 year old female with a significant past medical history of CVA, ESRD (on HD, normal session yesterday) who presents to the emergency department, from [facility], for evaluation of a dislodged PEG tube 3.5 hours ago, per [facility]. Upon arrival of EMS, it was discovered the patient is tachycardic and hypotensive, currently 96/81. The patient is nonverbal at baseline. The patient was admitted 01/13-03/05 for unresponsiveness for two days and was found to have a large, progressing MCA stroke. - Current Medication List Current Medications: Active Medications Acetylcysteine (Mucomyst 20 Oral / Inh Use Only*) 200 mg NEB RQID JOSE Last Admin: 03/10/20 08:36 Dose: 200 mg Documented by: Albuterol Sulfate (Ventolin 0.083% Nebulizer Soln -) 1 amp NEB Q6H PRN PRN Reason: SHORT OF BREATH/WHEEZING Last Admin: 03/10/20 08:37 Dose: 1 amp Documented by: Piperacillin Sod/Tazobactam (Sod 2.25 gm/ Dextrose) 50 mls @ 100 mls/hr IVPB Q8H-IV JOSE; Protocol Last Admin: 03/10/20 01:04 Dose: 100 mls/hr Documented by: Insulin Aspart (Novolog Vial Sliding Scale -) 1 vial SQ Q6H JOSE; Protocol Last Admin: 03/10/20 05:47 Dose: Not Given Documented by: Insulin Detemir (Levemir Vial) 10 units SQ HS JOSE Last Admin: 03/09/20 21:41 Dose: 10 units Documented by: - Objective Vital Signs: Vital Signs Temperature 99.2 F 03/10/20 05:51 Pulse Rate 109 H 03/10/20 05:51 Respiratory Rate 18 03/10/20 08:37 Blood Pressure 160/87 03/10/20 05:51 O2 Sat by Pulse Oximetry (%) 93 L 03/10/20 02:00 Eyes: Yes: WNL, Conjunctiva Clear, EOM Intact HENT: Yes: WNL, Atraumatic, Normocephalic Neck: Yes: WNL, Supple, Trachea Midline Cardiovascular: Yes: WNL, Regular Rate and Rhythm Respiratory: Yes: Diminished, Mechanically Ventilated Gastrointestinal: Yes: WNL, Normal Bowel Sounds Genitourinary: Yes: WNL Musculoskeletal: Yes: WNL Extremities: Yes: WNL Edema: No Integumentary: Yes: WNL Labs: CBC, BMP 03/09/20 13:00 03/09/20 13:00 INR, PTT INR 1.51 (0.83-1.09) H 03/09/20 13:00 Problem List - Problems (1) Sepsis Code(s): A41.9 - SEPSIS, UNSPECIFIED ORGANISM Qualifiers: Sepsis type: sepsis due to unspecified organism Sepsis acute organ dysfunction status: unspecified Qualified Code(s): A41.9 - Sepsis, unspecified organism (2) Altered mental status Code(s): R41.82 - ALTERED MENTAL STATUS, UNSPECIFIED (3) Anemia Code(s): D64.9 - ANEMIA, UNSPECIFIED (4) Clotted dialysis access Code(s): T82.49XA - OTH COMPLICATION OF VASCULAR DIALYSIS CATHETER, INIT ENCNTR (5) Diabetes Code(s): E11.9 - TYPE 2 DIABETES MELLITUS WITHOUT COMPLICATIONS (6) ESRD on dialysis Code(s): N18.6 - END STAGE RENAL DISEASE; Z99.2 - DEPENDENCE ON RENAL DIALYSIS (7) Hypertension Code(s): I10 - ESSENTIAL (PRIMARY) HYPERTENSION (8) Lactic acidosis Code(s): E87.2 - ACIDOSIS (9) Pneumonia, aspiration Code(s): J69.0 - PNEUMONITIS DUE TO INHALATION OF FOOD AND VOMIT (10) SOB (shortness of breath) Code(s): R06.02 - SHORTNESS OF BREATH (11) Stroke Code(s): I63.9 - CEREBRAL INFARCTION, UNSPECIFIED Assessment/Plan The patient is a 74 year old female with a significant past medical history of CVA, ESRD (on HD, normal session yesterday) LBBB who presents to the emergency departmentwith dislogrd PEG tube. The patient was admitted 01/13-03/05 for unresponsiveness for two days and was found to have a large, progressing MCA stroke.Positive TNIs Plan; ABX DVT PLX Ventilatory support Condition guarded.
[2020-03-10 09:57] LABS: HEMATOCRIT 24.1 % (32.4-45.2); HEMOGLOBIN 7.7 GM/dL (10.7-15.3); MCH 29.4 pg (25.7-33.7); MCHC 31.8 g/dl (32.0-36.0); MEAN CELL VOLUME 92.4 fl (80-96); MEAN PLT VOLUME 11.2 fl (7.5-11.1); PLATELET COUNT 145 K/MM3 (134-434); RDW 19.9 % (11.6-15.6); WHITE BLOOD COUNT 28.8 K/mm3 (4.0-10.0)
[2020-03-10 10:24] LABS: BLOOD UREA NITROGEN 44.6 mg/dL (7-18); CALCIUM 8.2 mg/dL (8.5-10.1); CREATININE 1.8 mg/dL (0.55-1.3)
[2020-03-10 10:28] LABS: POTASSIUM 2.8 mmol/L (3.5-5.1)
[2020-03-10] MEDS ORDERED: KCL 10 MEQ IVPB 10 MEQ/100 ML INFUS.BAG IVPB SCH (10:45)
--- NOTE | 2020-03-10 11:18 | PN ---
Progress Note (short form) - Note Progress Note: unresponsive on vent grimaces when touched Vital Signs - 24 hr 03/09/20 03/09/20 03/09/20 12:05 12:55 13:00 Temperature 97.4 F L Pulse Rate 68 68 Respiratory 24 H 16 16 Rate Blood Pressure 83/50 L 83/50 L O2 Sat by Pulse Oximetry (%) 03/09/20 03/09/20 03/09/20 13:30 14:00 14:30 Temperature Pulse Rate 60 58 L 63 Respiratory 16 16 18 Rate Blood Pressure 93/57 L 76/74 L 72/45 L O2 Sat by Pulse Oximetry (%) 03/09/20 03/09/20 03/09/20 15:00 15:15 15:30 Temperature Pulse Rate 59 L 60 Respiratory 18 28 H 18 Rate Blood Pressure 75/45 L 82/54 L O2 Sat by Pulse Oximetry (%) 03/09/20 03/09/20 03/09/20 16:00 16:31 17:00 Temperature Pulse Rate 62 62 104 H Respiratory 18 18 22 H Rate Blood Pressure 82/50 L 94/56 L 86/58 L O2 Sat by Pulse Oximetry (%) 03/09/20 03/09/20 03/09/20 19:00 20:50 21:00 Temperature Pulse Rate 112 H Respiratory 24 H 14 24 H Rate Blood Pressure 109/56 L O2 Sat by Pulse 97 Oximetry (%) 03/09/20 03/10/20 03/10/20 22:00 00:53 02:00 Temperature 99.1 F 97.8 F Pulse Rate 93 H 104 H Respiratory 28 H 19 24 H Rate Blood Pressure 102/67 116/97 O2 Sat by Pulse 93 L Oximetry (%) 03/10/20 03/10/20 03/10/20 05:24 05:51 08:37 Temperature 99.2 F Pulse Rate 109 H Respiratory 20 14 18 Rate Blood Pressure 160/87 O2 Sat by Pulse Oximetry (%) Current Medications Generic Name Dose Route Start Last Admin Trade Name Freq PRN Reason Stop Dose Admin Acetylcysteine 200 mg 03/09/20 08:00 03/10/20 08:36 Mucomyst 20 Oral / Inh Use Only* NEB 200 mg RQID JOSE Administration Albuterol Sulfate 1 amp 03/09/20 00:15 03/10/20 08:37 Ventolin 0.083% Nebulizer Soln - NEB 1 amp Q6H PRN Administration SHORT OF BREATH/WHEEZING Banana Based Medical Food 1 packet 03/10/20 14:00 Banatrol Plus Powder Packet PO DAILY JOSE Piperacillin Sod/Tazobactam 50 mls @ 100 mls/hr 03/08/20 18:00 03/10/20 01:04 Sod 2.25 gm/ Dextrose IVPB 100 mls/hr Q8H-IV JOSE Administration Protocol Potassium Chloride 10 meq in 100 mls @ 100 mls/hr 03/10/20 10:45 Potassium Chloride 10 Meq Premix Ivpb - IVPB 03/10/20 11:44 Q60M JOSE Insulin Aspart 1 vial 03/09/20 06:00 03/10/20 05:47 Novolog Vial Sliding Scale - SQ Not Given Q6H JOSE Protocol Insulin Detemir 10 units 03/08/20 22:00 03/09/20 21:41 Levemir Vial SQ 10 units HS JOSE Administration Laboratory Results - last 24 hr 03/09/20 03/09/20 03/09/20 11:53 13:00 13:00 WBC RBC Hgb Hct MCV MCH MCHC RDW Plt Count MPV Absolute Neuts (auto) Neutrophils % Neutrophils % (Manual) Band Neutrophils % Lymphocytes % Lymphocytes % (Manual) Monocytes % Monocytes % (Manual) Eosinophils % Eosinophils % (Manual) Basophils % Basophils % (Manual) Myelocytes % (Man) Promyelocytes % (Man) Blast Cells % (Manual) Nucleated RBC % Metamyelocytes Hypochromia Platelet Estimate Platelet Comment Polychromasia Poikilocytosis Anisocytosis Microcytosis Macrocytosis Ovalocytes Helmet Cells Andrea Cells PT with INR INR PTT (Actin FS) Sodium Potassium Chloride Carbon Dioxide Anion Gap BUN Creatinine Est GFR (CKD-EPI)AfAm Est GFR (CKD-EPI)NonAf POC Glucometer 322 Random Glucose Lactic Acid 3.8 H* Calcium Phosphorus Magnesium Total Bilirubin AST ALT Alkaline Phosphatase Creatine Kinase Troponin I Total Protein Albumin Random Vancomycin 30.7 H* 03/09/20 03/09/20 03/09/20 13:00 13:00 13:00 WBC 32.3 H* RBC 2.34 L Hgb 7.0 L Hct 22.2 L MCV 95.2 MCH 30.1 MCHC 31.6 L RDW 20.1 H Plt Count 173 MPV 11.3 H Absolute Neuts (auto) 31.3 H Neutrophils % 97.0 H Neutrophils % (Manual) 87.0 H Band Neutrophils % 10.0 Lymphocytes % 1.4 L Lymphocytes % (Manual) 1.0 L D Monocytes % 1.4 L Monocytes % (Manual) 0 L D Eosinophils % 0.1 D Eosinophils % (Manual) 0.0 D Basophils % 0.1 Basophils % (Manual) 0.0 Myelocytes % (Man) 0 Promyelocytes % (Man) 0 Blast Cells % (Manual) 0 Nucleated RBC % 0 Metamyelocytes 0 Hypochromia 0 Platelet Estimate Normal Platelet Comment Present Polychromasia 1+ Poikilocytosis 1+ Anisocytosis 2+ Microcytosis 1+ Macrocytosis 1+ Ovalocytes 1+ Helmet Cells 1+ Andrea Cells 1+ PT with INR 17.90 H INR 1.51 H PTT (Actin FS) 39.9 H Sodium 139 Potassium 2.8 L* Chloride 103 Carbon Dioxide 17 L Anion Gap 19 H BUN 65.4 H Creatinine 2.6 H Est GFR (CKD-EPI)AfAm 19.96 Est GFR (CKD-EPI)NonAf 17.22 POC Glucometer Random Glucose 345 H Lactic Acid Calcium 7.7 L Phosphorus 2.6 Magnesium 2.0 Total Bilirubin 0.3 AST 12 L ALT 13 Alkaline Phosphatase 276 H Creatine Kinase Troponin I 2.63 H* Total Protein 4.6 L Albumin 1.1 L Random Vancomycin 03/09/20 03/09/20 03/10/20 17:17 21:34 01:01 WBC RBC Hgb Hct MCV MCH MCHC RDW Plt Count MPV Absolute Neuts (auto) Neutrophils % Neutrophils % (Manual) Band Neutrophils % Lymphocytes % Lymphocytes % (Manual) Monocytes % Monocytes % (Manual) Eosinophils % Eosinophils % (Manual) Basophils % Basophils % (Manual) Myelocytes % (Man) Promyelocytes % (Man) Blast Cells % (Manual) Nucleated RBC % Metamyelocytes Hypochromia Platelet Estimate Platelet Comment Polychromasia Poikilocytosis Anisocytosis Microcytosis Macrocytosis Ovalocytes Helmet Cells [place] Cells PT with INR INR PTT (Actin FS) Sodium Potassium Chloride Carbon Dioxide Anion Gap BUN Creatinine Est GFR (CKD-EPI)AfAm Est GFR (CKD-EPI)NonAf POC Glucometer 248 170 127 Random Glucose Lactic Acid Calcium Phosphorus Magnesium Total Bilirubin AST ALT Alkaline Phosphatase Creatine Kinase Troponin I Total Protein Albumin Random Vancomycin 03/10/20 03/10/20 03/10/20 05:43 09:07 09:07 WBC 28.8 H RBC 2.60 L Hgb 7.7 L Hct 24.1 L MCV 92.4 MCH 29.4 MCHC 31.8 L RDW 19.9 H Plt Count 145 MPV 11.2 H Absolute Neuts (auto) Neutrophils % Neutrophils % (Manual) Band Neutrophils % Lymphocytes % Lymphocytes % (Manual) Monocytes % Monocytes % (Manual) Eosinophils % Eosinophils % (Manual) Basophils % Basophils % (Manual) Myelocytes % (Man) Promyelocytes % (Man) Blast Cells % (Manual) Nucleated RBC % Metamyelocytes Hypochromia Platelet Estimate Platelet Comment Polychromasia Poikilocytosis Anisocytosis Microcytosis Macrocytosis Ovalocytes Helmet Cells Andrea Cells PT with INR INR PTT (Actin FS) Sodium 143 Potassium 2.8 L* Chloride 107 Carbon Dioxide 24 Anion Gap 13 BUN 44.6 H Creatinine 1.8 H Est GFR (CKD-EPI)AfAm 31.14 Est GFR (CKD-EPI)NonAf 26.87 POC Glucometer 128 Random Glucose 157 H Lactic Acid Calcium 8.2 L Phosphorus Magnesium Total Bilirubin AST ALT Alkaline Phosphatase Creatine Kinase 45 Troponin I 2.64 H* Total Protein Albumin Random Vancomycin S1 S2 RRR Lungs decreased Abd- soft, NT GT+ edema++ anasarca PLAN cardiac enzymes same-- demand ischemia due to sepsis vitals stable so far on antibiotics call for palliative care eval not a candidate for weaning due to unresponsive state poor prognosis replace potassium could not remove fluid yesterday at HD due to low BP Problem List - Problems (1) Unresponsiveness Code(s): R41.89 - OTH SYMPTOMS AND SIGNS W COGNITIVE FUNCTIONS AND AWARENESS (2) Sepsis Code(s): A41.9 - SEPSIS, UNSPECIFIED ORGANISM Qualifiers: Sepsis type: sepsis due to unspecified organism Sepsis acute organ dysfunction status: unspecified Qualified Code(s): A41.9 - Sepsis, unspecified organism (3) ESRD on dialysis Code(s): N18.6 - END STAGE RENAL DISEASE; Z99.2 - DEPENDENCE ON RENAL DIALYSIS (4) Stroke Code(s): I63.9 - CEREBRAL INFARCTION, UNSPECIFIED
[2020-03-10] MEDS ORDERED: POTASSIUM CHLORIDE ORAL LIQUID 20 MEQ/15 ML GT ONE (11:42)
--- NOTE | 2020-03-10 12:18 | PN ---
Progress Note, Physician Chief Complaint: AMS History of Present Illness: Seen and examined at the bedside on vent via trach continues to have diarrhea pt remains unresponsive no fevers - Current Medication List Current Medications: Active Medications Acetylcysteine (Mucomyst 20 Oral / Inh Use Only*) 200 mg NEB RQID JOSE Last Admin: 03/10/20 12:10 Dose: 200 mg Documented by: Albuterol Sulfate (Ventolin 0.083% Nebulizer Soln -) 1 amp NEB Q6H PRN PRN Reason: SHORT OF BREATH/WHEEZING Last Admin: 03/10/20 12:10 Dose: 1 amp Documented by: Banana Based Medical Food (Banatrol Plus Powder Packet) 1 packet PO DAILY JOSE Piperacillin Sod/Tazobactam (Sod 2.25 gm/ Dextrose) 50 mls @ 100 mls/hr IVPB Q8H-IV JOSE; Protocol Last Admin: 03/10/20 11:25 Dose: 100 mls/hr Documented by: Insulin Aspart (Novolog Vial Sliding Scale -) 1 vial SQ Q6H JOSE; Protocol Last Admin: 03/10/20 05:47 Dose: Not Given Documented by: Insulin Detemir (Levemir Vial) 10 units SQ HS JOSE Last Admin: 03/09/20 21:41 Dose: 10 units Documented by: - Objective Vital Signs: Vital Signs Temperature 99.2 F 03/10/20 05:51 Pulse Rate 109 H 03/10/20 05:51 Respiratory Rate 20 03/10/20 12:10 Blood Pressure 160/87 03/10/20 05:51 O2 Sat by Pulse Oximetry (%) 93 L 03/10/20 02:00 Constitutional: Yes: No Distress Cardiovascular: Yes: Regular Rate and Rhythm Respiratory: Yes: Mechanically Ventilated Edema: No Labs: CBC, BMP 03/10/20 09:07 03/10/20 09:07 INR, PTT INR 1.51 (0.83-1.09) H 03/09/20 13:00 Assessment/Plan Impression ESRD S/P CVA chronic hypertension now hypotensive Elevated troponins Diarrhea Hypokalemia PLAN s/p dialysis yesterday Supplament potassium via IV and via GT repeat K this evenin next planned dialysis Wednesday Continue supportive care overall prognosis is poor. Raman Chowdhury DO
[2020-03-10] MEDS: BANATROL PLUS POWDER PACKET PO SCH (14:47)
[2020-03-10] MEDS: INSULIN (LEVEMIR) 100 UNITS/ML UNITS SQ SCH (23:02)
[2020-03-11] MEDS ORDERED: PIPERACILLIN/TAZOBACTAM 2.25 GM VIAL IVPB ONE ×3 (02:06→16:43)
[2020-03-11] MEDS ORDERED: DEXTROSE 5%-WATER - 50 ML IVPB ONE ×3 (02:06→16:44)
[2020-03-11] MEDS: PIPERACILLIN/TAZOB 2.25 GM 2.25 GM in DEXTROSE 5%-WATER - 50 ML IVPB SCH ×3 (02:28→17:47)
[2020-03-11] MEDS: INSULIN SLIDING SCALE (NOVOLOG) 1 VIAL SQ SCH ×4 (06:14→23:40)
[2020-03-11] MEDS: ACETYLCYSTEINE 20% 200MG/ML 4 ML VIAL *FOR ORAL / INH USE ONLY NEB SCH ×4 (08:39→20:25)
--- NOTE | 2020-03-11 09:07 | PN ---
Progress Note, Physician History of Present Illness: PULMONARY NO CHANGE EYES OPEN,UNRESPONSIVE ON VENT SUPPORT AC MODE - Current Medication List Current Medications: Active Medications Acetylcysteine (Mucomyst 20 Oral / Inh Use Only*) 200 mg NEB RQID JOSE Last Admin: 03/10/20 20:02 Dose: 200 mg Documented by: Albuterol Sulfate (Ventolin 0.083% Nebulizer Soln -) 1 amp NEB Q6H PRN PRN Reason: SHORT OF BREATH/WHEEZING Last Admin: 03/10/20 20:02 Dose: 1 amp Documented by: Banana Based Medical Food (Banatrol Plus Powder Packet) 1 packet PO DAILY JOSE Last Admin: 03/10/20 14:47 Dose: 1 packet Documented by: Piperacillin Sod/Tazobactam (Sod 2.25 gm/ Dextrose) 50 mls @ 100 mls/hr IVPB Q 8H-IV JOSE; Protocol Last Admin: 03/11/20 02:28 Dose: 100 mls/hr Documented by: Insulin Aspart (Novolog Vial Sliding Scale -) 1 vial SQ Q6H JOSE; Protocol Last Admin: 03/11/20 06:14 Dose: 4 unit Documented by: Insulin Detemir (Levemir Vial) 10 units SQ HS JOSE Last Admin: 03/10/20 23:02 Dose: 10 units Documented by: - Objective Vital Signs: Vital Signs Temperature 98.8 F 03/11/20 05:52 Pulse Rate 115 H 03/11/20 05:52 Respiratory Rate 18 03/11/20 05:52 Blood Pressure 100/54 L 03/11/20 05:52 O2 Sat by Pulse Oximetry (%) 93 L 03/10/20 20:01 Constitutional: Yes: Other (UNRESPONSIVE) Eyes: Yes: WNL HENT: Yes: WNL Neck: Yes: Supple (TRACH) Cardiovascular: Yes: Regular Rate and Rhythm, S1, S2 Respiratory: Yes: Rhonchi (FEW RHONCHI) Gastrointestinal: Yes: Normal Bowel Sounds, Soft Extremities: Yes: WNL Edema: Yes Labs: CBC, BMP Assessment/Plan ASSESSMENT AND PLAN: Chronic Respiratory Failure Dislodged PEG tube s/p replacement r/o Pneumonia Sepsis HTN Hyperlipidemia ckd + troponin - continue antibiotics - HD per renal - FiO2 to keep SpO2 >90% - continue volume assist control - not a candidate for weaning due to poor mental status - enteral feeds - DVT prophylaxis -monitor lytes,renal function,cbc - DR RAMIREZ
[2020-03-11 09:27] LABS: BLOOD UREA NITROGEN 56.6 mg/dL (7-18); CALCIUM 8.4 mg/dL (8.5-10.1); CREATININE 2.2 mg/dL (0.55-1.3); POTASSIUM 3.5 mmol/L (3.5-5.1)
[2020-03-11] MEDS: ALBUTEROL SO4 0.083% IH SOL 2.5 MG/3 ML VIAL.NEB. NEB PRN ×4 (09:39→20:25)
--- NOTE | 2020-03-11 09:59 | PN ---
Progress Note, Physician History of Present Illness: The patient is a 74 year old female with a significant past medical history of CVA, ESRD (on HD, normal session yesterday) who presents to the emergency department, from [facility], for evaluation of a dislodged PEG tube 3.5 hours ago, per [facility]. Upon arrival of EMS, it was discovered the patient is tachycardic and hypotensive, currently 96/81. The patient is nonverbal at baseline. The patient was admitted 01/13-03/05 for unresponsiveness for two days and was found to have a large, progressing MCA stroke. - Current Medication List Current Medications: Active Medications Acetylcysteine (Mucomyst 20 Oral / Inh Use Only*) 200 mg NEB RQID JOSE Last Admin: 03/11/20 08:39 Dose: 200 mg Documented by: Albuterol Sulfate (Ventolin 0.083% Nebulizer Soln -) 1 amp NEB Q6H PRN PRN Reason: SHORT OF BREATH/WHEEZING Last Admin: 03/11/20 09:39 Dose: 1 amp Documented by: Banana Based Medical Food (Banatrol Plus Powder Packet) 1 packet PO DAILY JOSE Last Admin: 03/10/20 14:47 Dose: 1 packet Documented by: Piperacillin Sod/Tazobactam (Sod 2.25 gm/ Dextrose) 50 mls @ 100 mls/hr IVPB Q8H-IV JOSE; Protocol Last Admin: 03/11/20 02:28 Dose: 100 mls/hr Documented by: Insulin Aspart (Novolog Vial Sliding Scale -) 1 vial SQ Q6H JOSE; Protocol Last Admin: 03/11/20 06:14 Dose: 4 unit Documented by: Insulin Detemir (Levemir Vial) 10 units SQ HS JOSE Last Admin: 03/10/20 23:02 Dose: 10 units Documented by: - Objective Vital Signs: Vital Signs Temperature 98.8 F 03/11/20 05:52 Pulse Rate 115 H 03/11/20 05:52 Respiratory Rate 32 H 03/11/20 08:40 Blood Pressure 100/54 L 03/11/20 05:52 O2 Sat by Pulse Oximetry (%) 93 L 03/10/20 20:01 Eyes: Yes: WNL, Conjunctiva Clear, EOM Intact HENT: Yes: WNL, Atraumatic, Normocephalic Neck: Yes: WNL, Supple, Trachea Midline Cardiovascular: Yes: WNL, Regular Rate and Rhythm Respiratory: Yes: Diminished, Intubated, Mechanically Ventilated Gastrointestinal: Yes: WNL, Normal Bowel Sounds Genitourinary: Yes: WNL Musculoskeletal: Yes: WNL Extremities: Yes: WNL Edema: No Integumentary: Yes: WNL Labs: CBC, BMP 03/10/20 09:07 03/11/20 08:30 INR, PTT INR 1.51 (0.83-1.09) H 03/09/20 13:00 Problem List - Problems (1) Sepsis Code(s): A41.9 - SEPSIS, UNSPECIFIED ORGANISM Qualifiers: Sepsis type: sepsis due to unspecified organism Sepsis acute organ dysfunction status: unspecified Qualified Code(s): A41.9 - Sepsis, unspecified organism (2) Altered mental status Code(s): R41.82 - ALTERED MENTAL STATUS, UNSPECIFIED (3) Anemia Code(s): D64.9 - ANEMIA, UNSPECIFIED (4) Clotted dialysis access Code(s): T82.49XA - OTH COMPLICATION OF VASCULAR DIALYSIS CATHETER, INIT ENCNTR (5) Diabetes Code(s): E11.9 - TYPE 2 DIABETES MELLITUS WITHOUT COMPLICATIONS (6) ESRD on dialysis Code(s): N18.6 - END STAGE RENAL DISEASE; Z99.2 - DEPENDENCE ON RENAL DIALYSIS (7) Hypertension Code(s): I10 - ESSENTIAL (PRIMARY) HYPERTENSION (8) Lactic acidosis Code(s): E87.2 - ACIDOSIS (9) Pneumonia, aspiration Code(s): J69.0 - PNEUMONITIS DUE TO INHALATION OF FOOD AND VOMIT (10) SOB (shortness of breath) Code(s): R06.02 - SHORTNESS OF BREATH (11) Stroke Code(s): I63.9 - CEREBRAL INFARCTION, UNSPECIFIED Assessment/Plan The patient is a 74 year old female with a significant past medical history of CVA, ESRD (on HD, normal session yesterday) LBBB who presents to the emergency departmentwith dislogrd PEG tube. The patient was admitted 01/13-03/05 for unresponsiveness for two days and was found to have a large, progressing MCA stroke.Positive TNIs Plan; ABX DVT PLX Ventilatory support Condition guarded.
[2020-03-11] MEDS ORDERED: PT OWN MED DRAWER 7, Y5N ONE ×2 (10:18→11:04)
--- NOTE | 2020-03-11 10:18 | PN ---
Progress Note (short form) - Note Progress Note: RENAL now in medsurg floor unresponsive Last Vital Signs Temp Pulse Resp BP Pulse Ox 98.8 F 115 H 32 H 100/54 L 93 L 03/11/20 05:52 03/11/20 05:52 03/11/20 08:40 03/11/20 05:52 03/10/20 20:01 lungs clear bilat cvs s1s2 rr abd soft ext has upper extremity edema neuro not responsive, eyes fully open CBC, BMP 03/10/20 09:07 03/11/20 08:30 Current Medications Generic Name Dose Route Start Last Admin Trade Name Freq PRN Reason Stop Dose Admin Acetylcysteine 200 mg 03/09/20 08:00 03/11/20 08:39 Mucomyst 20 Oral / Inh Use Only* NEB 200 mg RQID JOSE Administration Albuterol Sulfate 1 amp 03/09/20 00:15 03/11/20 09:39 Ventolin 0.083% Nebulizer Soln - NEB 1 amp Q6H PRN Administration SHORT OF BREATH/WHEEZING Banana Based Medical Food 1 packet 03/10/20 14:00 03/10/20 14:47 Banatrol Plus Powder Packet PO 1 packet DAILY JOSE Administration Piperacillin Sod/Tazobactam 50 mls @ 100 mls/hr 03/08/20 18:00 03/11/20 02:28 Sod 2.25 gm/ Dextrose IVPB 100 mls/hr Q8H-IV JOSE Administration Protocol Insulin Aspart 1 vial 03/09/20 06:00 03/11/20 06:14 Novolog Vial Sliding Scale - SQ 4 unit Q6H JOSE Administration Protocol Insulin Detemir 10 units 03/08/20 22:00 03/10/20 23:02 Levemir Vial SQ 10 units HS JOSE Administration I Impression ESRD S/P CVA chronic hypertension now hypotensive ?new onset dm PLAN will dialyze write orders for tomorrow continue insulin antibiotics per ID MV
[2020-03-11] MEDS: BANATROL PLUS POWDER PACKET PO SCH (11:09)
--- NOTE | 2020-03-11 13:13 | PN ---
Progress Note (short form) - Note Progress Note: unresponsive on vent grimaces when touched Vital Signs - 24 hr 03/10/20 03/10/20 03/10/20 14:00 16:30 18:00 Temperature 99.4 F 98.8 F Pulse Rate 120 H Respiratory 18 21 H 20 Rate Blood Pressure 115/59 L 102/54 L O2 Sat by Pulse Oximetry (%) 03/10/20 03/10/20 03/10/20 20:01 21:00 22:00 Temperature 99 F Pulse Rate 128 H Respiratory 24 H 18 18 Rate Blood Pressure 90/50 L O2 Sat by Pulse 93 L Oximetry (%) 03/11/20 03/11/20 03/11/20 00:21 02:00 04:31 Temperature 98.0 F Pulse Rate 113 H Respiratory 20 18 14 Rate Blood Pressure 113/51 L O2 Sat by Pulse Oximetry (%) 03/11/20 03/11/20 03/11/20 05:52 08:40 09:00 Temperature 98.8 F 98.6 F Pulse Rate 115 H 111 H Respiratory 18 32 H 24 H Rate Blood Pressure 100/54 L 110/77 O2 Sat by Pulse Oximetry (%) Current Medications Generic Name Dose Route Start Last Admin Trade Name Freq PRN Reason Stop Dose Admin Acetylcysteine 200 mg 03/09/20 08:00 03/11/20 08:39 Mucomyst 20 Oral / Inh Use Only* NEB 200 mg RQID JOSE Administration Albuterol Sulfate 1 amp 03/09/20 00:15 03/11/20 09:39 Ventolin 0.083% Nebulizer Soln - NEB 1 amp Q6H PRN Administration SHORT OF BREATH/WHEEZING Banana Based Medical Food 1 packet 03/10/20 14:00 03/11/20 11:09 Banatrol Plus Powder Packet PO 1 packet DAILY JOSE Administration Piperacillin Sod/Tazobactam 50 mls @ 100 mls/hr 03/08/20 18:00 03/11/20 11:09 Sod 2.25 gm/ Dextrose IVPB 100 mls/hr Q8H-IV JOSE Administration Protocol Sodium Chloride 250 mls @ 3,000 mls/hr 03/11/20 10:18 Normal Saline - IV 03/12/20 10:18 PRN PRN Hypotension during Dialysis Insulin Aspart 1 vial 03/09/20 06:00 03/11/20 11:45 Novolog Vial Sliding Scale - SQ 2 unit Q6H JOSE Administration Protocol Insulin Detemir 10 units 03/08/20 22:00 03/10/20 23:02 Levemir Vial SQ 10 units HS JOSE Administration Laboratory Results - last 24 hr 03/10/20 03/10/20 03/11/20 17:12 22:57 06:11 Sodium Potassium Chloride Carbon Dioxide Anion Gap BUN Creatinine Est GFR (CKD-EPI)AfAm Est GFR (CKD-EPI)NonAf POC Glucometer 231 240 206 Random Glucose Calcium 03/11/20 03/11/20 08:30 11:42 Sodium 142 Potassium 3.5 Chloride 106 Carbon Dioxide 21 Anion Gap 15 BUN 56.6 H Creatinine 2.2 H Est GFR (CKD-EPI)AfAm 24.43 Est GFR (CKD-EPI)NonAf 21.08 POC Glucometer 156 Random Glucose 207 H Calcium 8.4 L S1 S2 RRR Lungs decreased Abd- soft, NT GT+ edema++ anasarca PLAN cardiac enzymes flat-- demand ischemia due to sepsis vitals stable so far on antibiotics call for palliative care eval not a candidate for weaning due to unresponsive state poor prognosis HD as per renal Problem List - Problems (1) Unresponsiveness Code(s): R41.89 - OTH SYMPTOMS AND SIGNS W COGNITIVE FUNCTIONS AND AWARENESS (2) Sepsis Code(s): A41.9 - SEPSIS, UNSPECIFIED ORGANISM Qualifiers: Sepsis type: sepsis due to unspecified organism Sepsis acute organ dysfunction status: unspecified Qualified Code(s): A41.9 - Sepsis, unspecified organism (3) ESRD on dialysis Code(s): N18.6 - END STAGE RENAL DISEASE; Z99.2 - DEPENDENCE ON RENAL DIALYSIS (4) Stroke Code(s): I63.9 - CEREBRAL INFARCTION, UNSPECIFIED
[2020-03-11] MEDS: INSULIN (LEVEMIR) 100 UNITS/ML UNITS SQ SCH (23:40)
[2020-03-12] MEDS ORDERED: PIPERACILLIN/TAZOBACTAM 2.25 GM VIAL IVPB ONE ×2 (01:43→12:36)
[2020-03-12] MEDS ORDERED: DEXTROSE 5%-WATER - 50 ML IVPB ONE ×2 (01:43→12:37)
[2020-03-12] MEDS: PIPERACILLIN/TAZOB 2.25 GM 2.25 GM in DEXTROSE 5%-WATER - 50 ML IVPB SCH ×2 (02:45→13:35)
[2020-03-12] MEDS: INSULIN SLIDING SCALE (NOVOLOG) 1 VIAL SQ SCH ×4 (06:33→23:12)
[2020-03-12] MEDS: ACETYLCYSTEINE 20% 200MG/ML 4 ML VIAL *FOR ORAL / INH USE ONLY NEB SCH ×4 (07:25→21:17)
[2020-03-12] MEDS: ALBUTEROL SO4 0.083% IH SOL 2.5 MG/3 ML VIAL.NEB. NEB PRN ×3 (07:25→21:17)
--- NOTE | 2020-03-12 07:51 | PN ---
Progress Note, Physician History of Present Illness: pulmonary no change unresponsive on vent support ac mode,currently on HD - Current Medication List Current Medications: Active Medications Acetylcysteine (Mucomyst 20 Oral / Inh Use Only*) 200 mg NEB RQID JOSE Last Admin: 03/11/20 20:25 Dose: 200 mg Documented by: Albuterol Sulfate (Ventolin 0.083% Nebulizer Soln -) 1 amp NEB Q6H PRN PRN Reason: SHORT OF BREATH/WHEEZING Last Admin: 03/11/20 20:25 Dose: 1 amp Documented by: Banana Based Medical Food (Banatrol Plus Powder Packet) 1 packet PO DAILY JOSE Last Admin: 03/11/20 11:09 Dose: 1 packet Documented by: Piperacillin Sod/Tazobactam (Sod 2.25 gm/ Dextrose) 50 mls @ 100 mls/hr IVPB Q8H-IV JOSE; Protocol Last Admin: 03/12/20 02:45 Dose: 100 mls/hr Documented by: Sodium Chloride (Normal Saline -) 250 mls @ 3,000 mls/hr IV PRN PRN PRN Reason: Hypotension during Dialysis Stop: 03/12/20 10:18 Insulin Aspart (Novolog Vial Sliding Scale -) 1 vial SQ Q6H JOSE; Protocol Last Admin: 03/12/20 06:33 Dose: 4 unit Documented by: Insulin Detemir (Levemir Vial) 10 units SQ HS [facility] Last Admin: 03/11/20 23:40 Dose: 10 units Documented by: - Objective Vital Signs: Vital Signs Temperature 98.3 F 03/12/20 06:00 Pulse Rate 109 H 03/12/20 06:00 Respiratory Rate 18 03/12/20 06:00 Blood Pressure 131/61 03/12/20 06:00 O2 Sat by Pulse Oximetry (%) 81 L 03/12/20 06:00 Constitutional: Yes: Thin, Other (unresponsive) Eyes: Yes: WNL HENT: Yes: WNL Neck: Yes: Supple (trach) Cardiovascular: Yes: Regular Rate and Rhythm, S1, S2 Respiratory: Yes: Diminished Gastrointestinal: Yes: Normal Bowel Sounds, Soft Extremities: Yes: WNL Edema: Yes (upper ext) Labs: CBC, BMP 03/10/20 09:07 03/11/20 08:30 INR, PTT INR 1.51 (0.83-1.09) H 03/09/20 13:00 Laboratory Tests 03/12/20 03/12/20 07:35 07:35 Hgb 6.7 L* Hct 20.6 L Plt Count 87 L D BUN 73.8 H Creatinine 2.4 H Assessment/Plan ASSESSMENT AND PLAN: Chronic Respiratory Failure Dislodged PEG tube s/p replacement r/o Pneumonia Sepsis HTN Hyperlipidemia ckd + troponin Anemia/thrombocytopenia - continue antibiotics - HD per renal - FiO2 to keep SpO2 >90% - continue volume assist control - not a candidate for weaning due to poor mental status - enteral feeds - DVT prophylaxis -monitor lytes,renal function,cbc - normal transfusion threshold - DR RAMIREZ
[2020-03-12 08:15] LABS: BASO % 0.5 % (0-2.0); EOS % 0.9 % (0-4.5); HEMATOCRIT 20.6 % (32.4-45.2); MCH 30.8 pg (25.7-33.7); MCHC 32.8 g/dl (32.0-36.0); MEAN CELL VOLUME 94.1 fl (80-96); NEUT % 89.6 % (42.8-82.8); PLATELET COUNT 87 K/MM3 (134-434); RBC 2.19 M/mm3 (3.60-5.2); RDW 19.7 % (11.6-15.6); WHITE BLOOD COUNT 8.9 K/mm3 (4.0-10.0)
[2020-03-12 08:44] LABS: BILIRUBIN,TOTAL 0.5 mg/dL (0.2-1); BLOOD UREA NITROGEN 73.8 mg/dL (7-18); CALCIUM 7.8 mg/dL (8.5-10.1); CREATININE 2.4 mg/dL (0.55-1.3); TOT PROT 4.7 g/dl (6.4-8.2)
[2020-03-12 08:51] LABS: HEMOGLOBIN 6.7 GM/dL (10.7-15.3)
[2020-03-12] MEDS ORDERED: SODIUM CHLORIDE 250 ML IV PRN (10:18)
--- NOTE | 2020-03-12 12:35 | PN ---
Progress Note (short form) - Note Progress Note: unresponsive on vent grimaces when touched Vital Signs - 24 hr 03/11/20 03/11/20 03/11/20 12:55 13:00 17:09 Temperature 99.5 F Pulse Rate 101 H Respiratory 22 H 22 H 14 Rate Blood Pressure 112/71 O2 Sat by Pulse 100 Oximetry (%) 03/11/20 03/11/20 03/11/20 18:00 20:46 21:00 Temperature 98.8 F Pulse Rate 108 H Respiratory 20 20 18 Rate Blood Pressure 119/54 L O2 Sat by Pulse 99 Oximetry (%) 03/11/20 03/12/20 03/12/20 22:00 00:40 02:00 Temperature 98.9 F 98.0 F Pulse Rate 115 H 110 H Respiratory 18 18 18 Rate Blood Pressure 98/70 93/64 O2 Sat by Pulse 100 99 Oximetry (%) 03/12/20 03/12/20 03/12/20 05:00 06:00 07:20 Temperature 98.3 F Pulse Rate 109 H 104 H Respiratory 18 18 14 Rate Blood Pressure 131/61 94/52 L O2 Sat by Pulse 81 L Oximetry (%) 03/12/20 03/12/20 03/12/20 07:30 08:00 08:30 Temperature 97.8 F Pulse Rate 102 H 102 H 100 H Respiratory 14 14 14 Rate Blood Pressure 99/45 L 90/45 L 88/45 L O2 Sat by Pulse 95 Oximetry (%) 03/12/20 03/12/20 03/12/20 09:00 09:30 10:00 Temperature Pulse Rate 102 H 111 H 112 H Respiratory 14 14 14 Rate Blood Pressure 89/40 L 88/67 L 94/54 L O2 Sat by Pulse Oximetry (%) 03/12/20 03/12/20 03/12/20 10:30 11:00 11:20 Temperature Pulse Rate 61 60 Respiratory 14 14 25 H Rate Blood Pressure 85/47 L 90/45 L O2 Sat by Pulse Oximetry (%) 03/12/20 11:23 Temperature Pulse Rate 100 H Respiratory 14 Rate Blood Pressure 98/56 L O2 Sat by Pulse Oximetry (%) Current Medications Generic Name Dose Route Start Last Admin Trade Name Freq PRN Reason Stop Dose Admin Acetylcysteine 200 mg 03/09/20 08:00 03/12/20 11:20 Mucomyst 20 Oral / Inh Use Only* NEB 200 mg RQID JOSE Administration Albuterol Sulfate 1 amp 03/09/20 00:15 03/12/20 07:25 Ventolin 0.083% Nebulizer Soln - NEB 1 amp Q6H PRN Administration SHORT OF BREATH/WHEEZING Banana Based Medical Food 1 packet 03/10/20 14:00 03/11/20 11:09 Banatrol Plus Powder Packet PO 1 packet DAILY JOSE Administration Piperacillin Sod/Tazobactam 50 mls @ 100 mls/hr 03/08/20 18:00 03/12/20 02:45 Sod 2.25 gm/ Dextrose IVPB 100 mls/hr Q8H-IV JOSE Administration Protocol Sodium Chloride 250 mls @ 3,000 mls/hr 03/12/20 10:18 Normal Saline - IV 03/13/20 10:17 PRN PRN Hypotension during Dialysis Insulin Aspart 1 vial 03/09/20 06:00 03/12/20 06:33 Novolog Vial Sliding Scale - SQ 4 unit Q6H JOSE Administration Protocol Insulin Detemir 10 units 03/08/20 22:00 03/11/20 23:40 Levemir Vial SQ 10 units HS JOSE Administration Laboratory Results - last 24 hr 03/11/20 03/11/20 03/12/20 17:54 23:37 06:07 WBC RBC Hgb Hct MCV MCH MCHC RDW Plt Count MPV Absolute Neuts (auto) Neutrophils % Lymphocytes % Monocytes % Eosinophils % Basophils % Nucleated RBC % Sodium Potassium Chloride Carbon Dioxide Anion Gap BUN Creatinine Est GFR (CKD-EPI)AfAm Est GFR (CKD-EPI)NonAf POC Glucometer 186 230 206 Random Glucose Calcium Total Bilirubin AST ALT Alkaline Phosphatase Total Protein Albumin Blood Type Antibody Screen Crossmatch 03/12/20 03/12/20 03/12/20 07:35 07:35 09:10 WBC 8.9 RBC 2.19 L Hgb 6.7 L* Hct 20.6 L MCV 94.1 MCH 30.8 MCHC 32.8 RDW 19.7 H Plt Count 87 L D MPV 12.0 H Absolute Neuts (auto) 8.0 Neutrophils % 89.6 H Lymphocytes % 5.0 L D Monocytes % 4.0 D Eosinophils % 0.9 D Basophils % 0.5 D Nucleated RBC % 0 Sodium 144 Potassium 3.0 L Chloride 109 H Carbon Dioxide 20 L Anion Gap 15 BUN 73.8 H Creatinine 2.4 H Est GFR (CKD-EPI)AfAm 21.99 Est GFR (CKD-EPI)NonAf 18.97 POC Glucometer Random Glucose 214 H Calcium 7.8 L Total Bilirubin 0.5 AST 18 ALT 15 Alkaline Phosphatase 438 H Total Protein 4.7 L Albumin 1.0 L Blood Type O POSITIVE Antibody Screen Negative Crossmatch See Detail S1 S2 RRR Lungs decreased Abd- soft, NT GT+ edema++ anasarca PLAN cardiac enzymes flat-- demand ischemia due to sepsis vitals -- BP low for transfusion today on antibiotics call for palliative care eval not a candidate for weaning due to unresponsive state poor prognosis HD as per renal Problem List - Problems (1) Unresponsiveness Code(s): R41.89 - OTH SYMPTOMS AND SIGNS W COGNITIVE FUNCTIONS AND AWARENESS (2) Sepsis Code(s): A41.9 - SEPSIS, UNSPECIFIED ORGANISM Qualifiers: Sepsis type: sepsis due to unspecified organism Sepsis acute organ dysfunction status: unspecified Qualified Code(s): A41.9 - Sepsis, unspecified organism (3) ESRD on dialysis Code(s): N18.6 - END STAGE RENAL DISEASE; Z99.2 - DEPENDENCE ON RENAL DIALYSIS (4) Stroke Code(s): I63.9 - CEREBRAL INFARCTION, UNSPECIFIED
[2020-03-12 12:51] LABS: ANISOCYTOSIS 0; MACROCYTOSIS 0; PLATELET ESTIMATE DECREASED
[2020-03-12] MEDS: BANATROL PLUS POWDER PACKET PO SCH (15:00)
--- NOTE | 2020-03-12 15:00 | PN ---
Progress Note (short form) - Note Progress Note: RENAL now in medsurg floor unresponsive Last Vital Signs Temp Pulse Resp BP Pulse Ox 97.8 F 100 H 14 98/56 L 95 03/12/20 07:30 03/12/20 11:23 03/12/20 11:23 03/12/20 11:23 03/12/20 07:30 lungs clear bilat cvs s1s2 rr abd soft ext has upper extremity edema neuro not responsive, eyes fully open CBC, BMP 03/12/20 07:35 03/12/20 07:35 Current Medications Generic Name Dose Route Start Last Admin Trade Name Freq PRN Reason Stop Dose Admin Acetylcysteine 200 mg 03/09/20 08:00 03/12/20 11:20 Mucomyst 20 Oral / Inh Use Only* NEB 200 mg RQID JOSE Administration Albuterol Sulfate 1 amp 03/09/20 00:15 03/12/20 07:25 Ventolin 0.083% Nebulizer Soln - NEB 1 amp Q6H PRN Administration SHORT OF BREATH/WHEEZING Banana Based Medical Food 1 packet 03/10/20 14:00 03/11/20 11:09 Banatrol Plus Powder Packet PO 1 packet DAILY JOSE Administration Piperacillin Sod/Tazobactam 50 mls @ 100 mls/hr 03/08/20 18:00 03/12/20 13:35 Sod 2.25 gm/ Dextrose IVPB 100 mls/hr Q8H-IV JOSE Administration Protocol Sodium Chloride 250 mls @ 3,000 mls/hr 03/12/20 10:18 Normal Saline - IV 03/13/20 10:17 PRN PRN Hypotension during Dialysis Insulin Aspart 1 vial 03/09/20 06:00 03/12/20 13:38 Novolog Vial Sliding Scale - SQ Not Given Q6H JOSE Protocol Insulin Detemir 10 units 03/08/20 22:00 03/11/20 23:40 Levemir Vial SQ 10 units HS JOSE Administration I Impression ESRD S/P CVA chronic hypertension now hypotensive ?new onset dm PLAN pt was transfused 1 uit for hgb of 6.7 continue insulin antibiotics per ID poor prognosis MV
--- NOTE | 2020-03-12 16:25 | PN ---
Progress Note (short form) - Note Progress Note: unresponsive Vital Signs Period Temp Pulse Resp BP Sys/Ramirez Pulse Ox Last 24 Hr 97.8 F-98.9 F 60-115 14-25 85-131/40-70 81-100 cor-rrr lungs decreased bs at basesa trach to vent abd soft,nt unstageable sacral ulcer with eschar ext no edema CBC, BMP 03/12/20 07:35 03/12/20 07:35 Microbiology 03/07/20 15:03 Blood - Peripheral Venous Blood Culture - Final NO GROWTH AFTER 5 DAYS INCUBATION 03/07/20 15:03 Blood - Peripheral Venous Blood Culture - Final NO GROWTH AFTER 5 DAYS INCUBATION 03/08/20 00:30 Sputum - Endotrachea Suction/Ventilator Gram Stain - Final 03/08/20 00:30 Sputum - Endotrachea Suction/Ventilator Sputum Culture - Final Enterobacter Aerogenes Yeast Like Organism 03/08/20 05:00 Stool Clostridioides difficile Antigen - Final 03/08/20 05:00 Stool Clostridioides difficile Toxin Assay - Final a/p leukocytosis resolved- off steroids cxray improved, doubt pneumonia s/p transfusion will d/c zosyn MDRO enterobacter- will d/c zosyn s/p cva chronic resp failure overall prognosis is poor
[2020-03-12] MEDS: INSULIN (LEVEMIR) 100 UNITS/ML UNITS SQ SCH (23:12)
--- NOTE | 2020-03-13 00:28 | PN ---
Progress Note, Physician Chief Complaint: Pt grossly unresponsive to verbal or tactile stimuli. History of Present Illness: Ms. Mccormick is a 74 year old black woman with a past medical history of CVA, ESRD (on hemodialysis) who presents to the emergency department, from [facility], for evaluation of a dislodged PEG tube 3.5 hours ago, per [facility]. Upon arrival of EMS, it was discovered the patient was tachycardic and hypotensive, currently 96/81. The patient is nonverbal at baseline. The patient was admitted 01/13-03/05 for unresponsiveness for two days and was found to have a large, progressing MCA stroke. - Current Medication List Current Medications: Active Medications Acetylcysteine (Mucomyst 20 Oral / Inh Use Only*) 200 mg NEB RQID [facility] Last Admin: 03/12/20 21:17 Dose: 200 mg Documented by: Albuterol Sulfate (Ventolin 0.083% Nebulizer Soln -) 1 amp NEB Q6H PRN PRN Reason: SHORT OF BREATH/WHEEZING Last Admin: 03/12/20 21:17 Dose: 1 amp Documented by: Banana Based Medical Food (Banatrol Plus Powder Packet) 1 packet PO DAILY [facility] Last Admin: 03/12/20 15:00 Dose: 1 packet Documented by: Sodium Chloride (Normal Saline -) 250 mls @ 3,000 mls/hr IV PRN PRN PRN Reason: Hypotension during Dialysis Stop: 03/13/20 10:17 Insulin Aspart (Novolog Vial Sliding Scale -) 1 vial SQ Q6H [facility]; Protocol Last Admin: 03/12/20 23:12 Dose: 2 unit Documented by: Insulin Detemir (Levemir Vial) 10 units SQ [facility] Last Admin: 03/12/20 23:12 Dose: 10 units Documented by: - Objective Vital Signs: Vital Signs Temperature 98.8 F 03/12/20 21:27 Pulse Rate 117 H 03/12/20 21:27 Respiratory Rate 18 03/12/20 21:27 Blood Pressure 108/75 03/12/20 21:27 O2 Sat by Pulse Oximetry (%) 96 03/12/20 21:00 Constitutional: Yes: Thin Eyes: Yes: Conjunctiva Clear HENT: Yes: Other Neck: Yes: Decreased ROM Cardiovascular: Yes: Murmur (2/6 systolic murmur, LSB-->apex), S1, S2 (split) Respiratory: Yes: Diminished, Mechanically Ventilated, Rales Gastrointestinal: Yes: Soft Genitourinary: Yes: Other. No: Anuria Breast(s): Yes: WNL Musculoskeletal: Yes: Muscle Weakness Extremities: Yes: Cool Edema: Yes Edema: LUE: 1+, RUE: 1+, LLE: Trace, RLE: Trace Peripheral Pulses WNL: No Peripheral Pulses: Left Doralis Pedis: 1+, Right Dorsalis Pedis: 1+ Integumentary: Yes: WNL Neurological: Yes: Unresponsive Psychiatric: Yes: Other Labs: CBC, BMP 03/12/20 07:35 03/12/20 07:35 INR, PTT INR 1.51 (0.83-1.09) H 03/09/20 13:00 Abnormal Lab Results 03/14/20 03/14/20 03/14/20 05:25 05:25 06:00 RBC 2.49 L Hgb 7.8 L Hct 23.6 L D RDW 18.9 H Plt Count 97 L MPV 11.7 H Neutrophils % 85.3 H Nucleated RBC % 1 H PT with INR 17.10 H INR 1.44 H PTT (Actin FS) 39.2 H Sodium 146 H Potassium 3.0 L Chloride 109 H BUN 63.3 H Creatinine 2.2 H Random Glucose 175 H Lactic Acid Calcium 8.1 L Phosphorus 2.1 L AST 125 H ALT 73 H Alkaline Phosphatase 423 H Total Protein 5.1 L Albumin 0.4 L 03/14/20 06:00 RBC Hgb Hct RDW Plt Count MPV Neutrophils % Nucleated RBC % PT with INR INR PTT (Actin FS) Sodium Potassium Chloride BUN Creatinine Random Glucose Lactic Acid 3.0 H* Calcium Phosphorus AST ALT Alkaline Phosphatase Total Protein Albumin - ....Imaging Chest X-ray: Image Reviewed EKG: Image Reviewed Assessment/Plan Ms. Mccormick is a 74 year old black female with a significant past medical history of CVA, ESRD (on HD), DM, LBBB who presents to the emergency department with dislodged PEG tube. The patient was admitted 01/13-03/05 for unresponsiveness for two days and was found to have a large, progressing MCA stroke.Positive TNIs. acute/chronic respiratory failure; s/p tracheostomy, with mechanical ventilation Hypokalemia acute/chronic diastolic CHF. Plan: Replete electrolytes. BUN/Cr, electrolytes, Is and Os, daily weight. f/u CXR. IVF, hemodialysis per assistant fitness manager. DVT PLX Ventilatory support Condition remains guarded.
[2020-03-13] MEDS: INSULIN SLIDING SCALE (NOVOLOG) 1 VIAL SQ SCH ×3 (06:31→18:29)
[2020-03-13] MEDS: ALBUTEROL SO4 0.083% IH SOL 2.5 MG/3 ML VIAL.NEB. NEB PRN ×2 (07:41→15:45)
[2020-03-13] MEDS: ACETYLCYSTEINE 20% 200MG/ML 4 ML VIAL *FOR ORAL / INH USE ONLY NEB SCH ×4 (07:41→20:15)
--- NOTE | 2020-03-13 07:46 | PN ---
Progress Note, Physician History of Present Illness: PULMONARY NO CHANGE UNRESPONSIVE ON VENT SUPPORT AC MODE - Current Medication List Current Medications: Active Medications Acetylcysteine (Mucomyst 20 Oral / Inh Use Only*) 200 mg NEB RQID [facility] Last Admin: 03/13/20 07:41 Dose: 200 mg Documented by: Albuterol Sulfate (Ventolin 0.083% Nebulizer Soln -) 1 amp NEB Q6H PRN PRN Reason: SHORT OF BREATH/WHEEZING Last Admin: 03/13/20 07:41 Dose: 1 amp Documented by: Banana Based Medical Food (Banatrol Plus Powder Packet) 1 packet PO DAILY [facility] Last Admin: 03/12/20 15:00 Dose: 1 packet Documented by: Sodium Chloride (Normal Saline -) 250 mls @ 3,000 mls/hr IV PRN PRN PRN Reason: Hypotension during Dialysis Stop: 03/13/20 10:17 Insulin Aspart (Novolog Vial Sliding Scale -) 1 vial SQ Q6H [facility]; Protocol Last Admin: 03/13/20 06:31 Dose: Not Given Documented by: Insulin Detemir (Levemir Vial) 10 units SQ HS [facility] Last Admin: 03/12/20 23:12 Dose: 10 units Documented by: - Objective Vital Signs: Vital Signs Temperature 99.9 F H 03/13/20 06:00 Pulse Rate 112 H 03/13/20 06:00 Respiratory Rate 18 03/13/20 06:00 Blood Pressure 152/78 03/13/20 06:00 O2 Sat by Pulse Oximetry (%) 100 03/13/20 06:00 Constitutional: Yes: Thin, Other (UNRESPONSIVE) Eyes: Yes: WNL HENT: Yes: WNL Neck: Yes: Supple (TRACH) Cardiovascular: Yes: Regular Rate and Rhythm, S1, S2 Respiratory: Yes: Rhonchi (FEW SCATTERED RHONCHI) Gastrointestinal: Yes: Normal Bowel Sounds, Soft Extremities: Yes: Other Edema: No Labs: Assessment/Plan ASSESSMENT AND PLAN: Chronic Respiratory Failure Dislodged PEG tube s/p replacement r/o Pneumonia Sepsis HTN Hyperlipidemia ckd + troponin Anemia/thrombocytopenia - - HD per renal - FiO2 to keep SpO2 >90% - continue volume assist control - not a candidate for weaning due to poor mental status - enteral feeds - DVT prophylaxis -monitor lytes,renal function,cbc - normal transfusion threshold - DR RAMIREZ
[2020-03-13 10:59] LABS: HEMATOCRIT 30.8 % (32.4-45.2); HEMOGLOBIN 10.2 GM/dL (10.7-15.3); MCH 30.1 pg (25.7-33.7); MEAN CELL VOLUME 91.3 fl (80-96); MEAN PLT VOLUME 12.5 fl (7.5-11.1); PLATELET COUNT 121 K/MM3 (134-434); RBC 3.38 M/mm3 (3.60-5.2); RDW 18.3 % (11.6-15.6); WHITE BLOOD COUNT 8.4 K/mm3 (4.0-10.0)
--- NOTE | 2020-03-13 11:11 | PN ---
Progress Note, Physician History of Present Illness: The patient is a 74 year old female with a significant past medical history of CVA, ESRD (on HD, normal session yesterday) who presents to the emergency department, from [facility], for evaluation of a dislodged PEG tube 3.5 hours ago, per [facility]. Upon arrival of EMS, it was discovered the patient is tachycardic and hypotensive, currently 96/81. The patient is nonverbal at baseline. The patient was admitted 01/13-03/05 for unresponsiveness for two days and was found to have a large, progressing MCA stroke. - Current Medication List Current Medications: Active Medications Acetylcysteine (Mucomyst 20 Oral / Inh Use Only*) 200 mg NEB RQID [facility] Last Admin: 03/13/20 07:41 Dose: 200 mg Documented by: Albuterol Sulfate (Ventolin 0.083% Nebulizer Soln -) 1 amp NEB Q6H PRN PRN Reason: SHORT OF BREATH/WHEEZING Last Admin: 03/13/20 07:41 Dose: 1 amp Documented by: Banana Based Medical Food (Banatrol Plus Powder Packet) 1 packet PO DAILY [facility] Last Admin: 03/12/20 15:00 Dose: 1 packet Documented by: Insulin Aspart (Novolog Vial Sliding Scale -) 1 vial SQ Q6H [facility]; Protocol Last Admin: 03/13/20 06:31 Dose: Not Given Documented by: Insulin Detemir (Levemir Vial) 10 units SQ HS [facility] Last Admin: 03/12/20 23:12 Dose: 10 units Documented by: - Objective Vital Signs: Vital Signs Temperature 99.9 F H 03/13/20 06:00 Pulse Rate 79 03/13/20 07:46 Respiratory Rate 27 H 03/13/20 07:46 Blood Pressure 152/78 03/13/20 06:00 O2 Sat by Pulse Oximetry (%) 95 03/13/20 07:46 Eyes: Yes: WNL, Conjunctiva Clear, EOM Intact HENT: Yes: WNL, Atraumatic, Normocephalic Neck: Yes: WNL, Supple, Trachea Midline Cardiovascular: Yes: WNL, Regular Rate and Rhythm Respiratory: Yes: Intubated, Mechanically Ventilated Gastrointestinal: Yes: WNL, Normal Bowel Sounds Genitourinary: Yes: WNL Musculoskeletal: Yes: WNL Extremities: Yes: WNL Edema: No Integumentary: Yes: WNL Labs: CBC, BMP 03/13/20 10:00 INR, PTT INR 1.51 (0.83-1.09) H 03/09/20 13:00 Problem List - Problems (1) Sepsis Code(s): A41.9 - SEPSIS, UNSPECIFIED ORGANISM Qualifiers: Sepsis type: sepsis due to unspecified organism Sepsis acute organ dysfunction status: unspecified Qualified Code(s): A41.9 - Sepsis, unspecified organism (2) Altered mental status Code(s): R41.82 - ALTERED MENTAL STATUS, UNSPECIFIED (3) Anemia Code(s): D64.9 - ANEMIA, UNSPECIFIED (4) Clotted dialysis access Code(s): T82.49XA - OTH COMPLICATION OF VASCULAR DIALYSIS CATHETER, INIT ENCNTR (5) Diabetes Code(s): E11.9 - TYPE 2 DIABETES MELLITUS WITHOUT COMPLICATIONS (6) ESRD on dialysis Code(s): N18.6 - END STAGE RENAL DISEASE; Z99.2 - DEPENDENCE ON RENAL DIALYSIS (7) Hypertension Code(s): I10 - ESSENTIAL (PRIMARY) HYPERTENSION (8) Lactic acidosis Code(s): E87.2 - ACIDOSIS (9) Pneumonia, aspiration Code(s): J69.0 - PNEUMONITIS DUE TO INHALATION OF FOOD AND VOMIT (10) SOB (shortness of breath) Code(s): R06.02 - SHORTNESS OF BREATH (11) Stroke Code(s): I63.9 - CEREBRAL INFARCTION, UNSPECIFIED Assessment/Plan Ms. Mccormick is a 74 year old black female with a significant past medical history of CVA, ESRD (on HD), DM, LBBB who presents to the emergency departmentwith dislodged PEG tube. The patient was admitted 01/13-03/05 for unresponsiveness for two days and was found to have a large, progressing MCA stroke.Positive TNIs Plan: IVF, hemodialysis per grinder set up operator internal. DVT PLX Ventilatory support Condition remains guarded.
[2020-03-13 11:18] LABS: BLOOD UREA NITROGEN 51.8 mg/dL (7-18); CALCIUM 8.4 mg/dL (8.5-10.1); CREATININE 1.8 mg/dL (0.55-1.3)
[2020-03-13] MEDS ORDERED: PT OWN MED DRAWER 7, Y5N ONE (11:30)
[2020-03-13] MEDS: BANATROL PLUS POWDER PACKET PO SCH (11:41)
--- NOTE | 2020-03-13 13:10 | PN ---
Progress Note (short form) - Note Progress Note: see dc summary Problem List - Problems (1) Unresponsiveness Code(s): R41.89 - OTH SYMPTOMS AND SIGNS W COGNITIVE FUNCTIONS AND AWARENESS (2) Sepsis Code(s): A41.9 - SEPSIS, UNSPECIFIED ORGANISM Qualifiers: Sepsis type: sepsis due to unspecified organism Sepsis acute organ dysfunction status: unspecified Qualified Code(s): A41.9 - Sepsis, unspecified organism (3) ESRD on dialysis Code(s): N18.6 - END STAGE RENAL DISEASE; Z99.2 - DEPENDENCE ON RENAL DIALYSIS (4) Stroke Code(s): I63.9 - CEREBRAL INFARCTION, UNSPECIFIED
[2020-03-13] MEDS ORDERED: POTASSIUM CHLORIDE ORAL LIQUID 20 MEQ/15 ML PO ONE (13:21)
--- NOTE | 2020-03-13 13:21 | DS ---
Physical Examination Vital Signs: Vital Signs Temperature 99.9 F H 03/13/20 06:00 Pulse Rate 86 03/13/20 11:37 Respiratory Rate 30 H 03/13/20 11:37 Blood Pressure 152/78 03/13/20 06:00 O2 Sat by Pulse Oximetry (%) 96 03/13/20 11:37 Labs: CBC, BMP 03/13/20 10:00 03/13/20 10:00 Discharge Summary Problems reviewed: Yes Reason For Visit: HYPERGLYCEMIA, ELEVATED TROPONIN LEVEL, SEPSIS Current Active Problems Hyperglycemia (Acute) Sepsis (Acute) Unresponsiveness (Acute) Health Concerns: - Admission History of Present Illness: pt well known to me Recently discharged 74F with PMH of CVA presents to the ED via EMS from [facility] for a dislodged PEG tube. On arrival pt was tachycardic at 120 and borderline febrile at 100.3. Pt is unresponsive at baseline 2/2 CVA, unable to obtain history. She was just discharged recently after long hospital stay for CVA. pt also found to be septic/ hypotensive Admitted to icu chart is reviewed pt baseline unresponsive Pt was seen by ID, Pulmonary , Renal Cdiff negative has chronic diarrhea Was on IV zosyn , steroids was also transfused for anemia ' 03/07/20 15:03 Blood - Peripheral Venous Blood Culture - Final NO GROWTH AFTER 5 DAYS INCUBATION 03/07/20 15:03 Blood - Peripheral Venous Blood Culture - Final NO GROWTH AFTER 5 DAYS INCUBATION 03/08/20 00:30 Sputum - Endotrachea Suction/Ventilator Gram Stain - Final 03/08/20 00:30 Sputum - Endotrachea Suction/Ventilator Sputum Culture - Final Enterobacter Aerogenes Yeast Like Organism 03/08/20 05:00 Stool Clostridioides difficile Antigen - Final 03/08/20 05:00 Stool Clostridioides difficile Toxin Assay - Final leukocytosis resolved- off steroids cxray improved, doubt pneumonia s/p transfusion will d/c zosyn MDRO enterobacter- will d/c zosyn' guarded prognosis DC social workers and staff to continue ongoing discussion about goals of care for this pt Condition: Guarded - Instructions Disposition: [facility] - Home Medications Comprehensive Discharge Medication List: Ambulatory Orders Albuterol Sulfate Inhaler - [Ventolin HFA Inhaler -] 2 puff IH Q6H 01/15/20 Acetaminophen 650 mg GT TID 03/07/20 Insulin Sliding Scale [Novolog Vial Sliding Scale -] 1 vial SQ Q6H #14 units 03/13/20
[2020-03-13 14:12] VITALS: BMI 17.8
[2020-03-13] MEDS ORDERED: DEXTROSE 50%-WATER 25 GM/50 ML DISP.SYRIN ONE ×2 (18:57→19:11)
[2020-03-13] MEDS ORDERED: DEXTROSE 50%-WATER - 25 GM/50 ML VIAL ONE ×2 (19:27→19:31)
[2020-03-13] MEDS ORDERED: VANCOMYCIN 1 GM in D5W (PRE-DOCKED) 1,000 MG/250 ML IVPB ONE ×2 (20:27→21:00)
[2020-03-13] MEDS ORDERED: PIPERACILLIN/TAZOB 2.25 GM 2.25 GM in DEXTROSE 5%-WATER - 50 ML IVPB ONE (20:28)
[2020-03-13] MEDS ORDERED: DEXTROSE 50%-WATER - 25 GM/50 ML VIAL IVPUSH ONE ×3 (20:29→20:49)
[2020-03-13] MEDS ORDERED: SODIUM CHLORIDE 500 ML IV STA (20:30)
--- NOTE | 2020-03-13 20:47 | RAPID ---
Physical Examination Vital Signs: Vital Signs Temperature 99.5 F 03/13/20 14:00 Pulse Rate 115 H 03/13/20 14:00 Respiratory Rate 17 03/13/20 20:26 Blood Pressure 110/70 03/13/20 14:00 O2 Sat by Pulse Oximetry (%) 97 03/13/20 17:05 Labs: CBC, BMP 03/13/20 10:00 03/13/20 10:00
--- NOTE | 2020-03-13 20:55 | RAPID ---
Physical Examination Vital Signs: Vital Signs Temperature 99.5 F 03/13/20 14:00 Pulse Rate 115 H 03/13/20 14:00 Respiratory Rate 17 03/13/20 20:26 Blood Pressure 110/70 03/13/20 14:00 O2 Sat by Pulse Oximetry (%) 97 03/13/20 17:05 Findings/Remarks: Rapid response was paged overhead. facility worker team responded immediately. On arrival patient lying in bed, lethargic. Nonverbal at baseline. Nursing staff informed mutton puncher team multiple failed attempts to place peripheral IV access. Blood glucose 20s. Rapid response medicine team attempted peripheral IV access, with and without ultrasound, without success. D50 pushed via g-tube x 2 and 1 x permacath push with no improvement of blood glucose (on repeat fingerstick 18). Anesthesia paged stat and arrived immediately. Multiple attempts performed by anesthesia to place peripheral IV access without success. VS: 70/40, HR 80, SaO2 96% Phys exam: Gen: trached to vent Pulm: scattered rhonchi b/l Cards: S1S2 wnl no m/r/g Abd: G tube in place c/d/i no signs of infection Neuro: unable to assess, nurse reports no change in mental status from earlier in the day Plan: -ICU was called immediately, pending evaluation -full sepsis workup- blood, urine & sputum cultures -CXR -emergent left femoral line was placed to gain IV access as blood pressure rapidly dropping, now 40s/20s -Abd XR place to confirm femoral line placement -Will start immediate pressor support once placement confirmed-- pressors as per ICU -Primary team contacted, instructed to bolus 500cc at a time so as not to overload, 1500cc max -continue IV D50 pushes and continue to assess BGMs; oral glucose dissolving tabs prn -Family was notified of patient status and aware, would like to continue all resuscitative efforts -Night team present and aware of patient status, will continue to monitor Labs: CBC, BMP 03/13/20 10:00 03/13/20 10:00
[2020-03-13] MEDS ORDERED: VANCOMYCIN 1 GRAM (PRE-DOCKED) 1,000 MG/250 ML BAG IVPB ONE (21:00)
--- NOTE | 2020-03-13 21:50 | PROC ---
Central Line Insertion Indication: Poor Venous Access, Sepsis, Vasopressor Central Line: Triple Lumen Catheter Anesthesia: 1% Lidocaine Sterile Technique: Yes Ultrasound Guided Assistance: Yes Position: Left Femoral Post Insertion: Yes: Other (abd XR ordered for placement confirmation) Sterile Dressing Applied: Yes Remarks: emergent femoral left line placed, patient unable to verbalize family was notified and aware of emergent venous access placement
--- NOTE | 2020-03-13 23:16 | CONSULT ---
Consultation: REQUESTING PROVIDER: CONSULT REQUEST: We have been asked to medically evaluate this patient for hypotension . HISTORY OF PRESENT ILLNESS: Patient is a 74 YO F with PMH of ESRD on HD, MCA stroke 01/14/20 (trach on vent) presents from [facility] for PEG tube dislodgement. On arrival, she was found to be febrile, hypotensive, and tachycardic. She has a trach and on a ventilator; non verbal at baseline. She was most recently discharged from [facility] on 03/05/20 after a MCA stroke. Was previously admitted to ICU for sepsis 2/2 PNA and was then transferred to the med surg. On med surg today, rapid response was called because the patient had blood glucose in 20s. D50 was administered via the g-tube and the permacath. Multiple attempts were made for peripheral IV access, without success. Patient had BP 70/40, so Left femoral line was placed for IV access. Patient was given 500 mL NS bolus. Night floor team endorsed crackles on exam after the 500 mL NS bolus. CXR showed bilateral increased interstitial markings. BP remains 84/48, MAP 60. Patient was admitted to ICU for hypotension. REVIEW OF SYSTEMS: ROS unable to be obtained as patient is non-verbal PHYSICAL EXAMINATION Vital Signs - 24 hr 03/13/20 03/13/20 03/13/20 00:53 02:00 04:50 Temperature 99.3 F Pulse Rate 118 H Respiratory 20 18 18 Rate Blood Pressure 103/60 O2 Sat by Pulse 100 100 Oximetry (%) 03/13/20 03/13/20 03/13/20 06:00 07:46 09:00 Temperature 99.9 F H Pulse Rate 112 H 79 Respiratory 18 27 H Rate Blood Pressure 152/78 O2 Sat by Pulse 100 95 99 Oximetry (%) 03/13/20 03/13/20 03/13/20 10:00 11:37 14:00 Temperature 100.0 F H 99.5 F Pulse Rate 118 H 86 115 H Respiratory 18 30 H 20 Rate Blood Pressure 102/65 110/70 O2 Sat by Pulse 99 96 100 Oximetry (%) 03/13/20 03/13/20 03/13/20 17:05 17:25 20:26 Temperature 99.2 F Pulse Rate 104 H Respiratory 17 20 17 Rate Blood Pressure 82/46 L O2 Sat by Pulse 97 98 Oximetry (%) GENERAL: The patient is awake, alert, non-verbal. responsive to painful stimuli HEENT: Normal with no signs of trauma. PERRL, moist mucous membranes. NECK: trach in place LUNGS: venti breat sounds b/l; coarse breath sounds HEART: Regular rate and rhythm, S1, S2 without murmur, rub or gallop. ABDOMEN: Soft, nontender, nondistended, normoactive bowel sounds, no guarding EXTREMITIES: 2+ pulses, warm, well-perfused, 2+ pitting edema b/l UE Laboratory Results - last 24 hr 03/13/20 03/13/20 03/13/20 06:30 10:00 10:00 WBC 8.4 RBC 3.38 L Hgb 10.2 L Hct 30.8 L D MCV 91.3 MCH 30.1 MCHC 33.0 RDW 18.3 H Plt Count 121 L D MPV 12.5 H Sodium 146 H Potassium 3.0 L Chloride 107 Carbon Dioxide 23 Anion Gap 16 BUN 51.8 H Creatinine 1.8 H Est GFR (CKD-EPI)AfAm 31.14 Est GFR (CKD-EPI)NonAf 26.87 POC Glucometer 105 Random Glucose 89 Calcium 8.4 L Blood Type Antibody Screen 03/13/20 03/13/20 03/13/20 10:06 11:48 17:57 WBC RBC Hgb Hct MCV MCH MCHC RDW Plt Count MPV Sodium Potassium Chloride Carbon Dioxide Anion Gap BUN Creatinine Est GFR (CKD-EPI)AfAm Est GFR (CKD-EPI)NonAf POC Glucometer 65 42 Random Glucose Calcium Blood Type O POSITIVE Antibody Screen Negative 03/13/20 03/13/20 03/13/20 18:52 18:55 19:25 WBC RBC Hgb Hct MCV MCH MCHC RDW Plt Count MPV Sodium Potassium Chloride Carbon Dioxide Anion Gap BUN Creatinine Est GFR (CKD-EPI)AfAm Est GFR (CKD-EPI)NonAf POC Glucometer < 10 < 10 18 Random Glucose Calcium Blood Type Antibody Screen 03/13/20 20:38 WBC RBC Hgb Hct MCV MCH MCHC RDW Plt Count MPV Sodium Potassium Chloride Carbon Dioxide Anion Gap BUN Creatinine Est GFR (CKD-EPI)AfAm Est GFR (CKD-EPI)NonAf POC Glucometer 224 Random Glucose Calcium Blood Type Antibody Screen Active Medications Generic Name Dose Route Start Last Admin Trade Name Freq PRN Reason Stop Dose Admin Acetylcysteine 200 mg 03/09/20 08:00 03/13/20 15:45 Mucomyst 20 Oral / Inh Use Only* NEB 200 mg RQID JOSE Administration Albuterol Sulfate 1 amp 03/09/20 00:15 03/13/20 15:45 Ventolin 0.083% Nebulizer Soln - NEB 1 amp Q6H PRN Administration SHORT OF BREATH/WHEEZING Banana Based Medical Food 1 packet 03/13/20 22:00 Banatrol Plus Powder Packet GT TID JOSE Chlorhexidine Gluconate 1 applic 03/14/20 22:00 Hibiclens For Decolonization - TP HS JOSE Insulin Aspart 1 vial 03/09/20 06:00 03/13/20 18:29 Novolog Vial Sliding Scale - SQ Not Given Q6H [facility] Protocol Insulin Detemir 10 units 03/08/20 22:00 03/12/20 23:12 Levemir Vial SQ 10 units HS [facility] Administration Mupirocin 1 applic 03/13/20 23:15 Bactroban Ointment (For Decolonization) - NS 03/18/20 23:14 BID [facility] ASSESSMENT/PLAN: 74 YO F PMH of ESRD on HD, MCA stroke 01/14/20 (trach on vent) presents from [facility] for PEG tube dislodgement. Found to be febrile, hypotensive, and tachycardic. Admitted previously to the ICU for sepsis 2/2 PNA. Now admitted to the ICU for hypotension on vasopressin drip Neuro: -H/o MCA stroke. - nonverbal Pulm - s/p Tracheostomy on vent - Keep saturation > 90% -CXR: lung masses w/ atelectactasis/infiltrative changes at the bases. s/p vanc & zosyn -CXR today: b/l INCREASED interstitial markings rate , TV , FIO2 %, Cardio -Hypotension -Maintain BP >65. -vasopressin drip -troponinemia resolved ID #sepsis 2/2 PNA. - leukocytosis resolved, afebrile - lactic acid -blood culture no growth -c diff antigen/toxin neg -sputum culture (03/08): enterobacter aerogenes, yeast like organism sensitive to amikacin, gentamicin, levofloxacin, tigecycline/tygacil, tobramycin, tmp-smx -s/p one dose vanc & zosyn today Renal - ESRD on HD, anuric -BUN/Cr improve to 51.8/1.8 today GI: -peg tube was replaced in ICU on 03/08/20 -protonix 40 IV PUSH Daily for ppx Endocrine -BGM -ISS Q6H -levemir 10 units SQ HS FEN no ivf monitor lytes tube feed vital 1.2 Lines L femoral line (03/13) Dispo: maintain ICU Dispo: We will continue to follow the patient. Thank you for this consultative opportunity. Visit type - Medication Review Med list reviewed for High Risk Meds patients 65 and older: Yes - Emergency Visit Emergency Visit: No - New Patient This patient is new to me today: No - Critical Care Critical Care patient: No ATTENDING PHYSICIAN STATEMENT I saw and evaluated the patient. I reviewed the resident's note and discussed the case with the resident. I agree with the resident's findings and plan as documented. SUBJECTIVE: OBJECTIVE: ASSESSMENT AND PLAN:
[2020-03-13] MEDS: INSULIN (LEVEMIR) 100 UNITS/ML UNITS SQ SCH (23:42)
[2020-03-14] MEDS: INSULIN SLIDING SCALE (NOVOLOG) 1 VIAL SQ SCH ×4 (00:36→17:25)
[2020-03-14] MEDS: VASOPRESSIN 40 UNITS in SODIUM CHLORIDE 98 ML IVPB SCH ×2 (01:04→20:31)
[2020-03-14] MEDS ORDERED: SODIUM CHLORIDE 1,000 ML IV SCH (02:15)
[2020-03-14] MEDS: SODIUM CHLORIDE 1,000 ML IV SCH (02:46)
[2020-03-14] MEDS: BANATROL PLUS POWDER PACKET GT SCH ×3 (06:23→21:05)
[2020-03-14 06:55] LABS: BASO % 0.6 % (0-2.0); EOS % 0.8 % (0-4.5); HEMATOCRIT 23.6 % (32.4-45.2); HEMOGLOBIN 7.8 GM/dL (10.7-15.3); LYMPH % 8.4 % (8-40); MCH 31.3 pg (25.7-33.7); MCHC 33.1 g/dl (32.0-36.0); MEAN CELL VOLUME 94.5 fl (80-96); MEAN PLT VOLUME 11.7 fl (7.5-11.1); MONO % 4.9 % (3.8-10.2); NEUT % 85.3 % (42.8-82.8); PLATELET COUNT 97 K/MM3 (134-434); RBC 2.49 M/mm3 (3.60-5.2); RDW 18.9 % (11.6-15.6); WHITE BLOOD COUNT 7.8 K/mm3 (4.0-10.0)
[2020-03-14 07:09] LABS: ACTIVATED PTT 39.2 SECONDS (25.2-36.5)
[2020-03-14 07:10] LABS: ALBUMIN 0.4 g/dl (3.4-5.0); BILIRUBIN,TOTAL 0.8 mg/dL (0.2-1); BLOOD UREA NITROGEN 63.3 mg/dL (7-18); CALCIUM 8.1 mg/dL (8.5-10.1); CREATININE 2.2 mg/dL (0.55-1.3); PHOSPHOROUS 2.1 mg/dL (2.5-4.9); TOT PROT 5.1 g/dl (6.4-8.2)
[2020-03-14] MEDS: ALBUTEROL SO4 0.083% IH SOL 2.5 MG/3 ML VIAL.NEB. NEB PRN ×3 (07:35→15:39)
[2020-03-14] MEDS: ACETYLCYSTEINE 20% 200MG/ML 4 ML VIAL *FOR ORAL / INH USE ONLY NEB SCH ×4 (07:35→20:15)
[2020-03-14 08:18] LABS: INR 1.44 (0.83-1.09); PROTHROMBIN TIME (PATIENT) 17.1 SEC (9.7-13.0)
[2020-03-14] MEDS: PANTOPRAZOLE SODIUM 40 MG VIAL IVPUSH SCH (09:25)
[2020-03-14] MEDS: MUPIROCIN 2% TOPICAL OINTMENT FOR DECOLONIZATION NS SCH ×2 (09:26→21:03)
[2020-03-14] MEDS: KCL 10 MEQ IVPB 10 MEQ/100 ML INFUS.BAG IVPB SCH ×3 (09:47→10:54)
--- NOTE | 2020-03-14 10:41 | PN ---
Progress Note (short form) - Note Progress Note: RENAL now in icu Was discharged and came back with dislodged peg and was found to be septic so now in icu Last Vital Signs Temp Pulse Resp BP Pulse Ox 97.8 F 98 H 14 124/65 98 03/14/20 10:00 03/14/20 10:00 03/14/20 10:00 03/14/20 10:00 03/14/20 10:00 lungs clear bilat cvs s1s2 rr abd soft ext has upper extremity edema neuro not responsive, eyes fully open CBC, BMP 03/14/20 05:25 03/14/20 06:00 Current Medications Generic Name Dose Route Start Last Admin Trade Name Freq PRN Reason Stop Dose Admin Acetylcysteine 200 mg 03/09/20 08:00 03/14/20 07:35 Mucomyst 20 Oral / Inh Use Only* NEB 200 mg RQID JOSE Administration Albuterol Sulfate 1 amp 03/14/20 07:40 03/14/20 07:35 Ventolin 0.083% Nebulizer Soln - NEB 1 amp RQID PRN Administration ASTHMA Banana Based Medical Food 1 packet 03/13/20 22:00 03/14/20 06:23 Banatrol Plus Powder Packet GT 1 packet TID JOSE Administration Chlorhexidine Gluconate 1 applic 03/14/20 22:00 Hibiclens For Decolonization - TP HS [facility]SE Vasopressin 40 units/ Sodium 100 mls @ 5 mls/hr 03/14/20 00:15 03/14/20 07:06 Chloride IVPB 1 units/hr ASDIR JOSE 2.5 mls/hr Titration Protocol 2 UNITS/HR Sodium Chloride 1,000 mls @ 42 mls/hr 03/14/20 02:20 03/14/20 02:46 Normal Saline - IV 42 mls/hr ASDIR JOSE Administration Potassium Chloride 10 meq in 100 mls @ 100 mls/hr 03/14/20 09:45 03/14/20 09:50 Potassium Chloride 10 Meq Premix Ivpb - IVPB 03/14/20 12:44 100 mls/hr Q60M JOSE Administration Insulin Aspart 1 vial 03/09/20 06:00 03/14/20 05:12 Novolog Vial Sliding Scale - SQ Not Given Q6H [facility] Protocol Insulin Detemir 10 units 03/08/20 22:00 03/13/20 23:42 Levemir Vial SQ Not Given HS [facility] Mupirocin 1 applic 03/13/20 23:15 03/14/20 09:26 Bactroban Ointment (For Decolonization) - NS 03/18/20 23:14 1 applic BID [facility] Administration Pantoprazole Sodium 40 mg 03/14/20 10:00 03/14/20 09:25 Protonix Iv IVPUSH 40 mg DAILY JO[facility] Administration Impression ESRD S/P CVA x2 septic on pressors ?new onset dm s/p hypoglycemic episode. anemia worsened PLAN monitor hgb continue insulin antibiotics per ID poor prognosis can dialyze for fluid removal MV
[2020-03-14] MEDS ORDERED: SODIUM CHLORIDE 250 ML IV PRN (10:43)
[2020-03-14] MEDS ORDERED: LACTATED RINGERS SOLUTION 1000 ML INFUS.BAG IV ONE (11:24)
--- NOTE | 2020-03-14 11:35 | PN ---
Progress Note (short form) - Note Progress Note: events noted discharge was held due to hypotension septic Spoke with ICU team Vital Signs - 24 hr 03/13/20 03/13/20 03/13/20 11:37 14:00 17:05 Temperature 99.5 F Pulse Rate 86 115 H Respiratory 30 H 20 17 Rate Blood Pressure 110/70 O2 Sat by Pulse 96 100 97 Oximetry (%) 03/13/20 03/13/20 03/13/20 17:25 20:10 20:25 Temperature 99.2 F Pulse Rate 104 H Respiratory 20 Rate Blood Pressure 82/46 L 59/43 L 71/43 L O2 Sat by Pulse 98 Oximetry (%) 03/13/20 03/13/20 03/13/20 20:26 21:15 22:00 Temperature 99.0 F Pulse Rate 95 H Respiratory 17 18 Rate Blood Pressure 88/50 L 84/48 L O2 Sat by Pulse 100 100 Oximetry (%) 03/13/20 03/14/20 03/14/20 22:25 00:00 01:04 Temperature 99.1 F Pulse Rate 105 H 100 H Respiratory 15 Rate Blood Pressure 79/42 L 82/45 L 82/45 L O2 Sat by Pulse 97 100 Oximetry (%) 03/14/20 03/14/20 03/14/20 01:07 02:00 04:00 Temperature 99.2 F Pulse Rate 98 H 83 Respiratory 14 15 14 Rate Blood Pressure 111/59 L 104/58 L O2 Sat by Pulse 100 100 96 Oximetry (%) 03/14/20 03/14/20 03/14/20 05:00 06:00 07:00 Temperature 98.3 F Pulse Rate 99 H Respiratory 19 15 Rate Blood Pressure 116/64 129/73 O2 Sat by Pulse 95 Oximetry (%) 03/14/20 03/14/20 03/14/20 07:06 07:25 07:34 Temperature Pulse Rate 97 H 98 H Respiratory 14 Rate Blood Pressure 129/73 129/66 O2 Sat by Pulse 97 Oximetry (%) 03/14/20 03/14/20 03/14/20 07:40 08:00 08:17 Temperature Pulse Rate 97 H 100 H Respiratory 14 13 18 Rate Blood Pressure 115/63 O2 Sat by Pulse 97 97 100 Oximetry (%) 03/14/20 03/14/20 03/14/20 09:00 09:49 10:00 Temperature 97.8 F Pulse Rate 98 H 98 H Respiratory 14 14 14 Rate Blood Pressure 116/66 124/65 O2 Sat by Pulse 98 98 98 Oximetry (%) 03/14/20 03/14/20 11:26 11:29 Temperature Pulse Rate Respiratory 14 Rate Blood Pressure O2 Sat by Pulse 100 100 Oximetry (%) Current Medications Generic Name Dose Route Start Last Admin Trade Name Freq PRN Reason Stop Dose Admin Acetylcysteine 200 mg 03/09/20 08:00 03/14/20 11:28 Mucomyst 20 Oral / Inh Use Only* NEB 200 mg RQID JOSE Administration Albuterol Sulfate 1 amp 03/14/20 07:40 03/14/20 11:29 Ventolin 0.083% Nebulizer Soln - NEB 1 amp RQID PRN Administration ASTHMA Banana Based Medical Food 1 packet 03/13/20 22:00 03/14/20 06:23 Banatrol Plus Powder Packet GT 1 packet TID JOSE Administration Chlorhexidine Gluconate 1 applic 03/14/20 22:00 Hibiclens For Decolonization - TP HS JOSE Vasopressin 40 units/ Sodium 100 mls @ 5 mls/hr 03/14/20 00:15 03/14/20 07:06 Chloride IVPB 1 units/hr ASDIR JOSE 2.5 mls/hr Titration Protocol 2 UNITS/HR Sodium Chloride 1,000 mls @ 42 mls/hr 03/14/20 02:20 03/14/20 02:46 Normal Saline - IV 42 mls/hr ASDIR OJSE Administration Potassium Chloride 10 meq in 100 mls @ 100 mls/hr 03/14/20 09:45 03/14/20 10:54 Potassium Chloride 10 Meq Premix Ivpb - IVPB 03/14/20 12:44 100 mls/hr Q60M JOSE Administration Sodium Chloride 250 mls @ 3,000 mls/hr 03/14/20 10:43 Normal Saline - IV 03/15/20 10:43 PRN PRN Hypotension during Dialysis Insulin Aspart 1 vial 03/09/20 06:00 03/14/20 05:12 Novolog Vial Sliding Scale - SQ Not Given Q6H JOSE Protocol Insulin Detemir 10 units 03/08/20 22:00 03/13/20 23:42 Levemir Vial SQ Not Given HS JOSE Mupirocin 1 applic 03/13/20 23:15 03/14/20 09:26 Bactroban Ointment (For Decolonization) - NS 03/18/20 23:14 1 applic BID JOSE Administration Pantoprazole Sodium 40 mg 03/14/20 10:00 03/14/20 09:25 Protonix Iv IVPUSH 40 mg DAILY JOSE Administration Laboratory Results - last 24 hr 03/13/20 03/13/20 03/13/20 10:06 11:48 17:57 WBC RBC Hgb Hct MCV MCH MCHC RDW Plt Count MPV Absolute Neuts (auto) Neutrophils % Lymphocytes % Monocytes % Eosinophils % Basophils % Nucleated RBC % PT with INR INR PTT (Actin FS) Sodium Potassium Chloride Carbon Dioxide Anion Gap BUN Creatinine Est GFR (CKD-EPI)AfAm Est GFR (CKD-EPI)NonAf POC Glucometer 65 42 Random Glucose Lactic Acid Calcium Phosphorus Magnesium Total Bilirubin AST ALT Alkaline Phosphatase Total Protein Albumin Blood Type O POSITIVE Antibody Screen Negative 03/13/20 03/13/20 03/13/20 18:52 18:55 19:25 WBC RBC Hgb Hct MCV MCH MCHC RDW Plt Count MPV Absolute Neuts (auto) Neutrophils % Lymphocytes % Monocytes % Eosinophils % Basophils % Nucleated RBC % PT with INR INR PTT (Actin FS) Sodium Potassium Chloride Carbon Dioxide Anion Gap BUN Creatinine Est GFR (CKD-EPI)AfAm Est GFR (CKD-EPI)NonAf POC Glucometer < 10 < 10 18 Random Glucose Lactic Acid Calcium Phosphorus Magnesium Total Bilirubin AST ALT Alkaline Phosphatase Total Protein Albumin Blood Type Antibody Screen 03/13/20 03/14/20 03/14/20 20:38 00:13 05:00 WBC RBC Hgb Hct MCV MCH MCHC RDW Plt Count MPV Absolute Neuts (auto) Neutrophils % Lymphocytes % Monocytes % Eosinophils % Basophils % Nucleated RBC % PT with INR INR PTT (Actin FS) Sodium Potassium Chloride Carbon Dioxide Anion Gap BUN Creatinine Est GFR (CKD-EPI)AfAm Est GFR (CKD-EPI)NonAf POC Glucometer 224 220 136 Random Glucose Lactic Acid Calcium Phosphorus Magnesium Total Bilirubin AST ALT Alkaline Phosphatase Total Protein Albumin Blood Type Antibody Screen 03/14/20 03/14/20 03/14/20 05:25 05:25 06:00 WBC 7.8 RBC 2.49 L Hgb 7.8 L Hct 23.6 L D MCV 94.5 MCH 31.3 MCHC 33.1 RDW 18.9 H Plt Count 97 L MPV 11.7 H Absolute Neuts (auto) 6.6 Neutrophils % 85.3 H Lymphocytes % 8.4 D Monocytes % 4.9 Eosinophils % 0.8 Basophils % 0.6 Nucleated RBC % 1 H PT with INR 17.10 H INR 1.44 H PTT (Actin FS) 39.2 H Sodium 146 H Potassium 3.0 L Chloride 109 H Carbon Dioxide 24 Anion Gap 13 BUN 63.3 H Creatinine 2.2 H Est GFR (CKD-EPI)AfAm 24.43 Est GFR (CKD-EPI)NonAf 21.08 POC Glucometer Random Glucose 175 H Lactic Acid Calcium 8.1 L Phosphorus 2.1 L Magnesium 2.0 Total Bilirubin 0.8 AST 125 H ALT 73 H Alkaline Phosphatase 423 H Total Protein 5.1 L Albumin 0.4 L Blood Type Antibody Screen 03/14/20 06:00 WBC RBC Hgb Hct MCV MCH MCHC RDW Plt Count MPV Absolute Neuts (auto) Neutrophils % Lymphocytes % Monocytes % Eosinophils % Basophils % Nucleated RBC % PT with INR INR PTT (Actin FS) Sodium Potassium Chloride Carbon Dioxide Anion Gap BUN Creatinine Est GFR (CKD-EPI)AfAm Est GFR (CKD-EPI)NonAf POC Glucometer Random Glucose Lactic Acid 3.0 H* Calcium Phosphorus Magnesium Total Bilirubin AST ALT Alkaline Phosphatase Total Protein Albumin Blood Type Antibody Screen S1 S2 RRR Lungs decreased Trach Abd- soft, NT GT+ edema+ PLAN pressors continue with current care ongoing discussion with family with regards to [facility] Poor prognosis Problem List - Problems (1) Unresponsiveness Code(s): R41.89 - OTH SYMPTOMS AND SIGNS W COGNITIVE FUNCTIONS AND AWARENESS (2) Sepsis Code(s): A41.9 - SEPSIS, UNSPECIFIED ORGANISM Qualifiers: Sepsis type: sepsis due to unspecified organism Sepsis acute organ dysfunction status: unspecified Qualified Code(s): A41.9 - Sepsis, unspecified organism (3) ESRD on dialysis Code(s): N18.6 - END STAGE RENAL DISEASE; Z99.2 - DEPENDENCE ON RENAL DIALYSIS (4) Stroke Code(s): I63.9 - CEREBRAL INFARCTION, UNSPECIFIED
--- NOTE | 2020-03-14 12:21 | PN ---
Progress Note (short form) - Note Progress Note: 74 yo female with pmh h PMH of ESRD on HD, MCA stroke 01/14/20 (trach on vent) presents from [facility] for PEG tube dislodgement. On arrival, she was found to be febrile, hypotensive, and tachycardic. She has a trach and on a ventilator; non verbal at baseline. She was most recently discharged from [facility] on 03/05/20 after a MCA stroke. Was previously admitted to ICU for sepsis 2/2 PNA and was then transferred to the [facility]. On [facility] today, rapid response was called because the patient had blood glucose in 20s. D50 was administered via the g- tube and the permacath. Multiple attempts were made for peripheral IV access, without success. Patient had BP 70/40, so Left femoral line was placed for IV access. Patient was given 500 mL NS bolus. Night floor team endorsed crackles on exam after the 500 mL NS bolus. CXR showed bilateral increased interstitial markings. BP remains 84/48, MAP 60. Patient was admitted to ICU for hypotension. PT in ICU was put on vasopressin drip then given NS liter and bolus of LR and now off vasopressin and BP is MAP>65. Pt is stable to be transferred back to [facility]
--- NOTE | 2020-03-14 13:28 | PN ---
Teaching Attending Note Name of Resident: Conner Davison ATTENDING PHYSICIAN STATEMENT I saw and evaluated the patient. I reviewed the resident's note and discussed the case with the resident. I agree with the resident's findings and plan as documented. SUBJECTIVE: Patient seen and examined in the ICU. Transferred due to transient hypotension and was placed on low dose Vasopressin. Patient only received 1 L of IVF resuscitation. Poorly responsive on AC Mode of vent. CXR: RLL infiltrate Intake & Output 03/11/20 03/12/20 03/13/20 03/14/20 23:59 23:59 23:59 23:59 Intake Total 1656 4111 700 5574 Output Total 31533 0 Balance 1656 -9402 576 1693 Weight 109 lb 3.2 oz 107 lb 11.2 oz 92 lb Last Vital Signs Temp Pulse Resp BP Pulse Ox 97.8 F 100 H 16 87/50 L 100 03/14/20 10:00 03/14/20 12:40 03/14/20 12:25 03/14/20 13:08 03/14/20 11:29 Active Medications Acetylcysteine (Mucomyst 20 Oral / Inh Use Only*) 200 mg NEB RQID JOSE Last Admin: 03/14/20 11:28 Dose: 200 mg Documented by: Albuterol Sulfate (Ventolin 0.083% Nebulizer Soln -) 1 amp NEB RQID PRN PRN Reason: ASTHMA Last Admin: 03/14/20 11:29 Dose: 1 amp Documented by: Banana Based Medical Food (Banatrol Plus Powder Packet) 1 packet GT TID JOSE Last Admin: 03/14/20 13:17 Dose: 1 packet Documented by: Chlorhexidine Gluconate (Hibiclens For Decolonization -) 1 applic TP HS JOSE Vasopressin 40 units/ Sodium (Chloride) 100 mls @ 5 mls/hr IVPB ASDIR JOSE; Protocol Last Titration: 03/14/20 12:40 Dose: 2 units/hr, 5 mls/hr Documented by: Sodium Chloride (Normal Saline -) 1,000 mls @ 42 mls/hr IV ASDIR JOSE Last Admin: 03/14/20 02:46 Dose: 42 mls/hr Documented by: Sodium Chloride (Normal Saline -) 250 mls @ 3,000 mls/hr IV PRN PRN PRN Reason: Hypotension during Dialysis Stop: 03/15/20 10:43 Insulin Aspart (Novolog Vial Sliding Scale -) 1 vial SQ Q6H [facility]; Protocol Last Admin: 03/14/20 12:23 Dose: Not Given Documented by: Insulin Detemir (Levemir Vial) 10 units SQ HS [facility] Last Admin: 03/13/20 23:42 Dose: Not Given Documented by: Mupirocin (Bactroban Ointment (For Decolonization) -) 1 applic NS BID [facility] Stop: 03/18/20 23:14 Last Admin: 03/14/20 09:26 Dose: 1 applic Documented by: Pantoprazole Sodium (Protonix Iv) 40 mg IVPUSH DAILY [facility] Last Admin: 03/14/20 09:25 Dose: 40 mg Documented by: GENERAL: Poorly responsive on AC Mode of vent HEENT: (-) Pallor NECK: trach in place LUNGS: Vented, coarse breath sounds HEART: Regular rate and rhythm, S1, S2 without murmur, rub or gallop. ABDOMEN: Soft, nontender, nondistended, normoactive bowel sounds, no guarding EXTREMITIES: 2+ pulses, warm, well-perfused, 2+ pitting edema b/l UE Laboratory Results - last 24 hr 03/13/20 03/13/20 03/13/20 06:30 10:00 10:00 WBC 8.4 RBC 3.38 L Hgb 10.2 L Hct 30.8 L D MCV 91.3 MCH 30.1 MCHC 33.0 RDW 18.3 H Plt Count 121 L D MPV 12.5 H Sodium 146 H Potassium 3.0 L Chloride 107 Carbon Dioxide 23 Anion Gap 16 BUN 51.8 H Creatinine 1.8 H Est GFR (CKD-EPI)AfAm 31.14 Est GFR (CKD-EPI)NonAf 26.87 POC Glucometer 105 Random Glucose 89 Calcium 8.4 L Blood Type Antibody Screen 03/13/20 03/13/20 03/13/20 10:06 11:48 17:57 WBC RBC Hgb Hct MCV MCH MCHC RDW Plt Count MPV Sodium Potassium Chloride Carbon Dioxide Anion Gap BUN Creatinine Est GFR (CKD-EPI)AfAm Est GFR (CKD-EPI)NonAf POC Glucometer 65 42 Random Glucose Calcium Blood Type O POSITIVE Antibody Screen Negative 03/13/20 03/13/20 03/13/20 18:52 18:55 19:25 WBC RBC Hgb Hct MCV MCH MCHC RDW Plt Count MPV Sodium Potassium Chloride Carbon Dioxide Anion Gap BUN Creatinine Est GFR (CKD-EPI)AfAm Est GFR (CKD-EPI)NonAf POC Glucometer < 10 < 10 18 Random Glucose Calcium Blood Type Antibody Screen 03/13/20 20:38 WBC RBC Hgb Hct MCV MCH MCHC RDW Plt Count MPV Sodium Potassium Chloride Carbon Dioxide Anion Gap BUN Creatinine Est GFR (CKD-EPI)AfAm Est GFR (CKD-EPI)NonAf POC Glucometer 224 Random Glucose Calcium Blood Type Antibody Screen ASSESSMENT/PLAN: Resolving Hypotension: R/O Sepsis ESRD on HD MCA stroke 01/14/20 R/O PNA IVF resuscitation Minimize Volume removal with HD AC Mode of vent Follow up with [facility] overall prognosis for meaningful survival Can be monitored on the Vent Floor Dr Alonzo
--- NOTE | 2020-03-14 15:18 | PN ---
Progress Note (short form) - Note Progress Note: unresponsive doing poorly transferred to ICU for hypotension transient vasopressin- now off received IVF now on HD Vital Signs Period Temp Pulse Resp BP Sys/Ramirez Pulse Ox Last 24 Hr 97.6 F-99.2 F 83-108 -20 59-129/42-73 95-100 trach to vent cor-rrr llungs decreased bs at bases abd soft,nt ext no edema +unstageable sacral ulcer cxray ?new RLL infiltrate CBC, BMP 03/14/20 05:25 03/14/20 06:00 Microbiology 03/07/20 15:03 Blood - Peripheral Venous Blood Culture - Final NO GROWTH AFTER 5 DAYS INCUBATION 03/07/20 15:03 Blood - Peripheral Venous Blood Culture - Final NO GROWTH AFTER 5 DAYS INCUBATION 03/08/20 00:30 Sputum - Endotrachea Suction/Ventilator Gram Stain - Final 03/08/20 00:30 Sputum - Endotrachea Suction/Ventilator Sputum Culture - Final Enterobacter Aerogenes Yeast Like Organism 03/08/20 05:00 Stool Clostridioides difficile Antigen - Final 03/08/20 05:00 Stool Clostridioides difficile Toxin Assay - Final Active Medications Acetylcysteine (Mucomyst 20 Oral / Inh Use Only*) 200 mg NEB RQID JOSE Last Admin: 03/14/20 11:28 Dose: 200 mg Documented by: Albuterol Sulfate (Ventolin 0.083% Nebulizer Soln -) 1 amp NEB RQID PRN PRN Reason: ASTHMA Last Admin: 03/14/20 11:29 Dose: 1 amp Documented by: Banana Based Medical Food (Banatrol Plus Powder Packet) 1 packet GT TID JOSE Last Admin: 03/14/20 13:17 Dose: 1 packet Documented by: Chlorhexidine Gluconate (Hibiclens For Decolonization -) 1 applic TP HS JOSE Vasopressin 40 units/ Sodium (Chloride) 100 mls @ 5 mls/hr IVPB ASDIR [facility]; Protocol Last Titration: 03/14/20 13:00 Dose: 3 units/hr, 7.5 mls/hr Documented by: Sodium Chloride (Normal Saline -) 1,000 mls @ 42 mls/hr IV ASDIR JOSE Last Admin: 03/14/20 02:46 Dose: 42 mls/hr Documented by: Sodium Chloride (Normal Saline -) 250 mls @ 3,000 mls/hr IV PRN PRN PRN Reason: Hypotension during Dialysis Stop: 03/15/20 10:43 Insulin Aspart (Novolog Vial Sliding Scale -) 1 vial SQ Q6H [facility]; Protocol Last Admin: 03/14/20 12:23 Dose: Not Given Documented by: Insulin Detemir (Levemir Vial) 10 units SQ HS [facility] Last Admin: 03/13/20 23:42 Dose: Not Given Documented by: Mupirocin (Bactroban Ointment (For Decolonization) -) 1 applic NS BID [facility] Stop: 03/18/20 23:14 Last Admin: 03/14/20 09:26 Dose: 1 applic Documented by: Pantoprazole Sodium (Protonix Iv) 40 mg IVPUSH DAILY [facility] Last Admin: 03/14/20 09:25 Dose: 40 mg Documented by: a/p doing poorly possible new RLL infiltrate-cultures sent prolonged qtc .509 will start tygacil and gent cannot give quinolone MDRO enterobacter- strict contact isolation s/p cva chronic resp failure overall prognosis is poor over 35 minutes spent in the care of this critically ill ICU patient
[2020-03-14] MEDS ORDERED: GENTAMICIN 80 MG PREMIXED IVPB 80 MG/100 ML BAG IVPB ONE (15:19)
[2020-03-14] MEDS ORDERED: PT OWN MED DRAWER 7, Y5N ONE (15:28)
[2020-03-14] MEDS ORDERED: TIGECYCLINE 100 MG in DEXTROSE 5%-WATER - 100 ML IVPB ONE (16:30)
[2020-03-14] MEDS ORDERED: LACTATED RINGERS SOLUTION 1,000 ML/1,000 ML INFUS.BAG IV STA (16:46)
--- NOTE | 2020-03-14 17:40 | PN ---
Progress Note, Physician Chief Complaint: Pt remanins trached, mechanically ventilated; largely unresponsive History of Present Illness: Ms. Mccormick is a 74 year old black woman with a past medical history of CVA, ESRD (on hemodialysis) who presents to the emergency department, from [facility], for evaluation of a dislodged PEG tube 3.5 hours ago, per [facility]. Upon arrival of EMS, it was discovered the patient was tachycardic and hypotensive, currently 96/81. The patient is nonverbal at baseline. The patient was admitted 01/13-03/05 for unresponsiveness for two days and was found to have a large, progressing MCA stroke. She has had chronic respiratory failure, and underwent tracheostomy for long-term mechanical ventilation. - Current Medication List Current Medications: Active Medications Acetylcysteine (Mucomyst 20 Oral / Inh Use Only*) 200 mg NEB RQID JOSE Last Admin: 03/14/20 15:38 Dose: 200 mg Documented by: Albuterol Sulfate (Ventolin 0.083% Nebulizer Soln -) 1 amp NEB RQID PRN PRN Reason: ASTHMA Last Admin: 03/14/20 15:39 Dose: 1 amp Documented by: Banana Based Medical Food (Banatrol Plus Powder Packet) 1 packet GT TID JOSE Last Admin: 03/14/20 13:17 Dose: 1 packet Documented by: Chlorhexidine Gluconate (Hibiclens For Decolonization -) 1 applic TP HS JOSE Vasopressin 40 units/ Sodium (Chloride) 100 mls @ 5 mls/hr IVPB ASDIR JOSE; Pro tocol Last Titration: 03/14/20 16:45 Dose: 1 units/hr, 2.5 mls/hr Documented by: Sodium Chloride (Normal Saline -) 1,000 mls @ 42 mls/hr IV ASDIR JOSE Last Admin: 03/14/20 02:46 Dose: 42 mls/hr Documented by: Sodium Chloride (Normal Saline -) 250 mls @ 3,000 mls/hr IV PRN PRN PRN Reason: Hypotension during Dialysis Stop: 03/15/20 10:43 Tigecycline 50 mg/ Dextrose 100 mls @ 100 mls/hr IVPB BID JOSE; Protocol Lactated Ringer's (Lactated Ringers Solution) 1,000 ml in 1,000 mls @ 1,000 m ls/hr IV ONCE STA Stop: 03/14/20 17:45 Last Admin: 03/14/20 16:52 Dose: 1,000 mls/hr Documented by: Insulin Aspart (Novolog Vial Sliding Scale -) 1 vial SQ Q6H [facility]; Protocol Last Admin: 03/14/20 17:25 Dose: Not Given Documented by: Insulin Detemir (Levemir Vial) 10 units SQ HS [facility] Last Admin: 03/13/20 23:42 Dose: Not Given Documented by: Mupirocin (Bactroban Ointment (For Decolonization) -) 1 applic NS BID JOSE Stop: 03/18/20 23:14 Last Admin: 03/14/20 09:26 Dose: 1 applic Documented by: Pantoprazole Sodium (Protonix Iv) 40 mg IVPUSH DAILY [facility] Last Admin: 03/14/20 09:25 Dose: 40 mg Documented by: - Objective Vital Signs: Vital Signs Temperature 97.6 F 03/14/20 14:50 Pulse Rate 98 H 03/14/20 16:45 Respiratory Rate 14 03/14/20 16:00 Blood Pressure 128/66 03/14/20 16:45 O2 Sat by Pulse Oximetry (%) 96 03/14/20 15:37 Constitutional: Yes: Cachectic Eyes: Yes: Tearing Neck: Yes: Decreased ROM, Other (tracheostomy) Cardiovascular: Yes: S1, S2 Respiratory: Yes: Mechanically Ventilated Gastrointestinal: Yes: Other (PEG placement appears intact) Genitourinary: Yes: Other (undergoing hemodialysis periodically) Breast(s): Yes: WNL Musculoskeletal: Yes: Muscle Weakness Extremities: Yes: Cool Edema: Yes Edema: LUE: 1+, RUE: 1+, LLE: Trace, RLE: Trace Peripheral Pulses WNL: No Peripheral Pulses: Left Doralis Pedis: 1+, Right Dorsalis Pedis: 1+ Integumentary: Yes: WNL Neurological: Yes: Unresponsive Psychiatric: Yes: Other Labs: CBC, BMP 03/14/20 05:25 03/14/20 06:00 INR, PTT INR 1.44 (0.83-1.09) H 03/14/20 05:25 - ....Imaging Chest X-ray: Image Reviewed EKG: Image Reviewed Assessment/Plan Ms. Mccormick is a 74 year old black female with a significant past medical history of CVA, ESRD (on HD), DM, LBBB who presents to the emergency department with dislodged PEG tube. The patient was admitted 01/13-03/05 for unresponsiveness for two days and was found to have a large, progressing MCA stroke.Positive TNIs. acute/chronic respiratory failure; s/p tracheostomy, with mechanical ventilation Hypokalemia acute/chronic diastolic CHF. CXR: bilateral infiltrates; new fluid and atelectasis in right base. Plan: Replete electrolytes. BUN/Cr, electrolytes, Is and Os, daily weight. IVF, hemodialysis per embedded hardware engineer. DVT PLX Ventilatory support CC time spent: 35 minutes.
--- NOTE | 2020-03-14 20:36 | PN ---
Physical Exam: SUBJECTIVE: Patient seen and examined trached and nonverbal at baseline. PT in ICU was put on vasopressin drip then given NS liter and bolus of LR and now off vasopressin and BP is MAP>65. Pt went through one round of dialysis in the ICU. Pt then was given another bolus of LR and was weaned off vasopressin. OBJECTIVE: Vital Signs Period Temp Pulse Resp BP Sys/Ramirez Pulse Ox Last 24 Hr 97.6 F-99.2 F 83-108 13-21 78-129/42-73 95-100 GENERAL: The patient is awake, alert, non-verbal. responsive to painful stimuli HEENT: Normal with no signs of trauma. PERRL, moist mucous membranes. NECK: trach in place LUNGS: rhonchi bilaterally HEART: Regular rate and rhythm, S1, S2 without murmur, rub or gallop. ABDOMEN: Soft, nontender, nondistended, normoactive bowel sounds, no guarding EXTREMITIES: 2+ pulses, warm, well-perfused, 2+ pitting edema b/l UE Laboratory Results - last 24 hr 03/13/20 03/14/20 03/14/20 20:38 00:13 05:00 WBC RBC Hgb Hct MCV MCH MCHC RDW Plt Count MPV Absolute Neuts (auto) Neutrophils % Lymphocytes % Monocytes % Eosinophils % Basophils % Nucleated RBC % PT with INR INR PTT (Actin FS) Sodium Potassium Chloride Carbon Dioxide Anion Gap BUN Creatinine Est GFR (CKD-EPI)AfAm Est GFR (CKD-EPI)NonAf POC Glucometer 224 220 136 Random Glucose Lactic Acid Calcium Phosphorus Magnesium Total Bilirubin AST ALT Alkaline Phosphatase Total Protein Albumin 03/14/20 03/14/20 03/14/20 05:25 05:25 06:00 WBC 7.8 RBC 2.49 L Hgb 7.8 L Hct 23.6 L D MCV 94.5 MCH 31.3 MCHC 33.1 RDW 18.9 H Plt Count 97 L MPV 11.7 H Absolute Neuts (auto) 6.6 Neutrophils % 85.3 H Lymphocytes % 8.4 D Monocytes % 4.9 Eosinophils % 0.8 Basophils % 0.6 Nucleated RBC % 1 H PT with INR 17.10 H INR 1.44 H PTT (Actin FS) 39.2 H Sodium 146 H Potassium 3.0 L Chloride 109 H Carbon Dioxide 24 Anion Gap 13 BUN 63.3 H Creatinine 2.2 H Est GFR (CKD-EPI)AfAm 24.43 Est GFR (CKD-EPI)NonAf 21.08 POC Glucometer Random Glucose 175 H Lactic Acid Calcium 8.1 L Phosphorus 2.1 L Magnesium 2.0 Total Bilirubin 0.8 AST 125 H ALT 73 H Alkaline Phosphatase 423 H Total Protein 5.1 L Albumin 0.4 L 03/14/20 03/14/20 03/14/20 06:00 12:04 16:17 WBC RBC Hgb Hct MCV MCH MCHC RDW Plt Count MPV Absolute Neuts (auto) Neutrophils % Lymphocytes % Monocytes % Eosinophils % Basophils % Nucleated RBC % PT with INR INR PTT (Actin FS) Sodium Potassium Chloride Carbon Dioxide Anion Gap BUN Creatinine Est GFR (CKD-EPI)AfAm Est GFR (CKD-EPI)NonAf POC Glucometer 137 129 Random Glucose Lactic Acid 3.0 H* Calcium Phosphorus Magnesium Total Bilirubin AST ALT Alkaline Phosphatase Total Protein Albumin Active Medications Generic Name Dose Route Start Last Admin Trade Name Freq PRN Reason Stop Dose Admin Acetylcysteine 200 mg 03/09/20 08:00 03/14/20 15:38 Mucomyst 20 Oral / Inh Use Only* NEB 200 mg RQID JOSE Administration Albuterol Sulfate 1 amp 03/14/20 07:40 03/14/20 15:39 Ventolin 0.083% Nebulizer Soln - NEB 1 amp RQID PRN Administration ASTHMA Banana Based Medical Food 1 packet 03/13/20 22:00 03/14/20 13:17 Banatrol Plus Powder Packet GT 1 packet TID JOSE Administration Chlorhexidine Gluconate 1 applic 03/14/20 22:00 Hibiclens For Decolonization - TP HS JOSE Vasopressin 40 units/ Sodium 100 mls @ 5 mls/hr 03/14/20 00:15 03/14/20 16:45 Chloride IVPB 1 units/hr ASDIR JOSE 2.5 mls/hr Titration Protocol 2 UNITS/HR Sodium Chloride 1,000 mls @ 42 mls/hr 03/14/20 02:20 03/14/20 02:46 Normal Saline - IV 42 mls/hr ASDIR JOSE Administration Sodium Chloride 250 mls @ 3,000 mls/hr 03/14/20 10:43 Normal Saline - IV 03/15/20 10:43 PRN PRN Hypotension during Dialysis Tigecycline 50 mg/ Dextrose 100 mls @ 100 mls/hr 03/15/20 10:00 IVPB BID [facility] Protocol Insulin Aspart 1 vial 03/09/20 06:00 03/14/20 17:25 Novolog Vial Sliding Scale - SQ Not Given Q6H [facility] Protocol Insulin Detemir 10 units 03/08/20 22:00 03/13/20 23:42 Levemir Vial SQ Not Given HS JOSE Mupirocin 1 applic 03/13/20 23:15 03/14/20 09:26 Bactroban Ointment (For Decolonization) - NS 03/18/20 23:14 1 applic BID JOSE Administration Pantoprazole Sodium 40 mg 03/14/20 10:00 03/14/20 09:25 Protonix Iv IVPUSH 40 mg DAILY JOSE Administration ASSESSMENT/PLAN: 74 YO F PMH of ESRD on HD, MCA stroke 01/14/20 (trach on vent) presents from [facility] for PEG tube dislodgement. Found to be febrile, hypotensive, and tachycardic. Admitted previously to the ICU for sepsis 2/2 PNA. Now admitted to the ICU for hypotension on vasopressin drip Neuro: -H/o MCA stroke. - nonverbal Pulm - s/p Tracheostomy on vent - Keep saturation > 90% -CXR shows bilateral increased interstitial markings Cardio -Hypotension -Maintain BP >65. -vasopressin drip weaned off. Pt was given multiple boluses of LR -troponinemia resolved ID #sepsis 2/2 PNA. - leukocytosis resolved, afebrile - lactic acid -blood culture no growth -c diff antigen/toxin neg -sputum culture (03/08): enterobacter aerogenes, yeast like organism sensitive to amikacin, gentamicin, levofloxacin, tigecycline/tygacil, tobramycin, tmp-smx -s/p one dose vanc & zosyn today - Will start on will start tygacil and gent MDRO enterobacter- strict contact isolatio Renal - ESRD on HD, anuric - Pt received dialysis today GI: -peg tube was replaced in ICU on 03/08/20 -protonix 40 IV PUSH Daily for ppx Endocrine -BGM -ISS Q6H -levemir 10 units SQ HS FEN no ivf monitor lytes tube feed vital 1.2 Lines L femoral line (03/13) PPx - DVT: scds Dispo: Pt can be monitored on vent floor when off vasopressin. Visit type - Emergency Visit Emergency Visit: Yes ED Registration Date: 03/07/20 Care time: The patient presented to the Emergency Department on the above date and was hospitalized for further evaluation of their emergent condition. - New Patient This patient is new to me today: No - Critical Care Critical Care patient: Yes Total Critical Care Time (in minutes): 36 Critical Care Statement: The care of this patient involved high complexity decision making to prevent further life threatening deterioration of the patient's condition and/or to evaluate & treat vital organ system(s) failure or risk of failure. - Medication Review Med list reviewed for High Risk Meds patients 65 and older: Yes ATTENDING PHYSICIAN STATEMENT I saw and evaluated the patient. I reviewed the resident's note and discussed the case with the resident. I agree with the resident's findings and plan as documented. SUBJECTIVE: OBJECTIVE: ASSESSMENT AND PLAN:
[2020-03-14] MEDS: CHLORHEXIDINE GLUCONATE 4% CLEANSER FOR DECOLONIZATION TP SCH (21:03)
[2020-03-14] MEDS: INSULIN (LEVEMIR) 100 UNITS/ML UNITS SQ SCH (21:05)
[2020-03-15] MEDS: INSULIN SLIDING SCALE (NOVOLOG) 1 VIAL SQ SCH ×4 (00:33→18:33)
[2020-03-15 06:53] LABS: BASO % 0.3 % (0-2.0); EOS % 0.9 % (0-4.5); HEMATOCRIT 23.6 % (32.4-45.2); HEMOGLOBIN 7.9 GM/dL (10.7-15.3); LYMPH % 5.8 % (8-40); MCH 31.9 pg (25.7-33.7); MCHC 33.4 g/dl (32.0-36.0); MEAN CELL VOLUME 95.6 fl (80-96); MEAN PLT VOLUME 12.3 fl (7.5-11.1); MONO % 3.6 % (3.8-10.2); NEUT % 89.4 % (42.8-82.8); PLATELET COUNT 120 K/MM3 (134-434); RBC 2.47 M/mm3 (3.60-5.2); RDW 19.1 % (11.6-15.6); WHITE BLOOD COUNT 8.3 K/mm3 (4.0-10.0)
[2020-03-15 07:17] LABS: BILIRUBIN,TOTAL 0.6 mg/dL (0.2-1); BLOOD UREA NITROGEN 45.2 mg/dL (7-18); CALCIUM 7.8 mg/dL (8.5-10.1); CREATININE 1.5 mg/dL (0.55-1.3); MAGNESIUM 1.6 mg/dL (1.8-2.4); PHOSPHOROUS 1.9 mg/dL (2.5-4.9); POTASSIUM 3.4 mmol/L (3.5-5.1); TOT PROT 4.8 g/dl (6.4-8.2)
[2020-03-15] MEDS: ALBUTEROL SO4 0.083% IH SOL 2.5 MG/3 ML VIAL.NEB. NEB PRN ×4 (07:58→20:35)
[2020-03-15] MEDS: ACETYLCYSTEINE 20% 200MG/ML 4 ML VIAL *FOR ORAL / INH USE ONLY NEB SCH ×4 (07:58→20:35)
[2020-03-15] MEDS ORDERED: LACTATED RINGERS SOLUTION 1000 ML INFUS.BAG IV ONE (08:06)
--- NOTE | 2020-03-15 08:09 | PN ---
Progress Note, Physician History of Present Illness: The patient is a 74 year old female with a significant past medical history of CVA, ESRD (on HD, normal session yesterday) who presents to the emergency department, from [facility], for evaluation of a dislodged PEG tube 3.5 hours ago, per [facility]. Upon arrival of EMS, it was discovered the patient is tachycardic and hypotensive, currently 96/81. The patient is nonverbal at baseline. The patient was admitted 01/13-03/05 for unresponsiveness for two days and was found to have a large, progressing MCA stroke. - Current Medication List Current Medications: Active Medications Acetylcysteine (Mucomyst 20 Oral / Inh Use Only*) 200 mg NEB RQID JOSE Last Admin: 03/15/20 07:58 Dose: 200 mg Documented by: Albuterol Sulfate (Ventolin 0.083% Nebulizer Soln -) 1 amp NEB RQID PRN PRN Reason: ASTHMA Last Admin: 03/15/20 07:58 Dose: 1 amp Documented by: Banana Based Medical Food (Banatrol Plus Powder Packet) 1 packet GT TID JOSE Last Admin: 03/14/20 21:05 Dose: 1 packet Documented by: Chlorhexidine Gluconate (Hibiclens For Decolonization -) 1 applic TP HS JOSE Last Admin: 03/14/20 21:03 Dose: 1 applic Documented by: Vasopressin 40 units/ Sodium (Chloride) 100 mls @ 5 mls/hr IVPB ASDIR JOSE; Protocol Last Admin: 03/14/20 20:31 Dose: 2 units/hr, 5 mls/hr Documented by: Sodium Chloride (Normal Saline -) 1,000 mls @ 42 mls/hr IV ASDIR JOSE Last Admin: 03/14/20 02:46 Dose: 42 mls/hr Documented by: Sodium Chloride (Normal Saline -) 250 mls @ 3,000 mls/hr IV PRN PRN PRN Reason: Hypotension during Dialysis Stop: 03/15/20 10:43 Tigecycline 50 mg/ Dextrose 100 mls @ 100 mls/hr IVPB BID JOSE; Protocol Insulin Aspart (Novolog Vial Sliding Scale -) 1 vial SQ Q6H JOSE; Protocol Last Admin: 03/15/20 05:41 Dose: 2 unit Documented by: Insulin Detemir (Levemir Vial) 10 units SQ HS [facility] Last Admin: 03/14/20 21:05 Dose: 10 units Documented by: Lactated Ringer's (Lactated Ringers Solution) 500 ml IV ONCE ONE Stop: 03/15/20 08:07 Mupirocin (Bactroban Ointment (For Decolonization) -) 1 applic NS BID [facility] Stop: 03/18/20 23:14 Last Admin: 03/14/20 21:03 Dose: 1 applic Documented by: Pantoprazole Sodium (Protonix Iv) 40 mg IVPUSH DAILY [facility] Last Admin: 03/14/20 09:25 Dose: 40 mg Documented by: - Objective Vital Signs: Vital Signs Temperature 97.5 F L 03/15/20 06:00 Pulse Rate 102 H 03/15/20 08:06 Respiratory Rate 18 03/15/20 08:06 Blood Pressure 112/59 L 03/15/20 06:00 O2 Sat by Pulse Oximetry (%) 99 03/15/20 08:06 Eyes: Yes: WNL, Conjunctiva Clear, EOM Intact HENT: Yes: WNL, Atraumatic, Normocephalic Neck: Yes: WNL, Supple, Trachea Midline Cardiovascular: Yes: WNL, Regular Rate and Rhythm Respiratory: Yes: Intubated, Mechanically Ventilated Gastrointestinal: Yes: WNL, Normal Bowel Sounds Genitourinary: Yes: WNL Musculoskeletal: Yes: WNL Extremities: Yes: WNL Edema: No Integumentary: Yes: WNL Labs: CBC, BMP 03/15/20 05:30 03/15/20 05:30 INR, PTT INR 1.44 (0.83-1.09) H 03/14/20 05:25 Problem List - Problems (1) Sepsis Code(s): A41.9 - SEPSIS, UNSPECIFIED ORGANISM Qualifiers: Sepsis type: sepsis due to unspecified organism Sepsis acute organ dysfunction status: unspecified Qualified Code(s): A41.9 - Sepsis, unspecified organism (2) Altered mental status Code(s): R41.82 - ALTERED MENTAL STATUS, UNSPECIFIED (3) Anemia Code(s): D64.9 - ANEMIA, UNSPECIFIED (4) Clotted dialysis access Code(s): T82.49XA - OTH COMPLICATION OF VASCULAR DIALYSIS CATHETER, INIT ENCNTR (5) Diabetes Code(s): E11.9 - TYPE 2 DIABETES MELLITUS WITHOUT COMPLICATIONS (6) ESRD on dialysis Code(s): N18.6 - END STAGE RENAL DISEASE; Z99.2 - DEPENDENCE ON RENAL DIALYSIS (7) Hypertension Code(s): I10 - ESSENTIAL (PRIMARY) HYPERTENSION (8) Lactic acidosis Code(s): E87.2 - ACIDOSIS (9) Pneumonia, aspiration Code(s): J69.0 - PNEUMONITIS DUE TO INHALATION OF FOOD AND VOMIT (10) SOB (shortness of breath) Code(s): R06.02 - SHORTNESS OF BREATH (11) Stroke Code(s): I63.9 - CEREBRAL INFARCTION, UNSPECIFIED Assessment/Plan Ms. Mccormick is a 74 year old black female with a significant past medical history of CVA, ESRD (on HD), DM, LBBB who presents to the emergency department with dislodged PEG tube. The patient was admitted 01/13-03/05 for unresponsiveness for two days and was found to have a large, progressing MCA stroke.Positive TNIs. acute/chronic respiratory failure; s/p tracheostomy, with mechanical ventilation Hypokalemia acute/chronic diastolic CHF. CXR: bilateral infiltrates; new fluid and atelectasis in right base. Plan: Replete electrolytes. BUN/Cr, electrolytes, Is and Os, daily weight. IVF, hemodialysis per salesperson stereo equipment. DVT PLX Ventilatory support CC time spent: 35 minutes.
[2020-03-15] MEDS ORDERED: MAGNESIUM 2GM/50ML STERILE WATER IVPB IVPB ONE (08:30)
[2020-03-15] MEDS ORDERED: POTASSIUM PHOSPHATE 10 MM in SODIUM CHLORIDE 250 ML IVPB ONE (08:30)
[2020-03-15] MEDS ORDERED: KCL 10 MEQ IVPB 10 MEQ/100 ML INFUS.BAG IVPB SCH (08:30)
[2020-03-15] MEDS: VASOPRESSIN 40 UNITS in SODIUM CHLORIDE 98 ML IVPB SCH (08:41)
[2020-03-15] MEDS ORDERED: PT OWN MED DRAWER 7, Y5N ONE ×3 (09:04→22:35)
[2020-03-15] MEDS: TIGECYCLINE 50 MG in DEXTROSE 5%-WATER - 100 ML IVPB SCH ×2 (09:18→22:44)
[2020-03-15] MEDS: PANTOPRAZOLE SODIUM 40 MG VIAL IVPUSH SCH (09:18)
[2020-03-15 09:20] LABS: ANISOCYTOSIS 0; MACROCYTOSIS 0; PLATELET ESTIMATE DECREASED
[2020-03-15] MEDS: MUPIROCIN 2% TOPICAL OINTMENT FOR DECOLONIZATION NS SCH ×3 (09:20→22:40)
--- NOTE | 2020-03-15 10:41 | PN ---
Progress Note (short form) - Note Progress Note: unresponsive back on pressors- vasopressin s/p HD yesterday trach to vent Vital Signs Period Temp Pulse Resp BP Sys/Ramirez Pulse Ox Last 24 Hr 97.5 F-98.6 F 91-108 14-21 78-128/48-67 90-100 cor-rrr lungs decreased bs at bases abd soft,nt ext +edema +unstageable sacral ulcer cxray RLL infiltrate (new) CBC, BMP 03/15/20 05:30 03/15/20 05:30 a/p doing poorly possible new RLL infiltrate-cultures sent prolonged qtc .509 will start tygacil and gent based on prior culture results, repeat cultures sent and pending- need to redose gent after next HD cannot give quinolone MDRO enterobacter- strict contact isolation s/p cva chronic resp failure esrd/hd overall prognosis is poor
--- NOTE | 2020-03-15 13:03 | PN ---
Progress Note, Physician History of Present Illness: Pt seen/ examined in icu chart is reviewed Vent dependent on pressor support. Unresponsive - Current Medication List Current Medications: Active Medications Acetylcysteine (Mucomyst 20 Oral / Inh Use Only*) 200 mg NEB RQID JOSE Last Admin: 03/15/20 11:40 Dose: 200 mg Documented by: Albuterol Sulfate (Ventolin 0.083% Nebulizer Soln -) 1 amp NEB RQID PRN PRN Reason: ASTHMA Last Admin: 03/15/20 11:40 Dose: 1 amp Documented by: Banana Based Medical Food (Banatrol Plus Powder Packet) 1 packet GT TID JOSE Last Admin: 03/14/20 21:05 Dose: 1 packet Documented by: Chlorhexidine Gluconate (Hibiclens For Decolonization -) 1 applic TP HS [facility] Last Admin: 03/14/20 21:03 Dose: 1 applic Documented by: Heparin Sodium (Porcine) (Heparin -) 5,000 unit SQ TID JOSE Vasopressin 40 units/ Sodium (Chloride) 100 mls @ 5 mls/hr IVPB ASDIR JOSE; Protocol Last Admin: 03/15/20 08:41 Dose: Not Given Documented by: Sodium Chloride (Normal Saline -) 1,000 mls @ 42 mls/hr IV ASDIR JOSE Last Admin: 03/14/20 02:46 Dose: 42 mls/hr Documented by: Sodium Chloride (Normal Saline -) 250 mls @ 3,000 mls/hr IV PRN PRN PRN Reason: Hypotension during Dialysis Stop: 03/15/20 10:43 Tigecycline 50 mg/ Dextrose 100 mls @ 100 mls/hr IVPB BID JOSE; Protocol Last Admin: 03/15/20 09:18 Dose: 100 mls/hr Documented by: Insulin Aspart (Novolog Vial Sliding Scale -) 1 vial SQ Q6H [facility]; Protocol Last Admin: 03/15/20 05:41 Dose: 2 unit Documented by: Insulin Detemir (Levemir Vial) 10 units SQ HS [facility] Last Admin: 03/14/20 21:05 Dose: 10 units Documented by: Mupirocin (Bactroban Ointment (For Decolonization) -) 1 applic NS BID [facility] Stop: 03/18/20 23:14 Last Admin: 03/15/20 09:26 Dose: 1 applic Documented by: Pantoprazole Sodium (Protonix Iv) 40 mg IVPUSH DAILY JOSE Last Admin: 03/15/20 09:18 Dose: 40 mg Documented by: - Objective Vital Signs: Vital Signs Temperature 97.5 F L 03/15/20 06:00 Pulse Rate 101 H 03/15/20 12:00 Respiratory Rate 16 03/15/20 12:12 Blood Pressure 131/63 03/15/20 12:00 O2 Sat by Pulse Oximetry (%) 99 03/15/20 12:15 Neck: Yes: Other (trach- vent) Cardiovascular: Yes: Regular Rate and Rhythm Respiratory: Yes: Diminished Gastrointestinal: Yes: Soft, Other (g tube) Edema: LLE: 2+, RLE: 2+ Neurological: Yes: Other (unresponsive) Labs: CBC, BMP 03/15/20 05:30 03/15/20 05:30 INR, PTT INR 1.44 (0.83-1.09) H 03/14/20 05:25 - ....Imaging Chest X-ray: Report Reviewed Problem List - Problems (1) Hyperglycemia Code(s): R73.9 - HYPERGLYCEMIA, UNSPECIFIED (2) Sepsis Code(s): A41.9 - SEPSIS, UNSPECIFIED ORGANISM Qualifiers: Sepsis type: sepsis due to unspecified organism Sepsis acute organ dysfunction status: unspecified Qualified Code(s): A41.9 - Sepsis, unspecified organism (3) ESRD on dialysis Code(s): N18.6 - END STAGE RENAL DISEASE; Z99.2 - DEPENDENCE ON RENAL DIALYSIS (4) Lactic acidosis Code(s): E87.2 - ACIDOSIS (5) Pneumonia, aspiration Code(s): J69.0 - PNEUMONITIS DUE TO INHALATION OF FOOD AND VOMIT (6) Stroke Code(s): I63.9 - CEREBRAL INFARCTION, UNSPECIFIED Assessment/Plan Sepsis CVA- Extensive Pneumonia ESRD HYpotension Respiratory failure- Vent dependent Diabetes Continue present care Prognosis poor Will follow cc time approx 35 min Family wants everything to be done.
--- NOTE | 2020-03-15 13:09 | PN ---
Physical Exam: SUBJECTIVE: Patient seen and examined trached. Pt still on vasopressin drip. Trying to titrate vasopressin and drip and started patient on midodrine. OBJECTIVE: Vital Signs Period Temp Pulse Resp BP Sys/Ramirez Pulse Ox Last 24 Hr 97.5 F-98.6 F 91-107 14-21 78-131/48-67 90-100 GENERAL: The patient is awake, alert, non-verbal. responsive to painful stimuli HEENT: Normal with no signs of trauma. PERRL, moist mucous membranes. NECK: trach in place LUNGS: rhonchi bilaterally HEART: Regular rate and rhythm, S1, S2 without murmur, rub or gallop. ABDOMEN: Soft, nontender, nondistended, normoactive bowel sounds, no guarding EXTREMITIES: 2+ pulses, warm, well-perfused, 2+ pitting edema b/l UE Laboratory Results - last 24 hr 03/12/20 03/14/20 03/14/20 09:10 16:17 21:01 WBC RBC Hgb Hct MCV MCH MCHC RDW Plt Count MPV Absolute Neuts (auto) Neutrophils % Neutrophils % (Manual) Band Neutrophils % Lymphocytes % Lymphocytes % (Manual) Monocytes % Monocytes % (Manual) Eosinophils % Eosinophils % (Manual) Basophils % Basophils % (Manual) Myelocytes % (Man) Promyelocytes % (Man) Blast Cells % (Manual) Nucleated RBC % Metamyelocytes Hypochromia Platelet Estimate Polychromasia Poikilocytosis Anisocytosis Microcytosis Macrocytosis Sodium Potassium Chloride Carbon Dioxide Anion Gap BUN Creatinine Est GFR (CKD-EPI)AfAm Est GFR (CKD-EPI)NonAf POC Glucometer 129 225 Random Glucose Lactic Acid Calcium Phosphorus Magnesium Total Bilirubin AST ALT Alkaline Phosphatase Total Protein Albumin Blood Type O POSITIVE Antibody Screen Negative Crossmatch See Detail 03/15/20 03/15/20 03/15/20 00:30 05:29 05:30 WBC RBC Hgb Hct MCV MCH MCHC RDW Plt Count MPV Absolute Neuts (auto) Neutrophils % Neutrophils % (Manual) Band Neutrophils % Lymphocytes % Lymphocytes % (Manual) Monocytes % Monocytes % (Manual) Eosinophils % Eosinophils % (Manual) Basophils % Basophils % (Manual) Myelocytes % (Man) Promyelocytes % (Man) Blast Cells % (Manual) Nucleated RBC % Metamyelocytes Hypochromia Platelet Estimate Polychromasia Poikilocytosis Anisocytosis Microcytosis Macrocytosis Sodium Potassium Chloride Carbon Dioxide Anion Gap BUN Creatinine Est GFR (CKD-EPI)AfAm Est GFR (CKD-EPI)NonAf POC Glucometer 288 189 Random Glucose Lactic Acid 4.4 H* Calcium Phosphorus Magnesium Total Bilirubin AST ALT Alkaline Phosphatase Total Protein Albumin Blood Type Antibody Screen Crossmatch 03/15/20 03/15/20 05:30 05:30 WBC 8.3 RBC 2.47 L Hgb 7.9 L Hct 23.6 L MCV 95.6 MCH 31.9 MCHC 33.4 RDW 19.1 H Plt Count 120 L D MPV 12.3 H Absolute Neuts (auto) 7.4 Neutrophils % 89.4 H Neutrophils % (Manual) 76.0 Band Neutrophils % 11.0 Lymphocytes % 5.8 L D Lymphocytes % (Manual) 4.0 L D Monocytes % 3.6 L Monocytes % (Manual) 8 D Eosinophils % 0.9 Eosinophils % (Manual) 1.0 Basophils % 0.3 Basophils % (Manual) 0.0 Myelocytes % (Man) 0 Promyelocytes % (Man) 0 Blast Cells % (Manual) 0 Nucleated RBC % 0 Metamyelocytes 0 D Hypochromia 0 Platelet Estimate Decreased Polychromasia 1+ Poikilocytosis 0 Anisocytosis 0 Microcytosis 0 Macrocytosis 0 Sodium 141 Potassium 3.4 L Chloride 105 Carbon Dioxide 25 Anion Gap 12 BUN 45.2 H Creatinine 1.5 H Est GFR (CKD-EPI)AfAm 38.82 Est GFR (CKD-EPI)NonAf 33.49 POC Glucometer Random Glucose 218 H Lactic Acid Calcium 7.8 L Phosphorus 1.9 L Magnesium 1.6 L Total Bilirubin 0.6 AST 73 H ALT 67 H Alkaline Phosphatase 446 H Total Protein 4.8 L Albumin 1.0 L Blood Type Antibody Screen Crossmatch Active Medications Generic Name Dose Route Start Last Admin Trade Name Freq PRN Reason Stop Dose Admin Acetylcysteine 200 mg 03/09/20 08:00 03/15/20 11:40 Mucomyst 20 Oral / Inh Use Only* NEB 200 mg RQID JOSE Administration Albuterol Sulfate 1 amp 03/14/20 07:40 03/15/20 11:40 Ventolin 0.083% Nebulizer Soln - NEB 1 amp RQID PRN Administration ASTHMA Banana Based Medical Food 1 packet 03/13/20 22:00 03/14/20 21:05 Banatrol Plus Powder Packet GT 1 packet TID JOSE Administration Chlorhexidine Gluconate 1 applic 03/14/20 22:00 03/14/20 21:03 Hibiclens For Decolonization - TP 1 applic HS JOSE Administration Heparin Sodium (Porcine) 5,000 unit 03/15/20 14:00 Heparin - SQ TID JOSE Vasopressin 40 units/ Sodium 100 mls @ 5 mls/hr 03/14/20 00:15 03/15/20 08:41 Chloride IVPB Not Given ASDIR JOSE Protocol 2 UNITS/HR Sodium Chloride 1,000 mls @ 42 mls/hr 03/14/20 02:20 03/14/20 02:46 Normal Saline - IV 42 mls/hr ASDIR JOSE Administration Sodium Chloride 250 mls @ 3,000 mls/hr 03/14/20 10:43 Normal Saline - IV 03/15/20 10:43 PRN PRN Hypotension during Dialysis Tigecycline 50 mg/ Dextrose 100 mls @ 100 mls/hr 03/15/20 10:00 03/15/20 09:18 IVPB 100 mls/hr BID JOSE Administration Protocol Insulin Aspart 1 vial 03/09/20 06:00 03/15/20 05:41 Novolog Vial Sliding Scale - SQ 2 unit Q6H JOSE Administration Protocol Insulin Detemir 10 units 03/08/20 22:00 03/14/20 21:05 Levemir Vial SQ 10 units HS JOSE Administration Mupirocin 1 applic 03/13/20 23:15 03/15/20 09:26 Bactroban Ointment (For Decolonization) - NS 03/18/20 23:14 1 applic BID JOSE Administration Pantoprazole Sodium 40 mg 03/14/20 10:00 03/15/20 09:18 Protonix Iv IVPUSH 40 mg DAILY JOSE Administration ASSESSMENT/PLAN: 74 YO F PMH of ESRD on HD, MCA stroke 01/14/20 (trach on vent) presents from [facility] for PEG tube dislodgement. Found to be febrile, hypotensive, and tachycardic. Admitted previously to the ICU for sepsis 2/2 PNA. Now admitted to the ICU for hypotension on vasopressin drip Neuro: -H/o MCA stroke. - nonverbal Pulm - s/p Tracheostomy on vent - Keep saturation > 90% -CXR shows bilateral increased interstitial markings Cardio -Hypotension -Maintain BP >65. -vasopressin drip started again last night due to low BP. Pt will be started on midodrine 5mg TID for low bp and be tried to wean off vasopressin. -troponinemia resolved -need to continuous monitor QTc ID #sepsis 08/06 PNA. - leukocytosis resolved, afebrile - lactic acid -blood culture no growth -c diff antigen/toxin neg -sputum culture (03/08): enterobacter aerogenes, yeast like organism sensitive to amikacin, gentamicin, levofloxacin, tigecycline/tygacil, tobramycin, tmp-smx - On tygacil and gent Day 2 MDRO enterobacter- strict contact isolatio - Redone cultures on pt Renal - ESRD on HD, anuric - Pt received dialysis yesterday GI: -peg tube was replaced in ICU on 03/08/20 -protonix 40 IV PUSH Daily for ppx Endocrine -BGM -ISS Q6H -levemir 10 units SQ HS FEN no ivf monitor lytes tube feed vital 1.2 Lines L femoral line (03/13)- if pressors need to be maintained take out 03/16 and put another one in. PPx - DVT: scds Dispo: Pt can be monitored on vent floor when off vasopressin. Visit type - Emergency Visit Emergency Visit: Yes ED Registration Date: 03/07/20 Care time: The patient presented to the Emergency Department on the above date and was hospitalized for further evaluation of their emergent condition. - New Patient This patient is new to me today: No - Critical Care Critical Care patient: Yes Total Critical Care Time (in minutes): 36 Critical Care Statement: The care of this patient involved high complexity decision making to prevent further life threatening deterioration of the patient's condition and/or to evaluate & treat vital organ system(s) failure or risk of failure. - Medication Review Med list reviewed for High Risk Meds patients 65 and older: Yes ATTENDING PHYSICIAN STATEMENT I saw and evaluated the patient. I reviewed the resident's note and discussed the case with the resident. I agree with the resident's findings and plan as documented. SUBJECTIVE: OBJECTIVE: ASSESSMENT AND PLAN:
--- NOTE | 2020-03-15 13:50 | PN ---
Progress Note (short form) - Note Progress Note: RENAL remains in icu unchanged Last Vital Signs Temp Pulse Resp BP Pulse Ox 97.5 F L 101 H 16 131/63 99 03/15/20 06:00 03/15/20 12:00 03/15/20 12:12 03/15/20 12:00 03/15/20 12:15 lungs clear bilat cvs s1s2 rr abd soft ext has upper extremity edema neuro not responsive, eyes fully open CBC, BMP 03/15/20 05:30 03/15/20 05:30 Current Medications Generic Name Dose Route Start Last Admin Trade Name Freq PRN Reason Stop Dose Admin Acetylcysteine 200 mg 03/09/20 08:00 03/15/20 11:40 Mucomyst 20 Oral / Inh Use Only* NEB 200 mg RQID JOSE Administration Albuterol Sulfate 1 amp 03/14/20 07:40 03/15/20 11:40 Ventolin 0.083% Nebulizer Soln - NEB 1 amp RQID PRN Administration ASTHMA Banana Based Medical Food 1 packet 03/13/20 22:00 03/14/20 21:05 Banatrol Plus Powder Packet GT 1 packet TID JOSE Administration Chlorhexidine Gluconate 1 applic 03/14/20 22:00 03/14/20 21:03 Hibiclens For Decolonization - TP 1 applic HS JOSE Administration Heparin Sodium (Porcine) 5,000 unit 03/15/20 14:00 Heparin - SQ TID JOSE Vasopressin 40 units/ Sodium 100 mls @ 5 mls/hr 03/14/20 00:15 03/15/20 08:41 Chloride IVPB Not Given ASDIR JOSE Protocol 2 UNITS/HR Sodium Chloride 1,000 mls @ 42 mls/hr 03/14/20 02:20 03/14/20 02:46 Normal Saline - IV 42 mls/hr ASDIR JOSE Administration Sodium Chloride 250 mls @ 3,000 mls/hr 03/14/20 10:43 Normal Saline - IV 03/15/20 10:43 PRN PRN Hypotension during Dialysis Tigecycline 50 mg/ Dextrose 100 mls @ 100 mls/hr 03/15/20 10:00 03/15/20 09:18 IVPB 100 mls/hr BID JOSE Administration Protocol Insulin Aspart 1 vial 03/09/20 06:00 03/15/20 05:41 Novolog Vial Sliding Scale - SQ 2 unit Q6H JOSE Administration Protocol Insulin Detemir 10 units 03/08/20 22:00 03/14/20 21:05 Levemir Vial SQ 10 units HS JOSE Administration Midodrine 5 mg 03/15/20 14:00 Proamatine - PO TID-MID JOSE Mupirocin 1 applic 03/13/20 23:15 03/15/20 09:26 Bactroban Ointment (For Decolonization) - NS 03/18/20 23:14 1 applic BID JOSE Administration Pantoprazole Sodium 40 mg 03/14/20 10:00 03/15/20 09:18 Protonix Iv IVPUSH 40 mg DAILY JOSE Administration Impression ESRD S/P CVA x2 septic on pressors ?new onset dm s/p hypoglycemic episode. anemia worsened lactic acidosis due to sepsis +/- broncho dilators PLAN monitor hgb continue insulin antibiotics per ID poor prognosis no acute indication for hd MV
--- NOTE | 2020-03-15 14:06 | PN ---
Teaching Attending Note Name of Resident: Conner Davison ATTENDING PHYSICIAN STATEMENT I saw and evaluated the patient. I reviewed the resident's note and discussed the case with the resident. I agree with the resident's findings and plan as documented. SUBJECTIVE: Patient seen and examined in the ICU. Remains on 3 units Vasopressin for hemodynamic support. Poorly responsive on AC Mode of vent. CXR: RLL infiltrate Intake & Output 03/12/20 03/13/20 03/14/20 03/15/20 23:59 23:59 23:59 23:59 Intake Total 6707 501 1871 1850.0 Output Total 89512 98917 0 Balance -9481 576 -5957 1850.0 Weight 107 lb 11.2 oz 92 lb 93 lb 7.616 oz Last Vital Signs Temp Pulse Resp BP Pulse Ox 97.5 F L 101 H 16 131/63 99 03/15/20 06:00 03/15/20 12:00 03/15/20 12:12 03/15/20 12:00 03/15/20 12:15 Active Medications Acetylcysteine (Mucomyst 20 Oral / Inh Use Only*) 200 mg NEB RQID JOSE Last Admin: 03/15/20 11:40 Dose: 200 mg Documented by: Albuterol Sulfate (Ventolin 0.083% Nebulizer Soln -) 1 amp NEB RQID PRN PRN Reason: ASTHMA Last Admin: 03/15/20 11:40 Dose: 1 amp Documented by: Banana Based Medical Food (Banatrol Plus Powder Packet) 1 packet GT TID JOSE Last Admin: 03/14/20 21:05 Dose: 1 packet Documented by: Chlorhexidine Gluconate (Hibiclens For Decolonization -) 1 applic TP HS JOSE Last Admin: 03/14/20 21:03 Dose: 1 applic Documented by: Heparin Sodium (Porcine) (Heparin -) 5,000 unit SQ TID JOSE Vasopressin 40 units/ Sodium (Chloride) 100 mls @ 5 mls/hr IVPB ASDIR JOSE; Protocol Last Admin: 03/15/20 08:41 Dose: Not Given Documented by: Sodium Chloride (Normal Saline -) 1,000 mls @ 42 mls/hr IV ASDIR JOSE Last Admin: 03/14/20 02:46 Dose: 42 mls/hr Documented by: Sodium Chloride (Normal Saline -) 250 mls @ 3,000 mls/hr IV PRN PRN PRN Reason: Hypotension during Dialysis Stop: 03/15/20 10:43 Tigecycline 50 mg/ Dextrose 100 mls @ 100 mls/hr IVPB BID [facility]; Protocol Last Admin: 03/15/20 09:18 Dose: 100 mls/hr Documented by: Insulin Aspart (Novolog Vial Sliding Scale -) 1 vial SQ Q6H [facility]; Protocol Last Admin: 03/15/20 05:41 Dose: 2 unit Documented by: Insulin Detemir (Levemir Vial) 10 units SQ HS [facility] Last Admin: 03/14/20 21:05 Dose: 10 units Documented by: Midodrine (Proamatine -) 5 mg PO TID-MID [facility] Mupirocin (Bactroban Ointment (For Decolonization) -) 1 applic NS BID [facility] Stop: 03/18/20 23:14 Last Admin: 03/15/20 09:26 Dose: 1 applic Documented by: Pantoprazole Sodium (Protonix Iv) 40 mg IVPUSH DAILY [facility] Last Admin: 03/15/20 09:18 Dose: 40 mg Documented by: GENERAL: Poorly responsive on AC Mode of vent HEENT: (-) Pallor NECK: trach in place LUNGS: Vented, coarse breath sounds HEART: Regular rate and rhythm, S1, S2 without murmur, rub or gallop. ABDOMEN: Soft, nontender, nondistended, normoactive bowel sounds, no guarding EXTREMITIES: 2+ pulses, warm, well-perfused, 2+ pitting edema b/l UE Laboratory Results - last 24 hr 03/12/20 03/14/20 03/14/20 09:10 16:17 21:01 WBC RBC Hgb Hct MCV MCH MCHC RDW Plt Count MPV Absolute Neuts (auto) Neutrophils % Neutrophils % (Manual) Band Neutrophils % Lymphocytes % Lymphocytes % (Manual) Monocytes % Monocytes % (Manual) Eosinophils % Eosinophils % (Manual) Basophils % Basophils % (Manual) Myelocytes % (Man) Promyelocytes % (Man) Blast Cells % (Manual) Nucleated RBC % Metamyelocytes Hypochromia Platelet Estimate Polychromasia Poikilocytosis Anisocytosis Microcytosis Macrocytosis Sodium Potassium Chloride Carbon Dioxide Anion Gap BUN Creatinine Est GFR (CKD-EPI)AfAm Est GFR (CKD-EPI)NonAf POC Glucometer 129 225 Random Glucose Lactic Acid Calcium Phosphorus Magnesium Total Bilirubin AST ALT Alkaline Phosphatase Total Protein Albumin Blood Type O POSITIVE Antibody Screen Negative Crossmatch See Detail 03/15/20 03/15/20 03/15/20 00:30 05:29 05:30 WBC RBC Hgb Hct MCV MCH MCHC RDW Plt Count MPV Absolute Neuts (auto) Neutrophils % Neutrophils % (Manual) Band Neutrophils % Lymphocytes % Lymphocytes % (Manual) Monocytes % Monocytes % (Manual) Eosinophils % Eosinophils % (Manual) Basophils % Basophils % (Manual) Myelocytes % (Man) Promyelocytes % (Man) Blast Cells % (Manual) Nucleated RBC % Metamyelocytes Hypochromia Platelet Estimate Polychromasia Poikilocytosis Anisocytosis Microcytosis Macrocytosis Sodium Potassium Chloride Carbon Dioxide Anion Gap BUN Creatinine Est GFR (CKD-EPI)AfAm Est GFR (CKD-EPI)NonAf POC Glucometer 288 189 Random Glucose Lactic Acid 4.4 H* Calcium Phosphorus Magnesium Total Bilirubin AST ALT Alkaline Phosphatase Total Protein Albumin Blood Type Antibody Screen Crossmatch 03/15/20 03/15/20 05:30 05:30 WBC 8.3 RBC 2.47 L Hgb 7.9 L Hct 23.6 L MCV 95.6 MCH 31.9 MCHC 33.4 RDW 19.1 H Plt Count 120 L D MPV 12.3 H Absolute Neuts (auto) 7.4 Neutrophils % 89.4 H Neutrophils % (Manual) 76.0 Band Neutrophils % 11.0 Lymphocytes % 5.8 L D Lymphocytes % (Manual) 4.0 L D Monocytes % 3.6 L Monocytes % (Manual) 8 D Eosinophils % 0.9 Eosinophils % (Manual) 1.0 Basophils % 0.3 Basophils % (Manual) 0.0 Myelocytes % (Man) 0 Promyelocytes % (Man) 0 Blast Cells % (Manual) 0 Nucleated RBC % 0 Metamyelocytes 0 D Hypochromia 0 Platelet Estimate Decreased Polychromasia 1+ Poikilocytosis 0 Anisocytosis 0 Microcytosis 0 Macrocytosis 0 Sodium 141 Potassium 3.4 L Chloride 105 Carbon Dioxide 25 Anion Gap 12 BUN 45.2 H Creatinine 1.5 H Est GFR (CKD-EPI)AfAm 38.82 Est GFR (CKD-EPI)NonAf 33.49 POC Glucometer Random Glucose 218 H Lactic Acid Calcium 7.8 L Phosphorus 1.9 L Magnesium 1.6 L Total Bilirubin 0.6 AST 73 H ALT 67 H Alkaline Phosphatase 446 H Total Protein 4.8 L Albumin 1.0 L Blood Type Antibody Screen Crossmatch ASSESSMENT/PLAN: Septic Shock ESRD on HD MCA stroke 01/14/20 R/O PNA Pressors to maintain MAP > 65 IVF resuscitation Minimize Volume removal with HD Midodrine AC Mode of vent Requires ICU monitoring for pressors Grave overall prognosis for meaningful survival Dr Alonzo Critical care time spent in reviewing chart, evaluating patient and formulating plan - 36 minutes.
[2020-03-15] MEDS: MIDODRINE HCL 5 MG TABLET PO SCH ×2 (15:12→18:29)
[2020-03-15] MEDS: HEPARIN NA (PORCINE) 5,000 UNITS/ML 1ML VIAL SQ SCH ×2 (15:12→22:42)
[2020-03-15] MEDS: BANATROL PLUS POWDER PACKET GT SCH ×3 (15:12→22:41)
[2020-03-15] MEDS: SODIUM CHLORIDE 1,000 ML IV SCH (18:25)
[2020-03-15] MEDS: CHLORHEXIDINE GLUCONATE 4% CLEANSER FOR DECOLONIZATION TP SCH (22:42)
[2020-03-15] MEDS: INSULIN (LEVEMIR) 100 UNITS/ML UNITS SQ SCH (22:43)
[2020-03-16] MEDS: INSULIN SLIDING SCALE (NOVOLOG) 1 VIAL SQ SCH ×4 (00:14→18:45)
[2020-03-16] MEDS: FENTANYL NS IVPB 500 MCG/100 ML BAG IVPB SCH ×2 (00:56→13:59)
[2020-03-16] MEDS: VASOPRESSIN 40 UNITS in SODIUM CHLORIDE 98 ML IVPB SCH ×2 (02:30→09:03)
[2020-03-16] MEDS ORDERED: ACETAMINOPHEN 1000 MG/100 ML VIAL (NON FORMULARY) IVPB ONE (03:15)
[2020-03-16] MEDS: BANATROL PLUS POWDER PACKET GT SCH ×2 (05:46→14:15)
[2020-03-16] MEDS: HEPARIN NA (PORCINE) 5,000 UNITS/ML 1ML VIAL SQ SCH ×2 (05:46→14:15)
[2020-03-16] MEDS: SODIUM CHLORIDE 1,000 ML IV SCH (05:46)
[2020-03-16] MEDS ORDERED: LACTATED RINGERS SOLUTION 1000 ML INFUS.BAG IV ONE ×2 (05:53→06:00)
[2020-03-16] MEDS ORDERED: DEXTROSE 50%-WATER - 25 GM/50 ML VIAL IVPUSH ONE ×4 (06:06→15:20)
[2020-03-16] MEDS ORDERED: DEXTROSE 50%-WATER 25 GM/50 ML DISP.SYRIN ONE ×4 (06:12→15:21)
[2020-03-16 06:54] LABS: ALLENS TEST POSITIVE; ARTERIAL BLD GAS O2 SATURATION 91.3 mmHg (95-98); ARTERIAL BLOOD GAS PO2 69.2 mmHg (80-100); ARTERIAL BLOOD GAS pH 7.249 (7.350-7.450)
[2020-03-16 06:55] LABS: VENT MODE A/C; VENT RATE 14
[2020-03-16 07:16] LABS: BASO % 0.4 % (0-2.0); EOS % 0.1 % (0-4.5); HEMATOCRIT 26.1 % (32.4-45.2); HEMOGLOBIN 8.7 GM/dL (10.7-15.3); LYMPH % 6.2 % (8-40); MCH 33.4 pg (25.7-33.7); MCHC 33.5 g/dl (32.0-36.0); MEAN CELL VOLUME 99.8 fl (80-96); MEAN PLT VOLUME 12.3 fl (7.5-11.1); NEUT % 92.3 % (42.8-82.8); PLATELET COUNT 139 K/MM3 (134-434); RBC 2.61 M/mm3 (3.60-5.2); WHITE BLOOD COUNT 6.3 K/mm3 (4.0-10.0)
[2020-03-16 07:45] LABS: BILIRUBIN,TOTAL 0.6 mg/dL (0.2-1); BLOOD UREA NITROGEN 68.4 mg/dL (7-18); CALCIUM 7.8 mg/dL (8.5-10.1); CREATININE 1.8 mg/dL (0.55-1.3); PHOSPHOROUS 2.3 mg/dL (2.5-4.9); POTASSIUM 3.7 mmol/L (3.5-5.1); TOT PROT 4.7 g/dl (6.4-8.2)
[2020-03-16] MEDS: ACETYLCYSTEINE 20% 200MG/ML 4 ML VIAL *FOR ORAL / INH USE ONLY NEB SCH ×3 (08:30→16:15)
[2020-03-16] MEDS: ALBUTEROL SO4 0.083% IH SOL 2.5 MG/3 ML VIAL.NEB. NEB PRN ×3 (08:30→16:15)
[2020-03-16] MEDS ORDERED: PT OWN MED DRAWER 7, Y5N ONE ×3 (08:55→14:04)
[2020-03-16] MEDS ORDERED: VASOPRESSIN 20 UNITS/ML VIAL IV ONE (08:56)
[2020-03-16 09:15] LABS: ANISOCYTOSIS 1+; MACROCYTOSIS 1+; PLATELET ESTIMATE DECREASED
--- NOTE | 2020-03-16 09:26 | PN ---
Progress Note, Physician History of Present Illness: Pt seen/ examined in icu remains vent dependent/ pressor support. Unresponsive all f/u noted d/w RN also as well as icu attending/ - Current Medication List Current Medications: Active Medications Acetylcysteine (Mucomyst 20 Oral / Inh Use Only*) 200 mg NEB RQID JOSE Last Admin: 03/16/20 08:30 Dose: 200 mg Documented by: Albuterol Sulfate (Ventolin 0.083% Nebulizer Soln -) 1 amp NEB RQID PRN PRN Reason: ASTHMA Last Admin: 03/16/20 08:30 Dose: 1 amp Documented by: Banana Based Medical Food (Banatrol Plus Powder Packet) 1 packet GT TID JOSE Last Admin: 03/16/20 05:46 Dose: 1 packet Documented by: Chlorhexidine Gluconate (Hibiclens For Decolonization -) 1 applic TP HS JOSE Last Admin: 03/15/20 22:42 Dose: 1 applic Documented by: Heparin Sodium (Porcine) (Heparin -) 5,000 unit SQ TID JOSE Last Admin: 03/16/20 05:46 Dose: 5,000 unit Documented by: Vasopressin 40 units/ Sodium (Chloride) 100 mls @ 5 mls/hr IVPB ASDIR JOSE; Protocol Last Admin: 03/16/20 09:03 Dose: 6 units/hr, 15 mls/hr Documented by: Sodium Chloride (Normal Saline -) 1,000 mls @ 42 mls/hr IV ASDIR JOSE Last Admin: 03/16/20 05:46 Dose: 42 mls/hr Documented by: Sodium Chloride (Normal Saline -) 250 mls @ 3,000 mls/hr IV PRN PRN PRN Reason: Hypotension during Dialysis Stop: 03/15/20 10:43 Tigecycline 50 mg/ Dextrose 100 mls @ 100 mls/hr IVPB BID JOSE; Protocol Last Admin: 03/15/20 22:44 Dose: 100 mls/hr Documented by: Fentanyl (Sublimaze Ivpb) 500 mcg in 100 mls @ 5 mls/hr IVPB TITR JOSE; Protocol Last Admin: 03/16/20 00:56 Dose: 25 mcg/hr, 5 mls/hr Documented by: Insulin Aspart (Novolog Vial Sliding Scale -) 1 vial SQ Q6H JOSE; Protocol Last Admin: 03/16/20 06:03 Dose: Not Given Documented by: Insulin Detemir (Levemir Vial) 10 units SQ HS [facility] Last Admin: 03/15/20 22:43 Dose: 10 units Documented by: Midodrine (Proamatine -) 5 mg PO TID-MID [facility] Last Admin: 03/15/20 18:29 Dose: 5 mg Documented by: Mupirocin (Bactroban Ointment (For Decolonization) -) 1 applic NS BID [facility] Stop: 03/18/20 23:14 Last Admin: 03/15/20 22:40 Dose: 1 applic Documented by: Pantoprazole Sodium (Protonix Iv) 40 mg IVPUSH DAILY [facility] Last Admin: 03/15/20 09:18 Dose: 40 mg Documented by: - Objective Vital Signs: Vital Signs Temperature 99 F 03/16/20 06:00 Pulse Rate 100 H 03/16/20 09:03 Respiratory Rate 20 03/16/20 08:47 Blood Pressure 108/54 L 03/16/20 09:03 O2 Sat by Pulse Oximetry (%) 91 L 03/16/20 00:00 Neck: Yes: Other (s/p trach) Cardiovascular: Yes: Regular Rate and Rhythm Respiratory: Yes: Diminished Gastrointestinal: Yes: Soft, Other (g tube) Edema: LLE: 2+, RLE: 2+ Neurological: Yes: Other (unresponsive) Labs: CBC, BMP 03/16/20 05:00 03/16/20 05:00 INR, PTT INR 1.44 (0.83-1.09) H 03/14/20 05:25 - ....Imaging Chest X-ray: Report Reviewed Problem List - Problems (1) Hyperglycemia Code(s): R73.9 - HYPERGLYCEMIA, UNSPECIFIED (2) Sepsis Code(s): A41.9 - SEPSIS, UNSPECIFIED ORGANISM Qualifiers: Sepsis type: sepsis due to unspecified organism Sepsis acute organ dysfunction status: unspecified Qualified Code(s): A41.9 - Sepsis, unspecified organism (3) ESRD on dialysis Code(s): N18.6 - END STAGE RENAL DISEASE; Z99.2 - DEPENDENCE ON RENAL DIALYSIS (4) Lactic acidosis Code(s): E87.2 - ACIDOSIS (5) Pneumonia, aspiration Code(s): J69.0 - PNEUMONITIS DUE TO INHALATION OF FOOD AND VOMIT (6) Stroke Code(s): I63.9 - CEREBRAL INFARCTION, UNSPECIFIED Assessment/Plan Sepsis CVA- Extensive Pneumonia ESRD HYpotension Respiratory failure- Vent dependent Diabetes Continue present care Prognosis poor Will follow cc time approx 30 min
[2020-03-16] MEDS: MIDODRINE HCL 5 MG TABLET PO SCH ×3 (09:33→17:52)
[2020-03-16] MEDS: MUPIROCIN 2% TOPICAL OINTMENT FOR DECOLONIZATION NS SCH (09:34)
[2020-03-16] MEDS: PANTOPRAZOLE SODIUM 40 MG VIAL IVPUSH SCH (09:34)
[2020-03-16] MEDS ORDERED: SODIUM CHLORIDE 250 ML IV PRN (09:52)
--- NOTE | 2020-03-16 10:01 | PN ---
Teaching Attending Note Name of Resident: Rupinder Choi ATTENDING PHYSICIAN STATEMENT I saw and evaluated the patient. I reviewed the resident's note and discussed the case with the resident. I agree with the resident's findings and plan as documented. SUBJECTIVE: SUBJECTIVE: Patient seen and examined in the ICU. Remains on Vasopressin for hemodynamic support. Poorly responsive on AC Mode of vent. CXR: Increasing right infiltrate Intake & Output 03/13/20 03/14/20 03/15/20 03/16/20 23:59 23:59 23:59 23:59 Intake Total 576 4403 6878.0 1258 Output Total 30132 3300 0 Balance 576 -5957 3578.0 1258 Weight 92 lb 93 lb 7.616 oz 94 lb 3.2 oz Last Vital Signs Temp Pulse Resp BP Pulse Ox 99 F 102 H 20 78/42 L 91 L 03/16/20 06:00 03/16/20 09:28 03/16/20 08:47 03/16/20 09:51 03/16/20 00:00 Active Medications Acetylcysteine (Mucomyst 20 Oral / Inh Use Only*) 200 mg NEB RQID JOSE Last Admin: 03/16/20 08:30 Dose: 200 mg Documented by: Albuterol Sulfate (Ventolin 0.083% Nebulizer Soln -) 1 amp NEB RQID PRN PRN Reason: ASTHMA Last Admin: 03/16/20 08:30 Dose: 1 amp Documented by: Banana Based Medical Food (Banatrol Plus Powder Packet) 1 packet GT TID JOSE Last Admin: 03/16/20 05:46 Dose: 1 packet Documented by: Chlorhexidine Gluconate (Hibiclens For Decolonization -) 1 applic TP HS JOSE Last Admin: 03/15/20 22:42 Dose: 1 applic Documented by: Heparin Sodium (Porcine) (Heparin -) 5,000 unit SQ TID JOSE Last Admin: 03/16/20 05:46 Dose: 5,000 unit Documented by: Vasopressin 40 units/ Sodium (Chloride) 100 mls @ 5 mls/hr IVPB ASDIR JOSE; Protocol Last Titration: 03/16/20 09:51 Dose: 6 units/hr, 15 mls/hr Documented by: Sodium Chloride (Normal Saline -) 1,000 mls @ 42 mls/hr IV ASDIR JOSE Last Admin: 03/16/20 05:46 Dose: 42 mls/hr Documented by: Sodium Chloride (Normal Saline -) 250 mls @ 3,000 mls/hr IV PRN PRN PRN Reason: Hypotension during Dialysis Stop: 03/15/20 10:43 Tigecycline 50 mg/ Dextrose 100 mls @ 100 mls/hr IVPB BID [facility]; Protocol Last Admin: 03/15/20 22:44 Dose: 100 mls/hr Documented by: Fentanyl (Sublimaze Ivpb) 500 mcg in 100 mls @ 5 mls/hr IVPB TITR [facility]; Protocol Last Admin: 03/16/20 00:56 Dose: 25 mcg/hr, 5 mls/hr Documented by: Sodium Chloride (Normal Saline -) 250 mls @ 3,000 mls/hr IV PRN PRN PRN Reason: Hypotension during Dialysis Stop: 03/17/20 09:52 Insulin Aspart (Novolog Vial Sliding Scale -) 1 vial SQ Q6H [facility]; Protocol Last Admin: 03/16/20 06:03 Dose: Not Given Documented by: Insulin Detemir (Levemir Vial) 10 units SQ HS [facility] Last Admin: 03/15/20 22:43 Dose: 10 units Documented by: Midodrine (Proamatine -) 5 mg PO TID-MID [facility] Last Admin: 03/16/20 09:33 Dose: 5 mg Documented by: Mupirocin (Bactroban Ointment (For Decolonization) -) 1 applic NS BID [facility] Stop: 03/18/20 23:14 Last Admin: 03/16/20 09:34 Dose: 1 applic Documented by: Pantoprazole Sodium (Protonix Iv) 40 mg IVPUSH DAILY [facility] Last Admin: 03/16/20 09:34 Dose: 40 mg Documented by: GENERAL: Poorly responsive on AC Mode of vent HEENT: (-) Pallor NECK: trach in place LUNGS: Vented, coarse breath sounds Right > Left HEART: Regular rate and rhythm, S1, S2 without murmur, rub or gallop. ABDOMEN: Soft, nontender, nondistended, normoactive bowel sounds, no guarding EXTREMITIES: 2+ pulses, warm, well-perfused, 2+ pitting edema b/l UE Laboratory Results - last 24 hr 09/08/20 09/11/20 09/12/20 09:10 18:30 00:10 WBC RBC Hgb Hct MCV MCH MCHC RDW Plt Count MPV Absolute Neuts (auto) Neutrophils % Neutrophils % (Manual) Band Neutrophils % Lymphocytes % Lymphocytes % (Manual) Monocytes % Monocytes % (Manual) Eosinophils % Eosinophils % (Manual) Basophils % Basophils % (Manual) Myelocytes % (Man) Promyelocytes % (Man) Blast Cells % (Manual) Nucleated RBC % Metamyelocytes Hypochromia Platelet Estimate Polychromasia Poikilocytosis Anisocytosis Macrocytosis Anticoagulation Therapy Puncture Site Patient Temperature ABG pH ABG pCO2 ABG pO2 ABG HCO3 ABG O2 Sat (Measured) ABG O2 Content ABG Base Excess Sai Test Patient On Oxygen O2 Delivery Device Oxygen Flow Rate Vent Mode Vent Rate Mechanical Rate PEEP Pressure Support Vent Sodium Potassium Chloride Carbon Dioxide Anion Gap BUN Creatinine Est GFR (CKD-EPI)AfAm Est GFR (CKD-EPI)NonAf POC Glucometer 88 195 Random Glucose Calcium Phosphorus Magnesium Total Bilirubin AST ALT Alkaline Phosphatase Total Protein Albumin Blood Type O POSITIVE Antibody Screen Negative Crossmatch See Detail 03/16/20 03/16/20 03/16/20 05:00 05:00 06:02 WBC 6.3 RBC 2.61 L Hgb 8.7 L Hct 26.1 L MCV 99.8 H MCH 33.4 MCHC 33.5 RDW 19.0 H Plt Count 139 MPV 12.3 H Absolute Neuts (auto) 5.8 Neutrophils % 92.3 H Neutrophils % (Manual) 57.0 Band Neutrophils % 27.0 Lymphocytes % 6.2 L Lymphocytes % (Manual) 4.0 L Monocytes % 1.0 L Monocytes % (Manual) 1 L D Eosinophils % 0.1 D Eosinophils % (Manual) 0.0 D Basophils % 0.4 Basophils % (Manual) 0.0 Myelocytes % (Man) 3 H D Promyelocytes % (Man) 0 Blast Cells % (Manual) 0 Nucleated RBC % 5 H Metamyelocytes 8 H D Hypochromia 0 Platelet Estimate Decreased Polychromasia 1+ Poikilocytosis 0 Anisocytosis 1+ Macrocytosis 1+ Anticoagulation Therapy Puncture Site Patient Temperature ABG pH ABG pCO2 ABG pO2 ABG HCO3 ABG O2 Sat (Measured) ABG O2 Content ABG Base Excess Sai Test Patient On Oxygen O2 Delivery Device Oxygen Flow Rate Vent Mode Vent Rate Mechanical Rate PEEP Pressure Support Vent Sodium 142 Potassium 3.7 Chloride 107 Carbon Dioxide 17 L Anion Gap 17 H BUN 68.4 H Creatinine 1.8 H Est GFR (CKD-EPI)AfAm 31.14 Est GFR (CKD-EPI)NonAf 26.87 POC Glucometer 57 Random Glucose 68 L Calcium 7.8 L Phosphorus 2.3 L Magnesium 2.0 Total Bilirubin 0.6 AST 39 H ALT 45 Alkaline Phosphatase 423 H Total Protein 4.7 L Albumin 1.0 L Blood Type Antibody Screen Crossmatch 03/16/20 06:30 WBC RBC Hgb Hct MCV MCH MCHC RDW Plt Count MPV Absolute Neuts (auto) Neutrophils % Neutrophils % (Manual) Band Neutrophils % Lymphocytes % Lymphocytes % (Manual) Monocytes % Monocytes % (Manual) Eosinophils % Eosinophils % (Manual) Basophils % Basophils % (Manual) Myelocytes % (Man) Promyelocytes % (Man) Blast Cells % (Manual) Nucleated RBC % Metamyelocytes Hypochromia Platelet Estimate Polychromasia Poikilocytosis Anisocytosis Macrocytosis Anticoagulation Therapy No Result Required. Puncture Site Left radial Patient Temperature No Result Required. ABG pH 7.249 L ABG pCO2 33.10 L ABG pO2 69.2 L ABG HCO3 14.2 L ABG O2 Sat (Measured) 91.3 L ABG O2 Content No Result Required. ABG Base Excess -12.0 L Sai Test Positive Patient On Oxygen Yes O2 Delivery Device Vent Oxygen Flow Rate 60% Vent Mode A/c Vent Rate 14 Mechanical Rate Yes PEEP 5.0 Pressure Support Vent 450 Sodium Potassium Chloride Carbon Dioxide Anion Gap BUN Creatinine Est GFR (CKD-EPI)AfAm Est GFR (CKD-EPI)NonAf POC Glucometer Random Glucose Calcium Phosphorus Magnesium Total Bilirubin AST ALT Alkaline Phosphatase Total Protein Albumin Blood Type Antibody Screen Crossmatch ASSESSMENT/PLAN: Septic Shock ESRD on HD MCA stroke 01/14/20 PNA ABX per ID Will need to change TLC Pressors to maintain MAP > 65 IVF resuscitation Minimize Volume removal with HD Midodrine AC Mode of vent Requires ICU monitoring for pressors Grave overall prognosis for meaningful survival. Unfortunately her family is not realistic about her overall outcome. Dr Alonzo Critical care time spent in reviewing chart, evaluating patient and formulating plan - 36 minutes.
[2020-03-16] MEDS ORDERED: CASPOFUNGIN ACETATE 70 MG in SODIUM CHLORIDE 250 ML IVPB ONE (10:59)
--- NOTE | 2020-03-16 10:59 | PN ---
Progress Note, Physician History of Present Illness: UNRESPONSIVE ON VENTILATOR HYPOTENSIVE ON [id number] LAB REPORTS + BC GNR, YEAST CANNOT RECEIVE HD TODAY AFEBRILE WBC WNL - Current Medication List Current Medications: Active Medications Acetylcysteine (Mucomyst 20 Oral / Inh Use Only*) 200 mg NEB RQID JOSE Last Admin: 03/16/20 08:30 Dose: 200 mg Documented by: Albuterol Sulfate (Ventolin 0.083% Nebulizer Soln -) 1 amp NEB RQID PRN PRN Reason: ASTHMA Last Admin: 03/16/20 08:30 Dose: 1 amp Documented by: Banana Based Medical Food (Banatrol Plus Powder Packet) 1 packet GT TID [facility] Last Admin: 03/16/20 05:46 Dose: 1 packet Documented by: Chlorhexidine Gluconate (Hibiclens For Decolonization -) 1 applic TP HS [facility] Last Admin: 03/15/20 22:42 Dose: 1 applic Documented by: Heparin Sodium (Porcine) (Heparin -) 5,000 unit SQ TID [facility] Last Admin: 03/16/20 05:46 Dose: 5,000 unit Documented by: Vasopressin 40 units/ Sodium (Chloride) 100 mls @ 5 mls/hr IVPB ASDIR [facility]; Protocol Last Titration: 03/16/20 09:51 Dose: 6 units/hr, 15 mls/hr Documented by: Sodium Chloride (Normal Saline -) 1,000 mls @ 42 mls/hr IV ASDIR [facility] Last Admin: 03/16/20 05:46 Dose: 42 mls/hr Documented by: Sodium Chloride (Normal Saline -) 250 mls @ 3,000 mls/hr IV PRN PRN PRN Reason: Hypotension during Dialysis Stop: 03/15/20 10:43 Tigecycline 50 mg/ Dextrose 100 mls @ 100 mls/hr IVPB BID [facility]; Protocol Last Admin: 03/15/20 22:44 Dose: 100 mls/hr Documented by: Fentanyl (Sublimaze Ivpb) 500 mcg in 100 mls @ 5 mls/hr IVPB TITR [facility]; Protocol Last Admin: 03/16/20 00:56 Dose: 25 mcg/hr, 5 mls/hr Documented by: Sodium Chloride (Normal Saline -) 250 mls @ 3,000 mls/hr IV PRN PRN PRN Reason: Hypotension during Dialysis Stop: 03/17/20 09:52 Insulin Aspart (Novolog Vial Sliding Scale -) 1 vial SQ Q6H [facility]; Protocol Last Admin: 03/16/20 06:03 Dose: Not Given Documented by: Insulin Detemir (Levemir Vial) 10 units SQ HS [facility] Last Admin: 03/15/20 22:43 Dose: 10 units Documented by: Midodrine (Proamatine -) 5 mg PO TID-MID [facility] Last Admin: 03/16/20 09:33 Dose: 5 mg Documented by: Mupirocin (Bactroban Ointment (For Decolonization) -) 1 applic NS BID [facility] Stop: 03/18/20 23:14 Last Admin: 03/16/20 09:34 Dose: 1 applic Documented by: Pantoprazole Sodium (Protonix Iv) 40 mg IVPUSH DAILY [facility] Last Admin: 03/16/20 09:34 Dose: 40 mg Documented by: - Objective Vital Signs: Vital Signs Temperature 99 F 03/16/20 06:00 Pulse Rate 102 H 03/16/20 09:28 Respiratory Rate 03/16/20 08:47 Blood Pressure 78/42 L 03/16/20 09:51 O2 Sat by Pulse Oximetry (%) 91 L 03/16/20 00:00 Constitutional: Yes: No Distress Eyes: Yes: Conjunctiva Clear Cardiovascular: Yes: Regular Rate and Rhythm, S1, S2 Respiratory: Yes: Mechanically Ventilated Gastrointestinal: Yes: Normal Bowel Sounds, Soft. No: Tenderness Edema: Yes Labs: CBC, BMP 03/16/20 05:00 03/16/20 05:00 INR, PTT INR 1.44 (0.83-1.09) H 03/14/20 05:25 Assessment/Plan GRAM NEGATIVE SEPSIS/ FUNGEMIA RESP FAILURE PNEUMONIA RENAL FAILURE AWAIT BC WILL OBTAIN RANDOM GENTA LEVEL START CANCIDAS PROGNOSIS POOR
[2020-03-16] MEDS ORDERED: NOREPINEPHRINE BITARTRATE 16,000 MCG in SODIUM CHLORIDE 484 ML IV SCH (12:30)
--- NOTE | 2020-03-16 12:30 | PROC ---
Central Line Insertion Indication: Vasopressor Risks and Benefits Explained: Yes Consent on Chart: Yes Central Line: Triple Lumen Catheter Anesthesia: 1% Lidocaine Sterile Technique: Yes Ultrasound Guided Assistance: Yes Position: Right Femoral Post Insertion: Yes: Other Sterile Dressing Applied: Yes
[2020-03-16] MEDS ORDERED: NOREPINEPHRINE D5W PREMIX 16,000 MCG/500 ML BAG IVPB ONE (12:48)
[2020-03-16] MEDS ORDERED: FENTANYL NS IVPB 500 MCG/100 ML BAG IVPB ONE (12:48)
[2020-03-16] MEDS ORDERED: DEXTROSE 5%-0.45% SALINE 1,000 ML IV SCH (14:00)
[2020-03-16] MEDS ORDERED: DEXTROSE 5%-WATER - 1,000 ML IV SCH (14:00)
--- NOTE | 2020-03-16 14:58 | PN ---
Physical Exam: SUBJECTIVE: Patient seen and examined bedside this morning, still on vasopresin. Lots of yellow diarrhea in rectal tube. Pt's MAP remains between 49-53. No events overnight. Unable to receive HD today. OBJECTIVE: Vital Signs 03/16/20 08:00 Pulse Rate 102 H Respiratory 20 Rate Blood Pressure 113/66 03/16/20 03/16/20 09:03 09:28 Pulse Rate 100 H 102 H Respiratory Rate Blood Pressure 108/54 L 113/66 GENERAL: Sedated and intubated HEAD: Normal with no signs of trauma. EYES: non reactive NECK: Trach in place LUNGS: Decreased breath sounds on right with crackles. BL venti breath sounds in upper lungs. HEART: RRR ABDOMEN: Peg tub in place, non distended EXTREMITIES: Warm, edema in BL hands and legs NEUROLOGICAL: does not track with eyes, not responsive to painful stimuli, no signs of high brain function observed Intake & Output 03/13/20 03/14/20 03/15/20 03/16/20 23:59 23:59 23:59 23:59 Intake Total 576 4403 6878.0 1258 Output Total 80231 3300 0 Balance 576 -5957 3578.0 1258 Weight 92 lb 93 lb 7.616 oz 94 lb 3.2 oz Laboratory Results - last 24 hr 03/15/20 03/16/20 03/16/20 18:30 00:10 05:00 WBC 6.3 RBC 2.61 L Hgb 8.7 L Hct 26.1 L MCV 99.8 H MCH 33.4 MCHC 33.5 RDW 19.0 H Plt Count 139 MPV 12.3 H Absolute Neuts (auto) 5.8 Neutrophils % 92.3 H Neutrophils % (Manual) 57.0 Band Neutrophils % 27.0 Lymphocytes % 6.2 L Lymphocytes % (Manual) 4.0 L Monocytes % 1.0 L Monocytes % (Manual) 1 L D Eosinophils % 0.1 D Eosinophils % (Manual) 0.0 D Basophils % 0.4 Basophils % (Manual) 0.0 Myelocytes % (Man) 3 H D Promyelocytes % (Man) 0 Blast Cells % (Manual) 0 Nucleated RBC % 5 H Metamyelocytes 8 H D Hypochromia 0 Platelet Estimate Decreased Polychromasia 1+ Poikilocytosis 0 Anisocytosis 1+ Macrocytosis 1+ Anticoagulation Therapy Puncture Site Patient Temperature ABG pH ABG pCO2 ABG pO2 ABG HCO3 ABG O2 Sat (Measured) ABG O2 Content ABG Base Excess Sai Test Patient On Oxygen O2 Delivery Device Oxygen Flow Rate Vent Mode Vent Rate Mechanical Rate PEEP Pressure Support Vent Sodium Potassium Chloride Carbon Dioxide Anion Gap BUN Creatinine Est GFR (CKD-EPI)AfAm Est GFR (CKD-EPI)NonAf POC Glucometer 88 195 Random Glucose Lactic Acid Calcium Phosphorus Magnesium Total Bilirubin AST ALT Alkaline Phosphatase Total Protein Albumin 03/16/20 03/16/20 03/16/20 05:00 06:02 06:30 WBC RBC Hgb Hct MCV MCH MCHC RDW Plt Count MPV Absolute Neuts (auto) Neutrophils % Neutrophils % (Manual) Band Neutrophils % Lymphocytes % Lymphocytes % (Manual) Monocytes % Monocytes % (Manual) Eosinophils % Eosinophils % (Manual) Basophils % Basophils % (Manual) Myelocytes % (Man) Promyelocytes % (Man) Blast Cells % (Manual) Nucleated RBC % Metamyelocytes Hypochromia Platelet Estimate Polychromasia Poikilocytosis Anisocytosis Macrocytosis Anticoagulation Therapy No Result Required. Puncture Site Left radial Patient Temperature No Result Required. ABG pH 7.249 L ABG pCO2 33.10 L ABG pO2 69.2 L ABG HCO3 14.2 L ABG O2 Sat (Measured) 91.3 L ABG O2 Content No Result Required. ABG Base Excess -12.0 L Sai Test Positive Patient On Oxygen Yes O2 Delivery Device Vent Oxygen Flow Rate 60% Vent Mode A/c Vent Rate 14 Mechanical Rate Yes PEEP 5.0 Pressure Support Vent 450 Sodium 142 Potassium 3.7 Chloride 107 Carbon Dioxide 17 L Anion Gap 17 H BUN 68.4 H Creatinine 1.8 H Est GFR (CKD-EPI)AfAm 31.14 Est GFR (CKD-EPI)NonAf 26.87 POC Glucometer 57 Random Glucose 68 L Lactic Acid Calcium 7.8 L Phosphorus 2.3 L Magnesium 2.0 Total Bilirubin 0.6 AST 39 H ALT 45 Alkaline Phosphatase 423 H Total Protein 4.7 L Albumin 1.0 L 03/16/20 03/16/20 03/16/20 12:00 12:21 12:24 WBC RBC Hgb Hct MCV MCH MCHC RDW Plt Count MPV Absolute Neuts (auto) Neutrophils % Neutrophils % (Manual) Band Neutrophils % Lymphocytes % Lymphocytes % (Manual) Monocytes % Monocytes % (Manual) Eosinophils % Eosinophils % (Manual) Basophils % Basophils % (Manual) Myelocytes % (Man) Promyelocytes % (Man) Blast Cells % (Manual) Nucleated RBC % Metamyelocytes Hypochromia Platelet Estimate Polychromasia Poikilocytosis Anisocytosis Macrocytosis Anticoagulation Therapy Puncture Site Patient Temperature ABG pH ABG pCO2 ABG pO2 ABG HCO3 ABG O2 Sat (Measured) ABG O2 Content ABG Base Excess Sai Test Patient On Oxygen O2 Delivery Device Oxygen Flow Rate Vent Mode Vent Rate Mechanical Rate PEEP Pressure Support Vent Sodium Potassium Chloride Carbon Dioxide Anion Gap BUN Creatinine Est GFR (CKD-EPI)AfAm Est GFR (CKD-EPI)NonAf POC Glucometer < 10 < 10 Random Glucose Lactic Acid 6.0 H* Calcium Phosphorus Magnesium Total Bilirubin AST ALT Alkaline Phosphatase Total Protein Albumin 03/16/20 03/16/20 13:27 14:27 WBC RBC Hgb Hct MCV MCH MCHC RDW Plt Count MPV Absolute Neuts (auto) Neutrophils % Neutrophils % (Manual) Band Neutrophils % Lymphocytes % Lymphocytes % (Manual) Monocytes % Monocytes % (Manual) Eosinophils % Eosinophils % (Manual) Basophils % Basophils % (Manual) Myelocytes % (Man) Promyelocytes % (Man) Blast Cells % (Manual) Nucleated RBC % Metamyelocytes Hypochromia Platelet Estimate Polychromasia Poikilocytosis Anisocytosis Macrocytosis Anticoagulation Therapy Puncture Site Patient Temperature ABG pH ABG pCO2 ABG pO2 ABG HCO3 ABG O2 Sat (Measured) ABG O2 Content ABG Base Excess Sai Test Patient On Oxygen O2 Delivery Device Oxygen Flow Rate Vent Mode Vent Rate Mechanical Rate PEEP Pressure Support Vent Sodium Potassium Chloride Carbon Dioxide Anion Gap BUN Creatinine Est GFR (CKD-EPI)AfAm Est GFR (CKD-EPI)NonAf POC Glucometer 50 111 Random Glucose Lactic Acid Calcium Phosphorus Magnesium Total Bilirubin AST ALT Alkaline Phosphatase Total Protein Albumin Active Medications Generic Name Dose Route Start Last Admin Trade Name Freq PRN Reason Stop Dose Admin Acetylcysteine 200 mg 03/09/20 08:00 03/16/20 08:30 Mucomyst 20 Oral / Inh Use Only* NEB 200 mg RQID JOSE Administration Albuterol Sulfate 1 amp 03/14/20 07:40 03/16/20 08:30 Ventolin 0.083% Nebulizer Soln - NEB 1 amp RQID PRN Administration ASTHMA Banana Based Medical Food 1 packet 03/13/20 22:00 03/16/20 14:15 Banatrol Plus Powder Packet GT 1 packet TID JOSE Administration Chlorhexidine Gluconate 1 applic 03/14/20 22:00 03/15/20 22:42 Hibiclens For Decolonization - TP 1 applic HS JOSE Administration Heparin Sodium (Porcine) 5,000 unit 03/15/20 14:00 03/16/20 14:15 Heparin - SQ 5,000 unit TID JOSE Administration Vasopressin 40 units/ Sodium 100 mls @ 5 mls/hr 03/14/20 00:15 03/16/20 13:59 Chloride IVPB 0 units/hr ASDIR JOSE 0 mls/hr Titration Protocol 2 UNITS/HR Sodium Chloride 250 mls @ 3,000 mls/hr 03/14/20 10:43 Normal Saline - IV 03/15/20 10:43 PRN PRN Hypotension during Dialysis Tigecycline 50 mg/ Dextrose 100 mls @ 100 mls/hr 03/15/20 10:00 03/15/20 22:44 IVPB 100 mls/hr BID JOSE Administration Protocol Fentanyl 500 mcg in 100 mls @ 5 mls/hr 03/16/20 00:26 03/16/20 13:59 Sublimaze Ivpb IVPB 25 mcg/hr TITR JOSE 5 mls/hr Administration Protocol 25 MCG/HR Sodium Chloride 250 mls @ 3,000 mls/hr 03/16/20 09:52 Normal Saline - IV 03/17/20 09:52 PRN PRN Hypotension during Dialysis Caspofungin 50 mg/ Sodium 250 mls @ 250 mls/hr 03/17/20 11:00 Chloride IVPB Q24H JOSE Norepinephrine Bitartrate 16, 500 mls @ 9.375 mls/hr 03/16/20 12:30 03/16/20 14:47 000 mcg/ Sodium Chloride IV 9 mcg/min TITR JOSE 16.875 mls/hr Titration Protocol 5 MCG/MIN Dextrose/Sodium Chloride 1,000 mls @ 42 mls/hr 03/16/20 14:00 03/16/20 14:02 D5-1/2ns - IV 42 mls/hr ASDIR JOSE Administration Insulin Aspart 1 vial 03/09/20 06:00 03/16/20 14:23 Novolog Vial Sliding Scale - SQ Not Given Q6H JOSE Protocol Midodrine 5 mg 03/15/20 14:00 03/16/20 14:15 Proamatine - PO 5 mg TID-MID JOSE Administration Mupirocin 1 applic 03/13/20 23:15 03/16/20 09:34 Bactroban Ointment (For Decolonization) - NS 03/18/20 23:14 1 applic BID JOSE Administration Pantoprazole Sodium 40 mg 03/14/20 10:00 03/16/20 09:34 Protonix Iv IVPUSH 40 mg DAILY JOSE Administration CXR: Since 03/14/2020 there are progressive bilateral infiltrates with some atelectasis and fluid at the left base. The tracheostomy tube and right jugular line persists. The tip of the right jugular line is in the right atrium. There is a scoliosis with convexity to the right. Impression: Worse. Progressive pulmonary and pleural findings. ASSESSMENT/PLAN: 74 YO F PMH of ESRD on HD, MCA stroke 01/14/20 (trach on vent) presents from [facility] for PEG tube dislodgement. Found to be febrile, hypotensive, and tachycardic. Admitted previously to the ICU for sepsis 2/2 PNA. Now admitted to the ICU for hypotension on vasopressin drip. Neuro - sedated on fentanyl - H/o MCA stroke. - nonverbal, non responsive Pulm - s/p Tracheostomy on vent - Keep saturation > 90% - CXR shows worsening infiltrate in R lung Cardio - Hypotension - Maintain BP >65. - gave 500 cc bolus LR this AM - On vasopressin, MAP < 60 today, started Levophed ID: sepsis 2/2 PNA - leukocytosis resolved, afebrile - lactic acidosis: 3 >> 4.4 >> 6 - blood culture show yeast like organism & lactose fermenting gram neg bacilii - sputum culture: enterobacter aerogenes, pseudomonas, proteus mirabilis, & yeast like organism - MDRO enterobacter- strict contact isolation precautions - ID consulted capsofungin started today Tigecycline day 2 dose Gent after HD tx Renal - ESRD on HD, anuric - Pt unable to recieve dialysis today - possibly HD tomorrow GI: - peg tube was replaced in ICU on 03/08/20 - patient have diarrhea today Endocrine - BGM - ISS Q6H - Levemir 10 units SQ HS: d/c for now because Pt glucose keeps dropping < 50 - needed dextrose 25mg pushes x2 FEN - dextrose 5% in NS 42cc/hr - monitor lytes - tube feed vital 1.2 running Lines - Peg tube - R perma cath - L fem line removed today due to concern for possible source of infection - R fem line placed 03/16 PPx - DVT: scds - GI: 40 IV protonix daily Dispo: poor prognosis spoke to daughter today regarding placement of central line and seriousness of her mother's condition. Daughter wants everything done ethics consulted Visit type - Emergency Visit Emergency Visit: Yes ED Registration Date: 03/07/20 Care time: The patient presented to the Emergency Department on the above date and was hospitalized for further evaluation of their emergent condition. - New Patient This patient is new to me today: No - Critical Care Critical Care patient: Yes Total Critical Care Time (in minutes): 40 Critical Care Statement: The care of this patient involved high complexity decision making to prevent further life threatening deterioration of the patient's condition and/or to evaluate & treat vital organ system(s) failure or risk of failure. - Discharge Referral Referred to [facility] Med P.C.: No - Medication Review Med list reviewed for High Risk Meds patients 65 and older: Yes ATTENDING PHYSICIAN STATEMENT I saw and evaluated the patient. I reviewed the resident's note and discussed the case with the resident. I agree with the resident's findings and plan as documented. SUBJECTIVE: OBJECTIVE: ASSESSMENT AND PLAN:
[2020-03-16] MEDS: TIGECYCLINE 50 MG in DEXTROSE 5%-WATER - 100 ML IVPB SCH (15:12)
--- NOTE | 2020-03-16 15:37 | PN ---
Progress Note, Physician History of Present Illness: Pt seen and examined at bedside. She remains in ICU. She has been hypotensive. - Current Medication List Current Medications: Active Medications Acetylcysteine (Mucomyst 20 Oral / Inh Use Only*) 200 mg NEB RQID JOSE Last Admin: 03/16/20 08:30 Dose: 200 mg Documented by: Albuterol Sulfate (Ventolin 0.083% Nebulizer Soln -) 1 amp NEB RQID PRN PRN Reason: ASTHMA Last Admin: 03/16/20 08:30 Dose: 1 amp Documented by: Banana Based Medical Food (Banatrol Plus Powder Packet) 1 packet GT TID JOSE Last Admin: 03/16/20 14:15 Dose: 1 packet Documented by: Chlorhexidine Gluconate (Hibiclens For Decolonization -) 1 applic TP HS JOSE Last Admin: 03/15/20 22:42 Dose: 1 applic Documented by: Heparin Sodium (Porcine) (Heparin -) 5,000 unit SQ TID JOSE Last Admin: 03/16/20 14:15 Dose: 5,000 unit Documented by: Vasopressin 40 units/ Sodium (Chloride) 100 mls @ 5 mls/hr IVPB ASDIR JOSE; Protocol Last Titration: 03/16/20 13:59 Dose: 0 units/hr, 0 mls/hr Documented by: Sodium Chloride (Normal Saline -) 250 mls @ 3,000 mls/hr IV PRN PRN PRN Reason: Hypotension during Dialysis Stop: 03/15/20 10:43 Tigecycline 50 mg/ Dextrose 100 mls @ 100 mls/hr IVPB BID JOSE; Protocol Last Admin: 03/16/20 15:12 Dose: 100 mls/hr Documented by: Fentanyl (Sublimaze Ivpb) 500 mcg in 100 mls @ 5 mls/hr IVPB TITR JOSE; Protocol Last Admin: 03/16/20 13:59 Dose: 25 mcg/hr, 5 mls/hr Documented by: Sodium Chloride (Normal Saline -) 250 mls @ 3,000 mls/hr IV PRN PRN PRN Reason: Hypotension during Dialysis Stop: 03/17/20 09:52 Caspofungin 50 mg/ Sodium (Chloride) 250 mls @ 250 mls/hr IVPB Q24H JOSE Norepinephrine Bitartrate 16, (000 mcg/ Sodium Chloride) 500 mls @ 9.375 mls/hr IV TITR [facility]; Protocol Last Titration: 03/16/20 14:47 Dose: 9 mcg/min, 16.875 mls/hr Documented by: Dextrose/Sodium Chloride (D5-1/2ns -) 1,000 mls @ 42 mls/hr IV ASDIR [facility] Last Admin: 03/16/20 14:02 Dose: 42 mls/hr Documented by: Insulin Aspart (Novolog Vial Sliding Scale -) 1 vial SQ Q6H [facility]; Protocol Last Admin: 03/16/20 14:23 Dose: Not Given Documented by: Midodrine (Proamatine -) 5 mg PO TID-MID [facility] Last Admin: 03/16/20 14:15 Dose: 5 mg Documented by: Mupirocin (Bactroban Ointment (For Decolonization) -) 1 applic NS BID [facility] Stop: 03/18/20 23:14 Last Admin: 03/16/20 09:34 Dose: 1 applic Documented by: Pantoprazole Sodium (Protonix Iv) 40 mg IVPUSH DAILY [facility] Last Admin: 03/16/20 09:34 Dose: 40 mg Documented by: - Objective Vital Signs: Vital Signs Temperature 99 F 03/16/20 06:00 Pulse Rate 0 L 03/16/20 13:59 Respiratory Rate 20 03/16/20 08:47 Blood Pressure 82/50 L 03/16/20 14:47 O2 Sat by Pulse Oximetry (%) 91 L 03/16/20 00:00 Constitutional: Yes: Calm Eyes: Yes: Conjunctiva Clear Cardiovascular: Yes: S1, S2 Respiratory: Yes: Mechanically Ventilated, Poor Air Entry Gastrointestinal: Yes: Soft Musculoskeletal: Yes: Muscle Weakness Edema: No Neurological: Yes: Lethargy Labs: CBC, BMP 03/16/20 05:00 03/16/20 05:00 INR, PTT INR 1.44 (0.83-1.09) H 03/14/20 05:25 Problem List - Problems (1) Altered mental status Code(s): R41.82 - ALTERED MENTAL STATUS, UNSPECIFIED (2) ESRD on dialysis Code(s): N18.6 - END STAGE RENAL DISEASE; Z99.2 - DEPENDENCE ON RENAL DIALYSIS Assessment/Plan Current Medications Generic Name Dose Route Start Last Admin Trade Name Freq PRN Reason Stop Dose Admin Acetylcysteine 200 mg 03/09/20 08:00 03/16/20 08:30 Mucomyst 20 Oral / Inh Use Only* NEB 200 mg RQID JOSE Administration Albuterol Sulfate 1 amp 03/14/20 07:40 03/16/20 08:30 Ventolin 0.083% Nebulizer Soln - NEB 1 amp RQID PRN Administration ASTHMA Banana Based Medical Food 1 packet 03/13/20 22:00 03/16/20 14:15 Banatrol Plus Powder Packet GT 1 packet TID JOSE Administration Chlorhexidine Gluconate 1 applic 03/14/20 22:00 03/15/20 22:42 Hibiclens For Decolonization - TP 1 applic HS JOSE Administration Heparin Sodium (Porcine) 5,000 unit 03/15/20 14:00 03/16/20 14:15 Heparin - SQ 5,000 unit TID JOSE Administration Vasopressin 40 units/ Sodium 100 mls @ 5 mls/hr 03/14/20 00:15 03/16/20 13:59 Chloride IVPB 0 units/hr ASDIR JOSE 0 mls/hr Titration Protocol 2 UNITS/HR Sodium Chloride 250 mls @ 3,000 mls/hr 03/14/20 10:43 Normal Saline - IV 03/15/20 10:43 PRN PRN Hypotension during Dialysis Tigecycline 50 mg/ Dextrose 100 mls @ 100 mls/hr 03/15/20 10:00 03/16/20 15:12 IVPB 100 mls/hr BID JOSE Administration Protocol Fentanyl 500 mcg in 100 mls @ 5 mls/hr 03/16/20 00:26 03/16/20 13:59 Sublimaze Ivpb IVPB 25 mcg/hr TITR JOSE 5 mls/hr Administration Protocol 25 MCG/HR Sodium Chloride 250 mls @ 3,000 mls/hr 03/16/20 09:52 Normal Saline - IV 03/17/20 09:52 PRN PRN Hypotension during Dialysis Caspofungin 50 mg/ Sodium 250 mls @ 250 mls/hr 03/17/20 11:00 Chloride IVPB Q24H JOSE Norepinephrine Bitartrate 16, 500 mls @ 9.375 mls/hr 03/16/20 12:30 03/16/20 14:47 000 mcg/ Sodium Chloride IV 9 mcg/min TITR JOSE 16.875 mls/hr Titration Protocol 5 MCG/MIN Dextrose/Sodium Chloride 1,000 mls @ 42 mls/hr 03/16/20 14:00 03/16/20 14:02 D5-1/2ns - IV 42 mls/hr ASDIR JOSE Administration Insulin Aspart 1 vial 03/09/20 06:00 03/16/20 14:23 Novolog Vial Sliding Scale - SQ Not Given Q6H JOSE Protocol Midodrine 5 mg 03/15/20 14:00 03/16/20 14:15 Proamatine - PO 5 mg TID-MID JOSE Administration Mupirocin 1 applic 03/13/20 23:15 03/16/20 09:34 Bactroban Ointment (For Decolonization) - NS 03/18/20 23:14 1 applic BID JOSE Administration Pantoprazole Sodium 40 mg 03/14/20 10:00 03/16/20 09:34 Protonix Iv IVPUSH 40 mg DAILY JOSE Administration Impression 1. esrd 2. right temporoparietal infarct 3. CVA 4. hx aspiration pneumonia 5. htn 6. hld 7. chronic resp failure 8. sepsis 9. dislodged peg Plan - pt is too unstable for HD at the moment - ICU discussing access with family - pressors to map 65 if access placed - cont to monitor bp - prognosis grave - discussed with ICU team
[2020-03-16 18:25] VITALS: BP 93/71; PULSE 84; TEMP 97.6
[2020-03-16] MEDS ORDERED: ATROPINE SULFATE 1 MG/10 ML DISP.SYRIN ONE (19:01)
--- NOTE | 2020-03-16 20:33 | PN ---
Progress Note (short form) - Note Progress Note: Patient became bradycardic and went into PEA. Code called at 7:01 PM. CPR started immediately, 3 rounds of epi given & bicarb. Family notified during code and they still wanted everything done. Rosc was achieved Family notified again and urged to come in because we did not believe patient would make it through the night. At 7:51 PM patient had PEA again CPR was started, epi given, bicarb given CPR continued until medical futility was determined. Time of 7:59 PM Family notified at 8:05 PM
--- NOTE | 2020-03-16 20:55 | DS ---
Physical Exam: ] Patient became bradycardic and went into PEA. Code called at 7:01 PM. CPR started immediately, 3 rounds of epi given & bicarb. Family notified during code and they still wanted everything done. Rosc was achieved Family notified again and urged to come in because we did not believe patient would make it through the night. At 7:51 PM patient had PEA again CPR was started, epi given, bicarb given CPR continued until medical futility was determined. Last Vital Signs Temp Pulse Resp BP Pulse Ox 97.6 F 84 18 93/71 91 L 03/16/20 18:00 03/16/20 18:00 03/16/20 18:00 03/16/20 18:00 03/16/20 00:00 HOSPITAL COURSE: The patient was a 74 year old female with a significant past medical history of CVA, ESRD on HD. She presented to the ED from [facility] for evaluation of a dislodged PEG tube. Upon arrival of EMS, patient found to be tachycardic, hypotensive and febrile. The patient present with a trach on a ventilator. She was recently discharged from [facility] on 03/05/20 s/p large, progressing MCA stroke. Was nonverbal at baseline from that same stroke. The patient was admitted to the ICU for hypotension needed pressors 2/2 sepsis. While in the ICU the patient developed a worsening BL pneumonia, most likely due to aspiration, as well as bacteremia due to MDRO enterobacter. Patient continued to decline despite critical care. Patient became bradycardic around 7:00 PM that became PEA and a code was called. ROSC was achieved, however the patient coded again at 7:51 PM. Time of was called at 7:59 PM. Date of Admission:03/07/20 Date of Discharge: 03/16/20 Minutes to complete discharge: 36 Discharge Summary Problems reviewed: Yes Reason For Visit: HYPERGLYCEMIA, ELEVATED TROPONIN LEVEL, SEPSIS Current Active Problems Hyperglycemia (Acute) Sepsis (Acute) Unresponsiveness (Acute) Health Concerns: - Admission History of Present Illness: pt well known to me Recently discharged 74F with PMH of CVA presents to the ED via EMS from [facility] for a dislodged PEG tube. On arrival pt was tachycardic at 120 and borderline febrile at 100.3. Pt is unresponsive at baseline 2/2 CVA, unable to obtain history. She was just discharged recently after long hospital stay for CVA. pt also found to be septic/ hypotensive Admitted to icu chart is reviewed pt baseline unresponsive Pt was seen by ID, Pulmonary , Renal Cdiff negative has chronic diarrhea Was on IV zosyn , steroids was also transfused for anemia ' 03/07/20 15:03 Blood - Peripheral Venous Blood Culture - Final NO GROWTH AFTER 5 DAYS INCUBATION 03/07/20 15:03 Blood - Peripheral Venous Blood Culture - Final NO GROWTH AFTER 5 DAYS INCUBATION 03/08/20 00:30 Sputum - Endotrachea Suction/Ventilator Gram Stain - Final 03/08/20 00:30 Sputum - Endotrachea Suction/Ventilator Sputum Culture - Final Enterobacter Aerogenes Yeast Like Organism 03/08/20 05:00 Stool Clostridioides difficile Antigen - Final 03/08/20 05:00 Stool Clostridioides difficile Toxin Assay - Final leukocytosis resolved- off steroids cxray improved, doubt pneumonia s/p transfusion will d/c zosyn MDRO enterobacter- will d/c zosyn' guarded prognosis NH social workers and staff to continue ongoing discussion about goals of care for this pt Condition: - Instructions Disposition: - Home Medications Comprehensive Discharge Medication List: Ambulatory Orders Albuterol Sulfate Inhaler - [Ventolin HFA Inhaler -] 2 puff IH Q6H 01/15/20 Acetaminophen 650 mg GT TID 03/07/20 Insulin Sliding Scale [Novolog Vial Sliding Scale -] 1 vial SQ Q6H #14 units 03/13/20 This patient is new to me today: No Emergency Visit: Yes ED Registration Date: 03/07/20 Care time: The patient presented to the Emergency Department on the above date and was hospitalized for further evaluation of their emergent condition. Critical Care patient: Yes Total Critical Care Time (in minutes): 40 Critical Care Statement: The care of this patient involved high complexity decision making to prevent further life threatening deterioration of the patient's condition and/or to evaluate & treat vital organ system(s) failure or risk of failure. - Discharge Referral Referred to [facility] Med P.C.: No ATTENDING PHYSICIAN STATEMENT I saw and evaluated the patient. I reviewed the resident's note and discussed the case with the resident. I agree with the resident's findings and plan as documented. SUBJECTIVE: OBJECTIVE: ASSESSMENT AND PLAN:
[2020-03-17] MEDS ORDERED: CASPOFUNGIN ACETATE 50 MG in SODIUM CHLORIDE 250 ML IVPB SCH (11:00)
== END 2020-03-16 19:59 | disposition expired | DRG 870 ==
LOC: JER 12:54 → JERBED 19:03 → JICU 23:55 → J5S 03-08 21:48 → JICU 03-14 00:04
PROVIDERS: ADMIT Internal Medicine Pulmonary Disease; ATTEND Internal Medicine
PROC: 5A1955Z Respiratory Ventilation, Greater than 96 Consecutive Hours (ICD-10-PCS; principal; 2020-03-07)
PROC: 0DH63UZ Insertion of Feeding Device into Stomach, Percutaneous Approach (ICD-10-PCS; 2020-03-07)
PROC: 30233N1 Transfusion of Nonautologous Red Blood Cells into Peripheral Vein, Percutaneous Approach (ICD-10-PCS; 2020-03-12)
PROC: 02HV33Z Insertion of Infusion Device into Superior Vena Cava, Percutaneous Approach (ICD-10-PCS; 2020-03-13)
PROC: B548ZZA Ultrasonography of Superior Vena Cava, Guidance (ICD-10-PCS; 2020-03-13)
PROC: 5A1D70Z Performance of Urinary Filtration, Intermittent, Less than 6 Hours Per Day (ICD-10-PCS; 2020-03-14)
PROC: 5A12012 Performance of Cardiac Output, Single, Manual (ICD-10-PCS; 2020-03-16)
PROC: 02HV33Z Insertion of Infusion Device into Superior Vena Cava, Percutaneous Approach (ICD-10-PCS; 2020-03-16)
PROC: B548ZZA Ultrasonography of Superior Vena Cava, Guidance (ICD-10-PCS; 2020-03-16)
DX: A41.50 Gram-negative sepsis, unspecified (principal); N18.6 End stage renal disease; J18.9 Pneumonia, unspecified organism; J96.20 Acute and chronic respiratory failure, unspecified whether with hypoxia or hypercapnia; I50.33 Acute on chronic diastolic (congestive) heart failure; R65.21 Severe sepsis with septic shock; T85.528A Displacement of other gastrointestinal prosthetic devices, implants and grafts, initial encounter; I13.11 Hypertensive heart and chronic kidney disease without heart failure, with stage 5 chronic kidney disease, or end stage renal disease; E87.2 Acidosis; Z99.11 Dependence on respirator [ventilator] status; J98.11 Atelectasis; Y83.9 Surgical procedure, unspecified as the cause of abnormal reaction of the patient, or of later complication, without mention of misadventure at the time of the procedure; Z93.0 Tracheostomy status; E11.65 Type 2 diabetes mellitus with hyperglycemia; E11.22 Type 2 diabetes mellitus with diabetic chronic kidney disease; D63.1 Anemia in chronic kidney disease; I95.9 Hypotension, unspecified; D72.829 Elevated white blood cell count, unspecified; R00.1 Bradycardia, unspecified; R00.0 Tachycardia, unspecified; D64.9 Anemia, unspecified; E87.6 Hypokalemia; R41.82 Altered mental status, unspecified; D69.6 Thrombocytopenia, unspecified; R19.7 Diarrhea, unspecified
CPT/HCPCS: 36415; 36430; 36511; 36600; 71045-TC-FY; 74018-TC-FY; 80048; 80053; 80170; 82550; 82803; 82962; 83605; 83735; 84100; 84484; 85025; 85027; 85610; 85730; 86850; 86900; 86901; 86922; 87040; 87070; 87077; 87106; 87186; 87205; 87324; 87449; 93005; 93010; 94002; 94640; 99285-25; G0480; J0131; J1644; J3243; P9038; P9058; U0003